=== PATIENT | female | born 1975 | race Caucasian/White ===

== ENCOUNTER → 2019-02-15 | Outpatient (CLI) | payer OTHER ==
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
== END | disposition home or self-care (01) ==
LOC: RADXRMAIN 12:12
PROVIDERS: ATTEND Family Medicine
DX: S62.396A Other fracture of fifth metacarpal bone, right hand, initial encounter for closed fracture (principal); S52.611K Displaced fracture of right ulna styloid process, subsequent encounter for closed fracture with nonunion

== ENCOUNTER 2020-07-14 20:30 | Observation (INO) | payer OTHER ==
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
[2020-07-14] MEDS ORDERED: LORazepam 2 MG/ML INJ IV PRN (21:37)
[2020-07-14] MEDS ORDERED: NALOXONE 0.4 MG/ML 1 ML VIAL IV PRN (21:37)
[2020-07-14 21:50] LABS: Basophils # (A) 0.1 k/uL (0-0.2); Basophils % (A) 1 %; Eosinophils # (A) 0.1 k/uL (0-0.7); Eosinophils % (A) 2 %; HCT 40.7 % (34.0-46.0); HGB 13.5 gm/dL (11.4-16.0); Lymphocytes # (A) 1.7 k/uL (1.0-4.8); Lymphocytes % (A) 26 %; MCH 32.8 pg (25.0-35.0); MCHC 33.2 g/dL (31.0-37.0); MCV 98.8 fL (80.0-100.0); Mean Platelet Volume 6.7; Monocytes # (A) 0.3 k/uL (0-1.0); Monocytes % (A) 5 %; Neutrophils # (A) 4.2 k/uL (1.3-7.7); Neutrophils % (A) 64 %; Platelet Count 295 k/uL (150-450); RBC 4.12 m/uL (3.80-5.40); RDW 13.5 % (11.5-15.5); WBC 6.6 k/uL (3.8-10.6)
[2020-07-14 22:01] LABS: African American GFR (CKD) >90 (>60 ml/min/1.73 sqM); Anion Gap 7 mmol/L; Blood Urea Nitrogen 11 mg/dL (7-17); Calcium 8.4 mg/dL (8.4-10.2); Carbon Dioxide 24 mmol/L (22-30); Chloride 111 mmol/L (98-107); Glucose 116 mg/dL (74-99); Non-African American GFR(CKD) >90 (>60 ml/min/1.73 sqM); Sodium 142 mmol/L (137-145)
[2020-07-14] MEDS: SODIUM CHLORIDE 0.9% 1,000 ML IV SCH (22:04)
[2020-07-14 22:18] LABS: Alcohol 384 mg/dL
[2020-07-14] MEDS: LORazepam 2 MG/ML INJ IV PRN ×2 (22:41→23:10)
[2020-07-14] MEDS ORDERED: DILTIAZEM 5 MG/ML 10 ML VIAL IVP STA (23:06)
[2020-07-14] MEDS ORDERED: DILTIAZEM 125 MG in SODIUM CHLORIDE 0.9% 100 ML IV SCH (23:30)
[2020-07-15] MEDS: traMADol 50 MG TAB PO PRN ×3 (03:49→22:54)
[2020-07-15] MEDS: IBUPROFEN 800 MG TAB PO PRN (06:06)
[2020-07-15] MEDS: THIAMINE 100 MG TAB PO SCH ×2 (06:07→18:28)
[2020-07-15] MEDS ORDERED: ONDANSETRON 4 MG/2 ML VIAL IVP PRN (06:34)
[2020-07-15] MEDS: LORazepam 2 MG/ML INJ IV PRN ×4 (08:07→21:46)
[2020-07-15 09:50] LABS: Basophils # (A) 0.1 k/uL (0-0.2); Basophils % (A) 1 %; Eosinophils # (A) 0.1 k/uL (0-0.7); Eosinophils % (A) 1 %; HCT 38.9 % (34.0-46.0); HGB 13.1 gm/dL (11.4-16.0); Lymphocytes % (A) 12 %; MCH 33.8 pg (25.0-35.0); MCHC 33.7 g/dL (31.0-37.0); MCV 100.1 fL (80.0-100.0); Mean Platelet Volume 6.6; Monocytes # (A) 0.3 k/uL (0-1.0); Monocytes % (A) 4 %; Neutrophils # (A) 6.6 k/uL (1.3-7.7); Neutrophils % (A) 81 %; Platelet Count 235 k/uL (150-450); RBC 3.89 m/uL (3.80-5.40); RDW 13.4 % (11.5-15.5); WBC 8.2 k/uL (3.8-10.6)
[2020-07-15 10:04] LABS: ALT 19 U/L (4-34); AST 29 U/L (14-36); African American GFR (CKD) >90 (>60 ml/min/1.73 sqM); Albumin 3.4 g/dL (3.5-5.0); Alkaline Phosphatase 80 U/L (38-126); Anion Gap 4 mmol/L; Blood Urea Nitrogen 8 mg/dL (7-17); Calcium 7.6 mg/dL (8.4-10.2); Carbon Dioxide 26 mmol/L (22-30); Chloride 106 mmol/L (98-107); Glucose 103 mg/dL (74-99); Non-African American GFR(CKD) >90 (>60 ml/min/1.73 sqM); Sodium 136 mmol/L (137-145); Total Bilirubin 0.4 mg/dL (0.2-1.3); Total Protein 5.6 g/dL (6.3-8.2)
[2020-07-15] MEDS: METOPROLOL TARTRATE 50 MG TAB PO SCH ×3 (11:02→21:45)
[2020-07-15] MEDS: SODIUM CHLORIDE 0.9% 1,000 ML IV SCH ×2 (11:03→22:55)
--- NOTE | 2020-07-15 11:08 | P.CRDCN ---
History of Present Illness Consult date: 07/15/20 History of present illness: CHIEF COMPLAINT: SVT HISTORY OF PRESENT ILLNESS: 44-year-old female with a history of alcohol abuse and hypertension who presented to the emergency room secondary to acute alcohol intoxication. Patient was admitted to the hospital for further evaluation. Patient's alcohol level was 384 upon admission and she reports drinking at least a pint per day. Patient went into SVT overnight and cardiology was consulted for further evaluation. Patient was started on a Cardizem drip. Her heart rate has improved and is in the low 100s. She denies chest pain. Denies shortness of breath. DIAGNOSTICS: EKG reveals SVT. Heart rate 180s Laboratory data: WBC 8.2. Hemoglobin 13.1. Platelet count 235. Sodium 136. Potassium 4.0. BUN 8. Creatinine 0.60. Magnesium 1.9. Current home cardiac medications include hydrochlorothiazide 12.5 mg daily REVIEW OF SYSTEMS: CONSTITUTIONAL: Denies fever or chills. HEENT: Denies blurred vision, vision changes, or eye pain. Denies hemoptysis CARDIOVASCULAR: Denies chest pain, orthopnea, PND or palpitations RESPIRATORY: No shortness of breath. GASTROINTESTINAL: Denies abdominal pain. Denies nausea or vomiting. HEMATOLOGIC: Denies bleeding disorders. GENITOURINARY: Denies any blood in urine. SKIN: Denies pruitis. Denies rash. PHYSICAL EXAM: VITAL SIGNS: Reviewed. GENERAL: Well-developed in no acute distress. HEENT: Head is normocephalic. Pupils are equal, round. Sclerae anicteric. Mucous membranes of the mouth are moist. Neck supple. No JVD or thyromegaly LUNGS: Respirations even and unlabored. Lungs essentially clear to auscultation bilaterally. HEART: Regular rate and rhythm. S1 and S2 heard. ABDOMEN: Soft. Nontender. EXTREMITIES: Normal range of motion. No clubbing or cyanosis. Peripheral pulses intact. No lower extremity edema NEUROLOGIC: Awake and alert. Oriented x 3. ASSESSMENT: Paroxysmal supraventricular tachycardia Acute alcohol intoxication History of hypertension Alcohol abuse PLAN: Begin metoprolol 50 mg 3 times a day Discontinue HCTZ Discontinue Cardizem drip Obtain 2-D echo to assess cardiac structure and function Abstinence from alcohol encouraged Nurse practitioner note has been reviewed by physician. Signing provider agrees with the documented findings, assessment, and plan of care. Past Medical History Past Medical History: Hypertension Additional Past Medical History / Comment(s): Herniated Disk History of Any Multi-Drug Resistant Organisms: None Reported Past Surgical History: Orthopedic Surgery Additional Past Surgical History / Comment(s): Exploratory surgery Past Anesthesia/Blood Transfusion Reactions: No Reported Reaction Smoking Status: Current every day smoker Past Alcohol Use History: Abuse, Heavy Additional Past Alcohol Use History / Comment(s): just started smoking a pack a day. pt states she also just used marijuana Past Drug Use History: Marijuana - Past Family History Father Family Medical History: Osteoarthritis (OA) Medications and Allergies Home Medications Medication Instructions Recorded Confirmed Type Hydrochlorothiazide 12.5 mg PO DAILY 07/14/20 07/14/20 History [hydroCHLOROthiazide] Ibuprofen [Motrin] 800 mg PO BID 07/14/20 07/14/20 History traMADol HCl [Ultram] 50 mg PO Q8H PRN 07/14/20 07/14/20 History Allergies Allergy/AdvReac Type Severity Reaction Status Date / Time milk Allergy Unknown Verified 07/14/20 20:39 Penicillins Allergy Unknown Verified 07/14/20 20:39 Childhood Physical Exam Vitals: Vital Signs Temp Pulse Pulse Resp BP BP Pulse Ox 07/15/20 08:00 98.4 F 103 H 18 153/90 97 07/15/20 03:44 106 H 18 07/15/20 03:39 97.9 F 106 H 18 123/80 98 07/15/20 00:00 181 H 18 07/14/20 23:50 98.0 F 106 H 18 123/80 98 07/14/20 23:30 167 H 18 125/80 98 07/14/20 23:00 180 H 135/88 99 07/14/20 22:48 177 H 141/92 07/14/20 22:44 180 H 20 141/100 99 07/14/20 22:30 179 H 18 162/100 99 07/14/20 21:55 71 18 110/65 98 07/14/20 20:36 98.6 F 127 H 20 162/109 98 Intake and Output 07/14/20 07/15/20 07/15/20 22:59 06:59 14:59 Intake Total 600 Balance 600 Intake: Intake, IV Titration 600 Amount Sodium Chloride 0.9% 1, 600 000 ml @ 75 mls/hr IV . [id number] [facility] Rx#:[id number] Other: Voiding Method Toilet Toilet # Voids 2 1 Weight 77.111 kg 88 kg Results 07/15/20 09:23 07/15/20 09:23 Cardiac Enzymes 07/15/20 Range/Units 09:23 AST 29 (14-36) U/L CBC 07/14/20 07/15/20 Range/Units 21:38 09:23 WBC 6.6 8.2 (3.8-10.6) k/uL RBC 4.12 3.89 (3.80-5.40) m/uL Hgb 13.5 13.1 (11.4-16.0) gm/dL Hct 40.7 38.9 (34.0-46.0) % Plt Count 295 235 (150-450) k/uL Comprehensive Metabolic Panel 07/14/20 07/15/20 Range/Units 21:38 09:23 Sodium 142 136 L (137-145) mmol/L Potassium 4.0 4.0 (3.5-5.1) mmol/L Chloride 111 H 106 (98-107) mmol/L Carbon Dioxide 24 26 (22-30) mmol/L BUN 11 8 (7-17) mg/dL Creatinine 0.76 0.60 (0.52-1.04) mg/dL Glucose 116 H 103 H (74-99) mg/dL Calcium 8.4 7.6 L (8.4-10.2) mg/dL AST 29 (14-36) U/L ALT 19 (4-34) U/L Alkaline Phosphatase 80 (38-126) U/L Total Protein 5.6 L (6.3-8.2) g/dL Albumin 3.4 L (3.5-5.0) g/dL Current Medications Generic Name Dose Route Start Last Admin Trade Name Freq PRN Reason Stop Dose Admin Sodium Chloride 1,000 mls @ 75 mls/hr 07/14/20 21:45 07/14/20 22:04 Saline 0.9% IV 75 mls/hr .[id number] [facility]ISAEL Administration Ibuprofen 800 mg 07/15/20 03:43 07/15/20 06:06 Motrin PO 800 mg BID PRN Administration Mild to Moderate Pain Lorazepam 1 mg 07/14/20 21:37 07/15/20 08:07 Ativan IV 1 mg Q2HR PRN Administration CIWA 8 or 9 Lorazepam 1 mg 07/14/20 21:37 07/14/20 23:10 Ativan IV 1 mg Q1HR PRN Administration CIWA 10 to 15 Lorazepam 2 mg 07/14/20 21:37 Ativan IV 07/16/20 21:37 Q10M PRN CIWA 16 or higher Metoprolol Tartrate 50 mg 07/15/20 09:30 Lopressor PO TID [facility] Naloxone HCl 0.2 mg 07/14/20 21:37 Narcan IV Q2M PRN Opioid Reversal Ondansetron HCl 4 mg 07/15/20 06:34 07/15/20 06:38 Zofran IVP 4 mg Q8HR PRN Administration Nausea And Vomiting Thiamine HCl 100 mg 07/15/20 07:30 07/15/20 06:07 Vitamin B-1 PO 100 mg BID-W/MEALS MISAEL Administration Tramadol HCl 50 mg 07/15/20 03:43 07/15/20 03:49 Ultram PO 50 mg Q8H PRN Administration Moderate to Severe Pain Intake and Output 07/14/20 07/15/20 07/15/20 22:59 06:59 14:59 Intake Total 600 Balance 600 Intake: Intake, IV Titration 600 Amount Sodium Chloride 0.9% 1, 600 000 ml @ 75 mls/hr IV . [id number] [facility] Rx#:[id number] Other: Voiding Method Toilet Toilet # Voids 2 1 Weight 77.111 kg 88 kg 07/15/20 09:23 07/15/20 09:23
[2020-07-15 11:11] LABS: T4, Free (Free Thyroxine) 0.96 ng/dL (0.78-2.19)
--- NOTE | 2020-07-15 12:00 | ECHOF ---
Referral Reason:chest pain/tachycardia MEASUREMENTS -------- HEIGHT: 167.6 cm WEIGHT: 88.0 kg BP: 153/90 RVIDd: 2.8 cm (< 3.3) IVSd: 1.0 cm (0.6 - 1.1) LVIDd: 4.7 cm (3.9 - 5.3) LVPWd: 1.0 cm (0.6 - 1.1) IVSs: 2.0 cm LVIDs: 1.8 cm LVPWs: 1.9 cm LAESV Index (A-L): 18.24 ml/m Ao Diam: 3.5 cm (2.0 - 3.7) AV Cusp: 2.3 cm (1.5 - 2.6) LA Diam: 3.5 cm (2.7 - 3.8) MV EXCURSION: 18.395 mm (> 18.000) MV EF SLOPE: 143 mm/s (70 - 150) EPSS: 0.3 cm MV E Smooth: 0.98 m/s MV DecT: 247 ms MV A Smooth: 0.65 m/s MV E/A Ratio: 1.51 RAP: 5.00 mmHg RVSP: 14.48 mmHg FINDINGS -------- This was a technically good study. The left ventricular size is normal. Left ventricular wall thickness is normal. Overall left vent ricular systolic function is normal with, an EF between 55 - 60 %. The diastolic filling pattern is normal for the age of the patient 12.30. The right ventricle is normal in size. The left atrial size is normal. Normal LA size by volume 22+/-6 ml/m2. The right atrial size is normal. Interatrial and interventricular septum intact. The aortic valve is trileaflet and appears structurally normal. The mitral valve is normal. Mild mitral regurgitation is present. The tricuspid valve appears structurally normal. Trace tricuspid regurgitation present. Right parveen tricular systolic pressure is normal at < 35 mmHg. There is no pulmonic regurgitation present. The aortic root size is normal. Normal inferior vena cava with normal inspiratory collapse consistent with estimated right atrial pre ssure of 5 mmHg. There is no pericardial effusion. CONCLUSIONS -------- 1. The left ventricular size is normal. 2. Left ventricular wall thickness is normal. 3. Overall left ventricular systolic function is normal with, an EF between 55 - 60 %. 4. The diastolic filling pattern is normal for the age of the patient 12.30 5. Mild mitral regurgitation is present. 6. Trace tricuspid regurgitation present. PRINCIPAL SYSTEMS ENGINEER: Mandy Gallardo RDCS
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
[2020-07-16] MEDS: IBUPROFEN 800 MG TAB PO PRN (02:19)
[2020-07-16] MEDS: LORazepam 2 MG/ML INJ IV PRN ×4 (02:19→20:05)
[2020-07-16] MEDS: THIAMINE 100 MG TAB PO SCH ×2 (06:14→16:27)
[2020-07-16 06:53] LABS: Basophils % (A) 0 %; Eosinophils # (A) 0.3 k/uL (0-0.7); Eosinophils % (A) 5 %; HCT 37.6 % (34.0-46.0); HGB 12.5 gm/dL (11.4-16.0); Lymphocytes # (A) 1.1 k/uL (1.0-4.8); Lymphocytes % (A) 22 %; MCH 33.6 pg (25.0-35.0); MCHC 33.2 g/dL (31.0-37.0); MCV 101.4 fL (80.0-100.0); Macrocytosis Slight; Mean Platelet Volume 6.9; Monocytes # (A) 0.2 k/uL (0-1.0); Monocytes % (A) 5 %; Neutrophils # (A) 3.2 k/uL (1.3-7.7); Neutrophils % (A) 66 %; Platelet Count 193 k/uL (150-450); RBC 3.71 m/uL (3.80-5.40); RDW 13.3 % (11.5-15.5); WBC 4.8 k/uL (3.8-10.6)
[2020-07-16 07:14] LABS: ALT 18 U/L (4-34); AST 28 U/L (14-36); African American GFR (CKD) >90 (>60 ml/min/1.73 sqM); Alkaline Phosphatase 79 U/L (38-126); Anion Gap 4 mmol/L; Blood Urea Nitrogen 10 mg/dL (7-17); Calcium 7.6 mg/dL (8.4-10.2); Carbon Dioxide 24 mmol/L (22-30); Chloride 108 mmol/L (98-107); Glucose 103 mg/dL (74-99); Non-African American GFR(CKD) >90 (>60 ml/min/1.73 sqM); Potassium 3.4 mmol/L (3.5-5.1); Sodium 136 mmol/L (137-145); Total Bilirubin 0.6 mg/dL (0.2-1.3); Total Protein 5.2 g/dL (6.3-8.2)
[2020-07-16] MEDS ORDERED: Potassium Replacement Protocol 1 EACH MISC MISCELLANE PRN (07:25)
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
[2020-07-16] MEDS: METOPROLOL TARTRATE 50 MG TAB PO SCH ×3 (09:13→20:05)
[2020-07-16] MEDS: POTASSIUM CHLORIDE ER 20 MEQ TAB.ER PO SCH ×2 (09:13→11:09)
[2020-07-16] MEDS: traMADol 50 MG TAB PO PRN ×2 (09:14→20:04)
[2020-07-16] MEDS: amLODIPine 5 MG TAB PO SCH (11:09)
--- NOTE | 2020-07-16 12:42 | P.PN ---
Subjective Progress Note Date: 07/16/20 CHIEF COMPLAINT: SVT HISTORY OF PRESENT ILLNESS: Patient examined at the bedside. She denies chest pain. Denies shortness of breath. No further SVT on telemetry. Blood pressure elevated this morning. PHYSICAL EXAM: VITAL SIGNS: Reviewed. GENERAL: Well-developed in no acute distress. HEENT: Head is normocephalic. Pupils are equal, round. Sclerae anicteric. Mucous membranes of the mouth are moist. Neck supple. No JVD or thyromegaly LUNGS: Respirations even and unlabored. Lungs essentially clear to auscultation bilaterally. HEART: Regular rate and rhythm. S1 and S2 heard. EXTREMITIES: Normal range of motion. No clubbing or cyanosis. Peripheral pulses intact. No lower extremity edema NEUROLOGIC: Awake and alert. Oriented x 3. ASSESSMENT: Paroxysmal supraventricular tachycardia Acute alcohol intoxication History of hypertension Alcohol abuse PLAN: Abstinence from alcohol encouraged Continue current cardiac medications Begin Norvasc 5mg daily Monitor blood pressure Nurse practitioner note has been reviewed by physician. Signing provider agrees with the documented findings, assessment, and plan of care. Objective - Vital Signs Vital signs: Vital Signs Temp 98.8 F 07/16/20 12:00 Pulse 65 07/16/20 12:00 Resp 17 07/16/20 12:00 BP 171/96 07/16/20 12:00 Pulse Ox 100 07/16/20 12:00 Intake & Output 07/15/20 07/16/20 07/16/20 18:59 06:59 18:59 Intake Total 462 1200 0 Balance 462 1200 0 Weight 90 kg Intake: Intake, IV Titration 1200 Amount Sodium Chloride 0.9% 1, 1200 000 ml @ 75 mls/hr IV . [id number] [facility] Rx#:[id number] Oral 462 0 Other: Voiding Method Toilet Toilet Toilet # Voids 4 2 2 - Labs CBC & Chem 7: 07/16/20 06:11 07/16/20 06:11 Labs: Abnormal Lab Results - Last 24 Hours (Table) 07/16/20 07/16/20 Range/Units 06:11 06:11 RBC 3.71 L (3.80-5.40) m/uL MCV 101.4 H (80.0-100.0) fL Sodium 136 L (137-145) mmol/L Potassium 3.4 L (3.5-5.1) mmol/L Chloride 108 H (98-107) mmol/L Glucose 103 H (74-99) mg/dL Calcium 7.6 L (8.4-10.2) mg/dL Total Protein 5.2 L (6.3-8.2) g/dL Albumin 3.0 L (3.5-5.0) g/dL
[2020-07-16] MEDS: SODIUM CHLORIDE 0.9% 1,000 ML IV SCH (16:27)
[2020-07-17] MEDS: IBUPROFEN 800 MG TAB PO PRN (01:34)
[2020-07-17] MEDS: LORazepam 2 MG/ML INJ IV PRN ×4 (01:35→18:13)
[2020-07-17] MEDS: SODIUM CHLORIDE 0.9% 1,000 ML IV SCH ×2 (03:00→15:16)
[2020-07-17] MEDS: THIAMINE 100 MG TAB PO SCH ×2 (06:54→15:34)
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
[2020-07-17 07:35] LABS: African American GFR (CKD) >90 (>60 ml/min/1.73 sqM); Anion Gap 4 mmol/L; Blood Urea Nitrogen 11 mg/dL (7-17); Calcium 8.8 mg/dL (8.4-10.2); Carbon Dioxide 25 mmol/L (22-30); Chloride 107 mmol/L (98-107); Glucose 106 mg/dL (74-99); Non-African American GFR(CKD) >90 (>60 ml/min/1.73 sqM); Potassium 4.5 mmol/L (3.5-5.1); Sodium 136 mmol/L (137-145)
[2020-07-17] MEDS: METOPROLOL TARTRATE 50 MG TAB PO SCH ×3 (08:06→20:04)
[2020-07-17] MEDS: amLODIPine 5 MG TAB PO SCH ×3 (08:06→20:04)
[2020-07-17] MEDS: LOSARTAN 50 MG TAB PO SCH (09:06)
[2020-07-17] MEDS: traMADol 50 MG TAB PO PRN ×2 (09:06→18:12)
--- NOTE | 2020-07-17 11:14 | P.PN ---
Subjective Progress Note Date: 07/17/20 CHIEF COMPLAINT: SVT HISTORY OF PRESENT ILLNESS: Patient examined at the bedside. She denies chest pain. Denies shortness of breath. No further SVT on telemetry. Blood pressure remains elevated this morning at 176/110. PHYSICAL EXAM: VITAL SIGNS: Reviewed. GENERAL: Well-developed in no acute distress. HEENT: Head is normocephalic. Pupils are equal, round. Sclerae anicteric. Mucous membranes of the mouth are moist. Neck supple. No JVD or thyromegaly LUNGS: Respirations even and unlabored. Lungs essentially clear to auscultation bilaterally. HEART: Regular rate and rhythm. S1 and S2 heard. EXTREMITIES: Normal range of motion. No clubbing or cyanosis. Peripheral pulses intact. No lower extremity edema NEUROLOGIC: Awake and alert. Oriented x 3. ASSESSMENT: Paroxysmal supraventricular tachycardia Acute alcohol intoxication History of hypertension Alcohol abuse PLAN: Abstinence from alcohol encouraged Monitor blood pressure Increase Norvasc to 5 mg twice a day Begin losartan 50mg daily Nurse practitioner note has been reviewed by physician. Signing provider agrees with the documented findings, assessment, and plan of care. Objective - Vital Signs Vital signs: Vital Signs Temp 97.9 F 07/17/20 08:10 Pulse 85 07/17/20 08:10 Resp 16 07/17/20 08:10 BP 135/87 07/17/20 09:00 Pulse Ox 97 07/17/20 08:10 Intake & Output 07/16/20 07/17/20 07/17/20 18:59 06:59 18:59 Intake Total 0 236 Balance 0 236 Weight 88.4 kg Intake: Oral 0 236 Other: Voiding Method Toilet Toilet # Voids 4 1 2 - Labs CBC & Chem 7: 07/16/20 06:11 07/17/20 05:44 Labs: Abnormal Lab Results - Last 24 Hours (Table) 07/17/20 Range/Units 05:44 Sodium 136 L (137-145) mmol/L Glucose 106 H (74-99) mg/dL
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
[2020-07-18] MEDS: LORazepam 2 MG/ML INJ IV PRN ×7 (00:27→23:04)
[2020-07-18] MEDS: traMADol 50 MG TAB PO PRN ×2 (03:50→16:17)
[2020-07-18] MEDS: SODIUM CHLORIDE 0.9% 1,000 ML IV SCH ×2 (05:38→16:03)
[2020-07-18] MEDS: THIAMINE 100 MG TAB PO SCH ×2 (06:29→16:17)
[2020-07-18] MEDS: IBUPROFEN 800 MG TAB PO PRN (08:52)
[2020-07-18] MEDS: METOPROLOL TARTRATE 50 MG TAB PO SCH ×2 (08:52→20:00)
[2020-07-18] MEDS: amLODIPine 5 MG TAB PO SCH ×2 (08:52→20:00)
[2020-07-18] MEDS: LOSARTAN 50 MG TAB PO SCH (08:52)
[2020-07-19] MEDS: traMADol 50 MG TAB PO PRN ×2 (00:12→08:40)
[2020-07-19] MEDS: LORazepam 2 MG/ML INJ IV PRN ×2 (02:07→08:35)
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
[2020-07-19] MEDS: THIAMINE 100 MG TAB PO SCH (06:47)
[2020-07-19 08:32] VITALS: BP 160/87; PULSE 82; RESP 26; TEMP 97.8
[2020-07-19] MEDS: SODIUM CHLORIDE 0.9% 1,000 ML IV SCH (08:35)
[2020-07-19] MEDS: amLODIPine 5 MG TAB PO SCH (08:35)
[2020-07-19] MEDS: METOPROLOL TARTRATE 50 MG TAB PO SCH (08:35)
[2020-07-19] MEDS: LOSARTAN 50 MG TAB PO SCH (08:35)
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
== END 2020-07-19 12:19 | disposition home or self-care (01) ==
LOC: EC 20:30 → 1SOBS 21:37 → 3SCARD 23:27 → OBSVTOIN 07-15 12:33 → INTOOBSV 07-15 12:33 → UNDODISIN 07-19 12:19
PROVIDERS: ADMIT Family Medicine; ATTEND Family Medicine
DX: I47.1 Supraventricular tachycardia (principal); F10.239 Alcohol dependence with withdrawal, unspecified; F10.229 Alcohol dependence with intoxication, unspecified; Y90.8 Blood alcohol level of 240 mg/100 ml or more; I10 Essential (primary) hypertension; S05.10XA Contusion of eyeball and orbital tissues, unspecified eye, initial encounter; G89.29 Other chronic pain; Y09 Assault by unspecified means; M19.90 Unspecified osteoarthritis, unspecified site; F17.200 Nicotine dependence, unspecified, uncomplicated; Z98.890 Other specified postprocedural states; Z82.61 Family history of arthritis; Z79.1 Long term (current) use of non-steroidal anti-inflammatories (NSAID); Z79.891 Long term (current) use of opiate analgesic; Z79.899 Other long term (current) drug therapy; Z59.0 Homelessness; Z88.0 Allergy status to penicillin; Z91.011 Allergy to milk products
CPT/HCPCS: 96376 ×6; 96361 ×2; 96365; 96366; 96375 ×2; 93005; 82075; 99284; 36415; 94760; 93306; 84439; 80053 ×2; 80048 ×2; 84443; 83735 ×2; 85025 ×3; 84480; 70200; 70450; G0378 ×7; G0480; J2060 ×6; J2405; 80320

== ENCOUNTER 2021-02-20 21:11 | Inpatient (IN) | payer OTHER ==
--- NOTE | 2021-02-20 21:46 | ED ---
General Adult HPI - General Chief complaint: Anxiety Stated complaint: AL Time Seen by Provider: 02/20/21 21:23 Source: patient, EMS Mode of arrival: EMS Limitations: altered mental status (Appears intoxicated) - History of Present Illness Initial comments: Patient is 45-year-old woman with multiple complaints, the main one appearing to be that she is feeling anxious, short of breath and a little shaky. History limited as patient appears moderately intoxicated -: unknown Location: left, lower extremity Improves with: none Worsens with: none Associated Symptoms: shortness of breath - Related Data Home Medications Medication Instructions Recorded Confirmed Ibuprofen [Motrin] 800 mg PO BID 07/14/20 02/20/21 traMADol HCl [Ultram] 50 mg PO TID PRN 07/14/20 02/20/21 Multivitamins, Thera [Multivitamin 1 tab PO DAILY 02/20/21 02/20/21 (formulary)] Vitamin B-12(Unknown) 1 tab PO DAILY 02/20/21 02/20/21 hydroCHLOROthiazide [Hydrodiuril] 12.5 mg PO DAILY 02/20/21 02/20/21 Allergies Allergy/AdvReac Type Severity Reaction Status Date / Time Penicillins Allergy Unknown Verified 02/20/21 21:58 Childhood milk AdvReac Nausea & Verified 02/20/21 21:58 Vomiting & Diarrhea Review of Systems ROS Statement: Those systems with pertinent positive or pertinent negative responses have been documented in the HPI. ROS Other: All systems not noted in ROS Statement are negative. Respiratory: Reports: dyspnea Cardiovascular: Denies: chest pain, palpitations Gastrointestinal: Reports: nausea. Denies: abdominal pain Genitourinary: Denies: dysuria, hematuria Musculoskeletal: Reports: back pain (Chronic) Skin: Reports: lesions (Left foot) Neurological: Reports: weakness Psychiatric: Reports: anxiety Past Medical History Past Medical History: Hypertension Additional Past Medical History / Comment(s): Herniated Disk History of Any Multi-Drug Resistant Organisms: None Reported Past Surgical History: Orthopedic Surgery Additional Past Surgical History / Comment(s): Exploratory surgery Past Anesthesia/Blood Transfusion Reactions: No Reported Reaction Past Psychological History: No Psychological Hx Reported Smoking Status: Current every day smoker Past Alcohol Use History: Abuse, Heavy Past Drug Use History: Marijuana - Past Family History Father Family Medical History: Osteoarthritis (OA) General Exam Limitations: no limitations General appearance: alert, in no apparent distress, appears intoxicated Head exam: Present: atraumatic, normocephalic Eye exam: Present: normal appearance, PERRL, EOMI, nystagmus. Absent: scleral icterus, conjunctival injection ENT exam: Present: mucous membranes dry Neck exam: Present: normal inspection, full ROM. Absent: tenderness Respiratory exam: Present: normal lung sounds bilaterally. Absent: respiratory distress, wheezes, rales, rhonchi, stridor Cardiovascular Exam: Present: normal rhythm, tachycardia, normal heart sounds. Absent: systolic murmur, diastolic murmur, rubs, gallop GI/Abdominal exam: Present: soft. Absent: distended, tenderness, guarding, rebound, rigid, mass Extremities exam: Present: normal inspection, normal capillary refill. Absent: pedal edema, calf tenderness Back exam: Present: normal inspection. Absent: CVA tenderness (R), CVA tenderness (L), vertebral tenderness Neurological exam: Present: alert Skin exam: Present: warm, dry, intact, normal color. Absent: rash Course Vital Signs 02/20/21 02/20/21 02/21/21 21:14 21:37 00:00 Temperature 98.8 F Pulse Rate 110 H 98 Pulse Rate [ Pulse Oximetery ] Respiratory 18 28 H 18 Rate Blood Pressure 150/104 144/87 Blood Pressure [Left Arm] O2 Sat by Pulse 98 98 Oximetry 02/21/21 03:22 Temperature 98.0 F Pulse Rate Pulse Rate [ 67 Pulse Oximetery ] Respiratory 16 Rate Blood Pressure Blood Pressure 133/77 [Left Arm] O2 Sat by Pulse 97 Oximetry EKG Findings - EKG Results: EKG: interpreted by ERMD, sinus rhythm, normal axis, normal QRS, normal ST/T EKG shows: tachycardia (Rate is 108 bpm) Medical Decision Making - Medical Decision Making Patient is 45-year-old woman who is starting to manifest alcohol withdrawal syndrome. Patient be admitted and is covered with [facility] protocol - Lab Data Result diagrams: 02/22/21 06:25 02/22/21 06:25 Lab Results 02/20/21 02/20/21 02/20/21 Range/Units 21:46 21:46 21:46 WBC 5.0 (3.8-10.6) k/uL RBC 3.78 L (3.80-5.40) m/uL Hgb 12.2 (11.4-16.0) gm/dL Hct 35.1 (34.0-46.0) % MCV 93.1 (80.0-100.0) fL MCH 32.2 (25.0-35.0) pg MCHC 34.6 (31.0-37.0) g/dL RDW 16.7 H (11.5-15.5) % Plt Count 241 (150-450) k/uL MPV 7.0 Neutrophils % 44 % Lymphocytes % 45 % Monocytes % 6 % Eosinophils % 3 % Basophils % 1 % Neutrophils # 2.2 (1.3-7.7) k/uL Lymphocytes # 2.3 (1.0-4.8) k/uL Monocytes # 0.3 (0-1.0) k/uL Eosinophils # 0.1 (0-0.7) k/uL Basophils # 0.0 (0-0.2) k/uL Anisocytosis Slight PT 9.8 (9.0-12.0) sec INR 0.9 (<1.2) APTT 21.6 L (22.0-30.0) sec D-Dimer 0.94 H (<0.60) mg/L FEU Sodium 146 H (137-145) mmol/L Potassium 4.0 (3.5-5.1) mmol/L Chloride 112 H (98-107) mmol/L Carbon Dioxide 24 (22-30) mmol/L Anion Gap 10 mmol/L BUN 13 (7-17) mg/dL Creatinine 0.70 (0.52-1.04) mg/dL Est GFR (CKD-EPI)AfAm >90 (>60 ml/min/1.73 sqM) Est GFR (CKD-EPI)NonAf >90 (>60 ml/min/1.73 sqM) Glucose 101 H (74-99) mg/dL Calcium 8.2 L (8.4-10.2) mg/dL Magnesium 1.9 (1.6-2.3) mg/dL Total Bilirubin 0.2 (0.2-1.3) mg/dL AST 35 (14-36) U/L ALT 31 (4-34) U/L Alkaline Phosphatase 74 (38-126) U/L Troponin I (0.000-0.034) ng/mL NT-Pro-B Natriuret Pep pg/mL Total Protein 6.2 L (6.3-8.2) g/dL Albumin 3.7 (3.5-5.0) g/dL Urine HCG, Qual (Not Detectd) Serum Alcohol 293 H* mg/dL Coronavirus (PCR) (Not Detectd) 02/20/21 02/20/21 02/20/21 Range/Units 21:46 21:46 23:36 WBC (3.8-10.6) k/uL RBC (3.80-5.40) m/uL Hgb (11.4-16.0) gm/dL Hct (34.0-46.0) % MCV (80.0-100.0) fL MCH (25.0-35.0) pg MCHC (31.0-37.0) g/dL RDW (11.5-15.5) % Plt Count (150-450) k/uL MPV Neutrophils % % Lymphocytes % % Monocytes % % Eosinophils % % Basophils % % Neutrophils # (1.3-7.7) k/uL Lymphocytes # (1.0-4.8) k/uL Monocytes # (0-1.0) k/uL Eosinophils # (0-0.7) k/uL Basophils # (0-0.2) k/uL Anisocytosis PT (9.0-12.0) sec INR (<1.2) APTT (22.0-30.0) sec D-Dimer (<0.60) mg/L FEU Sodium (137-145) mmol/L Potassium (3.5-5.1) mmol/L Chloride (98-107) mmol/L Carbon Dioxide (22-30) mmol/L Anion Gap mmol/L BUN (7-17) mg/dL Creatinine (0.52-1.04) mg/dL Est GFR (CKD-EPI)AfAm (>60 ml/min/1.73 sqM) Est GFR (CKD-EPI)NonAf (>60 ml/min/1.73 sqM) Glucose (74-99) mg/dL Calcium (8.4-10.2) mg/dL Magnesium (1.6-2.3) mg/dL Total Bilirubin (0.2-1.3) mg/dL AST (14-36) U/L ALT (4-34) U/L Alkaline Phosphatase (38-126) U/L Troponin I <0.012 (0.000-0.034) ng/mL NT-Pro-B Natriuret Pep 106 pg/mL Total Protein (6.3-8.2) g/dL Albumin (3.5-5.0) g/dL Urine HCG, Qual Not Detected (Not Detectd) Serum Alcohol mg/dL Coronavirus (PCR) (Not Detectd) 02/20/21 Range/Units 23:36 WBC (3.8-10.6) k/uL RBC (3.80-5.40) m/uL Hgb (11.4-16.0) gm/dL Hct (34.0-46.0) % MCV (80.0-100.0) fL MCH (25.0-35.0) pg MCHC (31.0-37.0) g/dL RDW (11.5-15.5) % Plt Count (150-450) k/uL MPV Neutrophils % % Lymphocytes % % Monocytes % % Eosinophils % % Basophils % % Neutrophils # (1.3-7.7) k/uL Lymphocytes # (1.0-4.8) k/uL Monocytes # (0-1.0) k/uL Eosinophils # (0-0.7) k/uL Basophils # (0-0.2) k/uL Anisocytosis PT (9.0-12.0) sec INR (<1.2) APTT (22.0-30.0) sec D-Dimer (<0.60) mg/L FEU Sodium (137-145) mmol/L Potassium (3.5-5.1) mmol/L Chloride (98-107) mmol/L Carbon Dioxide (22-30) mmol/L Anion Gap mmol/L BUN (7-17) mg/dL Creatinine (0.52-1.04) mg/dL Est GFR (CKD-EPI)AfAm (>60 ml/min/1.73 sqM) Est GFR (CKD-EPI)NonAf (>60 ml/min/1.73 sqM) Glucose (74-99) mg/dL Calcium (8.4-10.2) mg/dL Magnesium (1.6-2.3) mg/dL Total Bilirubin (0.2-1.3) mg/dL AST (14-36) U/L ALT (4-34) U/L Alkaline Phosphatase (38-126) U/L Troponin I (0.000-0.034) ng/mL NT-Pro-B Natriuret Pep pg/mL Total Protein (6.3-8.2) g/dL Albumin (3.5-5.0) g/dL Urine HCG, Qual (Not Detectd) Serum Alcohol mg/dL Coronavirus (PCR) Not Detected (Not Detectd) Disposition Clinical Impression: Alcohol withdrawal delirium Disposition: ADMITTED IP TO THIS HOSP Condition: Serious Is patient prescribed a controlled substance at d/c from ED?: No
[2021-02-20] MEDS: SODIUM CHLORIDE 0.9% 1,000 ML IV STA ×2 (21:55→22:45)
[2021-02-20 22:02] LABS: Anisocytosis Slight; Basophils % (A) 1 %; Eosinophils # (A) 0.1 k/uL (0-0.7); Eosinophils % (A) 3 %; HCT 35.1 % (34.0-46.0); HGB 12.2 gm/dL (11.4-16.0); Lymphocytes # (A) 2.3 k/uL (1.0-4.8); Lymphocytes % (A) 45 %; MCH 32.2 pg (25.0-35.0); MCHC 34.6 g/dL (31.0-37.0); MCV 93.1 fL (80.0-100.0); Monocytes # (A) 0.3 k/uL (0-1.0); Monocytes % (A) 6 %; Neutrophils # (A) 2.2 k/uL (1.3-7.7); Neutrophils % (A) 44 %; Platelet Count 241 k/uL (150-450); RBC 3.78 m/uL (3.80-5.40); RDW 16.7 % (11.5-15.5)
[2021-02-20 22:17] LABS: ALT 31 U/L (4-34); AST 35 U/L (14-36); African American GFR (CKD) >90 (>60 ml/min/1.73 sqM); Albumin 3.7 g/dL (3.5-5.0); Alkaline Phosphatase 74 U/L (38-126); Anion Gap 10 mmol/L; Blood Urea Nitrogen 13 mg/dL (7-17); Calcium 8.2 mg/dL (8.4-10.2); Carbon Dioxide 24 mmol/L (22-30); Chloride 112 mmol/L (98-107); Glucose 101 mg/dL (74-99); Magnesium 1.9 mg/dL (1.6-2.3); Non-African American GFR(CKD) >90 (>60 ml/min/1.73 sqM); Sodium 146 mmol/L (137-145); Total Bilirubin 0.2 mg/dL (0.2-1.3); Total Protein 6.2 g/dL (6.3-8.2)
[2021-02-20 22:22] LABS: Alcohol 293 mg/dL
[2021-02-20 22:25] LABS: INR 0.9 (<1.2); Partial Thromboplastin Time 21.6 sec (22.0-30.0); Prothrombin Time 9.8 sec (9.0-12.0)
[2021-02-20 22:30] LABS: D-Dimer 0.94 mg/L FEU (<0.60)
--- NOTE | 2021-02-20 22:32 | XR ---
EXAMINATION TYPE: XR chest 2V DATE OF EXAM: 02/20/2021 COMPARISON: NONE HISTORY: Chest pain TECHNIQUE: 2 views FINDINGS: Heart and mediastinum are normal. Lungs are clear. Diaphragm is normal. Bony thorax appears normal. IMPRESSION: Normal chest..
--- NOTE | 2021-02-20 23:38 | CT ---
EXAMINATION TYPE: CT chest angio for PE DATE OF EXAM: 02/20/2021 COMPARISON: None HISTORY: PE CT DLP: 410.3 mGycm Automated exposure control for dose reduction was used. CONTRAST: Performed with IV Contrast, patient injected with 60 mL of Isovue 370. There are 3-D post processed images. The lungs are clear of infiltrate. There is no pleural effusion. There is no pericardial effusion. He art size is normal. There is no mediastinal adenopathy. There are no hilar masses. Thoracic aorta is intact. There is no aneurysm or dissection. Ascending aorta measures 3.4 cm. There is normal contrast opacification of the pulmonary arteries. There are no filling defects. The b [place] thorax is intact. There is minor spurring in the thoracic spine. Sternum is intact. There is no c ompression fracture. IMPRESSION: Normal exam. No evidence of pulmonary embolism.
[2021-02-21] MEDS ORDERED: LORazepam 2 MG/ML INJ IV STA (00:05)
[2021-02-21] MEDS ORDERED: MAG HYDROX/AL HYDROX/SIMETH 30 ML CUP PO PRN (00:08)
[2021-02-21] MEDS ORDERED: NALOXONE 0.4 MG/ML 1 ML VIAL IV PRN (00:08)
[2021-02-21] MEDS ORDERED: LORazepam 2 MG/ML INJ IV PRN (00:10)
[2021-02-21] MEDS: LORazepam 2 MG/ML INJ IV PRN ×6 (02:57→22:00)
[2021-02-21] MEDS: SODIUM CHLORIDE 0.9% 1,000 ML IV SCH ×3 (05:38→16:34)
[2021-02-21] MEDS: FAMOTIDINE 20 MG TAB PO SCH ×2 (10:10→21:59)
[2021-02-21] MEDS: traMADol 50 MG TAB PO PRN ×2 (10:10→19:13)
[2021-02-21] MEDS: CYANOCOBALAMIN 500 MCG TAB PO SCH (10:10)
[2021-02-21] MEDS: IBUPROFEN 800 MG TAB PO SCH ×2 (10:11→21:59)
[2021-02-21] MEDS: hydroCHLOROthiazide 12.5 MG CAP PO SCH (10:31)
--- NOTE | 2021-02-21 10:45 | HP ---
HISTORY AND PHYSICAL A 45-year-old white female who came in with alcohol withdrawal, alcohol intoxication, alcohol neuropathy, atypical chest pain. CT of the chest was done in the emergency room, which apparently came back okay. HOME MEDICATIONS: Multivitamin, HydroDIURIL, Tramadol, Motrin. REVIEW OF SYSTEMS: Fourteen-point review of systems is positive for tremors, weakness, nausea, hypertension. PAST MEDICAL HISTORY: Hypertension, prior alcohol intoxication admission, prior wrist surgery, herniated disc. SOCIAL HISTORY: Heavy alcohol abuse, marijuana. Current everyday smoker. PHYSICAL EXAMINATION: Temperature 98.8, pulse 110, respiratory 18-28, blood pressure is 150/104, O2 is 98. Cardiovascular S1, S2. Lungs clear. GI soft. Hematology negative Homans. Psych fair mood and affect. Neurologic alert orient x3. Ophthalmologic pupils equal, round, reactive. EKG shows some sinus tachycardia. White count 5.0, hemoglobin 12.2, platelets 241. ASSESSMENT: Alcohol intoxication, alcohol withdrawal. Alcohol level near 300, pending delirium tremens. Started on CIWA protocol, anxiety medicines, home pain medicines. for reasons for alcohol withdrawal including depression as well as discussed rehab, etc. MMODL / IJN: [id number] /
[2021-02-21] MEDS: AZITHROMYCIN 500 MG in SODIUM CHLORIDE 0.9% 250 ML IVPB SCH (11:40)
[2021-02-21] MEDS: methylPREDNISolone SOD SUCCI 40 MG/ML 1 ML VIAL IV SCH ×3 (11:40→22:49)
[2021-02-21] MEDS: THIAMINE 100 MG TAB PO SCH (16:29)
[2021-02-21] MEDS: ONDANSETRON 4 MG/2 ML VIAL IVP PRN (19:11)
[2021-02-21] MEDS: SYMBICORT 160-4.5 MCG INHALER INHALATION SCH (20:24)
[2021-02-22] MEDS: LORazepam 2 MG/ML INJ IV PRN ×3 (03:40→14:01)
[2021-02-22] MEDS: traMADol 50 MG TAB PO PRN ×2 (03:40→10:00)
[2021-02-22] MEDS: SODIUM CHLORIDE 0.9% 1,000 ML IV SCH ×3 (03:58→17:07)
[2021-02-22 07:27] LABS: Basophils % (A) 0 %; Eosinophils # (A) 0.1 k/uL (0-0.7); Eosinophils % (A) 1 %; HCT 37.7 % (34.0-46.0); HGB 13.2 gm/dL (11.4-16.0); Lymphocytes # (A) 0.4 k/uL (1.0-4.8); Lymphocytes % (A) 4 %; MCH 32.7 pg (25.0-35.0); MCV 93.5 fL (80.0-100.0); Mean Platelet Volume 8.4; Monocytes # (A) 0.3 k/uL (0-1.0); Monocytes % (A) 3 %; Neutrophils # (A) 10.3 k/uL (1.3-7.7); Neutrophils % (A) 93 %; Platelet Count 246 k/uL (150-450); RBC 4.03 m/uL (3.80-5.40); WBC 11.1 k/uL (3.8-10.6)
[2021-02-22 08:02] LABS: ALT 24 U/L (4-34); AST 25 U/L (14-36); African American GFR (CKD) >90 (>60 ml/min/1.73 sqM); Alkaline Phosphatase 86 U/L (38-126); Anion Gap 6 mmol/L; Blood Urea Nitrogen 12 mg/dL (7-17); Calcium 9.5 mg/dL (8.4-10.2); Carbon Dioxide 23 mmol/L (22-30); Chloride 106 mmol/L (98-107); Glucose 156 mg/dL (74-99); Non-African American GFR(CKD) >90 (>60 ml/min/1.73 sqM); Potassium 4.3 mmol/L (3.5-5.1); Sodium 135 mmol/L (137-145); Total Bilirubin 0.4 mg/dL (0.2-1.3); Total Protein 6.8 g/dL (6.3-8.2)
[2021-02-22] MEDS: hydroCHLOROthiazide 12.5 MG CAP PO SCH (09:31)
[2021-02-22] MEDS: IBUPROFEN 800 MG TAB PO SCH ×2 (09:31→09:52)
[2021-02-22] MEDS: FAMOTIDINE 20 MG TAB PO SCH (09:32)
[2021-02-22] MEDS: THIAMINE 100 MG TAB PO SCH ×2 (09:32→17:07)
[2021-02-22] MEDS: methylPREDNISolone SOD SUCCI 40 MG/ML 1 ML VIAL IV SCH ×2 (09:32→17:07)
[2021-02-22] MEDS: CYANOCOBALAMIN 500 MCG TAB PO SCH (09:32)
[2021-02-22] MEDS: SYMBICORT 160-4.5 MCG INHALER INHALATION SCH (09:46)
[2021-02-22] MEDS: AZITHROMYCIN 500 MG in SODIUM CHLORIDE 0.9% 250 ML IVPB SCH (10:01)
[2021-02-22] MEDS: ONDANSETRON 4 MG/2 ML VIAL IVP PRN (13:17)
[2021-02-22 14:35] VITALS: BP 151/93; PULSE 83; RESP 16; TEMP 98.1
== END 2021-02-22 17:50 | disposition home or self-care (01) | DRG 897 ==
LOC: EC 21:11 → 6NMEDSUR 02-21 00:09 → 1SOBS 02-21 03:30 → OBSVTOIN 02-22 12:34
PROVIDERS: ADMIT Family Medicine; ATTEND Family Medicine
DX: F10.231 Alcohol dependence with withdrawal delirium (principal); F17.200 Nicotine dependence, unspecified, uncomplicated; F32.9 Major depressive disorder, single episode, unspecified; F41.9 Anxiety disorder, unspecified; G62.1 Alcoholic polyneuropathy; I10 Essential (primary) hypertension; Y90.8 Blood alcohol level of 240 mg/100 ml or more; Z20.822 Contact with and (suspected) exposure to COVID-19
CPT/HCPCS: 36415; 71046; 71275; 80053; 80320; 81025; 83735; 83880; 84484; 85025; 85379; 85610; 85730; 87635; 93005; 94640; 99285

== ENCOUNTER 2021-03-26 00:27 | Inpatient (IN) | payer OTHER ==
[2021-03-26] MEDS ORDERED: LORazepam 2 MG/ML INJ IV STA (01:15)
[2021-03-26] MEDS ORDERED: SODIUM CHLORIDE 0.9% 500 ML 500 ML IV STA (01:15)
[2021-03-26] MEDS ORDERED: ADENOSINE 3 MG/ML 2 ML VIAL IVP STA (01:39)
[2021-03-26 01:48] LABS: Anisocytosis Slight; Basophils % (A) 1 %; Eosinophils # (A) 0.1 k/uL (0-0.7); Eosinophils % (A) 1 %; HCT 31.9 % (34.0-46.0); Lymphocytes # (A) 2.2 k/uL (1.0-4.8); Lymphocytes % (A) 38 %; MCH 31.7 pg (25.0-35.0); MCHC 34.5 g/dL (31.0-37.0); Mean Platelet Volume 6.8; Monocytes # (A) 0.2 k/uL (0-1.0); Monocytes % (A) 4 %; Neutrophils # (A) 3.2 k/uL (1.3-7.7); Neutrophils % (A) 55 %; Platelet Count 242 k/uL (150-450); RBC 3.47 m/uL (3.80-5.40); RDW 16.2 % (11.5-15.5); WBC 5.8 k/uL (3.8-10.6)
[2021-03-26 01:58] LABS: ALT 20 U/L (4-34); AST 35 U/L (14-36); African American GFR (CKD) >90 (>60 ml/min/1.73 sqM); Albumin 3.9 g/dL (3.5-5.0); Alkaline Phosphatase 91 U/L (38-126); Anion Gap 10 mmol/L; Blood Urea Nitrogen 6 mg/dL (7-17); Calcium 8.4 mg/dL (8.4-10.2); Carbon Dioxide 24 mmol/L (22-30); Chloride 107 mmol/L (98-107); Glucose 97 mg/dL (74-99); Magnesium 1.9 mg/dL (1.6-2.3); Non-African American GFR(CKD) >90 (>60 ml/min/1.73 sqM); Potassium 3.8 mmol/L (3.5-5.1); Sodium 141 mmol/L (137-145); Total Bilirubin 0.3 mg/dL (0.2-1.3); Total Protein 6.3 g/dL (6.3-8.2)
[2021-03-26] MEDS ORDERED: NITROGLYCERIN SL TABS 0.4 MG TAB SUBLINGUAL PRN (04:19)
[2021-03-26] MEDS ORDERED: LORazepam 2 MG/ML INJ IV PRN ×2 (04:22)
[2021-03-26] MEDS: LORazepam 2 MG/ML INJ IV PRN ×6 (06:03→19:52)
[2021-03-26] MEDS ORDERED: ONDANSETRON 4 MG/2 ML VIAL IVP PRN (12:44)
[2021-03-26] MEDS ORDERED: amLODIPine 5 MG TAB PO SCH (13:00)
[2021-03-26] MEDS ORDERED: cloNIDine HCL 0.1 MG TAB PO SCH (13:00)
[2021-03-26] MEDS: PANTOPRAZOLE 40 MG/10 ML VIAL IVP SCH (13:07)
[2021-03-26] MEDS: NICOTINE 21MG/24HR PATCH TRANSDERM SCH (13:08)
[2021-03-26] MEDS: METOPROLOL TARTRATE 25 MG TAB PO SCH ×2 (13:08→21:23)
[2021-03-26] MEDS: THIAMINE 100 MG TAB PO SCH (17:45)
[2021-03-26] MEDS: IPRATROPIUM-ALBUTEROL 3 ML NEB INHALATION PRN (19:58)
[2021-03-26] MEDS: SYMBICORT 160-4.5 MCG INHALER INHALATION SCH (19:58)
[2021-03-26] MEDS: IBUPROFEN 800 MG TAB PO SCH (20:47)
[2021-03-26] MEDS: traMADol 50 MG TAB PO PRN (23:30)
[2021-03-27] MEDS: LORazepam 2 MG/ML INJ IV PRN ×6 (01:50→23:19)
[2021-03-27] MEDS: THIAMINE 100 MG TAB PO SCH ×2 (07:04→17:41)
[2021-03-27] MEDS: traMADol 50 MG TAB PO PRN ×3 (07:06→22:14)
[2021-03-27] MEDS: SYMBICORT 160-4.5 MCG INHALER INHALATION SCH ×2 (07:56→19:50)
[2021-03-27 08:51] LABS: Anisocytosis Slight; Basophils % (A) 0 %; Eosinophils # (A) 0.1 k/uL (0-0.7); Eosinophils % (A) 3 %; HCT 36.1 % (34.0-46.0); HGB 11.4 gm/dL (11.4-16.0); Hypochromasia Slight; Lymphocytes % (A) 24 %; MCH 30.3 pg (25.0-35.0); MCHC 31.5 g/dL (31.0-37.0); MCV 96.3 fL (80.0-100.0); Macrocytosis Slight; Mean Platelet Volume 7.5; Monocytes # (A) 0.2 k/uL (0-1.0); Monocytes % (A) 5 %; Neutrophils # (A) 2.9 k/uL (1.3-7.7); Neutrophils % (A) 67 %; Platelet Count 216 k/uL (150-450); RBC 3.75 m/uL (3.80-5.40); RDW 16.8 % (11.5-15.5); WBC 4.3 k/uL (3.8-10.6)
[2021-03-27] MEDS ORDERED: MULTIVITAMINS, THERA 1 EACH TAB PO SCH (09:00)
[2021-03-27] MEDS ORDERED: VITAMIN B12 PO SCH (09:00)
[2021-03-27 09:10] LABS: African American GFR (CKD) >90 (>60 ml/min/1.73 sqM); Anion Gap 6 mmol/L; Blood Urea Nitrogen 10 mg/dL (7-17); Calcium 8.7 mg/dL (8.4-10.2); Carbon Dioxide 21 mmol/L (22-30); Chloride 108 mmol/L (98-107); Glucose 118 mg/dL (74-99); Non-African American GFR(CKD) >90 (>60 ml/min/1.73 sqM); Potassium 3.9 mmol/L (3.5-5.1); Sodium 135 mmol/L (137-145)
[2021-03-27] MEDS: NICOTINE 21MG/24HR PATCH TRANSDERM SCH (10:23)
[2021-03-27] MEDS: ASPIRIN 325 MG TAB PO SCH (10:24)
[2021-03-27] MEDS: METOPROLOL TARTRATE 25 MG TAB PO SCH (10:24)
[2021-03-27] MEDS: PANTOPRAZOLE 40 MG/10 ML VIAL IVP SCH (10:24)
[2021-03-27] MEDS: IBUPROFEN 800 MG TAB PO SCH ×2 (10:24→20:24)
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
--- NOTE | 2021-03-27 13:56 | XR ---
EXAMINATION TYPE: XR chest 2V DATE OF EXAM: 03/27/2021 COMPARISON: 02/20/2021 TECHNIQUE: PA and lateral views submitted. HISTORY: Dysrhythmia FINDINGS: The lungs are clear and there is no pneumothorax, pleural effusion, or focal pneumonia. Hypertrophic and degenerative change of the spine. IMPRESSION: 1. No acute process.
--- NOTE | 2021-03-27 14:01 | PN ---
PROGRESS NOTE 45 -year-old white female came in with alcohol intoxication due to severe family and social issues. She is homeless. She is depressed. Awaiting for psychiatry to see her. Wait for Cardiology to see for SVT and alcohol. She came in and received adenosine in the ER for long-term management and workup of this. Cardiovascular S1, S2. Lungs clear. GI soft. Extremities show mild tremor. ASSESSMENT: 1. Supraventricular tachycardia alcohol withdrawal. 2. Depression. 3. Chronic arthritis in the wrist. 4. Cervical disc disease. 5. Prognosis guarded. Await for a psych consult for depression medicine and social services specialist for placement. MMODL / IJN: [id number] /
[2021-03-27] MEDS: AZITHROMYCIN 500 MG in SODIUM CHLORIDE 0.9% 250 ML IVPB SCH (14:32)
--- NOTE | 2021-03-27 15:49 | P.CRDCN ---
History of Present Illness History of present illness: HISTORY OF PRESENTING ILLNESS This is a 45-year-old female with a history of alcohol abuse, tobacco abuse, palpitations, SVT, hypertension, anxiety who presents secondary to chest pain and palpitations for the last 3 months. Patient states she has been having fairly constant palpitations which feels like every fourth to fifth beat she will have a extra gripping sensation. This has been fairly constant. It has occurred throughout her hospitalization with telemetry showing normal sinus rhythm, no PVCs, no ectopy. Patient also feels fairly constant chest pressure sensation which is worse with anxiety and improved with anxiolytics. She drinks approximate 6 White Claws per day. She admits that undergoing withdrawals if she does not. She admits this has been going on for a few months however mainly presented secondary to "having a nervous breakdown". She states she is now wit hout a home and has had multiple social issues at home. She was seen back in July and placed on beta lise as well as which she believes was amlodipine and hydrochlorothiazide however states this was too much and gave her issues. She was then placed only on hydrochlorothiazide. Patient apparently received 12 mg of adenosine and emergency department however no emergency department note to describe any results of this intervention. Since been admitted to telemetry no arrhythmias noted. Apparently per EMS note patient initially was complaining that she is a drunk needs to be admitted and then was complaining of feeling short of breath and having a panic attack. Unclear if she cannot tell the difference between a panic attack and her SVT. DIAGNOSTICS Initial EKG shows what appears to be short RP tachycardia, SVT at a rate of 160. Repeat EKG shows normal sinus rhythm. REVIEW OF SYSTEMS At the time of my exam: CONSTITUTIONAL: Denies fever or chills. CARDIOVASCULAR: Denies chest pain, shortness of breath, orthopnea, PND or palpitations. RESPIRATORY: Denies cough. GASTROINTESTINAL: Denies abdominal pain, diarrhea, constipation, nausea or vomiting. MUSCULOSKELETAL: Denies myalgias. NEUROLOGIC: Denies numbness, tingling or weakness. ENDOCRINE: Denies fatigue, weight change, polydipsia or polyurina. GENITOURINARY: Denies burning, hematuria or urgency with micturation. HEMATOLOGIC: Denies history of anemia or bleeding. PHYSICAL EXAMINATION Vital signs reviewed. CONSTITUTIONAL: No apparent distress. HEENT: Head is normocephalic. Pupils are equal, round. Sclerae anicteric. Mucous membranes of the mouth are moist. No JVD. No carotid bruit. CHEST EXAMINATION: Lungs are clear to auscultation. No chest wall tenderness is noted on palpation or with deep breathing. HEART EXAMINATION: Regular rate and rhythm. S1, S2 heard. No murmurs, gallops or rub. ABDOMEN: Soft, nontender. Positive bowel sounds. EXTREMITIES: 2+ peripheral pulses, no lower extremity edema and no calf tenderness. NEUROLOGIC EXAMINATION: Patient is awake, alert and oriented x3. ASSESSMENT 1. Atypical chest pain likely related to anxiety 2. SVT status post adenosine 12 mg, no documentation from ER as to results of administration 3. Anxiety 4. Alcohol abuse 5. Tobacco abuse 6. Palpitations occurring on a minute by minute basis with telemetry in the hospital showing normal sinus rhythm 7. Hypertension PLAN Patient with symptoms of anxiety, apparent panic attack. Per EMS note patient was feeling like she needed to be admitted to the hospital for her alcohol abuse however also later she was complaining of feeling short of breath. EKG shows what appears to be a SVT and she received adenosine apparently which broke it however no ER documentation. Previous admission in July normal echocardiogram at that time. Do not suspect chest pain is cardiac in nature as she is continuing to have it constantly and appears likely related to anxiety, improved with anxiolytics. Patient was previously on metoprolol and taken off of this because she did not tolerate it. Do not feel she would be able to take metoprolol 3 times a day. We will change to Cardizem long-acting. Check repeat echo. Check TSH. Past Medical History Past Medical History: Hypertension Additional Past Medical History / Comment(s): Herniated Disk History of Any Multi-Drug Resistant Organisms: None Reported Past Surgical History: Orthopedic Surgery Additional Past Surgical History / Comment(s): Exploratory surgery Past Anesthesia/Blood Transfusion Reactions: No Reported Reaction Past Psychological History: No Psychological Hx Reported Smoking Status: Current every day smoker Past Alcohol Use History: Abuse, Heavy Additional Past Alcohol Use History / Comment(s): just started smoking a pack a day. pt states she also just used marijuana. Pt drinks 12 white claw a day. Pt has been drinking everyday since she was 18 yrs old. Past Drug Use History: Marijuana - Past Family History Father Family Medical History: Osteoarthritis (OA) Medications and Allergies Home Medications Medication Instructions Recorded Confirmed Type Ibuprofen [Motrin] 800 mg PO BID 07/14/20 03/26/21 History traMADol HCl [Ultram] 50 mg PO TID PRN 07/14/20 03/26/21 History Multivitamins, Thera [Multivitamin 1 tab PO DAILY 02/20/21 03/26/21 History (formulary)] Vitamin B-12(Unknown) 1 tab PO DAILY 02/20/21 03/26/21 History Budesonide-Formot 160-4.5 Mcg 2 puff INHALATION RT-BID 30 Days 02/22/21 03/26/21 Rx [Symbicort 160-4.5 Mcg Inhaler] #1 puff Hydrochlorothiazide 12.5 mg PO DAILY 03/26/21 03/26/21 History [hydroCHLOROthiazide] Allergies Allergy/AdvReac Type Severity Reaction Status Date / Time Penicillins Allergy Unknown Verified 02/20/21 21:58 Childhood milk AdvReac Nausea & Verified 02/20/21 21:58 Vomiting & Diarrhea Physical Exam Vitals: Vital Signs Temp Pulse Pulse Resp BP Pulse Ox 03/27/21 12:00 85 18 163/102 100 03/27/21 08:00 98.0 F 93 18 148/96 100 03/27/21 04:35 98.3 F 81 18 148/94 100 03/26/21 23:25 98.8 F 76 17 148/96 99 03/26/21 20:16 100 03/26/21 20:03 96 03/26/21 19:35 98.7 F 84 18 164/102 99 03/26/21 16:00 85 18 172/98 99 Intake and Output 03/27/21 03/27/21 03/27/21 06:59 14:59 22:59 Intake Total 120 Balance 120 Intake: Oral 120 Other: Voiding Method Toilet # Voids 1 0 Results 03/27/21 08:33 03/27/21 08:33 Cardiac Enzymes 03/26/21 Range/Units 14:56 Troponin I <0.012 (0.000-0.034) ng/mL CBC 03/27/21 Range/Units 08:33 WBC 4.3 (3.8-10.6) k/uL RBC 3.75 L (3.80-5.40) m/uL Hgb 11.4 (11.4-16.0) gm/dL Hct 36.1 (34.0-46.0) % Plt Count 216 (150-450) k/uL Comprehensive Metabolic Panel 03/27/21 Range/Units 08:33 Sodium 135 L (137-145) mmol/L Potassium 3.9 (3.5-5.1) mmol/L Chloride 108 H (98-107) mmol/L Carbon Dioxide 21 L (22-30) mmol/L BUN 10 (7-17) mg/dL Creatinine 0.56 (0.52-1.04) mg/dL Glucose 118 H (74-99) mg/dL Calcium 8.7 (8.4-10.2) mg/dL Current Medications Generic Name Dose Route Start Last Admin Trade Name Freq PRN Reason Stop Dose Admin Albuterol/Ipratropium 3 ml 03/26/21 12:42 03/26/21 19:58 Ipratropium-Albuterol 3 Ml Neb INHALATION 3 ml RT-QID PRN Administration Shortness Of Breath Or Wheezing Aspirin 325 mg 03/27/21 09:00 03/27/21 10:24 Aspirin 325 Mg Tab PO 325 mg DAILY MISAEL Administration Budesonide/Formoterol Fumarate 2 puff 03/26/21 20:00 03/27/21 07:56 Symbicort 160-4.5 Mcg Inhaler INHALATION 2 puff RT-BID MISAEL Administration Parenteral Vitamin Supplement 1,011.2 mls @ 100 mls/hr 03/26/21 13:30 03/26/21 17:46 10 ml/ Thiamine HCl 100 mg/ IV 100 mls/hr Folic Acid 1 mg/ Potassium .BY DURATION MISAEL Administration Chloride/Sodium Chloride Potassium Chloride/Sodium Chloride 1,000 mls @ 100 mls/hr 03/26/21 13:30 03/27/21 04:47 Ns-Kcl 20 Meq/L Iv Solution IV 100 mls/hr .BY DURATION MISAEL Administration Azithromycin 500 mg/ Sodium 250 mls @ 250 mls/hr 03/27/21 12:15 03/27/21 14:32 Chloride IVPB 250 mls/hr DAILY MISAEL Administration Ibuprofen 800 mg 03/26/21 21:00 03/27/21 10:24 Ibuprofen 800 Mg Tab PO 800 mg BID MISAEL Administration Lorazepam 1 mg 03/26/21 04:22 03/27/21 11:30 Lorazepam 2 Mg/Ml Inj IV 1 mg Q2HR PRN Administration CIWA 8 or 9 Lorazepam 1 mg 03/26/21 04:22 Lorazepam 2 Mg/Ml Inj IV Q1HR PRN CIWA 10 to 15 Lorazepam 2 mg 03/26/21 04:22 Lorazepam 2 Mg/Ml Inj IV 03/28/21 04:22 Q10M PRN CIWA 16 or higher Methylprednisolone Sodium Succinate 40 mg 03/27/21 16:00 Methylprednisolone Sod Succi 40 Mg/Ml 1 Ml Vial IV Q8HR [facility] Metoprolol Tartrate 25 mg 03/26/21 14:00 03/27/21 10:24 Metoprolol Tartrate 25 Mg Tab PO 25 mg TID [facility] Administration Nicotine 1 patch 03/26/21 13:00 03/27/21 10:23 Nicotine 21mg/24hr Patch TRANSDERM 1 patch DAILY [facility] Administration Nitroglycerin 0.4 mg 03/26/21 04:19 Nitroglycerin Sl Tabs 0.4 Mg Tab SUBLINGUAL Q5M PRN Chest Pain Ondansetron HCl 4 mg 03/26/21 12:44 03/26/21 13:08 Ondansetron 4 Mg/2 Ml Vial IVP 4 mg Q6HR PRN Administration Nausea And Vomiting Pantoprazole Sodium 40 mg 03/26/21 12:45 03/27/21 10:24 Pantoprazole 40 Mg/10 Ml Vial IVP 40 mg DAILY [facility] Administration Thiamine HCl 100 mg 03/26/21 17:30 03/27/21 07:04 Thiamine 100 Mg Tab PO 100 mg BID-W/MEALS [facility] Administration Tramadol HCl 50 mg 03/26/21 20:43 03/27/21 14:46 Tramadol 50 Mg Tab PO 50 mg TID PRN Administration Pain Intake and Output 03/27/21 03/27/21 03/27/21 06:59 14:59 22:59 Intake Total 120 Balance 120 Intake: Oral 120 Other: Voiding Method Toilet # Voids 1 0 03/27/21 08:33 03/27/21 08:33
[2021-03-27 17:27] LABS: T4, Free (Free Thyroxine) 0.92 ng/dL (0.78-2.19)
[2021-03-27] MEDS: methylPREDNISolone SOD SUCCI 40 MG/ML 1 ML VIAL IV SCH ×2 (17:41→23:19)
[2021-03-27] MEDS: DILTIAZEM CD 180 MG CAP.ER.24H PO SCH (17:41)
--- NOTE | 2021-03-27 22:54 | P.CNPUL ---
History of Present Illness Consult date: 03/27/21 Reason for consult: dyspnea Chief complaint: Patient has been hospitalized for intermittent palpitation, along with shor History of present illness: This is a 45-year-old female with long-standing history of smoking and nicotine use also has a history of on-call consumption patient came into the hospital with ongoing chest pain and shortness of breath seen and primary care office advised to be admitted into the hospital, review of data revealed that patient has a chronic long-standing history of alcohol as well as hypertension hypertensive cardiovascular disease, she stopped smoking just before hospitalization, with palpitation she is has been feeling short of breath as well, her admitting EKG significant for narrow complex tachycardia with a heart rate of 160, chest x-ray is unremarkable, patient has ongoing snoring with poor quality of sleep has not been formally evaluated for sleep disorder breathing and sleep apnea Review of Systems All systems: negative Past Medical History Past Medical History: Hypertension Additional Past Medical History / Comment(s): Herniated Disk History of Any Multi-Drug Resistant Organisms: None Reported Past Surgical History: Orthopedic Surgery Additional Past Surgical History / Comment(s): Exploratory surgery Past Anesthesia/Blood Transfusion Reactions: No Reported Reaction Past Psychological History: No Psychological Hx Reported Smoking Status: Current every day smoker Past Alcohol Use History: Abuse, Heavy Additional Past Alcohol Use History / Comment(s): just started smoking a pack a day. pt states she also just used marijuana. Pt drinks 12 white claw a day. Pt has been drinking everyday since she was 18 yrs old. Past Drug Use History: Marijuana - Past Family History Father Family Medical History: Osteoarthritis (OA) Medications and Allergies Home Medications Medication Instructions Recorded Confirmed Type Ibuprofen [Motrin] 800 mg PO BID 07/14/20 03/26/21 History traMADol HCl [Ultram] 50 mg PO TID PRN 07/14/20 03/26/21 History Multivitamins, Thera [Multivitamin 1 tab PO DAILY 02/20/21 03/26/21 History (formulary)] Vitamin B-12(Unknown) 1 tab PO DAILY 02/20/21 03/26/21 History Budesonide-Formot 160-4.5 Mcg 2 puff INHALATION RT-BID 30 Days 02/22/21 03/26/21 Rx [Symbicort 160-4.5 Mcg Inhaler] #1 puff Hydrochlorothiazide 12.5 mg PO DAILY 03/26/21 03/26/21 History [hydroCHLOROthiazide] Allergies Allergy/AdvReac Type Severity Reaction Status Date / Time Penicillins Allergy Unknown Verified 02/20/21 21:58 Childhood milk AdvReac Nausea & Verified 02/20/21 21:58 Vomiting & Diarrhea Physical Exam Vitals: Vital Signs Temp Pulse Resp BP Pulse Ox 03/27/21 19:50 98.6 F 89 18 152/97 99 03/27/21 16:00 85 18 163/113 98 03/27/21 12:00 85 18 163/102 100 03/27/21 08:00 98.0 F 93 18 148/96 100 03/27/21 04:35 98.3 F 81 18 148/94 100 03/26/21 23:25 98.8 F 76 17 148/96 99 Intake and Output 03/27/21 03/27/21 03/27/21 06:59 14:59 22:59 Intake Total 200 280 Balance 200 280 Intake: Oral 200 280 Other: Voiding Method Toilet # Voids 1 0 3 - Constitutional General appearance: average body habitus, cooperative, disheveled, morbidly obese - EENT Eyes: PERRLA ENT: hard of hearing Ears: bilateral: normal - Neck Neck: normal ROM Carotids: bilateral: upstroke normal Thyroid: bilateral: normal size - Respiratory Respiratory: bilateral: CTA - Cardiovascular Rhythm: regular Heart sounds: normal: S1, S2 - Gastrointestinal General gastrointestinal: soft - Neurologic Neurologic: CNII-XII intact - Musculoskeletal Musculoskeletal: gait normal, generalized weakness, strength equal bilaterally - Psychiatric Psychiatric: A&O x's 3, appropriate affect, intact judgment & insight Results - Laboratory Findings CBC and BMP: 03/27/21 08:33 03/27/21 08:33 Abnormal lab findings: Abnormal Labs 03/26/21 03/26/21 03/27/21 01:24 01:24 08:33 RBC 3.47 L 3.75 L Hgb 11.0 L Hct 31.9 L RDW 16.2 H 16.8 H Sodium Chloride Carbon Dioxide BUN 6 L Glucose TSH 03/27/21 03/27/21 08:33 15:28 RBC Hgb Hct RDW Sodium 135 L Chloride 108 H Carbon Dioxide 21 L BUN Glucose 118 H TSH 5.120 H - Diagnostic Findings Chest x-ray: report reviewed, image reviewed (Finding as noted above) Assessment and Plan Assessment: Narrow complex tachycardia Intermittent palpitation Likely COPD not in exacerbation Baseline obesity with component of sleep disorder breathing and sleep apnea Nicotine and alcohol abuse Hypertension hypertensive cardiovascular disease Plan: Continue to observe closely further workup and evaluation as per cardiovascular services Patient to be evaluated further outpatient setting with a pulmonary function testing as well as sleep study to evaluate for COPD and sleep disorder breathing Patient has been consult about smoking cessation Time with Patient: Greater than 30
[2021-03-28] MEDS: LORazepam 2 MG/ML INJ IV PRN ×2 (03:54→08:53)
[2021-03-28] MEDS: THIAMINE 100 MG TAB PO SCH ×2 (06:51→16:37)
[2021-03-28] MEDS: traMADol 50 MG TAB PO PRN ×3 (06:56→22:36)
[2021-03-28] MEDS: SYMBICORT 160-4.5 MCG INHALER INHALATION SCH ×2 (07:30→21:40)
[2021-03-28 08:04] LABS: Basophils % (A) 0 %; Eosinophils % (A) 0 %; HGB 12.5 gm/dL (11.4-16.0); Lymphocytes # (A) 0.5 k/uL (1.0-4.8); Lymphocytes % (A) 4 %; MCHC 33.9 g/dL (31.0-37.0); MCV 94.5 fL (80.0-100.0); Mean Platelet Volume 7.8; Monocytes # (A) 0.1 k/uL (0-1.0); Monocytes % (A) 1 %; Neutrophils # (A) 11.4 k/uL (1.3-7.7); Neutrophils % (A) 94 %; Platelet Count 246 k/uL (150-450); RBC 3.92 m/uL (3.80-5.40)
[2021-03-28 08:18] LABS: ALT 19 U/L (4-34); AST 28 U/L (14-36); African American GFR (CKD) >90 (>60 ml/min/1.73 sqM); Albumin 4.2 g/dL (3.5-5.0); Alkaline Phosphatase 91 U/L (38-126); Anion Gap 8 mmol/L; Blood Urea Nitrogen 13 mg/dL (7-17); Calcium 9.6 mg/dL (8.4-10.2); Carbon Dioxide 19 mmol/L (22-30); Chloride 108 mmol/L (98-107); Glucose 151 mg/dL (74-99); Non-African American GFR(CKD) >90 (>60 ml/min/1.73 sqM); Sodium 135 mmol/L (137-145); Total Bilirubin 0.5 mg/dL (0.2-1.3); Total Protein 7.1 g/dL (6.3-8.2)
[2021-03-28 08:25] LABS: Potassium 4.7 mmol/L (3.5-5.1)
[2021-03-28] MEDS: NICOTINE 21MG/24HR PATCH TRANSDERM SCH (08:53)
[2021-03-28] MEDS: IBUPROFEN 800 MG TAB PO SCH ×2 (08:53→21:40)
[2021-03-28] MEDS: PANTOPRAZOLE 40 MG/10 ML VIAL IVP SCH (08:54)
[2021-03-28] MEDS: methylPREDNISolone SOD SUCCI 40 MG/ML 1 ML VIAL IV SCH ×2 (08:54→16:37)
[2021-03-28] MEDS: AZITHROMYCIN 500 MG in SODIUM CHLORIDE 0.9% 250 ML IVPB SCH (08:54)
[2021-03-28] MEDS: DILTIAZEM CD 180 MG CAP.ER.24H PO SCH (08:54)
[2021-03-28] MEDS: ASPIRIN 325 MG TAB PO SCH (08:54)
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
[2021-03-28] MEDS: IPRATROPIUM-ALBUTEROL 3 ML NEB INHALATION PRN (12:42)
[2021-03-28] MEDS: diazePAM 2 MG TAB PO SCH ×3 (12:48→21:39)
[2021-03-28] MEDS: guaiFENesin 600 MG TABLET.ER PO SCH ×4 (12:49→21:40)
[2021-03-28] MEDS: ENOXAPARIN 40 MG/0.4 ML SYRINGE SQ SCH (12:49)
--- NOTE | 2021-03-28 14:47 | P.PN ---
Subjective Progress Note Date: 03/28/21 Principal diagnosis: Narrow complex tachycardia Intermittent palpitation Likely COPD not in exacerbation Baseline obesity with component of sleep disorder breathing and sleep apnea Nicotine and alcohol abuse Hypertension hypertensive cardiovascular disease 03/28/2021, patient seen eval reexamined during the rounds respiratory status remains stable, patient however has been getting bronchodilators, intermittent palpitation is present, patient has been eval or by psychiatric, denies any cough fever chest pain, This is a 45-year-old female with long-standing history of smoking and nicotine use also has a history of on-call consumption patient came into the hospital wi th ongoing chest pain and shortness of breath seen and primary care office advised to be admitted into the hospital, review of data revealed that patient has a chronic long-standing history of alcohol as well as hypertension hypertensive cardiovascular disease, she stopped smoking just before hospit alization, with palpitation she is has been feeling short of breath as well, her admitting EKG significant for narrow complex tachycardia with a heart rate of 160, chest x-ray is unremarkable, patient has ongoing snoring with poor quality of sleep has not been formally evaluated for sleep disorder breathing and sleep apnea Objective - Vital Signs Vital signs: Vital Signs Temp 98.3 F 03/28/21 08:00 Pulse 82 03/28/21 12:52 Resp 18 03/28/21 12:00 BP 125/88 03/28/21 12:00 Pulse Ox 99 03/28/21 12:00 Intake & Output 03/27/21 03/28/21 03/28/21 18:59 06:59 18:59 Intake Total 480 240 Balance 480 240 Weight 91.4 kg Intake: Oral 480 240 Other: Voiding Method Toilet # Voids 3 2 3 - Exam - Constitutional General appearance: average body habitus, cooperative, disheveled, morbidly obese - EENT Eyes: PERRLA ENT: hard of hearing Ears: bilateral: normal - Neck Neck: normal ROM Carotids: bilateral: upstroke normal Thyroid: bilateral: normal size - Respiratory Respiratory: bilateral: CTA - Cardiovascular Rhythm: regular Heart sounds: normal: S1, S2 - Gastrointestinal General gastrointestinal: soft - Neurologic Neurologic: CNII-XII intact - Musculoskeletal Musculoskeletal: gait normal, generalized weakness, strength equal bilaterally - Psychiatric Psychiatric: A&O x's 3, appropriate affect, intact judgment & insight - Labs CBC & Chem 7: 03/28/21 06:49 03/28/21 06:49 Labs: Abnormal Lab Results - Last 24 Hours (Table) 03/27/21 03/28/21 03/28/21 Range/Units 15:28 06:49 06:49 WBC 12.0 H (3.8-10.6) k/uL RDW 16.0 H (11.5-15.5) % Neutrophils # 11.4 H (1.3-7.7) k/uL Lymphocytes # 0.5 L (1.0-4.8) k/uL Sodium 135 L (137-145) mmol/L Chloride 108 H (98-107) mmol/L Carbon Dioxide 19 L (22-30) mmol/L Glucose 151 H (74-99) mg/dL TSH 5.120 H (0.465-4.680) mIU/L Assessment and Plan Assessment: Narrow complex tachycardia Intermittent palpitation Likely COPD not in exacerbation Baseline obesity with component of sleep disorder breathing and sleep apnea Nicotine and alcohol abuse Hypertension hypertensive cardiovascular disease Plan: Continue to observe closely further workup and evaluation as per cardiovascular services Psychological evaluation in progress Patient to be evaluated further outpatient setting with a pulmonary function testing as well as sleep study to evaluate for COPD and sleep disorder breathing Patient has been consult about smoking cessation Time with Patient: Greater than 30
--- NOTE | 2021-03-28 16:06 | P.PN ---
Subjective HISTORY OF PRESENTING ILLNESS This is a 45-year-old female with a history of alcohol abuse, tobacco abuse, palpitations, SVT, hypertension, anxiety who presents secondary to chest pain and palpitations for the last 3 months. Patient states she has been having fairly constant palpitations which feels like every fourth to fifth beat she will have a extra gripping sensation. This has been fairly constant. It has occurred throughout her hospitalization with telemetry showing normal sinus rhythm, no PVCs, no ectopy. Patient also feels fairly constant chest pressure sensation which is worse with anxiety and improved with anxiolytics. She drinks approximate 6 White Claws per day. She admits that undergoing withdrawals if she does not. She admits this has been going on for a few months however mainly presented secondary to "having a nervous breakdown". She states she is now without a home and has had multiple social issues at home. She was seen back in July and placed on beta lise as well as which she believes was amlodipin e and hydrochlorothiazide however states this was too much and gave her issues. She was then placed only on hydrochlorothiazide. Patient apparently received 12 mg of adenosine and emergency department however no emergency department note to describe any results of this intervention. Since been admitted to telemetry no arrhythmias noted. Apparently per EMS note patient initially was complaining that she is a drunk needs to be admitted and then was complaining of feeling short of breath and having a panic attack. Unclear if she cannot tell the difference between a panic attack and her SVT. DIAGNOSTICS Initial EKG shows what appears to be short RP tachycardia, SVT at a rate of 160. Repeat EKG shows normal sinus rhythm. 03/28 Patient seen and examined. Patient missed the continued feelings of heart beating hard however no further episodes of SVT, anxiety that brought her in. She denies any chest pain or pressure. No significant withdrawal symptoms at this time. REVIEW OF SYSTEMS At the time of my exam: CONSTITUTIONAL: Denies fever or chills. CARDIOVASCULAR: Denies chest pain, shortness of breath, orthopnea, PND or palpitations. RESPIRATORY: Denies cough. GASTROINTESTINAL: Denies abdominal pain, diarrhea, constipation, nausea or vomiting. MUSCULOSKELETAL: Denies myalgias. NEUROLOGIC: Denies numbness, tingling or weakness. ENDOCRINE: Denies fatigue, weight change, polydipsia or polyurina. GENITOURINARY: Denies burning, hematuria or urgency with micturation. HEMATOLOGIC: Denies history of anemia or bleeding. PHYSICAL EXAMINATION Vital signs reviewed. CONSTITUTIONAL: No apparent distress. HEENT: Head is normocephalic. Pupils are equal, round. Sclerae anicteric. Mucous membranes of the mouth are moist. No JVD. No carotid bruit. CHEST EXAMINATION: Lungs are clear to auscultation. No chest wall tenderness is noted on palpation or with deep breathing. HEART EXAMINATION: Regular rate and rhythm. S1, S2 heard. No murmurs, gallops or rub. ABDOMEN: Soft, nontender. Positive bowel sounds. EXTREMITIES: 2+ peripheral pulses, no lower extremity edema and no calf te nderness. NEUROLOGIC EXAMINATION: Patient is awake, alert and oriented x3. ASSESSMENT 1. Atypical chest pain likely related to anxiety 2. SVT status post adenosine 12 mg, no documentation from ER as to results of administration. Unclear if most of her anxiety attacks are linked to SVT episodes 3. Anxiety 4. Alcohol abuse 5. Tobacco abuse 6. Palpitations occurring on a minute by minute basis with telemetry in the hospital showing normal sinus rhythm 7. Hypertension PLAN Check 2-D echo tomorrow If unrevealing, would recommend continued medical therapy with diltiazem with outpatient follow-up with electrophysiology for possible SVT ablation. Unclear if patient's anxiety attacks come about because of SVT episodes although she clearly has underlying anxiety as well. Discussed tobacco and alcohol cessation. Objective - Vital Signs Vital signs: Vital Signs Temp 98.3 F 03/28/21 08:00 Pulse 82 03/28/21 12:52 Resp 18 03/28/21 12:00 BP 125/88 03/28/21 12:00 Pulse Ox 99 03/28/21 12:00 Intake & Output 03/27/21 03/28/21 03/28/21 18:59 06:59 18:59 Intake Total 480 240 Balance 480 240 Weight 91.4 kg Intake: Oral 480 240 Other: Voiding Method Toilet # Voids 3 2 3 - Labs CBC & Chem 7: 03/28/21 06:49 03/28/21 06:49 Labs: Abnormal Lab Results - Last 24 Hours (Table) 03/27/21 03/28/21 03/28/21 Range/Units 15:28 06:49 06:49 WBC 12.0 H (3.8-10.6) k/uL RDW 16.0 H (11.5-15.5) % Neutrophils # 11.4 H (1.3-7.7) k/uL Lymphocytes # 0.5 L (1.0-4.8) k/uL Sodium 135 L (137-145) mmol/L Chloride 108 H (98-107) mmol/L Carbon Dioxide 19 L (22-30) mmol/L Glucose 151 H (74-99) mg/dL TSH 5.120 H (0.465-4.680) mIU/L
--- NOTE | 2021-03-28 19:53 | P.PN ---
Progress Note - Text Progress Note Date: 03/28/21 Presenting complaint: Alcohol withdrawal Hospital course: This patient long-standing alcohol drinker presented with alcohol withdrawal after having a major mental breakdown with the family. She was asked to leave the house. She is put on the CIWA scale. Today: Had some breakfast. Anxious. Has some tremors. No hallucinations. Review of systems: Was done for constitutional, cardiovascular, GI, pulmonary. relevant finding as above Active Medications Albuterol/Ipratropium (Ipratropium-Albuterol 3 Ml Neb) 3 ml INHALATION RT-QID PRN PRN Reason: Shortness Of Breath Or Wheezing Last Admin: 03/28/21 12:42 Dose: 3 ml Documented by: Budesonide/Formoterol Fumarate (Symbicort 160-4.5 Mcg Inhaler) 2 puff INHALATION RT-BID [facility] Last Admin: 03/28/21 07:30 Dose: Not Given Documented by: Diazepam (Diazepam 2 Mg Tab) 2 mg PO TID [facility] Last Admin: 03/28/21 16:37 Dose: 2 mg Documented by: Diltiazem HCl (Diltiazem Cd 180 Mg Cap.Er.24h) 180 mg PO DAILY [facility] Last Admin: 03/28/21 08:54 Dose: 180 mg Documented by: Enoxaparin Sodium (Enoxaparin 40 Mg/0.4 Ml Syringe) 40 mg SQ DAILY [facility] Last Admin: 03/28/21 12:49 Dose: 40 mg Documented by: Famotidine (Famotidine 20 Mg Tab) 20 mg PO BID [facility] Guaifenesin (Guaifenesin 600 Mg Tablet.Er) 600 mg PO QID [facility] Last Admin: 03/28/21 16:37 Dose: 600 mg Documented by: Azithromycin 500 mg/ Sodium (Chloride) 250 mls @ 250 mls/hr IVPB DAILY [facility] Last Admin: 03/28/21 08:54 Dose: 250 mls/hr Documented by: Ibuprofen (Ibuprofen 800 Mg Tab) 800 mg PO BID [facility] Last Admin: 03/28/21 08:53 Dose: 800 mg Documented by: Lorazepam (Lorazepam 2 Mg/Ml Inj) 1 mg IV Q2HR PRN PRN Reason: CIWA 8 or 9 Last Admin: 03/28/21 08:53 Dose: 1 mg Documented by: Lorazepam (Lorazepam 2 Mg/Ml Inj) 1 mg IV Q1HR PRN PRN Reason: CIWA 10 to 15 Methylprednisolone Sodium Succinate (Methylprednisolone Sod Succi 40 Mg/Ml 1 Ml Vial) 40 mg IV Q8HR [facility] Last Admin: 03/28/21 16:37 Dose: 40 mg Documented by: Nicotine (Nicotine 21mg/24hr Patch) 1 patch TRANSDERM DAILY [facility] Last Admin: 03/28/21 08:53 Dose: 1 patch Documented by: Nitroglycerin (Nitroglycerin Sl Tabs 0.4 Mg Tab) 0.4 mg SUBLINGUAL Q5M PRN PRN Reason: Chest Pain Ondansetron HCl (Ondansetron 4 Mg/2 Ml Vial) 4 mg IVP Q6HR PRN PRN Reason: Nausea And Vomiting Last Admin: 03/26/21 13:08 Dose: 4 mg Documented by: Sertraline HCl (Sertraline 100 Mg Tab) 100 mg PO DAILY [facility] Thiamine HCl (Thiamine 100 Mg Tab) 100 mg PO BID-W/MEALS [facility] Last Admin: 03/28/21 16:37 Dose: 100 mg Documented by: Tramadol HCl (Tramadol 50 Mg Tab) 50 mg PO TID PRN PRN Reason: Pain Last Admin: 03/28/21 16:38 Dose: 50 mg Documented by: Trazodone HCl (Trazodone Hcl 50 Mg Tab) 50 mg PO HS [facility] INVESTIGATIONS, reviewed in the clinical context: WBC 12 hemoglobin 12.5 platelets 246 potassium 4.7 creatinine 0.5 for Assessment and plan: -Acute alcohol withdrawal syndrome Patient on CIWA scale. Add Valium 2 mg 3 times a day scheduled. This can be slowly tapered down. -Chronic alcohol dependence Thiamine added. -Chronic nicotine dependence Nicotine patch -COPD in a current smoker DC Solu-Medrol. Change to by mouth prednisone. On DuoNeb and Symbicort. -Obesity BMI 32.5 Weight loss measures. And follow with PCP -Essential hypertension Cardizem CD -SVT now back in sinus rhythm Status post adenosine. -Panic disorder, major depressive disorder, PTSD Started on Zoloft and trazodone by psychiatry. Care was discussed with the patient. Started on Valium. This can be cut back tomorrow. DC IV Solu-Medrol. Change oral prednisone. Encourage activity.
[2021-03-28] MEDS: predniSONE 20 MG TAB PO SCH (21:39)
[2021-03-28] MEDS: FAMOTIDINE 20 MG TAB PO SCH (21:40)
[2021-03-28] MEDS: traZODone HCL 50 MG TAB PO SCH (21:40)
[2021-03-29] MEDS: THIAMINE 100 MG TAB PO SCH ×2 (06:47→17:12)
[2021-03-29] MEDS: IBUPROFEN 800 MG TAB PO SCH ×2 (08:11→20:00)
[2021-03-29] MEDS: guaiFENesin 600 MG TABLET.ER PO SCH ×4 (08:11→21:24)
[2021-03-29] MEDS: SERTRALINE 100 MG TAB PO SCH (08:11)
[2021-03-29] MEDS: diazePAM 2 MG TAB PO SCH ×3 (08:11→20:00)
[2021-03-29] MEDS: DILTIAZEM CD 180 MG CAP.ER.24H PO SCH (08:11)
[2021-03-29] MEDS: AZITHROMYCIN 500 MG in SODIUM CHLORIDE 0.9% 250 ML IVPB SCH (08:12)
[2021-03-29] MEDS: ENOXAPARIN 40 MG/0.4 ML SYRINGE SQ SCH (08:12)
[2021-03-29] MEDS: predniSONE 20 MG TAB PO SCH (08:12)
[2021-03-29] MEDS: FAMOTIDINE 20 MG TAB PO SCH ×2 (08:12→20:00)
[2021-03-29] MEDS: NICOTINE 21MG/24HR PATCH TRANSDERM SCH (08:14)
[2021-03-29] MEDS: traMADol 50 MG TAB PO PRN ×3 (08:18→21:23)
[2021-03-29] MEDS: SYMBICORT 160-4.5 MCG INHALER INHALATION SCH ×2 (08:53→21:13)
--- NOTE | 2021-03-29 11:28 | P.PN ---
Subjective Progress Note Date: 03/29/21 Principal diagnosis: Narrow complex tachycardia Intermittent palpitation Likely COPD not in exacerbation Baseline obesity with component of sleep disorder breathing and sleep apnea Nicotine and alcohol abuse Hypertension hypertensive cardiovascular disease 03/29/2021, patient seen eval examined during the rounds labs reviewed medications reviewed care plan discussed, respiratory status remains stable, denies any chest pain, intermittent shortness of breath and palpitation are present, patient IV steroids have been switched to oral, remains on bronchodilator cardiovascular services also following agree with discharge planning and follow-up in outpatient basis, we'll recommend quickly taper and DC prednisone in 5 days 03/28/2021, patient seen eval reexamined during the rounds respiratory status remains stable, patient however has been getting bronchodilators, intermittent palpitation is present, patient has been eval or by psychiatric, denies any cough fever chest pain, This is a 45-year-old female with long-standing history of smoking and nicotine use also has a history of on-call consumption patient came into the hospital with ongoing chest pain and shortness of breath seen and primary care office advised to be admitted into the hospital, review of data revealed that patient has a chronic long-standing history of alcohol as well as hypertension hypert ensive cardiovascular disease, she stopped smoking just before hospitalization, with palpitation she is has been feeling short of breath as well, her admitting EKG significant for narrow complex tachycardia with a heart rate of 160, chest x-ray is unremarkable, patient has ongoing snoring with poor quality of sleep has not been formally evaluated for sleep disorder breathing and sleep apnea Objective - Vital Signs Vital signs: Vital Signs Temp 98.2 F 03/29/21 08:00 Pulse 89 03/29/21 08:00 Resp 18 03/29/21 08:00 BP 146/83 03/29/21 08:00 Pulse Ox 99 03/29/21 08:00 Intake & Output 03/28/21 03/29/21 03/29/21 18:59 06:59 18:59 Intake Total 360 Balance 360 Weight 92.3 kg Intake: Oral 360 Other: Voiding Method Toilet # Voids 3 1 - Exam - Constitutional General appearance: average body habitus, cooperative, disheveled, morbidly obese - EENT Eyes: PERRLA ENT: hard of hearing Ears: bilateral: normal - Neck Neck: normal ROM Carotids: bilateral: upstroke normal Thyroid: bilateral: normal size - Respiratory Respiratory: bilateral: CTA - Cardiovascular Rhythm: regular Heart sounds: normal: S1, S2 - Gastrointestinal General gastrointestinal: soft - Neurologic Neurologic: CNII-XII intact - Musculoskeletal Musculoskeletal: gait normal, generalized weakness, strength equal bilaterally - Psychiatric Psychiatric: A&O x's 3, appropriate affect, intact judgment & insight - Labs CBC & Chem 7: 03/28/21 06:49 03/28/21 06:49 Assessment and Plan Assessment: Narrow complex tachycardia Intermittent palpitation Likely COPD with acute exacerbation Baseline obesity with component of sleep disorder breathing and sleep apnea Nicotine and alcohol abuse Hypertension hypertensive cardiovascular disease Plan: Continue to observe closely further workup and evaluation as per cardiovascular services Psychological evaluation in progress Patient to be evaluated further outpatient setting with a pulmonary function testing as well as sleep study to evaluate for COPD and sleep disorder breathing Patient has been consult about smoking cessation Taper and DC prednisone Time with Patient: Greater than 30
--- NOTE | 2021-03-29 12:36 | ECHOF ---
Referral Reason:re: SVT MEASUREMENTS -------- HEIGHT: 167.6 cm WEIGHT: 92.1 kg BP: 164/75 IVSd: 1.4 cm (0.6 - 1.1) LVIDd: 5.1 cm (3.9 - 5.3) LVPWd: 1.2 cm (0.6 - 1.1) IVSs: 1.8 cm LVIDs: 3.2 cm LVPWs: 1.6 cm LAESV Index (A-L): 28.73 ml/m Ao Diam: 3.6 cm (2.0 - 3.7) AV Cusp: 1.4 cm (1.5 - 2.6) LA Diam: 3.6 cm (2.7 - 3.8) MV EXCURSION: 21.171 mm (> 18.000) MV EF SLOPE: 96 mm/s (70 - 150) EPSS: 0.3 cm MV E Smooth: 0.73 m/s MV DecT: 238 ms MV A Smooth: 0.90 m/s MV E/A Ratio: 0.81 AR PHT: 1154 ms RAP: 5.00 mmHg RVSP: 11.68 mmHg FINDINGS -------- This was a technically good study. The left ventricular size is normal. There is mild concentric left ventricular hypertrophy. Overa ll left ventricular systolic function is normal with, an EF between 55 - 60 %. The diastolic fillin g pattern is normal for the age of the patient 9.52. The right ventricle is normal in size. The left atrial size is normal. Normal LA size by volume 22+/-6 ml/m2. The right atrial size is normal. Aortic valve is trileaflet and is mildly thickened. Trace amount of aortic regurgitation. The mitral valve is normal. The mitral valve leaflets are mildly thickened. Mild mitral regurgita tion is present. Cannot rule out vegetation. The tricuspid valve appears structurally normal. Mild tricuspid regurgitation present. Right vent ricular systolic pressure is normal at < 35 mmHg. There is no pulmonic regurgitation present. The aortic root size is normal. Normal inferior vena cava with normal inspiratory collapse consistent with estimated right atrial pre ssure of 5 mmHg. There is no pericardial effusion. CONCLUSIONS -------- 1. The left ventricular size is normal. 2. There is mild concentric left ventricular hypertrophy. 3. Overall left ventricular systolic function is normal with, an EF between 55 - 60 %. 4. The diastolic filling pattern is normal for the age of the patient 9.52 5. Aortic valve is trileaflet and is mildly thickened. 6. Trace amount of aortic regurgitation. 7. The mitral valve leaflets are mildly thickened. 8. Mild mitral regurgitation is present. 9. Cannot rule out vegetation. 10. Mild tricuspid regurgitation present. 11. There is no pericardial effusion. MEDICAL PATHOLOGY TEACHER: Mandy Gallardo RDCS
--- NOTE | 2021-03-29 12:48 | P.PN ---
Subjective This is a 45-year-old female with a history of alcohol abuse, tobacco abuse, palpitations, SVT, hypertension, anxiety who presents secondary to chest pain and palpitations for the last 3 months. Patient states she has been having fairly constant palpitations which feels like every fourth to fifth beat she will have a extra gripping sensation. This has been fairly constant. It has occurred throughout her hospitalization with telemetry showing normal sinus rhythm, no PVCs, no ectopy. Patient also feels fairly constant chest pressure sensation which is worse with anxiety and improved with anxiolytics. She drinks approximate 6 [place] Claws per day. She admits that undergoing withdrawals if she does not. She admits this has been going on for a few months however mainly presented secondary to "having a nervous breakdown". She states she is now without a home and has had multiple social issues at home. She was seen back in July and placed on beta lise as well as which she believes was amlodipine and hydrochlorothiazide however states this was too much and gave her issues. She was then placed only on hydrochlorothiazide. Patient apparently received 12 mg of adenosine and emergency department however no emergency depart ment note to describe any results of this intervention. Since been admitted to telemetry no arrhythmias noted. Apparently per EMS note patient initially was complaining that she is a drunk needs to be admitted and then was complaining of feeling short of breath and having a panic attack. Unclear if she cannot tell the difference between a panic attack and her SVT. 03/29/2021 Pt seen and examined resting comfortably laying flat in bed in no acute distress. She denies chest pain, shortness of breath, dizziness or palpitations. She appears shaky. Blood pressure 164/88 heart rate 80 afebrile and maintaining oxygen saturation on room air. Currently maintained on diltiazem 180 mg daily. Echocardiogram obtained reveals preserved LV systolic function with ejection fraction 55-60%, normal diastolic filling pattern, mild mitral regurgitation with possible vegetation on the mitral valve. GENERAL: Well-appearing, well-nourished and in no acute distress. NECK: Supple without JVD or thyromegaly. LUNGS: Breath sounds clear to auscultation bilaterally. Respiration equal and unlabored. No wheezes, rales or rhonchi. HEART: Regular rate and rhythm without murmurs, rubs or gallops. S1 and S2 h eard. EXTREMITIES: Normal range of motion, no edema. No clubbing or cyanosis. Peripheral pulses intact. ASSESSMENT SVT Chest pain, atypical. An acute coronary event has been ruled out. Alcohol abuse Alcohol withdrawal Leukocytosis Hypertension Chronic nicotine dependence Obesity, BMI 32 PLAN Check blood cultures and urine drug screen. Continue cardizem for rate control and resume hydrochlorothiazide for optimal blood pressure control. Further recommendations to follow based on clinical course. Nurse Practitioner note has been reviewed, I agree with a documented findings and plan of care. Patient was seen and examined. Objective - Vital Signs Vital signs: Vital Signs Temp 98.2 F 03/29/21 08:00 Pulse 80 03/29/21 12:00 Resp 16 03/29/21 12:00 BP 164/88 03/29/21 12:00 Pulse Ox 99 03/29/21 12:00 Intake & Output 03/28/21 03/29/21 03/29/21 18:59 06:59 18:59 Intake Total 360 300 Balance 360 300 Weight 92.3 kg Intake: Oral 360 300 Other: Voiding Method Toilet # Voids 3 1 - Labs CBC & Chem 7: 03/28/21 06:49 03/28/21 06:49
[2021-03-29] MEDS: hydroCHLOROthiazide 25 MG TAB PO SCH (13:08)
--- NOTE | 2021-03-29 13:59 | P.PN ---
Progress Note - Text Progress Note Date: 03/29/21 INTERVAL HISTORY: Patient was seen at bedside. Patient reports that she continues to feel emot ional but is not presenting with any suicidal or homicidal ideation, intention, and/or plan. She states that upon discharge, she plans to the unemployment office, check out a new apartment, and look into community resources for outpatient rehabilitation for her alcohol use. The patient is also considering going to an inpatient rehab facility when she ties up all the loose ends that she has currently in the community. The patient reports that she was able to sleep well last night and is tolerating her medications well. The patient is open to trying a trial of acamprosate to address her alcohol use disorder. We discussed other options including naltrexone due to the patient receiving tramadol in the outpatient setting, the patient is not a good candidate at this time. The patient does report marijuana use but denies any illicit drug use. She vehemently denies any IV drug use. MENTAL STATUS EXAM: General Appearance: Patient appears to be stated age is alert, pleasant, and cooperative. Patient appears to have fair hygiene and grooming wearing hospital gown with fair eye contact. Behavior: Patient is calmly lying in bed without any agitated behavior. Normal psychomotor activity. Eye contact is appropriate. Patient is appropriately tearful. Speech: Patient's speech is fluent and nonpressured. Spontaneous, with normal rate, tone, and volume. Mood/Affect: Patient reports their mood is " a little overwhelmed," affect is congruent, but appropriately tearful. Suicidality/Homicidality: Patient denies having any suicidal or homicidal ideation intent or plan. Perceptions: Patient endorses auditory hallucinations but no visual hallucinations. Though content/process: There is no evidence of any delusional thought content and thought process is linear and goal-directed. Memory and concentration: AOX3, grossly intact for the purposes of this session. Can spell "WORLD" backwards Judgment and insight: Fair Vital Signs Temp 98.2 F 03/29/21 08:00 Pulse 80 03/29/21 12:00 Resp 16 03/29/21 12:00 BP 164/88 03/29/21 12:00 Pulse Ox 99 03/29/21 12:00 Intake & Output 03/28/21 03/29/21 03/29/21 18:59 06:59 18:59 Intake Total 360 300 Balance 360 300 Weight 92.3 kg Intake: Oral 360 300 Other: Voiding Method Toilet # Voids 3 1 ASSESSMENT: Panic disorder Major depressive disorder Posttraumatic stress disorder Alcohol dependence Currently, the patient is presenting as appropriately tearful and future oriented. She is currently not presenting with any imminent risk of harm to self or others. The patient appears to be motivated to quit alcohol at this time. She has multiple psychosocial stresses that are exacerbating her psychiatric symptoms. PLAN: -At this time patient DOES NOT meet criteria for inpatient psychiatric admission. -Continue Zoloft 100 mg by mouth daily for depression/anxiety/PTSD. -Continue trazodone 50 mg by mouth at bedtime for insomnia -Start acamprosate 333 mg by mouth 3 times a day for alcohol cessation -Recommend outpatient psychiatric follow-up. The patient should also receive a referral for substance abuse counseling services. -Psychiatry will sign off at this time. Please contact us if there are any questions.
[2021-03-29] MEDS: ACAMPROSATE CALCIUM 333 MG TABLET.DR PO SCH ×2 (17:12→21:24)
[2021-03-29] MEDS: traZODone HCL 50 MG TAB PO SCH (20:00)
--- NOTE | 2021-03-29 23:49 | PN ---
PROGRESS NOTE 45-year-old white female on Azithromycin, , nicotine patch. Came in with alcohol withdrawal. Psychiatry put on some antidepressants. Cardiology is evaluating with some blood cultures for possible endocarditis. She had a CT in the ER. Cardiology saw the patient. The patient continued on diltiazem 180 daily. Echo showed ejection fraction 55-60 percent. Possible vegetation on the mitral valve, so blood cultures will be done. If negative, patient could possibly be discharged home. Will see what Dr. Tuttle says on recommendations. Psychiatry. Continue current treatment. Home monitoring for placement per social organization professor. Cardiovascular S1-S2. Lungs clear. GI soft. Extremities: No edema. ASSESSMENT AND PLAN: 1. Supraventricular tachycardia. 2. Alcohol dependence. 3. Alcohol withdrawal. 4. Depression. 5. Possible mitral valve vegetation. 6. Prognosis guarded. 7. Do blood cultures. 8. Follow up with Dr. Tuttle with consultation. MMODL / IJN: [id number] /
[2021-03-30 00:52] LABS: Urine Alcohol Negative (Negative); Urine Barbiturate Negative (Negative); Urine Cocaine Negative (Negative); Urine Methadone Negative (Negative); Urine Opiates Negative (Negative); Urine Phencyclidine Negative (Negative)
[2021-03-30] MEDS: traMADol 50 MG TAB PO PRN ×3 (06:42→20:28)
[2021-03-30] MEDS: THIAMINE 100 MG TAB PO SCH ×2 (06:42→17:23)
[2021-03-30] MEDS: SYMBICORT 160-4.5 MCG INHALER INHALATION SCH ×2 (08:01→20:36)
[2021-03-30] MEDS: NICOTINE 21MG/24HR PATCH TRANSDERM SCH (08:10)
[2021-03-30] MEDS: diazePAM 2 MG TAB PO SCH ×3 (08:11→20:27)
[2021-03-30] MEDS: AZITHROMYCIN 500 MG TAB PO SCH (08:11)
[2021-03-30] MEDS: DILTIAZEM CD 180 MG CAP.ER.24H PO SCH (08:11)
[2021-03-30] MEDS: predniSONE 20 MG TAB PO SCH (08:11)
[2021-03-30] MEDS: ACAMPROSATE CALCIUM 333 MG TABLET.DR PO SCH ×3 (08:11→20:26)
[2021-03-30] MEDS: SERTRALINE 100 MG TAB PO SCH (08:11)
[2021-03-30] MEDS: guaiFENesin 600 MG TABLET.ER PO SCH ×4 (08:11→20:26)
[2021-03-30] MEDS: IBUPROFEN 800 MG TAB PO SCH ×2 (08:12→20:27)
[2021-03-30] MEDS: FAMOTIDINE 20 MG TAB PO SCH ×2 (08:12→20:26)
[2021-03-30] MEDS: hydroCHLOROthiazide 25 MG TAB PO SCH (08:12)
[2021-03-30] MEDS: ENOXAPARIN 40 MG/0.4 ML SYRINGE SQ SCH (08:13)
--- NOTE | 2021-03-30 11:19 | P.PN ---
Subjective This is a 45-year-old female with a history of alcohol abuse, tobacco abuse, palpitations, SVT, hypertension, anxiety who presents secondary to chest pain and palpitations for the last 3 months. Patient states she has been having fairly constant palpitations which feels like every fourth to fifth beat she will have a extra gripping sensation. This has been fairly constant. It has occurred throughout her hospitalization with telemetry showing normal sinus rhythm, no PVCs, no ectopy. Patient also feels fairly constant chest pressure sensation which is worse with anxiety and improved with anxiolytics. She drinks approximate 6 White Claws per day. She admits that undergoing withdrawals if she does not. She admits this has been going on for a few months however mainly presented secondary to "having a nervous breakdown". She states she is now without a home and has had multiple social issues at home. She was seen back in July and placed on beta lise as well as which she believes was amlodipine and hydrochlorothiazide however states this was too much and gave her issues. She was then placed only on hydrochlorothiazide. Patient apparently received 12 mg of adenosine and emergency department however no emergency depart ment note to describe any results of this intervention. Since been admitted to telemetry no arrhythmias noted. Apparently per EMS note patient initially was complaining that she is a drunk needs to be admitted and then was complaining of feeling short of breath and having a panic attack. Unclear if she cannot tell the difference between a panic attack and her SVT. 03/30/2021 Pt seen and examined resting comfortably laying flat in bed in no acute distress. She denies chest pain, shortness of breath or dizziness. She continues to feel her heart "skipping". Telemetry tracings reviewed extensively. She has maintained sinus rhythm with no PVC's, PAC's or tachycardia. Blood pressure 131/81 heart rate 82 afebrile maintaining oxygen saturation on room air. Blood cultures have been obtained, results pending. Urine drug screen is positive for cannabinoids and benzodiazepines. Denies history of IV drug use. GENERAL: Well-appearing, well-nourished and in no acute distress. NECK: Supple without JVD or thyromegaly. LUNGS: Breath sounds clear to auscultation bilaterally. Respiration equal and unlabored. No wheezes, rales or rhonchi. HEART: Regular rate and rhythm without murmurs, rubs or gallops. S1 and S2 heard. EXTREMITIES: Normal range of motion, no edema. No clubbing or cyanosis. Peripheral pulses intact. ASSESSMENT SVT Chest pain, atypical. An acute coronary event has been ruled out. Alcohol abuse Alcohol withdrawal Leukocytosis Hypertension Chronic nicotine dependence Obesity, BMI 32 PLAN Blood cultures pending. Further recommendations to follow based on blood culture results. Dr. Connors will review echocardiographic images. Nurse Practitioner note has been reviewed, I agree with a documented findings and plan of care. Patient was seen and examined. Objective - Vital Signs Vital signs: Vital Signs Temp 98.4 F 03/30/21 08:00 Pulse 82 03/30/21 08:00 Resp 18 03/30/21 08:00 BP 131/81 03/30/21 08:00 Pulse Ox 98 03/30/21 08:00 Intake & Output 03/29/21 03/30/21 03/30/21 18:59 06:59 18:59 Intake Total 1270 200 836 Output Total 300 Balance 970 200 836 Weight 92.5 kg Intake: Oral 1270 200 836 Output: Urine 300 Other: Voiding Method Toilet Toilet # Voids 1 2 1 - Labs CBC & Chem 7: 03/28/21 06:49 03/28/21 06:49 Labs: Abnormal Lab Results - Last 24 Hours (Table) 03/29/21 Range/Units Unknown U Benzodiazepines Scrn Positive A (Negative) ng/mL U Cannabinoids Screen Positive A (Negative) ng/mL
--- NOTE | 2021-03-30 11:20 | P.PN ---
Subjective Progress Note Date: 03/30/21 Principal diagnosis: Narrow complex tachycardia Intermittent palpitation Likely COPD not in exacerbation Baseline obesity with component of sleep disorder breathing and sleep apnea Nicotine and alcohol abuse Hypertension hypertensive cardiovascular disease 03/30/2021, patient seen eval examined during the rounds labs reviewed medications reviewed, intermittent cough and shortness of breath are present but severity has improved, the sputum is white frothy, patient remains on bronchodilator and oral prednisone tolerating well, patient will require definitive evaluation outpatient basis 03/29/2021, patient seen eval examined during the rounds labs reviewed medications reviewed care plan discussed, respiratory status remains stable, denies any chest pain, intermittent shortness of breath and palpitation are present, patient IV steroids have been switched to oral, remains on bronchodilator cardiovascular services also following agree with discharge planning and follow-up in outpatient basis, we'll recommend quickly taper and DC prednisone in 5 days 03/28/2021, patient seen eval reexamined during the rounds respiratory status remains stable, patient however has been getting bronchodilators, intermittent palpitation is present, patient has been eval or by psychiatric, denies any cough fever chest pain, This is a 45-year-old female with long-standing history of smoking and nicotine use also has a history of on-call consumption patient came into the hospital with ongoing chest pain and shortness of breath seen and primary care office advised to be admitted into the hospital, review of data revealed that patient has a chronic long-standing history of alcohol as well as hypertension hypertensive cardiovascular disease, she stopped smoking just before ho spitalization, with palpitation she is has been feeling short of breath as well, her admitting EKG significant for narrow complex tachycardia with a heart rate of 160, chest x-ray is unremarkable, patient has ongoing snoring with poor quality of sleep has not been formally evaluated for sleep disorder breathing and sleep apnea Objective - Vital Signs Vital signs: Vital Signs Temp 98.4 F 03/30/21 08:00 Pulse 82 03/30/21 08:00 Resp 18 03/30/21 08:00 BP 131/81 03/30/21 08:00 Pulse Ox 98 03/30/21 08:00 Intake & Output 03/29/21 03/30/21 03/30/21 18:59 06:59 18:59 Intake Total 1270 200 836 Output Total 300 Balance 970 200 836 Weight 92.5 kg Intake: Oral 1270 200 836 Output: Urine 300 Other: Voiding Method Toilet Toilet # Voids 1 2 1 - Exam - Constitutional General appearance: average body habitus, cooperative, disheveled, morbidly obese - EENT Eyes: PERRLA ENT: hard of hearing Ears: bilateral: normal - Neck Neck: normal ROM Carotids: bilateral: upstroke normal Thyroid: bilateral: normal size - Respiratory Respiratory: bilateral: CTA - Cardiovascular Rhythm: regular Heart sounds: normal: S1, S2 - Gastrointestinal General gastrointestinal: soft - Neurologic Neurologic: CNII-XII intact - Musculoskeletal Musculoskeletal: gait normal, generalized weakness, strength equal bilaterally - Psychiatric Psychiatric: A&O x's 3, appropriate affect, intact judgment & insight - Labs CBC & Chem 7: 03/28/21 06:49 03/28/21 06:49 Labs: Abnormal Lab Results - Last 24 Hours (Table) 03/29/21 Range/Units Unknown U Benzodiazepines Scrn Positive A (Negative) ng/mL U Cannabinoids Screen Positive A (Negative) ng/mL Assessment and Plan Assessment: Narrow complex tachycardia Intermittent palpitation Likely COPD with acute exacerbation Baseline obesity with component of sleep disorder breathing and sleep apnea Nicotine and alcohol abuse Hypertension hypertensive cardiovascular disease Plan: Continue to observe closely further workup and evaluation as per cardiovascular services Psychological evaluation in progress Patient to be evaluated further outpatient setting with a pulmonary function testing as well as sleep study to evaluate for COPD and sleep disorder breathing Patient has been consult about smoking cessation Taper and DC prednisone
[2021-03-30] MEDS: traZODone HCL 50 MG TAB PO SCH (20:26)
[2021-03-30] MEDS: IPRATROPIUM-ALBUTEROL 3 ML NEB INHALATION PRN (20:36)
--- NOTE | 2021-03-30 22:07 | CONS ---
CONSULTATION DATE OF SERVICE: 03/30/2021 REASON FOR CONSULTATION: Abnormal echo and a question of endocarditis. HISTORY OF PRESENT ILLNESS: The patient is a 45-year-old female with a past medical history significant for alcohol and tobacco abuse, history of anxiety and hypertension who presented to the ER at [facility] 4 days ago for evaluation of palpitations. The patient apparently has been complaining of chest pain with palpitations that has been going off and on for the last 3 ; however, on the day she presented to hospital she did have worsening of her symptoms. The patient denies any fever or any chills. Denies having any URI symptoms. She is still complaining of some chest discomfort, more of a dull aching pain. No sharp pain. With associated palpitations and some shortness of breath. No significant cough or sputum production. No nausea, no vomiting, no abdominal pain or any diarrhea. With these symptoms the patient was evaluated on presentation to the hospital. The patient has been afebrile and no fever has been recorded in the last 4 days. The patient has saturating 96% to 97% on room air. The patient did have a normal white count on presentation to the hospital with no left shift. Creatinine was normal. The patient did have a urine drug screen done yesterday positive for cocaine and benzos. The patient did have an echocardiogram completed with evidence of thickened mitral valve; cannot rule out vegetation. Blood cultures were obtained. Infectious Disease was consulted for further management. REVIEW OF SYSTEMS: Positive points have been mentioned in the HPI. Rest of the systems are negative. PAST MEDICAL HISTORY: Hypertension, anxiety, chronic back pain herniated disc. PAST SURGICAL HISTORY: Orthopedic surgery. SOCIAL HISTORY: Current everyday smoker. Heavy alcohol abuse and marijuana. FAMILY HISTORY: No pertinent findings noticed. ALLERGIES: PENICILLIN. MEDICATIONS: The patient is currently on DuoNeb, Zithromax, Symbicort, Valium, Cardizem, Lovenox, Pepcid, Mucinex, hydrochlorothiazide, Motrin, Ativan, nicotine patch, Nitrostat, Zofran, prednisone, Zoloft, vitamin B1, Ultram and trazodone. PHYSICAL EXAMINATION: Blood pressure is 131/78 with a pulse of 105, temperature 98.7. She is 96% on room air. General description is a middle-aged female lying in bed in no distress. No tachypnea or accessory muscle of respiration use. HEENT: Examination shows no pallor or scleral icterus. Oral mucous membrane is dry. NECK: Trachea is central. No thyromegaly. LUNGS: Unlabored breathing. Clear to auscultation anteriorly. No wheeze or crackle. HEART: S1, S2. Regular rate and rhythm. ABDOMEN: Soft. No tenderness. No guarding or rigidity. EXTREMITIES: No edema of the feet. SKIN EXAMINATION: No rash or mass palpable. Neurologically the patient is awake, alert, oriented x3. Mood and affect normal. LABS: Hemoglobin is 12.4, white count 4.3, BUN of 13, creatinine 0.54. Electrolytes have been normal. Liver enzymes are normal. Urine drug screen positive. DIAGNOSTIC IMPRESSION AND PLAN: Patient admitted to hospital with palpitations in this patient who did have echocardiogram with evidence of mitral valve thickened leaflet and concern for possible endocarditis. Clinically the patient is not behaving as endocarditis in this patient with no fever or elevated white count or any risk factor. Patient does have history of heavy smoking and drinking along with marijuana use. However, the patient categorically denies any IV drug use. PLAN: 1. Blood cultures will be repeated. 2. Will obtain a CRP, Prograf and a sed rate. 3. Patient will benefit from a REEMA for better definition of the mitral wall abnormality seen on the . 4. Will follow clinical condition and investigations to further her adjust medication if needed. Thank you for this consultation. Will follow this patient along with you. MMODL / IJN: [id number] /
--- NOTE | 2021-03-31 02:56 | PN ---
PROGRESS NOTE 45-year-old white female came with SVT, started on Cardizem. She takes that orally. Alcohol withdrawals much better. No nausea, vomiting. She had echo possible mitral valve lesion. They are contemplating a REEMA depending on blood culture results which have been done 2-3 times so far no growth. Cardiovascular S1, S2. Lungs clear. GI soft. Extremities: No tremor. ASSESSMENT AND PLAN: 1. Alcohol dependence. 2. Depression. 3. Supraventricular tachycardia. 4. Alcohol withdrawal. 5. Possible mitral valve stenosis versus lesion. 6. Endocarditis is being ruled out. 7. She will be discharged home if cleared. MMODL / IJN: [id number] /
[2021-03-31] MEDS: traMADol 50 MG TAB PO PRN ×3 (05:27→15:23)
[2021-03-31] MEDS: THIAMINE 100 MG TAB PO SCH ×2 (06:36→15:22)
[2021-03-31 08:51] VITALS: TEMP 98.2
[2021-03-31] MEDS: predniSONE 20 MG TAB PO SCH (08:52)
[2021-03-31] MEDS: diazePAM 2 MG TAB PO SCH ×2 (08:52→15:22)
[2021-03-31] MEDS: guaiFENesin 600 MG TABLET.ER PO SCH ×3 (08:52→17:04)
[2021-03-31] MEDS: SERTRALINE 100 MG TAB PO SCH (08:52)
[2021-03-31] MEDS: IBUPROFEN 800 MG TAB PO SCH (08:52)
[2021-03-31] MEDS: AZITHROMYCIN 500 MG TAB PO SCH (08:52)
[2021-03-31] MEDS: FAMOTIDINE 20 MG TAB PO SCH (08:52)
[2021-03-31] MEDS: hydroCHLOROthiazide 25 MG TAB PO SCH (08:52)
[2021-03-31] MEDS: ACAMPROSATE CALCIUM 333 MG TABLET.DR PO SCH ×2 (08:52→15:22)
[2021-03-31] MEDS: NICOTINE 21MG/24HR PATCH TRANSDERM SCH (08:53)
[2021-03-31] MEDS: ENOXAPARIN 40 MG/0.4 ML SYRINGE SQ SCH (08:53)
[2021-03-31] MEDS: DILTIAZEM CD 180 MG CAP.ER.24H PO SCH (08:53)
--- NOTE | 2021-03-31 10:54 | P.PN ---
Subjective Progress Note Date: 03/31/21 Principal diagnosis: Narrow complex tachycardia Intermittent palpitation Likely COPD not in exacerbation Baseline obesity with component of sleep disorder breathing and sleep apnea Nicotine and alcohol abuse Hypertension hypertensive cardiovascular disease 03/31/2021, patient seen eval examined during the rounds labs reviewed medications reviewed care plan discussed, respiratory status continued to improve less wheezing or shortness of breath present cuff is improved also, patient remains on oral prednisone and antibiotics and breathing treatments, agree with discharge planning however patient will need evaluation outpatient setting for PFT, patient has been updated about her sleep disorder breathing and sleep apnea and emphasize importance of getting the sleep study, patient slept 4-5 hours each night which is very interrupted sleep and usually has a lot of daytime sleepiness 03/30/2021, patient seen eval examined during the rounds labs reviewed medications reviewed, intermittent cough and shortness of breath are present but severity has improved, the sputum is white frothy, patient remains on bronchodilator and oral prednisone tolerating well, patient will require definitive evaluation outpatient basis 03/29/2021, patient seen eval examined during the rounds labs reviewed medications reviewed care plan discussed, respiratory status remains stable, d enies any chest pain, intermittent shortness of breath and palpitation are present, patient IV steroids have been switched to oral, remains on bronchodilator cardiovascular services also following agree with discharge planning and follow-up in outpatient basis, we'll recommend quickly taper and DC prednisone in 5 days 03/28/2021, patient seen eval reexamined during the rounds respiratory status r emains stable, patient however has been getting bronchodilators, intermittent palpitation is present, patient has been eval or by psychiatric, denies any cough fever chest pain, This is a 45-year-old female with long-standing history of smoking and nicotine use also has a history of on-call consumption patient came into the hospital with ongoing chest pain and shortness of breath seen and primary care office advised to be admitted into the hospital, review of data revealed that patient has a chronic long-standing history of alcohol as well as hypertension hypertensive cardiovascular disease, she stopped smoking just before hospitalization, with palpitation she is has been feeling short of breath as well, her admitting EKG significant for narrow complex tachycardia with a heart rate of 160, chest x-ray is unremarkable, patient has ongoing snoring with poor quality of sleep has not been formally evaluated for sleep disorder breathing and sleep apnea Objective - Vital Signs Vital signs: Vital Signs Temp 98.2 F 03/31/21 08:00 Pulse 98 03/31/21 08:00 Resp 18 03/31/21 08:00 BP 132/78 03/31/21 08:00 Pulse Ox 100 03/31/21 08:00 Intake & Output 03/30/21 03/31/21 03/31/21 18:59 06:59 18:59 Intake Total 1076 422 Balance 1076 422 Weight 91.8 kg Intake: Oral 1076 422 Other: Voiding Method Toilet Toilet # Voids 1 3 # Bowel Movements 0 - Exam - Constitutional General appearance: average body habitus, cooperative, disheveled, morbidly obese - EENT Eyes: PERRLA ENT: hard of hearing Ears: bilateral: normal - Neck Neck: normal ROM Carotids: bilateral: upstroke normal Thyroid: bilateral: normal size - Respiratory Respiratory: bilateral: CTA - Cardiovascular Rhythm: regular Heart sounds: normal: S1, S2 - Gastrointestinal General gastrointestinal: soft - Neurologic Neurologic: CNII-XII intact - Musculoskeletal Musculoskeletal: gait normal, generalized weakness, strength equal bilaterally - Psychiatric Psychiatric: A&O x's 3, appropriate affect, intact judgment & insight - Labs CBC & Chem 7: 03/28/21 06:49 03/28/21 06:49 Labs: Microbiology - Last 24 Hours (Table) 03/30/21 07:39 Blood Culture - Preliminary Blood No Growth after 24 hours 03/29/21 12:53 Blood Culture - Preliminary Blood No Growth after 24 hours Assessment and Plan Assessment: Narrow complex tachycardia Intermittent palpitation Likely COPD with acute exacerbation Baseline obesity with component of sleep disorder breathing and sleep apnea Nicotine and alcohol abuse Hypertension hypertensive cardiovascular disease Plan: Continue to observe closely further workup and evaluation as per cardiovascular services Psychological evaluation in progress Patient to be evaluated further outpatient setting with a pulmonary function te sting as well as sleep study to evaluate for COPD and sleep disorder breathing Patient has been counseled about smoking cessation Taper and DC prednisone, and continue MDIs Time with Patient: Greater than 30
[2021-03-31 11:13] VITALS: RESP 16
--- NOTE | 2021-03-31 11:16 | P.PN ---
Subjective This is a 45-year-old female with a history of alcohol abuse, tobacco abuse, palpitations, SVT, hypertension, anxiety who presents secondary to chest pain and palpitations for the last 3 months. Patient states she has been having fairly constant palpitations which feels like every fourth to fifth beat she will have a extra gripping sensation. This has been fairly constant. It has occurred throughout her hospitalization with telemetry showing normal sinus rhythm, no PVCs, no ectopy. Patient also feels fairly constant chest pressure sensation which is worse with anxiety and improved with anxiolytics. She drinks approximate 6 White Claws per day. She admits that undergoing withdrawals if she does not. She admits this has been going on for a few months however mainly presented secondary to "having a nervous breakdown". She states she is now without a home and has had multiple social issues at home. She was seen back in July and placed on beta lise as well as which she believes was amlodipine and hydrochlorothiazide however states this was too much and gave her issues. She was then placed only on hydrochlorothiazide. Patient apparently received 12 mg of adenosine and emergency department however no emergency depart ment note to describe any results of this intervention. Since been admitted to telemetry no arrhythmias noted. Apparently per EMS note patient initially was complaining that she is a drunk needs to be admitted and then was complaining of feeling short of breath and having a panic attack. Unclear if she cannot tell the difference between a panic attack and her SVT. 03/30/2021 Pt seen and examined resting comfortably laying flat in bed in no acute distress. Blood cultures negative for growth at 24 hours. She has no chest pain or shortness of breath. Telemetry tracings reveal ongoing SR, no arrhythmia noted. Blood pressure 132/78 heart rate 98 afebrile maintaining oxygen saturation on room air. Laboratory data reviewed, ESR 14 and CRP 0.5. GENERAL: Well-appearing, well-nourished and in no acute distress. NECK: Supple without JVD or thyromegaly. LUNGS: Breath sounds clear to auscultation bilaterally. Respiration equal and unlabored. No wheezes, rales or rhonchi. HEART: Regular rate and rhythm without murmurs, rubs or gallops. S1 and S2 heard. EXTREMITIES: Normal range of motion, no edema. No clubbing or cyanosis. Peripheral pulses intact. ASSESSMENT SVT Chest pain, atypical. An acute coronary event has been ruled out. Alcohol abuse Alcohol withdrawal Leukocytosis Hypertension Chronic nicotine dependence Obesity, BMI 32 PLAN Clinically she has no symptoms or evidence to suggest endocarditis. With negative blood cultures and no fevers there are no indications for REEMA at this time. Stable for discharge, follow up with Dr. Atkins upon discharge. Nurse Practitioner note has been reviewed, I agree with a documented findings and plan of care. Patient was seen and examined. Objective - Vital Signs Vital signs: Vital Signs Temp 98.2 F 03/31/21 08:00 Pulse 98 03/31/21 08:00 Resp 18 03/31/21 08:00 BP 132/78 03/31/21 08:00 Pulse Ox 100 03/31/21 08:00 Intake & Output 03/30/21 03/31/21 03/31/21 18:59 06:59 18:59 Intake Total 1076 422 Balance 1076 422 Weight 91.8 kg Intake: Oral 1076 422 Other: Voiding Method Toilet Toilet # Voids 1 3 # Bowel Movements 0 - Labs CBC & Chem 7: 03/28/21 06:49 03/28/21 06:49 Labs: Microbiology - Last 24 Hours (Table) 03/30/21 07:39 Blood Culture - Preliminary Blood No Growth after 24 hours 03/29/21 12:53 Blood Culture - Preliminary Blood No Growth after 24 hours
[2021-03-31] MEDS: SYMBICORT 160-4.5 MCG INHALER INHALATION SCH (11:51)
--- NOTE | 2021-03-31 14:06 | PN ---
PROGRESS NOTE DATE OF SERVICE: 03/31/2021 REASON FOR FOLLOWUP: Abnormal echo and a question of endocarditis. INTERVAL HISTORY: The patient is currently afebrile. Patient is feeling much better. She is up in the room walking around on room air. The patient denies having any chest pain, shortness of breath or cough. No nausea, no vomiting. No abdominal pain or diarrhea. PHYSICAL EXAMINATION: Blood pressure 134/84, pulse of 78, temperature 98.2. She is 98% on room air. General description is middle-aged female up in the room in no distress. RESPIRATORY SYSTEM: Unlabored breathing, clear to auscultation anteriorly. HEART: S1, S2. Regular rate and rhythm. ABDOMEN: Soft, no tenderness. LABS: Blood culture has been negative so far. Sed rate of 14. CRP 0.5. Procalcitonin 0.04. DIAGNOSTIC IMPRESSION AND PLAN: Patient with abnormal echo with thickened mitral valve with question of possible endocarditis. Patient is clinically not behaving as endocarditis with no fever, no elevated white count. The patient did have a normal sedimentation rate, CRP, procalcitonin with blood culture negative. Recommend no antibiotic at this point. May benefit from a REEMA to better define abnormality seen on the valve. Continue with supportive care. MMODL / IJN: [id number] /
[2021-03-31 15:21] VITALS: BP 141/94; PULSE 100
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
== END 2021-03-31 18:12 | disposition home or self-care (01) | DRG 309 ==
LOC: EC 00:27 → 3SCARD 04:19
PROVIDERS: ADMIT Family Medicine; ATTEND Family Medicine
PROC: B246ZZ4 Ultrasonography of Right and Left Heart, Transesophageal (ICD-10-PCS; principal; 2021-03-29)
DX: I47.1 Supraventricular tachycardia (principal); F10.239 Alcohol dependence with withdrawal, unspecified; E66.2 Morbid (severe) obesity with alveolar hypoventilation; J45.901 Unspecified asthma with (acute) exacerbation; J44.1 Chronic obstructive pulmonary disease with (acute) exacerbation; F10.229 Alcohol dependence with intoxication, unspecified; Z68.32 Body mass index [BMI] 32.0-32.9, adult; D72.829 Elevated white blood cell count, unspecified; F12.10 Cannabis abuse, uncomplicated; F17.210 Nicotine dependence, cigarettes, uncomplicated; F32.9 Major depressive disorder, single episode, unspecified; F41.0 Panic disorder [episodic paroxysmal anxiety]; F43.10 Post-traumatic stress disorder, unspecified; G89.4 Chronic pain syndrome; I11.9 Hypertensive heart disease without heart failure; M19.039 Primary osteoarthritis, unspecified wrist; K21.9 Gastro-esophageal reflux disease without esophagitis; M50.90 Cervical disc disorder, unspecified, unspecified cervical region; Z59.0 Homelessness; Z79.51 Long term (current) use of inhaled steroids; Z79.899 Other long term (current) drug therapy; Z91.410 Personal history of adult physical and sexual abuse; Z20.822 Contact with and (suspected) exposure to COVID-19; Z81.8 Family history of other mental and behavioral disorders; Z81.1 Family history of alcohol abuse and dependence
CPT/HCPCS: 36415; 71046; 80048; 80053; 80306; 81025; 82075; 83735; 84145; 84439; 84443; 84484; 85025; 85652; 86140; 87040; 87635; 93005; 93306; 94640; 96374; 96375; 99285

== ENCOUNTER 2021-06-04 11:31 | Inpatient (IN) | payer OTHER ==
[2021-06-04] MEDS ORDERED: SODIUM CHLORIDE 0.9% 1,000 ML IV STA (12:04)
[2021-06-04 12:28] LABS: ALT 36 U/L (4-34); AST 84 U/L (14-36); African American GFR (CKD) >90 (>60 ml/min/1.73 sqM); Albumin 4.4 g/dL (3.5-5.0); Alkaline Phosphatase 107 U/L (38-126); Anion Gap 12 mmol/L; Anisocytosis Slight; Basophils % (A) 1 %; Blood Urea Nitrogen 10 mg/dL (7-17); Calcium 8.3 mg/dL (8.4-10.2); Carbon Dioxide 31 mmol/L (22-30); Chloride 96 mmol/L (98-107); Eosinophils % (A) 1 %; Glucose 151 mg/dL (74-99); HCT 34.6 % (34.0-46.0); HGB 11.7 gm/dL (11.4-16.0); Lipase 1082 U/L (23-300); Lymphocytes # (A) 0.7 k/uL (1.0-4.8); Lymphocytes % (A) 11 %; MCH 30.4 pg (25.0-35.0); MCHC 33.9 g/dL (31.0-37.0); MCV 89.5 fL (80.0-100.0); Magnesium 1.8 mg/dL (1.6-2.3); Mean Platelet Volume 7.3; Monocytes # (A) 0.4 k/uL (0-1.0); Monocytes % (A) 6 %; Neutrophils # (A) 4.7 k/uL (1.3-7.7); Neutrophils % (A) 80 %; Non-African American GFR(CKD) >90 (>60 ml/min/1.73 sqM); Platelet Count 110 k/uL (150-450); RBC 3.86 m/uL (3.80-5.40); RDW 17.2 % (11.5-15.5); Sodium 139 mmol/L (137-145); Total Bilirubin 0.3 mg/dL (0.2-1.3); Total Protein 6.7 g/dL (6.3-8.2); WBC 5.9 k/uL (3.8-10.6)
--- NOTE | 2021-06-04 12:40 | ED ---
Alcohol HPI - General Chief Complaint: Alcohol Stated Complaint: ETOH Time Seen by Provider: 06/04/21 11:44 Source: patient, EMS, RN notes reviewed Mode of arrival: EMS Limitations: altered mental status - History of Present Illness Initial Comments: This a 45-year-old female presents emergency Department via EMS with chief complaint of alcohol intoxication. Patient is daily intact gait states that she drinks daily. She has had recent hospitalizations for similar complaints. She states she is homeless has no vertigo is no family. Patient denies any suicidal or homicidal. Patient cannot give any specific complaint other than she states that she is drunk. - Related Data Home Medications Medication Instructions Recorded Confirmed Ibuprofen [Motrin] 800 mg PO BID 07/14/20 03/26/21 traMADol HCl [Ultram] 50 mg PO TID PRN 07/14/20 03/26/21 Multivitamins, Thera [Multivitamin 1 tab PO DAILY 02/20/21 03/26/21 (formulary)] Previous Rx's Medication Instructions Recorded Budesonide-Formot 160-4.5 Mcg 2 puff INHALATION RT-BID 30 Days 02/22/21 [Symbicort 160-4.5 Mcg Inhaler] #1 puff Acamprosate Calcium [Campral] 333 mg PO TID 10 Days #30 tablet.dr 03/31/21 Azithromycin [Zithromax] 500 mg PO DAILY 3 Days #3 tab 03/31/21 Diltiazem Cd [Cardizem CD] 180 mg PO DAILY 30 Days #30 03/31/21 cap.er.24h Nicotine 21Mg/24Hr Patch [Habitrol] 1 patch TRANSDERM DAILY 30 Days 03/31/21 #30 patch Sertraline [Zoloft] 100 mg PO DAILY 30 Days #30 tab 03/31/21 Thiamine [Vitamin B-1] 100 mg PO BID-W/MEALS 10 Days #20 03/31/21 tab hydroCHLOROthiazide [Hydrodiuril] 25 mg PO DAILY 30 Days #30 tab 03/31/21 predniSONE [Deltasone] 20 mg PO DAILY 5 Days #5 tab 03/31/21 traZODone HCL [Desyrel] 50 mg PO HS 30 Days #30 tab 03/31/21 Allergies Allergy/AdvReac Type Severity Reaction Status Date / Time Penicillins Allergy Unknown Verified 06/04/21 11:40 Childhood Review of Systems ROS Statement: Those systems with pertinent positive or pertinent negative responses have been documented in the HPI. ROS Other: All systems not noted in ROS Statement are negative. Past Medical History Past Medical History: Hypertension Additional Past Medical History / Comment(s): Herniated Disk History of Any Multi-Drug Resistant Organisms: None Reported Past Surgical History: Orthopedic Surgery Additional Past Surgical History / Comment(s): Exploratory surgery Past Anesthesia/Blood Transfusion Reactions: No Reported Reaction Past Psychological History: No Psychological Hx Reported Smoking Status: Current every day smoker Past Alcohol Use History: Abuse, Daily, Heavy Past Drug Use History: Marijuana - Past Family History Father Family Medical History: Osteoarthritis (OA) General Exam Limitations: altered mental status General appearance: alert, in no apparent distress Head exam: Present: atraumatic, normocephalic, normal inspection ENT exam: Present: normal exam, normal oropharynx, mucous membranes moist, TM's normal bilaterally Neck exam: Present: normal inspection, full ROM. Absent: tenderness, meningismus, lymphadenopathy Respiratory exam: Present: normal lung sounds bilaterally. Absent: respiratory distress, wheezes, rales, rhonchi, stridor Cardiovascular Exam: Present: regular rate, normal rhythm, normal heart sounds. Absent: systolic murmur, diastolic murmur, rubs, gallop, clicks GI/Abdominal exam: Present: soft, normal bowel sounds. Absent: distended, tenderness, guarding, rebound, rigid Neurological exam: Present: alert Skin exam: Present: warm, dry, intact, normal color. Absent: rash Course Vital Signs 06/04/21 06/04/21 11:37 13:00 Temperature 98.0 F Pulse Rate 99 103 H Respiratory 20 22 Rate Blood Pressure 128/78 132/65 O2 Sat by Pulse 98 99 Oximetry Medical Decision Making - Medical Decision Making 45-year-old presented for alcohol intoxication. Patient has a clot 507) is 1082 with mild hypokalemia. This was replaced patient started on fluid hydration, Ativan protocol. Patient PCP was updated recommended GI consult. - Lab Data Result diagrams: 06/04/21 12:09 06/04/21 12:09 Lab Results 06/04/21 06/04/21 Range/Units 12:09 12:09 WBC 5.9 (3.8-10.6) k/uL RBC 3.86 (3.80-5.40) m/uL Hgb 11.7 (11.4-16.0) gm/dL Hct 34.6 (34.0-46.0) % MCV 89.5 (80.0-100.0) fL MCH 30.4 (25.0-35.0) pg MCHC 33.9 (31.0-37.0) g/dL RDW 17.2 H (11.5-15.5) % Plt Count 110 L (150-450) k/uL MPV 7.3 Neutrophils % 80 % Lymphocytes % 11 % Monocytes % 6 % Eosinophils % 1 % Basophils % 1 % Neutrophils # 4.7 (1.3-7.7) k/uL Lymphocytes # 0.7 L (1.0-4.8) k/uL Monocytes # 0.4 (0-1.0) k/uL Eosinophils # 0.0 (0-0.7) k/uL Basophils # 0.0 (0-0.2) k/uL Anisocytosis Slight Sodium 139 (137-145) mmol/L Potassium 3.0 L (3.5-5.1) mmol/L Chloride 96 L (98-107) mmol/L Carbon Dioxide 31 H (22-30) mmol/L Anion Gap 12 mmol/L BUN 10 (7-17) mg/dL Creatinine 0.66 (0.52-1.04) mg/dL Est GFR (CKD-EPI)AfAm >90 (>60 ml/min/1.73 sqM) Est GFR (CKD-EPI)NonAf >90 (>60 ml/min/1.73 sqM) Glucose 151 H (74-99) mg/dL Calcium 8.3 L (8.4-10.2) mg/dL Magnesium 1.8 (1.6-2.3) mg/dL Total Bilirubin 0.3 (0.2-1.3) mg/dL AST 84 H (14-36) U/L ALT 36 H (4-34) U/L Alkaline Phosphatase 107 (38-126) U/L Total Protein 6.7 (6.3-8.2) g/dL Albumin 4.4 (3.5-5.0) g/dL Lipase 1082 H (23-300) U/L Serum Alcohol 507 H* mg/dL Disposition Clinical Impression: Alcoholic intoxication, Hypokalemia, Acute pancreatitis Disposition: ADMITTED IP TO THIS HOSP Condition: Fair Referrals: Josef Carlson MD [Primary Care Provider] - 1-2 days
[2021-06-04 12:47] LABS: Alcohol 507 mg/dL
[2021-06-04] MEDS ORDERED: POTASSIUM BICARBONATE/CIT AC 20 MEQ TABLET.EFF PO ONE (12:50)
[2021-06-04] MEDS ORDERED: NALOXONE 0.4 MG/ML 1 ML VIAL IV PRN (13:22)
[2021-06-04] MEDS ORDERED: LORazepam 2 MG/ML INJ IV PRN ×2 (13:24)
[2021-06-04] MEDS: SODIUM CHLORIDE 0.9% 1,000 ML IV SCH (13:27)
[2021-06-04] MEDS: LORazepam 2 MG/ML INJ IV PRN ×4 (14:54→23:44)
[2021-06-04] MEDS: ONDANSETRON 4 MG/2 ML VIAL IVP PRN ×2 (14:54→22:55)
[2021-06-04] MEDS: ACAMPROSATE CALCIUM 333 MG TABLET.DR PO SCH ×2 (15:18→21:01)
[2021-06-04] MEDS: THIAMINE 100 MG TAB PO SCH (15:18)
[2021-06-04] MEDS: NICOTINE 14MG/24HR PATCH TRANSDERM SCH (15:18)
[2021-06-04] MEDS: KETOROLAC 15 MG/ML 1 ML VIAL IVP PRN ×2 (16:49→22:55)
--- NOTE | 2021-06-04 19:49 | CONS ---
CONSULTATION DATE OF SERVICE: 06/04/2021 REQUESTING PHYSICIAN: Dr. Josef Carlson. REASON FOR CONSULTATION: Acute pancreatitis and history of alcohol abuse. HISTORY OF PRESENT ILLNESS: The patient is a 45-year-old pleasant white female with history of heavy alcohol abuse, currently intoxicated. She came into the emergency room apparently complaining of some abdominal pain and nausea and vomiting. She is not a poor historian. In the ER, she did have labs done that showed an elevated lipase at 1082. Serum alcohol level was 507. AST and ALT were slightly elevated at 84 and 36, and hence we are consulted in regards to this issue. On further questioning, the patient states that she has been drinking heavily for the last 20-25 years duration with multiple hospitalizations for the same in the past her. PAST MEDICAL HISTORY: Significant for alcohol abuse, posttraumatic stress disorder, anxiety, depression. MEDICATIONS: Medications at home include trazodone, Ultram, hydrochlorothiazide, Zoloft, Ativan, Motrin, Cardizem and Campral. ALLERGIES: PENICILLIN. SOCIAL HISTORY: Heavy smoking and heavy alcohol abuse for the last 25 years duration. PAST SURGICAL HISTORY: Exploratory laparotomy and some kind of an orthopedic surgery. REVIEW OF SYSTEMS: CARDIOPULMONARY: She denies any chest pain or shortness of breath. GENITOURINARY: No dysuria or hematuria. MUSCULOSKELETAL: She reports no symptoms. NEUROLOGY: Slightly confused. ENT/VISION: Unremarkable. CONSTITUTIONAL: No recent weight loss. No fever, chills, night sweats. HEMATOLOGY: Severe anemia. ENDOCRINE: Unremarkable. PAST FAMILY HISTORY: Father had osteoarthritis. PHYSICAL EXAMINATION: She appears comfortable. VITAL SIGNS: Stable. Blood pressure is 145/65, pulse rate 107, temperature 98. HEENT examination unremarkable. Conjunctivae pink. Sclerae anicteric. Oral cavity, no lesions. NECK: No JVD or lymph node enlargement. CHEST: Clear to auscultation. HEART: Regular rate and rhythm. ABDOMEN: Soft. It was soft, nondistended. Bowel sounds are positive. No organomegaly. EXTREMITIES: No pedal edema. NEUROLOGIC: She is oriented to name and place but not to time. No focal deficits. LABS: From today WBC for 5.9, hemoglobin 11.7, platelets 110. Basic metabolic panel is within normal limits. AST is 84, ALT is 36, lipase 1082. Alcohol level is 507. IMPRESSION: 1. Abdominal pain associated with nausea, vomiting and elevated lipase consistent with acute pancreatitis related to alcohol abuse. 2. Acute alcoholic intoxication. 3. Mild elevation of serum transaminases most likely related to underlying chronic liver disease from alcohol use. 4. History of anxiety and depression. 5. History of heavy alcohol abuse. RECOMMENDATIONS: 1. Continue with symptomatic and supportive care. 2. Monitor for DTs/acute alcohol withdrawal. 3. Continue with Protonix 40 mg daily. 4. Antiemetics as needed. 5. Start on clear liquid diet and advance as tolerated. 6. We will follow with you closely. STUARTL / IJN: [id number] /
[2021-06-05] MEDS: LORazepam 2 MG/ML INJ IV PRN ×7 (01:41→22:26)
[2021-06-05] MEDS: ONDANSETRON 4 MG/2 ML VIAL IVP PRN (04:01)
[2021-06-05 04:28] LABS: Anisocytosis Slight; Basophils % (A) 0 %; Eosinophils % (A) 0 %; HCT 30.6 % (34.0-46.0); HGB 10.2 gm/dL (11.4-16.0); Lymphocytes # (A) 0.5 k/uL (1.0-4.8); Lymphocytes % (A) 10 %; MCH 30.5 pg (25.0-35.0); MCHC 33.5 g/dL (31.0-37.0); MCV 91.1 fL (80.0-100.0); Mean Platelet Volume 7.7; Monocytes # (A) 0.2 k/uL (0-1.0); Monocytes % (A) 3 %; Neutrophils # (A) 4.4 k/uL (1.3-7.7); Neutrophils % (A) 85 %; RBC 3.35 m/uL (3.80-5.40); RDW 18.3 % (11.5-15.5); WBC 5.1 k/uL (3.8-10.6)
[2021-06-05 05:35] LABS: Platelet Count 94 k/uL (150-450)
[2021-06-05] MEDS: PANTOPRAZOLE 40 MG/10 ML VIAL IVP SCH (08:03)
[2021-06-05] MEDS: KETOROLAC 15 MG/ML 1 ML VIAL IVP PRN ×2 (08:03→17:06)
[2021-06-05] MEDS: ACAMPROSATE CALCIUM 333 MG TABLET.DR PO SCH ×3 (08:04→22:26)
[2021-06-05] MEDS: SERTRALINE 100 MG TAB PO SCH (08:04)
[2021-06-05] MEDS: THIAMINE 100 MG TAB PO SCH ×2 (08:04→17:07)
[2021-06-05] MEDS: DILTIAZEM CD 180 MG CAP.ER.24H PO SCH (08:04)
[2021-06-05] MEDS: NICOTINE 14MG/24HR PATCH TRANSDERM SCH (08:04)
[2021-06-05] MEDS: SODIUM CHLORIDE 0.9% 1,000 ML IV SCH ×2 (08:12→17:04)
[2021-06-05 09:27] LABS: African American GFR (CKD) 129.4 (60.0-200.0); Anion Gap 12.5 mmol/L (4.00-12.00); Calcium 8.5 mg/dL (8.7-10.3); Carbon Dioxide 29.5 mmol/L (21.6-31.8); Non-African American GFR(CKD) 111.6 (60.0-200.0); Total Bilirubin 0.7 mg/dL (0.3-1.2)
[2021-06-06] MEDS: LORazepam 2 MG/ML INJ IV PRN ×2 (01:55→08:14)
[2021-06-06] MEDS: SODIUM CHLORIDE 0.9% 1,000 ML IV SCH (01:57)
[2021-06-06] MEDS: PANTOPRAZOLE 40 MG/10 ML VIAL IVP SCH (08:13)
--- NOTE | 2021-06-06 08:13 | PN ---
PROGRESS NOTE A 45-year-old with alcohol intoxication with large tremors. IV q.2 hours p.r.n. Cardiovascular S1, S2. Lungs clear. Extremities with tremors. Prognosis is guarded. Continue for the next 24 to 48 hours for possible discharge pending alcohol withdrawal treatment. Possibly starting on Naltrexone for alcohol addiction medicine. MMODL / IJN: [id number] /
[2021-06-06] MEDS: SERTRALINE 100 MG TAB PO SCH (08:14)
[2021-06-06] MEDS: KETOROLAC 15 MG/ML 1 ML VIAL IVP PRN ×3 (08:14→23:34)
[2021-06-06] MEDS: ACAMPROSATE CALCIUM 333 MG TABLET.DR PO SCH ×3 (08:15→21:01)
[2021-06-06] MEDS: DILTIAZEM CD 180 MG CAP.ER.24H PO SCH (08:15)
[2021-06-06] MEDS: NICOTINE 14MG/24HR PATCH TRANSDERM SCH (08:15)
[2021-06-06] MEDS: THIAMINE 100 MG TAB PO SCH ×2 (08:15→15:26)
--- NOTE | 2021-06-06 09:29 | PN ---
PROGRESS NOTE DATE OF SERVICE: 06/06/2021 INTERVAL HISTORY: Patient is a 45-year-old white female admitted to the hospital with acute alcoholic intoxication and presently going through alcohol withdrawal. She also had mild acute pancreatitis related to alcohol use and lipase is gradually improving. Today she denies any abdominal pain. No nausea, no vomiting. Overall feeling good. Remains on a clear liquid diet, tolerating well. PHYSICAL EXAMINATION: GENERAL: Appears more comfortable. VITAL SIGNS: Stable. Blood pressure 168/113, pulse rate 81, temperature 99.1. HEENT: Examination unremarkable. Conjunctivae are pink. Sclerae anicteric. Oral cavity no lesions. NECK: No JVD or lymph node enlargement. CHEST: Clear to auscultation. HEART: Regular rate and rhythm. ABDOMEN: Soft with very minimal tenderness in the epigastric area. The rest of the abdomen was benign. EXTREMITIES: No pedal edema noted. SKIN: No rashes. NEURO: She is alert and oriented x3. No focal deficits. LABS: WBC 5.1, hemoglobin 10.2, platelets 94,000. AST 69, ALT 41, T bilirubin 0.7, alkaline phosphatase 107, lipase is 95. IMPRESSION: 1. Acute pancreatitis related to alcohol use. Lipase has significantly improved to 95. Clinically, patient's symptoms are resolving on a clear liquid diet, tolerating well. 2. History of heavy alcohol abuse. 3. Acute alcohol withdrawal, being monitored closely. 4. Mild elevation of serum transaminases secondary to alcoholic liver disease. RECOMMENDATIONS: 1. Advance to low-fat diet. 2. Treat alcohol withdrawal per protocol. 3. Monitor labs closely. 4. Abstinence from alcohol. 5. We will follow with you. Thank you for this consultation. MMODL / IJN: [id number] /
[2021-06-06] MEDS: METOPROLOL TARTRATE 12.5 MG TAB PO SCH ×2 (15:26→21:01)
[2021-06-06] MEDS: diazePAM 2 MG TAB PO SCH ×2 (15:26→21:01)
[2021-06-06] MEDS ORDERED: POTASSIUM CHLORIDE ER 20 MEQ TAB.ER PO STA (15:37)
[2021-06-06] MEDS: IPRATROPIUM-ALBUTEROL 3 ML NEB INHALATION SCH ×2 (15:39→19:47)
--- NOTE | 2021-06-06 15:40 | P.PN ---
Progress Note - Text Progress Note Date: 06/06/21 Presenting complaint: Alcohol intoxication Interval history: This is a long-standing alcoholic who presented with alcohol intoxication. June 06: Patient on the CIWA scale. Requiring Ativan. Did eat some lunch. Feels weak. Slight tremors. Anxious. Patient also wheezing. Long-standing smoker up to 10 days ago Review of systems: Was done for constitutional, cardiovascular, GI, pulmonary. relevant finding as above Active Medications Acamprosate (Acamprosate Calcium 333 Mg Tablet.) 333 mg PO TID [facility] Last Admin: 06/06/21 15:26 Dose: 333 mg Documented by: Albuterol/Ipratropium (Ipratropium-Albuterol 3 Ml Neb) 3 ml INHALATION RT-QID [facility] Budesonide (Budesonide 1 Mg/2 Ml Nebu) 1 mg INHALATION RT-BID [facility] Diazepam (Diazepam 2 Mg Tab) 2 mg PO TID [facility] Last Admin: 06/06/21 15:26 Dose: 2 mg Documented by: Diltiazem HCl (Diltiazem Cd 180 Mg Cap.Er.24h) 180 mg PO DAILY [facility] Last Admin: 06/06/21 08:15 Dose: 180 mg Documented by: Ketorolac Tromethamine (Ketorolac 15 Mg/Ml 1 Ml Vial) 15 mg IVP Q6HR PRN PRN Reason: Moderate Pain Stop: 06/07/21 13:24 Last Admin: 06/06/21 08:14 Dose: 15 mg Documented by: Lorazepam (Lorazepam 2 Mg/Ml Inj) 1 mg IV Q2HR PRN PRN Reason: CIWA 8 or 9 Last Admin: 06/06/21 08:14 Dose: 1 mg Documented by: Lorazepam (Lorazepam 2 Mg/Ml Inj) 1 mg IV Q1HR PRN PRN Reason: CIWA 10 to 15 Metoprolol Tartrate (Metoprolol Tartrate 12.5 Mg Tab) 12.5 mg PO TID [facility] Last Admin: 06/06/21 15:26 Dose: 12.5 mg Documented by: Naloxone HCl (Naloxone 0.4 Mg/Ml 1 Ml Vial) 0.2 mg IV Q2M PRN PRN Reason: Opioid Reversal Nicotine (Nicotine 14mg/24hr Patch) 1 patch TRANSDERM DAILY [facility] Last Admin: 06/06/21 08:15 Dose: 1 patch Documented by: Ondansetron HCl (Ondansetron 4 Mg/2 Ml Vial) 4 mg IVP Q6HR PRN PRN Reason: Nausea And Vomiting Last Admin: 06/05/21 04:01 Dose: 4 mg Documented by: Pantoprazole Sodium (Pantoprazole 40 Mg Tablet) 40 mg PO AC-BRKFST [facility] Sertraline HCl (Sertraline 100 Mg Tab) 100 mg PO DAILY [facility] Last Admin: 06/06/21 08:14 Dose: 100 mg Documented by: Thiamine HCl (Thiamine 100 Mg Tab) 100 mg PO BID-W/MEALS [facility] Last Admin: 06/06/21 15:26 Dose: 100 mg Documented by: On examination: VITAL SIGNS: [99.1, 81, 16, 160 /113, 98%] GENERAL APPEARANCE: BMI 34.7, sitting on bed, anxious. HEENT: Normal external appearance of nose and ear. Oral cavity normal EYES: Pupils equal. Conjunctiva normal. NECK: JVD not raised. Mass not palpable. RESPIRATORY: Respiratory effort increased, decreased breath sounds on expiration and wheezing. CARDIOVASCULAR: First and second sounds normal. No edema. ABDOMEN: Soft. Liver and spleen not palpable. No tenderness. No mass palpable. PSYCHIATRY: Alert and oriented x3. Mood and affect anxious Neurological: Slight tremors INVESTIGATIONS, reviewed in the clinical context: White count 5.1 hemoglobin 10.2 platelets 94 potassium 3 BUN 12 creatinine 0.6 AST 69 ALT 41 lipase 95 Serum alcohol 507 Assessment and plan: -Acute alcohol withdrawal syndrome Continue CIWA scale. Add Valium 2 mg 3 times a day. Lopressor 12.5 mg by mouth 3 times a day -Acute COPD exacerbation in a current smoker: New diagnosis DuoNeb -Chronic nicotine dependence, cigarette smoker Nicotine patch -Thrombocytopenia secondary to alcoholism -Hypokalemia. 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 Add Lopressor 12.5 mg by mouth 3 times a day. DuoNeb
[2021-06-06] MEDS: BUDESONIDE 1 MG/2 ML NEBU INHALATION SCH ×2 (15:45→19:47)
[2021-06-06] MEDS: MAGNESIUM OXIDE 400 MG TAB PO SCH (21:01)
[2021-06-07] MEDS: ONDANSETRON 4 MG/2 ML VIAL IVP PRN ×2 (02:09→07:58)
[2021-06-07 06:18] LABS: African American GFR (CKD) >90 (>60 ml/min/1.73 sqM); Anion Gap 9 mmol/L; Blood Urea Nitrogen 26 mg/dL (7-17); Carbon Dioxide 24 mmol/L (22-30); Chloride 106 mmol/L (98-107); Glucose 114 mg/dL (74-99); Magnesium 1.9 mg/dL (1.6-2.3); Non-African American GFR(CKD) >90 (>60 ml/min/1.73 sqM); Potassium 3.5 mmol/L (3.5-5.1); Sodium 139 mmol/L (137-145)
[2021-06-07] MEDS: IPRATROPIUM-ALBUTEROL 3 ML NEB INHALATION SCH ×4 (07:19→18:42)
[2021-06-07] MEDS: BUDESONIDE 1 MG/2 ML NEBU INHALATION SCH ×2 (07:19→18:42)
[2021-06-07] MEDS: diazePAM 2 MG TAB PO SCH ×3 (07:54→20:51)
[2021-06-07] MEDS: PANTOPRAZOLE 40 MG TABLET PO SCH (07:54)
[2021-06-07] MEDS: METOPROLOL TARTRATE 12.5 MG TAB PO SCH ×3 (07:54→20:51)
[2021-06-07] MEDS: DILTIAZEM CD 180 MG CAP.ER.24H PO SCH (07:55)
[2021-06-07] MEDS: SERTRALINE 100 MG TAB PO SCH (07:55)
[2021-06-07] MEDS: MAGNESIUM OXIDE 400 MG TAB PO SCH ×2 (07:55→20:51)
[2021-06-07] MEDS: THIAMINE 100 MG TAB PO SCH ×2 (07:55→17:34)
[2021-06-07] MEDS: NICOTINE 14MG/24HR PATCH TRANSDERM SCH (07:55)
[2021-06-07] MEDS: ACAMPROSATE CALCIUM 333 MG TABLET.DR PO SCH ×3 (07:55→20:51)
[2021-06-07] MEDS: KETOROLAC 15 MG/ML 1 ML VIAL IVP PRN (07:58)
[2021-06-07] MEDS ORDERED: PROCHLORPERAZINE 10 MG TAB PO PRN (11:18)
[2021-06-07] MEDS: traMADol 50 MG TAB PO PRN ×2 (11:57→19:33)
--- NOTE | 2021-06-07 15:15 | P.CN ---
Psychiatric Consult - . Consult date: 06/07/21 Consult:: 06/07/21 15:14 IDENTIFYING DATA: This patient is a single, unemployed, 45-year-old female admitted for alcohol intoxication HISTORY OF PRESENT ILLNESS: The patient presented to the hospital on 06/01/21, brought in by EMS with a chief complaint of alcohol intoxication. She has presented to this hospital with similar complaints before. She is currently homeless. Psychiatry has been consulted for evaluation and management of depression. The patient is currently homeless and does not have any significant supportive family. She does report a significant history of anxiety and depression and has reported panic attacks in the past. She has been experiencing these symptoms since the age of 17 or 18. In regards to depressive symptoms, the patient does endorse low mood, difficulty sleeping, and low motivation. She vehemently denies any suicidal or homicidal ideation, intention, and/or plan. She reports no prior attempts at suicide. The patient does appear to be future oriented stating that she would like to go to inpatient verbalization for her alcohol use disorder. The patient is open to having her acamprosate increased to address her alcohol cravings. During her last admission, the patient was started on Zoloft and trazodone. She would like to restart trazodone to aid with her insomnia. PAST PSYCHIATRIC HISTORY: Patient has reported history of anxiety and depression. During her last presentation to this hospital, the patient was started on acamprosate, Zoloft, and trazodone. She denies any prior psychiatric inpatient admissions. She reports no outpatient psychiatric treatment. She reports no prior attempts at suicide. PAST MEDICAL HISTORY: Past Medical History: Hypertension Additional Past Medical History / Comment(s): Herniated Disk History of Any Multi-Drug Resistant Organisms: None Reported Past Surgical History: Orthopedic Surgery Additional Past Surgical History / Comment(s): Exploratory surgery Past Anesthesia/Blood Transfusion Reactions: No Reported Reaction Past Psychological History: No Psychological Hx Reported Smoking Status: Current every day smoker Past Alcohol Use History: Abuse, Daily, Heavy Past Drug Use History: Marijuana ALLERGIES: Penicillins CHEMICAL DEPENDENCY HISTORY: The patient reports daily and heavy alcohol use. She reports drinking up to a pint of liquor per day. She also reports marijuana use. She takes tramadol for pain as well. FAMILY PSYCHIATRIC/SUBSTANCE USE HISTORY: She reports that her brother has a significant history of anxiety and panic attacks. She reports multiple family members also have a history of alcohol use disorder. She reports no family history of suicide. SOCIAL HISTORY: Patient is currently single, never , has no children, and is currently unemployed. She reportedly moved out of the house when she was 19. She finished high school and attended 2 years of college. 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 MENTAL STATUS EXAM: General Appearance: Patient appears to be stated age is alert, pleasant, and cooperative. Patient appears to have fair hygiene and grooming wearing hospital gown with poor eye contact. Behavior: Patient is calmly lying in bed without any agitated behavior. Speech: Patient's speech is fluent and nonpressured. Mood/Affect: Patient reports their mood is "I feel sick", affect is congruent and malaised Suicidality/Homicidality: Patient denies having any suicidal or homicidal ideation intent or plan. Perceptions: Patient denies any visual hallucinations and denies any auditory hallucinations Though content/process: There is no evidence of any delusional thought content and thought process is linear and goal-directed. Memory and concentration: AOX3, grossly intact for the purposes of this session. Can spell "WORLD" backwards Judgment and insight: Fair Vital Signs Temp 98.8 F 06/07/21 11:53 Pulse 77 06/07/21 11:53 Resp 16 06/07/21 11:53 BP 147/97 06/07/21 11:53 Pulse Ox 99 06/07/21 11:53 Intake & Output 06/06/21 06/07/21 06/07/21 18:59 06:59 18:59 Intake Total 400 1000 Balance 400 1000 Intake: Oral 400 1000 Other: Voiding Method Toilet Toilet Toilet # Voids 3 Laboratory Results WBC 5.1 k/uL (3.8-10.6) 06/05/21 03:39 RBC 3.35 m/uL (3.80-5.40) L 06/05/21 03:39 Hgb 10.2 gm/dL (11.4-16.0) L 06/05/21 03:39 Hct 30.6 % (34.0-46.0) L 06/05/21 03:39 MCV 91.1 fL (80.0-100.0) 06/05/21 03:39 MCH 30.5 pg (25.0-35.0) 06/05/21 03:39 MCHC 33.5 g/dL (31.0-37.0) 06/05/21 03:39 RDW 18.3 % (11.5-15.5) H 06/05/21 03:39 Plt Count 94 k/uL (150-450) L 06/05/21 03:39 MPV 7.7 06/05/21 03:39 Neutrophils % 85 % 06/05/21 03:39 Lymphocytes % 10 % 06/05/21 03:39 Monocytes % 3 % 06/05/21 03:39 Eosinophils % 0 % 06/05/21 03:39 Basophils % 0 % 06/05/21 03:39 Neutrophils # 4.4 k/uL (1.3-7.7) 06/05/21 03:39 Lymphocytes # 0.5 k/uL (1.0-4.8) L 06/05/21 03:39 Monocytes # 0.2 k/uL (0-1.0) 06/05/21 03:39 Eosinophils # 0.0 k/uL (0-0.7) 06/05/21 03:39 Basophils # 0.0 k/uL (0-0.2) 06/05/21 03:39 Manual Slide Review Performed 06/05/21 03:39 Anisocytosis Slight 06/05/21 03:39 Sodium 139 mmol/L (137-145) 06/07/21 04:54 Potassium 3.5 mmol/L (3.5-5.1) 06/07/21 04:54 Chloride 106 mmol/L (98-107) 06/07/21 04:54 Carbon Dioxide 24 mmol/L (22-30) 06/07/21 04:54 Anion Gap 9 mmol/L 06/07/21 04:54 BUN 26 mg/dL (7-17) H 06/07/21 04:54 Creatinine 0.71 mg/dL (0.52-1.04) 06/07/21 04:54 Est GFR (CKD-EPI)AfAm >90 (>60 ml/min/1.73 sqM) 06/07/21 04:54 Est GFR (CKD-EPI)NonAf >90 (>60 ml/min/1.73 sqM) 06/07/21 04:54 BUN/Creatinine Ratio 20.00 Ratio (12.00-20.00) 06/05/21 03:39 Glucose 114 mg/dL (74-99) H 06/07/21 04:54 Calcium 9.0 mg/dL (8.4-10.2) 06/07/21 04:54 Magnesium 1.9 mg/dL (1.6-2.3) 06/07/21 04:54 Total Bilirubin 0.7 mg/dL (0.3-1.2) 06/05/21 03:39 AST 69 U/L (13-35) H 06/05/21 03:39 ALT 41 U/L (8-44) 06/05/21 03:39 Alkaline Phosphatase 107 U/L (41-126) 06/05/21 03:39 Total Protein 6.0 g/dL (6.2-8.2) L 06/05/21 03:39 Albumin 4.00 g/dL (3.80-4.90) 06/05/21 03:39 Globulin 2.0 g/dL (1.6-3.3) 06/05/21 03:39 Albumin/Globulin Ratio 2.00 g/dL (1.60-3.17) 06/05/21 03:39 Lipase 95 U/L (14-63) H 06/05/21 03:39 Serum Alcohol 507 mg/dL H* 06/04/21 12:09 IMPRESSIONS: Panic disorder Depressive disorder, likely secondary to alcohol use Alcohol use disorder Posttraumatic stress disorder PLAN: -At this time patient DOES NOT meet criteria for inpatient psychiatric admission. The patient's primary issue is her heavy alcohol use. Although she relapsed, she maintains that she is future oriented and wishes to quit alcohol use and plans to go to inpatient rehabilitation. She is currently not reporting any suicidal ideation, intention, and/or plan and has not had any prior attempts at suicide. -Would recommend the following medication changes/additions: Continue Zoloft 100 mg by mouth daily for depression/anxiety/PTSD Start trazodone 100 mg by mouth at bedtime for insomnia Increase acamprosate to 666 mg by mouth 3 times a day for alcohol cessation -Continue [facility] protocol - benzodiazepines for withdrawal. -Recommend referral for inpatient rehabilitation for alcohol use disorder. -Psychiatry will sign off at this point, please contact with any questions.
--- NOTE | 2021-06-07 17:06 | P.PN ---
Subjective Progress Note Date: 06/07/21 Principal diagnosis: Alcohol intoxication, acute pancreatitis This is a 45-year-old white female who was admitted to the hospital with acute alcoholic intoxication who was actively going through alcohol withdrawal. She had mild acute pancreatitis related to alcohol use and lipase is gradually improving. Today she denies any abdominal pain, however states she has had some nausea and vomiting this morning. She's been advanced to a low fat diet. Objective - Vital Signs Vital signs: Vital Signs Temp 98.9 F 06/07/21 05:00 Pulse 71 06/07/21 05:00 Resp 18 06/07/21 05:00 BP 146/92 06/07/21 05:00 Pulse Ox 98 06/07/21 05:00 Intake & Output 06/06/21 06/07/21 06/07/21 18:59 06:59 18:59 Intake Total 400 1000 Balance 400 1000 Intake: Oral 400 1000 Other: Voiding Method Toilet Toilet Toilet # Voids 3 - Exam General appearance: The patient is alert, oriented, appears in no acute distress. HET: Head is normocephalic and atraumatic. Conjunctiva pink. Sclera anicteric. Neck: Supple without lymphadenopathy. Abdomen: Soft, nontender, nondistended with bowel sounds. No guarding or rigidity. Extremities: Normal skin color and turgor. No pedal edema Skin: No rashes, no jaundice Neurological: No focal deficits. Alert and oriented 3. - Labs CBC & Chem 7: 06/05/21 03:39 06/07/21 04:54 Labs: Abnormal Lab Results - Last 24 Hours (Table) 06/07/21 Range/Units 04:54 BUN 26 H (7-17) mg/dL Glucose 114 H (74-99) mg/dL Assessment and Plan (1) Acute pancreatitis Narrative/Plan: 45-year-old who presented to the hospital with alcohol intoxication and was found to have acute pancreatitis related to alcohol use. Lipase has significantly improved. Clinically patient's symptoms are resolving. Current Visit: Yes Status: Acute Code(s): K85.90 - ACUTE PANCREATITIS WITHOUT NECROSIS OR INFECTION, UNSP SNOMED Code(s): 725098343 (2) Alcohol withdrawal Current Visit: Yes Status: Acute Code(s): F10.239 - ALCOHOL DEPENDENCE WITH WITHDRAWAL, UNSPECIFIED SNOMED Code(s): 593272169 (3) Alcoholic intoxication Current Visit: Yes Status: Acute Code(s): F10.929 - ALCOHOL USE, UNSPECIFIED WITH INTOXICATION, UNSPECIFIED SNOMED Code(s): 03924200 (4) Elevated LFTs Narrative/Plan: mild elevation of serum transaminases secondary to alcoholic liver disease Current Visit: Yes Status: Acute Code(s): R79.89 - OTHER SPECIFIED ABNORMAL FINDINGS OF BLOOD CHEMISTRY SNOMED Code(s): 826821907 Plan: 1. Continue low-fat diet 2. Continue to treat alcohol withdrawal per protocol 3. Abstinence from alcohol 4. Continue antiemetics as needed 5. Thank you for this consultation, we will continue to follow Dr. Lisset Connors I agree with the dictator's note, documented as a scribe by Cami Arvizu.
[2021-06-07] MEDS: traZODone HCL 100 MG TAB PO SCH (20:51)
--- NOTE | 2021-06-08 06:21 | PN ---
PROGRESS NOTE A 45-year-old female admitted with alcohol withdrawal. Patient is depressed, states she is super depressed. She is doing to go to [place]. She wants to see a psychiatrist, which has been ordered. She remains on her Zoloft and her home medications including trazodone at night. Her pancreatitis is improving with decreased abdominal pain. She is on regular food. Cardiovascular S1-S2. Lungs clear. GI soft. Hemoglobin is 10.2, sodium 139, potassium 3.5. Magnesium normal. Bilirubin is normal. The lipase went from 1082 down to 95. ASSESSMENT: 1. Alcohol withdrawal. 2. Depression. Wait for clearance by Psychiatry probably before going to [place]. Continue with [facility] protocol. MMODL / IJN: [id number] /
[2021-06-08 06:49] LABS: Anisocytosis Slight; Basophils % (A) 1 %; Eosinophils # (A) 0.2 k/uL (0-0.7); Eosinophils % (A) 4 %; HCT 34.1 % (34.0-46.0); HGB 10.9 gm/dL (11.4-16.0); Lymphocytes # (A) 1.2 k/uL (1.0-4.8); Lymphocytes % (A) 30 %; MCH 30.3 pg (25.0-35.0); MCHC 32.1 g/dL (31.0-37.0); MCV 94.5 fL (80.0-100.0); Macrocytosis Slight; Mean Platelet Volume 7.7; Monocytes # (A) 0.2 k/uL (0-1.0); Monocytes % (A) 5 %; Neutrophils # (A) 2.3 k/uL (1.3-7.7); Neutrophils % (A) 58 %; RBC 3.61 m/uL (3.80-5.40); RDW 18.2 % (11.5-15.5)
[2021-06-08 06:57] LABS: Platelet Count 155 k/uL (150-450)
[2021-06-08] MEDS: BUDESONIDE 1 MG/2 ML NEBU INHALATION SCH ×2 (07:18→19:20)
[2021-06-08] MEDS: IPRATROPIUM-ALBUTEROL 3 ML NEB INHALATION SCH ×4 (07:18→19:20)
[2021-06-08] MEDS: METOPROLOL TARTRATE 12.5 MG TAB PO SCH ×3 (08:50→20:14)
[2021-06-08] MEDS: traMADol 50 MG TAB PO PRN ×2 (08:51→17:12)
[2021-06-08] MEDS: THIAMINE 100 MG TAB PO SCH ×2 (08:51→17:12)
[2021-06-08] MEDS: diazePAM 2 MG TAB PO SCH ×3 (08:51→20:15)
[2021-06-08] MEDS: PANTOPRAZOLE 40 MG TABLET PO SCH ×2 (08:51→17:12)
[2021-06-08] MEDS: NICOTINE 14MG/24HR PATCH TRANSDERM SCH (08:51)
[2021-06-08] MEDS: DILTIAZEM CD 180 MG CAP.ER.24H PO SCH (08:51)
[2021-06-08] MEDS: MAGNESIUM OXIDE 400 MG TAB PO SCH ×2 (08:51→20:15)
[2021-06-08] MEDS: SERTRALINE 100 MG TAB PO SCH (08:51)
[2021-06-08] MEDS: ACAMPROSATE CALCIUM 333 MG TABLET.DR PO SCH ×3 (08:52→20:14)
[2021-06-08 11:51] LABS: Albumin/Globulin Ratio 1.9 (1.60-3.17); Anion Gap 8.7 mmol/L (4.00-12.00); BUN/Creat Ratio 28.57 Ratio (12.00-20.00); Carbon Dioxide 23.3 mmol/L (21.6-31.8); Globulin 2.1 g/dL (1.6-3.3); Non-African American GFR(CKD) 106.1 (60.0-200.0); Potassium 3.5 mmol/L (3.5-5.5); Total Bilirubin 0.4 mg/dL (0.2-1.2); Total Protein 6.1 g/dL (6.2-8.2)
[2021-06-08] MEDS: ONDANSETRON 4 MG/2 ML VIAL IVP PRN (15:25)
--- NOTE | 2021-06-08 16:13 | P.PN ---
Subjective Progress Note Date: 06/08/21 Principal diagnosis: Alcohol intoxication, acute pancreatitis This is a 45-year-old white female who was admitted to the hospital with acute alcoholic intoxication who was actively going through alcohol withdrawal. She had mild acute pancreatitis related to alcohol use and lipase is gradually improving. Patient states she is still having diarrhea after eating, states blood in stool and also had just BRB per rectum. States having "burning" in stomach. Feeling weak and dizzy. States having nausea and vomiting. Objective - Vital Signs Vital signs: Vital Signs Temp 98.0 F 06/08/21 05:20 Pulse 89 06/08/21 05:20 Resp 18 06/08/21 05:20 BP 145/92 06/08/21 05:20 Pulse Ox 99 06/08/21 05:20 Intake & Output 06/07/21 06/08/21 06/08/21 18:59 06:59 18:59 Other: Voiding Method Toilet Toilet # Voids 2 2 - Exam General appearance: The patient is alert, oriented, appears in no acute distress. HET: Head is normocephalic and atraumatic. Conjunctiva pink. Sclera anicteric. Neck: Supple without lymphadenopathy. Abdomen: Soft, nontender, nondistended with bowel sounds. No guarding or rigidity. Extremities: Normal skin color and turgor. No pedal edema Skin: No rashes, no jaundice Neurological: No focal deficits. Alert and oriented 3. - Labs CBC & Chem 7: 06/08/21 05:41 06/08/21 05:41 Labs: Abnormal Lab Results - Last 24 Hours (Table) 06/08/21 Range/Units 05:41 RBC 3.61 L (3.80-5.40) m/uL Hgb 10.9 L (11.4-16.0) gm/dL RDW 18.2 H (11.5-15.5) % Assessment and Plan (1) Acute pancreatitis Narrative/Plan: 45-year-old who presented to the hospital with alcohol intoxication and was found to have acute pancreatitis related to alcohol use. Lipase has significantly improved. Clinically patient's symptoms are resolving. Current Visit: Yes Status: Acute Code(s): K85.90 - ACUTE PANCREATITIS WITHOUT NECROSIS OR INFECTION, UNSP SNOMED Code(s): 881310088 (2) Alcohol withdrawal Current Visit: Yes Status: Acute Code(s): F10.239 - ALCOHOL DEPENDENCE WITH WITHDRAWAL, UNSPECIFIED SNOMED Code(s): 210078838 (3) Alcoholic intoxication Current Visit: Yes Status: Acute Code(s): F10.929 - ALCOHOL USE, UNSPECIFIED WITH INTOXICATION, UNSPECIFIED SNOMED Code(s): 80838354 (4) Elevated LFTs Narrative/Plan: mild elevation of serum transaminases secondary to alcoholic liver disease Current Visit: Yes Status: Acute Code(s): R79.89 - OTHER SPECIFIED ABNORMAL FINDINGS OF BLOOD CHEMISTRY SNOMED Code(s): 692283950 Plan: 1. Continue low-fat diet 2. Continue to treat alcohol withdrawal per protocol 3. Abstinence from alcohol 4. Continue antiemetics as needed 5. Stool studies ordered 6. Thank you for this consultation, we will continue to follow Dr. Lisset Connors I agree with the dictator's note, documented as a scribe by Cami Arvizu.
[2021-06-08] MEDS: traZODone HCL 100 MG TAB PO SCH (20:15)
[2021-06-09] MEDS ORDERED: traMADol 50 MG TAB ONE (01:00)
--- NOTE | 2021-06-09 05:05 | PN ---
PROGRESS NOTE 45-year-old white female with alcohol intoxication, been seen by Psychiatry. Psychiatry medications been increased for alcohol withdrawal. Possibly some depression medicine. Awaiting [facility] transfer or to go to a homeless custodial. Cardiovascular S1, S2. Lungs clear. GI: She has had a lot of bleeding from the rectum today. Bright red blood. GI has been consult. Await further recommendations from GI doctor. Continue with CIWA protocol for alcohol withdrawal. Depression medicines will be continued. Please see further orders. MMODL / IJN: [id number] /
[2021-06-09] MEDS: BUDESONIDE 1 MG/2 ML NEBU INHALATION SCH ×2 (07:27→20:09)
[2021-06-09] MEDS: IPRATROPIUM-ALBUTEROL 3 ML NEB INHALATION SCH ×4 (07:27→20:09)
[2021-06-09] MEDS: THIAMINE 100 MG TAB PO SCH ×2 (08:18→16:58)
[2021-06-09] MEDS: METOPROLOL TARTRATE 12.5 MG TAB PO SCH ×3 (08:18→20:30)
[2021-06-09] MEDS: NICOTINE 14MG/24HR PATCH TRANSDERM SCH (08:18)
[2021-06-09] MEDS: PANTOPRAZOLE 40 MG TABLET PO SCH ×2 (08:19→16:58)
[2021-06-09] MEDS: ACAMPROSATE CALCIUM 333 MG TABLET.DR PO SCH ×3 (08:19→20:29)
[2021-06-09] MEDS: SERTRALINE 100 MG TAB PO SCH (08:19)
[2021-06-09] MEDS: diazePAM 2 MG TAB PO SCH ×3 (08:19→20:29)
[2021-06-09] MEDS: MAGNESIUM OXIDE 400 MG TAB PO SCH ×2 (08:19→20:29)
[2021-06-09] MEDS: DILTIAZEM CD 180 MG CAP.ER.24H PO SCH (08:19)
[2021-06-09] MEDS: traMADol 50 MG TAB PO PRN ×2 (10:01→18:02)
--- NOTE | 2021-06-09 10:04 | P.PN ---
Subjective Progress Note Date: 06/09/21 Principal diagnosis: Alcohol intoxication, acute pancreatitis This is a 45-year-old white female who was admitted to the hospital with acute alcoholic intoxication who was actively going through alcohol withdrawal. She had mild acute pancreatitis related to alcohol use and lipase is gradually improving. Patient states diarrhea improved, soft and somewhat formed. No bleeding. Denies any nausea or vomiting. Still has some abdominal discomfort but improved. Is tolerating a regular diet. Objective - Vital Signs Vital signs: Vital Signs Temp 98.3 F 06/09/21 04:35 Pulse 65 06/09/21 04:35 Resp 18 06/09/21 04:35 BP 127/82 06/09/21 04:35 Pulse Ox 98 06/09/21 04:35 Intake & Output 06/08/21 06/09/21 06/09/21 18:59 06:59 18:59 Intake Total 480 Balance 480 Intake: Oral 480 Other: # Voids 2 2 - Exam General appearance: The patient is alert, oriented, appears in no acute distress. HET: Head is normocephalic and atraumatic. Conjunctiva pink. Sclera anicteric. Neck: Supple without lymphadenopathy. Abdomen: Soft, nontender, nondistended with bowel sounds. No guarding or rigidity. Extremities: Normal skin color and turgor. No pedal edema Skin: No rashes, no jaundice Neurological: No focal deficits. Alert and oriented 3. - Labs CBC & Chem 7: 06/08/21 05:41 06/08/21 05:41 Labs: Abnormal Lab Results - Last 24 Hours (Table) 06/08/21 Range/Units 05:41 Chloride 110 H (96-109) mmol/L BUN/Creatinine Ratio 28.57 H (12.00-20.00) Ratio AST 40 H (13-35) U/L Total Protein 6.1 L (6.2-8.2) g/dL Lipase 75 H (14-63) U/L Assessment and Plan (1) Acute pancreatitis Narrative/Plan: 45-year-old who presented to the hospital with alcohol intoxication and was found to have acute pancreatitis related to alcohol use. Lipase has significantly improved. Clinically patient's symptoms are resolving. Current Visit: Yes Status: Acute Code(s): K85.90 - ACUTE PANCREATITIS WITHOUT NECROSIS OR INFECTION, UNSP SNOMED Code(s): 567847893 (2) Alcohol withdrawal Current Visit: Yes Status: Acute Code(s): F10.239 - ALCOHOL DEPENDENCE WITH WITHDRAWAL, UNSPECIFIED SNOMED Code(s): 001087169 (3) Alcoholic intoxication Current Visit: Yes Status: Acute Code(s): F10.929 - ALCOHOL USE, UNSPECIFIED WITH INTOXICATION, UNSPECIFIED SNOMED Code(s): 73843319 (4) Elevated LFTs Narrative/Plan: mild elevation of serum transaminases secondary to alcoholic liver disease Current Visit: Yes Status: Acute Code(s): R79.89 - OTHER SPECIFIED ABNORMAL FINDINGS OF BLOOD CHEMISTRY SNOMED Code(s): 827958506 Plan: 1. Continue low-fat diet 2. Continue to treat alcohol withdrawal per protocol 3. Abstinence from alcohol 4. Continue antiemetics as needed 5. Stool culture pending 6. Gallbladder US ordered 7. Thank you for this consultation, we we will continue to follow. Dr. Lisset Connors I agree with the dictator's note, documented as a scribe by Cami Arvizu.
[2021-06-09] MEDS: traZODone HCL 100 MG TAB PO SCH (20:30)
[2021-06-10] MEDS: traMADol 50 MG TAB PO PRN ×2 (01:06→09:03)
[2021-06-10] MEDS: ONDANSETRON 4 MG/2 ML VIAL IVP PRN (01:06)
[2021-06-10] MEDS: BUDESONIDE 1 MG/2 ML NEBU INHALATION SCH (07:34)
[2021-06-10] MEDS: IPRATROPIUM-ALBUTEROL 3 ML NEB INHALATION SCH ×3 (07:34→15:21)
--- NOTE | 2021-06-10 07:56 | US ---
EXAMINATION TYPE: US gallbladder DATE OF EXAM: 06/10/2021 COMPARISON: NONE CLINICAL HISTORY: 45-year-old female abdominal pain. RUQ pain after meals, diarrhea TECHNIQUE: Multiple sonographic images of the right upper quadrant are obtained. FINDINGS: EXAM MEASUREMENTS: Liver Length: 15.1 cm Gallbladder Wall: 0.47 cm CBD: 0.40 cm Right Kidney: 10.6 x 5.0 x 4.6 cm Pancreas: Obscured by bowel gas Liver: Echogenic and attenuating. No focal lesion identified. Gallbladder: contracted gallbladder despite being NPO. No shadowing calculi or surrounding fluid see n. Evidence for sonographic Demarco's sign: Yes CBD: wnl Right Kidney: No hydronephrosis or masses seen IMPRESSION: 1. At least moderate hepatic steatosis. Correlate with LFTs, lipid profile, and patient risk factors. 2. The gallbladder is contracted arguing against acute cholecystitis. However, sonographic Demarco sig n is reported positive. If concern for biliary dyskinesia or gallbladder hyperkinesis, consider HIDA scan. 3. No biliary ductal dilatation.
[2021-06-10] MEDS: METOPROLOL TARTRATE 12.5 MG TAB PO SCH ×2 (08:30→17:40)
[2021-06-10] MEDS: SERTRALINE 100 MG TAB PO SCH (08:30)
[2021-06-10] MEDS: MAGNESIUM OXIDE 400 MG TAB PO SCH (08:30)
[2021-06-10] MEDS: ACAMPROSATE CALCIUM 333 MG TABLET.DR PO SCH ×2 (08:30→17:40)
[2021-06-10] MEDS: PANTOPRAZOLE 40 MG TABLET PO SCH ×2 (08:30→17:40)
[2021-06-10] MEDS: diazePAM 2 MG TAB PO SCH ×2 (08:30→17:40)
[2021-06-10] MEDS: NICOTINE 14MG/24HR PATCH TRANSDERM SCH (08:30)
[2021-06-10] MEDS: DILTIAZEM CD 180 MG CAP.ER.24H PO SCH (08:30)
[2021-06-10] MEDS: THIAMINE 100 MG TAB PO SCH ×2 (09:03→17:40)
--- NOTE | 2021-06-10 11:59 | P.PN ---
Subjective Progress Note Date: 06/10/21 Principal diagnosis: Alcohol intoxication, acute pancreatitis This is a 45-year-old white female who was admitted to the hospital with acute alcoholic intoxication who was actively going through alcohol withdrawal. She had mild acute pancreatitis related to alcohol use and lipase is gradually improving. Patient states diarrhea improved, soft and somewhat formed. Had one bm BM through the night. No bleeding. Denies any nausea or vomiting. Still has some abdominal discomfort but improved. Is tolerating a regular diet. Gallbladder ultrasound was unremarkable. Objective - Vital Signs Vital signs: Vital Signs Temp 98.6 F 06/10/21 04:30 Pulse 68 06/10/21 04:30 Resp 20 06/10/21 04:30 BP 143/83 06/10/21 04:30 Pulse Ox 96 06/10/21 04:30 Intake & Output 06/09/21 06/10/21 06/10/21 18:59 06:59 18:59 Intake Total 0 Balance 0 Intake: Oral 0 Other: # Voids 2 2 # Bowel Movements 1 - Exam General appearance: The patient is alert, oriented, appears in no acute distress. HET: Head is normocephalic and atraumatic. Conjunctiva pink. Sclera anicteric. Neck: Supple without lymphadenopathy. Abdomen: Soft, nontender, nondistended with bowel sounds. No guarding or rigidity. Extremities: Normal skin color and turgor. No pedal edema Skin: No rashes, no jaundice Neurological: No focal deficits. Alert and oriented 3. - Labs CBC & Chem 7: 06/08/21 05:41 06/08/21 05:41 Labs: Microbiology - Last 24 Hours (Table) 06/09/21 08:46 Stool Culture - Preliminary Stool Assessment and Plan (1) Acute pancreatitis Narrative/Plan: 45-year-old who presented to the hospital with alcohol intoxication and was found to have acute pancreatitis related to alcohol use. Lipase has significantly improved. Clinically patient's symptoms are resolving. Current Visit: Yes Status: Acute Code(s): K85.90 - ACUTE PANCREATITIS WITHOUT NECROSIS OR INFECTION, UNSP SNOMED Code(s): 866699650 (2) Alcohol withdrawal Current Visit: Yes Status: Acute Code(s): F10.239 - ALCOHOL DEPENDENCE WITH WITHDRAWAL, UNSPECIFIED SNOMED Code(s): 394088598 (3) Alcoholic intoxication Current Visit: Yes Status: Acute Code(s): F10.929 - ALCOHOL USE, UNSPECIFIED WITH INTOXICATION, UNSPECIFIED SNOMED Code(s): 74856148 (4) Elevated LFTs Narrative/Plan: mild elevation of serum transaminases secondary to alcoholic liver disease Current Visit: Yes Status: Acute Code(s): R79.89 - OTHER SPECIFIED ABNORMAL FINDINGS OF BLOOD CHEMISTRY SNOMED Code(s): 496948679 Plan: 1. Continue low-fat diet 2. Continue to treat alcohol withdrawal per protocol 3. Abstinence from alcohol 4. Continue antiemetics as needed 5. Stool culture pending 6. Gallbladder US ordered and reviewed 7. Thank you for this consultation, cleared for discharge from gastroente rology. Dr. Lisset Connors I agree with the dictator's note, documented as a scribe by Cami Arvizu.
[2021-06-10 12:31] VITALS: BP 139/90; PULSE 70; RESP 19; TEMP 98.1
[2021-06-10 13:34] VITALS: BMI 34.7
--- NOTE | 2021-09-02 22:49 | HP ---
HISTORY AND PHYSICAL This 45-year-old white female came in with alcohol intoxication to the hospital with alcohol withdrawal and altered mental status. She denies any suicidal or homicidal ideations. She came in with withdrawal and tremor, near DTs. Home medicines are Motrin, tramadol, multivitamins. Social history: She has difficulties with her family living situation on and off with her mom and severe work and home difficulties making her drink. Home medicines include Symbicort 160/4.5 two puffs b.i.d., Campral 333 t.i.d. for alcohol suppression. She has been on azithromycin for a sinus infection, Cardizem CD 180 mg daily, nicotine patch 21 mg daily, Zoloft mg daily, HydroDIURIL 25 mg daily, 20 mg daily, Desyrel 50 mg at night. ALLERGIES: PENICILLIN. Fourteen-point review of systems otherwise negative except for weakness, lethargy. FAMILY HISTORY: Father with osteoarthritis. PHYSICAL EXAMINATION: Altered mental status. She is alert. No acute distress. Normocephalic, atraumatic. Pupils equal, round, reactive. NECK: Supple. LUNGS: Mild rhonchi, wheeze. CARDIOVASCULAR: S1, S2. GI: Distended. Obesity. NEUROLOGIC: Alert and oriented x3. Mild tremor. VITAL SIGNS: Temperature 98, pulse 99 to 103, respiratory rate 20 to 22, blood pressure 128 to 132 over 65 to 78, O2 98 to 99. LABS: Sodium 139, potassium 3.0. White count 5.9, hemoglobin 11.7. ASSESSMENT: 1. Alcoholic intoxication. 2. Hypokalemia. 3. Acute on chronic pancreatitis with a lipase of 1082, a serum alcohol level of 507 with acute alcohol intoxication with alcohol dependence. 4. Elevated liver enzymes secondary to alcoholism. 5. Hyperglycemia secondary to possible diabetes. 6. Depression. 7. Anxiety. 8. Alcohol dependence. [facility] protocol. Psych consult. Replace electrolytes. N.p.o. due to acute pancreatitis. Follow closely. Do a HIDA scan to rule out gallbladder dysfunction. Surgical consult. Prognosis guarded. MMODL / IJN: [id number] /
--- NOTE | 2021-09-02 23:40 | DS ---
DISCHARGE SUMMARY This 45-year-old white female was admitted with alcohol intoxication, hypokalemia, acute on chronic pancreatitis, alcohol dependence, depression, anxiety. Seen by GI doctor. [facility] protocol was given. Pancreatitis calmed down with clear liquid diets and fluids for the next couple days. [facility] protocol was followed. DATE OF ADMISSION: 06/04/2021 DATE OF DISCHARGE: 06/10/2021 DISCHARGE MEDICATIONS: 1. Zoloft 100 mg once a day for depression. 2. Desyrel 50 at bedtime for depression. 3. Ibuprofen 800 b.i.d. 4. Tramadol 50 t.i.d. 5. Campral 333 t.i.d. 6. Diltiazem CD 180 mg daily. 7. HydroDIURIL 25 mg daily. 8. Ativan 0.5 mg daily. 9. Trazodone 100 mg at night. 10.Nicotine patch 14 mg daily. 11.Thiamin 100 mg daily. 12.Mag oxide 400 mg b.i.d. 13.Protonix 40 mg b.i.d. CONDITION: Stable. PROGNOSIS: Guarded. Follow up with [facility] for alcohol withdrawal, alcohol withdrawal counseling and treatment in their overnight program. MMODL / IJN: [id number] /
== END 2021-06-10 18:31 | disposition home or self-care (01) | DRG 439 ==
LOC: EC 11:31 → 5NMEDONC 12:49
PROVIDERS: ADMIT Family Medicine; ATTEND Family Medicine
DX: K85.20 Alcohol induced acute pancreatitis without necrosis or infection (principal); J44.1 Chronic obstructive pulmonary disease with (acute) exacerbation; F10.239 Alcohol dependence with withdrawal, unspecified; F10.229 Alcohol dependence with intoxication, unspecified; Y90.8 Blood alcohol level of 240 mg/100 ml or more; E87.6 Hypokalemia; F41.9 Anxiety disorder, unspecified; F32.9 Major depressive disorder, single episode, unspecified; K70.9 Alcoholic liver disease, unspecified; F41.0 Panic disorder [episodic paroxysmal anxiety]; D69.59 Other secondary thrombocytopenia; F43.10 Post-traumatic stress disorder, unspecified; I10 Essential (primary) hypertension; F17.210 Nicotine dependence, cigarettes, uncomplicated; G47.00 Insomnia, unspecified; Z59.0 Homelessness; Z79.51 Long term (current) use of inhaled steroids; Z79.899 Other long term (current) drug therapy; Z81.1 Family history of alcohol abuse and dependence; Z81.8 Family history of other mental and behavioral disorders
CPT/HCPCS: 36415; 76705; 80048; 80053; 80320; 83690; 83735; 85025; 87045; 87046; 94640; 96360; 99285

== ENCOUNTER 2021-07-15 22:33 | Inpatient (IN) | payer OTHER ==
--- NOTE | 2021-07-15 23:04 | ED ---
Alcohol HPI - General Chief Complaint: Alcohol Stated Complaint: ETOH Time Seen by Provider: 07/15/21 22:56 Source: patient, RN notes reviewed, old records reviewed Mode of arrival: EMS Limitations: altered mental status, physical limitation - History of Present Illness Initial Comments: This is a 45-year-old female to the ER today. Patient severely intoxicated and unable to provide history per history patient was apparently severely intoxicated publicly, did admit to being homeless and was brought to the ER for evaluation and management, patient initially Crista significant complaints or any drug abuse aside from alcohol. Patient has multiple ER visits for same MD Complaint: alcohol intoxication, alcohol dependence Last Drink: unknown -: minute(s) Previous Visits for Alcohol Intoxication?: Yes Recent Trauma: No Associated Symptoms: denies other symptoms Treatments Prior to Arrival: none Chronic Alcohol Use: Yes - Related Data Home Medications Medication Instructions Recorded Confirmed Ibuprofen [Motrin] 800 mg PO BID 07/14/20 06/04/21 traMADol HCl [Ultram] 50 mg PO TID PRN 07/14/20 06/04/21 LORazepam [Ativan] 0.5 mg PO DAILY PRN 06/04/21 06/04/21 Previous Rx's Medication Instructions Recorded Diltiazem Cd [Cardizem CD] 180 mg PO DAILY 30 Days #30 03/31/21 cap.er.24h Sertraline [Zoloft] 100 mg PO DAILY 30 Days #30 tab 03/31/21 Acamprosate Calcium [Campral] 666 mg PO TID 30 Days #90 tablet. 06/09/21 Magnesium Oxide [Mag-Ox] 400 mg PO BID 30 Days #60 tab 06/09/21 Metoprolol Tartrate [Lopressor] 12.5 mg PO TID 90 Days #180 tab 06/09/21 Nicotine 14Mg/24Hr Patch [Habitrol] 1 patch TRANSDERM DAILY 30 Days 06/09/21 #30 patch Pantoprazole [Protonix] 40 mg PO AC-BID 30 Days #60 06/09/21 tablet. Thiamine [Vitamin B-1] 100 mg PO BID-W/MEALS 30 Days #30 06/09/21 tab traZODone HCL [Desyrel] 100 mg PO HS 30 Days #30 tab 06/09/21 Allergies Allergy/AdvReac Type Severity Reaction Status Date / Time Penicillins Allergy Unknown Verified 07/15/21 22:51 Childhood Review of Systems ROS Statement: Those systems with pertinent positive or pertinent negative responses have been documented in the HPI. ROS Other: All systems not noted in ROS Statement are negative. Past Medical History Past Medical History: Hypertension Additional Past Medical History / Comment(s): Herniated Disk. History of Any Multi-Drug Resistant Organisms: None Reported Past Surgical History: Appendectomy, Orthopedic Surgery Additional Past Surgical History / Comment(s): titanium, Exploratory surgery. Past Anesthesia/Blood Transfusion Reactions: No Reported Reaction Past Psychological History: No Psychological Hx Reported Smoking Status: Current every day smoker Past Alcohol Use History: Abuse, Daily, Heavy Past Drug Use History: None Reported - Past Family History Father Family Medical History: Osteoarthritis (OA) General Exam Limitations: altered mental status General appearance: appears intoxicated, lethargic Head exam: Present: atraumatic, normocephalic, normal inspection Eye exam: Present: normal appearance, PERRL, EOMI. Absent: scleral icterus, conjunctival injection, periorbital swelling ENT exam: Present: normal exam, mucous membranes moist Neck exam: Present: normal inspection. Absent: tenderness, meningismus, lymphadenopathy Respiratory exam: Present: normal lung sounds bilaterally. Absent: respiratory distress, wheezes, rales, rhonchi, stridor Cardiovascular Exam: Present: regular rate, normal rhythm, normal heart sounds. Absent: systolic murmur, diastolic murmur, rubs, gallop, clicks GI/Abdominal exam: Present: soft, normal bowel sounds. Absent: distended, tenderness, guarding, rebound, rigid Extremities exam: Present: normal inspection, full ROM, normal capillary refill. Absent: tenderness, pedal edema, joint swelling, calf tenderness Back exam: Present: normal inspection Neurological exam: Present: alert, oriented X3, CN II-XII intact Psychiatric exam: Present: normal affect, normal mood Skin exam: Present: warm, dry, intact, normal color. Absent: rash Course Vital Signs 07/15/21 22:48 Temperature 99 F Pulse Rate 110 H Respiratory 18 Rate Blood Pressure 126/82 O2 Sat by Pulse 97 Oximetry - Reevaluation(s) Reevaluation #1: 07/16/21 00:58 Medical record is reviewed Reevaluation #2: 07/16/21 00:58 Patient currently unresponsive to questioning has remained awake and alert we will need to be admitted for monitoring Medical Decision Making - Medical Decision Making 45 female with history of severe alcohol abuse coming in for severe alcoholism, unresponsiveness, impending DTs. Disposition Clinical Impression: Alcohol withdrawal, Alcoholic intoxication, Alcohol withdrawal delirium, Alcohol abuse with withdrawal Disposition: ADMITTED IP TO THIS HOSP Condition: Fair Is patient prescribed a controlled substance at d/c from ED?: No
[2021-07-15] MEDS ORDERED: LORazepam 2 MG/ML INJ IV PRN (23:51)
[2021-07-15] MEDS ORDERED: SODIUM CHLORIDE 0.9% 500 ML 500 ML IV STA (23:51)
[2021-07-15] MEDS ORDERED: THIAMINE 100 MG/ML 2 ML VIAL IM STA (23:51)
[2021-07-15] MEDS ORDERED: SODIUM CHLORIDE 0.9% 1,000 ML IV STA (23:51)
[2021-07-15] MEDS ORDERED: NALOXONE 0.4 MG/ML 1 ML VIAL IV PRN (23:54)
[2021-07-16] MEDS: DEXTROSE 5%-0.45% NACL 1,000 ML IV SCH ×3 (00:52→17:54)
[2021-07-16] MEDS: LORazepam 2 MG/ML INJ IV PRN ×8 (00:53→22:56)
[2021-07-16 01:29] LABS: Anisocytosis Moderate; Basophils % (A) 0 %; Eosinophils % (A) 0 %; HCT 26.1 % (34.0-46.0); Lymphocytes # (A) 0.3 k/uL (1.0-4.8); Lymphocytes % (A) 8 %; MCH 32.8 pg (25.0-35.0); MCHC 34.1 g/dL (31.0-37.0); Macrocytosis Slight; Mean Platelet Volume 7.3; Monocytes # (A) 0.2 k/uL (0-1.0); Monocytes % (A) 5 %; Neutrophils # (A) 3.2 k/uL (1.3-7.7); Neutrophils % (A) 82 %; RBC 2.72 m/uL (3.80-5.40); RDW 20.6 % (11.5-15.5); WBC 3.9 k/uL (3.8-10.6)
[2021-07-16 01:47] LABS: HGB 8.9 gm/dL (11.4-16.0)
[2021-07-16 01:48] LABS: ALT 53 U/L (4-34); AST 94 U/L (14-36); African American GFR (CKD) >90 (>60 ml/min/1.73 sqM); Alkaline Phosphatase 119 U/L (38-126); Anion Gap 9 mmol/L; Blood Urea Nitrogen 13 mg/dL (7-17); Calcium 7.4 mg/dL (8.4-10.2); Carbon Dioxide 25 mmol/L (22-30); Chloride 106 mmol/L (98-107); Glucose 111 mg/dL (74-99); Lipase 808 U/L (23-300); Non-African American GFR(CKD) >90 (>60 ml/min/1.73 sqM); Phosphorus 3.7 mg/dL (2.5-4.5); Sodium 140 mmol/L (137-145); Total Bilirubin <0.1 mg/dL (0.2-1.3); Total Protein 5.5 g/dL (6.3-8.2)
[2021-07-16 02:10] LABS: Potassium 2.7 mmol/L (3.5-5.1)
[2021-07-16 02:11] LABS: Alcohol 375 mg/dL
[2021-07-16 02:33] LABS: Polychromasia Present
[2021-07-16 02:34] LABS: Platelet Count 76 k/uL (150-450)
[2021-07-16] MEDS: POTASSIUM CHLORIDE 10 MEQ in WATER FOR INJECTION 1 100ML.BAG IVPB SCH ×6 (03:57→10:16)
[2021-07-16 05:55] LABS: Anisocytosis Moderate; Basophils % (A) 0 %; Eosinophils % (A) 1 %; HGB 8.5 gm/dL (11.4-16.0); Hypochromasia Slight; Lymphocytes # (A) 0.3 k/uL (1.0-4.8); Lymphocytes % (A) 11 %; MCH 33.1 pg (25.0-35.0); MCHC 33.8 g/dL (31.0-37.0); Macrocytosis Moderate; Mean Platelet Volume 8.7; Monocytes # (A) 0.2 k/uL (0-1.0); Monocytes % (A) 5 %; Neutrophils # (A) 2.5 k/uL (1.3-7.7); Neutrophils % (A) 80 %; Poikilocytosis Slight; RBC 2.55 m/uL (3.80-5.40); RDW 21.2 % (11.5-15.5); WBC 3.1 k/uL (3.8-10.6)
[2021-07-16 05:58] LABS: Platelet Count 60 k/uL (150-450)
[2021-07-16 06:10] LABS: ALT 47 U/L (4-34); AST 84 U/L (14-36); African American GFR (CKD) >90 (>60 ml/min/1.73 sqM); Albumin 2.8 g/dL (3.5-5.0); Alkaline Phosphatase 105 U/L (38-126); Anion Gap 5 mmol/L; Blood Urea Nitrogen 11 mg/dL (7-17); Calcium 7.2 mg/dL (8.4-10.2); Carbon Dioxide 25 mmol/L (22-30); Chloride 106 mmol/L (98-107); Glucose 129 mg/dL (74-99); Lipase 709 U/L (23-300); Magnesium 1.7 mg/dL (1.6-2.3); Non-African American GFR(CKD) >90 (>60 ml/min/1.73 sqM); Phosphorus 2.7 mg/dL (2.5-4.5); Potassium 2.9 mmol/L (3.5-5.1); Sodium 136 mmol/L (137-145); Total Bilirubin <0.1 mg/dL (0.2-1.3); Total Protein 5.1 g/dL (6.3-8.2)
[2021-07-16] MEDS ORDERED: ACETAMINOPHEN TAB 500 MG TAB PO STA (07:48)
[2021-07-16] MEDS: ONDANSETRON 4 MG/2 ML VIAL IVP PRN ×2 (08:02→17:53)
--- NOTE | 2021-07-16 08:09 | XR ---
EXAMINATION TYPE: XR chest 2V DATE OF EXAM: 07/16/2021 COMPARISON: 03/27/2021 HISTORY: Difficulty breathing TECHNIQUE: Frontal and lateral views of the chest are obtained. FINDINGS: There is no focal air space opacity. No evidence for pneumothorax. No pleural effusion. There is cardiomegaly with mild pulmonary venous prominence. No evidence for overt congestive failure . The osseous structures are grossly intact. IMPRESSION: 1. There is cardiomegaly with mild pulmonary venous prominence. No evidence for overt congestive steve lure.
[2021-07-16] MEDS: THIAMINE 100 MG TAB PO SCH ×2 (08:43→17:53)
[2021-07-16] MEDS: PANTOPRAZOLE 40 MG/10 ML VIAL IV SCH (10:16)
[2021-07-16 10:31] LABS: Appearance,Urine Cloudy (Clear); Bacteria,Urine Occasional /hpf; Bilirubin,Urine Negative (Negative); Blood,Urine Trace (Negative); Color,Urine Yellow; Glucose,Urine (UA) Negative (Negative); Hyaline Casts,Urine 5 /lpf (0-2); Ketones,Urine Negative (Negative); Leukocyte Esterase,Urine Large (Negative); Mucus,Urine Rare /hpf; Nitrite,Urine Positive (Negative); Protein,Urine 1+ (Negative); RBC,Urine 5 /hpf (0-5); Specific Gravity,Urine 1.015 (1.001-1.035); Squamous Epithelial Cell,Urine 3 /hpf (0-4); Urobilinogen,Urine <2.0 mg/dL (<2.0); WBC,Urine 70 /hpf (0-5)
[2021-07-16] MEDS: traMADol 50 MG TAB PO PRN ×2 (11:27→19:13)
--- NOTE | 2021-07-16 11:43 | HP ---
HISTORY AND PHYSICAL HISTORY OF PRESENT ILLNESS: 45-year-old female came to emergency room severely intoxicated unable to give history. Alcohol level was 300. She was placed on CIWA protocol. Get psych consult. She is going to go through CIWA protocol and alcohol withdrawal. MEDICATIONS: Home medicines she takes tramadol 50 t.i.d. for wrist osteoarthritis, Cardizem CD 120 mg daily, Zoloft 100 mg daily, Campral 666 t.i.d. Mag oxide 400 b.i.d., Lopressor 12.5 b.i.d., nicotine patch, Protonix, thiamine, Desyrel 100 q.h.s. ALLERGIES: PENICILLIN. REVIEW OF SYMPTOMS: 14-point review of systems otherwise negative. PAST MEDICAL HISTORY: Hypertension, herniated disc. PAST SURGICAL HISTORY: Appendectomy, orthopedic surgery. FAMILY HISTORY: Father osteoarthritis. PHYSICAL EXAMINATION: Blood pulse is 110, respiratory 16 to 18, blood pressure is 120s over 80s, O2 97. CARDIOVASCULAR S1, S2. NEUROLOGIC: She has moderate tremor. Cranial nerves are intact. PSYCH: Fair mood and affect. SKIN warm, dry, intact. LUNGS clear. ASSESSMENT: 1. Alcohol withdrawal. 2. Alcohol intoxication. 3. Alcohol withdrawal delirium. 4. Alcohol abuse, withdrawal. 5. Hypertension. 6. Depression. 7. Wrist osteoarthritis. 8. Degenerative disc disease. CIWA protocol. Admit the patient. Neurology and psych consult. MMODL / RITAN: [id number] /
[2021-07-16] MEDS ORDERED: IOPAMIDOL CONTRAST (ORAL USE) VIAL PO PRN (12:14)
--- NOTE | 2021-07-16 14:14 | P.GSCN ---
History of Present Illness Consult date: 07/16/21 History of present illness: CHIEF COMPLAINT: Alcohol intoxication HISTORY OF PRESENT ILLNESS: This is a 45-year-old female with known history of alcohol abuse and pancreatitis. She came into the ER severely intoxicated. She is homeless and also has a history of drug abuse. She has a prior surgical history of appendectomy and exploratory laparotomy. Surgical service was consulted for patient's abdominal pain. Patient complains of left-sided pain. Patient reports her last alcoholic beverage was yesterday. She is having nausea and vomiting. She has elevated serum alcohol level of 375. Lipase is mildly elevated. She does have evidence of UTI. Patient is on antibiotics. Patient seen and examined with Dr. kelsey PAST MEDICAL HISTORY: See list. PAST SURGICAL HISTORY: See list. MEDICATIONS: See list. ALLERGIES: See list. SOCIAL HISTORY: No illicit drug use. REVIEW OF SYSTEMS: CONSTITUTIONAL: Denies fever or chills. HEENT: Denies blurred vision, vision changes, or eye pain. Denies hemoptysis CARDIOVASCULAR: Denies chest pain or pressure. RESPIRATORY: No shortness of breath. GASTROINTESTINAL: See HPI for pertinent findings HEMATOLOGIC: Denies bleeding disorders. GENITOURINARY: Denies any blood in urine or increased urinary frequency. SKIN: Denies pruitis. Denies rash. PHYSICAL EXAM: VITAL SIGNS: Reviewed GENERAL: Well-developed in no acute distress. HEENT: No sclera icterus. Extraocular movements grossly intact. Moist buccal mucosa. Head is atraumatic, normocephalic. No nasal drainage. ABDOMEN: Soft. Obese. Nondistended. Left-sided abdominal tenderness and epigastric tenderness with palpation NEUROLOGIC: Alert and oriented. Cranial nerves II through XII grossly intact. LABORATORY DATA: WBC is 3.1 hemoglobin is 8.5 platelets 60 sodium 136 potassium 2.9 creatinine 0.61 Glucose 129 magnesium 1.7 AST 84 ALT 47 total bilirubin less than 0.1 lipase 808 down to 709 IMAGING: Abdominal ultrasound from 06/10/2021 moderate hepatic steatosis. Gallbladder is contracted arguing against acute cholecystitis however Demarco sign is reported positive. Concern for biliary dyskinesia or gallbladder hypokinesia consider HIDA scan. No biliary ductal dilation. ASSESSMENT: 1. Alcohol intoxication 2. Left-sided abdominal pain 3. Acute pancreatitis likely alcohol induced 4. UTI 5. Hypokalemia PLAN: -Computed tomography scan of the abdomen and pelvis ordered for further evaluation of left-sided abdominal pain and to rule out possible colitis -Keep patient nothing by mouth -Continue IV fluids -Continue to correct low potassium -Follow up on labs in a.m. -Continue antibiotics -Continue alcohol withdrawal protocol Thank you for this consultation Physician Fish Receiver note has been reviewed by physician. Signing provider agrees with the documented findings, assessment, and plan of care. Past Medical History Past Medical History: Hypertension Additional Past Medical History / Comment(s): Herniated Disk. History of Any Multi-Drug Resistant Organisms: None Reported Past Surgical History: Appendectomy, Orthopedic Surgery Additional Past Surgical History / Comment(s): titanium, Exploratory surgery. Past Anesthesia/Blood Transfusion Reactions: No Reported Reaction Past Psychological History: No Psychological Hx Reported Smoking Status: Current every day smoker Past Alcohol Use History: Abuse, Daily, Heavy Past Drug Use History: None Reported - Past Family History Father Family Medical History: Osteoarthritis (OA) Medications and Allergies Home Medications Medication Instructions Recorded Confirmed Type Ibuprofen [Motrin] 800 mg PO BID 07/14/20 07/16/21 History traMADol HCl [Ultram] 50 mg PO TID PRN 07/14/20 07/16/21 History Diltiazem Cd [Cardizem CD] 180 mg PO DAILY 30 Days #30 03/31/21 07/16/21 Rx cap.er.24h Sertraline [Zoloft] 100 mg PO DAILY 30 Days #30 tab 03/31/21 07/16/21 Rx Magnesium Oxide [Mag-Ox] 400 mg PO BID 30 Days #60 tab 06/09/21 07/16/21 Rx Metoprolol Tartrate [Lopressor] 12.5 mg PO TID 90 Days #180 tab 06/09/21 07/16/21 Rx Nicotine 14Mg/24Hr Patch [Habitrol] 1 patch TRANSDERM DAILY 30 Days 06/09/21 07/16/21 Rx #30 patch Pantoprazole [Protonix] 40 mg PO AC-BID 30 Days #60 06/09/21 07/16/21 Rx tablet. traZODone HCL [Desyrel] 100 mg PO HS 30 Days #30 tab 06/09/21 07/16/21 Rx Allergies Allergy/AdvReac Type Severity Reaction Status Date / Time Penicillins Allergy Unknown Verified 07/16/21 07:12 Childhood Surgical - Exam Vital Signs Temp Pulse Resp BP Pulse Ox 99 F 110 H 18 126/82 97 07/15/21 22:48 07/15/21 22:48 07/15/21 22:48 07/15/21 22:48 07/15/21 22:48 Results - Labs 07/16/21 05:37 07/16/21 05:37 Abnormal Lab Results - Last 24 Hours (Table) 07/16/21 07/16/21 07/16/21 Range/Units 00:38 00:38 05:37 WBC 3.1 L (3.8-10.6) k/uL RBC 2.72 L 2.55 L (3.80-5.40) m/uL Hgb 8.9 L D 8.5 L (11.4-16.0) gm/dL Hct 26.1 L 25.0 L (34.0-46.0) % RDW 20.6 H 21.2 H (11.5-15.5) % Plt Count 76 L D 60 L (150-450) k/uL Lymphocytes # 0.3 L 0.3 L (1.0-4.8) k/uL Sodium (137-145) mmol/L Potassium 2.7 L* (3.5-5.1) mmol/L Glucose 111 H (74-99) mg/dL Calcium 7.4 L (8.4-10.2) mg/dL Total Bilirubin <0.1 L (0.2-1.3) mg/dL AST 94 H (14-36) U/L ALT 53 H (4-34) U/L Total Protein 5.5 L (6.3-8.2) g/dL Albumin 3.0 L (3.5-5.0) g/dL Lipase 808 H (23-300) U/L Urine Appearance (Clear) Urine Protein (Negative) Urine Blood (Negative) Urine Nitrite (Negative) Ur Leukocyte Esterase (Negative) Urine WBC (0-5) /hpf Urine Bacteria (None) /hpf Hyaline Casts (0-2) /lpf Urine Mucus (None) /hpf Serum Alcohol 375 H* mg/dL 07/16/21 07/16/21 Range/Units 05:37 10:09 WBC (3.8-10.6) k/uL RBC (3.80-5.40) m/uL Hgb (11.4-16.0) gm/dL Hct (34.0-46.0) % RDW (11.5-15.5) % Plt Count (150-450) k/uL Lymphocytes # (1.0-4.8) k/uL Sodium 136 L (137-145) mmol/L Potassium 2.9 L (3.5-5.1) mmol/L Glucose 129 H (74-99) mg/dL Calcium 7.2 L (8.4-10.2) mg/dL Total Bilirubin <0.1 L (0.2-1.3) mg/dL AST 84 H (14-36) U/L ALT 47 H (4-34) U/L Total Protein 5.1 L (6.3-8.2) g/dL Albumin 2.8 L (3.5-5.0) g/dL Lipase 709 H (23-300) U/L Urine Appearance Cloudy H (Clear) Urine Protein 1+ H (Negative) Urine Blood Trace H (Negative) Urine Nitrite Positive H (Negative) Ur Leukocyte Esterase Large H (Negative) Urine WBC 70 H (0-5) /hpf Urine Bacteria Occasional H (None) /hpf Hyaline Casts 5 H (0-2) /lpf Urine Mucus Rare H (None) /hpf Serum Alcohol mg/dL Diabetes panel 07/16/21 07/16/21 Range/Units 00:38 05:37 Sodium 140 136 L (137-145) mmol/L Potassium 2.7 L* 2.9 L (3.5-5.1) mmol/L Chloride 106 106 (98-107) mmol/L Carbon Dioxide 25 25 (22-30) mmol/L BUN 13 11 (7-17) mg/dL Creatinine 0.60 0.61 (0.52-1.04) mg/dL Glucose 111 H 129 H (74-99) mg/dL Calcium 7.4 L 7.2 L (8.4-10.2) mg/dL AST 94 H 84 H (14-36) U/L ALT 53 H 47 H (4-34) U/L Alkaline Phosphatase 119 105 (38-126) U/L Total Protein 5.5 L 5.1 L (6.3-8.2) g/dL Albumin 3.0 L 2.8 L (3.5-5.0) g/dL Calcium panel 07/16/21 07/16/21 Range/Units 00:38 05:37 Calcium 7.4 L 7.2 L (8.4-10.2) mg/dL Phosphorus 3.7 2.7 (2.5-4.5) mg/dL Albumin 3.0 L 2.8 L (3.5-5.0) g/dL Pituitary panel 07/16/21 07/16/21 Range/Units 00:38 05:37 Sodium 140 136 L (137-145) mmol/L Potassium 2.7 L* 2.9 L (3.5-5.1) mmol/L Chloride 106 106 (98-107) mmol/L Carbon Dioxide 25 25 (22-30) mmol/L BUN 13 11 (7-17) mg/dL Creatinine 0.60 0.61 (0.52-1.04) mg/dL Glucose 111 H 129 H (74-99) mg/dL Calcium 7.4 L 7.2 L (8.4-10.2) mg/dL Adrenal panel 07/16/21 07/16/21 Range/Units 00:38 05:37 Sodium 140 136 L (137-145) mmol/L Potassium 2.7 L* 2.9 L (3.5-5.1) mmol/L Chloride 106 106 (98-107) mmol/L Carbon Dioxide 25 25 (22-30) mmol/L BUN 13 11 (7-17) mg/dL Creatinine 0.60 0.61 (0.52-1.04) mg/dL Glucose 111 H 129 H (74-99) mg/dL Calcium 7.4 L 7.2 L (8.4-10.2) mg/dL Total Bilirubin <0.1 L <0.1 L (0.2-1.3) mg/dL AST 94 H 84 H (14-36) U/L ALT 53 H 47 H (4-34) U/L Alkaline Phosphatase 119 105 (38-126) U/L Total Protein 5.5 L 5.1 L (6.3-8.2) g/dL Albumin 3.0 L 2.8 L (3.5-5.0) g/dL
--- NOTE | 2021-07-16 14:33 | CT ---
EXAMINATION TYPE: CT abdomen pelvis wo con DATE OF EXAM: 07/16/2021 COMPARISON: None HISTORY: left sided abdominal pain, colitis CT DLP: 1136.8 mGycm Examination of the solid and hollow viscera is limited given the lack of contrast. FINDINGS: LUNG BASES: No evidence for nodule. No evidence for infiltrate. Small pleural effusions are noted. LIVER/GB: The gallbladder is unremarkable. Hepatic steatosis with hepatomegaly noted. No space-occupy ing hepatic lesion. PANCREAS: No pancreatic mass identified. No inflammatory process seen. SPLEEN: No evidence for splenomegaly. No intrasplenic lesions seen. ADRENALS: No adrenal nodules identified. No evidence for thickening. KIDNEYS: No evidence for renal mass. No nephrolithiasis. No hydronephrosis. BOWEL: Appendix has a normal appearance. Mild wall thickening of the right hemicolon may reflect a no nspecific colitis. Lymph nodes: No evidence for adenopathy greater than 1 cm. Abdominal aorta: Atheromatous changes seen. No evidence for aneurysm. Genital organs: No significant abnormality. Other: No significant abnormality. IMPRESSION: 1. No wall thickening right hemicolon may reflect nonspecific colitis. 2. Hepatomegaly with underlying hepatic steatosis.
[2021-07-16] MEDS ORDERED: ACETAMINOPHEN TAB 325 MG TAB PO PRN (17:46)
[2021-07-16] MEDS: METOPROLOL TARTRATE 12.5 MG TAB PO SCH ×2 (17:53→21:02)
[2021-07-16] MEDS ORDERED: FUROSEMIDE 10 MG/ML 2 ML VIAL IV ONE (18:13)
[2021-07-16] MEDS: guaiFENesin-DM 100-10MG/5ML 10 ML CUP PO PRN (19:08)
[2021-07-16] MEDS: ACETAMINOPHEN TAB 500 MG TAB PO PRN (19:08)
[2021-07-16] MEDS: IPRATROPIUM-ALBUTEROL 3 ML NEB INHALATION SCH (19:36)
[2021-07-16] MEDS: AZITHROMYCIN 500 MG in SODIUM CHLORIDE 0.9% 250 ML IVPB SCH (19:39)
[2021-07-16] MEDS: MAGNESIUM OXIDE 400 MG TAB PO SCH (21:02)
[2021-07-17] MEDS: LORazepam 2 MG/ML INJ IV PRN ×4 (01:40→17:13)
[2021-07-17] MEDS: traMADol 50 MG TAB PO PRN ×2 (04:44→15:44)
[2021-07-17] MEDS: guaiFENesin-DM 100-10MG/5ML 10 ML CUP PO PRN (04:44)
--- NOTE | 2021-07-17 07:29 | XR ---
EXAMINATION TYPE: XR chest 2V DATE OF EXAM: 07/17/2021 COMPARISON: 07/16/2021 HISTORY: 45 years Female. STUDY INDICATION GIVEN: Difficulty Breathing . TECHNIQUE: Frontal and lateral chest radiographs FINDINGS AND IMPRESSION: A patchy opacity is more apparent on this study in the left lower lobe basilar segments better seen o n the lateral radiograph concerning for pneumonia and/or subsegmental atelectasis. No pneumothorax or pleural effusion. Normal cardiomediastinal silhouette. No acute osseous abnormality.
[2021-07-17 07:46] LABS: Anisocytosis Moderate; Basophils % (A) 0 %; Eosinophils % (A) 1 %; HCT 26.1 % (34.0-46.0); HGB 8.8 gm/dL (11.4-16.0); Lymphocytes # (A) 0.7 k/uL (1.0-4.8); Lymphocytes % (A) 21 %; MCHC 33.8 g/dL (31.0-37.0); MCV 97.4 fL (80.0-100.0); Macrocytosis Moderate; Mean Platelet Volume 7.8; Monocytes # (A) 0.1 k/uL (0-1.0); Monocytes % (A) 4 %; Neutrophils # (A) 2.1 k/uL (1.3-7.7); Neutrophils % (A) 70 %; RBC 2.67 m/uL (3.80-5.40); RDW 20.8 % (11.5-15.5)
[2021-07-17] MEDS: IPRATROPIUM-ALBUTEROL 3 ML NEB INHALATION SCH ×4 (07:50→20:33)
[2021-07-17 07:59] LABS: Platelet Count 83 k/uL (150-450)
[2021-07-17] MEDS: DEXTROSE 5%-0.45% NACL 1,000 ML IV SCH ×2 (08:23→15:39)
[2021-07-17] MEDS: THIAMINE 100 MG TAB PO SCH ×2 (08:23→15:36)
[2021-07-17] MEDS: SERTRALINE 100 MG TAB PO SCH (08:28)
[2021-07-17] MEDS: MAGNESIUM OXIDE 400 MG TAB PO SCH ×2 (08:28→20:44)
[2021-07-17] MEDS: DILTIAZEM CD 180 MG CAP.ER.24H PO SCH (08:28)
[2021-07-17] MEDS: NICOTINE 14MG/24HR PATCH TRANSDERM SCH (08:28)
[2021-07-17] MEDS: METOPROLOL TARTRATE 12.5 MG TAB PO SCH ×3 (08:28→20:43)
[2021-07-17] MEDS: PANTOPRAZOLE 40 MG/10 ML VIAL IV SCH (08:29)
[2021-07-17 12:11] LABS: African American GFR (CKD) 137.4 (60.0-200.0); Albumin 3.4 g/dL (3.80-4.90); Albumin/Globulin Ratio 1.79 (1.60-3.17); Anion Gap 8.1 mmol/L (4.00-12.00); Calcium 8.1 mg/dL (8.7-10.3); Carbon Dioxide 27.9 mmol/L (21.6-31.8); Globulin 1.9 g/dL (1.6-3.3); Non-African American GFR(CKD) 118.5 (60.0-200.0); Potassium 2.8 mmol/L (3.5-5.5); Total Bilirubin 0.4 mg/dL (0.3-1.2); Total Protein 5.3 g/dL (6.2-8.2)
[2021-07-17 13:43] LABS: Anisocytosis Moderate; Basophils % (A) 1 %; Eosinophils % (A) 1 %; HGB 9.3 gm/dL (11.4-16.0); Lymphocytes # (A) 0.7 k/uL (1.0-4.8); Lymphocytes % (A) 21 %; MCHC 33.3 g/dL (31.0-37.0); Macrocytosis Moderate; Mean Platelet Volume 7.9; Monocytes # (A) 0.1 k/uL (0-1.0); Monocytes % (A) 4 %; Neutrophils # (A) 2.2 k/uL (1.3-7.7); Neutrophils % (A) 70 %; RBC 2.83 m/uL (3.80-5.40); RDW 20.7 % (11.5-15.5); WBC 3.2 k/uL (3.8-10.6)
[2021-07-17 13:44] LABS: Platelet Count 90 k/uL (150-450)
[2021-07-17 13:57] LABS: ALT 48 U/L (4-34); AST 96 U/L (14-36); African American GFR (CKD) >90 (>60 ml/min/1.73 sqM); Albumin 2.8 g/dL (3.5-5.0); Alkaline Phosphatase 119 U/L (38-126); Anion Gap 3 mmol/L; Blood Urea Nitrogen 6 mg/dL (7-17); Calcium 8.2 mg/dL (8.4-10.2); Carbon Dioxide 28 mmol/L (22-30); Chloride 103 mmol/L (98-107); Globulin 2.7 g/dL; Glucose 115 mg/dL (74-99); Non-African American GFR(CKD) >90 (>60 ml/min/1.73 sqM); Potassium 2.8 mmol/L (3.5-5.1); Sodium 134 mmol/L (137-145); Total Bilirubin 0.3 mg/dL (0.2-1.3); Total Protein 5.5 g/dL (6.3-8.2)
--- NOTE | 2021-07-17 15:30 | P.PN ---
Subjective Progress Note Date: 07/17/21 CHIEF COMPLAINT: Abdominal pain HISTORY OF PRESENT ILLNESS: The patient is a 45-year-old female with alcohol abuse admitted with abdominal pain. She presented with alcohol intoxication. She reports soreness along the left upper abdomen. She cannot recollect any trauma to the abdomen. ROS: No fevers or chills. No new chest pain. No productive sputum PHYSICAL EXAM: VITAL SIGNS: Reviewed CONSTITUTIONAL: Well developed and in no acute distress. EYES: Conjuctivae without sclera icterus. Extraocular movements grossly intact. HEAD, EARS, NOSE, THROAT: Moist buccal mucosa. Head is atraumatic, normocephalic. Hears conversational speech. No nasal drainage. NECK: No gross thyroidomegaly. No jugular venous distention. RESPIRATORY: Non-labored respirations and equal bilateral excursions. CARDIOVASCULAR: Regular rate and rhythm. ABDOMEN: Soft. No peritonitis. MUSCULOSKELETAL: No gross deformity of the lower extremities noted. No clubbing. No cyanosis. SKIN: Good skin turgor. Well perfused. NEUROLOGIC: Cranial nerves II through XII grossly intact. No focal or lateralizing signs. PSYCH: Appropriate affect. Alert and oriented to person, place and time. CLINICAL LABS: White blood cell count low at 3.1. Potassium low at 2.9. LFTs elevated STUDIES: CT of the abdomen and pelvis independently reviewed without features of bowel obstruction or perforation. Moderate hepatomegaly identified which with gallbladder present. This is my independent interpretation. ASSESSMENT: 1. Abdominal pain 2. Leukopenia 3. Hypokalemia 4. Alcohol abuse disorder with alcohol intoxication 5. Hepatomegaly PLAN: 1. Alcohol withdrawal protocol 2. Alcohol withdrawal education 3. Conservative management 4. Potassium replacement protocol 5. May have ice chips and popsicles Objective - Vital Signs Vital signs: Vital Signs Temp 99.3 F 07/17/21 05:00 Pulse 82 07/17/21 08:00 Resp 16 07/17/21 08:00 BP 171/86 07/17/21 05:00 Pulse Ox 96 07/17/21 05:00 Intake & Output 07/16/21 07/17/21 07/17/21 18:59 06:59 18:59 Intake Total 0 Balance 0 Weight 101 kg Intake: Oral 0 Other: # Voids 1 # Bowel Movements 1 - Labs CBC & Chem 7: 07/17/21 13:03 07/17/21 13:03 Labs: Abnormal Lab Results - Last 24 Hours (Table) 07/17/21 Range/Units 07:07 WBC 3.0 L (3.8-10.6) k/uL RBC 2.67 L (3.80-5.40) m/uL Hgb 8.8 L (11.4-16.0) gm/dL Hct 26.1 L (34.0-46.0) % RDW 20.8 H (11.5-15.5) % Plt Count 83 L (150-450) k/uL Lymphocytes # 0.7 L (1.0-4.8) k/uL Microbiology - Last 24 Hours (Table) 07/16/21 10:09 Urine Culture - Preliminary Urine,Voided Assessment and Plan (1) Hepatomegaly Current Visit: Yes Status: Acute Code(s): R16.0 - HEPATOMEGALY, NOT ELSEWHERE CLASSIFIED SNOMED Code(s): 12670534 (2) Alcoholic intoxication Current Visit: Yes Status: Acute Code(s): F10.929 - ALCOHOL USE, UNSPECIFIED WITH INTOXICATION, UNSPECIFIED SNOMED Code(s): 87316576 (3) Acute pancreatitis Current Visit: No Status: Acute Code(s): K85.90 - ACUTE PANCREATITIS WITHOUT NECROSIS OR INFECTION, UNSP SNOMED Code(s): 760914774 (4) Hypokalemia Current Visit: No Status: Acute Code(s): E87.6 - HYPOKALEMIA SNOMED Code(s): 72692775
[2021-07-17] MEDS: AZITHROMYCIN 500 MG in SODIUM CHLORIDE 0.9% 250 ML IVPB SCH (15:36)
[2021-07-17] MEDS ORDERED: Magnesium Replacement Protocol 1 EACH MISC MISCELLANE PRN (16:18)
[2021-07-17] MEDS ORDERED: Potassium Replacement Protocol 1 EACH MISC MISCELLANE PRN (16:18)
--- NOTE | 2021-07-17 18:19 | PN ---
PROGRESS NOTE DATE OF SERVICE: 07/17/2021 I am covering for Dr. Carlson. This 45-year-old woman who was admitted with ETOH intoxication and withdrawal is having active DTs. The patient had surgical consultation and abdomen and pelvis CAT scan also. The CT scan shows some nonspecific colitis and hepatomegaly also. The white count is 3.2, hemoglobin 9.3 sodium 130, potassium 2.8. UA shows possibly UTI. PAST MEDICAL HISTORY: Reviewed. REVIEW OF SYSTEMS: CARDIOVASCULAR No angina or palpitations. RESPIRATORY No cough, no hemoptysis. GI As mentioned earlier. No dysuria or hematuria. NERVOUS No numbness or weakness. CURRENT MEDICATIONS: Reviewed include Tylenol, DuoNeb, Zithromax, Rocephin, Cardizem, Ativan, Narcan. Doses reviewed. PHYSICAL EXAMINATION: Patient is alert and oriented x2. Pulse 76, blood pressure 145/90, respiration 20, temperature 99.1, pulse ox 94% on room air HEENT: Conjunctivae normal. Oral mucosa moist. NECK: No jugular venous distention. No lymph node enlargement. CARDIOVASCULAR: S1, S2, muffled. No S3, no S4, RESPIRATORY: Diminished breath sounds at the bases. A few scattered rhonchi. ABDOMEN: Soft, obese. LEGS: No edema, no swelling. NERVOUS SYSTEM: Higher functions as mentioned. Move all four limbs. Diffusely weak and tremors. LABS: WBC 3.2, hemoglobin 9.2, sodium 134, potassium 2.8. Other labs are noted. ASSESSMENT: 1. Acute alcohol withdrawal syndrome and acute delirium tremens. 2. Acute urinary tract infection, present on admission. 3. Change in mental status, acute metabolic encephalopathy. 4. Possible nonspecific colitis. 5. Hyponatremia. 6. Severe hypokalemia. 7. Elevated AST ALT, possibly alcoholic hepatitis. 8. Elevated lipase, possibly mild acute pancreatitis related to alcohol. 9. Mild pancytopenia secondary to alcohol. 10.Hypertension. 11.History of herniated disk and degenerative joint disease. 12.History of nicotine dependence. 13.Obesity with body mass of 34. 14.FULL CODE. RECOMMENDATIONS: In this 45-year-old woman who presented with multiple medical issues, we will monitor the patient closely. Continue current management and symptomatic treatment. Otherwise, CIWA protocol. I would also recommend supplemental vitamins, antibiotics, clonidine, DVT prophylaxis. Guarded prognosis because of multiple complex medical issues. Further recommendations to follow. MMODL / IJN: [id number] /
[2021-07-17 18:29] LABS: ALT 46 U/L (4-34); AST 92 U/L (14-36); African American GFR (CKD) >90 (>60 ml/min/1.73 sqM); Albumin 2.8 g/dL (3.5-5.0); Albumin/Globulin Ratio 1.1; Anion Gap 5 mmol/L; Blood Urea Nitrogen 5 mg/dL (7-17); Carbon Dioxide 25 mmol/L (22-30); Chloride 103 mmol/L (98-107); Globulin 2.5 g/dL; Glucose 147 mg/dL (74-99); Non-African American GFR(CKD) >90 (>60 ml/min/1.73 sqM); Potassium 2.9 mmol/L (3.5-5.1); Sodium 133 mmol/L (137-145); Total Bilirubin 0.3 mg/dL (0.2-1.3); Total Protein 5.3 g/dL (6.3-8.2)
[2021-07-17] MEDS: 0.9% NACL WITH KCL 40 MEQ/L 1,000 ML IV SCH (18:29)
[2021-07-17 18:30] LABS: Alkaline Phosphatase 119 U/L (38-126)
[2021-07-17] MEDS: HEPARIN SODIUM,PORCINE/PF 5,000 UNIT/0.5 ML SYRINGE SQ SCH (20:43)
[2021-07-17] MEDS: traZODone HCL 100 MG TAB PO SCH (20:43)
[2021-07-17] MEDS: LORazepam 1 MG TAB PO PRN (20:43)
[2021-07-17] MEDS: ACETAMINOPHEN TAB 500 MG TAB PO PRN (20:43)
[2021-07-18] MEDS: 0.9% NACL WITH KCL 40 MEQ/L 1,000 ML IV SCH ×2 (04:19→21:17)
[2021-07-18] MEDS: traMADol 50 MG TAB PO PRN ×3 (05:28→21:19)
[2021-07-18 06:27] LABS: Anisocytosis Moderate; Basophils % (A) 0 %; Eosinophils % (A) 1 %; HCT 26.1 % (34.0-46.0); HGB 9.2 gm/dL (11.4-16.0); Lymphocytes # (A) 0.7 k/uL (1.0-4.8); Lymphocytes % (A) 17 %; MCH 34.3 pg (25.0-35.0); MCHC 35.3 g/dL (31.0-37.0); MCV 97.2 fL (80.0-100.0); Macrocytosis Slight; Mean Platelet Volume 7.9; Monocytes # (A) 0.1 k/uL (0-1.0); Monocytes % (A) 3 %; Neutrophils # (A) 3.1 k/uL (1.3-7.7); Neutrophils % (A) 77 %; Platelet Count 102 k/uL (150-450); RBC 2.68 m/uL (3.80-5.40); RDW 20.1 % (11.5-15.5)
[2021-07-18] MEDS: IPRATROPIUM-ALBUTEROL 3 ML NEB INHALATION SCH ×4 (07:13→19:01)
[2021-07-18] MEDS: SERTRALINE 100 MG TAB PO SCH (08:29)
[2021-07-18] MEDS: THIAMINE 100 MG TAB PO SCH ×2 (08:29→16:18)
[2021-07-18] MEDS: PANTOPRAZOLE 40 MG/10 ML VIAL IV SCH (08:29)
[2021-07-18] MEDS: LORazepam 1 MG TAB PO PRN ×3 (08:29→21:20)
[2021-07-18] MEDS: METOPROLOL TARTRATE 12.5 MG TAB PO SCH ×3 (08:29→21:20)
[2021-07-18] MEDS: MAGNESIUM OXIDE 400 MG TAB PO SCH ×2 (08:29→21:19)
[2021-07-18] MEDS: DILTIAZEM CD 180 MG CAP.ER.24H PO SCH (08:29)
[2021-07-18] MEDS: HEPARIN SODIUM,PORCINE/PF 5,000 UNIT/0.5 ML SYRINGE SQ SCH ×2 (08:30→21:18)
[2021-07-18] MEDS: NICOTINE 14MG/24HR PATCH TRANSDERM SCH (08:30)
--- NOTE | 2021-07-18 12:29 | P.PN ---
Subjective Progress Note Date: 07/18/21 CHIEF COMPLAINT: Abdominal pain HISTORY OF PRESENT ILLNESS: The patient is a 45-year-old female with alcohol abuse admitted with abdominal pain. She presented with alcohol intoxication. She reports soreness along the left upper abdomen has now resolved. "I am hungry and want to try to eat." ROS: No fevers or chills. No new chest pain. No productive sputum PHYSICAL EXAM: VITAL SIGNS: Reviewed CONSTITUTIONAL: Well developed and in no acute distress. EYES: Conjuctivae without sclera icterus. Extraocular movements grossly intact. HEAD, EARS, NOSE, THROAT: Moist buccal mucosa. Head is atraumatic, normocephalic. Hears conversational speech. No nasal drainage. RESPIRATORY: Non-labored respirations and equal bilateral excursions. CARDIOVASCULAR: Regular rate and rhythm. ABDOMEN: Soft. No peritonitis. MUSCULOSKELETAL: No gross deformity of the lower extremities noted. SKIN: Good skin turgor. Well perfused. NEUROLOGIC: Cranial nerves II through XII grossly intact. No focal or lateralizing signs. PSYCH: Appropriate affect. Alert and oriented to person, place and time. CLINICAL LABS: Reviewed. White blood cell count normal. ASSESSMENT: 1. Abdominal pain 2. Leukopenia, resolved 3. Hypokalemia 4. Alcohol abuse disorder with alcohol intoxication 5. Hepatomegaly PLAN: 1. Will start regular diet. 2. Alcohol withdrawal protocol advised. Objective - Vital Signs Vital signs: Vital Signs Temp 99.3 F 07/18/21 05:00 Pulse 78 07/18/21 08:00 Resp 16 07/18/21 08:00 BP 157/98 07/18/21 05:00 Pulse Ox 91 L 07/18/21 05:00 Intake & Output 07/17/21 07/18/21 07/18/21 18:59 06:59 18:59 Intake Total 600 1535 Balance 600 1535 Intake: Intake, IV Titration 600 900 Amount 0.9% NaCl with KCl 40 Meq 600 900 /l 1,000 ml @ 75 mls/hr IV .[id number] MISAEL Rx#: [id number] Oral 635 Other: # Voids 1 - Labs CBC & Chem 7: 07/18/21 05:55 07/17/21 17:55 Labs: Abnormal Lab Results - Last 24 Hours (Table) 07/17/21 07/17/21 07/17/21 Range/Units 13:03 13:03 17:55 WBC 3.2 L (3.8-10.6) k/uL RBC 2.83 L (3.80-5.40) m/uL Hgb 9.3 L (11.4-16.0) gm/dL Hct 28.0 L (34.0-46.0) % RDW 20.7 H (11.5-15.5) % Plt Count 90 L (150-450) k/uL Lymphocytes # 0.7 L (1.0-4.8) k/uL Sodium 134 L 133 L (137-145) mmol/L Potassium 2.8 L 2.9 L (3.5-5.1) mmol/L BUN 6 L 5 L (7-17) mg/dL Creatinine 0.43 L 0.43 L (0.52-1.04) mg/dL Glucose 115 H 147 H (74-99) mg/dL Calcium 8.2 L 8.0 L (8.4-10.2) mg/dL AST 96 H 92 H (14-36) U/L ALT 48 H 46 H (4-34) U/L Total Protein 5.5 L 5.3 L (6.3-8.2) g/dL Albumin 2.8 L 2.8 L (3.5-5.0) g/dL 07/18/21 Range/Units 05:55 WBC (3.8-10.6) k/uL RBC 2.68 L (3.80-5.40) m/uL Hgb 9.2 L (11.4-16.0) gm/dL Hct 26.1 L (34.0-46.0) % RDW 20.1 H (11.5-15.5) % Plt Count 102 L (150-450) k/uL Lymphocytes # 0.7 L (1.0-4.8) k/uL Sodium (137-145) mmol/L Potassium (3.5-5.1) mmol/L BUN (7-17) mg/dL Creatinine (0.52-1.04) mg/dL Glucose (74-99) mg/dL Calcium (8.4-10.2) mg/dL AST (14-36) U/L ALT (4-34) U/L Total Protein (6.3-8.2) g/dL Albumin (3.5-5.0) g/dL Microbiology - Last 24 Hours (Table) 07/16/21 10:09 Urine Culture - Preliminary Urine,Voided Gram Neg Bacilli Assessment and Plan (1) Hepatomegaly Current Visit: Yes Status: Acute Code(s): R16.0 - HEPATOMEGALY, NOT ELSEWHERE CLASSIFIED SNOMED Code(s): 09113709 (2) Alcoholic intoxication Current Visit: Yes Status: Acute Code(s): F10.929 - ALCOHOL USE, UNSPECIFIED WITH INTOXICATION, UNSPECIFIED SNOMED Code(s): 54900478 (3) Acute pancreatitis Current Visit: No Status: Acute Code(s): K85.90 - ACUTE PANCREATITIS WITHOUT NECROSIS OR INFECTION, UNSP SNOMED Code(s): 965536993 (4) Hypokalemia Current Visit: No Status: Acute Code(s): E87.6 - HYPOKALEMIA SNOMED Code(s): 89182166
[2021-07-18] MEDS: MULTIVITAMINS, THERA 1 EACH TAB PO SCH (12:43)
[2021-07-18] MEDS: FOLIC ACID 1 MG TAB PO SCH (12:43)
[2021-07-18] MEDS: MAGNESIUM SULFATE-D5W PMX 1 GM in DEXTROSE/WATER 1 100ML.BAG IVPB SCH ×2 (12:44→14:15)
[2021-07-18] MEDS: traZODone HCL 100 MG TAB PO SCH (21:20)
--- NOTE | 2021-07-19 00:30 | P.PN ---
Subjective Progress Note Date: 07/18/21 07/18/2021 Patient is a 45-year-old female with known history of alcohol abuse admitted to hospital with alcohol intoxication and also complaining of abdominal pain. Currently abdominal pain is resolved now. Patient is able to tolerate oral diet for the first time today. Urine culture showed E. coli and Morganella both are sensitive to ceftriaxone. Patient has been afebrile. Laboratory showed WBC 4.0 hemoglobin 9.2 and platelets 102 Potassium was low yesterday 2.9 which is being replaced.Patient is being monitored for alcohol withdrawal symptoms. Active Medications Generic Name Dose Route Start Last Admin Trade Name Freq PRN Reason Stop Dose Admin Acetaminophen 500 mg 07/16/21 18:07 07/17/21 20:43 Acetaminophen Tab 500 Mg Tab PO 500 mg Q6HR PRN Administration Fever and/ or Pain Albuterol/Ipratropium 3 ml 07/16/21 20:00 07/18/21 19:01 Ipratropium-Albuterol 3 Ml Neb INHALATION 3 ml RT-QID MISAEL Administration Diltiazem HCl 180 mg 07/17/21 09:00 07/18/21 08:29 Diltiazem Cd 180 Mg Cap.Er.24h PO 180 mg DAILY MISAEL Administration Folic Acid 1 mg 07/18/21 12:00 07/18/21 12:43 Folic Acid 1 Mg Tab PO 1 mg DAILY@1200 MISAEL Administration Guaifenesin/Dextromethorphan 10 ml 07/16/21 18:14 07/17/21 04:44 Guaifenesin-Dm 100-10mg/5ml 10 Ml Cup PO 10 ml Q4HR PRN Administration Cough Heparin Sodium (Porcine) 5,000 unit 07/17/21 21:00 07/18/21 21:18 Heparin Sodium,Porcine/Pf 5,000 Unit/0.5 Ml Syringe SQ 5,000 unit Q12HR MISAEL Administration Ceftriaxone Sodium 1 gm/ 50 mls @ 100 mls/hr 07/16/21 11:15 07/18/21 08:30 Sodium Chloride IVPB 100 mls/hr Q24HR MISAEL Administration Potassium Chloride/Sodium Chloride 1,000 mls @ 75 mls/hr 07/17/21 17:00 21:17 Ns-Kcl 40 Meq/L Iv Solution IV Not Given .[id number] MISAEL Lorazepam 1 mg 07/15/21 23:51 07/17/21 17:13 Lorazepam 2 Mg/Ml Inj IV 1 mg Q2HR PRN Administration CIWA 8 or 9 Lorazepam 1 mg 07/15/21 23:51 07/16/21 04:59 Lorazepam 2 Mg/Ml Inj IV 1 mg Q1HR PRN Administration CIWA 10 to 15 Lorazepam 1 mg 07/17/21 16:37 07/18/21 21:20 Lorazepam 1 Mg Tab PO 1 mg Q4H PRN Administration Anxiety Magnesium Oxide 400 mg 07/16/21 21:00 07/18/21 21:19 Magnesium Oxide 400 Mg Tab PO 400 mg BID MISAEL Administration Metoprolol Tartrate 12.5 mg 07/16/21 16:00 07/18/21 21:20 Metoprolol Tartrate 12.5 Mg Tab PO 12.5 mg TID MISAEL Administration Miscellaneous Information 1 each 07/17/21 16:18 Magnesium Replacement Protocol 1 Each Misc MISCELLANE DAILY PRN Per Protocol Protocol Miscellaneous Information 1 each 07/17/21 16:18 Potassium Replacement Protocol 1 Each Misc MISCELLANE DAILY PRN Per Protocol Protocol Multivitamins 1 each 07/18/21 12:00 07/18/21 12:43 Multivitamins, Thera 1 Each Tab PO 1 each DAILY@1200 MISAEL Administration Naloxone HCl 0.2 mg 07/15/21 23:54 Naloxone 0.4 Mg/Ml 1 Ml Vial IV Q2M PRN Opioid Reversal Nicotine 1 patch 07/17/21 09:00 07/18/21 08:30 Nicotine 14mg/24hr Patch TRANSDERM 1 patch DAILY MISAEL Administration Ondansetron HCl 4 mg 07/15/21 23:54 07/16/21 17:53 Ondansetron 4 Mg/2 Ml Vial IVP 4 mg Q8HR PRN Administration Nausea And Vomiting Pantoprazole Sodium 40 mg 07/16/21 09:00 07/18/21 08:29 Pantoprazole 40 Mg/10 Ml Vial IV 40 mg DAILY MISAEL Administration Sertraline HCl 100 mg 07/17/21 09:00 07/18/21 08:29 Sertraline 100 Mg Tab PO 100 mg DAILY MISAEL Administration Thiamine HCl 100 mg 07/16/21 07:30 07/18/21 16:18 Thiamine 100 Mg Tab PO 100 mg BID-W/MEALS MISAEL Administration Tramadol HCl 50 mg 07/16/21 11:09 07/18/21 21:19 Tramadol 50 Mg Tab PO 50 mg TID PRN Administration Pain Trazodone HCl 100 mg 07/17/21 21:00 07/18/21 21:20 Trazodone Hcl 100 Mg Tab PO 100 mg HS MISAEL Administration Objective - Vital Signs Vital signs: Vital Signs Temp 98.6 F 07/18/21 12:13 Pulse 83 07/18/21 12:13 Resp 18 07/18/21 12:13 BP 164/104 07/18/21 12:13 Pulse Ox 93 L 07/18/21 12:13 Intake & Output 07/17/21 07/18/21 07/18/21 18:59 06:59 18:59 Intake Total 600 1535 100 Balance 600 1535 100 Intake: Intake, IV Titration 600 900 100 Amount 0.9% NaCl with KCl 40 Meq 600 900 /l 1,000 ml @ 75 mls/hr IV .[id number] MISAEL Rx#: [id number] Magnesium Sulfate-D5w Pmx 100 1 gm In Dextrose/Water 1 100ml.bag @ 100 mls/hr IVPB Q1H MISAEL Rx#: [id number] Oral 635 Other: # Voids 1 - Exam PHYSICAL EXAMINATION: Patient is lying in the bed comfortably, no acute distress, awake alert and oriented. anxious. HEENT: Normocephalic. Neck is supple. Pupils reactive. Nostrils clear. Oral cavity is moist. Neck reveals no JVD, carotid bruits, or thyromegaly. CHEST EXAMINATION: Trachea is central. Symmetrical expansion. Lung addison clear to auscultation and percussion. CARDIAC: Normal S1, S2 with no gallops. No murmurs ABDOMEN: Soft. Bowel sounds normal. No organomegaly. No abdominal bruits. Extremities: reveal no edema. No clubbing or cyanosis Neurologically awake, alert, oriented x3 with well-coordinated movements. No focal deficits noted Skin: No rash or skin lesions. Psychiatric: Coperative. Nonsuicidal Musculoskeletal: No joint swelling or deformity. Normal range of motion. - Labs CBC & Chem 7: 07/18/21 05:55 07/17/21 17:55 Labs: Abnormal Lab Results - Last 24 Hours (Table) 07/17/21 07/18/21 Range/Units 17:55 05:55 RBC 2.68 L (3.80-5.40) m/uL Hgb 9.2 L (11.4-16.0) gm/dL Hct 26.1 L (34.0-46.0) % RDW 20.1 H (11.5-15.5) % Plt Count 102 L (150-450) k/uL Lymphocytes # 0.7 L (1.0-4.8) k/uL Sodium 133 L (137-145) mmol/L Potassium 2.9 L (3.5-5.1) mmol/L BUN 5 L (7-17) mg/dL Creatinine 0.43 L (0.52-1.04) mg/dL Glucose 147 H (74-99) mg/dL Calcium 8.0 L (8.4-10.2) mg/dL AST 92 H (14-36) U/L ALT 46 H (4-34) U/L Total Protein 5.3 L (6.3-8.2) g/dL Albumin 2.8 L (3.5-5.0) g/dL Microbiology - Last 24 Hours (Table) 07/16/21 10:09 Urine Culture - Final Urine,Voided Escherichia coli Morganella morganii Assessment and Plan Assessment: Acute alcohol withdrawal symptoms and possible DTs. Acute urinary tract infection Altered mental status secondary to acute metabolic encephalopathy improved now Possible nonspecific colitis Hyponatremia Hypokalemia Elevated AST ALT and total alcoholic hepatitis Mild acute pancreatitis likely related to alcohol 9 pancytopenia secondary alcohol use Hypertension History of herniated disc and degenerative disc disease History of smoking Obesity with BMI 34 Plan: Patient will be current on IV hydration encourage oral intake. Continue with P [facility] endocrine with blood pressure medications. Continue DVT and GI prophylaxis. Continue to monitor for alcohol withdrawal symptoms and withdrawal protocol. Replace potassium and repeat CBC and BMP tomorrow. Time with Patient: Greater than 30
[2021-07-19] MEDS: LORazepam 1 MG TAB PO PRN ×5 (02:27→22:19)
[2021-07-19] MEDS: 0.9% NACL WITH KCL 40 MEQ/L 1,000 ML IV SCH ×2 (02:27→15:18)
[2021-07-19 06:25] LABS: Anisocytosis Moderate; Basophils % (A) 1 %; Eosinophils # (A) 0.1 k/uL (0-0.7); Eosinophils % (A) 2 %; HCT 26.4 % (34.0-46.0); HGB 8.9 gm/dL (11.4-16.0); Lymphocytes # (A) 0.7 k/uL (1.0-4.8); Lymphocytes % (A) 24 %; MCH 33.8 pg (25.0-35.0); MCHC 33.9 g/dL (31.0-37.0); MCV 99.5 fL (80.0-100.0); Macrocytosis Moderate; Mean Platelet Volume 8.1; Monocytes # (A) 0.1 k/uL (0-1.0); Monocytes % (A) 4 %; Neutrophils % (A) 66 %; Platelet Count 123 k/uL (150-450); RBC 2.65 m/uL (3.80-5.40); RDW 20.4 % (11.5-15.5)
[2021-07-19] MEDS: IPRATROPIUM-ALBUTEROL 3 ML NEB INHALATION SCH ×4 (07:16→20:01)
[2021-07-19] MEDS: NICOTINE 14MG/24HR PATCH TRANSDERM SCH (08:02)
[2021-07-19] MEDS: THIAMINE 100 MG TAB PO SCH ×2 (08:02→17:01)
[2021-07-19] MEDS: SERTRALINE 100 MG TAB PO SCH (08:02)
[2021-07-19] MEDS: PANTOPRAZOLE 40 MG/10 ML VIAL IV SCH (08:03)
[2021-07-19] MEDS: MAGNESIUM OXIDE 400 MG TAB PO SCH ×2 (08:03→22:18)
[2021-07-19] MEDS: METOPROLOL TARTRATE 12.5 MG TAB PO SCH ×3 (08:03→22:19)
[2021-07-19] MEDS: traMADol 50 MG TAB PO PRN ×2 (08:03→19:09)
[2021-07-19] MEDS: HEPARIN SODIUM,PORCINE/PF 5,000 UNIT/0.5 ML SYRINGE SQ SCH ×2 (08:04→22:18)
[2021-07-19] MEDS: DILTIAZEM CD 180 MG CAP.ER.24H PO SCH (08:06)
[2021-07-19 09:35] LABS: African American GFR (CKD) 137.4 (60.0-200.0); Anion Gap 9.5 mmol/L (4.00-12.00); Calcium 7.6 mg/dL (8.7-10.3); Carbon Dioxide 23.5 mmol/L (21.6-31.8); Non-African American GFR(CKD) 118.5 (60.0-200.0); Potassium 3.9 mmol/L (3.5-5.5)
[2021-07-19] MEDS: FOLIC ACID 1 MG TAB PO SCH (13:02)
[2021-07-19] MEDS: MULTIVITAMINS, THERA 1 EACH TAB PO SCH (13:02)
--- NOTE | 2021-07-19 13:07 | PN ---
PROGRESS NOTE This patient is in for alcohol withdrawal, severe hypokalemia, hyponatremia secondary to dehydration. She is going through a large amount of withdrawal with a large amount shaking of the extremities. She says she has had 4 large bloody bowel movements in a row which is really scaring her. Hemoglobin is down from yesterday at 9.2 to 8.9. We will check this again in the morning, get a surgical consult for possibly EGD and colonoscopy. CARDIOVASCULAR: S1, S2. Lungs clear. GI: She appears to be anxious, nervous, and a large amount of tremor. ASSESSMENT: Gastrointestinal bleeding; unclear etiology. She has esophageal varices. It looks like it is bright red blood, so it might be a lower GI bleed with a colonoscopy being needed and a surgical consult. Continue on CIWA protocol, electrolyte replacement. Monitor hemoglobin. MMODL / IJN: [id number] /
--- NOTE | 2021-07-19 20:18 | P.PN ---
Subjective Progress Note Date: 07/19/21 CHIEF COMPLAINT: Abdominal pain HISTORY OF PRESENT ILLNESS: The patient is a 45-year-old female with alcohol abuse admitted with abdominal pain. She presented with alcohol intoxication. She is tolerating regular diet. She had several bloody bowel movements last night. She reports epigastric pain. ROS: No fevers or chills. No new chest pain. No productive sputum PHYSICAL EXAM: VITAL SIGNS: Reviewed CONSTITUTIONAL: Well developed and in no acute distress. EYES: Conjuctivae without sclera icterus. Extraocular movements grossly intact. HEAD, EARS, NOSE, THROAT: Moist buccal mucosa. Head is atraumatic, normocephalic. Hears conversational speech. No nasal drainage. RESPIRATORY: Non-labored respirations and equal bilateral excursions. CARDIOVASCULAR: Regular rate and rhythm. ABDOMEN: Soft. No peritonitis. Mild tenderness along the epigastrium MUSCULOSKELETAL: No gross deformity of the lower extremities noted. SKIN: Good skin turgor. Well perfused. NEUROLOGIC: Cranial nerves II through XII grossly intact. No focal or lateralizing signs. PSYCH: Appropriate affect. Alert and oriented to person, place and time. CLINICAL LABS: Reviewed. White blood cell count normal. Hgb 8.9 to 9.3 ASSESSMENT: 1. Abdominal pain 2. Leukopenia, resolved 3. Hypokalemia 4. Alcohol abuse disorder with alcohol intoxication 5. Hepatomegaly 6. Anemia. PLAN: 1. She has new anemia with blood bowel movements. 2. Recommend upper and lower endoscopy for anemia. Objective - Vital Signs Vital signs: Vital Signs Temp 98.2 F 07/19/21 12:42 Pulse 72 07/19/21 16:03 Resp 19 07/19/21 12:42 BP 141/96 07/19/21 12:42 Pulse Ox 96 07/19/21 12:42 Intake & Output 07/19/21 07/19/21 07/20/21 06:59 18:59 06:59 Intake Total 1000 Balance 1000 Intake: Intake, IV Titration 1000 Amount 0.9% NaCl with KCl 40 Meq 900 /l 1,000 ml @ 75 mls/hr IV .[id number] MISAEL Rx#: [id number] Magnesium Sulfate-D5w Pmx 100 1 gm In Dextrose/Water 1 100ml.bag @ 100 mls/hr IVPB Q1H MISAEL Rx#: [id number] Other: Voiding Method Toilet Toilet # Voids 1 - Labs CBC & Chem 7: 07/19/21 05:16 07/19/21 05:16 Labs: Abnormal Lab Results - Last 24 Hours (Table) 07/19/21 07/19/21 Range/Units 05:16 05:16 WBC 3.0 L (3.8-10.6) k/uL RBC 2.65 L (3.80-5.40) m/uL Hgb 8.9 L (11.4-16.0) gm/dL Hct 26.4 L (34.0-46.0) % RDW 20.4 H (11.5-15.5) % Plt Count 123 L (150-450) k/uL Lymphocytes # 0.7 L (1.0-4.8) k/uL Chloride 110 H (96-109) mmol/L Creatinine 0.5 L (0.6-1.5) mg/dL Calcium 7.6 L (8.7-10.3) mg/dL Assessment and Plan (1) Hepatomegaly Current Visit: Yes Status: Acute Code(s): R16.0 - HEPATOMEGALY, NOT ELSEWHERE CLASSIFIED SNOMED Code(s): 06741742 (2) Alcoholic intoxication Current Visit: Yes Status: Acute Code(s): F10.929 - ALCOHOL USE, UNSPECIFIED WITH INTOXICATION, UNSPECIFIED SNOMED Code(s): 67955668 (3) Acute pancreatitis Current Visit: No Status: Acute Code(s): K85.90 - ACUTE PANCREATITIS WITHOUT NECROSIS OR INFECTION, UNSP SNOMED Code(s): 387498820 (4) Hypokalemia Current Visit: No Status: Acute Code(s): E87.6 - HYPOKALEMIA SNOMED Code(s): 94664158 (5) Anemia Current Visit: Yes Status: Acute Code(s): D64.9 - ANEMIA, UNSPECIFIED SNOMED Code(s): 148123742
[2021-07-19] MEDS: traZODone HCL 100 MG TAB PO SCH (22:19)
[2021-07-20] MEDS: 0.9% NACL WITH KCL 40 MEQ/L 1,000 ML IV SCH ×3 (01:23→20:00)
[2021-07-20] MEDS: LORazepam 1 MG TAB PO PRN ×5 (04:34→21:38)
[2021-07-20] MEDS: traMADol 50 MG TAB PO PRN ×3 (06:12→21:38)
[2021-07-20 07:00] LABS: Anisocytosis Moderate; Basophils % (A) 0 %; Eosinophils # (A) 0.1 k/uL (0-0.7); Eosinophils % (A) 2 %; HCT 28.1 % (34.0-46.0); HGB 9.2 gm/dL (11.4-16.0); Lymphocytes # (A) 0.8 k/uL (1.0-4.8); Lymphocytes % (A) 19 %; MCH 32.9 pg (25.0-35.0); MCHC 32.8 g/dL (31.0-37.0); MCV 100.2 fL (80.0-100.0); Macrocytosis Moderate; Mean Platelet Volume 7.4; Monocytes # (A) 0.2 k/uL (0-1.0); Monocytes % (A) 4 %; Neutrophils % (A) 72 %; Platelet Count 166 k/uL (150-450); RBC 2.81 m/uL (3.80-5.40); RDW 20.3 % (11.5-15.5); WBC 4.2 k/uL (3.8-10.6)
[2021-07-20] MEDS: IPRATROPIUM-ALBUTEROL 3 ML NEB INHALATION SCH ×4 (07:17→18:41)
[2021-07-20] MEDS: THIAMINE 100 MG TAB PO SCH ×2 (08:57→16:19)
[2021-07-20] MEDS: METOPROLOL TARTRATE 12.5 MG TAB PO SCH ×3 (08:57→21:38)
[2021-07-20] MEDS: DILTIAZEM CD 180 MG CAP.ER.24H PO SCH (08:57)
[2021-07-20] MEDS: NICOTINE 14MG/24HR PATCH TRANSDERM SCH (08:57)
[2021-07-20] MEDS: HEPARIN SODIUM,PORCINE/PF 5,000 UNIT/0.5 ML SYRINGE SQ SCH ×3 (08:57→21:37)
[2021-07-20] MEDS: MAGNESIUM OXIDE 400 MG TAB PO SCH ×2 (08:57→21:38)
[2021-07-20] MEDS: PANTOPRAZOLE 40 MG/10 ML VIAL IV SCH (08:58)
[2021-07-20] MEDS: SERTRALINE 100 MG TAB PO SCH (08:58)
[2021-07-20] MEDS: SODIUM FERRIC GLUCONAT-SUCROSE 125 MG in SODIUM CHLORIDE 0.9% 100 ML IVPB SCH (09:51)
[2021-07-20 11:50] LABS: African American GFR (CKD) 137.4 (60.0-200.0); Albumin 3.3 g/dL (3.80-4.90); Albumin/Globulin Ratio 1.5 (1.60-3.17); Anion Gap 7.1 mmol/L (4.00-12.00); Calcium 8.2 mg/dL (8.7-10.3); Carbon Dioxide 22.9 mmol/L (21.6-31.8); Globulin 2.2 g/dL (1.6-3.3); Non-African American GFR(CKD) 118.5 (60.0-200.0); Potassium 4.3 mmol/L (3.5-5.5); Total Bilirubin 0.3 mg/dL (0.2-1.2); Total Protein 5.5 g/dL (6.2-8.2)
[2021-07-20] MEDS: FOLIC ACID 1 MG TAB PO SCH (13:19)
[2021-07-20] MEDS: MULTIVITAMINS, THERA 1 EACH TAB PO SCH (13:19)
[2021-07-20 14:10] LABS: % Iron Saturation 14.03 (12.00-45.00)
[2021-07-20 14:18] LABS: Ferritin 129.6 ng/mL (10.0-291.0)
--- NOTE | 2021-07-20 14:50 | P.PN ---
Subjective Progress Note Date: 07/20/21 CHIEF COMPLAINT: Abdominal pain HISTORY OF PRESENT ILLNESS: Patient is in the hospital with abdominal pain and alcohol intoxication. Patient is having bloody bowel movements. She had a computed tomography scan of the abdomen and pelvis showing mild wall thickening of the right colon reflective nonspecific colitis. She reports a slight decrease in her epigastric pain. She denies any nausea or vomiting. Afebrile. WBC 4.2 hemoglobin up from 8.9-9.2 and is currently in a full liquid diet. Patient is receiving IV iron. PHYSICAL EXAM: VITAL SIGNS: Reviewed. GENERAL: Well-developed in no acute distress. HEENT: No sclera icterus. Extraocular movements grossly intact. Moist buccal mucosa. Head is atraumatic, normocephalic. ABDOMEN: Soft. Nondistended. Epigastric tenderness NEUROLOGIC: Alert and oriented. Cranial nerves II through XII grossly intact. ASSESSMENT: 1. Abdominal pain 2. Leukopenia, resolved 3. Hypokalemia 4. Alcohol abuse disorder with alcohol intoxication 5. Hepatomegaly 6. Anemia 7. Computed tomography scan with mild wall thickening of the right colon PLAN: -Patient seen by GI service they are planning for colonoscopy tomorrow -Continue supportive care -Continue monitoring hemoglobin Physician Nicker note has been reviewed by physician. Signing provider agrees with the documented findings, assessment, and plan of care. Objective - Vital Signs Vital signs: Vital Signs Temp 98.1 F 07/20/21 11:15 Pulse 75 07/20/21 11:15 Resp 20 07/20/21 11:15 BP 161/100 07/20/21 11:15 Pulse Ox 91 L 07/20/21 11:15 Intake & Output 07/19/21 07/20/21 07/20/21 18:59 06:59 18:59 Intake Total 1200 Balance 1200 Intake: Intake, IV Titration 900 Amount 0.9% NaCl with KCl 40 Meq 900 /l 1,000 ml @ 75 mls/hr IV .[id number] MISAEL Rx#: [id number] Oral 300 Other: Voiding Method Toilet Toilet Toilet # Voids 1 1 - Labs CBC & Chem 7: 07/20/21 06:19 07/20/21 06:19 Labs: Abnormal Lab Results - Last 24 Hours (Table) 07/20/21 07/20/21 07/20/21 Range/Units 06:19 06:19 06:19 RBC 2.81 L (3.80-5.40) m/uL Hgb 9.2 L (11.4-16.0) gm/dL Hct 28.1 L (34.0-46.0) % MCV 100.2 H (80.0-100.0) fL RDW 20.3 H (11.5-15.5) % Lymphocytes # 0.8 L (1.0-4.8) k/uL Chloride 111 H (96-109) mmol/L Creatinine 0.5 L (0.6-1.5) mg/dL Calcium 8.2 L (8.7-10.3) mg/dL Iron 39 L (50-170) ug/dL AST 46 H (13-35) U/L Alkaline Phosphatase 142 H (41-126) U/L Total Protein 5.5 L (6.2-8.2) g/dL Albumin 3.30 L (3.80-4.90) g/dL Albumin/Globulin Ratio 1.50 L (1.60-3.17) g/dL
[2021-07-20 15:18] LABS: Folate, Serum 12.7 ng/mL
--- NOTE | 2021-07-20 15:19 | P.CONS ---
History of Present Illness - Reason for Consult Consult date: 07/20/21 GI bleed Requesting physician: Josef Carlson - Chief Complaint ETOH intoxication - History of Present Illness This is 45-year-old female with a significant history of alcohol abuse and intoxication. She presented to the emergency department 5 days ago with alcohol intoxication. Patient apparently was reporting some abdominal pain, she underwent a CT of the abdomen that showed mild wall thickening of the right hemicolon which may reflect a nonspecific colitis, hepatomegaly with underlying hepatic steatosis. Patient reports having multiple episodes of bright red blood in her stool. She denies any nausea or vomiting. She has not had a previous EGD or colonoscopy in the past. She is currently on Rocephin. On admission hemoglobin was 8.9, today repeat hemoglobin was 9.2, hematocrit 28, platelet count 166,000, total bilirubin 0.3, AST 46, ALT 44, platelet phosphatase 142. Review of Systems REVIEW OF SYSTEMS: CARDIOPULMONARY: No chest pain or shortness of breath. Gastrointestinal: Diffuse abdominal pain.. No nausea or vomiting. No hematemesis, coffee-ground emesis. Bright red blood per rectum. GENITOURINARY: No dysuria or hematuria. MUSCULOSKELETAL: Reports normal range of motion., Joint pain. SKIN: No rashes. No jaundice. ENDOCRINE: No chills, fevers. No excessive weight gain or loss. No polydipsia or polyuria. PSYCHIATRIC: Unremarkable. NEUROLOGY: No change in mental status. Denies dizziness, headache. History of alcohol abuse ENT: Vision unremarkable. CONSTITUTIONAL: No recent weight loss. No fever, chills, night sweats. Past Medical History Past Medical History: Hypertension Additional Past Medical History / Comment(s): Herniated Disk. History of Any Multi-Drug Resistant Organisms: None Reported Past Surgical History: Appendectomy, Orthopedic Surgery Additional Past Surgical History / Comment(s): titanium wrist, Exploratory surgery. Past Anesthesia/Blood Transfusion Reactions: No Reported Reaction Past Psychological History: No Psychological Hx Reported Smoking Status: Former smoker Past Alcohol Use History: Abuse, Daily, Heavy Additional Past Alcohol Use History / Comment(s): Pt states she quit smoking almost 1 year ago. Patient states she drinks 1/5 per day. Patient is currently homeless Past Drug Use History: None Reported - Past Family History Father Family Medical History: Osteoarthritis (OA) Medications and Allergies Home Medications Medication Instructions Recorded Confirmed Type Ibuprofen [Motrin] 800 mg PO BID 07/14/20 07/16/21 History traMADol HCl [Ultram] 50 mg PO TID PRN 07/14/20 07/16/21 History Diltiazem Cd [Cardizem CD] 180 mg PO DAILY 30 Days #30 03/31/21 07/16/21 Rx cap.er.24h Sertraline [Zoloft] 100 mg PO DAILY 30 Days #30 tab 03/31/21 07/16/21 Rx Magnesium Oxide [Mag-Ox] 400 mg PO BID 30 Days #60 tab 06/09/21 07/16/21 Rx Metoprolol Tartrate [Lopressor] 12.5 mg PO TID 90 Days #180 tab 06/09/21 07/16/21 Rx Nicotine 14Mg/24Hr Patch [Habitrol] 1 patch TRANSDERM DAILY 30 Days 06/09/21 07/16/21 Rx #30 patch Pantoprazole [Protonix] 40 mg PO AC-BID 30 Days #60 06/09/21 07/16/21 Rx tablet. traZODone HCL [Desyrel] 100 mg PO HS 30 Days #30 tab 06/09/21 07/16/21 Rx Allergies Allergy/AdvReac Type Severity Reaction Status Date / Time Penicillins Allergy Unknown Verified 07/16/21 07:12 Childhood Physical Exam Vitals: Vital Signs Temp Pulse Pulse Pulse Pulse Resp BP 07/20/21 08:09 98.6 F 74 17 182/108 07/20/21 08:00 98.6 F 74 17 182/108 07/20/21 04:45 98 F 65 20 07/19/21 19:45 98.5 F 79 20 156/96 07/19/21 19:09 20 07/19/21 16:03 72 07/19/21 15:53 72 07/19/21 12:42 98.2 F 80 19 141/96 BP Pulse Ox 07/20/21 08:09 07/20/21 08:00 97 07/20/21 04:45 167/97 95 07/19/21 19:45 98 07/19/21 19:09 07/19/21 16:03 07/19/21 15:53 07/19/21 12:42 96 Intake and Output 07/19/21 07/20/21 07/20/21 22:59 06:59 14:59 Intake Total 200 1000 Balance 200 1000 Intake: Intake, IV Titration 900 Amount 0.9% NaCl with KCl 40 Meq 900 /l 1,000 ml @ 75 mls/hr IV .[id number] MISAEL Rx#: [id number] Oral 200 100 Other: Voiding Method Toilet # Voids 1 1 General appearance: The patient is alert, oriented, appears in no acute distress. HET: Head is normocephalic and atraumatic. Conjunctiva pink. Sclera anicteric. Neck: Supple without lymphadenopathy. Trachea midline. Heart: S1 S2. Regular rate and rhythm. Lungs: Clear to auscultation. Abdomen: Soft, diffuse tenderness, nondistended with bowel sounds. No guarding or rigidity. Skin: No rashes. No jaundice. Extremities: Normal skin color and turgor. No pedal edema. Neurological: No focal deficits. Alert and oriented 3.. Results CBC & Chem 7: 07/20/21 06:19 07/20/21 06:19 Labs: Abnormal Lab Results - Last 24 Hours (Table) 07/20/21 Range/Units 06:19 RBC 2.81 L (3.80-5.40) m/uL Hgb 9.2 L (11.4-16.0) gm/dL Hct 28.1 L (34.0-46.0) % MCV 100.2 H (80.0-100.0) fL RDW 20.3 H (11.5-15.5) % Lymphocytes # 0.8 L (1.0-4.8) k/uL CT scan - pelvis: report reviewed (See HPI for details) Assessment and Plan (1) GI bleed Narrative/Plan: 45-year-old female who presented to the emergency department 5 days ago with alcohol intoxication. Patient has significant history of alcohol abuse and intoxication. She is admitting to drinking a pint a day. She has been drinking for several years. She had abdominal pain and underwent a CT of the abdomen that showed possible nonspecific colitis. Patient is complaining of lower abdo neville pain and some diffuse epigastric pain. She has been having multiple episodes of bright red blood per rectum. She denies any previous history of EGD or colonoscopy. Denies any previous history of GI bleed. Iron studies ordered, patient has mild iron deficiency anemia. Possible etiologies include infectious, inflammatory, or ischemic colitis. Other etiologies include AVM, diverticular bleed, or other possible etiology. Will proceed with colonoscopy tomorrow. Current Visit: Yes Status: Acute Code(s): K92.2 - GASTROINTESTINAL HEMORRHAGE, UNSPECIFIED SNOMED Code(s): 62837246 (2) Alcohol abuse Current Visit: Yes Status: Acute Code(s): F10.10 - ALCOHOL ABUSE, UNCOMPLICATED SNOMED Code(s): 20577169 (3) Alcoholic intoxication Current Visit: Yes Status: Acute Code(s): F10.929 - ALCOHOL USE, UNSPECIFIED WITH INTOXICATION, UNSPECIFIED SNOMED Code(s): 82232463 Plan: 1. Continue symptomatic and supportive care 2. Clear liquid diet, nothing by mouth after midnight 3. Bowel prep this afternoon 4. Proceed with colonoscopy tomorrow, procedure discussed with patient in detail including risks and benefits. Patient is willing to proceed. 5. Daily CBC, transfuse for hemoglobin less than 7 Thank you for this consultation, we'll continue to follow. Dr. Lisset Connors I agree with the dictator's note, documented as a scribe by Cami Arvizu.
[2021-07-20] MEDS ORDERED: PEG 3350-NA SULF,BICARB,CL/KCL 4,000 ML BOTTLE PO ONE (16:00)
[2021-07-20] MEDS: traZODone HCL 100 MG TAB PO SCH (21:38)
[2021-07-21] MEDS: LORazepam 1 MG TAB PO PRN ×5 (01:05→21:46)
[2021-07-21] MEDS: traMADol 50 MG TAB PO PRN ×3 (05:17→20:50)
--- NOTE | 2021-07-21 05:46 | PN ---
PROGRESS NOTE 45-year-old white female, alcohol abuse, altered mental status. She is sitting up in bed, taking her prep for the colonoscopy. She is going to get tomorrow for GI bleeding. Cardiovascular: S1, S2. Lungs clear. GI soft. Hematology negative Homans. ASSESSMENT: 1. Alcohol withdrawal. 2. Altered mental status. 3. GI bleed. 4. Alcoholism. 5. Depression. 6. Osteoarthritis wrist. PROGNOSIS: Guarded. Follow up after colonoscopy tomorrow for possible discharge or go to the rehab center. MMODL / IJN: [id number] /
[2021-07-21] MEDS: IPRATROPIUM-ALBUTEROL 3 ML NEB INHALATION SCH ×4 (08:24→20:28)
[2021-07-21] MEDS: DILTIAZEM CD 180 MG CAP.ER.24H PO SCH (09:43)
[2021-07-21] MEDS: THIAMINE 100 MG TAB PO SCH ×2 (09:43→17:22)
[2021-07-21] MEDS: MULTIVITAMINS, THERA 1 EACH TAB PO SCH (09:43)
[2021-07-21] MEDS: SERTRALINE 100 MG TAB PO SCH (09:43)
[2021-07-21] MEDS: 0.9% NACL WITH KCL 40 MEQ/L 1,000 ML IV SCH (09:43)
[2021-07-21] MEDS: FOLIC ACID 1 MG TAB PO SCH (09:44)
[2021-07-21] MEDS: MAGNESIUM OXIDE 400 MG TAB PO SCH ×2 (09:44→20:43)
[2021-07-21] MEDS: METOPROLOL TARTRATE 12.5 MG TAB PO SCH ×3 (09:44→20:44)
[2021-07-21] MEDS: NICOTINE 14MG/24HR PATCH TRANSDERM SCH (09:44)
[2021-07-21] MEDS: PANTOPRAZOLE 40 MG/10 ML VIAL IV SCH (09:44)
[2021-07-21] MEDS: HEPARIN SODIUM,PORCINE/PF 5,000 UNIT/0.5 ML SYRINGE SQ SCH ×2 (09:44→20:43)
[2021-07-21] MEDS: SODIUM FERRIC GLUCONAT-SUCROSE 125 MG in SODIUM CHLORIDE 0.9% 100 ML IVPB SCH (10:33)
[2021-07-21] MEDS ORDERED: PROPOFOL 10 MG/ML 20 ML VIAL IV ONE (11:39)
[2021-07-21] MEDS ORDERED: LACTATED RINGERS 1,000 ML IV ONE (11:40)
[2021-07-21] MEDS ORDERED: IV FLUID CONTINUATION 1,000 ML IV ONE (11:40)
--- NOTE | 2021-07-21 11:58 | P.PCN ---
Date of Procedure: 07/21/21 Procedure(s) Performed: BRIEF HISTORY: Patient is a 45-year-old pleasant white female admitted hospital with acute alcohol intoxication and has been having rectal bleeding for the last 3 days. She is scheduled for colonoscopy to evaluate further. PROCEDURE PERFORMED: Colonoscopy with cold biopsy PREOPERATIVE DIAGNOSIS: rectal bleeding for 3 days' duration. IV sedation per Anesthesia. PROCEDURE: After informed consent was obtained, the patient, was brought into the endoscopy unit. IV sedation was administered by Anesthesia under continuous monitoring. Digital rectal examination was normal. Initially the Olympus CF-160 flexible video colonoscope was then inserted in the rectum, gradually advanced into the cecum without any difficulty. Careful examination was performed as the scope was gradually being withdrawn. Ileocecal valve and the appendiceal orifice were visualized and appeared normal. Prep was excellent. Mucosa of the cecum, ascending colon, transverse colonappeared normal. The descending colon there was a 3 mm polyp that was removed by cold biopsy. , descending colon, sigmoid colon, and rectum appeared normal. Retroflexion was performed in the rectum and grade 2 internal hemorrhoidse seen. The patient tolerated the procedure well. IMPRESSION: 3 mm descending colon polyp status post removal by cold biopsy Grade 2 internal hemorrhoids. RECOMMENDATIONS: Findings of this examination were discussed with the patient. She was advised to be a high-fiber diet and take fiber supplements a regular basis..The biopsy reveals adenoma she can have a repeat colonoscopy in 5 years.
[2021-07-21 12:03] VITALS: BMI 35.9
--- NOTE | 2021-07-21 14:37 | P.PN ---
Subjective Progress Note Date: 07/21/21 CHIEF COMPLAINT: Abdominal pain HISTORY OF PRESENT ILLNESS: Patient is in the hospital with abdominal pain and alcohol intoxication. Per nursing staff patient no longer having bloody bowel movements. Abdominal pain is better. She underwent colonoscopy today with Dr. León. Results showed a 3 mm descending colon polyp status post removal by cold biopsy and grade 2 internal hemorrhoids. Afebrile no new labs PHYSICAL EXAM: VITAL SIGNS: Reviewed. GENERAL: Well-developed in no acute distress. HEENT: No sclera icterus. Extraocular movements grossly intact. Moist buccal mucosa. Head is atraumatic, normocephalic. ABDOMEN: Soft. Nondistended. Epigastric tenderness NEUROLOGIC: Alert and oriented. Cranial nerves II through XII grossly intact. ASSESSMENT: 1. Abdominal pain improving 2. Leukopenia, resolved 3. Hypokalemia resolved 4. Alcohol abuse disorder with alcohol intoxication 5. Hepatomegaly 6. Anemia 7. Computed tomography scan with mild wall thickening of the right colon status post colonoscopy with results showing a 3 mm descending colon polyp and grade 2 internal hemorrhoids PLAN: -No surgical intervention planned -Continue supportive care Physician Sorter Packer note has been reviewed by physician. Signing provider agrees with the documented findings, assessment, and plan of care. Objective - Vital Signs Vital signs: Vital Signs Temp 97.7 F 07/21/21 12:19 Pulse 84 07/21/21 12:19 Resp 16 07/21/21 12:19 BP 137/92 07/21/21 12:19 Pulse Ox 94 L 07/21/21 12:19 Intake & Output 07/20/21 07/21/21 07/21/21 18:59 06:59 18:59 Intake Total 1720 1260 100 Output Total 0 Balance 1720 1260 100 Weight 101 kg Intake: IV 100 Intake, IV Titration 1000 900 Amount 0.9% NaCl with KCl 40 Meq 900 900 /l 1,000 ml @ 75 mls/hr IV .[id number] [facility] Rx#: [id number] Sodium Ferric Gluconat- 100 Sucrose 125 mg In Sodium Chloride 0.9% 100 ml @ 100 mls/hr IVPB DAILY [facility] Rx#:[id number] Oral 720 360 Output: Urine 0 Other: Voiding Method Toilet Toilet Toilet # Voids 6 2 # Bowel Movements 2 - Labs CBC & Chem 7: 07/20/21 06:19 07/20/21 06:19 Labs: Abnormal Lab Results - Last 24 Hours (Table) 07/20/21 Range/Units 06:19 Vitamin B12 1398.0 H (200.0-944.0) pg/mL
[2021-07-21] MEDS: traZODone HCL 100 MG TAB PO SCH (20:44)
[2021-07-22] MEDS: 0.9% NACL WITH KCL 40 MEQ/L 1,000 ML IV SCH ×2 (01:35→15:35)
[2021-07-22] MEDS: LORazepam 1 MG TAB PO PRN ×5 (01:43→19:52)
--- NOTE | 2021-07-22 05:09 | PN ---
PROGRESS NOTE 45-year-old white female, no chest pain shortness of breath. No lightheadedness, dizziness, syncope. She is sitting up in bed. Cardiovascular: S1, S2. Lungs clear. GI soft. Hematology negative Homans. ASSESSMENT: 1. Alcohol withdrawal. 2. Depression. 3. Status post colonoscopy with colon biopsy. 4. Prognosis guarded. Follow up in next 24 to 48 hours for possible discharge to rehab center. MMODL / IJN: [id number] /
[2021-07-22 06:01] LABS: Anisocytosis Slight; Basophils % (A) 1 %; Eosinophils # (A) 0.1 k/uL (0-0.7); Eosinophils % (A) 1 %; HCT 29.6 % (34.0-46.0); HGB 9.9 gm/dL (11.4-16.0); Lymphocytes % (A) 27 %; MCH 33.5 pg (25.0-35.0); MCHC 33.4 g/dL (31.0-37.0); MCV 100.4 fL (80.0-100.0); Macrocytosis Moderate; Monocytes # (A) 0.3 k/uL (0-1.0); Monocytes % (A) 9 %; Neutrophils # (A) 2.1 k/uL (1.3-7.7); Neutrophils % (A) 59 %; Platelet Count 265 k/uL (150-450); RBC 2.95 m/uL (3.80-5.40); RDW 19.1 % (11.5-15.5); WBC 3.6 k/uL (3.8-10.6)
[2021-07-22] MEDS: NICOTINE 14MG/24HR PATCH TRANSDERM SCH (07:38)
[2021-07-22] MEDS: SERTRALINE 100 MG TAB PO SCH (07:38)
[2021-07-22] MEDS: THIAMINE 100 MG TAB PO SCH ×2 (07:38→18:02)
[2021-07-22] MEDS: DILTIAZEM CD 180 MG CAP.ER.24H PO SCH (07:38)
[2021-07-22] MEDS: MAGNESIUM OXIDE 400 MG TAB PO SCH ×2 (07:38→21:55)
[2021-07-22] MEDS: METOPROLOL TARTRATE 12.5 MG TAB PO SCH ×3 (07:38→21:54)
[2021-07-22] MEDS: PANTOPRAZOLE 40 MG/10 ML VIAL IV SCH (07:38)
[2021-07-22] MEDS: HEPARIN SODIUM,PORCINE/PF 5,000 UNIT/0.5 ML SYRINGE SQ SCH ×3 (07:38→23:35)
[2021-07-22] MEDS: traMADol 50 MG TAB PO PRN ×3 (07:46→21:56)
[2021-07-22] MEDS: SODIUM FERRIC GLUCONAT-SUCROSE 125 MG in SODIUM CHLORIDE 0.9% 100 ML IVPB SCH (09:01)
[2021-07-22] MEDS: IPRATROPIUM-ALBUTEROL 3 ML NEB INHALATION SCH ×4 (09:14→19:25)
[2021-07-22 09:44] LABS: Albumin 3.5 g/dL (3.80-4.90); Albumin/Globulin Ratio 1.59 (1.60-3.17); Anion Gap 8.5 mmol/L (4.00-12.00); BUN/Creat Ratio 15.71 Ratio (12.00-20.00); Calcium 8.4 mg/dL (8.7-10.3); Carbon Dioxide 22.5 mmol/L (21.6-31.8); Globulin 2.2 g/dL (1.6-3.3); Non-African American GFR(CKD) 106.1 (60.0-200.0); Potassium 4.7 mmol/L (3.5-5.5); Total Bilirubin 0.3 mg/dL (0.3-1.2); Total Protein 5.7 g/dL (6.2-8.2)
--- NOTE | 2021-07-22 12:45 | P.PN ---
Subjective Progress Note Date: 07/22/21 Principal diagnosis: GI bleed 45-year-old patient who came in with alcohol intoxication with known history of alcohol abuse. Patient then was reporting bright red blood in her stool. Yesterday she underwent a colonoscopy with findings of descending colon polyp status post removal with cold biopsy, grade 2 internal hemorrhoids. The patient is seen and examined today, she states she is feeling better. She denies having any bowel movements today denies any rectal bleeding. She has no abdominal pain, nausea, or vomiting. Hemoglobin is stable at 9.9 Objective - Vital Signs Vital signs: Vital Signs Temp 98.5 F 07/22/21 04:24 Pulse 73 07/22/21 04:24 Resp 16 07/22/21 04:24 BP 145/88 07/22/21 04:24 Pulse Ox 94 L 07/22/21 04:24 Intake & Output 07/21/21 07/22/21 07/22/21 18:59 06:59 18:59 Intake Total 1650 590 Output Total 0 Balance 1650 590 Weight 101 kg Intake: IV 100 Intake, IV Titration 750 Amount 0.9% NaCl with KCl 40 Meq 600 /l 1,000 ml @ 75 mls/hr IV .[id number] [facility] Rx#: [id number] Sodium Ferric Gluconat- 100 Sucrose 125 mg In Sodium Chloride 0.9% 100 ml @ 100 mls/hr IVPB DAILY [facility] Rx#:[id number] cefTRIAXone 1 gm In 50 Sodium Chloride 0.9% 50 ml @ 100 mls/hr IVPB Q24HR [facility] Rx#:[id number] Oral 800 590 Output: Urine 0 Other: Voiding Method Toilet Toilet # Voids 3 - Exam General appearance: The patient is alert, oriented, appears in no acute distress. HET: Head is normocephalic and atraumatic. Conjunctiva pink. Sclera anicteric. Neck: Supple without lymphadenopathy. Abdomen: Soft, nontender, nondistended with bowel sounds. No guarding or rigidity. Extremities: Normal skin color and turgor. No pedal edema Skin: No rashes, no jaundice Neurological: No focal deficits. Alert and oriented 3. - Labs CBC & Chem 7: 07/22/21 05:14 07/22/21 05:14 Labs: Abnormal Lab Results - Last 24 Hours (Table) 07/22/21 Range/Units 05:14 WBC 3.6 L (3.8-10.6) k/uL RBC 2.95 L (3.80-5.40) m/uL Hgb 9.9 L (11.4-16.0) gm/dL Hct 29.6 L (34.0-46.0) % MCV 100.4 H (80.0-100.0) fL RDW 19.1 H (11.5-15.5) % Assessment and Plan (1) GI bleed Narrative/Plan: 45-year-old female who presented to the emergency department 5 days ago with alcohol intoxication. Patient has significant history of alcohol abuse and intoxication. She is admitting to drinking a pint a day. She has been drinking for several years. She had abdominal pain and underwent a CT of the abdomen that showed possible nonspecific colitis. Patient is complaining of lower abdominal pain and some diffuse epigastric pain. She has been having multiple episodes of bright red blood per rectum. She denies any previous history of EGD or colonoscopy. Denies any previous history of GI bleed. Iron studies ordered, patient has mild iron deficiency anemia. Possible etiologies include infectious, inflammatory, or ischemic colitis. Other etiologies include AVM, diverticular bleed, or other possible etiology. Will proceed with colonoscopy tomorrow. She is status post colonoscopy with findings of the descending colon polyp status post removal and biopsy, grade 2 internal hemorrhoids Current Visit: Yes Status: Acute Code(s): K92.2 - GASTROINTESTINAL HEMORRHAGE, UNSPECIFIED SNOMED Code(s): 08471324 (2) Alcohol abuse Current Visit: Yes Status: Acute Code(s): F10.10 - ALCOHOL ABUSE, UNCOMPLICATED SNOMED Code(s): 62782784 (3) Alcoholic intoxication Current Visit: Yes Status: Acute Code(s): F10.929 - ALCOHOL USE, UNSPECIFIED WITH INTOXICATION, UNSPECIFIED SNOMED Code(s): 61335977 Plan: 1. Continue symptomatic and supportive care 2. High fiber diet 3. Patient is status post colonoscopy, findings of colon polyp and grade 2 internal hemorrhoids. Likely bleeding related to hemorrhoids. 4. Recommend high-fiber diet and fiber supplements, repeat colonoscopy in 5 years 5. Strongly encourage alcohol abstinence Thank you for this consultation, we will sign off at this time Dr. Lisset Connors I agree with the dictator's note, documented as a scribe by Cami Arvizu.
[2021-07-22] MEDS: FOLIC ACID 1 MG TAB PO SCH (13:25)
[2021-07-22] MEDS: MULTIVITAMINS, THERA 1 EACH TAB PO SCH (13:25)
--- NOTE | 2021-07-22 14:45 | P.PN ---
Subjective Progress Note Date: 07/22/21 CHIEF COMPLAINT: Abdominal pain HISTORY OF PRESENT ILLNESS: Patient is in the hospital with abdominal pain and alcohol intoxication. Patient reports feeling better today. He states that her abdominal pain is feeling better. She has mild tenderness in the epigastric area. She's had no further bloody bowel movements. Denies any nausea or vomiting. She underwent colonoscopy with Dr. Connors. Results showed a 3 mm descending colon polyp status post removal by cold biopsy and grade 2 internal hemorrhoids. Afebrile WBC 3.16 will 9.9 PHYSICAL EXAM: VITAL SIGNS: Reviewed. GENERAL: Well-developed in no acute distress. HEENT: No sclera icterus. Extraocular movements grossly intact. Moist buccal mucosa. Head is atraumatic, normocephalic. ABDOMEN: Soft. Nondistended. Epigastric tenderness NEUROLOGIC: Alert and oriented. Cranial nerves II through XII grossly intact. ASSESSMENT: 1. Abdominal pain improving 2. Leukopenia, resolved 3. Hypokalemia resolved 4. Alcohol abuse disorder with alcohol intoxication 5. Hepatomegaly 6. Anemia 7. Computed tomography scan with mild wall thickening of the right colon status post colonoscopy with results showing a 3 mm descending colon polyp and grade 2 internal hemorrhoids PLAN: -No surgical intervention planned -Continue supportive care -Patient can be discharged from surgical standpoint when cleared medically Physician Disability Insurance Claim Examiner note has been reviewed by physician. Signing provider agrees with the documented findings, assessment, and plan of care. Objective - Vital Signs Vital signs: Vital Signs Temp 98.5 F 07/22/21 14:00 Pulse 97 07/22/21 14:00 Resp 16 07/22/21 14:00 BP 130/85 07/22/21 14:00 Pulse Ox 95 07/22/21 14:00 Intake & Output 07/21/21 07/22/21 07/22/21 18:59 06:59 18:59 Intake Total 1650 590 Output Total 0 Balance 1650 590 Weight 101 kg Intake: IV 100 Intake, IV Titration 750 Amount 0.9% NaCl with KCl 40 Meq 600 /l 1,000 ml @ 75 mls/hr IV .[id number] [facility] Rx#: [id number] Sodium Ferric Gluconat- 100 Sucrose 125 mg In Sodium Chloride 0.9% 100 ml @ 100 mls/hr IVPB DAILY [facility] Rx#:[id number] cefTRIAXone 1 gm In 50 Sodium Chloride 0.9% 50 ml @ 100 mls/hr IVPB Q24HR [facility] Rx#:[id number] Oral 800 590 Output: Urine 0 Other: Voiding Method Toilet Toilet # Voids 3 2 - Labs CBC & Chem 7: 07/22/21 05:14 07/22/21 05:14 Labs: Abnormal Lab Results - Last 24 Hours (Table) 07/22/21 07/22/21 Range/Units 05:14 05:14 WBC 3.6 L (3.8-10.6) k/uL RBC 2.95 L (3.80-5.40) m/uL Hgb 9.9 L (11.4-16.0) gm/dL Hct 29.6 L (34.0-46.0) % MCV 100.4 H (80.0-100.0) fL RDW 19.1 H (11.5-15.5) % Chloride 110 H (96-109) mmol/L Calcium 8.4 L (8.7-10.3) mg/dL AST 37 H (13-35) U/L Total Protein 5.7 L (6.2-8.2) g/dL Albumin 3.50 L (3.80-4.90) g/dL Albumin/Globulin Ratio 1.59 L (1.60-3.17) g/dL
[2021-07-22] MEDS: traZODone HCL 100 MG TAB PO SCH (21:55)
[2021-07-23] MEDS: LORazepam 1 MG TAB PO PRN ×5 (04:07→21:57)
[2021-07-23] MEDS: 0.9% NACL WITH KCL 40 MEQ/L 1,000 ML IV SCH ×2 (04:41→19:44)
[2021-07-23] MEDS: traMADol 50 MG TAB PO PRN ×3 (06:09→21:55)
[2021-07-23 06:39] LABS: Anisocytosis Slight; Basophils % (A) 1 %; Eosinophils # (A) 0.1 k/uL (0-0.7); Eosinophils % (A) 2 %; HCT 32.8 % (34.0-46.0); HGB 10.8 gm/dL (11.4-16.0); Lymphocytes # (A) 1.3 k/uL (1.0-4.8); Lymphocytes % (A) 28 %; MCH 32.8 pg (25.0-35.0); MCHC 32.8 g/dL (31.0-37.0); MCV 99.9 fL (80.0-100.0); Macrocytosis Moderate; Mean Platelet Volume 7.6; Monocytes # (A) 0.3 k/uL (0-1.0); Monocytes % (A) 7 %; Neutrophils # (A) 2.8 k/uL (1.3-7.7); Neutrophils % (A) 60 %; Platelet Count 366 k/uL (150-450); RBC 3.28 m/uL (3.80-5.40); RDW 19.2 % (11.5-15.5); WBC 4.6 k/uL (3.8-10.6)
[2021-07-23] MEDS: IPRATROPIUM-ALBUTEROL 3 ML NEB INHALATION SCH ×4 (07:24→20:28)
--- NOTE | 2021-07-23 09:29 | PN ---
PROGRESS NOTE She complains some nausea and vomiting as well as dizziness, although earlier today she said her abdominal pain was better. Denied any further bloody bowel movements. She had a colonoscopy which showed a 3 mm descending colon polyp, grade 2 internal hemorrhoids. She is afebrile. Vital signs stable. Sitting up in a chair. Cardiovascular: S1, S2. Lungs clear. GI soft. Hematology: Negative Homans. ASSESSMENT: 1. Abdominal pain, improving. 2. Leukopenia. 3. Hypokalemia. 4. Alcohol abuse. 5. Alcohol intoxication. 6. Hepatomegaly. 7. Anemia. 8. Thickening of the right colon, status post colonoscopy. PLAN: Try to get her into [facility] and get her ready for discharge home. MMODL / IJN: [id number] /
[2021-07-23] MEDS: MULTIVITAMINS, THERA 1 EACH TAB PO SCH (09:47)
[2021-07-23] MEDS: SERTRALINE 100 MG TAB PO SCH (09:47)
[2021-07-23] MEDS: FOLIC ACID 1 MG TAB PO SCH (09:48)
[2021-07-23] MEDS: THIAMINE 100 MG TAB PO SCH ×2 (09:48→16:52)
[2021-07-23] MEDS: MAGNESIUM OXIDE 400 MG TAB PO SCH ×2 (09:48→21:55)
[2021-07-23] MEDS: METOPROLOL TARTRATE 12.5 MG TAB PO SCH ×3 (09:48→21:55)
[2021-07-23] MEDS: NICOTINE 14MG/24HR PATCH TRANSDERM SCH (09:49)
[2021-07-23] MEDS: HEPARIN SODIUM,PORCINE/PF 5,000 UNIT/0.5 ML SYRINGE SQ SCH ×2 (09:49→21:51)
[2021-07-23] MEDS: PANTOPRAZOLE 40 MG/10 ML VIAL IV SCH (09:50)
[2021-07-23] MEDS: DILTIAZEM CD 180 MG CAP.ER.24H PO SCH (09:50)
[2021-07-23] MEDS: SODIUM FERRIC GLUCONAT-SUCROSE 125 MG in SODIUM CHLORIDE 0.9% 100 ML IVPB SCH (10:34)
--- NOTE | 2021-07-23 13:17 | P.PN ---
Subjective Progress Note Date: 07/23/21 CHIEF COMPLAINT: Abdominal pain HISTORY OF PRESENT ILLNESS: Patient is in the hospital with abdominal pain and alcohol intoxication. Patient complaining of upper abdominal pain. She vomited this morning. She denies having any bowel movements since colonoscopy. She underwent colonoscopy with Dr. Connors. Results showed a 3 mm descending colon polyp status post removal by cold biopsy and grade 2 internal hemorrhoids. Afebrile WBC 4.6 Hgb 10.8 PHYSICAL EXAM: VITAL SIGNS: Reviewed. GENERAL: Well-developed in no acute distress. HEENT: No sclera icterus. Extraocular movements grossly intact. Moist buccal mucosa. Head is atraumatic, normocephalic. ABDOMEN: Soft. Nondistended. Epigastric tenderness NEUROLOGIC: Alert and oriented. Cranial nerves II through XII grossly intact. ASSESSMENT: 1. Epigastric abdominal pain with nausea and vomiting 2. Alcohol abuse disorder with alcohol intoxication 3. Hepatomegaly 4. Anemia 5. Computed tomography scan with mild wall thickening of the right colon status post colonoscopy with results showing a 3 mm descending colon polyp and grade 2 internal hemorrhoids PLAN: -HIDA scan ordered for further evaluation of patient's abdominal pain with continuous nausea and vomiting -Further recommendations forthcoming per HIDA scan results Physician Bag Loader Machine Operator note has been reviewed by physician. Signing provider agrees with the documented findings, assessment, and plan of care. Objective - Vital Signs Vital signs: Vital Signs Temp 98.4 F 07/23/21 04:41 Pulse 71 07/23/21 04:41 Resp 16 07/23/21 04:41 BP 131/80 07/23/21 04:41 Pulse Ox 96 07/23/21 04:41 Intake & Output 07/22/21 07/23/21 07/23/21 18:59 06:59 18:59 Intake Total 1400 Output Total 0 Balance 1400 0 Intake: Oral 1400 Output: Urine 0 Other: Voiding Method Toilet Toilet # Voids 3 3 - Labs CBC & Chem 7: 07/23/21 06:19 07/22/21 05:14 Labs: Abnormal Lab Results - Last 24 Hours (Table) 07/23/21 Range/Units 06:19 RBC 3.28 L (3.80-5.40) m/uL Hgb 10.8 L (11.4-16.0) gm/dL Hct 32.8 L (34.0-46.0) % RDW 19.2 H (11.5-15.5) %
--- NOTE | 2021-07-23 13:36 | NM ---
Nuclear medicine hepatobiliary scan. HISTORY: Pain. DOSAGE: The patient received 1.65 micrograms of CCK and 4.9 mCi of Technetium 99m Choletec. FINDINGS: There is normal hepatic extraction. The gallbladder is seen by 30 minutes. There is bilia ry to bowel clearance by 30 minutes. Ejection fraction is 75%. IMPRESSION: 1. Normal hepatobiliary exam
[2021-07-23 18:06] LABS: African American GFR (CKD) 104.7 (60.0-200.0); Albumin 3.9 g/dL (3.80-4.90); Albumin/Globulin Ratio 1.63 (1.60-3.17); Anion Gap 11.2 mmol/L (4.00-12.00); BUN/Creat Ratio 17.5 Ratio (12.00-20.00); Calcium 8.8 mg/dL (8.7-10.3); Carbon Dioxide 18.8 mmol/L (21.6-31.8); Globulin 2.4 g/dL (1.6-3.3); Non-African American GFR(CKD) 90.3 (60.0-200.0); Potassium 5.1 mmol/L (3.5-5.5); Total Bilirubin 0.3 mg/dL (0.3-1.2); Total Protein 6.3 g/dL (6.2-8.2)
[2021-07-23] MEDS: traZODone HCL 100 MG TAB PO SCH (21:55)
--- NOTE | 2021-07-23 23:43 | PN ---
PROGRESS NOTE This is a 45-year-old white female who came to the hospital with abdominal pain, alcohol intoxication. She had a HIDA scan today which showed a normal HIDA scan. Colonoscopy shows a 3 mm descending colon polyp, for which a cold biopsy and grade 2 internal hemorrhoids were found. White count 4.6, hemoglobin is 10.8. Cardiovascular: S1, S2. Lungs clear. GI soft. Hematology: Negative Homans. Psych: Fair mood and affect. ASSESSMENT: 1. Epigastric abdominal pain, nausea, vomiting. 2. Alcohol abuse disorder. 3. Alcohol intoxication. 4. Hepatomegaly. 5. Anemia. 6. Status post internal hemorrhoids. 7. Status post descending colon polyp removal. HIDA scan was ordered for further evaluation. The patient has abdominal pain and continued nausea and vomiting. Possible discharge home tomorrow, as patient has a normal HIDA scan and her hemoglobin is stable and she is not going through too much withdrawal anymore. She needs to go to [place]. MMODL / IJN: [id number] /
[2021-07-24] MEDS: IPRATROPIUM-ALBUTEROL 3 ML NEB INHALATION SCH ×4 (07:13→18:34)
[2021-07-24] MEDS: 0.9% NACL WITH KCL 40 MEQ/L 1,000 ML IV SCH (08:06)
[2021-07-24] MEDS: SERTRALINE 100 MG TAB PO SCH (08:06)
[2021-07-24] MEDS: THIAMINE 100 MG TAB PO SCH ×2 (08:06→17:41)
[2021-07-24] MEDS: METOPROLOL TARTRATE 12.5 MG TAB PO SCH ×3 (08:06→19:56)
[2021-07-24] MEDS: traMADol 50 MG TAB PO PRN ×2 (08:07→15:57)
[2021-07-24] MEDS: NICOTINE 14MG/24HR PATCH TRANSDERM SCH (08:07)
[2021-07-24] MEDS: MAGNESIUM OXIDE 400 MG TAB PO SCH ×2 (08:07→19:56)
[2021-07-24] MEDS: LORazepam 1 MG TAB PO PRN ×4 (08:07→19:56)
[2021-07-24] MEDS: DILTIAZEM CD 180 MG CAP.ER.24H PO SCH (08:07)
[2021-07-24] MEDS: MULTIVITAMINS, THERA 1 EACH TAB PO SCH (08:07)
[2021-07-24] MEDS: FOLIC ACID 1 MG TAB PO SCH (08:07)
[2021-07-24] MEDS: PANTOPRAZOLE 40 MG/10 ML VIAL IV SCH (08:08)
[2021-07-24] MEDS: HEPARIN SODIUM,PORCINE/PF 5,000 UNIT/0.5 ML SYRINGE SQ SCH ×2 (08:58→19:31)
--- NOTE | 2021-07-24 10:02 | P.PN ---
Subjective Progress Note Date: 07/24/21 Principal diagnosis: Abdominal pain Patient still having nausea and vomiting. Epigastric pain is improved. HIDA scan was normal. Objective - Vital Signs Vital signs: Vital Signs Temp 98.2 F 07/24/21 05:00 Pulse 70 07/24/21 05:00 Resp 18 07/24/21 05:00 BP 122/75 07/24/21 05:00 Pulse Ox 95 07/24/21 05:00 Intake & Output 07/23/21 07/24/21 07/24/21 18:59 06:59 18:59 Intake Total 900 475 Balance 900 475 Intake: Intake, IV Titration 900 Amount 0.9% NaCl with KCl 40 Meq 900 /l 1,000 ml @ 75 mls/hr IV .[id number] [facility] Rx#: [id number] Oral 475 Other: Voiding Method Toilet Toilet Toilet # Voids 2 - Exam Abdomen: Soft, mild epigastric tenderness, no rebound or guarding - Labs CBC & Chem 7: 07/23/21 06:19 07/23/21 06:19 Labs: Abnormal Lab Results - Last 24 Hours (Table) 07/23/21 Range/Units 06:19 Carbon Dioxide 18.8 L (21.6-31.8) mmol/L Assessment and Plan (1) Abdominal pain Narrative/Plan: Patient's pain likely on the basis of resolving pancreatitis. Still having nausea and vomiting however. Continue monitoring those symptoms. If they persist possible EGD. Current Visit: Yes Status: Acute Code(s): R10.9 - UNSPECIFIED ABDOMINAL PAIN SNOMED Code(s): 75792405
[2021-07-24] MEDS: SODIUM FERRIC GLUCONAT-SUCROSE 125 MG in SODIUM CHLORIDE 0.9% 100 ML IVPB SCH (10:31)
[2021-07-24] MEDS: guaiFENesin-DM 100-10MG/5ML 10 ML CUP PO PRN (10:32)
[2021-07-24] MEDS: traZODone HCL 100 MG TAB PO SCH (19:56)
[2021-07-25] MEDS: traMADol 50 MG TAB PO PRN ×4 (00:08→22:07)
[2021-07-25] MEDS: LORazepam 1 MG TAB PO PRN ×5 (00:08→22:07)
[2021-07-25 06:35] LABS: Anisocytosis Slight; Basophils % (A) 1 %; Eosinophils # (A) 0.1 k/uL (0-0.7); Eosinophils % (A) 1 %; HCT 33.2 % (34.0-46.0); Lymphocytes # (A) 1.5 k/uL (1.0-4.8); Lymphocytes % (A) 32 %; MCH 33.6 pg (25.0-35.0); MCHC 33.1 g/dL (31.0-37.0); MCV 101.7 fL (80.0-100.0); Macrocytosis Moderate; Mean Platelet Volume 7.6; Monocytes # (A) 0.4 k/uL (0-1.0); Monocytes % (A) 9 %; Neutrophils # (A) 2.4 k/uL (1.3-7.7); Neutrophils % (A) 54 %; Platelet Count 384 k/uL (150-450); RBC 3.27 m/uL (3.80-5.40); RDW 19.2 % (11.5-15.5); WBC 4.5 k/uL (3.8-10.6)
[2021-07-25] MEDS: HEPARIN SODIUM,PORCINE/PF 5,000 UNIT/0.5 ML SYRINGE SQ SCH ×2 (07:17→21:57)
--- NOTE | 2021-07-25 07:31 | PN ---
PROGRESS NOTE 45-year-old white female continues to have nausea, vomiting, emesis. Had negative HIDA scan, possibly an EGD will have to be done on Monday. Continues to have epigastric pain. Cardiovascular S1-S2. Lungs clear. GI soft. Hematology negative Homans. Psych: Fair mood and affect. ASSESSMENT: Epigastric pain, nausea, vomiting, possible peptic ulcer disease. HIDA scan is negative. PROGNOSIS: Guarded. Follow up next 24 to 48 hours. MMODL / IJN: [id number] /
[2021-07-25] MEDS: IPRATROPIUM-ALBUTEROL 3 ML NEB INHALATION SCH ×4 (07:52→19:57)
[2021-07-25] MEDS: METOPROLOL TARTRATE 12.5 MG TAB PO SCH ×3 (08:49→20:23)
[2021-07-25] MEDS: MAGNESIUM OXIDE 400 MG TAB PO SCH ×2 (08:49→20:23)
[2021-07-25] MEDS: SERTRALINE 100 MG TAB PO SCH (08:49)
[2021-07-25] MEDS: NICOTINE 14MG/24HR PATCH TRANSDERM SCH (08:49)
[2021-07-25] MEDS: MULTIVITAMINS, THERA 1 EACH TAB PO SCH (08:49)
[2021-07-25] MEDS: THIAMINE 100 MG TAB PO SCH ×2 (08:49→17:29)
[2021-07-25] MEDS: FOLIC ACID 1 MG TAB PO SCH (08:49)
[2021-07-25] MEDS: DILTIAZEM CD 180 MG CAP.ER.24H PO SCH (08:50)
[2021-07-25] MEDS: PANTOPRAZOLE 40 MG/10 ML VIAL IV SCH (08:50)
--- NOTE | 2021-07-25 09:42 | P.PN ---
Subjective Progress Note Date: 07/25/21 Principal diagnosis: Abdominal pain patient feels better today. No nausea or vomiting currently. Since her pain is improved. White blood cell count 4.5. Objective - Vital Signs Vital signs: Vital Signs Temp 98.6 F 07/25/21 04:42 Pulse 80 07/25/21 08:00 Resp 18 07/25/21 04:42 BP 157/92 07/25/21 04:42 Pulse Ox 96 07/25/21 04:42 Intake & Output 07/24/21 07/25/21 07/25/21 18:59 06:59 18:59 Intake Total 900 500 Balance 900 500 Intake: Intake, IV Titration 900 Amount 0.9% NaCl with KCl 40 Meq 900 /l 1,000 ml @ 75 mls/hr IV .[id number] [facility] Rx#: [id number] Oral 500 Other: Voiding Method Toilet Toilet Toilet # Voids 1 2 - Exam Abdomen: Soft, nondistended, mild epigastric tenderness - Labs CBC & Chem 7: 07/25/21 06:04 07/23/21 06:19 Labs: Abnormal Lab Results - Last 24 Hours (Table) 07/25/21 Range/Units 06:04 RBC 3.27 L (3.80-5.40) m/uL Hgb 11.0 L (11.4-16.0) gm/dL Hct 33.2 L (34.0-46.0) % MCV 101.7 H (80.0-100.0) fL RDW 19.2 H (11.5-15.5) % Assessment and Plan (1) Abdominal pain Narrative/Plan: Patient seems to be doing better. Continue diet as tolerated. Possible discharge per primary service. Current Visit: Yes Status: Acute Code(s): R10.9 - UNSPECIFIED ABDOMINAL PAIN SNOMED Code(s): 76156670
[2021-07-25 09:51] LABS: African American GFR (CKD) 104.7 (60.0-200.0); Albumin 3.5 g/dL (3.80-4.90); Albumin/Globulin Ratio 1.52 (1.60-3.17); Anion Gap 7.1 mmol/L (4.00-12.00); BUN/Creat Ratio 21.25 Ratio (12.00-20.00); Carbon Dioxide 23.9 mmol/L (21.6-31.8); Globulin 2.3 g/dL (1.6-3.3); Non-African American GFR(CKD) 90.3 (60.0-200.0); Potassium 4.5 mmol/L (3.5-5.5); Total Bilirubin 0.2 mg/dL (0.2-1.2); Total Protein 5.8 g/dL (6.2-8.2)
[2021-07-25] MEDS: 0.9% NACL WITH KCL 40 MEQ/L 1,000 ML IV SCH ×2 (10:51→10:52)
--- NOTE | 2021-07-25 19:29 | PN ---
PROGRESS NOTE This is a 45-year-old white female. Hemoglobin is 11, white count 4.5. She says she is nauseated. She might need EGD tomorrow if she is unable to keep any liquids and solids down. CARDIOVASCULAR: S1, S2. Lungs clear. She says she was wheezing this morning and she needed a breathing treatment. Surgery saw her. Continue diet and discharge, as they are not planning to do EGD if she is tolerating food okay. So will possibly discharge her home in the morning. MMODL / IJN: [id number] /
[2021-07-25] MEDS: traZODone HCL 100 MG TAB PO SCH (20:23)
[2021-07-26] MEDS: 0.9% NACL WITH KCL 40 MEQ/L 1,000 ML IV SCH (01:20)
[2021-07-26 05:17] VITALS: PULSE 65
[2021-07-26] MEDS: HEPARIN SODIUM,PORCINE/PF 5,000 UNIT/0.5 ML SYRINGE SQ SCH (07:05)
[2021-07-26] MEDS: METOPROLOL TARTRATE 12.5 MG TAB PO SCH ×2 (07:28→16:13)
[2021-07-26] MEDS: DILTIAZEM CD 180 MG CAP.ER.24H PO SCH (07:28)
[2021-07-26] MEDS: SERTRALINE 100 MG TAB PO SCH (07:28)
[2021-07-26] MEDS: MAGNESIUM OXIDE 400 MG TAB PO SCH (07:28)
[2021-07-26] MEDS: FOLIC ACID 1 MG TAB PO SCH (07:28)
[2021-07-26] MEDS: MULTIVITAMINS, THERA 1 EACH TAB PO SCH (07:28)
[2021-07-26] MEDS: THIAMINE 100 MG TAB PO SCH (07:28)
[2021-07-26] MEDS: LORazepam 1 MG TAB PO PRN ×2 (07:28→12:46)
[2021-07-26] MEDS: PANTOPRAZOLE 40 MG/10 ML VIAL IV SCH (07:29)
[2021-07-26] MEDS: traMADol 50 MG TAB PO PRN ×2 (08:13→16:13)
[2021-07-26] MEDS: IPRATROPIUM-ALBUTEROL 3 ML NEB INHALATION SCH ×3 (08:17→15:24)
[2021-07-26] MEDS: NICOTINE 14MG/24HR PATCH TRANSDERM SCH (10:24)
[2021-07-26 12:12] VITALS: BP 112/74; RESP 20; TEMP 98.3
--- NOTE | 2021-07-26 13:29 | P.PN ---
Subjective Progress Note Date: 07/26/21 CHIEF COMPLAINT: Abdominal pain HISTORY OF PRESENT ILLNESS: Patient seen and examined. She states she is feeling better today. She still has some nausea but no vomiting. Abdominal p ain improved. Shes been afebrile. No further signs of bleeding. She's had normal bowel movement. No repeat labs today. Yesterday's WBC was 4.5, hemoglobin 11.0 PHYSICAL EXAM: VITAL SIGNS: Reviewed. GENERAL: Well-developed in no acute distress. HEENT: No sclera icterus. Extraocular movements grossly intact. Moist buccal mucosa. Head is atraumatic, normocephalic. ABDOMEN: Soft. Nondistended. Nontender. NEUROLOGIC: Alert and oriented. Cranial nerves II through XII grossly intact. ASSESSMENT: 1. Abdominal pain 2. Alcohol abuse disorder with alcohol intoxication 3. Anemia 4. Computed tomography scan with mild wall thickening of the right colon status post colonoscopy with results showing a 3 mm descending colon polyp and grade 2 internal hemorrhoids PLAN: -Continue diet as tolerated -HIDA scan normal. No plans on any surgical intervention -Patient is cleared by surgical services for discharge -Thank you for this consultation we will sign off at this time The impression and plan of care has been dictated as directed. I performed a history and examination of this patient, discussed the same with the dictator. I agree with the dictator's note ,documented as a scribe. Any additional findings or plans will be noted. Objective - Vital Signs Vital signs: Vital Signs Temp 98.4 F 07/26/21 05:00 Pulse 65 07/26/21 05:00 Resp 16 07/26/21 05:00 BP 127/70 07/26/21 05:00 Pulse Ox 97 07/26/21 05:00 Intake & Output 07/25/21 07/26/21 07/26/21 18:59 06:59 18:59 Intake Total 900 1390 Balance 900 1390 Intake: Intake, IV Titration 900 Amount 0.9% NaCl with KCl 40 Meq 900 /l 1,000 ml @ 75 mls/hr IV .[id number] [facility] Rx#: [id number] Oral 1390 Other: Voiding Method Toilet Toilet # Voids 1 3 - Labs CBC & Chem 7: 07/25/21 06:04 07/25/21 06:04 Labs: Abnormal Lab Results - Last 24 Hours (Table) 07/25/21 Range/Units 06:04 BUN/Creatinine Ratio 21.25 H (12.00-20.00) Ratio Total Protein 5.8 L (6.2-8.2) g/dL Albumin 3.50 L (3.80-4.90) g/dL Albumin/Globulin Ratio 1.52 L (1.60-3.17) g/dL Assessment and Plan (1) GI bleed Current Visit: Yes Status: Acute Code(s): K92.2 - GASTROINTESTINAL HEMORRHAGE, UNSPECIFIED SNOMED Code(s): 38535102 (2) Alcohol abuse Current Visit: Yes Status: Acute Code(s): F10.10 - ALCOHOL ABUSE, UNCOMPLICATED SNOMED Code(s): 77415753 (3) Alcoholic intoxication Current Visit: Yes Status: Acute Code(s): F10.929 - ALCOHOL USE, UNSPECIFIED WITH INTOXICATION, UNSPECIFIED SNOMED Code(s): 87650789
== END 2021-07-26 17:20 | disposition home or self-care (01) | DRG 896 ==
LOC: EC 22:33 → 5NMEDONC 23:54 → OBSVTOIN 23:54 → 5NMEDONC 07-16 00:30
PROVIDERS: ADMIT Family Medicine; ATTEND Family Medicine
PROC: 0DBM8ZX Excision of Descending Colon, Via Natural or Artificial Opening Endoscopic, Diagnostic (ICD-10-PCS; principal; 2021-07-21 10:50)
DX: F10.231 Alcohol dependence with withdrawal delirium (principal); G93.41 Metabolic encephalopathy; K85.20 Alcohol induced acute pancreatitis without necrosis or infection; E87.1 Hypo-osmolality and hyponatremia; I85.10 Secondary esophageal varices without bleeding; N39.0 Urinary tract infection, site not specified; D61.818 Other pancytopenia; E86.0 Dehydration; E87.6 Hypokalemia; F10.229 Alcohol dependence with intoxication, unspecified; F17.200 Nicotine dependence, unspecified, uncomplicated; F32.9 Major depressive disorder, single episode, unspecified; F41.9 Anxiety disorder, unspecified; I10 Essential (primary) hypertension; K52.9 Noninfective gastroenteritis and colitis, unspecified; K64.1 Second degree hemorrhoids; K70.10 Alcoholic hepatitis without ascites; M19.039 Primary osteoarthritis, unspecified wrist; Y90.8 Blood alcohol level of 240 mg/100 ml or more; Z59.0 Homelessness; Z68.34 Body mass index [BMI] 34.0-34.9, adult; K63.5 Polyp of colon; Z90.49 Acquired absence of other specified parts of digestive tract; Z87.19 Personal history of other diseases of the digestive system; Z79.899 Other long term (current) drug therapy; E66.9 Obesity, unspecified; K64.8 Other hemorrhoids; B96.20 Unspecified Escherichia coli [E. coli] as the cause of diseases classified elsewhere; D50.9 Iron deficiency anemia, unspecified
CPT/HCPCS: 45380; 71046; 74176; 78227; 80048; 80053; 80320; 81001; 82607; 82728; 82746; 83540; 83550; 83690; 83735; 84100; 84703; 85025; 87077; 87086; 87186; 87635; 88305; 93005; 94640; 99285

== ENCOUNTER 2021-08-19 00:23 | Emergency (ER) | payer OTHER ==
--- NOTE | 2021-08-19 00:43 | ED ---
Psych HPI - General Stated Complaint: ETOH Time Seen by Provider: 08/19/21 00:25 Source: RN notes reviewed, old records reviewed Mode of arrival: EMS Limitations: altered mental status - History of Present Illness Initial Comments: This is a 45-year-old female DF for evaluation psychiatric illness. Brought in by EMS and PD for psychiatric illness and alcohol intoxication. Patient is a poor historian but aggressive and combative, argumentative and not providing history taking MD Complaint: feels depressed, other (Alcohol intoxication) -: unknown Associated Psychiatric Symptoms: depression History of same: Yes Quality: constant, intermittent Improves With: none Worsens With: none Context: recent alcohol abuse Associated Symptoms: denies other symptoms Treatments Prior to Arrival: placed on mental health hold - Related Data Home Medications Medication Instructions Recorded Confirmed traMADol HCl [Ultram] 50 mg PO TID PRN 07/14/20 07/16/21 Previous Rx's Medication Instructions Recorded Diltiazem Cd [Cardizem CD] 180 mg PO DAILY 30 Days #30 03/31/21 cap.er.24h Sertraline [Zoloft] 100 mg PO DAILY 30 Days #30 tab 03/31/21 Magnesium Oxide [Mag-Ox] 400 mg PO BID 30 Days #60 tab 06/09/21 Metoprolol Tartrate [Lopressor] 12.5 mg PO TID 90 Days #180 tab 06/09/21 Nicotine 14Mg/24Hr Patch [Habitrol] 1 patch TRANSDERM DAILY 30 Days 06/09/21 #30 patch Pantoprazole [Protonix] 40 mg PO AC-BID 30 Days #60 06/09/21 tablet. traZODone HCL [Desyrel] 100 mg PO HS 30 Days #30 tab 06/09/21 Folic Acid 1 mg PO DAILY@1200 tab 07/26/21 Multivitamins, Thera [Multivitamin 1 each PO DAILY@1200 tab 07/26/21 (formulary)] Thiamine [Vitamin B-1] 100 mg PO BID-W/MEALS tab 07/26/21 Allergies Allergy/AdvReac Type Severity Reaction Status Date / Time Penicillins Allergy Unknown Verified 08/19/21 00:50 Childhood Review of Systems ROS Statement: Those systems with pertinent positive or pertinent negative responses have been documented in the HPI. ROS Other: All systems not noted in ROS Statement are negative. Past Medical History Past Medical History: Hypertension Additional Past Medical History / Comment(s): Herniated Disk. History of Any Multi-Drug Resistant Organisms: CRE, Other MDRO Date of last positivie culture/infection: 07/16/21 MDRO Source:: URINE Past Surgical History: Appendectomy, Orthopedic Surgery Additional Past Surgical History / Comment(s): titanium wrist, Exploratory surgery. Past Anesthesia/Blood Transfusion Reactions: No Reported Reaction Past Psychological History: No Psychological Hx Reported Smoking Status: Former smoker Past Alcohol Use History: Abuse, Daily, Heavy Additional Past Alcohol Use History / Comment(s): Pt states she quit smoking almost 1 year ago. Patient states she drinks 1/5 per day. Patient is currently homeless Past Drug Use History: None Reported - Past Family History Father Family Medical History: Osteoarthritis (OA) General Exam General appearance: alert, in no apparent distress Head exam: Present: atraumatic, normocephalic, normal inspection Eye exam: Present: normal appearance, PERRL, EOMI. Absent: scleral icterus, conjunctival injection, periorbital swelling ENT exam: Present: normal exam, mucous membranes moist Neck exam: Present: normal inspection. Absent: tenderness, meningismus, lymphadenopathy Respiratory exam: Present: normal lung sounds bilaterally. Absent: respiratory distress, wheezes, rales, rhonchi, stridor Cardiovascular Exam: Present: regular rate, normal rhythm, normal heart sounds. Absent: systolic murmur, diastolic murmur, rubs, gallop, clicks GI/Abdominal exam: Present: soft, normal bowel sounds. Absent: distended, tenderness, guarding, rebound, rigid Extremities exam: Present: normal inspection, full ROM, normal capillary refill. Absent: tenderness, pedal edema, joint swelling, calf tenderness Back exam: Present: normal inspection Neurological exam: Present: alert, oriented X3, CN II-XII intact Psychiatric exam: Present: normal affect, normal mood Skin exam: Present: warm, dry, intact, normal color. Absent: rash Course Vital Signs 08/19/21 08/19/21 00:46 00:47 Temperature 98.2 F 97.3 F L Pulse Rate 89 75 Respiratory 18 17 Rate Blood Pressure 164/112 172/103 O2 Sat by Pulse 94 L 97 Oximetry - Reevaluation(s) Reevaluation #1: 08/19/21 01:34 Medical record is reviewed Reevaluation #2: 08/19/21 05:57 Medical clear for psychiatric evaluation Procedures - Restraint - Face to Face Restraint Occurrence 1 Patient's Immediate Situation: Endangers self safety, Endangers others' safety, Endangers staff safety, Violent behavior Patient's Reaction to the Intervention: Uncooperative, Angry, Belligerent, Anxious Patient's Medical & Behavioral Condition: Awake Need to Continue or Terminate Restraint or Seclusion: Continue Face to Face Eval of Restraint Date: 08/19/21 Face to Face Eval of Restraint Time: 01:30 Medical Decision Making - Medical Decision Making 45 female to the ER for evaluation patient presents and is evaluated by psychiatry today for evaluation regards to psychiatric illness but really alcohol intoxication Outside or suicidal and can be discharged home Disposition Clinical Impression: Alcohol withdrawal, Alcoholic intoxication Disposition: HOME SELF-CARE Condition: Good Instructions (If sedation given, give patient instructions): Alcohol Intoxication (ED) Is patient prescribed a controlled substance at d/c from ED?: No Referrals: Josef Carlson MD [Primary Care Provider] - 1-2 days
[2021-08-19 00:59] VITALS: TEMP 97.3
[2021-08-19] MEDS ORDERED: LORazepam 2 MG/ML INJ IM STA (01:34)
[2021-08-19] MEDS ORDERED: HALOPERIDOL LACTATE 5 MG/ML 1 ML VIAL IM STA (02:07)
[2021-08-19 06:31] VITALS: BP 142/87; PULSE 94; RESP 16
== END 2021-08-19 06:30 | disposition home or self-care (01) ==
LOC: EC 00:23
DX: F10.229 Alcohol dependence with intoxication, unspecified (principal); Z88.0 Allergy status to penicillin; Y90.9 Presence of alcohol in blood, level not specified; I10 Essential (primary) hypertension; Z90.49 Acquired absence of other specified parts of digestive tract; Z87.891 Personal history of nicotine dependence; Z65.3 Problems related to other legal circumstances
CPT/HCPCS: 99285; 96372 ×2; 82075; J2060; J1630

== ENCOUNTER 2021-08-30 20:40 | Inpatient (IN) | payer MEDICAID, OTHER ==
--- NOTE | 2021-08-30 21:47 | ED ---
Psych HPI - General Source: patient, EMS, RN notes reviewed, old records reviewed Mode of arrival: EMS Limitations: no limitations - History of Present Illness MD Complaint: suicidal ideation, feels depressed -: unknown Associated Psychiatric Symptoms: depression, suicidal ideation, racing thoughts History of same: Yes Quality: constant, getting worse Improves With: none Worsens With: alcohol Context: recent alcohol abuse, recent drug abuse, significant life stressor Treatments Prior to Arrival: placed on mental health hold If Self Harm: admits thoughts of self harm <Sadi Huang - Last Filed: 08/30/21 23:20> <Star Whyte - Last Filed: 08/31/21 13:08> - General Chief Complaint: Psychiatric Symptoms Stated Complaint: Mental health/ETOH Time Seen by Provider: 08/30/21 21:43 - History of Present Illness Initial Comments: This is a 45-year-old female for psychiatric evaluation she does have issues of psychiatric illness and coming acutely intoxicated stating that she doesn't complain of . Otherwise no new inciting events. Patient does have chronic history of depression (Sadi Huang) - Related Data Home Medications Medication Instructions Recorded Confirmed traMADol HCl [Ultram] 50 mg PO TID PRN 07/14/20 08/31/21 hydroCHLOROthiazide 25 mg PO DAILY 08/31/21 08/31/21 Previous Rx's Medication Instructions Recorded Diltiazem Cd [Cardizem CD] 180 mg PO DAILY 30 Days #30 03/31/21 cap.er.24h Sertraline [Zoloft] 100 mg PO DAILY 30 Days #30 tab 03/31/21 Magnesium Oxide [Mag-Ox] 400 mg PO BID 30 Days #60 tab 06/09/21 Metoprolol Tartrate [Lopressor] 12.5 mg PO TID 90 Days #180 tab 06/09/21 Nicotine 14Mg/24Hr Patch [Habitrol] 1 patch TRANSDERM DAILY 30 Days 06/09/21 #30 patch Pantoprazole [Protonix] 40 mg PO AC-BID 30 Days #60 06/09/21 tablet. traZODone HCL [Desyrel] 100 mg PO HS 30 Days #30 tab 06/09/21 Allergies Allergy/AdvReac Type Severity Reaction Status Date / Time Penicillins Allergy Unknown Verified 08/31/21 07:47 Childhood Review of Systems ROS Other: All systems not noted in ROS Statement are negative. <Sadi Huang - Last Filed: 08/30/21 23:20> ROS Other: All systems not noted in ROS Statement are negative. <Star Whyte Lashon - Last Filed: 08/31/21 13:08> ROS Statement: Those systems with pertinent positive or pertinent negative responses have been documented in the HPI. Past Medical History Past Medical History: Hypertension Additional Past Medical History / Comment(s): Herniated Disk. History of Any Multi-Drug Resistant Organisms: CRE, Other MDRO Date of last positivie culture/infection: 07/16/21 MDRO Source:: URINE Past Surgical History: Appendectomy, Orthopedic Surgery Additional Past Surgical History / Comment(s): titanium wrist, Exploratory surgery. Past Anesthesia/Blood Transfusion Reactions: No Reported Reaction Past Psychological History: No Psychological Hx Reported Smoking Status: Current every day smoker Past Alcohol Use History: Abuse, Daily, Heavy Past Drug Use History: None Reported - Past Family History Father Family Medical History: Osteoarthritis (OA) <Sadi Huang - Last Filed: 08/30/21 23:20> General Exam General appearance: alert, in no apparent distress, appears intoxicated Head exam: Present: atraumatic, normocephalic, normal inspection Eye exam: Present: normal appearance, PERRL, EOMI. Absent: scleral icterus, conjunctival injection, periorbital swelling ENT exam: Present: normal exam, mucous membranes moist Neck exam: Present: normal inspection. Absent: tenderness, meningismus, lymphadenopathy Respiratory exam: Present: normal lung sounds bilaterally. Absent: respiratory distress, wheezes, rales, rhonchi, stridor Cardiovascular Exam: Present: regular rate, normal rhythm, normal heart sounds. Absent: systolic murmur, diastolic murmur, rubs, gallop, clicks GI/Abdominal exam: Present: soft, normal bowel sounds. Absent: distended, tenderness, guarding, rebound, rigid Extremities exam: Present: normal inspection, full ROM, normal capillary refill. Absent: tenderness, pedal edema, joint swelling, calf tenderness Back exam: Present: normal inspection Neurological exam: Present: alert, oriented X3, CN II-XII intact Psychiatric exam: Present: normal affect, normal mood Skin exam: Present: warm, dry, intact, normal color. Absent: rash <Sadi Huang - Last Filed: 08/30/21 23:20> Course <Sadi Huang - Last Filed: 08/30/21 23:20> Vital Signs 08/30/21 08/31/21 20:44 00:20 Pulse Rate 96 95 Respiratory 20 22 Rate Blood Pressure 123/80 119/78 O2 Sat by Pulse 95 98 Oximetry - Reevaluation(s) Reevaluation #1: 08/30/21 23:27 Medical records reviewed (Sadi Huang) Medical Decision Making <Star Whyte - Last Filed: 08/31/21 13:08> - Medical Decision Making psych evaluation pending sobriety. Patient evaluated by psych. Recommended discharge. (Star Whyte) Disposition <Sadi Huang - Last Filed: 08/30/21 23:20> Is patient prescribed a controlled substance at d/c from ED?: No <Star Whyte - Last Filed: 08/31/21 13:08> Clinical Impression: Alcohol intoxication, Suicidal ideation Disposition: HOME SELF-CARE Condition: Good Instructions (If sedation given, give patient instructions): Help Prevent Phillips icide (ED) Referrals: Joesf Carlson MD [Primary Care Provider] - 1-2 days
[2021-08-30] MEDS ORDERED: LORazepam 2 MG/ML INJ IM STA (22:55)
[2021-08-31] MEDS ORDERED: LORazepam 2 MG/ML INJ IM STA (07:39)
[2021-08-31] MEDS ORDERED: MAGNESIUM HYDROXIDE 2,400 MG/10 ML CUP PO PRN (16:17)
[2021-08-31] MEDS ORDERED: LORazepam 1 MG TAB PO PRN (17:04)
[2021-08-31] MEDS: ACETAMINOPHEN TAB 325 MG TAB PO PRN (17:16)
[2021-08-31] MEDS: diazePAM 5 MG TAB PO SCH ×2 (17:18→21:04)
[2021-08-31] MEDS: METOPROLOL TARTRATE 12.5 MG TAB PO SCH ×2 (17:26→21:05)
[2021-08-31] MEDS: NICOTINE 14MG/24HR PATCH TRANSDERM SCH (18:49)
[2021-08-31] MEDS: PANTOPRAZOLE 40 MG TABLET PO SCH (20:21)
[2021-08-31 20:36] LABS: Appearance,Urine Cloudy (Clear); Bacteria,Urine Rare /hpf; Bilirubin,Urine Negative (Negative); Blood,Urine Negative (Negative); Color,Urine Yellow; Glucose,Urine (UA) Negative (Negative); Ketones,Urine Negative (Negative); Leukocyte Esterase,Urine Negative (Negative); Mucus,Urine Few /hpf; Nitrite,Urine Negative (Negative); Protein,Urine 1+ (Negative); RBC,Urine 2 /hpf (0-5); Specific Gravity,Urine 1.031 (1.001-1.035); Squamous Epithelial Cell,Urine 13 /hpf (0-4); WBC,Urine 1 /hpf (0-5)
[2021-08-31 20:50] LABS: Amphetamine Screen,Urine Not Detected (NotDetected); Barbiturate Screen,Urine Not Detected (NotDetected); Benzodiazepines Screen,Urine Detected (NotDetected); Cocaine Screen,Urine Not Detected (NotDetected); Methadone Screen, Urine Not Detected (NotDetected); Opiate Screen,Urine Not Detected (NotDetected); Oxycodone Screen, Urine Not Detected (NotDetected); Phencyclidine Screen,Urine Not Detected (NotDetected); Tricyclic Antidepressant,Urine Not Detected (NotDetected); Urn Cannabinoid Scrn Detected (NotDetected)
[2021-08-31] MEDS: MAGNESIUM OXIDE 400 MG TAB PO SCH (21:05)
[2021-08-31] MEDS: traZODone HCL 100 MG TAB PO SCH (21:05)
[2021-08-31] MEDS: MAG HYDROX/AL HYDROX/SIMETH 30 ML CUP PO PRN (21:07)
[2021-08-31] MEDS ORDERED: diazePAM 5 MG TAB PO SCH (22:00)
[2021-08-31] MEDS ORDERED: METOPROLOL TARTRATE 12.5 MG TAB PO SCH (22:00)
[2021-09-01 07:36] LABS: Basophils % (A) 1 %; Eosinophils # (A) 0.2 k/uL (0-0.7); Eosinophils % (A) 3 %; HCT 41.5 % (34.0-46.0); HGB 13.6 gm/dL (11.4-16.0); Lymphocytes # (A) 1.3 k/uL (1.0-4.8); Lymphocytes % (A) 29 %; MCHC 32.9 g/dL (31.0-37.0); MCV 103.3 fL (80.0-100.0); Macrocytosis Slight; Mean Platelet Volume 7.2; Monocytes # (A) 0.2 k/uL (0-1.0); Monocytes % (A) 5 %; Neutrophils # (A) 2.8 k/uL (1.3-7.7); Neutrophils % (A) 60 %; Platelet Count 218 k/uL (150-450); RBC 4.01 m/uL (3.80-5.40); RDW 15.6 % (11.5-15.5); WBC 4.6 k/uL (3.8-10.6)
[2021-09-01 07:51] LABS: ALT 22 U/L (4-34); AST 32 U/L (14-36); African American GFR (CKD) >90 (>60 ml/min/1.73 sqM); Albumin 3.9 g/dL (3.5-5.0); Alkaline Phosphatase 84 U/L (38-126); Anion Gap 7 mmol/L; Blood Urea Nitrogen 13 mg/dL (7-17); Calcium 9.3 mg/dL (8.4-10.2); Carbon Dioxide 25 mmol/L (22-30); Chloride 105 mmol/L (98-107); Glucose 103 mg/dL (74-99); Non-African American GFR(CKD) >90 (>60 ml/min/1.73 sqM); Potassium 4.2 mmol/L (3.5-5.1); Sodium 137 mmol/L (137-145); Total Bilirubin 0.6 mg/dL (0.2-1.3); Total Protein 6.8 g/dL (6.3-8.2)
[2021-09-01] MEDS: NICOTINE 14MG/24HR PATCH TRANSDERM SCH (08:50)
[2021-09-01] MEDS: hydroCHLOROthiazide 25 MG TAB PO SCH (08:51)
[2021-09-01] MEDS: DILTIAZEM CD 180 MG CAP.ER.24H PO SCH (08:51)
[2021-09-01] MEDS: METOPROLOL TARTRATE 12.5 MG TAB PO SCH ×3 (08:51→20:47)
[2021-09-01] MEDS: MAGNESIUM OXIDE 400 MG TAB PO SCH ×2 (08:51→20:47)
[2021-09-01] MEDS: PANTOPRAZOLE 40 MG TABLET PO SCH ×2 (08:51→16:35)
[2021-09-01] MEDS: diazePAM 5 MG TAB PO SCH ×3 (08:52→20:47)
[2021-09-01] MEDS ORDERED: SERTRALINE 100 MG TAB PO SCH (09:00)
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
[2021-09-01 12:07] LABS: Chol/HDL Ratio 3.86 Ratio; LDL Cholesterol,Calculated 144.2 mg/dL (0.0-131.0)
[2021-09-01] MEDS: ACETAMINOPHEN TAB 325 MG TAB PO PRN (16:34)
[2021-09-01] MEDS: MAG HYDROX/AL HYDROX/SIMETH 30 ML CUP PO PRN (16:34)
[2021-09-01] MEDS: traZODone HCL 100 MG TAB PO SCH (20:47)
[2021-09-01] MEDS ORDERED: PRAZOSIN 1 MG CAP PO SCH (21:00)
[2021-09-01] MEDS: LORazepam 1 MG TAB PO PRN (23:18)
[2021-09-02] MEDS: METOPROLOL TARTRATE 12.5 MG TAB PO SCH ×3 (08:40→20:47)
[2021-09-02] MEDS: DILTIAZEM CD 180 MG CAP.ER.24H PO SCH (08:40)
[2021-09-02] MEDS: PANTOPRAZOLE 40 MG TABLET PO SCH ×2 (08:40→16:31)
[2021-09-02] MEDS: NICOTINE 14MG/24HR PATCH TRANSDERM SCH (08:40)
[2021-09-02] MEDS: hydroCHLOROthiazide 25 MG TAB PO SCH (08:41)
[2021-09-02] MEDS: MAGNESIUM OXIDE 400 MG TAB PO SCH ×2 (08:41→20:47)
[2021-09-02] MEDS: diazePAM 5 MG TAB PO SCH ×3 (08:42→20:48)
[2021-09-02] MEDS: MAG HYDROX/AL HYDROX/SIMETH 30 ML CUP PO PRN ×2 (08:46→22:37)
[2021-09-02] MEDS ORDERED: SERTRALINE 100 MG TAB PO SCH (09:00)
[2021-09-02] MEDS ORDERED: SERTRALINE 25 MG TAB PO SCH (09:00)
--- NOTE | 2021-09-02 09:00 | CONS ---
CONSULTATION This is a 45-year-old white female whom I have known a long time with recent admissions for chronic alcoholism. Apparently she came in because she had no place to live and had some suicidal ideations and severe anxiety and night terrors, etc. She says she is stable at this time. She is waiting for placement on September 05 to go for alcohol rehab at [facility]. No chest pain or shortness of breath. No lightheadedness, dizziness, syncope. Active medicines are Maalox, Tylenol p.r.n., Valium 10 t.i.d., Cardizem CD 180 daily, HydroDIURIL 25 daily, Ativan p.o. every 4 hours p.r.n., mag oxide 400 b.i.d., Lopressor 12.5 b.i.d., nicotine patch 14 mg daily, Protonix 40 mg b.i.d., Minipress 1 mg at bedtime, Zoloft 125 mg daily, Desyrel 100 at night. Fourteen-point review of systems otherwise negative. Vital signs stable. Afebrile. CARDIOVASCULAR: S1, S2. LUNGS: Clear. GI: Soft. ENDOCRINE: BMI is over . ASSESSMENT: 1. Hypercholesterolemia. 2. Hypothyroidism. 3. Alcoholism. 4. Depression. 5. Anxiety. PLAN: Patient is probably stable until she gets to the rehab center. She says Valium is really helping her tonight. Condition stable. MMODL / IJN: [id number] /
--- NOTE | 2021-09-02 10:16 | P.PN ---
Progress Note - Text Progress Note Date: 09/02/21 Interval History: Patient was seen resting in bed. The patient reports she is feeling a little better today. She is currently not reporting any suicidal or homicidal ideation, intention, and/or plan at this time. She states she was experiencing nausea and vomiting yesterday but reports this appears to be improving. She reports no auditory or visual hallucinations. She denies any paranoia or other delusions. She has been adherent with her medications and is not endorsing any side effects at this time. The patient reports her sleep continues to be poor. She states she tosses and turns all night. She reports appetite is better today. The patient is still wishing to go to rehabilitation for Colace disorder but is uncertain about obtaining a ride to the facility this Monday. Mental Status Exam: General Appearance: Patient appears to be stated age is alert, directable, and cooperative. Behavior: Patient is calmly seated without any agitated behavior. Psychomotor activity is normal. Speech: Patient's speech is fluent and nonpressured. Spontaneous. Mood/Affect: Mood is improving mildly, affect is congruent and constricted. Suicidality/Homicidality: Patient denies having any suicidal or homicidal ideation, intention, and/or plan. Perceptions: Patient denies any visual hallucinations and denies any auditory hallucinations Though content/process: There is no evidence of any delusional thought content and thought process is linear and goal-directed. Memory and concentration: AOX3, grossly intact for the purposes of this session Judgment and insight: Improving mildly Vital Signs Temp 96.9 F L 09/02/21 06:00 Pulse 112 H 09/02/21 08:41 Resp 17 09/02/21 06:00 BP 126/73 09/02/21 08:41 Pulse Ox 98 08/31/21 21:00 Laboratory Results - Last 24 Hours 09/01/21 09/01/21 07:08 07:[address] Glu mg/dL 97 Hemoglobin A1c 5.0 Triglycerides 342.00 H Cholesterol 287.00 H LDL Cholesterol, Calc 144.2 H VLDL Cholesterol, Calc 68.40 H HDL Cholesterol 74.40 H Cholesterol/HDL Ratio 3.86 Assessment Major depressive disorder, recurrent, severe PTSD Alcohol use disorder; acute alcohol withdrawal Cannabis use Plan: -Patient continues to meet criteria for inpatient psychiatric admission for symptom stabilization and safety. Patient has signed adult voluntary form and medication consent and was placed in patient's chart. -Patient is admitted under voluntary status to [facility] for stabilization of psychiatric symptoms and safety. Patient signed adult voluntary form and medication consent and is placed in patient's chart. -Medications : Increase Zoloft 150 mg by mouth daily for depression/anxiety/PTSD Increase prazosin to 2 mg by mouth at bedtime for PTSD related nightmares Increase Trazodone to 150 mg at bedtime as needed for insomnia. -Ativan and Haldol PRN for agitation/aggression -CIWA protocol with Ativan PRN for ETOH withdrawal ; Valium 10 mg by mouth 3 times a day for alcohol withdrawal -NRT - nicotine patch -SW on board for discharge planning. Encouraged the patient to participate in milieu.
[2021-09-02] MEDS ORDERED: DIPHENOX-ATROP 2.5-0.025 MG 1 EACH TAB PO PRN (11:02)
[2021-09-02] MEDS: ACETAMINOPHEN TAB 325 MG TAB PO PRN (20:46)
[2021-09-02] MEDS: PRAZOSIN 1 MG CAP PO SCH (20:47)
[2021-09-02] MEDS: traZODone HCL 50 MG TAB PO SCH (20:47)
[2021-09-02] MEDS: LORazepam 1 MG TAB PO PRN (22:37)
[2021-09-03] MEDS: NICOTINE 14MG/24HR PATCH TRANSDERM SCH (09:06)
[2021-09-03] MEDS: PANTOPRAZOLE 40 MG TABLET PO SCH ×2 (09:07→16:58)
[2021-09-03] MEDS: hydroCHLOROthiazide 25 MG TAB PO SCH (09:07)
[2021-09-03] MEDS: DILTIAZEM CD 180 MG CAP.ER.24H PO SCH (09:07)
[2021-09-03] MEDS: METOPROLOL TARTRATE 12.5 MG TAB PO SCH ×3 (09:07→21:23)
[2021-09-03] MEDS: MAGNESIUM OXIDE 400 MG TAB PO SCH ×2 (09:07→21:22)
[2021-09-03] MEDS: SERTRALINE 50 MG TAB PO SCH (09:07)
[2021-09-03] MEDS: diazePAM 5 MG TAB PO SCH ×2 (09:08→21:21)
--- NOTE | 2021-09-03 11:24 | P.PN ---
Progress Note - Text Progress Note Date: 09/03/21 Interval History: Patient was seen resting in bed. Patient reports that she is not feeling good today. The patient continues to endorse elevated anxiety as well as concern about being tapered off her Valium, despite that patient has had 0 on her CIWA score this morning. She is currently not reporting any suicidal or homicidal ideation, intention, and/or plan. She is not reporting auditory or visual hallucinations. The patient is endorsing numerous somatic complaints today. She endorses nausea, headache, vomiting, and generalized pain. She does express that she is unhappy with her physical symptoms but complains of elevated anxiety is her primary concern. The patient tells this provider that she has been expressing panic attacks who presents she was 17 years old. She does appear to be fixated on receiving controlled substances such as benzodiazepines and expresses some concern about not receiving tramadol on the unit despite it being a medication she has been on for years. This provider tried discussing with the patient controlled substances present a danger with how they are practiced and used, especially given her history of alcohol use disorder, however the patient abruptly ended the interview stating that she had a headache. She is scheduled for rehabilitation intake on Monday. Mental Status Exam: General Appearance: Patient appears to be stated age is alert, directable, and cooperative. Behavior: Patient is calmly seated without any agitated behavior. Psychomotor activity is normal. Speech: Patient's speech is fluent and nonpressured. Spontaneous. Mood/Affect: Mood is "not doing good," affect is congruent and irritable. Suicidality/Homicidality: Patient denies having any suicidal or homicidal ideation, intention, and/or plan. Perceptions: Patient denies any visual hallucinations and denies any auditory hallucinations Though content/process: There is no evidence of any delusional thought content and thought process is linear and goal-directed. Some fixation on controlled medications such as benzodiazepines and pain medications. Memory and concentration: AOX3, grossly intact for the purposes of this session Judgment and insight: Improving mildly Vital Signs Temp 96.9 F L 09/02/21 06:00 Pulse 95 09/02/21 16:32 Resp 17 09/02/21 06:00 BP 136/79 09/02/21 16:32 Pulse Ox 98 08/31/21 21:00 Assessment Major depressive disorder, recurrent, severe PTSD Alcohol use disorder Cannabis use Plan: -Patient continues to meet criteria for inpatient psychiatric admission for symptom stabilization and safety. Patient has signed adult voluntary form and medication consent and was placed in patient's chart. -Patient is admitted under voluntary status to [facility] for stabilization of psychiatric symptoms and safety. Patient signed adult voluntary form and medication consent and is placed in patient's chart. -Patient is scheduled for intake at rehab on Monday. In preparation for her intake, we will order PCR test for Covid prepare her prescriptions. -Medications : Continue Zoloft 150 mg by mouth daily for depression/anxiety/PTSD Continue prazosin 2 mg by mouth at bedtime for PTSD related nightmares Continue Trazodone 150 mg at bedtime as needed for insomnia. -Ativan and Haldol PRN for agitation/aggression -Check CIWA every shift. Begin taper of Valium to 10 mg twice daily with the last dose to be given on monday prior to her intake for rehabilitation. -NRT - nicotine patch -SW on board for discharge planning. Encouraged the patient to participate in milieu.
[2021-09-03] MEDS: IBUPROFEN 600 MG TAB PO PRN ×2 (14:02→21:23)
[2021-09-03] MEDS: hydrOXYzine pamoate 25 MG CAP PO PRN (14:03)
[2021-09-03] MEDS: PRAZOSIN 1 MG CAP PO SCH (21:23)
[2021-09-03] MEDS: traZODone HCL 50 MG TAB PO SCH (21:23)
[2021-09-04] MEDS: hydroCHLOROthiazide 25 MG TAB PO SCH (08:13)
[2021-09-04] MEDS: SERTRALINE 50 MG TAB PO SCH (08:13)
[2021-09-04] MEDS: NICOTINE 14MG/24HR PATCH TRANSDERM SCH (08:13)
[2021-09-04] MEDS: DILTIAZEM CD 180 MG CAP.ER.24H PO SCH (08:13)
[2021-09-04] MEDS: MAGNESIUM OXIDE 400 MG TAB PO SCH ×2 (08:13→20:46)
[2021-09-04] MEDS: PANTOPRAZOLE 40 MG TABLET PO SCH ×2 (08:13→18:00)
[2021-09-04] MEDS: METOPROLOL TARTRATE 12.5 MG TAB PO SCH ×3 (08:14→20:46)
[2021-09-04] MEDS: diazePAM 5 MG TAB PO SCH ×2 (08:15→20:45)
[2021-09-04 12:49] VITALS: RESP 16
[2021-09-04] MEDS: IBUPROFEN 600 MG TAB PO PRN (15:06)
[2021-09-04] MEDS: hydrOXYzine pamoate 25 MG CAP PO PRN ×2 (15:07→20:49)
--- NOTE | 2021-09-04 19:34 | PN ---
PROGRESS NOTE DATE OF SERVICE: 09/04/2021. CHIEF COMPLAINT: The patient was admitted for suicidal thinking in the face of heavy alcohol use. She has a long history of alcohol use and significant anxiety. INTERVAL HISTORY: Patient has been doing fairly well overall. She had a quiet day yesterday. She has been attending groups and seems to engage reasonably well in the groups. Her CIWA scores have been zero. She slept fairly well last night. Today she has been up. She comes out on the unit. She interacts with others. It is noteworthy that she continues on Valium 10 mg twice a day. She says she needs the Valium for anxiety. She is scheduled to go into [facility] tomorrow. She seems fairly motivated to address her alcohol issues. She tolerates her psychotropic medications. MENTAL STATUS EXAM: Patient sat without restlessness. Eye contact was fair. Psychomotor activity was somewhat slowed. She answered questions with brief responses. Her thoughts were clear. Her affect was blunted, her mood reserved. She did not appear to be significantly distressed or depressed. There was no indication of thought disorder. She denied thoughts of harm. Cognition was clear. ASSESSMENT: I will continue the current diagnosis and treatment plan. We will continue to make efforts to engage the patient in individual and group therapeutic activities. I will continue psychotropic medications the same, including Zoloft 150 mg a day, trazodone 150 mg a day and Valium 10 mg twice a day. I had an extensive discussion with the patient regarding alcohol withdrawal issues. The patient was quite adamant on the idea that she needed to continue on Valium. She has very little understanding about the issues of withdrawal and the fact that since she is beyond the detox period and risk for DTs and/or seizures, that Valium is not an indication in her treatment. She did say that she would discuss this further with doctors at [facility]. We discussed that she is not truly in withdrawal until Valium is out of the picture altogether. We discussed the time course and nature of withdrawal. I discussed the treatment issues relating to antidepressants and their limited benefits in the first 6 or 8 weeks of withdrawal. We discussed that she will need to work on withdrawal issues once she is off Valium completely. I encouraged her to get off of Valium as soon as possible as part of her treatment process. We will focus on stabilization and discharge planning with anticipated discharge tomorrow to [facility]. MMODL / IJN: [id number] /
[2021-09-04] MEDS: PRAZOSIN 1 MG CAP PO SCH (20:45)
[2021-09-04] MEDS: traZODone HCL 50 MG TAB PO SCH (20:45)
[2021-09-04] MEDS: ACETAMINOPHEN TAB 325 MG TAB PO PRN (20:49)
[2021-09-05 07:22] VITALS: BP 115/61; PULSE 72; TEMP 97.1
[2021-09-05] MEDS: SERTRALINE 50 MG TAB PO SCH (07:36)
[2021-09-05] MEDS: diazePAM 5 MG TAB PO SCH (07:36)
[2021-09-05] MEDS: hydroCHLOROthiazide 25 MG TAB PO SCH (07:37)
[2021-09-05] MEDS: PANTOPRAZOLE 40 MG TABLET PO SCH (07:37)
[2021-09-05] MEDS: NICOTINE 14MG/24HR PATCH TRANSDERM SCH (07:37)
[2021-09-05] MEDS: METOPROLOL TARTRATE 12.5 MG TAB PO SCH (07:37)
[2021-09-05] MEDS: MAGNESIUM OXIDE 400 MG TAB PO SCH (07:38)
[2021-09-05] MEDS: DILTIAZEM CD 180 MG CAP.ER.24H PO SCH (07:38)
--- NOTE | 2021-09-05 19:17 | DS ---
DISCHARGE SUMMARY DATE OF ADMISSION: 08/31/2021 DATE OF DISCHARGE: 09/05/2021 ADMISSION AND DISCHARGE DIAGNOSES: 1. Major depressive disorder, recurrent, severe. 2. Alcohol use disorder, alcohol acute alcohol withdrawal. 3. Post-traumatic stress disorder. 4. Cannabis use. HISTORY OF PRESENTING ILLNESS: The patient is a 45-year-old female. She presented with depression with suicidal thinking in the face of significant alcohol use. She has been having increasing problems with depression, especially over the last two years, in part dealing with some stress issues in her life. There were very complicated family issues. She had a conflict with a housemate whom she discovered to be a pedophile. She ended up leaving the apartment. She began drinking heavily and had been hospitalized six times over the last year for alcohol intoxication. She has had continued struggles over the last six months with drinking. She has continued to drink heavily leading up to this hospitalization. She had a full range of depression symptoms. She described anxiety and panic issues. She does report a significant history of trauma. There had not been any indications of thought disorder. She had been on Zoloft in the past, with minimal benefits, though she acknowledged she was drinking at the same time she was using the antidepressant. She was admitted for further evaluation. MENTAL STATUS EXAM: The patient had poor hygiene and grooming. Psychomotor behavior was unremarkable. Her speech was fluent and non-pressured. Her mood was depressed, affect malaise. She was denying thoughts of harm to self or others. There was no indication of thought disorder. She was oriented and alert. PHYSICAL EXAM: Noncontributory. Please see admission note for details. COURSE OF HOSPITALIZATION: The patient was admitted for comprehensive medical, psychiatric and psychosocial evaluation. She was engaged in individual and group therapeutic activities. On admission she was followed on a withdrawal protocol. She was started on Zoloft. The dose was titrated up to 150 mg a day. She was started on prazosin with an increase in dose to 2 mg a day for PTSD-related nightmares. She was also started on trazodone titrated to 150 mg a day. Early on the patient showed anxiety and depression. She was cooperative with care. She was sleeping poorly early on. She said she would toss and turn all night. She did note some improvement in her mood and outlook. She had made contact for intake for a rehabilitation facility. She was started on Valium with a plan to discontinue Valium on the day of discharge. As her hospitalization progressed, the patient did fairly well. She did attend groups and seemed to engage appropriately. CIWA scores dropped to zero. Sleep improved. She was set up for followup at [facility] with an interview today. She was able to engage appropriately in discharge planning. CONDITION AT DISCHARGE: Patient was stable. Her mood was improved. She denied thoughts of harm. She continued to show signs of early alcohol withdrawal without significant detox issues. RECOMMENDATIONS AND FOLLOWUP: Patient is discharged for an intake interview with [facility]. Discharge psychotropic medications include trazodone 150 mg at bedtime. She had been on Valium 10 mg twice a day with the plan to discontinue Valium at the time of discharge. She will be transported to [facility] for her intake evaluation. TERESA / LILY: [id number] /
== END 2021-09-05 08:28 | disposition other institution (70) | DRG 885 ==
LOC: EC 20:40 → 3MHU 08-31 16:16
PROVIDERS: ADMIT Psychiatry & Neurology Psychiatry; ATTEND Psychiatry & Neurology Psychiatry
DX: F33.2 Major depressive disorder, recurrent severe without psychotic features (principal); F10.239 Alcohol dependence with withdrawal, unspecified; R45.851 Suicidal ideations; Z16.24 Resistance to multiple antibiotics; F12.90 Cannabis use, unspecified, uncomplicated; F17.200 Nicotine dependence, unspecified, uncomplicated; F10.229 Alcohol dependence with intoxication, unspecified; E78.00 Pure hypercholesterolemia, unspecified; E03.9 Hypothyroidism, unspecified; F41.0 Panic disorder [episodic paroxysmal anxiety]; F43.10 Post-traumatic stress disorder, unspecified; I10 Essential (primary) hypertension; Z79.899 Other long term (current) drug therapy; Z59.0 Homelessness; Z20.822 Contact with and (suspected) exposure to COVID-19
CPT/HCPCS: 80053; 80061; 80306; 81001; 81025; 82075; 83036; 84443; 85025; 87635; 93005

== ENCOUNTER 2022-03-14 15:18 | Inpatient (IN) | payer OTHER ==
[2022-03-14] MEDS ORDERED: ONDANSETRON 4 MG/2 ML VIAL IVP STA (15:38)
[2022-03-14] MEDS ORDERED: KETOROLAC 15 MG/ML 1 ML VIAL IVP STA (15:38)
[2022-03-14] MEDS ORDERED: SODIUM CHLORIDE 0.9% 1,000 ML IV STA (15:38)
[2022-03-14] MEDS ORDERED: FAMOTIDINE 20 MG/2 ML VIAL IV STA (15:39)
--- NOTE | 2022-03-14 16:24 | ED ---
General Adult HPI - General Chief complaint: Upper Respiratory Infection Stated complaint: Chest Pain, GI issues Time Seen by Provider: 03/14/22 15:25 Source: patient, RN notes reviewed Mode of arrival: ambulatory Limitations: no limitations - History of Present Illness Initial comments: This is a 46-year-old female who presents to the emergency department for multiple issues. States that for the last week, she has had chest pain and some shortness of breath. She has had full cardiac workups in the past, and has only been diagnosed with tachycardia. Additionally, she has been having right upper quadrant pain wrapping around into the back, abdominal cramping, nausea, and diarrhea. She has had a few episodes of emesis. She also states that her legs have been numb on the lateral aspects bilaterally. The numbness terminates above the knees. She was admitted from 02/16 through 02/24 regarding the bilateral leg numbness, she had an extensive workup including a spinal tap and an MRI of the cervical, thoracic, and lumbar spine. The workup did not provide a definitive cause of her symptoms. MRI of the cervical spine revealed disc herniation and the thoracic and lumbar spine revealed degenerative changes. It was advised she undergo an EMG on an outpatient basis for evaluation of a polyneuropathy in her legs. Today she states that the legs are still numb, which has been present for about a month at this point. She has not yet had the EMG. Also feels like she is getting weak and having difficulty walking associated with the numbness. She also notes dizziness, hedaches, and congestion that have been present for the last few days. - Related Data Home Medications Medication Instructions Recorded Confirmed Furosemide [Lasix] 20 mg PO DAILY 02/16/22 03/14/22 Metoprolol Tartrate [Lopressor] 12.5 mg PO TID 02/16/22 03/14/22 Pantoprazole [Protonix] 40 mg PO BID PRN 02/16/22 03/14/22 Prazosin HCl 2 mg PO HS 02/16/22 03/14/22 Gabapentin [Neurontin] 300 mg PO TID 03/14/22 03/14/22 traMADol HCL 50 mg PO TID PRN 03/14/22 03/14/22 Previous Rx's Medication Instructions Recorded Diltiazem Cd [Cardizem CD] 180 mg PO DAILY 30 Days 09/03/21 Sertraline [Zoloft] 150 mg PO DAILY 30 Days tab 09/03/21 traZODone HCL [Desyrel] 150 mg PO HS 30 Days tab 09/03/21 Allergies Allergy/AdvReac Type Severity Reaction Status Date / Time Penicillins Allergy Unknown Verified 03/14/22 17:00 Childhood Review of Systems ROS Statement: Those systems with pertinent positive or pertinent negative responses have been documented in the HPI. ROS Other: All systems not noted in ROS Statement are negative. Constitutional: Denies: fever, chills ENT: Reports: congestion. Denies: ear pain, throat pain Respiratory: Reports: cough, dyspnea Cardiovascular: Reports: chest pain. Denies: palpitations Gastrointestinal: Reports: abdominal pain, nausea, vomiting. Denies: diarrhea Genitourinary: Denies: urgency, dysuria Musculoskeletal: Denies: back pain Skin: Denies: rash Neurological: Denies: headache Past Medical History Past Medical History: Hypertension Additional Past Medical History / Comment(s): Pt states she has an arrythmia, pancreatitis and chronic back pain. Herniated Disk. History of Any Multi-Drug Resistant Organisms: CRE, Other MDRO Date of last positivie culture/infection: 07/16/21 MDRO Source:: URINE Past Surgical History: Appendectomy, Orthopedic Surgery Additional Past Surgical History / Comment(s): titanium wrist, Exploratory surgery. Past Anesthesia/Blood Transfusion Reactions: No Reported Reaction Past Psychological History: Anxiety, Depression Smoking Status: Former smoker Past Alcohol Use History: None Reported Past Drug Use History: None Reported - Past Family History Father History Unknown: Yes Family Medical History: Osteoarthritis (OA) General Exam Limitations: no limitations General appearance: alert, in no apparent distress Head exam: Present: atraumatic, normocephalic, normal inspection Respiratory exam: Present: normal lung sounds bilaterally. Absent: respiratory distress, wheezes, rales, rhonchi, stridor Cardiovascular Exam: Present: regular rate, normal rhythm, normal heart sounds. Absent: systolic murmur, diastolic murmur, rubs, gallop, clicks GI/Abdominal exam: Present: soft, tenderness (RUQ), normal bowel sounds. A bsent: distended, guarding, rebound, rigid Expanded GI/Abdominal exam: Absent: Demarco's sign Neurological exam: Present: alert, oriented X3, CN II-XII intact Psychiatric exam: Present: normal affect, normal mood Skin exam: Present: warm, dry, intact, normal color. Absent: rash Course Vital Signs 03/14/22 03/14/22 03/14/22 15:21 21:26 21:40 Temperature 98.1 F 98 F Pulse Rate 83 64 Pulse Rate [ 72 Pulse Oximetery ] Respiratory 18 20 18 Rate Blood Pressure 141/87 153/94 Blood Pressure 118/65 [Right Arm] O2 Sat by Pulse 98 96 97 Oximetry 03/14/22 22:23 Temperature Pulse Rate Pulse Rate [ Pulse Oximetery ] Respiratory 18 Rate Blood Pressure Blood Pressure [Right Arm] O2 Sat by Pulse Oximetry Medical Decision Making - Medical Decision Making This is a 46-year-old female who presents to the emergency department for right upper quadrant pain, chest pain, shortness of breath, and sinus pain for the last week. Ultrasound of the gallbladder was obtained, this did not reveal any acute processes. Lab work revealed an elevated d-dimer, CTA was performed, which revealed bilateral lower lobe pulmonary emboli of the subsegmental branches. No right heart strain was noted. Patient admitted and started on high intensity heparin protocol. This case was discussed in detail with the attending ED physician. Presentation, findings, and treatment plan discussed in detail as well. - Lab Data Result diagrams: 03/14/22 15:53 03/14/22 17:03 Lab Results 03/14/22 03/14/22 03/14/22 Range/Units 15:53 15:53 15:53 WBC 5.6 (3.8-10.6) k/uL RBC 3.95 (3.80-5.40) m/uL Hgb 12.2 (11.4-16.0) gm/dL Hct 36.7 (34.0-46.0) % MCV 93.0 (80.0-100.0) fL MCH 30.8 (25.0-35.0) pg MCHC 33.1 (31.0-37.0) g/dL RDW 13.0 (11.5-15.5) % Plt Count 197 (150-450) k/uL MPV 7.4 Neutrophils % 71 % Lymphocytes % 21 % Monocytes % 4 % Eosinophils % 2 % Basophils % 1 % Neutrophils # 4.0 (1.3-7.7) k/uL Lymphocytes # 1.2 (1.0-4.8) k/uL Monocytes # 0.2 (0-1.0) k/uL Eosinophils # 0.1 (0-0.7) k/uL Basophils # 0.0 (0-0.2) k/uL APTT (22.0-30.0) sec D-Dimer 0.80 H (<0.60) mg/L FEU Sodium (137-145) mmol/L Potassium (3.5-5.1) mmol/L Chloride (98-107) mmol/L Carbon Dioxide (22-30) mmol/L Anion Gap mmol/L BUN (7-17) mg/dL Creatinine (0.52-1.04) mg/dL Est GFR (CKD-EPI)AfAm (>60 ml/min/1.73 sqM) Est GFR (CKD-EPI)NonAf (>60 ml/min/1.73 sqM) Glucose (74-99) mg/dL Calcium (8.4-10.2) mg/dL Total Bilirubin (0.2-1.3) mg/dL AST (14-36) U/L ALT (4-34) U/L Alkaline Phosphatase (38-126) U/L Troponin I (0.000-0.034) ng/mL Total Protein (6.3-8.2) g/dL Albumin (3.5-5.0) g/dL Amylase (30-110) U/L Lipase (23-300) U/L Urine Color Yellow Urine Appearance Clear (Clear) Urine pH 5.5 (5.0-8.0) Ur Specific [place] 1.018 (1.001-1.035) Urine Protein Trace H (Negative) Urine Glucose (UA) Negative (Negative) Urine Ketones Negative (Negative) Urine Blood Large H (Negative) Urine Nitrite Negative (Negative) Urine Bilirubin Negative (Negative) Urine Urobilinogen <2.0 (<2.0) mg/dL Ur Leukocyte Esterase Large H (Negative) Urine RBC 3 (0-5) /hpf Urine WBC 3 (0-5) /hpf Ur Squamous Epith Cells 2 (0-4) /hpf Urine Bacteria Rare H (None) /hpf Urine Mucus Occasional H (None) /hpf Urine HCG, Qual (Not Detectd) Coronavirus (PCR) (Not Detectd) Influenza Type A RNA (Not Detectd) Influenza Type B (PCR) (Not Detectd) 03/14/22 03/14/22 03/14/22 Range/Units 15:53 15:53 15:53 WBC (3.8-10.6) k/uL RBC (3.80-5.40) m/uL Hgb (11.4-16.0) gm/dL Hct (34.0-46.0) % MCV (80.0-100.0) fL MCH (25.0-35.0) pg MCHC (31.0-37.0) g/dL RDW (11.5-15.5) % Plt Count (150-450) k/uL MPV Neutrophils % % Lymphocytes % % Monocytes % % Eosinophils % % Basophils % % Neutrophils # (1.3-7.7) k/uL Lymphocytes # (1.0-4.8) k/uL Monocytes # (0-1.0) k/uL Eosinophils # (0-0.7) k/uL Basophils # (0-0.2) k/uL APTT (22.0-30.0) sec D-Dimer (<0.60) mg/L FEU Sodium (137-145) mmol/L Potassium (3.5-5.1) mmol/L Chloride (98-107) mmol/L Carbon Dioxide (22-30) mmol/L Anion Gap mmol/L BUN (7-17) mg/dL Creatinine (0.52-1.04) mg/dL Est GFR (CKD-EPI)AfAm (>60 ml/min/1.73 sqM) Est GFR (CKD-EPI)NonAf (>60 ml/min/1.73 sqM) Glucose (74-99) mg/dL Calcium (8.4-10.2) mg/dL Total Bilirubin (0.2-1.3) mg/dL AST (14-36) U/L ALT (4-34) U/L Alkaline Phosphatase (38-126) U/L Troponin I <0.012 (0.000-0.034) ng/mL Total Protein (6.3-8.2) g/dL Albumin (3.5-5.0) g/dL Amylase (30-110) U/L Lipase (23-300) U/L Urine Color Urine Appearance (Clear) Urine pH (5.0-8.0) Ur Specific [place] (1.001-1.035) Urine Protein (Negative) Urine Glucose (UA) (Negative) Urine Ketones (Negative) Urine Blood (Negative) Urine Nitrite (Negative) Urine Bilirubin (Negative) Urine Urobilinogen (<2.0) mg/dL Ur Leukocyte Esterase (Negative) Urine RBC (0-5) /hpf Urine WBC (0-5) /hpf Ur Squamous Epith Cells (0-4) /hpf Urine Bacteria (None) /hpf Urine Mucus (None) /hpf Urine HCG, Qual (Not Detectd) Coronavirus (PCR) Not Detected (Not Detectd) Influenza Type A RNA Not Detected (Not Detectd) Influenza Type B (PCR) Not Detected (Not Detectd) 03/14/22 03/14/22 03/14/22 Range/Units 15:53 15:53 17:03 WBC (3.8-10.6) k/uL RBC (3.80-5.40) m/uL Hgb (11.4-16.0) gm/dL Hct (34.0-46.0) % MCV (80.0-100.0) fL MCH (25.0-35.0) pg MCHC (31.0-37.0) g/dL RDW (11.5-15.5) % Plt Count (150-450) k/uL MPV Neutrophils % % Lymphocytes % % Monocytes % % Eosinophils % % Basophils % % Neutrophils # (1.3-7.7) k/uL Lymphocytes # (1.0-4.8) k/uL Monocytes # (0-1.0) k/uL Eosinophils # (0-0.7) k/uL Basophils # (0-0.2) k/uL APTT 22.7 (22.0-30.0) sec D-Dimer (<0.60) mg/L FEU Sodium 137 (137-145) mmol/L Potassium 4.1 (3.5-5.1) mmol/L Chloride 111 H (98-107) mmol/L Carbon Dioxide 19 L (22-30) mmol/L Anion Gap 7 mmol/L BUN 12 (7-17) mg/dL Creatinine 0.69 (0.52-1.04) mg/dL Est GFR (CKD-EPI)AfAm >90 (>60 ml/min/1.73 sqM) Est GFR (CKD-EPI)NonAf >90 (>60 ml/min/1.73 sqM) Glucose 72 L (74-99) mg/dL Calcium 7.9 L (8.4-10.2) mg/dL Total Bilirubin 0.6 (0.2-1.3) mg/dL AST 26 (14-36) U/L ALT 16 (4-34) U/L Alkaline Phosphatase 56 (38-126) U/L Troponin I (0.000-0.034) ng/mL Total Protein 6.1 L (6.3-8.2) g/dL Albumin 3.4 L (3.5-5.0) g/dL Amylase 45 (30-110) U/L Lipase 39 (23-300) U/L Urine Color Urine Appearance (Clear) Urine pH (5.0-8.0) Ur Specific [place] (1.001-1.035) Urine Protein (Negative) Urine Glucose (UA) (Negative) Urine Ketones (Negative) Urine Blood (Negative) Urine Nitrite (Negative) Urine Bilirubin (Negative) Urine Urobilinogen (<2.0) mg/dL Ur Leukocyte Esterase (Negative) Urine RBC (0-5) /hpf Urine WBC (0-5) /hpf Ur Squamous Epith Cells (0-4) /hpf Urine Bacteria (None) /hpf Urine Mucus (None) /hpf Urine HCG, Qual Not Detected (Not Detectd) Coronavirus (PCR) (Not Detectd) Influenza Type A RNA (Not Detectd) Influenza Type B (PCR) (Not Detectd) - Radiology Data Radiology results: report reviewed, image reviewed Disposition Clinical Impression: Bilateral pulmonary embolism Disposition: ADMITTED IP TO THIS HOSP
[2022-03-14 16:49] LABS: Basophils % (A) 1 %; Eosinophils # (A) 0.1 k/uL (0-0.7); Eosinophils % (A) 2 %; HCT 36.7 % (34.0-46.0); HGB 12.2 gm/dL (11.4-16.0); Lymphocytes # (A) 1.2 k/uL (1.0-4.8); Lymphocytes % (A) 21 %; MCH 30.8 pg (25.0-35.0); MCHC 33.1 g/dL (31.0-37.0); Mean Platelet Volume 7.4; Monocytes # (A) 0.2 k/uL (0-1.0); Monocytes % (A) 4 %; Neutrophils % (A) 71 %; Platelet Count 197 k/uL (150-450); RBC 3.95 m/uL (3.80-5.40); WBC 5.6 k/uL (3.8-10.6)
--- NOTE | 2022-03-14 17:25 | US ---
EXAMINATION TYPE: US gallbladder DATE OF EXAM: 03/14/2022 COMPARISON: CT abdomen pelvis 02/16/2022 CLINICAL HISTORY: RUQ pain, nausea/vomiting. EXAM MEASUREMENTS: Liver Length: 16.0 cm Gallbladder Wall: 0.2 cm CBD: 0.3 cm Right Kidney: 10.0 x 5.2 x 4.5 cm Patient of very large body habitus with severe overlying bowel gas. Technically difficult, limited st udy. Pancreas: Obscured by bowel gas Liver: Within normal limits. Gallbladder: wnl Evidence for sonographic Demarco's sign: no CBD: very limited visualization Right Kidney: wnl IMPRESSION: Limited exam without evidence for acute process. The gallbladder is within normal limits.
[2022-03-14 17:39] LABS: ALT 16 U/L (4-34); African American GFR (CKD) >90 (>60 ml/min/1.73 sqM); Amylase 45 U/L (30-110); Anion Gap 7 mmol/L; Blood Urea Nitrogen 12 mg/dL (7-17); Calcium 7.9 mg/dL (8.4-10.2); Carbon Dioxide 19 mmol/L (22-30); Chloride 111 mmol/L (98-107); Glucose 72 mg/dL (74-99); Lipase 39 U/L (23-300); Non-African American GFR(CKD) >90 (>60 ml/min/1.73 sqM); Sodium 137 mmol/L (137-145); Total Bilirubin 0.6 mg/dL (0.2-1.3)
[2022-03-14 17:43] LABS: AST 26 U/L (14-36); Albumin 3.4 g/dL (3.5-5.0); Potassium 4.1 mmol/L (3.5-5.1); Total Protein 6.1 g/dL (6.3-8.2)
[2022-03-14 17:44] LABS: Alkaline Phosphatase 56 U/L (38-126)
[2022-03-14] MEDS ORDERED: DEXAMETHASONE SOD PHOSPHATE 10 MG/ML 1 ML VIAL IVP ONE (17:46)
[2022-03-14] MEDS ORDERED: diphenhydrAMINE 50 MG/ML 1 ML VIAL IVP STA (17:46)
[2022-03-14 17:50] LABS: Appearance,Urine Clear (Clear); Bacteria,Urine Rare /hpf; Bilirubin,Urine Negative (Negative); Blood,Urine Large (Negative); Color,Urine Yellow; Glucose,Urine (UA) Negative (Negative); Ketones,Urine Negative (Negative); Leukocyte Esterase,Urine Large (Negative); Mucus,Urine Occasional /hpf; Nitrite,Urine Negative (Negative); PH, Urine 5.5 (5.0-8.0); Protein,Urine Trace (Negative); RBC,Urine 3 /hpf (0-5); Specific Gravity,Urine 1.018 (1.001-1.035); Squamous Epithelial Cell,Urine 2 /hpf (0-4); Urobilinogen,Urine <2.0 mg/dL (<2.0); WBC,Urine 3 /hpf (0-5)
--- NOTE | 2022-03-14 19:06 | CT ---
EXAMINATION TYPE: CT chest angio for PE CT DLP: 729.8 mGycm, Automated exposure control for dose reduction was used. DATE OF EXAM: 03/14/2022 6:43 PM COMPARISON: Chest radiograph from 07/17/2021. Multiple CTs of the chest with most recent on 02/20/2021. CLINICAL INDICATION:Female, 46 years old with history of shortness of breath, chest pain, elevated d- dimer; chest pain, elevated d-dimer, SOB TECHNIQUE/CONTRAST: CTA scan of the thorax is performed with IV Contrast, patient injected with 74cc mL of Isovue 370, pu lmonary embolism protocol. MIP images are created and reviewed. FINDINGS: Pulmonary Artery: Bilateral pulmonary emboli involving the lower lobes. No evidence of right heart st rain. The pulmonary artery is of normal size. Lungs/Pleura: No evidence of focal consolidation, pleural effusion or pneumothorax. Airway: Large airways are patent. Heart: Within normal limits for size.. Vasculature: No evidence of aortic aneurysm. Mediastinum: No gross evidence of adenopathy. Musculoskeletal: No acute osseous abnormalities. Multilevel disc degeneration changes and facet arthr opathy are present. Soft Tissues: Unremarkable. Lower neck: No significant findings. Upper Abdomen: No significant findings. IMPRESSION: Bilateral lower lobe pulmonary emboli of the subsegmental branches. No evidence of right heart strain .
[2022-03-14] MEDS ORDERED: HEPARIN SODIUM 1,000 UN/ML (10ML VL) IV ONE (20:12)
[2022-03-14] MEDS ORDERED: HEPARIN SODIUM 1,000 UN/ML (10ML VL) IV PRN (20:12)
[2022-03-14] MEDS ORDERED: NALOXONE 0.4 MG/ML 1 ML VIAL IV PRN (20:45)
[2022-03-14] MEDS ORDERED: LORazepam 0.5 MG TAB PO PRN (20:45)
[2022-03-14] MEDS ORDERED: ONDANSETRON 4 MG/2 ML VIAL IVP PRN (20:45)
[2022-03-14] MEDS ORDERED: ACETAMINOPHEN TAB 325 MG TAB PO PRN (20:45)
[2022-03-14] MEDS ORDERED: oxyCODONE-APAP 5-325MG 1 EACH TAB PO PRN (20:45)
[2022-03-14] MEDS: HEPARIN SOD,PORK IN 0.45% NACL 25,000 UNIT in 0.45% NACL 1 250ML.BAG IV SCH (21:22)
[2022-03-14] MEDS: HYDROcodone/APAP 5-325MG 1 EACH TAB PO PRN (22:01)
[2022-03-14] MEDS ORDERED: traMADol 50 MG TAB PO PRN (22:07)
[2022-03-14] MEDS: METOPROLOL TARTRATE 12.5 MG TAB PO SCH (23:19)
[2022-03-14] MEDS: traZODone HCL 50 MG TAB PO SCH (23:19)
[2022-03-14] MEDS: GABAPENTIN 300 MG CAP PO SCH (23:19)
[2022-03-14] MEDS: PRAZOSIN 1 MG CAP PO SCH (23:19)
[2022-03-15] MEDS: METOPROLOL TARTRATE 12.5 MG TAB PO SCH ×3 (09:09→21:01)
[2022-03-15] MEDS: GABAPENTIN 300 MG CAP PO SCH ×3 (09:09→21:03)
[2022-03-15] MEDS: PANTOPRAZOLE 40 MG TABLET PO PRN ×2 (09:09→16:27)
[2022-03-15] MEDS: DILTIAZEM CD 180 MG CAP.ER.24H PO SCH (09:09)
[2022-03-15] MEDS: FUROSEMIDE 20 MG TAB PO SCH (09:09)
[2022-03-15] MEDS: SERTRALINE 50 MG TAB PO SCH (09:09)
[2022-03-15] MEDS: HYDROcodone/APAP 5-325MG 1 EACH TAB PO PRN ×3 (09:14→21:02)
[2022-03-15] MEDS: HEPARIN SOD,PORK IN 0.45% NACL 25,000 UNIT in 0.45% NACL 1 250ML.BAG IV SCH (11:37)
--- NOTE | 2022-03-15 14:34 | HP ---
HISTORY AND PHYSICAL This is a 46-year-old white female with a past medical history of alcoholism a few weeks ago. She came back to the hospital today for chest pain and shortness of breath. She has had full cardiac workups in the past. She has been having tachycardia. CTA shows pulmonary embolism, unclear etiology. She has been having leg numbness in the past also. MRI of the cervical spine revealed cervical disc herniation and degenerative disc disease, for which she was supposed to get an EMG as an outpatient. She is still numb. She did not get her EMGs done. She came in with shortness of breath and congestion and tachycardia. HOME MEDICINES: Lasix 20 daily, Lopressor 12.5 t.i.d., Protonix 40 mg b.i.d., 2 mg at night, Neurontin 300 t.i.d., tramadol 50 t.i.d. ALLERGIES: PENICILLIN. REVIEW OF SYSTEMS: Fourteen-point review of systems otherwise negative. PAST MEDICAL HISTORY: Hypertension, disease, arthritis of the wrist, alcoholism depression, herniated disc. SURGERIES: Appendectomy and orthopedic surgeries. PHYSICAL EXAMINATION: Vital signs reviewed. She is alert and oriented. No acute distress. Head normocephalic, atraumatic. Lungs showed no rales, rhonchi or wheeze. Cardiovascular S1, S2. Abdomen soft, nontender mass. Hematologic negative Homans. Psych fair mood and affect. Integument with no rash or excoriations . Pulse is 60s to 80s, respiratory rate 18 to 20, blood pressure is 140s to 150s over 87 to 94, O2 97 to 98. She had right upper quadrant , chest pain, shortness of breath, sinus pain for about a week. Ultrasound of gallbladder in the ER was negative. Elevated D-dimer. CTA was performed. Bilateral lower lobe emboli plus branches. No heart strain. She was placed on heparin protocol. Wait for Pulmonary. She has large leukocyte esterase; will rule out bacterial infection. Continue with heparin drip until we find out about pulmonary embolism. Please see further orders. Pulmonary consult. MMODL / IJN: [id number] /
--- NOTE | 2022-03-15 18:34 | P.CNPUL ---
History of Present Illness Consult date: 03/15/22 Reason for consult: dyspnea, chest pain, hypoxemia Chief complaint: Shortness of breath and atypical chest pain History of present illness: Patient is a pleasant 46-year-old female with remote history of smoking and nicotine use with history of cold with infection in October 2021 patient was not hospitalized but has severe symptoms requiring antibiotics with Z-Roger as well as steroids 2 times, patient recovered from colon infection was vaccinated with the last shot in January so far she had 2 shots of cold with, patient starting having multiple nonspecific symptoms including swelling on the lower extremity paresthesia and numbness in the toes as well as the leg increasing shortness of breath chest tightness and pain, patient had an extensive workup including cardiology workup and was admitted into the hospital from February 16 to February 24 which includes spinal tap as well as MRI of the thoracic cervical and lumbar conclusive diagnosis was made and eventually was discharged now she started having some shortness of breath for last several days as well as pleuritic chest pain decided to come into the hospital for further evaluation also feeling congested with headache and dizziness. On arrival she was afebrile with normal heart rate and respiratory rate, blood pressure was mildly elevated oxygen saturation was mid to high 90s, labs were significant for normal CBC, BUN/creatinine normal platelet counts were normal, d-dimer was elevated 0.8 with a baseline of 0.6. The leukocyte esterase was positive in the urine, troponin was normal, overweight 19 as well as influenza A and B were negative, she underwent computed tomography scan of the chest came back positive for pulmonary embolism, bilateral in the lower lobes, patient started on heparin drip. Currently patient is on home medications including pain medicine and heparin drip as per protocol Review of Systems All systems: negative Past Medical History Past Medical History: Hypertension Additional Past Medical History / Comment(s): Pt states she has an arrythmia, pancreatitis and chronic back pain. Herniated Disk. History of Any Multi-Drug Resistant Organisms: CRE, Other MDRO Date of last positivie culture/infection: 07/16/21 MDRO Source:: URINE Past Surgical History: Appendectomy, Orthopedic Surgery Additional Past Surgical History / Comment(s): titanium wrist, Exploratory surgery. Past Anesthesia/Blood Transfusion Reactions: No Reported Reaction Past Psychological History: Anxiety, Depression Smoking Status: Former smoker Past Alcohol Use History: None Reported Past Drug Use History: None Reported - Past Family History Father History Unknown: Yes Family Medical History: Osteoarthritis (OA) Medications and Allergies Home Medications Medication Instructions Recorded Confirmed Type Diltiazem Cd [Cardizem CD] 180 mg PO DAILY 30 Days 09/03/21 03/14/22 Rx Sertraline [Zoloft] 150 mg PO DAILY 30 Days tab 09/03/21 03/14/22 Rx traZODone HCL [Desyrel] 150 mg PO HS 30 Days tab 09/03/21 03/14/22 Rx Furosemide [Lasix] 20 mg PO DAILY 02/16/22 03/14/22 History Metoprolol Tartrate [Lopressor] 12.5 mg PO TID 02/16/22 03/14/22 History Pantoprazole [Protonix] 40 mg PO BID PRN 02/16/22 03/14/22 History Prazosin HCl 2 mg PO HS 02/16/22 03/14/22 History Gabapentin [Neurontin] 300 mg PO TID 03/14/22 03/14/22 History traMADol HCL 50 mg PO TID PRN 03/14/22 03/14/22 History Allergies Allergy/AdvReac Type Severity Reaction Status Date / Time Penicillins Allergy Unknown Verified 03/14/22 17:00 Childhood Physical Exam Vitals: Vital Signs Temp Pulse Pulse Resp BP BP Pulse Ox 03/15/22 16:00 98.0 F 66 16 121/60 97 03/15/22 14:00 62 18 03/15/22 12:00 98.1 F 62 18 166/81 97 03/15/22 08:00 98.1 F 64 18 152/72 97 03/15/22 03:06 80 18 114/78 96 03/15/22 01:26 18 03/14/22 23:17 98.2 F 68 18 120/84 96 03/14/22 22:23 18 03/14/22 21:40 98 F 72 18 118/65 97 03/14/22 21:26 64 20 153/94 96 Intake and Output 03/15/22 03/15/22 03/15/22 06:59 14:59 22:59 Intake Total 232.688 Balance 232.688 Intake: Intake, IV Titration 232.688 Amount Heparin Sod,Pork in 0.45% 232.688 NaCl 25,000 unit In 0.45 % NaCl 1 250ml.bag @ 18 UNITS/KG/HR 16.329 mls/hr IV .[id number] [facility] Rx#: [id number] Other: # Voids 1 5 - Constitutional General appearance: average body habitus, cooperative, disheveled - EENT Eyes: EOMI, PERRLA ENT: normal oropharynx Ears: bilateral: normal - Neck Neck: normal ROM Carotids: bilateral: upstroke normal Thyroid: negative: normal size - Respiratory Respiratory: bilateral: CTA - Cardiovascular Rhythm: regular Heart sounds: normal: S1, S2 - Integumentary Integumentary: normal turgor - Neurologic Neurologic: CNII-XII intact - Musculoskeletal Musculoskeletal: gait normal, generalized weakness, strength equal bilaterally - Psychiatric Psychiatric: A&O x's 3, appropriate affect, intact judgment & insight Results - Laboratory Findings CBC and BMP: 03/14/22 15:53 03/14/22 17:03 PT/INR, D-dimer D-Dimer 0.80 mg/L FEU (<0.60) H 03/14/22 15:53 Abnormal lab findings: Abnormal Labs 03/14/22 03/14/22 03/14/22 15:53 15:53 17:03 APTT D-Dimer 0.80 H Chloride 111 H Carbon Dioxide 19 L Glucose 72 L Calcium 7.9 L Total Protein 6.1 L Albumin 3.4 L Urine Protein Trace H Urine Blood Large H Ur Leukocyte Esterase Large H Urine Bacteria Rare H Urine Mucus Occasional H 03/15/22 04:00 APTT 61.0 H D-Dimer Chloride Carbon Dioxide Glucose Calcium Total Protein Albumin Urine Protein Urine Blood Ur Leukocyte Esterase Urine Bacteria Urine Mucus - Diagnostic Findings CT scan - chest: report reviewed, image reviewed (Finding as noted above) Assessment and Plan Assessment: Acute pulmonary embolism History of overweight 3 months ago Hypertension hypertensive cardiovascular disease History of diastolic heart failure History of neuropathy Plan: Continue IV heparin switched to direct oral anticoagulant tomorrow start with EIQUIS 10 mg 2 times a day for 7 days then 5 mg 2 times a day for a period of at least a year Duplex ultrasound of the lower extremity can be performed if not done Time with Patient: Greater than 30
[2022-03-15] MEDS: traZODone HCL 50 MG TAB PO SCH (21:01)
[2022-03-15] MEDS: PRAZOSIN 1 MG CAP PO SCH (23:29)
[2022-03-16 01:34] LABS: DNA Double-Stranded NEGATIVE (NEGATIVE)
[2022-03-16] MEDS: HEPARIN SOD,PORK IN 0.45% NACL 25,000 UNIT in 0.45% NACL 1 250ML.BAG IV SCH ×2 (06:47→23:21)
[2022-03-16 08:58] LABS: Basophils % (A) 1 %; Eosinophils # (A) 0.2 k/uL (0-0.7); Eosinophils % (A) 3 %; HCT 36.3 % (34.0-46.0); Lymphocytes # (A) 1.8 k/uL (1.0-4.8); Lymphocytes % (A) 37 %; MCH 31.3 pg (25.0-35.0); MCHC 32.9 g/dL (31.0-37.0); MCV 95.1 fL (80.0-100.0); Mean Platelet Volume 7.6; Monocytes # (A) 0.3 k/uL (0-1.0); Monocytes % (A) 5 %; Neutrophils # (A) 2.5 k/uL (1.3-7.7); Neutrophils % (A) 51 %; Platelet Count 217 k/uL (150-450); RBC 3.82 m/uL (3.80-5.40); RDW 13.8 % (11.5-15.5); WBC 4.9 k/uL (3.8-10.6)
[2022-03-16] MEDS: SERTRALINE 50 MG TAB PO SCH (09:02)
[2022-03-16] MEDS: DILTIAZEM CD 180 MG CAP.ER.24H PO SCH (09:02)
[2022-03-16] MEDS: FUROSEMIDE 20 MG TAB PO SCH (09:02)
[2022-03-16] MEDS: HYDROcodone/APAP 5-325MG 1 EACH TAB PO PRN ×3 (09:02→21:11)
[2022-03-16] MEDS: METOPROLOL TARTRATE 12.5 MG TAB PO SCH ×3 (09:02→21:12)
[2022-03-16] MEDS: GABAPENTIN 300 MG CAP PO SCH ×3 (09:02→21:12)
[2022-03-16 09:37] LABS: ALT 15 U/L (4-34); AST 21 U/L (14-36); African American GFR (CKD) >90 (>60 ml/min/1.73 sqM); Albumin 3.2 g/dL (3.5-5.0); Alkaline Phosphatase 54 U/L (38-126); Anion Gap 5 mmol/L; Blood Urea Nitrogen 16 mg/dL (7-17); Calcium 8.3 mg/dL (8.4-10.2); Carbon Dioxide 23 mmol/L (22-30); Chloride 111 mmol/L (98-107); Glucose 90 mg/dL (74-99); Non-African American GFR(CKD) >90 (>60 ml/min/1.73 sqM); Potassium 4.3 mmol/L (3.5-5.1); Sodium 139 mmol/L (137-145); Total Bilirubin 0.4 mg/dL (0.2-1.3); Total Protein 5.8 g/dL (6.3-8.2)
[2022-03-16 10:30] LABS: Protein C (Activity) 78 % (71-138)
--- NOTE | 2022-03-16 14:34 | P.PN ---
Subjective Progress Note Date: 03/16/22 Principal diagnosis: Acute pulmonary embolism History of overweight 3 months ago Hypertension hypertensive cardiovascular disease History of diastolic heart failure History of neuropathy 03/16/2022, patient seen and evaluated examined during the rounds labs reviewed medications reviewed care plan discussed, respiratory status slightly better breathing comfortably denies any chest pain some time have episodes of heavy breathing, otherwise doing well, patient remains on IV heparin tolerating very well Patient is a pleasant 46-year-old female with remote history of smoking and nicotine use with history of cold with infection in October 2021 patient was not hospitalized but has severe symptoms requiring antibiotics with Z-Roger as well as steroids 2 times, patient recovered from colon infection was vaccinated with the last shot in January so far she had 2 shots of cold with, patient starting having multiple nonspecific symptoms including swelling on the lower extremity paresthesia and numbness in the toes as well as the leg increasing shortness of breath chest tightness and pain, patient had an extensive workup including cardiology workup and was admitted into the hospital from February 16 to February 24 which includes spinal tap as well as MRI of the thoracic cervical and lumbar conclusive diagnosis was made and eventually was discharged now she started having some shortness of breath for last several days as well as pleuritic chest pain decided to come into the hospital for further evaluation also feeling congested with headache and dizziness. On arrival she was afebrile with normal heart rate and respiratory rate, blood pressure was mildly elevated oxygen saturation was mid to high 90s, labs were significant for normal CBC, BUN/creatinine normal platelet counts were normal, d-dimer was elevated 0.8 with a baseline of 0.6. The leukocyte esterase was positive in the urine, troponin was normal, overweight 19 as well as influenza A and B were negative, she underwent computed tomography scan of the chest came back positive for pulmonary embolism, bilateral in the lower lobes, patient started on heparin drip. Currently patient is on home medications including pain medicine and heparin drip as per protocol Objective - Vital Signs Vital signs: Vital Signs Temp 97.3 F L 03/16/22 08:00 Pulse 67 03/16/22 12:00 Resp 16 03/16/22 12:00 BP 118/64 03/16/22 12:00 Pulse Ox 98 03/16/22 12:00 Intake & Output 03/15/22 03/16/22 03/16/22 18:59 06:59 18:59 Intake Total 232.688 250 416.879 Balance 232.688 250 416.879 Intake: Intake, IV Titration 232.688 250 56.879 Amount Heparin Sod,Pork in 0.45% 232.688 250 56.879 NaCl 25,000 unit In 0.45 % NaCl 1 250ml.bag @ 18 UNITS/KG/HR 16.329 mls/hr IV .[id number] MISAEL Rx#: [id number] Oral 360 Other: # Voids 5 1 - Exam - Constitutional General appearance: average body habitus, cooperative, disheveled - EENT Eyes: EOMI, PERRLA ENT: normal oropharynx Ears: bilateral: normal - Neck Neck: normal ROM Carotids: bilateral: upstroke normal Thyroid: negative: normal size - Respiratory Respiratory: bilateral: CTA - Cardiovascular Rhythm: regular Heart sounds: normal: S1, S2 - Integumentary Integumentary: normal turgor - Neurologic Neurologic: CNII-XII intact - Musculoskeletal Musculoskeletal: gait normal, generalized weakness, strength equal bilaterally - Psychiatric Psychiatric: A&O x's 3, appropriate affect, intact judgment & insight - Labs CBC & Chem 7: 03/16/22 08:17 03/16/22 08:17 Labs: Abnormal Lab Results - Last 24 Hours (Table) 03/15/22 03/16/22 03/16/22 Range/Units 16:18 08:17 08:17 APTT 108.0 H* (22.0-30.0) sec Antithrombin III Activ 70 L (79-109) % Chloride 111 H (98-107) mmol/L Calcium 8.3 L (8.4-10.2) mg/dL Total Protein 5.8 L (6.3-8.2) g/dL Albumin 3.2 L (3.5-5.0) g/dL Assessment and Plan Assessment: Acute pulmonary embolism History of overweight 3 months ago Hypertension hypertensive cardiovascular disease History of diastolic heart failure History of neuropathy Plan: Continue IV heparin switched to direct oral anticoagulant tomorrow start with EIQUIS 10 mg 2 times a day for 7 days then 5 mg 2 times a day for a period of at least a year Duplex ultrasound of the lower extremity can be performed if not done Time with Patient: Greater than 30
--- NOTE | 2022-03-16 16:50 | US ---
EXAMINATION TYPE: US venous doppler duplex LE BI DATE OF EXAM: 03/16/2022 4:09 PM COMPARISON: NONE CLINICAL HISTORY: PE. PE's , no h/o dvt, no leg symptoms SIDE PERFORMED: Bilateral TECHNIQUE: The lower extremity deep venous system is examined utilizing real time linear array sonog felicia with graded compression, doppler sonography and color-flow sonography. VESSELS IMAGED: Common Femoral Vein Deep Femoral Vein Greater Saphenous Vein * Femoral Vein Popliteal Vein Small Saphenous Vein * Proximal Calf Veins (* superficial vessels) Right Leg: Negative for DVT Left Leg: Negative for DVT IMPRESSION: No evidence of DVT at this time.
--- NOTE | 2022-03-16 17:44 | PN ---
PROGRESS NOTE This 46-year-old white female was admitted with subsegmental PEs bilaterally. Protein workup and protein deficiency workup is in place. Ultrasound of legs has been ordered. Her right-sided hip pain is slightly better. Temperature 97.3, pulse 67, respiratory rate 16 to 18, blood pressure 118/64. Cardiovascular S1, S2. Lungs clear. GI soft. Musculoskeletal: Mild tenderness to palpation, right lateral ribs. Labs were reviewed. ASSESSMENT: 1. Acute pulmonary embolism. 2. Obesity. 3. Hypertensive cardiovascular disease. 4. History of diastolic heart failure. 5. Neuropathy. 6. Alcoholism. We are going to start oral anticoagulant Eliquis 10 mg b.i.d. tomorrow for 7 days, then go to 5 mg b.i.d. for at least a year. Ultrasound of the legs and workup are proceeding to see why she got the blood clot. MMODL / RITAN: [id number] /
[2022-03-16] MEDS: PRAZOSIN 1 MG CAP PO SCH (21:11)
[2022-03-16] MEDS: traZODone HCL 50 MG TAB PO SCH (21:12)
[2022-03-17] MEDS: METOPROLOL TARTRATE 12.5 MG TAB PO SCH ×3 (08:12→20:24)
[2022-03-17] MEDS: GABAPENTIN 300 MG CAP PO SCH ×3 (08:12→20:24)
[2022-03-17] MEDS: SERTRALINE 50 MG TAB PO SCH (08:12)
[2022-03-17] MEDS: DILTIAZEM CD 180 MG CAP.ER.24H PO SCH (08:12)
[2022-03-17] MEDS: FUROSEMIDE 20 MG TAB PO SCH (08:12)
[2022-03-17] MEDS: HYDROcodone/APAP 5-325MG 1 EACH TAB PO PRN ×3 (08:15→20:23)
[2022-03-17] MEDS: HEPARIN SOD,PORK IN 0.45% NACL 25,000 UNIT in 0.45% NACL 1 250ML.BAG IV SCH (11:59)
[2022-03-17] MEDS: APIXABAN 5 MG TAB PO SCH ×2 (12:16→20:24)
--- NOTE | 2022-03-17 14:08 | P.PN ---
Subjective Progress Note Date: 03/17/22 Principal diagnosis: Acute pulmonary embolism History of overweight 3 months ago Hypertension hypertensive cardiovascular disease History of diastolic heart failure History of neuropathy 03/17/2022, patient seen eval examined during the rounds labs reviewed medications reviewed care plan discussed, patient has been started on the oral direct anticoagulant loading dose off of IV heparin now tolerating very well denies any chest pain is still intermittent and shortness breath and some heaviness present not present all the time hemodynamically she is stable, duplex ultrasound the lower extremity negative for DVT 03/16/2022, patient seen and evaluated examined during the rounds labs reviewed medications reviewed care plan discussed, respiratory status slightly better b reathing comfortably denies any chest pain some time have episodes of heavy breathing, otherwise doing well, patient remains on IV heparin tolerating very well Patient is a pleasant 46-year-old female with remote history of smoking and nicotine use with history of cold with infection in October 2021 patient was not hospitalized but has severe symptoms requiring antibiotics with Z-Roger as well as steroids 2 times, patient recovered from colon infection was vaccinated with the last shot in January so far she had 2 shots of cold with, patient starting having multiple nonspecific symptoms including swelling on the lower extremity paresthesia and numbness in the toes as well as the leg increasing shortness of breath chest tightness and pain, patient had an extensive workup including cardiology workup and was admitted into the hospital from February 16 to February 24 which includes spinal tap as well as MRI of the thoracic cervical and lumbar conclusive diagnosis was made and eventually was discharged now she started having some shortness of breath for last several days as well as pleuritic chest pain decided to come into the hospital for further evaluation also feeling congested with headache and dizziness. On arrival she was afebrile with normal heart rate and respiratory rate, blood pressure was mildly elevated oxygen saturation was mid to high 90s, labs were significant for normal CBC, BUN/creatinine normal platelet counts were normal, d-dimer was elevated 0.8 with a baseline of 0.6. The leukocyte esterase was positive in the urine, troponin was normal, overweight 19 as well as influenza A and B were negative, she underwent computed tomography scan of the chest came back positive for pulmonary embolism, bilateral in the lower lobes, patient started on heparin drip. Currently patient is on home medications including pain medicine and heparin drip as per protocol Objective - Vital Signs Vital signs: Vital Signs Temp 97.8 F 05/05/22 08:05 Pulse 62 03/17/22 11:27 Resp 18 03/17/22 11:27 BP 125/94 03/17/22 11:27 Pulse Ox 97 03/17/22 11:27 Intake & Output 03/16/22 03/17/22 03/17/22 18:59 06:59 18:59 Intake Total 1136.879 156.719 Balance 1136.879 156.719 Intake: Intake, IV Titration 56.879 156.719 Amount Heparin Sod,Pork in 0.45% 56.879 156.719 NaCl 25,000 unit In 0.45 % NaCl 1 250ml.bag @ 18 UNITS/KG/HR 16.329 mls/hr IV .[id number] MISAEL Rx#: [id number] Oral 1080 Other: # Voids 3 2 - Exam - Constitutional General appearance: average body habitus, cooperative, disheveled - EENT Eyes: EOMI, PERRLA ENT: normal oropharynx Ears: bilateral: normal - Neck Neck: normal ROM Carotids: bilateral: upstroke normal Thyroid: negative: normal size - Respiratory Respiratory: bilateral: CTA - Cardiovascular Rhythm: regular Heart sounds: normal: S1, S2 - Integumentary Integumentary: normal turgor - Neurologic Neurologic: CNII-XII intact - Musculoskeletal Musculoskeletal: gait normal, generalized weakness, strength equal bilaterally - Psychiatric Psychiatric: A&O x's 3, appropriate affect, intact judgment & insight - Labs CBC & Chem 7: 03/16/22 08:17 03/16/22 08:17 Labs: Abnormal Lab Results - Last 24 Hours (Table) 03/16/22 03/17/22 Range/Units 18:17 11:12 APTT 44.9 H 45.2 H (22.0-30.0) sec Assessment and Plan Assessment: Acute pulmonary embolism History of overweight 3 months ago Hypertension hypertensive cardiovascular disease History of diastolic heart failure History of neuropathy Plan: Continue EIQUIS 10 mg 2 times a day for 7 days then 5 mg 2 times a day for a period of at least a year Duplex ultrasound of the lower extremity results reviewed Follow-up as outpatient Time with Patient: Greater than 30
--- NOTE | 2022-03-17 15:26 | PN ---
PROGRESS NOTE This white female came in with bilateral pulmonary embolism. She was started on, I think Eliquis today to prevent further DVT. She has antithrombin 3 deficiency. I discussed with her that she will probably have to stay on blood thinners forever. Dopplers of her legs are negative. Cardiovascular S1-S2. Lungs are mostly clear. GI soft. Hematology negative Homans. Psych fair mood affect. Temperature 97.8, pulse 62, respiratory rate 16 to 18, blood pressure 125/94, O2 97. She will be on Eliquis 10 mg b.i.d. for 7 days and 5 mg b.i.d. for a least a year, probably forever, due to antithrombin 3 deficiency and acute pulmonary embolism, overweight, hypertensive cardiovascular disease, diastolic heart failure, neuropathy. Possibly discharge home soon. MMODL / IJN: [id number] /
[2022-03-17] MEDS: PRAZOSIN 1 MG CAP PO SCH (20:25)
[2022-03-17] MEDS: traZODone HCL 50 MG TAB PO SCH (20:25)
[2022-03-18 04:31] VITALS: RESP 16
[2022-03-18 08:07] LABS: Basophils % (A) 0 %; Eosinophils # (A) 0.2 k/uL (0-0.7); Eosinophils % (A) 3 %; HCT 38.4 % (34.0-46.0); HGB 12.7 gm/dL (11.4-16.0); Lymphocytes # (A) 1.2 k/uL (1.0-4.8); Lymphocytes % (A) 23 %; MCH 31.5 pg (25.0-35.0); MCHC 33.2 g/dL (31.0-37.0); MCV 94.9 fL (80.0-100.0); Mean Platelet Volume 7.2; Monocytes # (A) 0.3 k/uL (0-1.0); Monocytes % (A) 5 %; Neutrophils # (A) 3.4 k/uL (1.3-7.7); Neutrophils % (A) 66 %; Platelet Count 236 k/uL (150-450); RBC 4.04 m/uL (3.80-5.40); RDW 13.7 % (11.5-15.5); WBC 5.2 k/uL (3.8-10.6)
[2022-03-18] MEDS: FUROSEMIDE 20 MG TAB PO SCH (08:27)
[2022-03-18] MEDS: METOPROLOL TARTRATE 12.5 MG TAB PO SCH (08:27)
[2022-03-18] MEDS: SERTRALINE 50 MG TAB PO SCH (08:27)
[2022-03-18] MEDS: HYDROcodone/APAP 5-325MG 1 EACH TAB PO PRN (08:27)
[2022-03-18] MEDS: APIXABAN 5 MG TAB PO SCH (08:27)
[2022-03-18] MEDS: GABAPENTIN 300 MG CAP PO SCH (08:27)
[2022-03-18] MEDS: DILTIAZEM CD 180 MG CAP.ER.24H PO SCH (08:27)
[2022-03-18 09:43] VITALS: BP 104/67; PULSE 78; TEMP 98
[2022-03-24] MEDS ORDERED: APIXABAN 5 MG TAB PO SCH (09:00)
== END 2022-03-18 13:33 | disposition home or self-care (01) | DRG 176 ==
LOC: EC 15:18 → 3SCARD 19:44
PROVIDERS: ADMIT Family Medicine; ATTEND Family Medicine
DX: I26.99 Other pulmonary embolism without acute cor pulmonale (principal); I50.32 Chronic diastolic (congestive) heart failure; D68.59 Other primary thrombophilia; J06.9 Acute upper respiratory infection, unspecified; F10.20 Alcohol dependence, uncomplicated; E66.9 Obesity, unspecified; Z68.31 Body mass index [BMI] 31.0-31.9, adult; G62.9 Polyneuropathy, unspecified; I11.0 Hypertensive heart disease with heart failure; M19.039 Primary osteoarthritis, unspecified wrist; M50.20 Other cervical disc displacement, unspecified cervical region; M50.30 Other cervical disc degeneration, unspecified cervical region; M51.26 Other intervertebral disc displacement, lumbar region; M51.34 Other intervertebral disc degeneration, thoracic region; R09.02 Hypoxemia; Z79.01 Long term (current) use of anticoagulants; Z79.899 Other long term (current) drug therapy; Z87.891 Personal history of nicotine dependence; G89.29 Other chronic pain; Z86.16 Personal history of COVID-19; Z98.890 Other specified postprocedural states; Z88.0 Allergy status to penicillin
CPT/HCPCS: 36415; 71275; 76705; 80053; 81001; 81025; 82150; 83690; 84484; 85025; 85300; 85303; 85306; 85379; 85730; 86038; 86225; 87502; 87635; 93970; 96361; 96374; 96375; 99285

== ENCOUNTER 2022-04-04 11:03 | Observation (INO) | payer OTHER ==
[2022-04-04] MEDS ORDERED: PANTOPRAZOLE 40 MG/10 ML VIAL IVP STA (11:38)
--- NOTE | 2022-04-04 12:00 | ED ---
General Adult HPI - General Chief complaint: GI Bleed Stated complaint: blood clot on face/sob/blood in stool Time Seen by Provider: 04/04/22 11:38 Source: patient, RN notes reviewed Mode of arrival: wheelchair Limitations: no limitations - History of Present Illness Initial comments: Patient is a pleasant 46-year-old female presenting to the emergency department with concerns of black stools. Patient has been started on eliquis under 2 weeks ago. Patient has been having black stools for the past 5 or more days. Patient has mild abdominal discomfort. Patient does have history of alcohol use, quit 7 months ago. No vomiting. Patient has noticed a little area of bruising on her left eye. Patient has been a little bit fatigued and short of breath. - Related Data Home Medications Medication Instructions Recorded Confirmed Furosemide [Lasix] 20 mg PO DAILY 02/16/22 03/14/22 Metoprolol Tartrate [Lopressor] 12.5 mg PO TID 02/16/22 03/14/22 Pantoprazole [Protonix] 40 mg PO BID PRN 02/16/22 03/14/22 Prazosin HCl 2 mg PO HS 02/16/22 03/14/22 Gabapentin [Neurontin] 300 mg PO TID 03/14/22 03/14/22 traMADol HCL 50 mg PO TID PRN 03/14/22 03/14/22 Previous Rx's Medication Instructions Recorded Diltiazem Cd [Cardizem CD] 180 mg PO DAILY 30 Days 09/03/21 Sertraline [Zoloft] 150 mg PO DAILY 30 Days tab 09/03/21 traZODone HCL [Desyrel] 150 mg PO HS 30 Days tab 09/03/21 Apixaban [Eliquis Starter Pack 5 - 10 mg PO DIRECTED 30 Days 03/18/22 (for VTE)] #1 each Allergies Allergy/AdvReac Type Severity Reaction Status Date / Time Penicillins Allergy Unknown Verified 04/04/22 11:17 Childhood Review of Systems ROS Statement: Those systems with pertinent positive or pertinent negative responses have been documented in the HPI. ROS Other: All systems not noted in ROS Statement are negative. Constitutional: Denies: fever Eyes: Denies: eye pain ENT: Denies: ear pain Respiratory: Denies: cough Cardiovascular: Reports: as per HPI. Denies: chest pain Endocrine: Reports: fatigue Gastrointestinal: Reports: as per HPI, melena Genitourinary: Denies: dysuria Musculoskeletal: Denies: back pain Skin: Reports: as per HPI Past Medical History Past Medical History: Hypertension, Pulmonary Embolus (PE) Additional Past Medical History / Comment(s): Pt states she has an arrythmia, pancreatitis and chronic back pain. Herniated Disk. History of Any Multi-Drug Resistant Organisms: CRE, Other MDRO Date of last positivie culture/infection: 07/16/21 MDRO Source:: URINE Past Surgical History: Appendectomy, Orthopedic Surgery Additional Past Surgical History / Comment(s): titanium wrist, Exploratory surgery. Past Anesthesia/Blood Transfusion Reactions: No Reported Reaction Past Psychological History: Anxiety, Depression Smoking Status: Former smoker Past Alcohol Use History: None Reported Past Drug Use History: None Reported - Past Family History Father History Unknown: Yes Family Medical History: Osteoarthritis (OA) General Exam Limitations: no limitations General appearance: alert, in no apparent distress Head exam: Present: atraumatic Eye exam: Present: normal appearance, PERRL Neck exam: Present: normal inspection Respiratory exam: Present: normal lung sounds bilaterally Cardiovascular Exam: Present: regular rate, normal rhythm GI/Abdominal exam: Present: soft. Absent: distended, tenderness, guarding, rebound, rigid Rectal exam: Present: normal inspection (RN Arely is present) Extremities exam: Present: normal inspection. Absent: pedal edema, calf tenderness Neurological exam: Present: alert Psychiatric exam: Present: normal affect, normal mood Skin exam: Present: other (Minimal area of ecchymosis approximately 4 x 8 mm underneath left eye.) Course Vital Signs 04/04/22 04/04/22 11:13 12:19 Temperature 98.2 F Pulse Rate 60 Respiratory 18 20 Rate Blood Pressure 139/80 O2 Sat by Pulse 98 Oximetry Medical Decision Making - Medical Decision Making Patient reevaluated and updated. Case discussed with Dr. Carlson, who will admit his patient. Consult will be placed with GI and pulmonary - Lab Data Result diagrams: 04/04/22 11:56 04/04/22 11:56 Lab Results 04/04/22 04/04/22 04/04/22 Range/Units 11:56 11:56 11:56 WBC 7.1 (3.8-10.6) k/uL RBC 4.41 (3.80-5.40) m/uL Hgb 13.8 (11.4-16.0) gm/dL Hct 41.1 (34.0-46.0) % MCV 93.2 (80.0-100.0) fL MCH 31.3 (25.0-35.0) pg MCHC 33.6 (31.0-37.0) g/dL RDW 13.6 (11.5-15.5) % Plt Count 274 (150-450) k/uL MPV 7.0 Neutrophils % 71 % Lymphocytes % 22 % Monocytes % 3 % Eosinophils % 2 % Basophils % 1 % Neutrophils # 5.0 (1.3-7.7) k/uL Lymphocytes # 1.5 (1.0-4.8) k/uL Monocytes # 0.2 (0-1.0) k/uL Eosinophils # 0.1 (0-0.7) k/uL Basophils # 0.1 (0-0.2) k/uL PT 10.7 (9.0-12.0) sec INR 1.0 (<1.2) APTT 27.3 (22.0-30.0) sec Sodium 139 (137-145) mmol/L Potassium 4.1 (3.5-5.1) mmol/L Chloride 107 (98-107) mmol/L Carbon Dioxide 20 L (22-30) mmol/L Anion Gap 12 mmol/L BUN 11 (7-17) mg/dL Creatinine 0.71 (0.52-1.04) mg/dL Est GFR (CKD-EPI)AfAm >90 (>60 ml/min/1.73 sqM) Est GFR (CKD-EPI)NonAf >90 (>60 ml/min/1.73 sqM) Glucose 98 (74-99) mg/dL Calcium 9.6 (8.4-10.2) mg/dL Magnesium 1.9 (1.6-2.3) mg/dL Total Bilirubin 0.5 (0.2-1.3) mg/dL AST 24 (14-36) U/L ALT 24 (4-34) U/L Alkaline Phosphatase 72 (38-126) U/L Troponin I (0.000-0.034) ng/mL Total Protein 7.6 (6.3-8.2) g/dL Albumin 4.7 (3.5-5.0) g/dL Stool Occult Blood (Negative) 04/04/22 04/04/22 Range/Units 11:56 13:06 WBC (3.8-10.6) k/uL RBC (3.80-5.40) m/uL Hgb (11.4-16.0) gm/dL Hct (34.0-46.0) % MCV (80.0-100.0) fL MCH (25.0-35.0) pg MCHC (31.0-37.0) g/dL RDW (11.5-15.5) % Plt Count (150-450) k/uL MPV Neutrophils % % Lymphocytes % % Monocytes % % Eosinophils % % Basophils % % Neutrophils # (1.3-7.7) k/uL Lymphocytes # (1.0-4.8) k/uL Monocytes # (0-1.0) k/uL Eosinophils # (0-0.7) k/uL Basophils # (0-0.2) k/uL PT (9.0-12.0) sec INR (<1.2) APTT (22.0-30.0) sec Sodium (137-145) mmol/L Potassium (3.5-5.1) mmol/L Chloride (98-107) mmol/L Carbon Dioxide (22-30) mmol/L Anion Gap mmol/L BUN (7-17) mg/dL Creatinine (0.52-1.04) mg/dL Est GFR (CKD-EPI)AfAm (>60 ml/min/1.73 sqM) Est GFR (CKD-EPI)NonAf (>60 ml/min/1.73 sqM) Glucose (74-99) mg/dL Calcium (8.4-10.2) mg/dL Magnesium (1.6-2.3) mg/dL Total Bilirubin (0.2-1.3) mg/dL AST (14-36) U/L ALT (4-34) U/L Alkaline Phosphatase (38-126) U/L Troponin I <0.012 (0.000-0.034) ng/mL Total Protein (6.3-8.2) g/dL Albumin (3.5-5.0) g/dL Stool Occult Blood Negative (Negative) - Radiology Data Radiology results: image reviewed (Chest x-ray shows no acute process) Disposition Clinical Impression: Melena, Dyspnea Disposition: ADMITTED IP TO THIS HOSP Is patient prescribed a controlled substance at d/c from ED?: No Referrals: Josef Carlson MD [Primary Care Provider] - 1-2 days Time of Disposition: 13:31
[2022-04-04 12:06] LABS: Basophils # (A) 0.1 k/uL (0-0.2); Basophils % (A) 1 %; Eosinophils # (A) 0.1 k/uL (0-0.7); Eosinophils % (A) 2 %; HCT 41.1 % (34.0-46.0); HGB 13.8 gm/dL (11.4-16.0); Lymphocytes # (A) 1.5 k/uL (1.0-4.8); Lymphocytes % (A) 22 %; MCH 31.3 pg (25.0-35.0); MCHC 33.6 g/dL (31.0-37.0); MCV 93.2 fL (80.0-100.0); Monocytes # (A) 0.2 k/uL (0-1.0); Monocytes % (A) 3 %; Neutrophils % (A) 71 %; Platelet Count 274 k/uL (150-450); RBC 4.41 m/uL (3.80-5.40); RDW 13.6 % (11.5-15.5); WBC 7.1 k/uL (3.8-10.6)
[2022-04-04 12:22] LABS: ALT 24 U/L (4-34); AST 24 U/L (14-36); African American GFR (CKD) >90 (>60 ml/min/1.73 sqM); Albumin 4.7 g/dL (3.5-5.0); Alkaline Phosphatase 72 U/L (38-126); Anion Gap 12 mmol/L; Blood Urea Nitrogen 11 mg/dL (7-17); Calcium 9.6 mg/dL (8.4-10.2); Carbon Dioxide 20 mmol/L (22-30); Chloride 107 mmol/L (98-107); Glucose 98 mg/dL (74-99); Magnesium 1.9 mg/dL (1.6-2.3); Non-African American GFR(CKD) >90 (>60 ml/min/1.73 sqM); Potassium 4.1 mmol/L (3.5-5.1); Sodium 139 mmol/L (137-145); Total Bilirubin 0.5 mg/dL (0.2-1.3); Total Protein 7.6 g/dL (6.3-8.2)
[2022-04-04 12:26] LABS: Partial Thromboplastin Time 27.3 sec (22.0-30.0); Prothrombin Time 10.7 sec (9.0-12.0)
--- NOTE | 2022-04-04 12:53 | XR ---
EXAMINATION TYPE: XR chest 2V DATE OF EXAM: 04/04/2022 COMPARISON: X-ray dated 07/17/2021 HISTORY: Pain TECHNIQUE: Frontal and lateral views of the chest are obtained. FINDINGS: Grossly unremarkable lungs. No pleural effusion or pneumothorax. No gross cardiomegaly. Degenerative changes of the mid to lower thoracic spine. IMPRESSION: No definite acute pulmonary abnormality identified.
[2022-04-04] MEDS ORDERED: NALOXONE 0.4 MG/ML 1 ML VIAL IV PRN (13:31)
[2022-04-04] MEDS: SODIUM CHLORIDE 0.9% 1,000 ML IV SCH (14:00)
[2022-04-04 14:25] LABS: Appearance,Urine Clear (Clear); Bilirubin,Urine Negative (Negative); Blood,Urine Negative (Negative); Color,Urine Colorless; Glucose,Urine (UA) Negative (Negative); Ketones,Urine Negative (Negative); Leukocyte Esterase,Urine Negative (Negative); Nitrite,Urine Negative (Negative); PH, Urine 5.5 (5.0-8.0); Protein,Urine Negative (Negative); Specific Gravity,Urine 1.003 (1.001-1.035); Urobilinogen,Urine <2.0 mg/dL (<2.0)
[2022-04-04] MEDS ORDERED: PANTOPRAZOLE 40 MG TABLET PO PRN (16:50)
[2022-04-04] MEDS ORDERED: DILTIAZEM CD 180 MG CAP.ER.24H PO STA (18:20)
[2022-04-04] MEDS ORDERED: FERROUS SULFATE 325 MG TAB PO STA (18:20)
[2022-04-04] MEDS ORDERED: SERTRALINE 50 MG TAB PO STA (18:24)
[2022-04-04] MEDS ORDERED: FUROSEMIDE 20 MG TAB PO STA (18:24)
[2022-04-04] MEDS: HYDROcodone/APAP 7.5-325MG 1 EACH TAB PO PRN (18:40)
[2022-04-04] MEDS: GABAPENTIN 300 MG CAP PO SCH (20:05)
[2022-04-04] MEDS: METOPROLOL TARTRATE 12.5 MG TAB PO SCH (20:05)
[2022-04-04] MEDS ORDERED: traZODone HCL 50 MG TAB PO SCH (21:00)
[2022-04-05] MEDS: SODIUM CHLORIDE 0.9% 1,000 ML IV SCH ×2 (02:54→16:12)
[2022-04-05] MEDS: HYDROcodone/APAP 7.5-325MG 1 EACH TAB PO PRN ×2 (05:49→13:26)
[2022-04-05] MEDS ORDERED: LEVOTHYROXINE 75 MCG TAB PO SCH (06:30)
[2022-04-05] MEDS: METOPROLOL TARTRATE 12.5 MG TAB PO SCH ×2 (08:38→16:11)
[2022-04-05] MEDS: GABAPENTIN 300 MG CAP PO SCH ×2 (08:38→16:11)
[2022-04-05] MEDS ORDERED: FUROSEMIDE 20 MG TAB PO SCH (09:00)
[2022-04-05] MEDS ORDERED: SERTRALINE 50 MG TAB PO SCH (09:00)
[2022-04-05] MEDS ORDERED: PANTOPRAZOLE 40 MG/10 ML VIAL IV SCH (09:00)
[2022-04-05] MEDS ORDERED: DILTIAZEM CD 180 MG CAP.ER.24H PO SCH (09:00)
[2022-04-05] MEDS ORDERED: FERROUS SULFATE 325 MG TAB PO SCH (09:00)
[2022-04-05 09:18] LABS: Basophils # (A) 0.03 X 10*3/uL (0.00-0.10); Basophils % (A) 0.5 %; Eosinophils % (A) 1.7 %; HCT 36.5 % (37.2-46.3); HGB 12.3 g/dL (12.0-15.0); Immature Grans, Automated 0.2 %; Lymphocytes % (A) 25.6 %; MCH 31.4 pg (27.0-32.0); MCHC 33.7 g/dL (32.0-37.0); MCV 93.1 fL (80.0-97.0); Mean Platelet Volume 9.8 fL (9.5-12.2); Monocytes # (A) 0.43 X 10*3/uL (0.20-1.00); Monocytes % (A) 7.4 %; NRBC Per 100 WBC 0 /100 WBCS (0.0-0.0); Neutrophils # (A) 3.78 X 10*3/uL (1.80-7.70); Neutrophils % (A) 64.6 %; Platelet Count 233 X 10*3/uL (140-440); RBC 3.92 X 10*6/uL (4.10-5.20); RDW 13.7 % (11.5-14.5); WBC 5.85 X 10*3/uL (4.50-10.00)
[2022-04-05 09:40] LABS: African American GFR (CKD) 113.6 (60.0-200.0); Albumin 3.9 g/dL (3.8-4.9); Albumin/Globulin Ratio 2.01 (1.60-3.17); BUN/Creat Ratio 15.34 Ratio (12.00-20.00); Blood Urea Nitrogen 11.4 mg/dL (9.0-27.0); Calcium 8.8 mg/dL (8.7-10.3); Carbon Dioxide 20.7 mmol/L (20.0-27.5); Non-African American GFR(CKD) 98.1 (60.0-200.0); Potassium 4.1 mmol/L (3.5-5.5); Total Bilirubin 0.3 mg/dL (0.30-1.20); Total Protein 5.9 g/dL (6.2-8.2)
--- NOTE | 2022-04-05 12:23 | P.CONS ---
History of Present Illness - Reason for Consult Consult date: 04/05/22 Melena Requesting physician: Josef Carlson - Chief Complaint Shortness of breath - History of Present Illness This a 46-year-old female with a past medical history of alcohol abuse and intoxication and recent pulmonary embolism who presented to the emergency department with complaints of shortness of breath and dyspnea on exertion. She is currently on Eliquis, last dose 04/03/2022. She also have his stated that she felt that she had dark stools and was concerned since she was recently started on anticoagulation. However patient states she also remembers that she was started on oral iron and believes the dark stools are from the iron. She denies any abdominal pain, nausea, or vomiting. Patient had colonoscopy [id number] Connors for anemia status post polypectomy. Hemoglobin stable on admission at 13.8. Labs: WBC 7.1 hemoglobin 13.8 hematocrit 41 platelet count 274,000 INR 1.0 Sodium 139 potassium 4.1 BUN 11 creatinine 0.71 glucose 98 bilirubin 0.5 AST 24 ALT 24 alkaline phosphatase takes 72 Stool occult blood negative Review of Systems REVIEW OF SYSTEMS: CARDIOPULMONARY: No chest pain. Shortness of breath at rest and with exertion. Gastrointestinal: No abdominal pain. No nausea or vomiting. No hematemesis, coffee-ground emesis. Reported black stool, but remembers that she was just recently started on oral iron GENITOURINARY: No dysuria or hematuria. MUSCULOSKELETAL: Reports normal range of motion. SKIN: No rashes. No jaundice. ENDOCRINE: No chills, fevers. No excessive weight gain or loss. No polydipsia or polyuria. PSYCHIATRIC: Unremarkable. NEUROLOGY: No change in mental status. Denies dizziness, headache. ENT: Vision unremarkable. CONSTITUTIONAL: No recent weight loss. No fever, chills, night sweats. Past Medical History Past Medical History: Hypertension, Pulmonary Embolus (PE) Additional Past Medical History / Comment(s): Pt states she has an arrythmia, pancreatitis and chronic back pain. Herniated Disk. History of Any Multi-Drug Resistant Organisms: CRE, Other MDRO Year Discovered:: 07/16/21 MDRO Source:: URINE Past Surgical History: Appendectomy, Orthopedic Surgery Additional Past Surgical History / Comment(s): titanium wrist, Exploratory surgery. Past Anesthesia/Blood Transfusion Reactions: No Reported Reaction Past Psychological History: Anxiety, Depression Smoking Status: Former smoker Past Alcohol Use History: None Reported Additional Past Alcohol Use History / Comment(s): Pt states she quit smoking almost 6 months ago Past Drug Use History: None Reported Additional Drug Use History / Comment(s): Pt states she has quit drinking for 6 months now - Past Family History Father History Unknown: Yes Family Medical History: Osteoarthritis (OA) Medications and Allergies Home Medications Medication Instructions Recorded Confirmed Type Diltiazem Cd [Cardizem CD] 180 mg PO DAILY 30 Days 09/03/21 04/04/22 Rx Sertraline [Zoloft] 150 mg PO DAILY 30 Days tab 09/03/21 04/04/22 Rx traZODone HCL [Desyrel] 150 mg PO HS 30 Days tab 09/03/21 04/04/22 Rx Furosemide [Lasix] 20 mg PO DAILY 02/16/22 04/04/22 History Metoprolol Tartrate [Lopressor] 12.5 mg PO TID 02/16/22 04/04/22 History Pantoprazole [Protonix] 40 mg PO BID PRN 02/16/22 04/04/22 History Prazosin HCl 2 mg PO HS 02/16/22 04/04/22 History Gabapentin [Neurontin] 300 mg PO TID 03/14/22 04/04/22 History Apixaban [Eliquis Starter Pack See Taper PO DIRECTED 04/04/22 04/04/22 History (for VTE)] Ferrous Sulfate [Feosol] 325 mg PO DAILY 04/04/22 04/04/22 History HYDROcodone/APAP 7.5-325MG [[place] 1 tab PO Q8H PRN 04/04/22 04/04/22 History 7.5-325] Levothyroxine Sodium [Synthroid] 75 mcg PO DAILY 04/04/22 04/04/22 History Allergies Allergy/AdvReac Type Severity Reaction Status Date / Time Penicillins Allergy Unknown Verified 04/04/22 14:50 Childhood Physical Exam Vitals: Vital Signs Temp Pulse Pulse Pulse Resp BP BP 04/05/22 06:45 98.4 F 54 L 13 123/72 04/05/22 01:48 98.5 F 59 L 16 96/64 04/04/22 19:36 99.1 F 57 L 20 122/79 04/04/22 15:32 98.3 F 64 20 129/78 04/04/22 15:00 98.6 F 63 18 144/93 04/04/22 13:30 68 20 136/77 04/04/22 12:19 20 04/04/22 11:13 98.2 F 60 18 139/80 Pulse Ox 04/05/22 06:45 96 04/05/22 01:48 98 04/04/22 19:36 99 04/04/22 15:32 99 04/04/22 15:00 99 04/04/22 13:30 97 04/04/22 12:19 04/04/22 11:13 98 Intake and Output 04/04/22 04/05/22 04/05/22 22:59 06:59 14:59 Other: # Voids 1 1 Weight 95.254 kg General appearance: The patient is alert, oriented, appears in no acute distress. HET: Head is normocephalic and atraumatic. Conjunctiva pink. Sclera anicteric. Neck: Supple without lymphadenopathy. Trachea midline. Heart: S1 S2. Regular rate and rhythm. Lungs: Clear to auscultation. Abdomen: Soft, nontender, nondistended with bowel sounds. No guarding or rigidity. Skin: No rashes. No jaundice. Extremities: Normal skin color and turgor. No pedal edema. Neurological: No focal deficits. Alert and oriented x3. Results CBC & Chem 7: 04/05/22 06:30 04/05/22 06:30 Labs: Abnormal Lab Results - Last 24 Hours (Table) 04/04/22 Range/Units 11:56 Carbon Dioxide 20 L (22-30) mmol/L Chest x-ray: report reviewed (No definite acute pulmonary abnormality identified.) Assessment and Plan (1) Melena Narrative/Plan: 36-year-old female who presented to the emergency department with complaints of shortness of breath dyspnea on exertion who was recently diagnosed with bilateral pulmonary emboli on 03/15/2022 and was started on Eliquis reporting possible melena. She does have a history of alcohol abuse and alcohol into xication. Underwent colonoscopy in July 2021 significant for colon polyp status post polypectomy. Hemoglobin stable at 13.9, stool for occult blood negative. No plans at this time for endoscopic evaluation, Was likely related to oral iron. May resume Eliquis. Current Visit: Yes Status: Acute Code(s): K92.1 - MELENA SNOMED Code(s): 0200712 (2) Dyspnea Current Visit: Yes Status: Acute Code(s): R06.00 - DYSPNEA, UNSPECIFIED SNOMED Code(s): 793821349 (3) Alcohol abuse Current Visit: No Status: Acute Code(s): F10.10 - ALCOHOL ABUSE, UNCOMPLICATED SNOMED Code(s): 33935477 (4) Bilateral pulmonary embolism Current Visit: No Status: Acute Code(s): I26.99 - OTHER PULMONARY EMBOLISM WITHOUT ACUTE COR PULMONALE SNOMED Code(s): 96043712 Plan: 1. Continue symptomatic and supportive care 2. Repeat CBC this morning 3. Patient may have regular diet 4. May resume Eliquis 5. No plans on endoscopic evaluation Thank you for this consultation, the patient is cleared by gastroenterology for discharge once otherwise medically stable. Thank you for allowing us to participate in the care of the patient, the GI service will sign off, gastroenterology will not be available at the hospital this weekend and through next week. If further evaluation by gastroenterology is required the patient will need transfer as per the primary team's discretion. Dr. Lisset Connors I agree with the dictator's note, documented as a scribe by Cami Arvizu.
[2022-04-05 15:05] VITALS: BP 130/86; PULSE 60; RESP 17; TEMP 98.6
--- NOTE | 2022-04-05 18:02 | P.CNPUL ---
History of Present Illness Consult date: 04/05/22 Reason for consult: dyspnea, chest pain Chief complaint: Shortness of breath and dark stool History of present illness: Patient is a well-known 46-year-old morbidly obese female who came into the hospital with dark stool has been on the direct oral anticoagulant started about 2 weeks ago due to acute pulmonary embolism patient has some exertional dyspnea and shortness of breath however felt that shortness of breath was not getting worse she has some aches and pain throughout the body and numbness in the extremities which is been attributed to herniated disc, she denies any pleuritic chest pain denies any worsening or shortness of breath than baseline due to presence of dark stool she thought that she may be bleeding came into the hospital for further evaluation. Her chest x-ray unremarkable she has been comp liant about her oral anticoagulant. Hemoglobin stable white cell count is 7100, hemoglobin and hematocrit is 13/41, chemistry normal stool for occult blood negative. Patient has been evaluated by GI the recommend continue observation not endoscopy as hemoglobin has been negative occult blood has been negative, from respiratory standpoint patient has been tolerating direct oral anticoagulant fairly well recommended to continue 5 mg twice a day and follow-up in the office patient has been consult about smoking cessation Review of Systems All systems: negative Past Medical History Past Medical History: Hypertension, Pulmonary Embolus (PE) Additional Past Medical History / Comment(s): Pt states she has an arrythmia, pancreatitis and chronic back pain. Herniated Disk. History of Any Multi-Drug Resistant Organisms: CRE, Other MDRO Date of last positivie culture/infection: 07/16/21 MDRO Source:: URINE Past Surgical History: Appendectomy, Orthopedic Surgery Additional Past Surgical History / Comment(s): titanium wrist, Exploratory surgery. Past Anesthesia/Blood Transfusion Reactions: No Reported Reaction Past Psychological History: Anxiety, Depression Smoking Status: Former smoker Past Alcohol Use History: None Reported Additional Past Alcohol Use History / Comment(s): Pt states she quit smoking almost 6 months ago Past Drug Use History: None Reported Additional Drug Use History / Comment(s): Pt states she has quit drinking for 6 months now - Past Family History Father History Unknown: Yes Family Medical History: Osteoarthritis (OA) Medications and Allergies Home Medications Medication Instructions Recorded Confirmed Type Diltiazem Cd [Cardizem CD] 180 mg PO DAILY 30 Days 09/03/21 04/04/22 Rx Sertraline [Zoloft] 150 mg PO DAILY 30 Days tab 09/03/21 04/04/22 Rx traZODone HCL [Desyrel] 150 mg PO HS 30 Days tab 09/03/21 04/04/22 Rx Furosemide [Lasix] 20 mg PO DAILY 02/16/22 04/04/22 History Metoprolol Tartrate [Lopressor] 12.5 mg PO TID 02/16/22 04/04/22 History Pantoprazole [Protonix] 40 mg PO BID PRN 02/16/22 04/04/22 History Prazosin HCl 2 mg PO HS 02/16/22 04/04/22 History Gabapentin [Neurontin] 300 mg PO TID 03/14/22 04/04/22 History Apixaban [Eliquis Starter Pack See Taper PO DIRECTED 04/04/22 04/04/22 Hist ory (for VTE)] Ferrous Sulfate [Iron (65 MG 325 mg PO DAILY 04/04/22 04/04/22 History Elemental)] HYDROcodone/APAP 7.5-325MG [[place] 1 tab PO Q8H PRN 04/04/22 04/04/22 History 7.5-325] Levothyroxine Sodium [Synthroid] 75 mcg PO DAILY 04/04/22 04/04/22 History Allergies Allergy/AdvReac Type Severity Reaction Status Date / Time Penicillins Allergy Unknown Verified 04/04/22 14:50 Childhood Physical Exam Vitals: Vital Signs Temp Pulse Pulse Resp BP Pulse Ox 04/05/22 14:40 98.6 F 60 17 130/86 100 04/05/22 06:45 98.4 F 54 L 13 123/72 96 04/05/22 01:48 98.5 F 59 L 16 96/64 98 04/04/22 19:36 99.1 F 57 L 20 122/79 99 Intake and Output 04/05/22 04/05/22 04/05/22 06:59 14:59 22:59 Intake Total 681 Balance 681 Intake: Oral 681 Other: # Voids 1 1 - Constitutional General appearance: disheveled, morbidly obese - EENT Eyes: EOMI, PERRLA ENT: normal oropharynx Ears: bilateral: normal - Neck Carotids: bilateral: upstroke normal Thyroid: bilateral: normal size - Respiratory Respiratory: bilateral: CTA - Cardiovascular Rhythm: regular Heart sounds: normal: S1, S2 - Gastrointestinal General gastrointestinal: normal bowel sounds, soft - Integumentary Integumentary: normal turgor - Neurologic Neurologic: CNII-XII intact - Musculoskeletal Musculoskeletal: gait normal, generalized weakness, strength equal bilaterally - Psychiatric Psychiatric: A&O x's 3, appropriate affect, intact judgment & insight Results - Laboratory Findings CBC and BMP: 04/05/22 06:30 04/05/22 06:30 PT/INR, D-dimer PT 10.7 sec (9.0-12.0) 04/04/22 11:56 INR 1.0 (<1.2) 04/04/22 11:56 Abnormal lab findings: Abnormal Labs 04/04/22 04/05/22 04/05/22 11:56 06:30 06:30 RBC 3.92 L Hct 36.5 L Carbon Dioxide 20 L Total Protein 5.9 L - Diagnostic Findings Chest x-ray: report reviewed, image reviewed Assessment and Plan Assessment: Pulmonary embolism COPD not exacerbation Hypertension hypertensive cardiovascular disease Mood disorder depression Generalized anxiety disorder Plan: Continue direct oral anticoagulant Smoking cessation counseling advised Further workup and evaluation outpatient basis Patient can be discharged from pulmonary standpoint follow-up as outpatient
--- NOTE | 2022-04-05 18:06 | HP ---
HISTORY AND PHYSICAL This 46-year-old white female came into the hospital with shortness of breath and chest pain. She has a history of pulmonary embolism like a week or two ago. She has come in with increasing shortness of breath and abdominal pain with diarrhea over the last 4 days. She is currently on Eliquis. She is on IV iron. She has had dark stools. She possibly had a GI bleed. She was admitted. Hemoglobin was stable at 13.8 on admission. She was admitted to rule out any GI bleeding. GI saw her as well as Hematology. Fourteen-point review of systems otherwise negative. Past medical history: Pulmonary embolism, hypertension, degenerative disc disease, ex- alcoholic. No smoke. No alcohol. Medications: See list. She has a history of hypertension, hypothyroidism, neuropathy. PHYSICAL EXAMINATION: Temperature 98, respiratory rate 18-20, pulse 50s to 60s, blood pressure 120s to 130s over 70s to 80s. CARDIOVASCULAR: S1, S2. LUNGS: Clear. GI soft. Hematology negative Homans. Endocrine: BMI is over 40. Psych fair mood and affect. Neurologic: Cranial nerves intact. Hemoglobin is 12.3, white count 5.85. BUN is 11.4, creatinine 0.7, CO2 is 20. ASSESSMENT: 1. Melena. 2. Shortness of breath. 3. History of pulmonary embolism. She is on Eliquis. Possible melena. 4. No alcohol as of 6 months ago. Hemoglobin is stable at 13 9. Will rule out GI bleed. Get GI and Hematology to see her before going home. MMODL / IJN: [id number] /
== END 2022-04-05 19:00 | disposition home or self-care (01) ==
LOC: EC 11:03 → 6NMEDSUR 13:35
PROVIDERS: ADMIT Family Medicine; ATTEND Family Medicine
DX: I26.99 Other pulmonary embolism without acute cor pulmonale (principal); I11.9 Hypertensive heart disease without heart failure; R19.7 Diarrhea, unspecified; K92.1 Melena; E03.9 Hypothyroidism, unspecified; G62.9 Polyneuropathy, unspecified; F41.1 Generalized anxiety disorder; J44.9 Chronic obstructive pulmonary disease, unspecified; F10.10 Alcohol abuse, uncomplicated; E66.01 Morbid (severe) obesity due to excess calories; Z68.32 Body mass index [BMI] 32.0-32.9, adult; G89.29 Other chronic pain; M54.9 Dorsalgia, unspecified; I49.9 Cardiac arrhythmia, unspecified; F32.A Depression, unspecified; Z86.010 Personal history of colon polyps; Z87.891 Personal history of nicotine dependence; Z79.01 Long term (current) use of anticoagulants; Z79.890 Hormone replacement therapy; Z79.899 Other long term (current) drug therapy; Z71.9 Counseling, unspecified; Z71.6 Tobacco abuse counseling; Z90.49 Acquired absence of other specified parts of digestive tract; Z88.0 Allergy status to penicillin; Z82.61 Family history of arthritis
CPT/HCPCS: 96376; 96361 ×2; 96374; 99285; 36415; 80053 ×2; 83735; 84484; 85025 ×2; 85610; 85730; 82272; 81003; 87045; 87046; 71046; G0378 ×2; C9113 ×2

== ENCOUNTER 2022-07-16 22:16 | Emergency (ER) | payer OTHER ==
[2022-07-16 22:35] VITALS: TEMP 98.4
[2022-07-16] MEDS ORDERED: ASPIRIN 81 MG PO STA (22:50)
[2022-07-16] MEDS ORDERED: IPRATROPIUM-ALBUTEROL 3 ML NEB INHALATION STA (22:52)
[2022-07-16] MEDS ORDERED: methylPREDNISolone SOD SUCCI 125 MG/2 ML VIAL IV STA (22:52)
[2022-07-16] MEDS ORDERED: METOPROLOL TARTRATE 25 MG TAB PO STA (22:59)
--- NOTE | 2022-07-16 23:03 | ED ---
General Adult HPI - General Chief complaint: Arrhythmia/Palpitations Stated complaint: Chest pain,Sore throat Time Seen by Provider: 07/16/22 22:37 Source: patient, RN notes reviewed, old records reviewed Mode of arrival: ambulatory - History of Present Illness Initial comments: Patient is a 46-year-old female with past medical history remarkable for PE noncompliant with Eliquis for the last few months, chronic tachycardia, hypertension, pancreatitis, chronic back pain with a herniated disc who presents to the emergency department with multiple complaints. Primary complaint is upper respiratory symptoms including a productive cough of whitish mucus for the last 1-2 days. She states this is gone worse and has been having acute on chronic left upper chest pain. She states she has this on a daily basis for years, however seems to be worse with the cough. Also endorses mild shortness of breath due to the cough. Denies nausea, vomiting, abdominal pain, diarrhea. Denies any headache. Endorses intermittent shooting pain down both legs which have a history of likely secondary to her herniated disc. Denies any difficulty with urinating. Has no other acute complaint at this time. Was vaccinated for COVID-19. Could've been exposed to Covid. Patient does smoke. No history of COPD. Did not take evening dose of metoprolol. - Related Data Home Medications Medication Instructions Recorded Confirmed Furosemide [Lasix] 20 mg PO DAILY 02/16/22 04/04/22 Metoprolol Tartrate [Lopressor] 12.5 mg PO TID 02/16/22 04/04/22 Pantoprazole [Protonix] 40 mg PO BID PRN 02/16/22 04/04/22 Prazosin HCl 2 mg PO HS 02/16/22 04/04/22 Gabapentin [Neurontin] 300 mg PO TID 03/14/22 04/04/22 Apixaban [Eliquis Starter Pack See Taper PO DIRECTED 04/04/22 04/04/22 (for VTE)] Ferrous Sulfate [Iron (65 MG 325 mg PO DAILY 04/04/22 04/04/22 Elemental)] HYDROcodone/APAP 7.5-325MG [[place] 1 tab PO Q8H PRN 04/04/22 04/04/22 7.5-325] Levothyroxine Sodium [Synthroid] 75 mcg PO DAILY 04/04/22 04/04/22 Previous Rx's Medication Instructions Recorded Diltiazem Cd [Cardizem CD] 180 mg PO DAILY 30 Days 09/03/21 Sertraline [Zoloft] 150 mg PO DAILY 30 Days tab 09/03/21 traZODone HCL [Desyrel] 150 mg PO HS 30 Days tab 09/03/21 Albuterol Inhaler [Ventolin Hfa 1 puff INHALATION RT-TID #8 gm 07/17/22 Inhaler] Apixaban [Eliquis Starter Pack 5 - 10 mg PO DIRECTED 30 Days 07/17/22 (for VTE)] #1 each Doxycycline [Vibramycin] 100 mg PO BID 7 Days #14 capsule 07/17/22 predniSONE [Deltasone] 40 mg PO DAILY 5 Days #10 tab 07/17/22 Allergies Allergy/AdvReac Type Severity Reaction Status Date / Time Penicillins Allergy Unknown Verified 07/16/22 22:35 Childhood Review of Systems ROS Statement: Those systems with pertinent positive or pertinent negative responses have been documented in the HPI. Review of Systems: CONST: Denies fever EYES: Denies blurry vision ENT: Endorses nasal congestion C/V: Endorses chronic chest pain RESP: Endorses mild shortness of breath, primarily cough. GI: Denies abdominal pain : Denies dysuria SKIN: Denies rash. MSK: Denies joint pain. NEURO: Denies headache ROS Other: All systems not noted in ROS Statement are negative. Past Medical History Past Medical History: Hypertension, Pulmonary Embolus (PE) Additional Past Medical History / Comment(s): Pt states she has an arrythmia, pancreatitis and chronic back pain. Herniated Disk. History of Any Multi-Drug Resistant Organisms: CRE, Other MDRO Date of last positivie culture/infection: 07/16/21 MDRO Source:: URINE Past Surgical History: Appendectomy, Orthopedic Surgery Additional Past Surgical History / Comment(s): titanium wrist, Exploratory surgery. Past Anesthesia/Blood Transfusion Reactions: No Reported Reaction Past Psychological History: Anxiety, Depression Smoking Status: Former smoker Past Alcohol Use History: None Reported Past Drug Use History: None Reported - Past Family History Father History Unknown: Yes Family Medical History: Osteoarthritis (OA) General Exam - General Exam Comments Initial Comments: General: Appears in no acute distress. HEAD: Normal with no signs of head trauma. EYES: PERRLA, EOMI, conjunctiva normal, no discharge. ENT: Hearing grossly intact, normal oropharynx. RESPIRATORY: Bilateral end expiratory wheezing. No increased work of breathing. No hypoxia. C/V: Tachycardic with regular rhythm. S1 and S2 auscultated. No peripheral edema. No leg swelling. Peripheral pulses 2+ and intact throughout. ABD: Abd is soft, nontender, nondistended EXT: Normal range of motion, no obvious deformity SKIN: No rashes or lesions observed on exposed skin. NEURO: Alert and oriented 4. No focal deficits. Course Vital Signs 07/16/22 07/16/22 07/16/22 22:31 23:31 23:53 Temperature 98.4 F Pulse Rate 130 H 128 H 116 H Respiratory 18 17 Rate Blood Pressure 156/78 133/74 O2 Sat by Pulse 98 100 Oximetry 07/17/22 00:08 Temperature Pulse Rate 120 H Respiratory Rate Blood Pressure O2 Sat by Pulse Oximetry Medical Decision Making - Medical Decision Making Based on the patient's presentation and physical exam, she presents tachycardic with mild shortness of breath, chronic chest pain that she has on a daily basis, with a history of pulmonary embolism noncompliant with blood thinning medication. Also did not take her evening dose of metoprolol for her chronic sinus tachycardia. Is a smoker and appears to have wheezing bilaterally. She is having upper respiratory infectious symptoms. We will obtain cardiopulmonary laboratory studies, CT angiogram for PE with her history, tachycardia, subjective mild dyspnea. We will treat her for COPD at this time and give her a dose of her home metoprolol. She will receive an aspirin. She was in agreement this plan.: Supple be obtained. She'll be connected to continuous cardiac monitoring with continuous pulse oximetry. She was in agreement this plan. EKG shows sinus tachycardia. No acute ischemic changes.Patient's laboratory studies are remarkable for an undetectable troponin. BNP is within normal limits. Covid is negative. Remainder the labs are unremarkable. CT PE was negative for acute process. No pulmonary embolism. On reevaluation, patient's tachycardia has resolved. Her wheezing is improved as well. I discussed with her the results of her workup. I do believe it is safer to be discharged home. We discussed at length that she should be on Eliquis for recent history of PE. She was in agreement and requested a new prescription. I will give her a dose here as well as a prescription. She'll also be treated for bronchitis and acute COPD exacerbation. Vital signs remained within normal limits. I believe it is safer to be discharged home at this time. Heart score is low at 1-2. I will provide the patient with a prescription for doxycycline, prednisone, a lbuterol inhaler, Eliquis. I instructed the patient to follow up with their PCP in the next 1-3 days. I explained that the patient should return to the emergency department if they experience any worsening symptoms. Strict return precautions were discussed with the patient. The patient expressed understanding of these instructions. I answered all questions that the patient had. The patient was discharged home in good condition with their prescriptions and follow up information. - Lab Data Result diagrams: 07/16/22 23:30 07/16/22 23:30 Lab Results 07/16/22 07/16/22 07/16/22 Range/Units 23:00 23:30 23:30 WBC 8.4 (3.8-10.6) k/uL RBC 3.93 (3.80-5.40) m/uL Hgb 12.7 (11.4-16.0) gm/dL Hct 38.9 (34.0-46.0) % MCV 98.8 (80.0-100.0) fL MCH 32.3 (25.0-35.0) pg MCHC 32.7 (31.0-37.0) g/dL RDW 14.6 (11.5-15.5) % Plt Count 273 (150-450) k/uL MPV 7.2 Neutrophils % 68 % Lymphocytes % 25 % Monocytes % 5 % Eosinophils % 1 % Basophils % 1 % Neutrophils # 5.6 (1.3-7.7) k/uL Lymphocytes # 2.1 (1.0-4.8) k/uL Monocytes # 0.4 (0-1.0) k/uL Eosinophils # 0.0 (0-0.7) k/uL Basophils # 0.1 (0-0.2) k/uL PT 10.0 (9.0-12.0) sec INR 0.9 (<1.2) APTT 22.7 (22.0-30.0) sec Sodium (137-145) mmol/L Potassium (3.5-5.1) mmol/L Chloride (98-107) mmol/L Carbon Dioxide (22-30) mmol/L Anion Gap mmol/L BUN (7-17) mg/dL Creatinine (0.52-1.04) mg/dL Est GFR (CKD-EPI)AfAm (>60 ml/min/1.73 sqM) Est GFR (CKD-EPI)NonAf (>60 ml/min/1.73 sqM) Glucose (74-99) mg/dL Calcium (8.4-10.2) mg/dL Magnesium (1.6-2.3) mg/dL Total Bilirubin (0.2-1.3) mg/dL AST (14-36) U/L ALT (4-34) U/L Alkaline Phosphatase (38-126) U/L Troponin I (0.000-0.034) ng/mL NT-Pro-B Natriuret Pep pg/mL Total Protein (6.3-8.2) g/dL Albumin (3.5-5.0) g/dL Coronavirus (PCR) Not Detected (Not Detectd) 07/16/22 07/16/22 07/16/22 Range/Units 23:30 23:30 23:30 WBC (3.8-10.6) k/uL RBC (3.80-5.40) m/uL Hgb (11.4-16.0) gm/dL Hct (34.0-46.0) % MCV (80.0-100.0) fL MCH (25.0-35.0) pg MCHC (31.0-37.0) g/dL RDW (11.5-15.5) % Plt Count (150-450) k/uL MPV Neutrophils % % Lymphocytes % % Monocytes % % Eosinophils % % Basophils % % Neutrophils # (1.3-7.7) k/uL Lymphocytes # (1.0-4.8) k/uL Monocytes # (0-1.0) k/uL Eosinophils # (0-0.7) k/uL Basophils # (0-0.2) k/uL PT (9.0-12.0) sec INR (<1.2) APTT (22.0-30.0) sec Sodium 143 (137-145) mmol/L Potassium 4.1 (3.5-5.1) mmol/L Chloride 108 H (98-107) mmol/L Carbon Dioxide 19 L (22-30) mmol/L Anion Gap 16 mmol/L BUN 9 (7-17) mg/dL Creatinine 0.99 (0.52-1.04) mg/dL Est GFR (CKD-EPI)AfAm 80 (>60 ml/min/1.73 sqM) Est GFR (CKD-EPI)NonAf 70 (>60 ml/min/1.73 sqM) Glucose 133 H (74-99) mg/dL Calcium 8.5 (8.4-10.2) mg/dL Magnesium 2.1 (1.6-2.3) mg/dL Total Bilirubin 0.3 (0.2-1.3) mg/dL AST 76 H (14-36) U/L ALT 37 H (4-34) U/L Alkaline Phosphatase 91 (38-126) U/L Troponin I <0.012 (0.000-0.034) ng/mL NT-Pro-B Natriuret Pep 76 pg/mL Total Protein 6.6 (6.3-8.2) g/dL Albumin 4.2 (3.5-5.0) g/dL Coronavirus (PCR) (Not Detectd) - EKG Data -: EKG Interpreted by Me EKG Comments: 12-lead Electrocardiogram Interpretation Note EKG was reviewed and interpreted by myself. 12-lead ECG performed at 2246 is interpreted by me as revealing sinus tachycardia at a rate of 131 beats per minute. [place] is normal. RI interval is 143 ms, QRS duration is 92 ms, QTc is 377 ms.. There were no acute ST or T wave abnormalities to suggest myocardial ischemia or injury. Chronic T-wave inversion in lead III. R wave progression across the precordium was satisfactory. By my interpretation this EKG is non- diagnostic for acute ischemia. No change when compared to prior EKG from March 2022. Only changes tachycardia. Disposition Clinical Impression: COPD (chronic obstructive pulmonary disease), Chronic chest pain, History of pulmonary embolism, Noncompliance with medication regimen, Acute bronchitis Disposition: HOME SELF-CARE Condition: Good Instructions (If sedation given, give patient instructions): COPD (Chronic Obstructive Pulmonary Disease) (ED), Acute Bronchitis (ED) Prescriptions: predniSONE [Deltasone] 40 mg PO DAILY 5 Days #10 tab Apixaban [Eliquis Starter Pack (for VTE)] 5 - 10 mg PO DIRECTED 30 Days #1 each Albuterol Inhaler [Ventolin Hfa Inhaler] 1 puff INHALATION RT-TID #8 gm Doxycycline [Vibramycin] 100 mg PO BID 7 Days #14 capsule Is patient prescribed a controlled substance at d/c from ED?: No Referrals: Josef Carlson MD [Primary Care Provider] - 1-2 days Time of Disposition: 00:50
[2022-07-16 23:47] LABS: Basophils # (A) 0.1 k/uL (0-0.2); Basophils % (A) 1 %; Eosinophils % (A) 1 %; HCT 38.9 % (34.0-46.0); HGB 12.7 gm/dL (11.4-16.0); Lymphocytes # (A) 2.1 k/uL (1.0-4.8); Lymphocytes % (A) 25 %; MCH 32.3 pg (25.0-35.0); MCHC 32.7 g/dL (31.0-37.0); MCV 98.8 fL (80.0-100.0); Mean Platelet Volume 7.2; Monocytes # (A) 0.4 k/uL (0-1.0); Monocytes % (A) 5 %; Neutrophils # (A) 5.6 k/uL (1.3-7.7); Neutrophils % (A) 68 %; Platelet Count 273 k/uL (150-450); RBC 3.93 m/uL (3.80-5.40); RDW 14.6 % (11.5-15.5); WBC 8.4 k/uL (3.8-10.6)
--- NOTE | 2022-07-17 00:05 | CT ---
EXAMINATION TYPE: CT chest angio for PE DATE OF EXAM: 07/16/2022 COMPARISON: 03/14/2022 HISTORY: pe CT DLP: 497.2 mGycm Automated exposure control for dose reduction was used. CONTRAST: Performed with IV Contrast, patient injected with 75 mL of Isovue 370. There are 3-D post processed images. The lungs are clear of infiltrate. No pleural effusion. There are no hilar masses. No mediastinal rashid nopathy. Heart size is normal. No pericardial effusion. Upper abdominal soft tissues are intact. Liver appears large. There is no evidence of filling defect in the pulmonary arteries. Thoracic aorta measures up to 3.3 cm. No aneurysm or dissection. The thoracic spine is intact. Sternu m is intact. No compression fracture. IMPRESSION: No evidence of pulmonary embolism. No suspicious pulmonary mass. Fatty infiltration of the liver. No evidence of emboli in the subsegmental lower lobe pulmonary artery branches that is suggested by prev ious report.
[2022-07-17 00:07] LABS: INR 0.9 (<1.2); Partial Thromboplastin Time 22.7 sec (22.0-30.0)
[2022-07-17 00:19] LABS: Albumin 4.2 g/dL (3.5-5.0); Calcium 8.5 mg/dL (8.4-10.2); Magnesium 2.1 mg/dL (1.6-2.3); Potassium 4.1 mmol/L (3.5-5.1); Total Bilirubin 0.3 mg/dL (0.2-1.3); Total Protein 6.6 g/dL (6.3-8.2)
[2022-07-17] MEDS ORDERED: DOXYCYCLINE 100 MG CAP PO STA (00:53)
[2022-07-17] MEDS ORDERED: APIXABAN 5 MG TAB PO STA (00:54)
[2022-07-17] MEDS ORDERED: ONDANSETRON 4 MG/2 ML VIAL IVP STA (01:17)
[2022-07-17 01:25] VITALS: BP 133/65; PULSE 104; RESP 15
== END 2022-07-17 01:25 | disposition home or self-care (01) ==
LOC: EC 22:16
DX: R07.9 Chest pain, unspecified (principal); J44.0 Chronic obstructive pulmonary disease with (acute) lower respiratory infection; I26.99 Other pulmonary embolism without acute cor pulmonale; J40 Bronchitis, not specified as acute or chronic; I10 Essential (primary) hypertension; F41.9 Anxiety disorder, unspecified; F32.A Depression, unspecified; Z91.14 Patient's other noncompliance with medication regimen; Z88.0 Allergy status to penicillin; Z20.822 Contact with and (suspected) exposure to COVID-19; Z79.01 Long term (current) use of anticoagulants
CPT/HCPCS: 99284 ×2; 96374 ×2; 96375 ×2; 36415; 94640; 93005; 83880; 80053; 83735; 84484; 85025; 85610; 85730; 87635; 71275; 99285; J2930; J2405; Q9967

== ENCOUNTER 2022-10-11 22:58 | Inpatient (IN) | payer OTHER ==
[2022-10-11] MEDS ORDERED: MORPHINE SULFATE 4 MG/ML SYRINGE IV STA (23:13)
[2022-10-11] MEDS ORDERED: ONDANSETRON ODT 8 MG TAB.RAPDIS PO STA (23:13)
[2022-10-11] MEDS ORDERED: SODIUM CHLORIDE 0.9% 1,000 ML with THIAMINE 100 MG, FOLIC ACID 1 MG IV ONE ×3 (23:15)
[2022-10-11] MEDS ORDERED: METOPROLOL TARTRATE 25 MG TAB PO STA (23:16)
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
[2022-10-12 00:35] LABS: Appearance,Urine Cloudy (Clear); Bacteria,Urine Occasional /hpf; Bilirubin,Urine Negative (Negative); Blood,Urine Moderate (Negative); Color,Urine Yellow; Glucose,Urine (UA) Negative (Negative); Hyaline Casts,Urine 1 /lpf (0-2); Ketones,Urine Negative (Negative); Leukocyte Esterase,Urine Negative (Negative); Mucus,Urine Few /hpf; Nitrite,Urine Negative (Negative); PH, Urine 5.5 (5.0-8.0); Protein,Urine Trace (Negative); RBC,Urine 1 /hpf (0-5); Specific Gravity,Urine 1.013 (1.001-1.035); Squamous Epithelial Cell,Urine 5 /hpf (0-4); Urobilinogen,Urine <2.0 mg/dL (<2.0); WBC,Urine 2 /hpf (0-5)
[2022-10-12 00:35] LABS: Anisocytosis Slight; Basophils # (A) 0.1 k/uL (0-0.2); Basophils % (A) 1 %; Eosinophils # (A) 0.1 k/uL (0-0.7); Eosinophils % (A) 1 %; HCT 27.7 % (34.0-46.0); HGB 8.7 gm/dL (11.4-16.0); Hypochromasia Marked; Lymphocytes # (A) 1.3 k/uL (1.0-4.8); Lymphocytes % (A) 20 %; MCHC 31.3 g/dL (31.0-37.0); MCV 92.7 fL (80.0-100.0); Mean Platelet Volume 7.8; Monocytes # (A) 0.4 k/uL (0-1.0); Monocytes % (A) 6 %; Neutrophils # (A) 4.6 k/uL (1.3-7.7); Neutrophils % (A) 70 %; Platelet Count 268 k/uL (150-450); Poikilocytosis Slight; RBC 2.98 m/uL (3.80-5.40); RDW 17.6 % (11.5-15.5); WBC 6.6 k/uL (3.8-10.6)
[2022-10-12 00:41] LABS: ALT 32 U/L (4-34); AST 59 U/L (14-36); African American GFR (CKD) >90 (>60 ml/min/1.73 sqM); Albumin 4.5 g/dL (3.5-5.0); Alkaline Phosphatase 80 U/L (38-126); Anion Gap 10 mmol/L; Blood Urea Nitrogen 16 mg/dL (7-17); Calcium 8.3 mg/dL (8.4-10.2); Carbon Dioxide 23 mmol/L (22-30); Chloride 112 mmol/L (98-107); Glucose 154 mg/dL (74-99); Lipase 616 U/L (23-300); Magnesium 1.9 mg/dL (1.6-2.3); Non-African American GFR(CKD) >90 (>60 ml/min/1.73 sqM); Phosphorus 3.2 mg/dL (2.5-4.5); Potassium 3.9 mmol/L (3.5-5.1); Sodium 145 mmol/L (137-145); Total Bilirubin 0.2 mg/dL (0.2-1.3); Total Protein 7.1 g/dL (6.3-8.2)
[2022-10-12 00:41] LABS: Amphetamine Screen,Urine Not Detected (NotDetected); Barbiturate Screen,Urine Not Detected (NotDetected); Benzodiazepines Screen,Urine Not Detected (NotDetected); Cocaine Screen,Urine Not Detected (NotDetected); Methadone Screen, Urine Not Detected (NotDetected); Opiate Screen,Urine Not Detected (NotDetected); Oxycodone Screen, Urine Not Detected (NotDetected); Phencyclidine Screen,Urine Not Detected (NotDetected); Tricyclic Antidepressant,Urine Not Detected (NotDetected); Urn Cannabinoid Scrn Detected (NotDetected)
[2022-10-12 00:45] LABS: INR 0.9 (<1.2); Partial Thromboplastin Time 21.7 sec (22.0-30.0); Prothrombin Time 10.1 sec (9.0-12.0)
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
--- NOTE | 2022-10-12 00:50 | XR ---
EXAMINATION TYPE: XR chest 1V portable DATE OF EXAM: 10/12/2022 COMPARISON: 04/04/2022 HISTORY: Chest pain TECHNIQUE: FINDINGS: There is no heart failure nor confluent pneumonic infiltrate. Costophrenic angles are clear . There are no hilar masses. The bony thorax is intact. IMPRESSION: No active cardiopulmonary disease. No change.
[2022-10-12 00:51] LABS: Alcohol 315 mg/dL
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
[2022-10-12] MEDS ORDERED: PANTOPRAZOLE 40 MG/10 ML VIAL IVP STA (01:21)
[2022-10-12] MEDS ORDERED: NALOXONE 0.4 MG/ML 1 ML VIAL IV PRN (01:44)
[2022-10-12] MEDS ORDERED: LORazepam 2 MG/ML INJ IV PRN (03:56)
[2022-10-12] MEDS: MORPHINE SULFATE 4 MG/ML SYRINGE IV PRN ×5 (04:16→22:17)
[2022-10-12] MEDS: ALBUTEROL NEBULIZED 2.5 MG/3 ML INHALATION SCH ×3 (07:27→20:12)
[2022-10-12] MEDS: LORazepam 2 MG/ML INJ IV PRN ×2 (08:40→22:16)
[2022-10-12] MEDS: ONDANSETRON 4 MG/2 ML VIAL IVP PRN ×2 (08:41→13:10)
[2022-10-12] MEDS ORDERED: PANTOPRAZOLE 40 MG/10 ML VIAL IV SCH (09:00)
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
[2022-10-12 16:30] LABS: % Iron Saturation 2.13 (12.00-45.00); Ferritin 17.3 ng/mL (10.0-291.0)
--- NOTE | 2022-10-12 16:56 | US ---
EXAMINATION TYPE: US abdomen complete DATE OF EXAM: 10/12/2022 COMPARISON: Ultrasound gallbladder 03/14/2022 CT abdomen pelvis 02/16/2022 CLINICAL HISTORY: pancreatitis. Nausea and vomiting x 2 weeks. Exam limited due to body habitus. TECHNIQUE: Multiple sonographic images of the abdomen are obtained. FINDINGS: EXAM MEASUREMENTS: Liver Length: 16.9 cm Gallbladder Wall: .3 cm CBD: 0.4 cm Spleen: 10.9 cm Right Kidney: 9.8 x 4.7 x 4.1 cm Left Kidney: 10.1 x 5.9 x 4.9 cm Pancreas: Obscured by bowel gas Liver: Increased attenuation Gallbladder: No stones seen Evidence for sonographic Demarco's sign: No CBD: wnl Spleen: wnl Right Kidney: No hydronephrosis or masses seen Left Kidney: No hydronephrosis or masses seen Upper IVC: wnl Abd Aorta: wnl The liver is homogenous. The intrahepatic portion of the IVC and proximal abdominal aorta are within normal limits. There is no evidence of cholelithiasis. Common bile duct is unremarkable. The visu alized portions of the pancreas are homogenous. The spleen is unremarkable. Kidneys are symmetric a nd free of hydronephrosis. No renal lesions are seen. IMPRESSION: 1. Poor visualization of pancreas due to bowel gas. 2. Hepatocellular disease commonly relating to hepatic steatosis.
[2022-10-12] MEDS: hydroCHLOROthiazide 25 MG TAB PO SCH (16:57)
[2022-10-12] MEDS: DILTIAZEM CD 180 MG CAP.ER.24H PO SCH (16:57)
[2022-10-12] MEDS: PRAZOSIN 1 MG CAP PO SCH (20:33)
[2022-10-12] MEDS: METOPROLOL TARTRATE 25 MG TAB PO SCH (20:33)
[2022-10-12] MEDS: APIXABAN 5 MG TAB PO SCH (20:33)
[2022-10-12] MEDS: PANTOPRAZOLE 40 MG TABLET PO SCH (20:33)
[2022-10-12] MEDS: traZODone HCL 50 MG TAB PO SCH (20:34)
[2022-10-13] MEDS: MORPHINE SULFATE 4 MG/ML SYRINGE IV PRN ×5 (02:06→20:23)
[2022-10-13] MEDS: LEVOTHYROXINE 75 MCG TAB PO SCH (05:31)
[2022-10-13] MEDS: ALBUTEROL NEBULIZED 2.5 MG/3 ML INHALATION SCH ×3 (07:20→19:34)
[2022-10-13] MEDS: LORazepam 2 MG/ML INJ IV PRN ×4 (07:55→20:36)
[2022-10-13] MEDS ORDERED: FERROUS SULFATE 325 MG TAB PO SCH (09:00)
[2022-10-13 10:35] LABS: Basophils # (A) 0.02 X 10*3/uL (0.00-0.10); Basophils % (A) 0.6 %; Eosinophils # (A) 0.07 X 10*3/uL (0.04-0.35); Eosinophils % (A) 2.1 %; HCT 26.7 % (37.2-46.3); HGB 7.8 g/dL (12.0-15.0); Immature Grans, Automated 0.3 %; Lymphocytes % (A) 27.6 %; MCH 28.2 pg (27.0-32.0); MCHC 29.2 g/dL (32.0-37.0); MCV 96.4 fL (80.0-97.0); Mean Platelet Volume 10.1 fL (9.5-12.2); Monocytes # (A) 0.43 X 10*3/uL (0.20-1.00); Monocytes % (A) 13.2 %; NRBC Per 100 WBC 0 /100 WBCS (0.0-0.0); Neutrophils # (A) 1.83 X 10*3/uL (1.80-7.70); Neutrophils % (A) 56.2 %; Platelet Count 192 X 10*3/uL (140-440); RBC 2.77 X 10*6/uL (4.10-5.20); RDW 18.2 % (11.5-14.5); WBC 3.26 X 10*3/uL (4.50-10.00)
[2022-10-13 11:01] LABS: African American GFR (CKD) 123.8 (60.0-200.0); BUN/Creat Ratio 13.47 Ratio (12.00-20.00); Blood Urea Nitrogen 8.9 mg/dL (9.0-27.0); Carbon Dioxide 24.6 mmol/L (20.0-27.5); Non-African American GFR(CKD) 106.8 (60.0-200.0); Potassium 3.9 mmol/L (3.5-5.5)
[2022-10-13] MEDS: SODIUM FERRIC GLUCONAT-SUCROSE 125 MG in SODIUM CHLORIDE 0.9% 100 ML IVPB SCH (11:10)
[2022-10-13] MEDS: hydroCHLOROthiazide 25 MG TAB PO SCH (11:11)
[2022-10-13] MEDS: METOPROLOL TARTRATE 25 MG TAB PO SCH ×2 (11:11→20:23)
[2022-10-13] MEDS: SERTRALINE 50 MG TAB PO SCH (11:11)
[2022-10-13] MEDS: PANTOPRAZOLE 40 MG TABLET PO SCH ×2 (11:11→20:23)
[2022-10-13] MEDS: DILTIAZEM CD 180 MG CAP.ER.24H PO SCH (11:11)
[2022-10-13] MEDS: THIAMINE 100 MG TAB PO SCH (11:11)
[2022-10-13 11:44] LABS: INR 0.94 (0.90-1.11); Prothrombin Time 10.6 sec (9.9-11.9)
[2022-10-13] MEDS: APIXABAN 5 MG TAB PO SCH (11:55)
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
--- NOTE | 2022-10-13 20:04 | XR ---
EXAMINATION TYPE: XR chest 2V DATE OF EXAM: 10/13/2022 COMPARISON: 10/12/2022 HISTORY: Cough TECHNIQUE: 2 views FINDINGS: Heart is normal. Lungs are clear. Diaphragm is normal. Bony thorax is intact. IMPRESSION: Normal chest. No change.
[2022-10-13] MEDS: traZODone HCL 50 MG TAB PO SCH (20:23)
[2022-10-13] MEDS: PRAZOSIN 1 MG CAP PO SCH (20:23)
[2022-10-13] MEDS: IPRATROPIUM-ALBUTEROL 3 ML NEB INHALATION SCH (21:25)
[2022-10-14] MEDS: MORPHINE SULFATE 4 MG/ML SYRINGE IV PRN ×5 (00:12→19:57)
[2022-10-14] MEDS: methylPREDNISolone SOD SUCCI 40 MG/ML 1 ML VIAL IV SCH ×3 (00:13→17:20)
[2022-10-14] MEDS: GABAPENTIN 300 MG CAP PO PRN (04:11)
[2022-10-14] MEDS: LEVOTHYROXINE 75 MCG TAB PO SCH (06:01)
[2022-10-14] MEDS: LORazepam 2 MG/ML INJ IV PRN ×11 (07:45→22:02)
[2022-10-14] MEDS: THIAMINE 100 MG TAB PO SCH (07:46)
[2022-10-14] MEDS: METOPROLOL TARTRATE 25 MG TAB PO SCH ×2 (07:46→17:08)
[2022-10-14] MEDS: PANTOPRAZOLE 40 MG TABLET PO SCH ×2 (07:46→19:56)
[2022-10-14] MEDS: hydroCHLOROthiazide 25 MG TAB PO SCH (07:46)
[2022-10-14] MEDS: SERTRALINE 50 MG TAB PO SCH (07:46)
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
[2022-10-14] MEDS: DILTIAZEM CD 180 MG CAP.ER.24H PO SCH (07:56)
[2022-10-14 09:25] LABS: Basophils # (A) 0.01 X 10*3/uL (0.00-0.10); Basophils % (A) 0.3 %; Eosinophils # (A) 0.01 X 10*3/uL (0.04-0.35); Eosinophils % (A) 0.3 %; HCT 28.4 % (37.2-46.3); HGB 8.6 g/dL (12.0-15.0); Immature Grans, Automated 0.5 %; Lymphocytes # (A) 0.32 X 10*3/uL (0.90-5.00); Lymphocytes % (A) 8.7 %; MCH 28.8 pg (27.0-32.0); MCHC 30.3 g/dL (32.0-37.0); Mean Platelet Volume 10.3 fL (9.5-12.2); Monocytes # (A) 0.07 X 10*3/uL (0.20-1.00); Monocytes % (A) 1.9 %; NRBC Per 100 WBC 0 /100 WBCS (0.0-0.0); Neutrophils # (A) 3.23 X 10*3/uL (1.80-7.70); Neutrophils % (A) 88.3 %; Platelet Count 225 X 10*3/uL (140-440); RBC 2.99 X 10*6/uL (4.10-5.20); RDW 18.1 % (11.5-14.5); WBC 3.66 X 10*3/uL (4.50-10.00)
[2022-10-14] MEDS: ALBUTEROL NEBULIZED 2.5 MG/3 ML INHALATION SCH (09:35)
[2022-10-14] MEDS: IPRATROPIUM-ALBUTEROL 3 ML NEB INHALATION SCH ×4 (09:35→20:59)
[2022-10-14 09:54] LABS: African American GFR (CKD) 121.3 (60.0-200.0); Albumin 4.6 g/dL (3.8-4.9); Albumin/Globulin Ratio 1.84 (1.60-3.17); Anion Gap 12.8 mmol/L (10.00-18.00); BUN/Creat Ratio 21.57 Ratio (12.00-20.00); Blood Urea Nitrogen 15.1 mg/dL (9.0-27.0); Calcium 9.7 mg/dL (8.7-10.3); Carbon Dioxide 22.2 mmol/L (20.0-27.5); Globulin 2.5 g/dL (1.6-3.3); Non-African American GFR(CKD) 104.6 (60.0-200.0); Potassium 4.6 mmol/L (3.5-5.5); Total Bilirubin 0.4 mg/dL (0.30-1.20); Total Protein 7.1 g/dL (6.2-8.2)
[2022-10-14] MEDS: SODIUM FERRIC GLUCONAT-SUCROSE 125 MG in SODIUM CHLORIDE 0.9% 100 ML IVPB SCH (10:16)
[2022-10-14] MEDS: ONDANSETRON 4 MG/2 ML VIAL IVP PRN (10:16)
[2022-10-14] MEDS ORDERED: MIDAZOLAM 2 MG/2 ML VIAL ONE (14:18)
[2022-10-14] MEDS ORDERED: PROPOFOL 10 MG/ML 20 ML VIAL IV ONE (14:18)
[2022-10-14] MEDS ORDERED: LIDOCAINE 2% INJ 20 MG/ML (2 ML VIAL) ONE (14:18)
[2022-10-14] MEDS ORDERED: SODIUM CHLORIDE 0.9% 500 ML 500 ML IV ONE (14:23)
--- NOTE | 2022-10-14 14:28 | P.PCN ---
Date of Procedure: 10/14/22 Procedure(s) Performed: BRIEF HISTORY: Patient is a 47-year-old, pleasant, white female admitted hospital with acute alcoholic intoxication. She is been having intermittent nausea vomiting since admission to hospital. Esophagus: Hemoglobin from 8.5-7.3 g/dL. Schedule for an upper endoscopy to evaluate for any upper GI pathology. PROCEDURE PERFORMED: Esophagogastroduodenoscopy with biopsy. PREOPERATIVE DIAGNOSIS: Anemia/nausea vomiting IV sedation per anesthesia. PROCEDURE: After informed consent was obtained, the patient was brought into the endoscopy unit. IV sedation was administered by Anesthesia under continuous monitoring. Initially the Olympus GIF-140 video endoscope was inserted into the mouth. Esophagus intubated without any difficulty. It was gradually advanced into the stomach and duodenum and carefully examined. The bulb had mild duodenitis and the second part of the duodenum appeared normal. The scope at this time was withdrawn to the stomach, adequately insufflated with air, and upon careful examination, mucosa of the antrum, had mild diffuse gastritis and biopsies were done from this area. No ulcerations noted. Mucosa of the body, cardia and the fundus appeared normal. The scope was then withdrawn into the esophagus. The GE junction was located at 39 cm from the incisors. The esophagus appeared normal. There were no erosions or ulcerations seen and the patient tolerated the procedure well. IMPRESSION: 1. Mild antral gastritis and duodenitis. 2. No evidence of peptic ulcer disease. RECOMMENDATIONS: The findings of this examination were discussed with the patient she was advised to follow with the biopsy results. Continue with Protonix 40 mg daily and antiemetics. Advance diet as tolerated.
[2022-10-14] MEDS: NICOTINE 21MG/24HR PATCH TRANSDERM SCH (17:08)
[2022-10-14] MEDS: ENOXAPARIN 40 MG/0.4 ML SYRINGE SQ SCH (17:09)
--- NOTE | 2022-10-14 17:59 | CT ---
EXAMINATION TYPE: CT angio chest DATE OF EXAM: 10/14/2022 COMPARISON: 07/16/2022 HISTORY: poss pe CT DLP: 626.3 mGycm Automated exposure control for dose reduction was used. CONTRAST: Performed with IV Contrast, patient injected with 67ml mL of Isovue 370. Images obtained from the thoracic inlet to the diaphragm with the IV contrast. There are Three-D post processed images. There is some mild interstitial infiltrate in the lower lung addison. Heart size is top normal. No per icardial effusion. There are no hilar masses. There is no mediastinal adenopathy. Thoracic aorta is i ntact. No aneurysm or dissection. There is normal contrast opacification of the pulmonary arteries. No filling defect. Bony thorax is i ntact. No compression fracture. IMPRESSION: No evidence of pulmonary embolism. Mild groundglass pulmonary interstitial density in the mid and low er lung addison. Mild cardiomegaly. Pulmonary edema appears new compared to old exam. Cardiomegaly is new compared to old exam. This could be mild acute heart failure.
[2022-10-14] MEDS: PRAZOSIN 1 MG CAP PO SCH (19:56)
[2022-10-14] MEDS: traZODone HCL 50 MG TAB PO SCH (19:56)
[2022-10-15] MEDS: methylPREDNISolone SOD SUCCI 40 MG/ML 1 ML VIAL IV SCH ×4 (00:19→23:44)
[2022-10-15] MEDS: LORazepam 2 MG/ML INJ IV PRN ×6 (00:21→21:59)
--- NOTE | 2022-10-15 05:54 | PN ---
PROGRESS NOTE SUBJECTIVE: She is admitted for alcohol intoxication, alcohol withdrawal, cough, congestion, shortness of breath, asthma, and COPD exacerbation. Started her on steroids yesterday for high amounts of wheezing and phlegm. She has positive D-dimer. CT of the chest was ordered. She remains on CIWA protocol. OBJECTIVE: VITAL SIGNS: She is saturating 90 to 94 on room air, temp 98.6, blood pressure 140s over 80s, pulse 79, and respiratory rate 17-20. CARDIOVASCULAR: S1, S2. LUNGS: Wheezes, rales, and rhonchi. ABDOMEN: Distended. GI ordered ultrasound. Waiting for EGD would be performed today for severe anemia. The patient started on IV Venofer for iron deficiency anemia. Ultrasound of the abdomen showed hepatocellular disease, hepatic steatosis. Wait for GI recommendations. Continue with steroids. Hemoglobin is increased from 70 to 86 today. Elevated D-dimer as mentioned. CT of the chest has been ordered. Prognosis guarded. She is negative for , negative for stool occult blood. Wait for GI recommendations. Treat with steroids and updrafts. Procalcitonin is negative. MMODL / IJN: [id number] /
[2022-10-15] MEDS: IPRATROPIUM-ALBUTEROL 3 ML NEB INHALATION SCH ×4 (07:57→21:40)
[2022-10-15] MEDS: METOPROLOL TARTRATE 25 MG TAB PO SCH ×2 (09:43→21:52)
[2022-10-15] MEDS: ENOXAPARIN 40 MG/0.4 ML SYRINGE SQ SCH (09:43)
[2022-10-15] MEDS: NICOTINE 21MG/24HR PATCH TRANSDERM SCH ×2 (09:43→21:51)
[2022-10-15] MEDS: DILTIAZEM CD 180 MG CAP.ER.24H PO SCH (09:43)
[2022-10-15] MEDS: LEVOTHYROXINE 75 MCG TAB PO SCH (09:43)
[2022-10-15] MEDS: hydroCHLOROthiazide 25 MG TAB PO SCH (09:43)
[2022-10-15] MEDS: PANTOPRAZOLE 40 MG TABLET PO SCH ×2 (09:43→21:52)
[2022-10-15] MEDS: THIAMINE 100 MG TAB PO SCH (09:43)
[2022-10-15] MEDS: SERTRALINE 50 MG TAB PO SCH (09:43)
[2022-10-15] MEDS: SODIUM FERRIC GLUCONAT-SUCROSE 125 MG in SODIUM CHLORIDE 0.9% 100 ML IVPB SCH (09:44)
[2022-10-15] MEDS: MORPHINE SULFATE 4 MG/ML SYRINGE IV PRN ×4 (10:08→21:59)
[2022-10-15] MEDS: ONDANSETRON 4 MG/2 ML VIAL IVP PRN (13:32)
[2022-10-15] MEDS: traZODone HCL 50 MG TAB PO SCH (21:52)
[2022-10-15] MEDS: PRAZOSIN 1 MG CAP PO SCH (22:41)
[2022-10-15] MEDS: FUROSEMIDE 10 MG/ML 2 ML VIAL IV SCH (22:44)
[2022-10-16] MEDS: MORPHINE SULFATE 4 MG/ML SYRINGE IV PRN ×5 (01:39→21:08)
[2022-10-16] MEDS: LORazepam 2 MG/ML INJ IV PRN ×5 (03:20→21:09)
--- NOTE | 2022-10-16 04:53 | PN ---
PROGRESS NOTE SUBJECTIVE: White female. She is behaving more today. Her behavior is much better. She is going through withdrawal, CIWA protocol, nicotine patch, Ativan p.r.n. OBJECTIVE: VITAL SIGNS: Temp 98.7, pulse 60s to 70s, respiratory rate 16-18, blood pressure 116/72, O2 sat 94 on room air. CARDIOVASCULAR: S1, S2. LUNGS: Clear. GI: Soft. PSYCHIATRIC: She is sleepy, lethargic. No signs of withdrawal. She is saturating good on room air. She had a chest CTA and EGD. EGD showed esophagitis and duodenitis. Chest CTA shows no PE, ground-glass interstitial density, mid to lower lung addison. Pulmonary edema appears new compared to old exam. Cardiomegaly. Mild acute heart failure. We will have to order an echo and see how that is. Check a BNP. Prognosis guarded. MMODL / IJN: [id number] /
[2022-10-16] MEDS: LEVOTHYROXINE 75 MCG TAB PO SCH (05:45)
[2022-10-16] MEDS: IPRATROPIUM-ALBUTEROL 3 ML NEB INHALATION SCH ×4 (07:44→20:56)
[2022-10-16] MEDS: SERTRALINE 50 MG TAB PO SCH (10:47)
[2022-10-16] MEDS: THIAMINE 100 MG TAB PO SCH (10:47)
[2022-10-16] MEDS: PANTOPRAZOLE 40 MG TABLET PO SCH ×2 (10:47→21:15)
[2022-10-16] MEDS: METOPROLOL TARTRATE 25 MG TAB PO SCH ×2 (10:47→21:15)
[2022-10-16] MEDS: ENOXAPARIN 40 MG/0.4 ML SYRINGE SQ SCH (10:47)
[2022-10-16] MEDS: FUROSEMIDE 10 MG/ML 2 ML VIAL IV SCH ×2 (10:48→21:14)
[2022-10-16] MEDS: NICOTINE 21MG/24HR PATCH TRANSDERM SCH (10:48)
[2022-10-16] MEDS: methylPREDNISolone SOD SUCCI 40 MG/ML 1 ML VIAL IV SCH ×2 (10:48→16:34)
[2022-10-16] MEDS: DILTIAZEM CD 180 MG CAP.ER.24H PO SCH (11:58)
[2022-10-16 13:40] LABS: Anisocytosis Slight; Basophils % (A) 0 %; Eosinophils % (A) 0 %; HCT 32.7 % (34.0-46.0); HGB 9.9 gm/dL (11.4-16.0); Hypochromasia Marked; Lymphocytes # (A) 0.9 k/uL (1.0-4.8); Lymphocytes % (A) 8 %; MCH 28.9 pg (25.0-35.0); MCHC 30.2 g/dL (31.0-37.0); MCV 95.5 fL (80.0-100.0); Macrocytosis Slight; Mean Platelet Volume 8.8; Monocytes # (A) 0.5 k/uL (0-1.0); Monocytes % (A) 4 %; Neutrophils # (A) 10.1 k/uL (1.3-7.7); Neutrophils % (A) 86 %; Platelet Count 302 k/uL (150-450); Poikilocytosis Slight; RBC 3.43 m/uL (3.80-5.40); RDW 18.3 % (11.5-15.5); WBC 11.8 k/uL (3.8-10.6)
[2022-10-16 13:55] LABS: ALT 28 U/L (4-34); AST 24 U/L (14-36); African American GFR (CKD) >90 (>60 ml/min/1.73 sqM); Albumin 4.9 g/dL (3.5-5.0); Albumin/Globulin Ratio 1.7; Alkaline Phosphatase 85 U/L (38-126); Anion Gap 10 mmol/L; Blood Urea Nitrogen 27 mg/dL (7-17); Calcium 9.2 mg/dL (8.4-10.2); Carbon Dioxide 23 mmol/L (22-30); Chloride 105 mmol/L (98-107); Globulin 2.9 g/dL; Glucose 152 mg/dL (74-99); Non-African American GFR(CKD) 89 (>60 ml/min/1.73 sqM); Potassium 4.1 mmol/L (3.5-5.1); Sodium 138 mmol/L (137-145); Total Bilirubin 0.4 mg/dL (0.2-1.3); Total Protein 7.8 g/dL (6.3-8.2)
[2022-10-16] MEDS: BENZONATATE 100 MG CAP PO SCH ×2 (16:34→21:14)
[2022-10-16] MEDS: traZODone HCL 50 MG TAB PO SCH (21:14)
[2022-10-16] MEDS: PRAZOSIN 1 MG CAP PO SCH (21:15)
[2022-10-17] MEDS: methylPREDNISolone SOD SUCCI 40 MG/ML 1 ML VIAL IV SCH ×4 (00:15→23:37)
--- NOTE | 2022-10-17 00:44 | PN ---
PROGRESS NOTE SUBJECTIVE: She is admitted for alcohol withdrawal, metabolic encephalopathy, delirium tremens. Remains on CIWA protocol. She still has [id number] amount of tremors. Blood pressure has been controlled with medications. OBJECTIVE: VITAL SIGNS: Currently 130s to 109 over 70s, O2 95 to 97 on room air, temperature 98 and 97, pulse 70, respiratory rate 18. GENERAL: She has a congested cough. LUNGS: Clear. Chest CTA was done due to persistent cough and congestion, show mild cardiomegaly, pulmonary edema, possible CHF. PLAN: I am going to order an echo, put her on IV , oral Lasix, take her off hydrochlorothiazide, GERD treatment. Wait for GI recommendations as she underwent EGD, it showed esophagitis. Prognosis is guarded. Follow up in next 24 to 48 hours. TERESA / LILY: [id number] /
[2022-10-17] MEDS: MORPHINE SULFATE 4 MG/ML SYRINGE IV PRN ×6 (02:15→23:37)
[2022-10-17] MEDS: LORazepam 2 MG/ML INJ IV PRN ×5 (02:16→18:29)
[2022-10-17] MEDS: LEVOTHYROXINE 75 MCG TAB PO SCH (05:40)
[2022-10-17] MEDS: IPRATROPIUM-ALBUTEROL 3 ML NEB INHALATION SCH ×4 (08:47→21:11)
[2022-10-17] MEDS: THIAMINE 100 MG TAB PO SCH (09:57)
[2022-10-17] MEDS: FUROSEMIDE 10 MG/ML 2 ML VIAL IV SCH ×2 (09:57→20:24)
[2022-10-17] MEDS: NICOTINE 21MG/24HR PATCH TRANSDERM SCH (09:57)
[2022-10-17] MEDS: DILTIAZEM CD 180 MG CAP.ER.24H PO SCH (09:57)
[2022-10-17] MEDS: BENZONATATE 100 MG CAP PO SCH ×3 (09:57→20:24)
[2022-10-17] MEDS: SERTRALINE 50 MG TAB PO SCH (09:57)
[2022-10-17] MEDS: PANTOPRAZOLE 40 MG TABLET PO SCH ×2 (09:57→20:24)
[2022-10-17] MEDS: METOPROLOL TARTRATE 25 MG TAB PO SCH ×2 (09:57→20:24)
[2022-10-17] MEDS: ENOXAPARIN 40 MG/0.4 ML SYRINGE SQ SCH (09:57)
[2022-10-17 10:09] LABS: Anisocytosis Slight; Basophils % (A) 0 %; Eosinophils % (A) 0 %; HGB 10.4 gm/dL (11.4-16.0); Hypochromasia Marked; Lymphocytes # (A) 1.5 k/uL (1.0-4.8); Lymphocytes % (A) 14 %; MCH 29.2 pg (25.0-35.0); MCHC 30.7 g/dL (31.0-37.0); Macrocytosis Slight; Monocytes # (A) 0.7 k/uL (0-1.0); Monocytes % (A) 6 %; Neutrophils # (A) 8.4 k/uL (1.3-7.7); Neutrophils % (A) 78 %; Platelet Count 308 k/uL (150-450); Poikilocytosis Slight; RBC 3.58 m/uL (3.80-5.40); RDW 18.1 % (11.5-15.5); WBC 10.8 k/uL (3.8-10.6)
[2022-10-17 10:10] LABS: ALT 27 U/L (4-34); AST 20 U/L (14-36); African American GFR (CKD) 83 (>60 ml/min/1.73 sqM); Albumin 4.7 g/dL (3.5-5.0); Albumin/Globulin Ratio 1.5; Alkaline Phosphatase 76 U/L (38-126); Anion Gap 10 mmol/L; Blood Urea Nitrogen 34 mg/dL (7-17); Calcium 9.3 mg/dL (8.4-10.2); Carbon Dioxide 26 mmol/L (22-30); Chloride 105 mmol/L (98-107); Globulin 3.1 g/dL; Glucose 167 mg/dL (74-99); Non-African American GFR(CKD) 72 (>60 ml/min/1.73 sqM); Sodium 141 mmol/L (137-145); Total Bilirubin 0.4 mg/dL (0.2-1.3); Total Protein 7.8 g/dL (6.3-8.2)
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
[2022-10-17] MEDS: traZODone HCL 50 MG TAB PO SCH (20:24)
[2022-10-17] MEDS: PRAZOSIN 1 MG CAP PO SCH (20:24)
[2022-10-18] MEDS: LORazepam 2 MG/ML INJ IV PRN ×2 (00:25→07:52)
[2022-10-18] MEDS: LEVOTHYROXINE 75 MCG TAB PO SCH (06:14)
[2022-10-18] MEDS: MORPHINE SULFATE 4 MG/ML SYRINGE IV PRN ×2 (06:15→11:21)
[2022-10-18] MEDS: ENOXAPARIN 40 MG/0.4 ML SYRINGE SQ SCH (07:52)
[2022-10-18] MEDS: PANTOPRAZOLE 40 MG TABLET PO SCH ×2 (07:52→22:00)
[2022-10-18] MEDS: NICOTINE 21MG/24HR PATCH TRANSDERM SCH (07:52)
[2022-10-18] MEDS: BENZONATATE 100 MG CAP PO SCH ×3 (07:52→22:00)
[2022-10-18] MEDS: SERTRALINE 50 MG TAB PO SCH (07:52)
[2022-10-18] MEDS: METOPROLOL TARTRATE 25 MG TAB PO SCH ×2 (07:52→22:00)
[2022-10-18] MEDS: THIAMINE 100 MG TAB PO SCH (07:52)
[2022-10-18] MEDS: FUROSEMIDE 10 MG/ML 2 ML VIAL IV SCH ×2 (07:53→22:00)
[2022-10-18] MEDS: methylPREDNISolone SOD SUCCI 40 MG/ML 1 ML VIAL IV SCH ×2 (07:53→16:55)
[2022-10-18] MEDS: DILTIAZEM CD 180 MG CAP.ER.24H PO SCH (07:53)
[2022-10-18] MEDS: IPRATROPIUM-ALBUTEROL 3 ML NEB INHALATION SCH ×4 (08:41→21:17)
[2022-10-18 09:55] VITALS: BMI 34.4
[2022-10-18] MEDS: LORazepam 0.5 MG TAB PO PRN ×2 (12:40→18:28)
[2022-10-18] MEDS: traMADol 50 MG TAB PO PRN ×2 (12:40→18:28)
[2022-10-18] MEDS: GABAPENTIN 300 MG CAP PO PRN (16:55)
[2022-10-18] MEDS: traZODone HCL 50 MG TAB PO SCH (21:59)
--- NOTE | 2022-10-18 22:26 | PN ---
PROGRESS NOTE Hopefully, we will find her a place, so she can go home soon. OBJECTIVE: CARDIOVASCULAR: S1, S2. LUNGS: Clear. GI: Soft. NEUROLOGIC: Mild tremor. PSYCH: Fair mood and affect. ASSESSMENT: Continue her current treatments. Follow up as an outpatient. Hopefully, she can be discharged home soon. She is much better. TERESA / LILY: [id number] /
[2022-10-18] MEDS: PRAZOSIN 1 MG CAP PO SCH (22:38)
[2022-10-19] MEDS: methylPREDNISolone SOD SUCCI 40 MG/ML 1 ML VIAL IV SCH ×2 (00:30→08:41)
[2022-10-19] MEDS: traMADol 50 MG TAB PO PRN ×5 (00:33→23:33)
[2022-10-19] MEDS: LORazepam 0.5 MG TAB PO PRN ×4 (00:33→17:27)
[2022-10-19] MEDS: LEVOTHYROXINE 75 MCG TAB PO SCH (05:51)
[2022-10-19] MEDS: SERTRALINE 50 MG TAB PO SCH (08:40)
[2022-10-19] MEDS: BENZONATATE 100 MG CAP PO SCH ×3 (08:41→21:06)
[2022-10-19] MEDS: THIAMINE 100 MG TAB PO SCH (08:41)
[2022-10-19] MEDS: NICOTINE 21MG/24HR PATCH TRANSDERM SCH (08:41)
[2022-10-19] MEDS: ENOXAPARIN 40 MG/0.4 ML SYRINGE SQ SCH (08:41)
[2022-10-19] MEDS: DILTIAZEM CD 180 MG CAP.ER.24H PO SCH (08:41)
[2022-10-19] MEDS: FUROSEMIDE 10 MG/ML 2 ML VIAL IV SCH (08:41)
[2022-10-19] MEDS: METOPROLOL TARTRATE 25 MG TAB PO SCH ×2 (08:41→21:06)
[2022-10-19] MEDS: PANTOPRAZOLE 40 MG TABLET PO SCH ×2 (08:41→21:06)
[2022-10-19] MEDS: GABAPENTIN 300 MG CAP PO PRN ×2 (09:33→17:27)
[2022-10-19] MEDS: IPRATROPIUM-ALBUTEROL 3 ML NEB INHALATION SCH ×4 (09:47→20:03)
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
[2022-10-19 10:21] LABS: Basophils # (A) 0.01 X 10*3/uL (0.00-0.10); Basophils % (A) 0.1 %; Eosinophils # (A) 0 X 10*3/uL (0.04-0.35); Eosinophils % (A) 0 %; HCT 34.8 % (37.2-46.3); HGB 10.3 g/dL (12.0-15.0); Immature Grans, Automated 0.4 %; Lymphocytes # (A) 0.78 X 10*3/uL (0.90-5.00); Lymphocytes % (A) 7.5 %; MCH 28.9 pg (27.0-32.0); MCHC 29.6 g/dL (32.0-37.0); MCV 97.8 fL (80.0-97.0); Mean Platelet Volume 10.4 fL (9.5-12.2); Monocytes # (A) 0.42 X 10*3/uL (0.20-1.00); NRBC Per 100 WBC 0 /100 WBCS (0.0-0.0); Neutrophils # (A) 9.16 X 10*3/uL (1.80-7.70); Platelet Count 316 X 10*3/uL (140-440); RBC 3.56 X 10*6/uL (4.10-5.20); RDW 19.6 % (11.5-14.5); WBC 10.41 X 10*3/uL (4.50-10.00)
[2022-10-19 10:35] LABS: African American GFR (CKD) 86.6 (60.0-200.0); Albumin 4.6 g/dL (3.8-4.9); Anion Gap 14.6 mmol/L (10.00-18.00); BUN/Creat Ratio 35.35 Ratio (12.00-20.00); Blood Urea Nitrogen 32.7 mg/dL (9.0-27.0); Calcium 9.5 mg/dL (8.7-10.3); Carbon Dioxide 22.7 mmol/L (20.0-27.5); Globulin 2.3 g/dL (1.6-3.3); Non-African American GFR(CKD) 74.7 (60.0-200.0); Potassium 4.3 mmol/L (3.5-5.5); Total Bilirubin 0.3 mg/dL (0.30-1.20); Total Protein 6.8 g/dL (6.2-8.2)
--- NOTE | 2022-10-19 12:53 | CA ---
Transthoracic Echo Report Name: Mechelle Bang Age: 47 Gender: F : 1975 Exam Date: 10/19/2022 08:20 Exam Location: [place] [facility] Ht (in): 67 Wt (lb): 220 Ordering Physician: Josef Carlson MD Attending/Referring Phys: Design Engineer [employer] Lima Perez RDCS Procedure CPT: Indications: Alcohol intoxication Cardiac Hx: Technical Quality: Contrast 1: Total Dose (mL): Contrast 2: Total Dose (mL): MEASUREMENTS (Male / Female) Normal Values 2D ECHO LV Diastolic Diameter PLAX 4.8 cm 4.2 - 5.9 / 3.9 - 5.3 cm LV Systolic Diameter PLAX 3.2 cm IVS Diastolic Thickness 1.2 cm 0.6 - 1.0 / 0.6 - 0.9 cm LVPW Diastolic Thickness 1.4 cm 0.6 - 1.0 / 0.6 - 0.9 cm LV Relative Wall Thickness 0.5 RV Internal Dim ED PLAX 2.7 cm LA Systolic Diameter LX 3.5 cm 3.0 - 4.0 / 2.7 - 3.8 cm M-MODE Aortic Root Diameter MM 2.9 cm LA Systolic Diameter MM 3.9 cm LA Ao Ratio MM 1.3 MV E Point Septal Separation 0.1 cm AV Cusp Separation MM 1.7 cm DOPPLER MV Area PHT 2.6 cm??? Mitral E Point Velocity 39.3 cm/s Mitral A Point Velocity 39.7 cm/s Mitral E to A Ratio 1.0 MV Deceleration Time 288.0 ms MV E' Velocity 5.4 cm/s Mitral E to MV E' Ratio 7.2 FINDINGS Left Ventricle Mildly increased septal wall thickness. Left ventricular ejection fraction is estimated a55 %. Right Ventricle Normal right ventricular size and function. Right ventricular systolic pressure within normal limits. Right Atrium Normal right atrial size. Left Atrium Normal left atrial size. Mitral Valve Structurally normal mitral valve. Mild mitral regurgitation. Aortic Valve Trileaflet aortic valve. Tricuspid Valve Structurally normal tricuspid valve. Trace to mild tricuspid regurgitation. Pulmonic Valve Structurally normal pulmonic valve. Pericardium Normal pericardium. Aorta Normal size aortic root and proximal ascending aorta. CONCLUSIONS Normal LV size and systolic function Previewed by: Dr. Manuel Atkins MD (Electronically Signed) Final Date: 19 October 2022 12:52
[2022-10-19] MEDS: PRAZOSIN 1 MG CAP PO SCH (21:06)
[2022-10-19] MEDS: traZODone HCL 50 MG TAB PO SCH (21:06)
--- NOTE | 2022-10-20 02:25 | PN ---
PROGRESS NOTE SUBJECTIVE: A 47-year-old white female, came in for asthma and COPD exacerbation, possible tracheobronchitis and alcohol withdrawal. She is waiting for rehab placement. We stopped her Solu-Medrol IV given to her orally. Continue medications as given above, mild Lasix. She had an echo. Echo was read as ejection fraction 55%. Normal size and systolic function. The patient stabilized with diuretic, hypertension medications, tracheobronchitis med. She will go home to rehab center once social work gets a place to go. MMODL / IJN: [id number] /
[2022-10-20] MEDS: LEVOTHYROXINE 75 MCG TAB PO SCH (05:25)
[2022-10-20] MEDS: traMADol 50 MG TAB PO PRN ×3 (05:28→17:34)
[2022-10-20] MEDS: LORazepam 0.5 MG TAB PO PRN ×3 (05:28→17:34)
[2022-10-20] MEDS: GABAPENTIN 300 MG CAP PO PRN ×3 (05:28→17:34)
[2022-10-20] MEDS ORDERED: FUROSEMIDE 20 MG TAB PO SCH (09:00)
[2022-10-20] MEDS: IPRATROPIUM-ALBUTEROL 3 ML NEB INHALATION SCH ×3 (09:06→16:21)
[2022-10-20] MEDS: NICOTINE 21MG/24HR PATCH TRANSDERM SCH (10:46)
[2022-10-20] MEDS: BENZONATATE 100 MG CAP PO SCH ×2 (10:47→16:31)
[2022-10-20] MEDS: PANTOPRAZOLE 40 MG TABLET PO SCH (10:48)
[2022-10-20] MEDS: THIAMINE 100 MG TAB PO SCH (10:48)
[2022-10-20] MEDS: SERTRALINE 50 MG TAB PO SCH (10:48)
[2022-10-20] MEDS: DILTIAZEM CD 180 MG CAP.ER.24H PO SCH (10:48)
[2022-10-20] MEDS: METOPROLOL TARTRATE 25 MG TAB PO SCH (10:48)
[2022-10-20] MEDS ORDERED: lamoTRIgine 100 MG TAB PO SCH (13:15)
[2022-10-20 15:29] VITALS: BP 125/82; PULSE 72; RESP 16; TEMP 98
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
--- NOTE | 2022-10-22 22:46 | PN ---
PROGRESS NOTE ADDENDUM: Esophagitis and duodenitis. MMODL / IJN: [id number] /
== END 2022-10-20 17:47 | disposition home or self-care (01) | DRG 391 ==
LOC: EC 22:58 → 6NMEDSUR 10-12 01:48 → OBSVTOIN 10-12 10:16 → 4SSUR 10-12 10:23
PROVIDERS: ADMIT Family Medicine; ATTEND Family Medicine
PROC: 0DB78ZX Excision of Stomach, Pylorus, Via Natural or Artificial Opening Endoscopic, Diagnostic (ICD-10-PCS; principal; 2022-10-14 13:10)
DX: K29.80 Duodenitis without bleeding (principal); G93.41 Metabolic encephalopathy; J44.1 Chronic obstructive pulmonary disease with (acute) exacerbation; J45.901 Unspecified asthma with (acute) exacerbation; F10.231 Alcohol dependence with withdrawal delirium; F10.229 Alcohol dependence with intoxication, unspecified; K70.30 Alcoholic cirrhosis of liver without ascites; D50.9 Iron deficiency anemia, unspecified; E66.9 Obesity, unspecified; K76.0 Fatty (change of) liver, not elsewhere classified; K70.9 Alcoholic liver disease, unspecified; K20.90 Esophagitis, unspecified without bleeding; K64.8 Other hemorrhoids; I10 Essential (primary) hypertension; G89.29 Other chronic pain; M54.9 Dorsalgia, unspecified; Y90.8 Blood alcohol level of 240 mg/100 ml or more; S63.601A Unspecified sprain of right thumb, initial encounter; F32.A Depression, unspecified; F41.9 Anxiety disorder, unspecified; G47.30 Sleep apnea, unspecified; M19.90 Unspecified osteoarthritis, unspecified site; Z68.34 Body mass index [BMI] 34.0-34.9, adult; Z86.711 Personal history of pulmonary embolism; Z79.01 Long term (current) use of anticoagulants; Z79.890 Hormone replacement therapy; Z79.899 Other long term (current) drug therapy; Z87.891 Personal history of nicotine dependence; Z86.19 Personal history of other infectious and parasitic diseases; Z71.3 Dietary counseling and surveillance; Z88.0 Allergy status to penicillin; W51.XXXA Accidental striking against or bumped into by another person, initial encounter; Y92.009 Unspecified place in unspecified non-institutional (private) residence as the place of occurrence of the external cause
CPT/HCPCS: 36415; 43239; 70450; 71045; 71046; 71275; 76700; 80048; 80053; 80306; 80320; 81001; 81025; 82272; 82728; 83540; 83550; 83690; 83735; 83880; 84100; 84145; 84484; 85025; 85379; 85610; 85730; 88305; 93005; 93306; 94640; 96361; 96374; 96375; 96376; 99285

== ENCOUNTER 2023-01-25 05:50 | Emergency (ER) | payer OTHER ==
[2023-01-25 06:04] VITALS: TEMP 98.4
[2023-01-25] MEDS ORDERED: SODIUM CHLORIDE 0.9% 1,000 ML IV STA (06:29)
--- NOTE | 2023-01-25 06:34 | ED ---
GI Bleed HPI - General Chief complaint: GI Bleed Stated complaint: GI Bleed Time Seen by Provider: 01/25/23 06:12 Source: patient, EMS, RN notes reviewed Mode of arrival: EMS Limitations: no limitations - History of Present Illness Initial comments: 47-year-old female presents emergency Department chief complaint rectal bleeding, generalized not feeling well. She states she's been sick last couple weeks with cold like symptoms she states she is productive cough, sore throat reported fever. Patient states this morning she "bowel movement which she was straining no some bright red blood. Patient is closed. Patient has not taken her blood pressure medication this morning his blood pressure is elevated. She denies any nausea vomiting. Patient states she had a colonoscopy 2 years ago. - Related Data Home Medications Medication Instructions Recorded Confirmed Metoprolol Tartrate [Lopressor] 25 mg PO BID 02/16/22 01/25/23 Ferrous Sulfate [Iron (65 MG 325 mg PO DAILY 04/04/22 01/25/23 Elemental)] Sertraline [Zoloft] 50 mg PO DAILY 01/25/23 01/25/23 Sertraline [Zoloft] 100 mg PO DAILY 01/25/23 01/25/23 traMADol HCL 50 mg PO TID 01/25/23 01/25/23 traZODone HCL 150 mg PO HS 01/25/23 01/25/23 Previous Rx's Medication Instructions Recorded Diltiazem Cd [Cardizem CD] 180 mg PO DAILY 30 Days 09/03/21 Furosemide [Lasix] 20 mg PO DAILY 30 Days #30 tab 10/20/22 Azithromycin [Zithromax Z Pack] 0 tab PO DIRECTED #6 tab 01/25/23 Hydrocortisone/Pramoxine 1 applic RECTAL BID #10 gm 01/25/23 [Proctofoam-Hc 1%-1% Foam] Allergies Allergy/AdvReac Type Severity Reaction Status Date / Time Penicillins Allergy Unknown Verified 01/25/23 07:28 Childhood Review of Systems ROS Statement: Those systems with pertinent positive or pertinent negative responses have been documented in the HPI. ROS Other: All systems not noted in ROS Statement are negative. Past Medical History Past Medical History: Hypertension, Pulmonary Embolus (PE), Thyroid Disorder Additional Past Medical History / Comment(s): Pt states she has an arrythmia, pancreatitis and chronic back pain. Herniated Disk. pancreatitis History of Any Multi-Drug Resistant Organisms: CRE, Other MDRO Date of last positivie culture/infection: 07/16/21 MDRO Source:: URINE Past Surgical History: Appendectomy, Orthopedic Surgery Additional Past Surgical History / Comment(s): titanium wrist right, abdominal exploratory open appy, left elbow pin from falling out of tree Past Anesthesia/Blood Transfusion Reactions: No Reported Reaction Past Psychological History: Anxiety, Depression, PTSD Smoking Status: Former smoker Past Alcohol Use History: Heavy - Past Family History Father History Unknown: Yes Family Medical History: Osteoarthritis (OA) General Exam Limitations: no limitations General appearance: alert, in no apparent distress Head exam: Present: atraumatic, normocephalic, normal inspection Eye exam: Present: normal appearance, PERRL, EOMI. Absent: scleral icterus, conjunctival injection, periorbital swelling ENT exam: Present: normal exam, normal oropharynx, mucous membranes moist Neck exam: Present: normal inspection, full ROM. Absent: tenderness, meningismus, lymphadenopathy Respiratory exam: Present: normal lung sounds bilaterally. Absent: respiratory distress, wheezes, rales, rhonchi, stridor Cardiovascular Exam: Present: regular rate, normal rhythm, normal heart sounds. Absent: systolic murmur, diastolic murmur, rubs, gallop, clicks GI/Abdominal exam: Present: soft, normal bowel sounds. Absent: distended, tenderness, guarding, rebound, rigid Neurological exam: Present: alert Skin exam: Present: warm, dry, intact, normal color. Absent: rash Course Vital Signs 01/25/23 01/25/23 05:57 08:51 Temperature 98.4 F Pulse Rate 100 87 Respiratory 16 17 Rate Blood Pressure 152/114 143/98 O2 Sat by Pulse 98 96 Oximetry Medical Decision Making - Medical Decision Making Was pt. sent in by a medical professional or institution (, PA, FACILITIES SPECIALIST, urgent care, hospital, or [facility]...) When possible be specific @ -No Did you speak to anyone other than the patient for history (EMS, parent, family, police, friend...)? What history was obtained from this source @ -No Did you review nursing and triage notes (agree or disagree)? Why? @ -I reviewed and agree with nursing and triage notes Were old charts reviewed (outside hosp., previous admission, EMS record, old EKG, old radiological studies, urgent care reports/EKG's, [facility] records)? Report findings @ -No old charts were reviewed Differential Diagnosis (chest pain, altered mental status, abdominal pain women, abdominal pain men, vaginal bleeding, weakness, fever, dyspnea, syncope, headache, dizziness, GI bleed, back pain, seizure, CVA, palpatations, mental health, musculoskeletal)? @ -nDifferential GI Bleed: Esophageal varices, aortoenteric fistula, Opal-Prince, gastritis, peptic ulcer disease, diverticulosis, inflammatory bowel disease, hemorrhoids, fissure, colitis, malignancy, Meckels diverticulum, this is not meant to be an all- inclusive list.ble EKG interpreted by me (3pts min.). @ -[None X-rays interpreted by me (1pt min.). @ -Chest x-ray shows no acute process CT interpreted by me (1pt min.). @ -None done U/S interpreted by me (1pt. min.). @ -None done What testing was considered but not performed or refused? (CT, X-rays, U/S, labs)? Why? @ -None What meds were considered but not given or refused? Why? @ -None Did you discuss the management of the patient with other professionals (professionals i.e. , PA, FACILITIES SPECIALIST, lab, RT, psych nurse, social work supervisor, collective bargaining specialist, teacher, philanthropy officer, special education case manager)? Give summary @ -No Was smoking cessation discussed for >3mins.? @ -No Was critical care preformed (if so, how long)? @ -No Were there social determinants of health that impacted care today? How? (Homelessness, low income, unemployed, alcoholism, drug addiction, transportation, low edu. Level, literacy, decrease access to med. care, [facility], rehab)? @ -No Was there de-escalation of care discussed even if they declined (Discuss DNR or withdrawal of care, Hospice)? DNR status @ -No What co-morbidities impacted this encounter? (DM, HTN, Smoking, COPD, CAD, Cancer, CVA, ARF, Chemo, Hep., AIDS, mental health diagnosis, sleep apnea, morbid obesity)? @ -None Was patient admitted / discharged? Hospital course, mention meds given and r oute, prescriptions, significant lab abnormalities, going to OR and other pertinent info. @ -[Discharge patient's laboratory studies are unremarkable hemoglobin is stable, improved from prior patient has no active bleeding now. Patient symptoms may related to hemorrhoid issues straining. Patient does have URI has been persistent for 2 weeks was given antibiotics. Patient did have mild alcohol intoxication though for her baseline she is clinically sober she is walking talking awake and alert Undiagnosed new problem with uncertain prognosis? @ -No Drug Therapy requiring intensive monitoring for toxicity (Heparin, Nitro, Insulin, Cardizem)? @ -No Were any procedures done? @ -No Diagnosis/symptom? @ -Hemorrhoids Acute, or Chronic, or Acute on Chronic? @ -Acute Uncomplicated (without systemic symptoms) or Complicated (systemic symptoms)? @ -Uncomplicated Side effects of treatment? @ -No Exacerbation, Progression, or Severe Exacerbation? @ -No Poses a threat to life or bodily function? How? (Chest pain, [place], [place], pneumonia, PE, COPD, DKA, ARF, appy, cholecystitis, CVA, Diverticulitis, Homicidal, Suicidal, threat to staff... and all critical care pts) @ -No - Lab Data Result diagrams: 01/25/23 06:49 01/25/23 06:49 Lab Results 01/25/23 01/25/23 01/25/23 Range/Units 06:49 06:49 06:49 WBC 4.1 (3.8-10.6) k/uL RBC 3.55 L (3.80-5.40) m/uL Hgb 11.0 L (11.4-16.0) gm/dL Hct 33.0 L (34.0-46.0) % MCV 92.9 (80.0-100.0) fL MCH 31.0 (25.0-35.0) pg MCHC 33.4 (31.0-37.0) g/dL RDW 16.8 H (11.5-15.5) % Plt Count 127 L (150-450) k/uL MPV 7.7 Neutrophils % 75 % Lymphocytes % 17 % Monocytes % 4 % Eosinophils % 1 % Basophils % 1 % Neutrophils # 3.1 (1.3-7.7) k/uL Lymphocytes # 0.7 L (1.0-4.8) k/uL Monocytes # 0.2 (0-1.0) k/uL Eosinophils # 0.1 (0-0.7) k/uL Basophils # 0.0 (0-0.2) k/uL Anisocytosis Slight PT 9.7 (9.0-12.0) sec INR 0.9 (<1.2) APTT 22.4 (22.0-30.0) sec Sodium 141 (137-145) mmol/L Potassium 4.1 (3.5-5.1) mmol/L Chloride 105 (98-107) mmol/L Carbon Dioxide 27 (22-30) mmol/L Anion Gap 9 mmol/L BUN 10 (7-17) mg/dL Creatinine 0.82 (0.52-1.04) mg/dL Est GFR (CKD-EPI)AfAm >90 (>60 ml/min/1.73 sqM) Est GFR (CKD-EPI)NonAf 87 (>60 ml/min/1.73 sqM) Glucose 104 H (74-99) mg/dL Plasma Lactic Acid [place] (0.7-2.0) mmol/L Calcium 8.3 L (8.4-10.2) mg/dL Magnesium 2.1 (1.6-2.3) mg/dL Total Bilirubin 0.5 (0.2-1.3) mg/dL AST 114 H (14-36) U/L ALT 52 H (4-34) U/L Alkaline Phosphatase 126 (38-126) U/L Total Protein 7.2 (6.3-8.2) g/dL Albumin 4.3 (3.5-5.0) g/dL Serum Alcohol 268 H* mg/dL Influenza Type A (PCR) (Not Detectd) Influenza Type B (PCR) (Not Detectd) RSV (PCR) (Not Detectd) SARS-CoV-2 (PCR) (Not Detectd) 01/25/23 01/25/23 Range/Units 06:49 06:49 WBC (3.8-10.6) k/uL RBC (3.80-5.40) m/uL Hgb (11.4-16.0) gm/dL Hct (34.0-46.0) % MCV (80.0-100.0) fL MCH (25.0-35.0) pg MCHC (31.0-37.0) g/dL RDW (11.5-15.5) % Plt Count (150-450) k/uL MPV Neutrophils % % Lymphocytes % % Monocytes % % Eosinophils % % Basophils % % Neutrophils # (1.3-7.7) k/uL Lymphocytes # (1.0-4.8) k/uL Monocytes # (0-1.0) k/uL Eosinophils # (0-0.7) k/uL Basophils # (0-0.2) k/uL Anisocytosis PT (9.0-12.0) sec INR (<1.2) APTT (22.0-30.0) sec Sodium (137-145) mmol/L Potassium (3.5-5.1) mmol/L Chloride (98-107) mmol/L Carbon Dioxide (22-30) mmol/L Anion Gap mmol/L BUN (7-17) mg/dL Creatinine (0.52-1.04) mg/dL Est GFR (CKD-EPI)AfAm (>60 ml/min/1.73 sqM) Est GFR (CKD-EPI)NonAf (>60 ml/min/1.73 sqM) Glucose (74-99) mg/dL Plasma Lactic Acid [place] 1.0 (0.7-2.0) mmol/L Calcium (8.4-10.2) mg/dL Magnesium (1.6-2.3) mg/dL Total Bilirubin (0.2-1.3) mg/dL AST (14-36) U/L ALT (4-34) U/L Alkaline Phosphatase (38-126) U/L Total Protein (6.3-8.2) g/dL Albumin (3.5-5.0) g/dL Serum Alcohol mg/dL Influenza Type A (PCR) Not Detected (Not Detectd) Influenza Type B (PCR) Not Detected (Not Detectd) RSV (PCR) Not Detected (Not Detectd) SARS-CoV-2 (PCR) Not Detected (Not Detectd) Disposition Clinical Impression: Hemorrhoids, URI (upper respiratory infection) Disposition: HOME SELF-CARE Condition: Stable Instructions (If sedation given, give patient instructions): Gastrointestinal Bleeding (ED) Additional Instructions: Please return to the Emergency Department if symptoms worsen or any other concerns. Prescriptions: Hydrocortisone/Pramoxine [Proctofoam-Hc 1%-1% Foam] 1 applic RECTAL BID #10 gm Azithromycin [Zithromax Z Pack] 0 tab PO DIRECTED #6 tab Is patient prescribed a controlled substance at d/c from ED?: No Referrals: Josef Carlson MD [Primary Care Provider] - 1-2 days Time of Disposition: 08:44
[2023-01-25] MEDS ORDERED: METOPROLOL TARTRATE 25 MG TAB PO STA (06:35)
[2023-01-25] MEDS ORDERED: DILTIAZEM CD 180 MG CAP.ER.24H PO STA (06:35)
[2023-01-25 07:10] LABS: Anisocytosis Slight; Basophils % (A) 1 %; Eosinophils # (A) 0.1 k/uL (0-0.7); Eosinophils % (A) 1 %; Lymphocytes # (A) 0.7 k/uL (1.0-4.8); Lymphocytes % (A) 17 %; MCHC 33.4 g/dL (31.0-37.0); MCV 92.9 fL (80.0-100.0); Mean Platelet Volume 7.7; Monocytes # (A) 0.2 k/uL (0-1.0); Monocytes % (A) 4 %; Neutrophils # (A) 3.1 k/uL (1.3-7.7); Neutrophils % (A) 75 %; Platelet Count 127 k/uL (150-450); RBC 3.55 m/uL (3.80-5.40); RDW 16.8 % (11.5-15.5); WBC 4.1 k/uL (3.8-10.6)
[2023-01-25 07:14] LABS: INR 0.9 (<1.2); Partial Thromboplastin Time 22.4 sec (22.0-30.0); Prothrombin Time 9.7 sec (9.0-12.0)
[2023-01-25 07:19] LABS: ALT 52 U/L (4-34); AST 114 U/L (14-36); African American GFR (CKD) >90 (>60 ml/min/1.73 sqM); Albumin 4.3 g/dL (3.5-5.0); Alkaline Phosphatase 126 U/L (38-126); Anion Gap 9 mmol/L; Blood Urea Nitrogen 10 mg/dL (7-17); Calcium 8.3 mg/dL (8.4-10.2); Carbon Dioxide 27 mmol/L (22-30); Chloride 105 mmol/L (98-107); Glucose 104 mg/dL (74-99); Magnesium 2.1 mg/dL (1.6-2.3); Non-African American GFR(CKD) 87 (>60 ml/min/1.73 sqM); Potassium 4.1 mmol/L (3.5-5.1); Sodium 141 mmol/L (137-145); Total Bilirubin 0.5 mg/dL (0.2-1.3); Total Protein 7.2 g/dL (6.3-8.2)
--- NOTE | 2023-01-25 07:24 | XR ---
EXAMINATION TYPE: XR chest 2V DATE OF EXAM: 01/25/2023 COMPARISON: CTA chest October 14, 2022 HISTORY: Left sided chest pain and persistent cough. TECHNIQUE: Frontal and lateral views of the chest are obtained. FINDINGS: There is no focal air space opacity, pleural effusion, or pneumothorax seen. The cardiac silhouette size is stable and within normal limits. The osseous structures are intact. IMPRESSION: No acute process. No significant change from recent CT.
--- NOTE | 2023-01-25 07:25 | XR ---
EXAMINATION TYPE: XR KUB DATE OF EXAM: 01/25/2023 7:19 AM CLINICAL HISTORY: Pain with nausea and vomiting and bloody stool. TECHNIQUE: Two Upright KUB images of the abdomen are obtained. COMPARISON: CT abdomen and pelvis February 16, 2022. FINDINGS: Gas is seen in nondistended stomach. Scattered gas is seen in non-distended small bowel loo ps. Gas and fecal material is seen in non-distended colon. There is no visceromegaly, pneumoperitoneu m, or abnormal calcification appreciated. The lung bases are clear and the osseous structures are int act. IMPRESSION: Overall nonobstructive bowel gas pattern is redemonstrated.
[2023-01-25 07:30] LABS: Alcohol 268 mg/dL
[2023-01-25] MEDS ORDERED: MORPHINE SULFATE 2 MG/ML SYRINGE IVP ONE (07:45)
[2023-01-25 08:54] VITALS: BP 143/98; PULSE 87; RESP 17
== END 2023-01-25 09:04 | disposition home or self-care (01) ==
LOC: EC 05:50
DX: K64.9 Unspecified hemorrhoids (principal); J06.9 Acute upper respiratory infection, unspecified; I10 Essential (primary) hypertension; Z86.711 Personal history of pulmonary embolism; F41.9 Anxiety disorder, unspecified; F32.A Depression, unspecified; Z87.891 Personal history of nicotine dependence; Z79.899 Other long term (current) drug therapy; Z88.0 Allergy status to penicillin; Z20.822 Contact with and (suspected) exposure to COVID-19
CPT/HCPCS: 36415; 80053; 83605; 83735; 85025; 85610; 85730; 80320; 87636; 71046; 74018; 99285; 96374; 96361 ×2; J2270

== ENCOUNTER 2024-01-13 11:46 | Inpatient (IN) | payer OTHER ==
--- NOTE | 2024-01-13 12:15 | ED ---
SOB HPI - General Chief Complaint: Shortness of Breath Stated Complaint: Chest pain, SOB, cough Time Seen by Provider: 01/13/24 12:14 Source: patient, RN notes reviewed Mode of arrival: ambulatory Limitations: no limitations - History of Present Illness Initial Comments: Patient is a 48-year-old female presented to ER with a chief complaint of shortness of breath. Patient has a past medical history significant of protein S deficiency. She also reports she has a history of atrial fibrillation. She is not currently taking a diuretic or blood thinner as she has not followed up with PCP since her dad in March 2023. She states for the past 2 weeks she has been having abdominal pain and swelling in bilateral extremities. She also was endorsing chills, shortness of breath, chest pain, decreased appetite, cough, congestion. She states she has not been able to urinate and her abdomen appears more distended than normal. She does report that she had a emergency appendectomy years ago. She states she also been having a decreased appetite and abnormal bowel movements. - Related Data Home Medications Medication Instructions Recorded Confirmed Metoprolol Tartrate [Lopressor] 25 mg PO BID 02/16/22 01/25/23 Ferrous Sulfate [Iron (65 MG 325 mg PO DAILY 04/04/22 01/25/23 Elemental)] Sertraline [Zoloft] 50 mg PO DAILY 01/25/23 01/25/23 Sertraline [Zoloft] 100 mg PO DAILY 01/25/23 01/25/23 traMADol HCL 50 mg PO TID 01/25/23 01/25/23 traZODone HCL 150 mg PO HS 01/25/23 01/25/23 Previous Rx's Medication Instructions Recorded Diltiazem Cd [Cardizem CD] 180 mg PO DAILY 30 Days 09/03/21 Furosemide [Lasix] 20 mg PO DAILY 30 Days #30 tab 10/20/22 Azithromycin [Zithromax Z Pack] 0 tab PO DIRECTED #6 tab 01/25/23 Hydrocortisone/Pramoxine 1 applic RECTAL BID #10 gm 01/25/23 [Proctofoam-Hc 1%-1% Foam] Allergies Allergy/AdvReac Type Severity Reaction Status Date / Time Penicillins Allergy Unknown Verified 01/25/23 07:28 Childhood Review of Systems ROS Statement: Those systems with pertinent positive or pertinent negative responses have been documented in the HPI. ROS Other: All systems not noted in ROS Statement are negative. Past Medical History Past Medical History: Hypertension, Pulmonary Embolus (PE), Thyroid Disorder Additional Past Medical History / Comment(s): Pt states she has an arrythmia, pancreatitis and chronic back pain. Herniated Disk. pancreatitis History of Any Multi-Drug Resistant Organisms: CRE, Other MDRO Date of last positivie culture/infection: 07/16/21 MDRO Source:: URINE Past Surgical History: Appendectomy, Orthopedic Surgery Additional Past Surgical History / Comment(s): titanium wrist right, abdominal exploratory open appy, left elbow pin from falling out of tree Past Anesthesia/Blood Transfusion Reactions: No Reported Reaction Past Psychological History: Anxiety, Depression, PTSD Smoking Status: Former smoker Past Alcohol Use History: Heavy - Past Family History Father History Unknown: Yes Family Medical History: Osteoarthritis (OA) General Exam Limitations: no limitations Course Vital Signs 01/13/24 01/13/24 11:50 12:55 Temperature 98.5 F Pulse Rate 110 H Respiratory 26 H 18 Rate Blood Pressure 173/92 O2 Sat by Pulse 95 Oximetry - Reevaluation(s) Reevaluation #1: 01/13/24 14:[address] Carlson who accepts [facility] admission. Medical Decision Making - Medical Decision Making Was pt. sent in by a medical professional or institution (, PA, INSOLE TACKER, urgent care, hospital, or longterm...) When possible be specific @ -No Did you speak to anyone other than the patient for history (EMS, parent, family, police, friend...)? What history was obtained from this source @ -No Did you review nursing and triage notes (agree or disagree)? Why? @ -I reviewed and agree with nursing and triage notes Were old charts reviewed (outside hosp., previous admission, EMS record, old EKG, old radiological studies, urgent care reports/EKG's, longterm records)? Report findings @ -No old charts were reviewed Differential Diagnosis (chest pain, altered mental status, abdominal pain women, abdominal pain men, vaginal bleeding, weakness, fever, dyspnea, syncope, headache, dizziness, GI bleed, back pain, seizure, CVA, palpatations, mental health, musculoskeletal)? @ -Differential Dyspnea: Coronary syndrome, arrhythmia, tamponade, asthma, COPD, pulmonary embolism, pneumonia, pneumothorax, pulmonary effusion, anaphylaxis, diabetic ketoacidosis, flailed chest, pulmonary contusion, di aphragmatic rupture, anemia, neuromuscular, this is not meant to be an all- inclusive list. EKG interpreted by me (3pts min.). @ -As above X-rays interpreted by me (1pt min.). @ -Chest x-ray significant for central vascular congestion and tiny small bilateral pleural effusions. Findings consistent with CHF. CT interpreted by me (1pt min.). @ -CT abdomen pelvis significant for mild to moderate diffuse subcutaneous edema over the abdomen and pelvis. There is also a new right paracentral and p eriumbilical hernia containing fat and small portion of transverse colon. CTA negative fro acute PE. Study found to be suboptimal. U/S interpreted by me (1pt. min.). @ -None done What testing was considered but not performed or refused? (CT, X-rays, U/S, labs)? Why? @ -None What meds were considered but not given or refused? Why? @ -None Did you discuss the management of the patient with other professionals (professionals i.e. , PA, INSOLE TACKER, lab, RT, psych nurse, oncology social worker, environmental services worker, teacher, geological technical officer, mattress spring encaser)? Give summary @ -Yes, case discussed with Dr. Carlson who accepted medical admission. Was smoking cessation discussed for >3mins.? @ -No Was critical care preformed (if so, how long)? @ -No Were there social determinants of health that impacted care today? How? (H omelessness, low income, unemployed, alcoholism, drug addiction, transportation, low edu. Level, literacy, decrease access to med. care, nursing home, rehab)? @ -[Patient has not seen primary care physician in over 6 months Was there de-escalation of care discussed even if they declined (Discuss DNR or withdrawal of care, Hospice)? DNR status @ -No What co-morbidities impacted this encounter? (DM, HTN, Smoking, COPD, CAD, Cancer, CVA, ARF, Chemo, Hep., AIDS, mental health diagnosis, sleep apnea, morbi d obesity)? @ -Hypertension, history of pulmonary embolism, thyroid disorder, protein S deficiency, obesity Was patient admitted / discharged? Hospital course, mention meds given and route, prescriptions, significant lab abnormalities, going to OR and other pertinent info. @ -Admitted. Patient is a 48-year-old female presenting to the ER with a chief complaint of shortness of breath. History and physical exam completed vital stable. Patient's oxygen saturation 95% on room air. Patient also was tachycardic at 110. Exam significant for bilateral 2+ pretibial pitting edema. Lung sounds clear to auscultation bilaterally. Patient in no signs of acute distress and nontoxic-appearing. Labs obtained significant for hemoglobin of 10.5, D-dimer 1.45, troponin 0.0 through 8, BNP 1350, AST 129, ALT 64, alk phos 244, potassium 2.9. COVID, influenza, RSV negative. CTA performed due to elev ated D-dimer which was negative for acute pulmonary embolism. Study was also found to be suboptimal. EKG showed normal sinus rhythm with inversion of T waves in the anterior leads. No acute evidence of infarct or ischemia. Chest x-ray significant for central vascular congestion and tiny small bilateral pleural effusions. Findings consistent with CHF. CT abdomen pelvis performed due to abdominal distention and concern for intra-abdominal process. CT abdomen pelvis significant for mild to moderate diffuse subcutaneous edema over the abdomen and pelvis. There is also a new right paracentral and periumbilical hernia containing fat and small portion of transverse colon. Admission conside red due to CHF exacerbation. Case discussed with Dr. Carlson who accepted medical admission. Cardiology on consult. Patient received IV 20 mg Lasix and potassium replacement in the ER. Patient will be admitted for further treatment. Patient in agreement with plan. Undiagnosed new problem with uncertain prognosis? @ -No Drug Therapy requiring intensive monitoring for toxicity (Heparin, Nitro, Insulin, Cardizem)? @ -No Were any procedures done? @ -No Diagnosis/symptom? @ -Congestive heart failure/hypokalemia/elevated troponin/transaminitis Acute, or Chronic, or Acute on Chronic? @ -Acute Uncomplicated (without systemic symptoms) or Complicated (systemic symptoms)? @ -Complicated Side effects of treatment? @ -No Exacerbation, Progression, or Severe Exacerbation? @ -Exacerbation Poses a threat to life or bodily function? How? (Chest pain, [place], [place], pneumonia, PE, COPD, DKA, ARF, appy, cholecystitis, CVA, Diverticulitis, Homicidal, Suicidal, threat to staff... and all critical care pts) @ -Yes, congestive heart failure can lead to fluid overload which can be life-threatening. - Lab Data Result diagrams: 01/13/24 12:19 01/13/24 12:19 Lab Results 01/13/24 01/13/24 01/13/24 Range/Units 12:19 12:19 12:19 WBC 8.7 (3.8-10.6) k/uL RBC 3.11 L (3.80-5.40) m/uL Hgb 10.5 L (11.4-16.0) gm/dL Hct 33.1 L (34.0-46.0) % MCV 106.6 H (80.0-100.0) fL MCH 33.8 (25.0-35.0) pg MCHC 31.7 (31.0-37.0) g/dL RDW 19.0 H (11.5-15.5) % Plt Count 238 (150-450) k/uL MPV 8.5 Hypochromasia Marked Anisocytosis Slight Macrocytosis Marked A PT 10.2 (10.0-12.5) sec INR 0.9 (<1.2) APTT 21.2 L (22.0-30.0) sec D-Dimer 1.45 H (<0.60) mg/L FEU Sodium 137 (137-145) mmol/L Potassium 2.9 L (3.5-5.1) mmol/L Chloride 97 L (98-107) mmol/L Carbon Dioxide 35 H (22-30) mmol/L Anion Gap 5 mmol/L BUN 5 L (7-17) mg/dL Creatinine 0.52 (0.52-1.04) mg/dL Est GFR (CKD-EPI)AfAm >90 (>60 ml/min/1.73 sqM) Est GFR (CKD-EPI)NonAf >90 (>60 ml/min/1.73 sqM) Glucose 108 H (74-99) mg/dL Calcium 8.4 (8.4-10.2) mg/dL Total Bilirubin 1.1 (0.2-1.3) mg/dL AST 129 H (14-36) U/L ALT 64 H (4-34) U/L Alkaline Phosphatase 244 H (38-126) U/L Troponin I (0.000-0.034) ng/mL NT-Pro-B Natriuret Pep 1350 pg/mL Total Protein 6.4 (6.3-8.2) g/dL Albumin 3.5 (3.5-5.0) g/dL Influenza Type A (PCR) (Not Detectd) Influenza Type B (PCR) (Not Detectd) RSV (PCR) (Not Detectd) SARS-CoV-2 (PCR) (Not Detectd) 01/13/24 01/13/24 Range/Units 12:19 12:21 WBC (3.8-10.6) k/uL RBC (3.80-5.40) m/uL Hgb (11.4-16.0) gm/dL Hct (34.0-46.0) % MCV (80.0-100.0) fL MCH (25.0-35.0) pg MCHC (31.0-37.0) g/dL RDW (11.5-15.5) % Plt Count (150-450) k/uL MPV Hypochromasia Anisocytosis Macrocytosis PT (10.0-12.5) sec INR (<1.2) APTT (22.0-30.0) sec D-Dimer (<0.60) mg/L FEU Sodium (137-145) mmol/L Potassium (3.5-5.1) mmol/L Chloride (98-107) mmol/L Carbon Dioxide (22-30) mmol/L Anion Gap mmol/L BUN (7-17) mg/dL Creatinine (0.52-1.04) mg/dL Est GFR (CKD-EPI)AfAm (>60 ml/min/1.73 sqM) Est GFR (CKD-EPI)NonAf (>60 ml/min/1.73 sqM) Glucose (74-99) mg/dL Calcium (8.4-10.2) mg/dL Total Bilirubin (0.2-1.3) mg/dL AST (14-36) U/L ALT (4-34) U/L Alkaline Phosphatase (38-126) U/L Troponin I 0.038 H* (0.000-0.034) ng/mL NT-Pro-B Natriuret Pep pg/mL Total Protein (6.3-8.2) g/dL Albumin (3.5-5.0) g/dL Influenza Type A (PCR) Not Detected (Not Detectd) Influenza Type B (PCR) Not Detected (Not Detectd) RSV (PCR) Not Detected (Not Detectd) SARS-CoV-2 (PCR) Not Detected (Not Detectd) - EKG Data -: EKG Interpreted by Ma EKG Comments: EKG taken at 12: 34 shows a sinus rhythm with inverted T waves in anterior leads. Ventricular rate 95, UT interval 145, QRS duration 94, QT/QTc 389/442. - Radiology Data Radiology results: report reviewed, image reviewed Disposition Clinical Impression: Congestive heart failure, Hypokalemia, Elevated LFTs, Elevated troponin, Obesity (BMI 30-39.9) Disposition: ADMITTED IP TO THIS HOSP Condition: Fair Referrals: Josef Carlson MD [Primary Care Provider] - 1-2 days Time of Disposition: 14:28
[2024-01-13 12:29] LABS: Anisocytosis Slight; HCT 33.1 % (34.0-46.0); HGB 10.5 gm/dL (11.4-16.0); Hypochromasia Marked; MCH 33.8 pg (25.0-35.0); MCHC 31.7 g/dL (31.0-37.0); MCV 106.6 fL (80.0-100.0); Macrocytosis Marked; Mean Platelet Volume 8.5; Platelet Count 238 k/uL (150-450); RBC 3.11 m/uL (3.80-5.40); WBC 8.7 k/uL (3.8-10.6)
[2024-01-13 12:43] LABS: ALT 64 U/L (4-34); AST 129 U/L (14-36); African American GFR (CKD) >90 (>60 ml/min/1.73 sqM); Albumin 3.5 g/dL (3.5-5.0); Alkaline Phosphatase 244 U/L (38-126); Anion Gap 5 mmol/L; Blood Urea Nitrogen 5 mg/dL (7-17); Calcium 8.4 mg/dL (8.4-10.2); Carbon Dioxide 35 mmol/L (22-30); Chloride 97 mmol/L (98-107); Glucose 108 mg/dL (74-99); Non-African American GFR(CKD) >90 (>60 ml/min/1.73 sqM); Potassium 2.9 mmol/L (3.5-5.1); Sodium 137 mmol/L (137-145); Total Bilirubin 1.1 mg/dL (0.2-1.3); Total Protein 6.4 g/dL (6.3-8.2)
[2024-01-13 12:51] LABS: NT-Pro-B-Type Natriuretic Pept 1350 pg/mL
[2024-01-13 12:58] LABS: INR 0.9 (<1.2); Partial Thromboplastin Time 21.2 sec (22.0-30.0); Prothrombin Time 10.2 sec (10.0-12.5)
--- NOTE | 2024-01-13 13:53 | XR ---
EXAMINATION TYPE: XR chest 2V DATE OF EXAM: 01/13/2024 COMPARISON: Chest x-ray January 25, 2023 HISTORY: Dyspnea TECHNIQUE: Frontal and lateral views of the chest are obtained. FINDINGS: There is mild cardiomegaly of mild central vascular congestion on current study. Small to tiny bilateral pleural effusions are seen on lateral view. The osseous structures are intact. IMPRESSION: Findings consistent with CHF exacerbation/fluid overload state are present as detailed a kim and new from most recent prior study.
--- NOTE | 2024-01-13 13:58 | CT ---
EXAMINATION TYPE: CT chest angio for PE DATE OF EXAM: 01/13/2024 COMPARISON: Prior CT chest July 16, 2022 HISTORY: elevated d-dimer, chest pain CT DLP: 4110.7 mGycm. Automated Exposure Control for Dose Reduction was Utilized. CONTRAST: CTA scan of the thorax is performed with IV Contrast, patient injected with 100 mL of Isovue 300, pul monary embolism protocol. MIP Images are created on CT scanner and reviewed. FINDINGS: LUNGS: Mild linear scarring or atelectasis anterior left upper lobe image 32 is now seen. Dependent c onsolidation and/or atelectasis in both lung bases left greater than right is now present. Trace left basilar pleural effusion. No pneumothorax seen bilaterally. MEDIASTINUM: Suboptimal study with most dense contrast in the SVC but no convincing CT evidence for a cute pulmonary embolism. Enlarged main pulmonary artery of 3.5 cm image 56 suggestive of underlying p ulmonary artery hypertension. Prominent but subcentimeter right hilar lymph nodes. No cardiomegaly or pericardial effusion. Some enhancement of the aorta without aneurysm or dissection. OTHER: Multilevel spurring in the thoracic spine is seen. Please refer to same day CT abdomen and pel vis report for complete details on the upper abdomen. IMPRESSION: 1. Suboptimal study without acute pulmonary embolism. 2. Tiny left pleural effusion. Dependent consolidation/atelectasis in both bases, left greater than r ight.
--- NOTE | 2024-01-13 14:03 | CT ---
EXAMINATION TYPE: CT abdomen pelvis w con DATE OF EXAM: 01/13/2024 HISTORY: lower abdominal pain and lower leg swelling x2 months CT DLP: 4110.7mGycm Automated Exposure Control for Dose Reduction was Utilized. CONTRAST: CT scan of the abdomen and pelvis is performed with IV Contrast, patient injected with 100 mL of Isov ue 300. COMPARISON: Prior CT February 16, 2022 FINDINGS: LUNG BASES: Please refer to same day CTA chest report for complete details on the lung bases. LIVER/GB: Liver is diffusely low dense consistent with fatty infiltrative hepatocellular disease. PANCREAS: No significant abnormality is seen. SPLEEN: No significant abnormality is seen. ADRENALS: No significant abnormality is seen. KIDNEYS: Symmetric cortical medullary uptake and excretion without hydronephrosis seen bilaterally. BOWEL: No abnormal small or large bowel dilatation. There is right paracentral hernia containing mes enteric fat along with some free fluid and small portion of transverse colon on axial image 43 with 3 .1 cm neck. UTERUS/ADNEXA: Anteverted uterus. Ovaries are symmetric and within normal limits in size. LYMPH NODES: No greater than 1cm abdominal or pelvic lymph nodes are appreciated. OSSEOUS STRUCTURES: Multilevel Facet arthropathy in the lower lumbar spine is redemonstrated. OTHER: Mild to moderate diffuse subcutaneous edema particularly anteriorly in the abdomen and pelvis is seen. Small size fat containing umbilical hernia sagittal image 96 redemonstrated. IMPRESSION: 1. Mild to moderate diffuse subcutaneous edema over the abdomen and pelvis greatest anteriorly. 2. There is new right paracentral or periumbilical hernia containing fat and small portion of transve rse colon along with some focal free fluid. No bowel obstruction.
[2024-01-13] MEDS: ONDANSETRON ODT 4 MG TAB PO STA (14:19)
[2024-01-13] MEDS: ACETAMINOPHEN TAB 500 MG TAB PO STA (14:20)
[2024-01-13] MEDS ORDERED: NALOXONE 0.4 MG/ML 1 ML VIAL IV PRN (14:25)
[2024-01-13] MEDS: METOCLOPRAMIDE 5 MG/ML 2 ML VIAL IVP STA (14:37)
[2024-01-13] MEDS: POTASSIUM CHLORIDE ER 20 MEQ TAB.ER PO STA (14:38)
[2024-01-13] MEDS: FUROSEMIDE 10 MG/ML 4 ML VIAL IV STA (14:40)
[2024-01-13] MEDS: FUROSEMIDE 10 MG/ML 2 ML VIAL IV STA (14:41)
[2024-01-13] MEDS: traMADol 50 MG TAB PO PRN (14:45)
[2024-01-13] MEDS: POTASSIUM CHLORIDE 10 MEQ in WATER FOR INJECTION 1 100ML.BAG IVPB STA (14:50)
[2024-01-13 15:31] LABS: Appearance,Urine Clear (Clear); Bilirubin,Urine Negative (Negative); Blood,Urine Negative (Negative); Color,Urine Light Yellow; Glucose,Urine (UA) Negative (Negative); Ketones,Urine Negative (Negative); Leukocyte Esterase,Urine Negative (Negative); Nitrite,Urine Negative (Negative); Protein,Urine Negative (Negative); Specific Gravity,Urine 1.027 (1.001-1.035)
[2024-01-13] MEDS: IPRATROPIUM-ALBUTEROL 3 ML NEB INHALATION SCH (16:57)
[2024-01-13 17:02] LABS: NT-Pro-B-Type Natriuretic Pept 1630 pg/mL
[2024-01-13] MEDS: LOSARTAN 50 MG TAB PO STA (17:08)
[2024-01-13] MEDS: HEPARIN SODIUM,PORCINE 5,000 UNIT/ML 1 ML VIAL SQ SCH (17:08)
[2024-01-13 18:20] LABS: T4, Free (Free Thyroxine) 1.18 ng/dL (0.78-2.19)
[2024-01-13] MEDS: LORazepam 2 MG/ML INJ IV PRN (20:23)
[2024-01-13] MEDS: HYDROmorphone 0.5 MG/0.5 ML SYRINGE IM PRN (20:28)
[2024-01-13] MEDS: FUROSEMIDE 10 MG/ML 2 ML VIAL IV SCH (21:51)
[2024-01-13] MEDS: METOPROLOL TARTRATE 12.5 MG TAB PO SCH (22:23)
[2024-01-13] MEDS: PRAZOSIN 1 MG CAP PO SCH (23:30)
[2024-01-13] MEDS: traZODone HCL 50 MG TAB PO SCH (23:30)
[2024-01-13] MEDS: NICOTINE 21MG/24HR PATCH TRANSDERM SCH (23:31)
[2024-01-14] MEDS: LORazepam 2 MG/ML INJ IV PRN (08:22)
--- NOTE | 2024-01-14 10:59 | P.CRDCN ---
History of Present Illness Consult date: 01/14/24 Chief complaint: Chest pain and shortness of breath History of present illness: The patient is a pleasant 48-year-old female patient with a past medical history significant for obesity and hypertension and dyslipidemia and sleep apnea and also paroxysmal atrial fibrillation by history presented to the hospital complaining of chest discomfort and shortness of breath. The patient stated that for the last week and a half she has been experiencing progressive exertional dyspnea associated with bilateral lower extremities edema. Beside that she has been experiencing intermittent episodes of chest discomfort. She described her discomfort as a pressure in the middle of the chest with no radiation to the arms or neck or shoulders or back and no associated symptoms of any presyncope or syncope or sweating or dizziness or lightheadedness. She has been feeling tired and fatigued and has no energy. Beside that she gained about 30 pounds within a week and a half. No history of heart failure or coronary artery disease and she stated that she does not follow-up with any principal statistical programmer on regular basis. In the hospital she underwent further workup including D- dimer came in to be abnormal but subsequently CTA of the chest showed no acute abnormalities and also she underwent a chest x-ray showed finding consistent with heart failure. Troponin came in to be abnormal. Beside that she underwent an EKG which showed sinus mechanism with T wave inversion anteriorly definitely new compared to previous EKGs before. The patient had an echo was performed in 2021 and that revealed normal LV systolic function with no significant valvular abnormalities. Her NT proBNP came in to be elevated. When the patient was seen and evaluated this morning she is definitely in overt heart failure and she is sitting at 45 angle and definitely she is more short of breath laying flat in bed. Currently she is on Lasix IV. The examination is remarkable for severe bilateral lower extremities edema and diminished breathing sounds bilaterally and regular rate and rhythm. Assessment Acute non-ST elevation myocardial infarction Heart failure of unknown etiology with evidence of right and left failure Multiple comorbid conditions including hypertension and dyslipidemia and overweight History of atrial fibrillation according to the patient. The patient is not on any oral anticoagulation Possibly sleep apnea Plan Increase the dose of Lasix to 40 mg IV twice daily Monitor the kidney function and electrolytes Start the patient on heparin IV Start the patient on aspirin Continue beta-lise and losartan Follow-up on the echocardiogram The patient need to undergo coronary angiogram once she is doing better from the heart failure standpoint of view and a earlier if she develop any chest pain or chest discomfort Past Medical History Past Medical History: Atrial Fibrillation, Hypertension, Pulmonary Embolus (PE), Thyroid Disorder Additional Past Medical History / Comment(s): Pt states she has an arrythmia (afib), pancreatitis and chronic back and neck pain. Herniated Disk History of Any Multi-Drug Resistant Organisms: CRE, Other MDRO Date of last positivie culture/infection: 07/16/21 MDRO Source:: URINE Past Surgical History: Appendectomy, Orthopedic Surgery Additional Past Surgical History / Comment(s): titanium wrist right, abdominal exploratory open appy, left elbow pin from falling out of tree Past Anesthesia/Blood Transfusion Reactions: No Reported Reaction Past Psychological History: Anxiety, Depression, PTSD Smoking Status: Current every day smoker Past Alcohol Use History: Heavy Additional Past Alcohol Use History / Comment(s): Pt states she quit smoking 2019 and restarted this year after losing her parents Past Drug Use History: None Reported Additional Drug Use History / Comment(s): started drinking 1993 quit 09/23/21, relapsed 11/2021 after mom . states she has quit drinking for about 3 years - Past Family History Father History Unknown: Yes Family Medical History: Osteoarthritis (OA) Medications and Allergies Home Medications Medication Instructions Recorded Confirmed Type Metoprolol Tartrate [Lopressor] 25 mg PO TID 02/16/22 01/13/24 History Furosemide [Lasix] 20 mg PO DAILY 30 Days #30 tab 10/20/22 01/13/24 Rx traMADol HCL 50 mg PO BID PRN 01/25/23 01/13/24 History traZODone HCL 150 mg PO HS 01/25/23 01/13/24 History Prazosin HCl 2 mg PO HS 01/13/24 01/13/24 History Unknown Thyroid Medication 1 dose PO DIRECTED 01/13/24 01/13/24 History (Unknown Strength) Allergies Allergy/AdvReac Type Severity Reaction Status Date / Time Penicillins Allergy Unknown Verified 01/13/24 15:58 Childhood Physical Exam Vitals: Vital Signs Temp Pulse Pulse Resp BP BP BP 01/14/24 09:22 76 01/14/24 09:13 72 01/14/24 08:12 104 H 22 98/64 01/14/24 06:36 84/48 01/14/24 04:44 101 H 20 89/57 01/14/24 02:45 116/77 01/14/24 02:31 111/71 01/14/24 02:16 99/65 01/14/24 02:03 88/46 01/14/24 02:01 83/48 01/14/24 02:00 97 01/14/24 01:43 101/59 01/14/24 01:28 84/52 01/14/24 01:23 76/46 01/14/24 01:08 84/46 88/52 01/14/24 01:02 70/44 01/14/24 00:52 87/51 01/13/24 23:47 104 H 01/13/24 22:02 98.2 F 104 H 20 98/61 01/13/24 20:12 99 01/13/24 20:02 95 01/13/24 18:51 01/13/24 18:45 101 H 16 96/59 01/13/24 18:22 68 01/13/24 17:08 112 H 01/13/24 17:00 68 18 107/59 01/13/24 16:59 110 H 01/13/24 12:55 18 01/13/24 11:50 98.5 F 110 H 26 H 173/92 Pulse Ox 01/14/24 09:22 01/14/24 09:13 01/14/24 08:12 91 L 01/14/24 06:36 01/14/24 04:44 94 L 01/14/24 02:45 01/14/24 02:31 01/14/24 02:16 01/14/24 02:03 01/14/24 02:01 01/14/24 02:00 01/14/24 01:43 01/14/24 01:28 01/14/24 01:23 01/14/24 01:08 01/14/24 01:02 01/14/24 00:52 01/13/24 23:47 01/13/24 22:02 93 L 01/13/24 20:12 01/13/24 20:02 01/13/24 18:51 94 L 01/13/24 18:45 81 L 01/13/24 18:22 01/13/24 17:08 01/13/24 17:00 94 L 01/13/24 16:59 01/13/24 12:55 01/13/24 11:50 95 Intake and Output 01/13/24 01/14/24 01/14/24 22:59 06:59 14:59 Other: Voiding Method Toilet Toilet Weight 129.274 kg 131.8 kg Results 01/13/24 12:19 01/13/24 12:19 Cardiac Enzymes 01/13/24 01/13/24 01/13/24 Range/Units 12:19 12:19 15:44 AST 129 H (14-36) U/L Troponin I 0.038 H* 0.070 H* (0.000-0.034) ng/mL Coagulation 01/13/24 Range/Units 12:19 PT 10.2 (10.0-12.5) sec APTT 21.2 L (22.0-30.0) sec CBC 01/13/24 Range/Units 12:19 WBC 8.7 (3.8-10.6) k/uL RBC 3.11 L (3.80-5.40) m/uL Hgb 10.5 L (11.4-16.0) gm/dL Hct 33.1 L (34.0-46.0) % Plt Count 238 (150-450) k/uL Comprehensive Metabolic Panel 01/13/24 Range/Units 12:19 Sodium 137 (137-145) mmol/L Potassium 2.9 L (3.5-5.1) mmol/L Chloride 97 L (98-107) mmol/L Carbon Dioxide 35 H (22-30) mmol/L BUN 5 L (7-17) mg/dL Creatinine 0.52 (0.52-1.04) mg/dL Glucose 108 H (74-99) mg/dL Calcium 8.4 (8.4-10.2) mg/dL AST 129 H (14-36) U/L ALT 64 H (4-34) U/L Alkaline Phosphatase 244 H (38-126) U/L Total Protein 6.4 (6.3-8.2) g/dL Albumin 3.5 (3.5-5.0) g/dL Current Medications Generic Name Dose Route Start Last Admin Trade Name Freq PRN Reason Stop Dose Admin Albuterol/Ipratropium 3 ml 01/13/24 16:00 01/14/24 09:13 Ipratropium-Albuterol 3 Ml Neb INHALATION 3 ml RT-QID MISAEL Administration Furosemide 20 mg 01/13/24 23:00 01/14/24 08:21 Furosemide 10 Mg/Ml 2 Ml Vial IV 20 mg Q8H MISAEL Administration Furosemide 20 mg 01/14/24 10:53 Furosemide 10 Mg/Ml 2 Ml Vial IV 01/14/24 10:54 ONCE ONE Heparin Sodium (Porcine) 5,000 unit 01/13/24 16:00 01/14/24 08:22 Heparin Sodium,Porcine 5,000 Unit/Ml 1 Ml Vial SQ 5,000 unit Q8HR MISAEL Administration Hydromorphone HCl 0.5 mg 01/13/24 20:25 01/13/24 20:28 Hydromorphone 0.5 Mg/0.5 Ml Syringe IM 0.5 mg Q6HR PRN Administration Pain Hydromorphone HCl 0.5 mg 01/13/24 20:01 Hydromorphone 0.5 Mg/0.5 Ml Syringe IVP Q6HR PRN Pain Lorazepam 0.5 mg 01/13/24 20:05 01/14/24 08:22 Lorazepam 2 Mg/Ml Inj IV 0.5 mg Q6HR PRN Administration Anxiety Metoprolol Tartrate 12.5 mg 01/13/24 21:00 01/14/24 08:22 Metoprolol Tartrate 12.5 Mg Tab PO 12.5 mg BID MISAEL Administration Naloxone HCl 0.2 mg 01/13/24 14:25 Naloxone 0.4 Mg/Ml 1 Ml Vial IV Q2M PRN Opioid Reversal Nicotine 1 patch 01/13/24 22:30 01/14/24 08:22 Nicotine 21mg/24hr Patch TRANSDERM 1 patch DAILY MISAEL Administration Prazosin HCl 2 mg 01/13/24 22:30 01/13/24 23:30 Prazosin 1 Mg Cap PO 2 mg HS MISAEL Administration Tramadol HCl 50 mg 01/13/24 14:25 01/13/24 23:30 Tramadol 50 Mg Tab PO 50 mg Q6H PRN Administration Moderate Pain (Scale 4 to 6) Trazodone HCl 150 mg 01/13/24 22:30 01/13/24 23:30 Trazodone Hcl 50 Mg Tab PO 150 mg HS MISAEL Administration Intake and Output 01/13/24 01/14/24 01/14/24 22:59 06:59 14:59 Other: Voiding Method Toilet Toilet Weight 129.274 kg 131.8 kg 01/13/24 12:19 01/13/24 12:19
[2024-01-14] MEDS: HEPARIN SOD,PORK IN 0.45% NACL 25,000 UNIT in 0.45% NACL 1 250ML.BAG IV SCH (11:25)
[2024-01-14] MEDS: HEPARIN SODIUM 1,000 UN/ML (10ML VL) IV ONE (11:25)
[2024-01-14] MEDS: FUROSEMIDE 10 MG/ML 2 ML VIAL IV ONE (11:25)
[2024-01-14] MEDS: ASPIRIN 81 MG PO SCH (11:25)
[2024-01-14 12:40] LABS: ALT 57 U/L (4-34); AST 86 U/L (14-36); African American GFR (CKD) 70 (>60 ml/min/1.73 sqM); Albumin 3.3 g/dL (3.5-5.0); Alkaline Phosphatase 191 U/L (38-126); Anion Gap 8 mmol/L; Blood Urea Nitrogen 13 mg/dL (7-17); Calcium 8.2 mg/dL (8.4-10.2); Carbon Dioxide 32 mmol/L (22-30); Chloride 97 mmol/L (98-107); Glucose 94 mg/dL (74-99); INR 0.9 (<1.2); Non-African American GFR(CKD) 60 (>60 ml/min/1.73 sqM); Potassium 3.5 mmol/L (3.5-5.1); Prothrombin Time 10.1 sec (10.0-12.5); Sodium 137 mmol/L (137-145); Total Bilirubin 1.1 mg/dL (0.2-1.3); Total Protein 6.3 g/dL (6.3-8.2)
[2024-01-14 12:42] LABS: Anisocytosis Slight; Basophils # (A) 0.1 k/uL (0-0.2); Basophils % (A) 1 %; Eosinophils # (A) 0.2 k/uL (0-0.7); Eosinophils % (A) 3 %; HGB 9.4 gm/dL (11.4-16.0); Hypochromasia Marked; Lymphocytes # (A) 1.1 k/uL (1.0-4.8); Lymphocytes % (A) 15 %; MCH 33.9 pg (25.0-35.0); MCHC 30.4 g/dL (31.0-37.0); MCV 111.4 fL (80.0-100.0); Macrocytosis Marked; Mean Platelet Volume 9.8; Monocytes # (A) 0.4 k/uL (0-1.0); Monocytes % (A) 6 %; Neutrophils # (A) 5.4 k/uL (1.3-7.7); Neutrophils % (A) 74 %; Platelet Count 175 k/uL (150-450); RBC 2.78 m/uL (3.80-5.40); RDW 18.6 % (11.5-15.5); WBC 7.4 k/uL (3.8-10.6)
[2024-01-14 12:43] LABS: Partial Thromboplastin Time 18.9 sec (22.0-30.0)
[2024-01-14 13:16] LABS: Anisocytosis (M) Present; Hypochromasia (M) Present; Polychromasia Present
[2024-01-14] MEDS: DOXYCYCLINE 100 MG CAP PO SCH (15:14)
[2024-01-14] MEDS: HEPARIN SODIUM 1,000 UN/ML (10ML VL) IV PRN (17:31)
--- NOTE | 2024-01-14 19:30 | CA ---
Transthoracic Echo Report Name: Mechelle Bang Age: 48 Gender: F : 1975 Exam Date: 01/14/2024 14:21 Exam Location: [facility] Ht (in): 66 Wt (lb): 285 Ordering Physician: Josef Carlson MD Attending/Referring Phys: Cfa Imani Morrow RDCS Procedure CPT: Indications: chf Cardiac Hx: Technical Quality: Technically difficult study Contrast 1: Total Dose (mL): Contrast 2: Total Dose (mL): MEASUREMENTS (Male / Female) Normal Values 2D ECHO LV Diastolic Diameter PLAX 4.1 cm 4.2 - 5.9 / 3.9 - 5.3 cm LV Systolic Diameter PLAX 2.8 cm IVS Diastolic Thickness 1.7 cm 0.6 - 1.0 / 0.6 - 0.9 cm LVPW Diastolic Thickness 1.1 cm 0.6 - 1.0 / 0.6 - 0.9 cm LV Relative Wall Thickness 0.7 LVOT Diameter 2.0 cm Aortic Root Diameter 3.2 cm LA Systolic Diameter LX 4.0 cm 3.0 - 4.0 / 2.7 - 3.8 cm DOPPLER Mitral E Point Velocity 87.5 cm/s Mitral A Point Velocity 58.7 cm/s Mitral E to A Ratio 1.5 MV Deceleration Time 189.6 ms PV Peak Velocity 100.2 cm/s PV Peak Gradient 4.0 mmHg FINDINGS Left Ventricle Severely increased septal wall thickness. Mildly increased posterior wall thickness. Left ventricular ejection fraction is estimated at 55-60%. Right Ventricle Right ventricle not well visualized. Right Atrium Right atrium not well visualized. Left Atrium Mildly increased left atrial diameter. Mitral Valve Structurally normal mitral valve. Aortic Valve Trileaflet aortic valve. Tricuspid Valve Trace to mild tricuspid regurgitation. Pulmonic Valve Trace pulmonic regurgitation. Pericardium No pericardial effusion. Aorta Normal size aortic root. CONCLUSIONS Previous echo recorded on 10/19/2022. Technically difficult study Normal LV systolic function Previewed by: Dr. Edmund Irizarry MD (Electronically Signed) Final Date: 14 January 2024 19:29
[2024-01-14] MEDS: FUROSEMIDE 10 MG/ML 4 ML VIAL IV SCH (20:33)
--- NOTE | 2024-01-14 23:41 | HP ---
HISTORY AND PHYSICAL HISTORY OF PRESENT ILLNESS: She is a 48-year-old white female I have known for a long time, who went off all her medicines over the last 6 months. She has gained a lot of fluid weight gain. Ambulating for the last 2 weeks. Positive PND, orthopnea. She came to the hospital because of discomfort in the lower chest, worse when she is walking and breathing. She has gained 30 pounds in a week and a half. CTA shows findings consistent with possible heart failure on a chest x-ray, possible pulmonary hypertension. T-wave anteriorly abnormal. Echo is pending. BNP came back elevated. She had hypotension with her standard heart medicines started overnight that she normally takes. She is using CPAP machine to test as outpatient, severe bilateral lower extremities edema, diminished breath sounds. EKG was evaluated. Cardiology was consulted. She was started on heparin drip for possible TX with elevated troponins. She has right-sided heart failure, most likely, hypertension, dyslipidemia, overweight, history of atrial fibrillation possible, but she has also had sleep apnea and she has hypertension outpatient. PAST MEDICAL HISTORY: Atrial fibrillation, intermittent, possibly hypertension, history of PE, and hypothyroidism. She was started on IV Lasix in the ER and heparin, aspirin, beta lise, losartan. She had hypotension overnight. We will have to consider holding this if her blood pressure goes low. She is a long-time smoker . She has gained a lot of weight. She smokes every day. She has anxiety, depression, PTSD, possible bipolar 2. HOME MEDICINES: She is supposed to be on. 1. Lopressor 25 b.i.d. 2. Lasix 20 daily. 3. Tramadol for chronic wrist pain for wrist fracture she has had. 4. Prazosin for night terrors 2 mg at night. 5. Trazodone 150 at night for sleeping. ALLERGIES: Penicillin. PHYSICAL EXAMINATION: VITAL SIGNS: Temperature 98.2, pulse is 104 to 112, respiratory rate 18 to 20, blood pressures were high when she came in, blood pressure medications have been given. CHEST: She has decreased breath sounds x4. CARDIOVASCULAR: S1, S2. No significant murmurs. EXTREMITIES: She has anasarca type changes in her extremities. 2 to 3+ edema. ABDOMEN: Soft, distended. BMI is over 40. LABORATORY DATA: Oxygenated hemoglobin is 10.5, white count 8.7. Potassium is low 2.9, sodium 137, BUN is 5, creatinine is 0.52, carbon dioxide high at 36. Liver enzymes are high, alkaline phosphatase is 244, ALT 64, AST is 129. ASSESSMENT: Elevated troponin, possible TX, on heparin drip, treating for heart failure. CTA of the chest is reviewed. Treated with diuresis and blood pressure medications and heparin. Wait for cardiology recommendations. Await for echo. Prognosis guarded. MMODL / IJN: [id number] /
--- NOTE | 2024-01-15 02:20 | PN ---
PROGRESS NOTE SUBJECTIVE: A 48-year-old white female. She is 94 on 2 L air flow. Temperature is 98. Blood pressure is 82/55, pulse is 86 to 70s, respiratory rate 18-20. She is possibly having an anterior SC. She has had 2 elevated troponins non STEMI. Her fever of unknown etiology, right and left heart failure, hypertension, dyslipidemia, overweight, history of atrial fibrillation, possible sleep apnea. OBJECTIVE: VITAL SIGNS: Reviewed. CARDIOVASCULAR: S1, S2. HEMATOLOGY: Negative for Homans. PSYCH: Fair mood and affect. NEUROLOGIC: Alert and oriented x3. Hemoglobin is 10.5, white count is 2.9. PLAN: Continue with the heparin IV, aspirin, beta-lise, losartan, possible sleep apnea. Continue current treatment. Continue with steroids, IV heparin. Liver enzymes are improving. Possible cardiorenal syndrome. Elevated troponin secondary to anterior SC. Possible heart catheterization to be needed, D-dimer. CT of the chest negative for PE. Acute on chronic anemia. Hemoglobin is 9.4. MMODL / IJN: [id number] /
[2024-01-15 09:35] LABS: Anisocytosis Slight; Basophils # (A) 0.1 k/uL (0-0.2); Basophils % (A) 1 %; Eosinophils # (A) 0.2 k/uL (0-0.7); Eosinophils % (A) 2 %; HCT 30.3 % (34.0-46.0); HGB 9.2 gm/dL (11.4-16.0); Hypochromasia Marked; Lymphocytes % (A) 24 %; MCHC 30.4 g/dL (31.0-37.0); MCV 111.6 fL (80.0-100.0); Macrocytosis Marked; Monocytes # (A) 0.4 k/uL (0-1.0); Monocytes % (A) 5 %; Neutrophils # (A) 5.4 k/uL (1.3-7.7); Neutrophils % (A) 65 %; Platelet Count 209 k/uL (150-450); RBC 2.71 m/uL (3.80-5.40); RDW 18.1 % (11.5-15.5); WBC 8.3 k/uL (3.8-10.6)
[2024-01-15 09:45] LABS: INR 0.9 (<1.2); Partial Thromboplastin Time 35.1 sec (22.0-30.0); Prothrombin Time 10.5 sec (10.0-12.5)
[2024-01-15 11:47] LABS: ALT 50 U/L (4-34); AST 78 U/L (14-36); African American GFR (CKD) >90 (>60 ml/min/1.73 sqM); Albumin 3.6 g/dL (3.5-5.0); Alkaline Phosphatase 201 U/L (38-126); Anion Gap 2 mmol/L; Blood Urea Nitrogen 15 mg/dL (7-17); Calcium 8.4 mg/dL (8.4-10.2); Carbon Dioxide 39 mmol/L (22-30); Chloride 97 mmol/L (98-107); Glucose 95 mg/dL (74-99); Non-African American GFR(CKD) 86 (>60 ml/min/1.73 sqM); Sodium 138 mmol/L (137-145); Total Protein 6.6 g/dL (6.3-8.2)
[2024-01-15] MEDS: metOLazone 5 MG TAB PO ONE (12:54)
--- NOTE | 2024-01-15 14:48 | P.PN ---
Subjective HISTORY OF PRESENT ILLNESS: The patient is a pleasant 48-year-old female patient with a past medical history significant for obesity and hypertension and dyslipidemia and sleep apnea and also paroxysmal atrial fibrillation by history presented to the hospital complaining of chest discomfort and shortness of breath. The patient stated that for the last week and a half she has been experiencing progressive exertional dyspnea associated with bilateral lower extremities edema. Beside that she has been experiencing intermittent episodes of chest discomfort. She described her discomfort as a pressure in the middle of the chest with no radiat ion to the arms or neck or shoulders or back and no associated symptoms of any presyncope or syncope or sweating or dizziness or lightheadedness. She has been feeling tired and fatigued and has no energy. Beside that she gained about 30 pounds within a week and a half. No history of heart failure or coronary artery disease and she stated that she does not follow-up with any department head on regu lar basis. In the hospital she underwent further workup including D-dimer came in to be abnormal but subsequently CTA of the chest showed no acute abnormalities and also she underwent a chest x-ray showed finding consistent with heart failure. Troponin came in to be abnormal. Beside that she underwent an EKG which showed sinus mechanism with T wave inversion anteriorly definitely new compared to previous EKGs before. The patient had an echo was performed in 2021 and that revealed normal LV systolic function with no significant valvular abnormalities. Her NT proBNP came in to be elevated. When the patient was seen and evaluated this morning she is definitely in overt heart failure and she is sitting at 45 angle and definitely she is more short of breath laying flat in bed. Currently she is on Lasix IV. The examination is remarkable for severe bilateral lower extremities edema and diminished breathing sounds bilaterally and regular rate and rhythm. 01/15/2024 Patient examined this morning at the bedside. She reports mild shortness of breath. Patient denies chest pain or pressure. Patient remains on IV Lasix 40 mg every 12 hours. Patient states that she does not feel like she is urinating a lot. Urine output documented over the last 24 hours is 1.3 L. She continues to report lower extremity edema and abdominal swelling. Echocardiogram completed revealing ejection fraction 55 to 60%, trace to mild TR PHYSICAL EXAM: VITAL SIGNS: Reviewed. GENERAL: Well-developed in no acute distress. NECK: Supple. No JVD or thyromegaly LUNGS: Respirations even and unlabored. Lungs essentially clear to auscultation bilaterally. HEART: Regular rate and rhythm. S1 and S2 heard. EXTREMITIES: Normal range of motion. No clubbing or cyanosis. Peripheral pulses intact. No lower extremity edema ASSESSMENT: Shortness of breath Acute heart failure with preserved EF Mildly elevated troponins, may be secondary to above, possible non-STEMI History of atrial fibrillation per patient, not anticoagulated on an outpatient basis Hypertension Hyperlipidemia Morbid obesity Nicotine dependence PLAN: Continue current cardiac medications Discontinue IV heparin Continue IV Lasix 40 mg every 12 hours Daily weights, accurate intake and output, and monitoring of kidney function Add Zaroxolyn 5 mg daily Smoking cessation recommended No plans for cardiac catheterization at this time. Will plan for outpatient ischemic workup Further recommendations pending patient course Nurse practitioner note has been reviewed by physician. Signing provider agrees with the documented findings, assessment, and plan of care documented by LEAD QUALITY CONTROL TECHNICIAN as a scribe. Objective - Vital Signs Vital signs: Vital Signs Temp 99 F 01/15/24 12:40 Pulse 87 01/15/24 12:40 Resp 20 01/15/24 12:40 BP 103/59 01/15/24 12:40 Pulse Ox 95 01/15/24 12:40 FiO2 Intake & Output 01/14/24 01/15/24 01/15/24 18:59 06:59 18:59 Intake Total 60.5 332.551 336.949 Output Total 837 500 Balance -776.5 -167.449 336.949 Weight 133.2 kg Intake: Intake, IV Titration 60.5 92.551 96.949 Amount Heparin Sod,Pork in 0.45% 60.5 92.551 96.949 NaCl 25,000 unit In 0.45 % NaCl 1 250ml.bag @ 7. 587 UNITS/KG/HR 10 mls/hr IV .Q24H [facility] Rx#: [id number] Oral 240 240 Output: Urine 600 500 Post Void Residual 237 Other: Voiding Method Toilet Toilet Toilet - Labs CBC & Chem 7: 01/15/24 09:05 01/15/24 09:05 Labs: Abnormal Lab Results - Last 24 Hours (Table) 01/15/24 01/15/24 01/15/24 Range/Units 09:05 09:05 09:05 RBC 2.71 L (3.80-5.40) m/uL Hgb 9.2 L (11.4-16.0) gm/dL Hct 30.3 L (34.0-46.0) % MCV 111.6 H (80.0-100.0) fL MCHC 30.4 L (31.0-37.0) g/dL RDW 18.1 H (11.5-15.5) % Macrocytosis Marked A APTT 35.1 H (22.0-30.0) sec Chloride 97 L (98-107) mmol/L Carbon Dioxide 39 H (22-30) mmol/L AST 78 H (14-36) U/L ALT 50 H (4-34) U/L Alkaline Phosphatase 201 H (38-126) U/L
[2024-01-15] MEDS: HYDROmorphone 0.5 MG/0.5 ML SYRINGE IVP PRN (15:24)
[2024-01-15] MEDS: METOPROLOL TARTRATE 25 MG TAB PO SCH (21:22)
--- NOTE | 2024-01-16 05:53 | PN ---
PROGRESS NOTE SUBJECTIVE: This is a 48-year-old white female who came to the hospital with congestive heart failure. Her oxygen dropped down to 60 yesterday without oxygen on, pulse ox went up to 94 on 3 L. She is on IV Lasix every 12 hours. She is not urinating very much, urine output in last 24 hours 1.3 L. Extremity edema and abdominal swelling. Echocardiogram completed revealed ejection fraction . OBJECTIVE: VITAL SIGNS: Temperature 99, pulse 80 to 87, respiratory rate 16 to 20, blood pressure 103/59, and O2 95. HEENT: Normocephalic, atraumatic. LUNGS: Clear. HEART: S1, S2. EXTREMITIES: No cyanosis, clubbing, or edema. ASSESSMENT: Shortness of breath, acute heart failure, preserved EF, elevated troponins secondary to possible non-STEMI. History of atrial fibrillation, hypertension, dyslipidemia, morbid obesity, nicotine addiction. Continue on IV Lasix. Continue cardiac medications. Suboxone has been added for increased urine output. No cardiac catheterization will be done yet. Possible outpatient heart catheterization will be done. Continue on present treatments for COPD and has access pulmonary hypertension. Continue to monitor for signs of hypotension due to cardiac medicines. Currently, the blood pressure is 133/83, O2 97 on 4, temperature 99, pulse is 80s to 90s. PROGNOSIS: Extremely guarded. MMODL / IJN: [id number] /
[2024-01-16] MEDS: metOLazone 5 MG TAB PO SCH (08:40)
[2024-01-16 09:25] LABS: Anisocytosis Slight; Basophils % (A) 1 %; Eosinophils # (A) 0.2 k/uL (0-0.7); Eosinophils % (A) 3 %; HCT 31.8 % (34.0-46.0); HGB 9.6 gm/dL (11.4-16.0); Hypochromasia Marked; Lymphocytes # (A) 1.2 k/uL (1.0-4.8); Lymphocytes % (A) 18 %; MCH 32.4 pg (25.0-35.0); MCV 107.9 fL (80.0-100.0); Mean Platelet Volume 8.1; Monocytes # (A) 0.4 k/uL (0-1.0); Monocytes % (A) 6 %; Neutrophils # (A) 4.7 k/uL (1.3-7.7); Neutrophils % (A) 70 %; Platelet Count 267 k/uL (150-450); RBC 2.95 m/uL (3.80-5.40); RDW 17.9 % (11.5-15.5); WBC 6.7 k/uL (3.8-10.6)
[2024-01-16 09:51] LABS: ALT 48 U/L (4-34); AST 68 U/L (14-36); African American GFR (CKD) >90 (>60 ml/min/1.73 sqM); Albumin 3.7 g/dL (3.5-5.0); Alkaline Phosphatase 176 U/L (38-126); Blood Urea Nitrogen 13 mg/dL (7-17); Calcium 9.3 mg/dL (8.4-10.2); Chloride 91 mmol/L (98-107); Glucose 123 mg/dL (74-99); Non-African American GFR(CKD) >90 (>60 ml/min/1.73 sqM); Potassium 3.8 mmol/L (3.5-5.1); Sodium 138 mmol/L (137-145); Total Bilirubin 1.2 mg/dL (0.2-1.3); Total Protein 6.9 g/dL (6.3-8.2)
[2024-01-16 09:53] LABS: Macrocytosis Marked
[2024-01-16 09:58] LABS: Anion Gap 9 mmol/L
[2024-01-16 09:59] LABS: Carbon Dioxide 38 mmol/L (22-30)
--- NOTE | 2024-01-16 12:54 | P.PN ---
Subjective HISTORY OF PRESENT ILLNESS: The patient is a pleasant 48-year-old female patient with a past medical history significant for obesity and hypertension and dyslipidemia and sleep apnea and also paroxysmal atrial fibrillation by history presented to the hospital complaining of chest discomfort and shortness of breath. The patient stated that for the last week and a half she has been experiencing progressive exertional dyspnea associated with bilateral lower extremities edema. Beside that she has been experiencing intermittent episodes of chest discomfort. She described her discomfort as a pressure in the middle of the chest with no radiat ion to the arms or neck or shoulders or back and no associated symptoms of any presyncope or syncope or sweating or dizziness or lightheadedness. She has been feeling tired and fatigued and has no energy. Beside that she gained about 30 pounds within a week and a half. 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 In the hospital she underwent further workup including D-dimer came in to be abnormal but subsequently CTA of the chest showed no acute abnormalities and also she underwent a chest x-ray showed finding consistent with heart failure. Troponin came in to be abnormal. Beside that she underwent an EKG which showed sinus mechanism with T wave inversion anteriorly definitely new compared to previous EKGs before. The patient had an echo was performed in 2021 and that revealed normal LV systolic function with no significant valvular abnormalities. Her NT proBNP came in to be elevated. When the patient was seen and evaluated this morning she is definitely in overt heart failure and she is sitting at 45 angle and definitely she is more short of breath laying flat in bed. Currently she is on Lasix IV. The examination is remarkable for severe bilateral lower extremities edema and diminished breathing sounds bilaterally and regular rate and rhythm. 01/15/2024 Patient examined this morning at the bedside. She reports mild shortness of breath. Patient denies chest pain or pressure. Patient remains on IV Lasix 40 mg every 12 hours. Patient states that she does not feel like she is urinating a lot. Urine output documented over the last 24 hours is 1.3 L. She continues to report lower extremity edema and abdominal swelling. Echocardiogram completed revealing ejection fraction 55 to 60%, trace to mild TR 01/15/2024 Patient examined this morning at the bedside. Patient states that she feels that she is improving compared to yesterday. She reports improvement in her sh ortness of breath and lower extremity swelling. She now reports a productive cough. She does report that she has been urinating more with the addition of Zaroxolyn. Urine output for the last 24 hours is approximately 2 L. Vital signs are stable. Creatinine today 0.71. PHYSICAL EXAM: VITAL SIGNS: Reviewed. GENERAL: Well-developed in no acute distress. NECK: Supple. No JVD or thyromegaly LUNGS: Respirations even and unlabored. Lungs with mild wheezing noted HEART: Regular rate and rhythm. S1 and S2 heard. EXTREMITIES: Normal range of motion. No clubbing or cyanosis. Peripheral pulses intact. 1-2+ pitting lower extremity edema ASSESSMENT: Shortness of breath Acute heart failure with preserved EF Mildly elevated troponins, may be secondary to above, possible non-STEMI History of atrial fibrillation per patient, not anticoagulated on an outpatient basis Hypertension Hyperlipidemia Morbid obesity Nicotine dependence Mildly elevated liver enzymes PLAN: Continue current cardiac medications Continue IV Lasix 40 mg every 12 hours continue Zaroxolyn. Daily weights, accurate intake and output, and monitoring of kidney function Smoking cessation recommended No plans for cardiac catheterization at this time. Will plan for outpatient ischemic workup Further recommendations pending patient course Nurse practitioner note has been reviewed by physician. Signing provider agrees with the documented findings, assessment, and plan of care documented by CASINO ATTENDANT as a scribe. Objective - Vital Signs Vital signs: Vital Signs Temp 98.0 F 01/16/24 11:37 Pulse 92 01/16/24 11:38 Resp 18 01/16/24 11:37 BP 92/58 01/16/24 11:37 Pulse Ox 93 L 01/16/24 11:37 FiO2 Intake & Output 01/15/24 01/16/24 01/16/24 18:59 06:59 18:59 Intake Total 336.949 180 Output Total 2100 3200 Balance 336.949 -2100 -3020 Weight 127.3 kg Intake: Intake, IV Titration 96.949 Amount Heparin Sod,Pork in 0.45% 96.949 NaCl 25,000 unit In 0.45 % NaCl 1 250ml.bag @ 7. 587 UNITS/KG/HR 10 mls/hr IV .Q24H [facility] Rx#: [id number] Oral 240 180 Output: Urine 2100 3200 Other: Voiding Method Toilet Toilet Toilet - Labs CBC & Chem 7: 01/16/24 08:56 01/16/24 08:56 Labs: Abnormal Lab Results - Last 24 Hours (Table) 01/16/24 01/16/24 Range/Units 08:56 08:56 RBC 2.95 L (3.80-5.40) m/uL Hgb 9.6 L (11.4-16.0) gm/dL Hct 31.8 L (34.0-46.0) % MCV 107.9 H (80.0-100.0) fL MCHC 30.0 L (31.0-37.0) g/dL RDW 17.9 H (11.5-15.5) % Macrocytosis Marked A Chloride 91 L (98-107) mmol/L Carbon Dioxide 38 H (22-30) mmol/L Glucose 123 H (74-99) mg/dL AST 68 H (14-36) U/L ALT 48 H (4-34) U/L Alkaline Phosphatase 176 H (38-126) U/L
--- NOTE | 2024-01-16 14:03 | XR ---
EXAMINATION TYPE: XR chest 2V DATE OF EXAM: 01/16/2024 COMPARISON: 01/13/2024. HISTORY: Leg edema. TECHNIQUE: Frontal and lateral views of the chest are obtained. FINDINGS: The heart is moderately enlarged and there is some mild scattered interstitial changes and edema are similar to the previous examination. No focal consolidation. IMPRESSION: No significant change.
--- NOTE | 2024-01-16 16:43 | P.PN ---
Progress Note - Text Progress Note Date: 01/16/24 Hospital course: I am rounding for Dr. Josef Carlson January 16, 2024: Sitting at the edge of the bed. Eating lunch. Breathing is unchanged. Some shortness of breath. Decreased edema. On IV Lasix. Active Medications Albuterol/Ipratropium (Ipratropium-Albuterol 3 Ml Neb) 3 ml INHALATION RT-QID [facility] Last Admin: 01/16/24 15:42 Dose: Not Given Aspirin (Aspirin 81 Mg) 81 mg PO DAILY [facility] Last Admin: 01/16/24 08:41 Dose: 81 mg Doxycycline Monohydrate (Doxycycline 100 Mg Cap) 100 mg PO BID [facility]; Protocol Last Admin: 01/16/24 08:41 Dose: 100 mg Furosemide (Furosemide 10 Mg/Ml 4 Ml Vial) 40 mg IV Q12HR [facility] Last Admin: 01/16/24 08:40 Dose: 40 mg Heparin Sodium (Porcine) (Heparin Sodium 1,000 Un/Ml (10ml Vl)) 0 unit IV PER PROTOCOL PRN; Protocol PRN Reason: Low PTT Last Admin: 01/15/24 00:08 Dose: 6,550 unit Hydromorphone HCl (Hydromorphone 0.5 Mg/0.5 Ml Syringe) 0.5 mg IM Q6HR PRN PRN Reason: Pain Last Admin: 01/13/24 20:28 Dose: 0.5 mg Hydromorphone HCl (Hydromorphone 0.5 Mg/0.5 Ml Syringe) 0.5 mg IVP Q6HR PRN PRN Reason: Pain Last Admin: 01/16/24 08:41 Dose: 0.5 mg Lorazepam (Lorazepam 2 Mg/Ml Inj) 0.5 mg IV Q6HR PRN PRN Reason: Anxiety Last Admin: 01/16/24 13:46 Dose: 0.5 mg Metolazone (Metolazone 5 Mg Tab) 5 mg PO DAILY@0830 [facility] Last Admin: 01/16/24 08:40 Dose: 5 mg Metoprolol Tartrate (Metoprolol Tartrate 25 Mg Tab) 25 mg PO BID [facility] Last Admin: 01/16/24 08:41 Dose: 25 mg Naloxone HCl (Naloxone 0.4 Mg/Ml 1 Ml Vial) 0.2 mg IV Q2M PRN PRN Reason: Opioid Reversal Nicotine (Nicotine 21mg/24hr Patch) 1 patch TRANSDERM DAILY [facility] Last Admin: 01/16/24 08:41 Dose: 1 patch Tramadol HCl (Tramadol 50 Mg Tab) 50 mg PO Q6H PRN PRN Reason: Moderate Pain (Scale 4 to 6) Last Admin: 01/15/24 21:33 Dose: 50 mg Trazodone HCl (Trazodone Hcl 50 Mg Tab) 150 mg PO HS [facility] Last Admin: 01/15/24 21:22 Dose: 150 mg On examination: VITAL SIGNS: [98.4, 86, 18, 104/71, 98% on 4 L] GENERAL APPEARANCE: BMI 45.1, sitting edge of the bed, eating lunch HEENT: Normal external appearance of nose and ear. Oral cavity normal EYES: Pupils equal. Conjunctiva normal. NECK: JVD not raised. Mass not palpable. RESPIRATORY: Respiratory effort increased. Lungs fair air entry CARDIOVASCULAR: First and second sounds normal. No edema. ABDOMEN: Soft. Liver and spleen not palpable. No tenderness. No mass palpable. PSYCHIATRY: Alert and oriented x3. Mood and affect normal. INVESTIGATIONS, reviewed in the clinical context: January 15: White count 6.7 hemoglobin 9.6 platelets 267 potassium 3.8 BUN 13 creatinine 0.71 AST 68 ALT 48 Chest x-ray film personally reviewed by me-[January 15] cardiomegaly. Some venous prominence EKG tracing personally reviewed by me-sinus rhythm. Some T wave changes anterolateral leads. 2D echocardiogram: EF 55 to 60%. Assessment plan: -Acute congestive heart failure exacerbation from preserved LV function.: Slow to respond Increase IV Lasix 40 mg every 8.. Being followed by cardiology. Fluid restriction 1500 cc a day -Positive troponin from CHF. No acute coronary syndrome -Paroxysmal atrial fibrillation currently in sinus rhythm. No anticoagulation being followed by cardiology -Essential hypertension Lopressor 25 mg twice daily -Chronic nicotine dependence cigarette smoker Nicotine patch -Hyperlipidemia -Morbid obesity BMI 45.3 Weight loss measures -Mild hepatitis Check liver ultrasound Continue current medication treatment plan add fluid restriction. Increase IV Lasix to every 8. Other medication to continue.
[2024-01-16] MEDS: FUROSEMIDE 10 MG/ML 4 ML VIAL IV SCH (17:36)
[2024-01-17 09:16] LABS: ALT 39 U/L (4-34); AST 50 U/L (14-36); African American GFR (CKD) >90 (>60 ml/min/1.73 sqM); Albumin 3.7 g/dL (3.5-5.0); Alkaline Phosphatase 154 U/L (38-126); Blood Urea Nitrogen 16 mg/dL (7-17); Calcium 9.4 mg/dL (8.4-10.2); Chloride 80 mmol/L (98-107); Glucose 106 mg/dL (74-99); Non-African American GFR(CKD) >90 (>60 ml/min/1.73 sqM); Potassium 3.3 mmol/L (3.5-5.1); Sodium 134 mmol/L (137-145); Total Bilirubin 1.1 mg/dL (0.2-1.3); Total Protein 6.8 g/dL (6.3-8.2)
[2024-01-17 09:25] LABS: Anion Gap 8 mmol/L
[2024-01-17 09:35] LABS: Carbon Dioxide 46 mmol/L (22-30)
[2024-01-17 09:36] LABS: Anisocytosis Slight; Basophils # (A) 0.1 k/uL (0-0.2); Basophils % (A) 1 %; Eosinophils # (A) 0.2 k/uL (0-0.7); Eosinophils % (A) 3 %; HCT 32.6 % (34.0-46.0); HGB 10.3 gm/dL (11.4-16.0); Hypochromasia Marked; Lymphocytes # (A) 1.3 k/uL (1.0-4.8); Lymphocytes % (A) 19 %; MCH 33.2 pg (25.0-35.0); MCHC 31.7 g/dL (31.0-37.0); MCV 104.8 fL (80.0-100.0); Macrocytosis Marked; Mean Platelet Volume 9.2; Monocytes # (A) 0.5 k/uL (0-1.0); Monocytes % (A) 7 %; Neutrophils % (A) 69 %; Platelet Count 277 k/uL (150-450); RBC 3.11 m/uL (3.80-5.40); WBC 7.1 k/uL (3.8-10.6)
--- NOTE | 2024-01-17 11:31 | US ---
EXAMINATION TYPE: US abdomen limited DATE OF EXAM: 01/17/2024 COMPARISON: CT abdomen and pelvis on 01/13/2024. CLINICAL INDICATION: Female, 48 years old with history of Mild elevation of liver enzymes; Abnormal l abs TECHNIQUE: Multiple sonographic images of the right upper quadrant are obtained. FINDINGS: EXAM MEASUREMENTS: Liver Length: 19.0 cm Gallbladder Wall: 0.2 cm CBD: 0.4 cm Right Kidney: 10.7 x 4.4 x 5.0 cm Pancreas: Head and tail obscured by overlying bowel gas Liver: Increased attenuation, decreased visualization of vessels suggestive of fatty infiltrate. En larged in size. Heterogenous and coarse. Gallbladder: No stones or wall thickening. Evidence for sonographic Demarco's sign: neg CBD: wnl Right Kidney: Slight cortical thinning IMPRESSION: 1. Hepatomegaly with hepatic steatosis. 2. No evidence of cholelithiasis or cholecystitis. 3. No evidence of biliary ductal dilation. 4. No evidence of hydronephrosis.
[2024-01-17] MEDS: acetaZOLAMIDE 250 MG TAB PO SCH (12:24)
[2024-01-17] MEDS: SPIRONOLACTONE 25 MG TAB PO SCH (12:24)
--- NOTE | 2024-01-17 13:05 | P.PN ---
Subjective HISTORY OF PRESENT ILLNESS: The patient is a pleasant 48-year-old female patient with a past medical history significant for obesity and hypertension and dyslipidemia and sleep apnea and also paroxysmal atrial fibrillation by history presented to the hospital complaining of chest discomfort and shortness of breath. The patient stated that for the last week and a half she has been experiencing progressive exertional dyspnea associated with bilateral lower extremities edema. Beside that she has been experiencing intermittent episodes of chest discomfort. She described her discomfort as a pressure in the middle of the chest with no radiat ion to the arms or neck or shoulders or back and no associated symptoms of any presyncope or syncope or sweating or dizziness or lightheadedness. She has been feeling tired and fatigued and has no energy. Beside that she gained about 30 pounds within a week and a half. 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 In the hospital she underwent further workup including D-dimer came in to be abnormal but subsequently CTA of the chest showed no acute abnormalities and also she underwent a chest x-ray showed finding consistent with heart failure. Troponin came in to be abnormal. Beside that she underwent an EKG which showed sinus mechanism with T wave inversion anteriorly definitely new compared to previous EKGs before. The patient had an echo was performed in 2021 and that revealed normal LV systolic function with no significant valvular abnormalities. Her NT proBNP came in to be elevated. When the patient was seen and evaluated this morning she is definitely in overt heart failure and she is sitting at 45 angle and definitely she is more short of breath laying flat in bed. Currently she is on Lasix IV. The examination is remarkable for severe bilateral lower extremities edema and diminished breathing sounds bilaterally and regular rate and rhythm. 01/15/2024 Patient examined this morning at the bedside. She reports mild shortness of breath. Patient denies chest pain or pressure. Patient remains on IV Lasix 40 mg every 12 hours. Patient states that she does not feel like she is urinating a lot. Urine output documented over the last 24 hours is 1.3 L. She continues to report lower extremity edema and abdominal swelling. Echocardiogram completed revealing ejection fraction 55 to 60%, trace to mild TR 01/16/2024 Patient examined this morning at the bedside. Patient states that she feels that she is improving compared to yesterday. She reports improvement in her sh ortness of breath and lower extremity swelling. She now reports a productive cough. She does report that she has been urinating more with the addition of Zaroxolyn. Urine output for the last 24 hours is approximately 2 L. Vital signs are stable. Creatinine today 0.71. 01/17/2024 Patient examined this morning at the bedside. Patient's Lasix was increased to every 8 hours yesterday per primary medicine. Patient CO2 increased to 46 today. Her creatinine remained stable at 0.64. Patient did have over 7 L of urine output for the last 24 hours. PHYSICAL EXAM: VITAL SIGNS: Reviewed. GENERAL: Well-developed in no acute distress. NECK: Supple. No JVD or thyromegaly LUNGS: Respirations even and unlabored. Lungs with mild wheezing noted HEART: Regular rate and rhythm. S1 and S2 heard. EXTREMITIES: Normal range of motion. No clubbing or cyanosis. Peripheral pulses intact. 1-2+ pitting lower extremity edema ASSESSMENT: Shortness of breath Acute heart failure with preserved EF Mildly elevated troponins, may be secondary to above, possible non-STEMI History of atrial fibrillation per patient, not anticoagulated on an outpatient basis Hypertension Hyperlipidemia Morbid obesity Nicotine dependence Mildly elevated liver enzymes Hypokalemia Contraction alkalosis secondary to diuresis PLAN: Continue current cardiac medications Decrease Lasix to every 12 hours due to alkalosis Continue Zaroxolyn Add Aldactone 25 mg daily Daily weights, accurate intake and output, and monitoring of kidney function Smoking cessation recommended No plans for cardiac catheterization at this time. Will plan for outpatient ischemic workup Further recommendations pending patient course Nurse practitioner note has been reviewed by physician. Signing provider agrees with the documented findings, assessment, and plan of care documented by TRENCH PIPE LAYER as a scribe. Objective - Vital Signs Vital signs: Vital Signs Temp 98.3 F 01/17/24 12:20 Pulse 89 01/17/24 12:20 Resp 16 01/17/24 12:20 BP 109/80 01/17/24 12:20 Pulse Ox 93 L 01/17/24 12:20 FiO2 Intake & Output 01/16/24 01/17/24 01/17/24 18:59 06:59 18:59 Intake Total 718 118 Output Total 4025 3300 400 Balance -3307 -3300 -282 Weight 119.3 kg Intake: Oral 718 118 Output: Urine 4025 3300 400 Other: Voiding Method Toilet Toilet Toilet # Voids 1 - Labs CBC & Chem 7: 01/17/24 08:18 01/17/24 08:18 Labs: Abnormal Lab Results - Last 24 Hours (Table) 01/17/24 01/17/24 Range/Units 08:18 08:18 RBC 3.11 L (3.80-5.40) m/uL Hgb 10.3 L (11.4-16.0) gm/dL Hct 32.6 L (34.0-46.0) % MCV 104.8 H (80.0-100.0) fL RDW 18.0 H (11.5-15.5) % Macrocytosis Marked A Sodium 134 L (137-145) mmol/L Potassium 3.3 L (3.5-5.1) mmol/L Chloride 80 L (98-107) mmol/L Carbon Dioxide 46 H* (22-30) mmol/L Glucose 106 H (74-99) mg/dL AST 50 H (14-36) U/L ALT 39 H (4-34) U/L Alkaline Phosphatase 154 H (38-126) U/L
[2024-01-17] MEDS: POTASSIUM CHLORIDE ER 20 MEQ TAB.ER PO SCH (14:11)
[2024-01-17 15:39] VITALS: TEMP 98.4
--- NOTE | 2024-01-17 17:47 | P.PN ---
Progress Note - Text Progress Note Date: 01/17/24 Hospital course: I am rounding for Dr. Josef Carlson January 16, 2024: Sitting at the edge of the bed. Eating lunch. Breathing is unchanged. Some shortness of breath. Decreased edema. On IV Lasix. January 16: Patient remains on IV Lasix. Now on every 12. Significant urine output. For metabolic alkalosis Diamox added. Eating well. Active Medications Acetazolamide (Acetazolamide 250 Mg Tab) 250 mg PO BID [facility] Last Admin: 01/17/24 12:24 Dose: 250 mg Albuterol/Ipratropium (Ipratropium-Albuterol 3 Ml Neb) 3 ml INHALATION RT-QID [facility] Last Admin: 01/17/24 15:17 Dose: 3 ml Aspirin (Aspirin 81 Mg) 81 mg PO DAILY [facility] Last Admin: 01/17/24 08:56 Dose: 81 mg Doxycycline Monohydrate (Doxycycline 100 Mg Cap) 100 mg PO BID [facility]; Protocol Last Admin: 01/17/24 08:55 Dose: 100 mg Furosemide (Furosemide 10 Mg/Ml 4 Ml Vial) 40 mg IV Q12HR [facility] Hydromorphone HCl (Hydromorphone 0.5 Mg/0.5 Ml Syringe) 0.5 mg IM Q6HR PRN PRN Reason: Pain Last Admin: 01/13/24 20:28 Dose: 0.5 mg Hydromorphone HCl (Hydromorphone 0.5 Mg/0.5 Ml Syringe) 0.5 mg IVP Q6HR PRN PRN Reason: Pain Last Admin: 01/16/24 08:41 Dose: 0.5 mg Lorazepam (Lorazepam 2 Mg/Ml Inj) 0.5 mg IV Q6HR PRN PRN Reason: Anxiety Last Admin: 01/16/24 20:28 Dose: 0.5 mg Metolazone (Metolazone 5 Mg Tab) 5 mg PO DAILY@0830 [facility] Last Admin: 01/17/24 08:55 Dose: 5 mg Metoprolol Tartrate (Metoprolol Tartrate 25 Mg Tab) 25 mg PO BID [facility] Last Admin: 01/17/24 08:56 Dose: 25 mg Naloxone HCl (Naloxone 0.4 Mg/Ml 1 Ml Vial) 0.2 mg IV Q2M PRN PRN Reason: Opioid Reversal Nicotine (Nicotine 21mg/24hr Patch) 1 patch TRANSDERM DAILY [facility] Last Admin: 01/17/24 08:56 Dose: 1 patch Sertraline HCl (Sertraline 100 Mg Tab) 100 mg PO BID [facility] Spironolactone (Spironolactone 25 Mg Tab) 25 mg PO DAILY [facility] Last Admin: 01/17/24 12:24 Dose: 25 mg Tramadol HCl (Tramadol 50 Mg Tab) 50 mg PO Q6H PRN PRN Reason: Moderate Pain (Scale 4 to 6) Last Admin: 01/17/24 15:16 Dose: 50 mg Trazodone HCl (Trazodone Hcl 50 Mg Tab) 150 mg PO [facility] Last Admin: 01/16/24 20:28 Dose: 150 mg On examination: VITAL SIGNS: 98.4, 75, 16, 102 x 69, 96% on 2 L GENERAL APPEARANCE: Breathing better, laying in bed tired HEENT: Normal external appearance of nose and ear. Oral cavity normal EYES: Pupils equal. Conjunctiva normal. NECK: JVD not raised. Mass not palpable. RESPIRATORY: Respiratory effort increased. Lungs fair air entry CARDIOVASCULAR: First and second sounds normal. No edema. ABDOMEN: Soft. Liver and spleen not palpable. No tenderness. No mass palpable. PSYCHIATRY: Alert and oriented x3. Mood and affect normal. INVESTIGATIONS, reviewed in the clinical context: Liver ultrasound: Hepatomegaly. Fatty infiltration. January 16: White count 7.1 hemoglobin 10.3 platelets 277 potassium 3.3 bicarb 46 creatinine 0.64 January 15: White count 6.7 hemoglobin 9.6 platelets 267 potassium 3.8 BUN 13 creatinine 0.71 AST 68 ALT 48 Chest x-ray film personally reviewed by me-[January 15] cardiomegaly. Some venous prominence EKG tracing personally reviewed by me-sinus rhythm. Some T wave changes anterolateral leads. 2D echocardiogram: EF 55 to 60%. Assessment plan: -Acute congestive heart failure exacerbation from preserved LV function.: Improving IV Lasix changed to 40 mg every 12.. Being followed by cardiology. Good urine output. Fluid restriction 1500 cc a day -Positive troponin from CHF. No acute coronary syndrome -Paroxysmal atrial fibrillation currently in sinus rhythm. No anticoagulation being followed by cardiology -Essential hypertension Lopressor 25 mg twice daily -Chronic nicotine dependence cigarette smoker Nicotine patch -Hyperlipidemia -Morbid obesity BMI 45.3 Weight loss measures -Hepatic steatosis Follow-up with Dr. Lisset Connors/GI outpatient Continue IV Lasix. Other medications. Discussed with patient.
[2024-01-17] MEDS: SERTRALINE 100 MG TAB PO SCH (20:55)
[2024-01-17] MEDS: FUROSEMIDE 10 MG/ML 4 ML VIAL IV SCH (20:55)
[2024-01-18 09:32] LABS: African American GFR (CKD) 84 (>60 ml/min/1.73 sqM); Blood Urea Nitrogen 19 mg/dL (7-17); Calcium 9.6 mg/dL (8.4-10.2); Chloride 84 mmol/L (98-107); Glucose 115 mg/dL (74-99); Non-African American GFR(CKD) 73 (>60 ml/min/1.73 sqM); Potassium 3.5 mmol/L (3.5-5.1); Sodium 136 mmol/L (137-145)
[2024-01-18 09:39] LABS: Anion Gap 11 mmol/L
[2024-01-18 09:46] LABS: Carbon Dioxide 41 mmol/L (22-30)
[2024-01-18 12:06] VITALS: BP 116/71; PULSE 71; RESP 16
--- NOTE | 2024-01-18 12:36 | P.PN ---
Subjective HISTORY OF PRESENT ILLNESS: The patient is a pleasant 48-year-old female patient with a past medical history significant for obesity and hypertension and dyslipidemia and sleep apnea and also paroxysmal atrial fibrillation by history presented to the hospital complaining of chest discomfort and shortness of breath. The patient stated that for the last week and a half she has been experiencing progressive exertional dyspnea associated with bilateral lower extremities edema. Beside that she has been experiencing intermittent episodes of chest discomfort. She described her discomfort as a pressure in the middle of the chest with no radiat ion to the arms or neck or shoulders or back and no associated symptoms of any presyncope or syncope or sweating or dizziness or lightheadedness. She has been feeling tired and fatigued and has no energy. Beside that she gained about 30 pounds within a week and a half. No history of heart failure or coronary artery disease and she stated that she does not follow-up with any public relations professional on regu lar basis. In the hospital she underwent further workup including D-dimer came in to be abnormal but subsequently CTA of the chest showed no acute abnormalities and also she underwent a chest x-ray showed finding consistent with heart failure. Troponin came in to be abnormal. Beside that she underwent an EKG which showed sinus mechanism with T wave inversion anteriorly definitely new compared to previous EKGs before. The patient had an echo was performed in 2021 and that revealed normal LV systolic function with no significant valvular abnormalities. Her NT proBNP came in to be elevated. When the patient was seen and evaluated this morning she is definitely in overt heart failure and she is sitting at 45 angle and definitely she is more short of breath laying flat in bed. Currently she is on Lasix IV. The examination is remarkable for severe bilateral lower extremities edema and diminished breathing sounds bilaterally and regular rate and rhythm. 01/15/2024 Patient examined this morning at the bedside. She reports mild shortness of breath. Patient denies chest pain or pressure. Patient remains on IV Lasix 40 mg every 12 hours. Patient states that she does not feel like she is urinating a lot. Urine output documented over the last 24 hours is 1.3 L. She continues to report lower extremity edema and abdominal swelling. Echocardiogram completed revealing ejection fraction 55 to 60%, trace to mild TR 01/16/2024 Patient examined this morning at the bedside. Patient states that she feels that she is improving compared to yesterday. She reports improvement in her sh ortness of breath and lower extremity swelling. She now reports a productive cough. She does report that she has been urinating more with the addition of Zaroxolyn. Urine output for the last 24 hours is approximately 2 L. Vital signs are stable. Creatinine today 0.71. 01/17/2024 Patient examined this morning at the bedside. Patient's Lasix was increased to every 8 hours yesterday per primary medicine. Patient CO2 increased to 46 today. Her creatinine remained stable at 0.64. Patient did have over 7 L of urine output for the last 24 hours. 01/18/2024 Patient examined this morning at the bedside. Patient currently denies chest pain or pressure. She states her shortness of breath is significantly improved. Urine output over the last 24 hours is over 3 L. CO2 improved to 41 today. Kidney function remained stable. BUN 19. Creatinine 0.94. PHYSICAL EXAM: VITAL SIGNS: Reviewed. GENERAL: Well-developed in no acute distress. NECK: Supple. No JVD or thyromegaly LUNGS: Respirations even and unlabored. Lungs with mild wheezing noted HEART: Regular rate and rhythm. S1 and S2 heard. EXTREMITIES: Normal range of motion. No clubbing or cyanosis. Peripheral pulses intact. 1+ pitting lower extremity edema ASSESSMENT: Shortness of breath Acute heart failure with preserved EF Mildly elevated troponins, may be secondary to above, possible non-STEMI History of atrial fibrillation per patient, not anticoagulated on an outpatient basis Hypertension Hyperlipidemia Morbid obesity Nicotine dependence Mildly elevated liver enzymes Hypokalemia Contraction alkalosis secondary to diuresis PLAN: Discontinue Diamox Discontinue IV Lasix. Begin Bumex 1 mg twice a day Recommend outpatient sleep study Recommend outpatient surgical evaluation for abdominal hernia Smoking cessation recommended No plans for cardiac catheterization at this time. Will plan for outpatient ischemic workup Patient is stable for discharge home today from a cardiac standpoint She is to follow-up postdischarge with Dr. Irizarry Recommend outpatient BMP in 1 week Nurse practitioner note has been reviewed by physician. Signing provider agrees with the documented findings, assessment, and plan of care documented by [employer] ENGINEERING PROFESSOR as a scribe. Objective - Vital Signs Vital signs: Vital Signs Temp 98.4 F 01/17/24 15:15 Pulse 71 01/18/24 12:05 Resp 16 01/18/24 12:05 BP 116/71 01/18/24 12:05 Pulse Ox 93 L 01/18/24 12:05 FiO2 Intake & Output 01/17/24 01/18/24 01/18/24 18:59 06:59 18:59 Intake Total 1500 Output Total 1999 999 Balance -500 -1000 Weight 115.4 kg Intake: Oral 1500 Output: Urine 1999 999 Other: Voiding Method Toilet Toilet # Voids 1 0 # Bowel Movements 0 - Labs CBC & Chem 7: 01/17/24 08:18 01/18/24 08:36 Labs: Abnormal Lab Results - Last 24 Hours (Table) 01/18/24 Range/Units 08:36 Sodium 136 L (137-145) mmol/L Chloride 84 L (98-107) mmol/L Carbon Dioxide 41 H* (22-30) mmol/L BUN 19 H (7-17) mg/dL Glucose 115 H (74-99) mg/dL
[2024-01-18 14:00] VITALS: BMI 41.1
[2024-01-18] MEDS: BUMETANIDE 1 MG TAB PO SCH (16:01)
--- NOTE | 2024-01-18 19:19 | P.DS ---
Providers Date of admission: 01/13/24 14:20 Expected date of discharge: 01/18/24 Attending physician: Josef Carlson Consults: 01/13/24 14:25 Consult Physician Stat Consulting Provider: Elisa Kelley Consult Reason/Comments: CHF Do you want consulting provider notified?: Yes 01/13/24 17:00 Consult Physician Routine Consulting Provider: Edmund Irizarry Consult Reason/Comments: CHF Do you want consulting provider notified?: Yes [facility] Course: Hospital course: I am rounding for Dr. Josef Carlson January 16, 2024: Sitting at the edge of the bed. Eating lunch. Breathing is unchanged. Some shortness of breath. Decreased edema. On IV Lasix. January 16: Patient remains on IV Lasix. Now on every 12. Significant urine output. For metabolic alkalosis Diamox added. Eating well. January 17: Patient cleared by cardiology for discharge. Doing much better. rollway worker was involved spoke to Rossana. Will require home oxygen. She t ook care of discharge planning including disposition. Medications were reviewed On examination: VITAL SIGNS: Afebrile, 71, 16, 1 1 6% 1, 93% on 2 L GENERAL APPEARANCE: Breathing more comfortable HEENT: Normal external appearance of nose and ear. Oral cavity normal EYES: Pupils equal. Conjunctiva normal. NECK: JVD not raised. Mass not palpable. RESPIRATORY: Respiratory effort better. Lungs fair air entry CARDIOVASCULAR: First and second sounds normal. No edema. ABDOMEN: Soft. Liver and spleen not palpable. No tenderness. No mass palpable. PSYCHIATRY: Alert and oriented x3. Mood and affect normal. INVESTIGATIONS, reviewed in the clinical context: January 17: Potassium 3.5 bicarb 41 creatinine 0.94 Liver ultrasound: Hepatomegaly. Fatty infiltration. January 16: White count 7.1 hemoglobin 10.3 platelets 277 potassium 3.3 bicarb 46 creatinine 0.64 January 15: White count 6.7 hemoglobin 9.6 platelets 267 potassium 3.8 BUN 13 creatinine 0.71 AST 68 ALT 48 Chest x-ray film personally reviewed by me-[January 15] cardiomegaly. Some venous prominence EKG tracing personally reviewed by me-sinus rhythm. Some T wave changes anterolateral leads. 2D echocardiogram: EF 55 to 60%. Assessment plan: -Acute congestive heart failure exacerbation from preserved LV function.: Better IV Lasix changed over to Bumex 1 mg p.o. twice daily for discharge. Aldactone.. Follow-up with cardiology outpatient Fluid restriction 1500 cc a day -Acute on chronic hypoxic respiratory failure from CHF Being discharged on home oxygen 2 L -Positive troponin from CHF. No acute coronary syndrome -Paroxysmal atrial fibrillation currently in sinus rhythm. No anticoagulation being followed by cardiology -Essential hypertension Lopressor 25 mg twice daily -Chronic nicotine dependence cigarette smoker Nicotine patch -Hyperlipidemia -Morbid obesity BMI 45.3 Weight loss measures -Hepatic steatosis Follow-up with Dr. Lisset Connors/GI outpatient -Full code with instructions Disposition: Home Plan - Discharge Summary New Discharge Prescriptions: New Bumetanide [BUMEX] 1 mg PO BID@0900,1600 #60 tab Sertraline [Zoloft] 100 mg PO BID #0 tab Spironolactone [Aldactone] 25 mg PO DAILY #30 tab Aspirin 81 mg PO DAILY tab Nicotine 21Mg/24Hr Patch [Habitrol] 1 patch TRANSDERM DAILY #42 patch Doxycycline [Vibramycin] 100 mg PO BID #6 cap Albuterol Sulfate [Albuterol Sulfate Hfa] 1 puff PO Q4-6H #8.5 gm Budesonide/Formoterol Fumarate [Symbicort 80-4.5 Mcg Inhaler] 1 puff INHALATION BID #1 each Continue traMADol HCL 50 mg PO BID PRN PRN Reason: Pain traZODone HCL 150 mg PO HS Changed Metoprolol Tartrate [Lopressor] 25 mg PO BID #0 Discontinued Furosemide [Lasix] 20 mg PO DAILY 30 Days #30 tab Prazosin HCl 2 mg PO HS Discharge Medication List traMADol HCL 50 mg PO BID PRN 01/25/23 [History] traZODone HCL 150 mg PO HS 01/25/23 [History] Albuterol Sulfate [Albuterol Sulfate Hfa] 1 puff PO Q4-6H #8.5 gm 01/18/24 [Rx] Aspirin 81 mg PO DAILY tab 01/18/24 [Rx] Budesonide/Formoterol Fumarate [Symbicort 80-4.5 Mcg Inhaler] 1 puff INHALATION BID #1 each 01/18/24 [Rx] Bumetanide [BUMEX] 1 mg PO BID@0900,1600 #60 tab 01/18/24 [Rx] Doxycycline [Vibramycin] 100 mg PO BID #6 cap 01/18/24 [Rx] Metoprolol Tartrate [Lopressor] 25 mg PO BID #0 01/18/24 [Rx] Nicotine 21Mg/24Hr Patch [Habitrol] 1 patch TRANSDERM DAILY #42 patch 01/18/24 [Rx] Sertraline [Zoloft] 100 mg PO BID #0 tab 01/18/24 [Rx] Spironolactone [Aldactone] 25 mg PO DAILY #30 tab 01/18/24 [Rx] Follow up Appointment(s)/Referral(s): Aristides Cardona MD [Medical Doctor] - 1 Week (Please call to schedule follow up) Josef Carlson MD [Primary Care Provider] - 1-2 days (Please call to schedule follow up) Yolanda Connors MD [STAFF PHYSICIAN] - 1 Week (Please call to schedule follow up) Patient Instructions/Handouts: Heart Failure (IP) Discharge/Stand Alone Forms: Who Do I Call?, Community Resources, Personal Exercise Teacher Discharge Disposition: HOME SELF-CARE
== END 2024-01-18 17:45 | disposition home or self-care (01) | DRG 194 ==
LOC: EC 11:46 → 3SCARD 14:20
PROVIDERS: ADMIT Family Medicine; ATTEND Family Medicine
PROC: 05HF33Z Insertion of Infusion Device into Left Cephalic Vein, Percutaneous Approach (ICD-10-PCS; principal; 2024-01-17 11:35)
DX: I11.0 Hypertensive heart disease with heart failure (principal); I50.33 Acute on chronic diastolic (congestive) heart failure; I21.4 Non-ST elevation (NSTEMI) myocardial infarction; D68.59 Other primary thrombophilia; Z68.42 Body mass index [BMI] 45.0-49.9, adult; K76.0 Fatty (change of) liver, not elsewhere classified; I07.1 Rheumatic tricuspid insufficiency; I48.0 Paroxysmal atrial fibrillation; I27.29 Other secondary pulmonary hypertension; I25.10 Atherosclerotic heart disease of native coronary artery without angina pectoris; E87.3 Alkalosis; T50.2X5A Adverse effect of carbonic-anhydrase inhibitors, benzothiadiazides and other diuretics, initial encounter; F43.10 Post-traumatic stress disorder, unspecified; F17.210 Nicotine dependence, cigarettes, uncomplicated; E66.01 Morbid (severe) obesity due to excess calories; E87.6 Hypokalemia; E78.5 Hyperlipidemia, unspecified; Z86.711 Personal history of pulmonary embolism; X58.XXXA Exposure to other specified factors, initial encounter; Z71.6 Tobacco abuse counseling; I25.2 Old myocardial infarction; R74.01 Elevation of levels of liver transaminase levels; I50.82 Biventricular heart failure; J44.9 Chronic obstructive pulmonary disease, unspecified; K42.9 Umbilical hernia without obstruction or gangrene; Z79.82 Long term (current) use of aspirin; Z79.899 Other long term (current) drug therapy; Z88.0 Allergy status to penicillin
CPT/HCPCS: 36410; 36415; 71046; 71275; 74177; 76705; 76937; 80048; 80053; 81003; 82607; 82746; 83880; 84145; 84425; 84439; 84443; 84481; 84484; 85025; 85027; 85379; 85610; 85730; 87636; 93005; 93306; 94640; 96365; 96366; 96372; 96375; 99285

== ENCOUNTER 2024-12-30 15:00 | Emergency (ER) | payer OTHER ==
[2024-12-30 15:20] VITALS: RESP 18; TEMP 97.7
--- NOTE | 2024-12-30 15:31 | ED ---
Fall HPI - General Source: patient Mode of arrival: ambulatory Limitations: no limitations - History of Present Illness MD Complaint: fall <Suly Smith - Last Filed: 12/30/24 15:29> <Basilio Ross - Last Filed: 12/31/24 23:43> - General Chief Complaint: Fall Stated Complaint: fell-feet numb Time Seen by Provider: 12/30/24 15:20 - History of Present Illness Initial Comments: Quick Note: This is a 49-year-old female who presents to the emergency department for a fall. Patient states that when she woke up this morning both of her feet were numb, causing her to fall. Currently has pain to the left shoulder and chin. She did hit her head and she denies any loss of consciousness or blood thinner use. States that her feet have been numb before and she is unsure why. (Suly Smith) 49-year-old female presenting for evaluation after a fall. Patient reports that today she fell on some smelly steps. She fell onto her left shoulder and chin and is complaining of shoulder pain. She also reports that she had some numbness in her feet which she states has been an ongoing issue. This is equal bilaterally. No loss of consciousness or blood thinners. No chest pain or difficulty breathing. No abdominal pain. No other extremity injuries. No nausea, vomiting, dizziness, headache, neck pain. (Basilio Ross) - Related Data Home Medications Medication Instructions Recorded Confirmed Ferrous Sulfate [Iron (65 MG 325 mg PO DAILY 12/22/24 12/22/24 Elemental)] Previous Rx's Medication Instructions Recorded Nicotine 21Mg/24Hr Patch [Habitrol] 1 patch TRANSDERM DAILY #42 patch 01/18/24 Bumetanide [Bumex] 1 mg PO DAILY #30 tablet 12/29/24 Gabapentin [Neurontin] 300 mg PO TID 3 Days #90 cap 12/29/24 LORazepam [Ativan] 0.5 mg PO BID PRN #20 tab 12/29/24 Levothyroxine Sodium [Euthyrox] 75 mcg PO DAILY #30 tablet 12/29/24 Metoprolol Tartrate [Lopressor] 50 mg PO BID #60 tab 12/29/24 Pantoprazole [Protonix] 40 mg PO BID #60 tab 12/29/24 Potassium Chloride ER [K-Dur 10] 10 meq PO DAILY #30 tab 12/29/24 Prazosin HCl [Minipress] 2 mg PO HS #30 capsule 12/29/24 Sertraline [Zoloft] 100 mg PO BID #60 tab 12/29/24 predniSONE 0 mg PO DIRECTED #10 tab 12/29/24 traZODone HCL [Desyrel] 50 mg PO TID PRN #90 tab 12/29/24 Allergies Allergy/AdvReac Type Severity Reaction Status Date / Time Penicillins Allergy Unknown Unknown Verified 12/30/24 15:20 Childhood Review of Systems ROS Other: All systems not noted in ROS Statement are negative. <Suly Smith - Last Filed: 12/30/24 15:29> ROS Other: All systems not noted in ROS Statement are negative. <Basilio Ross - Last Filed: 12/31/24 23:43> ROS Statement: Those systems with pertinent positive or pertinent negative responses have been documented in the HPI. Past Medical History Past Medical History: Atrial Fibrillation, Hypertension, Pulmonary Embolus (PE), Thyroid Disorder Additional Past Medical History / Comment(s): Pt states she has an arrythmia (afib), pancreatitis and chronic back and neck pain. Herniated Disk History of Any Multi-Drug Resistant Organisms: CRE, Other MDRO Date of last positivie culture/infection: 07/16/21 MDRO Source:: URINE Past Surgical History: Appendectomy, Orthopedic Surgery Additional Past Surgical History / Comment(s): titanium wrist right, abdominal exploratory open appy, left elbow pin from falling out of tree Past Anesthesia/Blood Transfusion Reactions: No Reported Reaction Past Psychological History: Anxiety, Depression, PTSD Smoking Status: Current every day smoker Past Alcohol Use History: Heavy Past Drug Use History: None Reported - Past Family History Father History Unknown: Yes Family Medical History: Osteoarthritis (OA) <Suly Smith - Last Filed: 12/30/24 15:29> General Exam Limitations: no limitations <Suly Smith - Last Filed: 12/30/24 15:29> Limitations: no limitations General appearance: alert, in no apparent distress Head exam: Present: atraumatic, normocephalic, normal inspection Eye exam: Present: normal appearance, EOMI Neck exam: Present: normal inspection. Absent: tenderness, meningismus Respiratory exam: Present: normal lung sounds bilaterally. Absent: respiratory distress, wheezes, rales, rhonchi, stridor Cardiovascular Exam: Present: regular rate, normal rhythm, normal heart sounds. Absent: systolic murmur, diastolic murmur, rubs, gallop, clicks Left Shoulder Exam: Present: tenderness. Absent: normal inspection, full ROM Vascular: Absent: vascular compromise Neurological exam: Present: alert, oriented X3 Psychiatric exam: Present: normal affect, normal mood Skin exam: Present: warm, dry, normal color <Basilio Ross - Last Filed: 12/31/24 23:43> - General Exam Comments Initial Comments: Visual Physical Exam Vital signs reviewed General: Well-appearing, nontoxic, no acute distress. Head: Normocephalic, atraumatic Eyes: PERRLA, EOMI ENT: Airway patent Chest: Nonlabored breathing Skin: No visual rash, normal skin tone Neuro: Alert and oriented 3 Musculoskeletal: No gross abnormalities (Suly Smith) Course Vital Signs 12/30/24 12/30/24 15:14 19:23 Temperature 97.7 F Pulse Rate 99 103 H Respiratory 18 18 Rate Blood Pressure 133/87 130/89 O2 Sat by Pulse 94 L 97 Oximetry Medical Decision Making <Suly Smith - Last Filed: 12/30/24 15:29> - Lab Data Result diagrams: 12/30/24 16:03 12/30/24 16:03 <Basilio Ross - Last Filed: 12/31/24 23:43> - Medical Decision Making I performed the QuickNote portion of this chart. Signed Suly Smith PA-C. (Suly Smith) This is a previous patient of Dr. Chaves, she will follow-up with his office regarding her fracture Was pt. sent in by a medical professional or institution ([facility], [facility] [facility], urgent care, hospital, or [facility]...) When possible be specific @ -No Did you speak to anyone other than the patient for history (EMS, parent, family, police, friend...)? What history was obtained from this source @ -No Did you review nursing and triage notes (agree or disagree)? Why? @ -I reviewed and agree with nursing and triage notes Were old charts reviewed (outside hosp., previous admission, EMS record, old E KG, old radiological studies, urgent care reports/EKG's, [facility] records)? Report findings @ -No old charts were reviewed Differential Diagnosis (chest pain, altered mental status, abdominal pain women, abdominal pain men, vaginal bleeding, weakness, fever, dyspnea, syncope, headache, dizziness, GI bleed, back pain, seizure, CVA, palpatations, mental health, musculoskeletal)? @ -Differential Musculoskeletal Muscular strain, contusion, ligament sprain, fracture, arthritis, septic arthrit is, bursitis, cellulitis, muscle spasm, nerve compression, DVT, arterial occlusion, herpes zoster, electrolyte abnormality, tumor.... This is not meant to be in all inclusive list EKG interpreted by me (3pts min.). @ -As above X-rays interpreted by me (1pt min.). @ -Patient has not displaced fracture of the greater tuberosity of the left humerus CT interpreted by me (1pt min.). @ -CT shows no acute intracranial process. No acute osseous abnormality of the cervical spine. Mild degenerative disc changes in the mid cervical spine U/S interpreted by me (1pt. min.). @ -None done What testing was considered but not performed or refused? (CT, X-rays, U/S, labs)? Why? @ -None What meds were considered but not given or refused? Why? @ -None Did you discuss the management of the patient with other professionals (professionals i.e. , PA, [employer]ER, lab, RT, psych nurse, addiction social worker, air and water tester, t eacher, finance officer, medical case manager)? Give summary @ -No Was smoking cessation discussed for >3mins.? @ -No Was critical care preformed (if so, how long)? @ -No Were there social determinants of health that impacted care today? How? (Homelessness, low income, unemployed, alcoholism, drug addiction, transportation, low edu. Level, literacy, decrease access to med. care, retirement, rehab)? @ -No Was there de-escalation of care discussed even if they declined (Discuss DNR or withdrawal of care, Hospice)? DNR status @ -No What co-morbidities impacted this encounter? (DM, HTN, Smoking, COPD, CAD, Cancer, CVA, ARF, Chemo, Hep., AIDS, mental health diagnosis, sleep apnea, morbid obesity)? @ -None Was patient admitted / discharged? Hospital course, mention meds given and route, prescriptions, significant lab abnormalities, going to OR and other pertinent info. @ -49-year-old female presenting for evaluation fall. Patient fell on snowy steps today. She hurt her left shoulder. Workup is initiated by triage. X- rays positive for nondisplaced fracture of the greater tuberosity of the left humerus. CT negative for acute intracranial process or cervical spine fracture. White count 16, patient was discharged from the hospital yesterday while being treated for pneumonia. Transaminitis is noted on lab work. She reports bilateral numbness in her feet which has been an ongoing issue. She is educated on today's findings. Placed in a sling. Instructed to follow-up with orthopedics for her shoulder. Follow-up with PCP for her neuropathy. Follow-up with PCP. Report back to ER with any new or worsening symptoms. Discussed return parameters and answered all questions. Patient conveyed verbal understanding and agreed to the plan. I discussed this case in detail with my attending Dr. Whyte Undiagnosed new problem with uncertain prognosis? @ -No Drug Therapy requiring intensive monitoring for toxicity (Heparin, Nitro, Insulin, Cardizem)? @ -No Were any procedures done? @ -No Diagnosis/symptom? @ -Fracture of the greater tuberosity Acute, or Chronic, or Acute on Chronic? @ -Acute Uncomplicated (without systemic symptoms) or Complicated (systemic symptoms)? @ -Uncomplicated Side effects of treatment? @ -No Exacerbation, Progression, or Severe Exacerbation? @ -No Poses a threat to life or bodily function? How? (Chest pain, USA, MD, pneumonia, PE, COPD, DKA, ARF, appy, cholecystitis, CVA, Diverticulitis, Homicidal, Suicidal, threat to staff... and all critical care pts) @ -Potential if the patient does not follow-up with orthopedics (Basilio Ross) - Lab Data Lab Results 12/30/24 12/30/24 Range/Units 16:03 16:03 WBC 16.0 H (3.8-10.6) k/uL RBC 4.88 (3.80-5.40) m/uL Hgb 15.9 (11.4-16.0) gm/dL Hct 48.8 H (34.0-46.0) % MCV 99.9 (80.0-100.0) fL MCH 32.5 (25.0-35.0) pg MCHC 32.5 (31.0-37.0) g/dL RDW 16.8 H (11.5-15.5) % Plt Count 296 (150-450) k/uL MPV 7.9 Neutrophils % 92 % Lymphocytes % 4 % Monocytes % 4 % Eosinophils % 1 % Basophils % 0 % Neutrophils # 14.7 H (1.3-7.7) k/uL Lymphocytes # 0.6 L (1.0-4.8) k/uL Monocytes # 0.6 (0-1.0) k/uL Eosinophils # 0.1 (0-0.7) k/uL Basophils # 0.0 (0-0.2) k/uL Anisocytosis Slight Macrocytosis Slight Sodium 133 L (137-145) mmol/L Potassium 5.1 (3.5-5.1) mmol/L Chloride 96 L (98-107) mmol/L Carbon Dioxide 19 L (22-30) mmol/L Anion Gap 18 mmol/L BUN 40 H (7-17) mg/dL Creatinine 1.00 (0.52-1.04) mg/dL Est GFR (CKD-EPI)AfAm 78 (>60 ml/min/1.73 sqM) Est GFR (CKD-EPI)NonAf 68 (>60 ml/min/1.73 sqM) Glucose 247 H (74-99) mg/dL Calcium 9.2 (8.4-10.2) mg/dL Total Bilirubin 1.0 (0.2-1.3) mg/dL AST 131 H (14-36) U/L ALT 209 H (4-34) U/L Alkaline Phosphatase 90 (38-126) U/L Total Protein 7.9 (6.3-8.2) g/dL Albumin 4.7 (3.5-5.0) g/dL Disposition <Suly Smith - Last Filed: 12/30/24 15:29> Is patient prescribed a controlled substance at d/c from ED?: No Time of Disposition: 19:04 <Basilio Ross - Last Filed: 12/31/24 23:43> Clinical Impression: Greater tuberosity of humerus fracture Disposition: HOME SELF-CARE Condition: Good Instructions (If sedation given, give patient instructions): Arm Fracture in Adults (ED) Additional Instructions: Follow-up with PCP and orthopedics. Report back to ER with any new or worsening symptoms. Referrals: Josef Carlson MD [Primary Care Provider] - 1-2 days Oscar Chaves DO [Doctor of Osteopathic Medicine] - 1-2 days
[2024-12-30 16:24] LABS: Anisocytosis Slight; Basophils % (A) 0 %; Eosinophils # (A) 0.1 k/uL (0-0.7); Eosinophils % (A) 1 %; HCT 48.8 % (34.0-46.0); HGB 15.9 gm/dL (11.4-16.0); Lymphocytes # (A) 0.6 k/uL (1.0-4.8); Lymphocytes % (A) 4 %; MCH 32.5 pg (25.0-35.0); MCHC 32.5 g/dL (31.0-37.0); MCV 99.9 fL (80.0-100.0); Macrocytosis Slight; Mean Platelet Volume 7.9; Monocytes # (A) 0.6 k/uL (0-1.0); Monocytes % (A) 4 %; Neutrophils # (A) 14.7 k/uL (1.3-7.7); Neutrophils % (A) 92 %; Platelet Count 296 k/uL (150-450); RBC 4.88 m/uL (3.80-5.40); RDW 16.8 % (11.5-15.5)
[2024-12-30 16:36] LABS: ALT 209 U/L (4-34); African American GFR (CKD) 78 (>60 ml/min/1.73 sqM); Albumin 4.7 g/dL (3.5-5.0); Anion Gap 18 mmol/L; Blood Urea Nitrogen 40 mg/dL (7-17); Calcium 9.2 mg/dL (8.4-10.2); Carbon Dioxide 19 mmol/L (22-30); Chloride 96 mmol/L (98-107); Glucose 247 mg/dL (74-99); Non-African American GFR(CKD) 68 (>60 ml/min/1.73 sqM); Sodium 133 mmol/L (137-145); Total Protein 7.9 g/dL (6.3-8.2)
[2024-12-30 16:38] LABS: AST 131 U/L (14-36); Alkaline Phosphatase 90 U/L (38-126); Potassium 5.1 mmol/L (3.5-5.1)
--- NOTE | 2024-12-30 16:49 | XR ---
EXAMINATION TYPE: XR shoulder complete LT DATE OF EXAM: 12/30/2024 4:44 PM COMPARISON: None. CLINICAL INDICATION: Female, 49 years old with history of Fall, Pain TECHNIQUE: XR shoulder complete LT view(s) obtained. FINDINGS: The humeral head articulates with the glenoid. The acromio-clavicular junction is normal. There is a nondisplaced fracture of the greater tuberosity of the humerus. No additional fractures identified. A follow up study can be performed 7-10 days from acute trauma for continued pain. MRI can be perfor med if soft tissue evaluation would be of benefit. IMPRESSION: 1. Nondisplaced fracture of the greater tuberosity left humerus. [facility], , 12/30/2024 4:47 PM
--- NOTE | 2024-12-30 17:35 | CT ---
EXAMINATION TYPE: CT brain abrahamine wo con DATE OF EXAM: 12/30/2024 4:59 PM COMPARISON: None. CLINICAL INDICATION: Female, 49 years old with history of Fall, Fall, hit bottom of chin extending ne ck back, pain TECHNIQUE: CT of the brain is performed utilizing 3 mm thick sections through the posterior fossa and 3 mm thick sections through the remaining calvarium. Study is performed within 24 hours of arrival to the hospital. Contrast used: mL of , (none if empty) CT DLP: 1505.7 mGycm, Automated exposure control for dose reduction was used. FINDINGS: No abnormal hyperdensity is present to suggest an acute intracranial hemorrhage. No mass lesion is evident. No acute infarcts are evident. Ventricles and sulci are appropriate for the patient age. Paranasal sinuses and mastoid air cells within the [id number] are clear. Portion of the mandible within the [id number] appears intact. The injury site in the submental reg ion is out of the field of view. IMPRESSIONS: 1. No acute intracranial process. Follow-up MRI can be performed as clinically indicated. CT cervical spine. COMPARISON: None TECHNIQUE: CT of the cervical spine is performed in the axial plane at 2 mm thick sections. Reconstr ucted images in the coronal, and sagittal plane are reviewed on the computer. FINDINGS: No acute fractures are evident. Vertebral body alignment is normal. Degenerative disc changes present C4-5 C5-C6. Endplate spurring is present C5-6 C6-7. This is mild an terior thecal sac compression without AP spinal canal stenosis. Anterior vertebral body spurring is p resent C4-C7. Vertebral body heights are preserved. No spinal canal stenosis is evident. Some right foraminal stenosis from uncovertebral joint hypertrophy is present C2-3. Mild foraminal na rrowing is present C3-4. IMPRESSION: 1. No acute osseous abnormality cervical spine. 2. Mild degenerative disc changes in the mid cervical spine. [facility], , 12/30/2024 5:33 PM
[2024-12-30] MEDS: MORPHINE SULFATE 4 MG/ML SYRINGE IM STA (19:15)
[2024-12-30 19:24] VITALS: BP 130/89; PULSE 103
== END 2024-12-30 19:52 | disposition home or self-care (01) ==
LOC: EC 15:00
DX: S42.255A Nondisplaced fracture of greater tuberosity of left humerus, initial encounter for closed fracture (principal); F17.200 Nicotine dependence, unspecified, uncomplicated; Z88.0 Allergy status to penicillin; W19.XXXA Unspecified fall, initial encounter
CPT/HCPCS: 36415; 80053; 85025; 73030; 72125; 70450; 99284; 96372; J2270

== ENCOUNTER 2025-01-07 16:32 | Inpatient (IN) | payer OTHER ==
[2025-01-07] MEDS ORDERED: RX INFO: IV CONTRAST WAS GIVEN 1 EACH MISC MISCELLANE PRN (18:23)
--- NOTE | 2025-01-07 18:26 | ED ---
General Adult HPI - General Chief complaint: Recheck/Abnormal Lab/Rx Stated complaint: toe discoloration Time Seen by Provider: 01/07/25 17:55 Source: patient, RN notes reviewed Mode of arrival: ambulatory Limitations: no limitations - History of Present Illness Initial comments: Patient is a 49-year-old female presenting to the emergency department with concern for bilateral foot discoloration. Area involved is most of her toes. Patient states she has had mild tingling for 2 weeks. Patient states discomfort started 3 days ago. Patient states discoloration started yesterday. Patient saw her doctor today and was advised to come to the emergency department. Patient was in the hospital just over a week ago for pneumonia. - Related Data Home Medications Medication Instructions Recorded Confirmed Ferrous Sulfate [Iron (65 MG 325 mg PO DAILY 12/22/24 12/22/24 Elemental)] Previous Rx's Medication Instructions Recorded Nicotine 21Mg/24Hr Patch [Habitrol] 1 patch TRANSDERM DAILY #42 patch 01/18/24 Bumetanide [Bumex] 1 mg PO DAILY #30 tablet 12/29/24 Gabapentin [Neurontin] 300 mg PO TID 3 Days #90 cap 12/29/24 LORazepam [Ativan] 0.5 mg PO BID PRN #20 tab 12/29/24 Levothyroxine Sodium [Euthyrox] 75 mcg PO DAILY #30 tablet 12/29/24 Metoprolol Tartrate [Lopressor] 50 mg PO BID #60 tab 12/29/24 Pantoprazole [Protonix] 40 mg PO BID #60 tab 12/29/24 Potassium Chloride ER [K-Dur 10] 10 meq PO DAILY #30 tab 12/29/24 Prazosin HCl [Minipress] 2 mg PO HS #30 capsule 12/29/24 Sertraline [Zoloft] 100 mg PO BID #60 tab 12/29/24 predniSONE 0 mg PO DIRECTED #10 tab 12/29/24 traZODone HCL [Desyrel] 50 mg PO TID PRN #90 tab 12/29/24 Allergies Allergy/AdvReac Type Severity Reaction Status Date / Time Penicillins Allergy Unknown Unknown Verified 01/07/25 16:41 Childhood Review of Systems ROS Statement: Those systems with pertinent positive or pertinent negative responses have been documented in the HPI. ROS Other: All systems not noted in ROS Statement are negative. Constitutional: Denies: fever Eyes: Denies: eye pain ENT: Denies: ear pain Respiratory: Denies: cough Cardiovascular: Denies: chest pain Gastrointestinal: Denies: abdominal pain Musculoskeletal: Denies: back pain Skin: Reports: as per HPI Past Medical History Past Medical History: Atrial Fibrillation, Hypertension, Pulmonary Embolus (PE), Thyroid Disorder Additional Past Medical History / Comment(s): Pt states she has an arrythmia (afib), pancreatitis and chronic back and neck pain. Herniated Disk History of Any Multi-Drug Resistant Organisms: CRE, Other MDRO Date of last positivie culture/infection: 07/16/21 MDRO Source:: URINE Past Surgical History: Appendectomy, Orthopedic Surgery Additional Past Surgical History / Comment(s): titanium wrist right, abdominal exploratory open appy, left elbow pin from falling out of tree Past Anesthesia/Blood Transfusion Reactions: No Reported Reaction Past Psychological History: Anxiety, Depression, PTSD Smoking Status: Current every day smoker Past Alcohol Use History: Heavy Past Drug Use History: None Reported - Past Family History Father History Unknown: Yes Family Medical History: Osteoarthritis (OA) General Exam Limitations: no limitations General appearance: alert Head exam: Present: normocephalic Eye exam: Present: normal appearance ENT exam: Present: normal oropharynx Neck exam: Present: normal inspection Respiratory exam: Present: normal lung sounds bilaterally Cardiovascular Exam: Present: regular rate, normal rhythm, normal heart sounds Expanded Peripheral pulses: 1+: Femoral (R), Femoral (L), Dorsalis Pedis (R), Dorsalis Pedis (L), 2+: Posterior Tibialis (R), Posterior Tibialis (L) GI/Abdominal exam: Present: soft. Absent: tenderness, pulsatile mass Extremities exam: Absent: pedal edema, calf tenderness Neurological exam: Present: alert Psychiatric exam: Present: normal affect, normal mood Skin exam: Present: other (Patient has bluish/blackish discoloration of majority of her distal toes. ) Course Vital Signs 01/07/25 01/07/25 16:37 19:20 Temperature 98.5 F 98.4 F Pulse Rate 82 88 Respiratory 18 19 Rate Blood Pressure 145/93 132/82 O2 Sat by Pulse 96 97 Oximetry EKG Findings - EKG Results: EKG: interpreted by ERMD, sinus rhythm, normal axis, normal QRS, normal ST/T Medical Decision Making - Medical Decision Making Case discussed with Dr. Lynne who does request angiogram. She does not feel heparin is necessary unless there is gross abnormality on angiogram Was pt. sent in by a medical professional or institution (ZANE Prince, DAY HABILITATION SUPERVISOR, urgent care, hospital, or group home...) When possible be specific @ -Patient was sent in by Dr. Carlson office Did you speak to anyone other than the patient for history (EMS, parent, family, police, friend...)? What history was obtained from this source @ -No Did you review nursing and triage notes (agree or disagree)? Why? @ -I reviewed and agree with nursing and triage notes Were old charts reviewed (outside hosp., previous admission, EMS record, old EKG, old radiological studies, urgent care reports/EKG's, group home records)? Report findings @ -Previous admission reviewed Differential Diagnosis (chest pain, altered mental status, abdominal pain women, abdominal pain men, vaginal bleeding, weakness, fever, dyspnea, syncope, headache, dizziness, GI bleed, back pain, seizure, CVA, palpatations, mental health, musculoskeletal)? @ -Differential Weakness: Hypoglycemia, shock, sepsis, hyponatremia, anemia, infection, NC, ETOH, adverse medicine reaction, overdose, stroke, this is not meant to be an all-inclusive list. EKG interpreted by me (3pts min.). @ -As above X-rays interpreted by me (1pt min.). @ -Chest x-ray shows no acute process CT interpreted by me (1pt min.). @ -CT angio lower extremities does not reveal acute occlusion U/S interpreted by me (1pt. min.). @ -None done What testing was considered but not performed or refused? (CT, X-rays, U/S, l abs)? Why? @ -None What meds were considered but not given or refused? Why? @ -Considered heparin however Dr. Lynne does not feel is necessary at this time, see above Did you discuss the management of the patient with other professionals (professionals i.e. ZANE Prince, DAY HABILITATION SUPERVISOR, lab, RT, psych nurse, social media editor, physical education professor, teacher, legal compliance officer, case resource manager)? Give summary @ -Dr. Lynne, see above Case also discussed with Dr. Carlson who will admit his patient. Was smoking cessation discussed for >3mins.? @ -No Was critical care preformed (if so, how long)? @ -No Were there social determinants of health that impacted care today? How? (Homelessness, low income, unemployed, alcoholism, drug addiction, transportation, low edu. Level, literacy, decrease access to med. care, fci, rehab)? @ -No Was there de-escalation of care discussed even if they declined (Discuss DNR or withdrawal of care, Hospice)? DNR status @ -No What co-morbidities impacted this encounter? (DM, HTN, Smoking, COPD, CAD, Cancer, CVA, ARF, Chemo, Hep., AIDS, mental health diagnosis, sleep apnea, morbid obesity)? @ -None Was patient admitted / discharged? Hospital course, mention meds given and route, prescriptions, significant lab abnormalities, going to OR and other pertinent info. @ -Patient presents with painful discoloration of majority of her distal toes. Concern for arterial occlusion not found on CT scan. Patient will need further evaluation. Patient will be admitted with vascular consult. Admission orders written. Patient reevaluated and updated. Undiagnosed new problem with uncertain prognosis? @ -Blue toes with discomfort, etiology unclear and patient will need further evaluation Drug Therapy requiring intensive monitoring for toxicity (Heparin, Nitro, Insulin, Cardizem)? @ -No Were any procedures done? @ -No Diagnosis/symptom? @ -Vasculitis syndrome Acute, or Chronic, or Acute on Chronic? @ -Acute Uncomplicated (without systemic symptoms) or Complicated (systemic symptoms)? @ -Default Side effects of treatment? @ -No Exacerbation, Progression, or Severe Exacerbation? @ -No Poses a threat to life or bodily function? How? (Chest pain, USA, NC, pneumonia, PE, COPD, DKA, ARF, appy, cholecystitis, CVA, Diverticulitis, Homicidal, Suicidal, threat to staff... and all critical care pts) @ -Threat to functionality of toes - Lab Data Result diagrams: 01/07/25 18:36 01/07/25 18:36 Lab Results 01/07/25 01/07/25 01/07/25 Range/Units 18:36 18:36 18:36 WBC 14.0 H (3.8-10.6) k/uL RBC 3.81 (3.80-5.40) m/uL Hgb 12.3 D (11.4-16.0) gm/dL Hct 38.5 (34.0-46.0) % MCV 101.1 H (80.0-100.0) fL MCH 32.2 (25.0-35.0) pg MCHC 31.8 (31.0-37.0) g/dL RDW 16.5 H (11.5-15.5) % Plt Count 211 (150-450) k/uL MPV 7.6 Neutrophils % 92 % Lymphocytes % 4 % Monocytes % 2 % Eosinophils % 1 % Basophils % 0 % Neutrophils # 12.9 H (1.3-7.7) k/uL Lymphocytes # 0.6 L (1.0-4.8) k/uL Monocytes # 0.3 (0-1.0) k/uL Eosinophils # 0.2 (0-0.7) k/uL Basophils # 0.0 (0-0.2) k/uL Anisocytosis Slight Macrocytosis Slight PT 9.8 L (10.0-12.5) sec INR 0.9 (<1.2) APTT 22.1 (22.0-30.0) sec Sodium 137 (137-145) mmol/L Potassium 4.4 (3.5-5.1) mmol/L Chloride 99 (98-107) mmol/L Carbon Dioxide 29 (22-30) mmol/L Anion Gap 9 mmol/L BUN 18 H (7-17) mg/dL Creatinine 0.82 (0.52-1.04) mg/dL Est GFR (CKD-EPI)AfAm >90 (>60 ml/min/1.73 sqM) Est GFR (CKD-EPI)NonAf 86 (>60 ml/min/1.73 sqM) Glucose 150 H (74-99) mg/dL Lactic Ac Sepsis Rflx Plasma Lactic Acid [place] (0.7-2.0) mmol/L Calcium 9.4 (8.4-10.2) mg/dL Magnesium 1.5 L (1.6-2.3) mg/dL Total Bilirubin 0.3 (0.2-1.3) mg/dL AST 38 H (14-36) U/L ALT 67 H (4-34) U/L Alkaline Phosphatase 105 (38-126) U/L Troponin I (0.000-0.034) ng/mL Total Protein 6.3 (6.3-8.2) g/dL Albumin 3.7 (3.5-5.0) g/dL 01/07/25 01/07/25 01/07/25 Range/Units 18:36 18:36 19:19 WBC (3.8-10.6) k/uL RBC (3.80-5.40) m/uL Hgb (11.4-16.0) gm/dL Hct (34.0-46.0) % MCV (80.0-100.0) fL MCH (25.0-35.0) pg MCHC (31.0-37.0) g/dL RDW (11.5-15.5) % Plt Count (150-450) k/uL MPV Neutrophils % % Lymphocytes % % Monocytes % % Eosinophils % % Basophils % % Neutrophils # (1.3-7.7) k/uL Lymphocytes # (1.0-4.8) k/uL Monocytes # (0-1.0) k/uL Eosinophils # (0-0.7) k/uL Basophils # (0-0.2) k/uL Anisocytosis Macrocytosis PT (10.0-12.5) sec INR (<1.2) APTT (22.0-30.0) sec Sodium (137-145) mmol/L Potassium (3.5-5.1) mmol/L Chloride (98-107) mmol/L Carbon Dioxide (22-30) mmol/L Anion Gap mmol/L BUN (7-17) mg/dL Creatinine (0.52-1.04) mg/dL Est GFR (CKD-EPI)AfAm (>60 ml/min/1.73 sqM) Est GFR (CKD-EPI)NonAf (>60 ml/min/1.73 sqM) Glucose (74-99) mg/dL Lactic Ac Sepsis Rflx Y Plasma Lactic Acid [place] 2.5 H* (0.7-2.0) mmol/L Calcium (8.4-10.2) mg/dL Magnesium (1.6-2.3) mg/dL Total Bilirubin (0.2-1.3) mg/dL AST (14-36) U/L ALT (4-34) U/L Alkaline Phosphatase (38-126) U/L Troponin I <0.012 (0.000-0.034) ng/mL Total Protein (6.3-8.2) g/dL Albumin (3.5-5.0) g/dL 01/07/25 Range/Units 21:30 WBC (3.8-10.6) k/uL RBC (3.80-5.40) m/uL Hgb (11.4-16.0) gm/dL Hct (34.0-46.0) % MCV (80.0-100.0) fL MCH (25.0-35.0) pg MCHC (31.0-37.0) g/dL RDW (11.5-15.5) % Plt Count (150-450) k/uL MPV Neutrophils % % Lymphocytes % % Monocytes % % Eosinophils % % Basophils % % Neutrophils # (1.3-7.7) k/uL Lymphocytes # (1.0-4.8) k/uL Monocytes # (0-1.0) k/uL Eosinophils # (0-0.7) k/uL Basophils # (0-0.2) k/uL Anisocytosis Macrocytosis PT (10.0-12.5) sec INR (<1.2) APTT (22.0-30.0) sec Sodium (137-145) mmol/L Potassium (3.5-5.1) mmol/L Chloride (98-107) mmol/L Carbon Dioxide (22-30) mmol/L Anion Gap mmol/L BUN (7-17) mg/dL Creatinine (0.52-1.04) mg/dL Est GFR (CKD-EPI)AfAm (>60 ml/min/1.73 sqM) Est GFR (CKD-EPI)NonAf (>60 ml/min/1.73 sqM) Glucose (74-99) mg/dL Lactic Ac Sepsis Rflx Plasma Lactic Acid [place] 1.5 (0.7-2.0) mmol/L Calcium (8.4-10.2) mg/dL Magnesium (1.6-2.3) mg/dL Total Bilirubin (0.2-1.3) mg/dL AST (14-36) U/L ALT (4-34) U/L Alkaline Phosphatase (38-126) U/L Troponin I (0.000-0.034) ng/mL Total Protein (6.3-8.2) g/dL Albumin (3.5-5.0) g/dL Disposition Clinical Impression: Vasculitis Disposition: ADMITTED IP TO THIS HOSP Is patient prescribed a controlled substance at d/c from ED?: No Referrals: Josef Carlson MD [Primary Care Provider] - 1-2 days Time of Disposition: 22:18
[2025-01-07 18:49] LABS: Anisocytosis Slight; Basophils % (A) 0 %; Eosinophils # (A) 0.2 k/uL (0-0.7); Eosinophils % (A) 1 %; HCT 38.5 % (34.0-46.0); Lymphocytes # (A) 0.6 k/uL (1.0-4.8); Lymphocytes % (A) 4 %; MCH 32.2 pg (25.0-35.0); MCHC 31.8 g/dL (31.0-37.0); MCV 101.1 fL (80.0-100.0); Macrocytosis Slight; Mean Platelet Volume 7.6; Monocytes # (A) 0.3 k/uL (0-1.0); Monocytes % (A) 2 %; Neutrophils # (A) 12.9 k/uL (1.3-7.7); Neutrophils % (A) 92 %; Platelet Count 211 k/uL (150-450); RBC 3.81 m/uL (3.80-5.40); RDW 16.5 % (11.5-15.5)
[2025-01-07 19:00] LABS: ALT 67 U/L (4-34); AST 38 U/L (14-36); African American GFR (CKD) >90 (>60 ml/min/1.73 sqM); Albumin 3.7 g/dL (3.5-5.0); Alkaline Phosphatase 105 U/L (38-126); Anion Gap 9 mmol/L; Blood Urea Nitrogen 18 mg/dL (7-17); Calcium 9.4 mg/dL (8.4-10.2); Carbon Dioxide 29 mmol/L (22-30); Chloride 99 mmol/L (98-107); Glucose 150 mg/dL (74-99); Magnesium 1.5 mg/dL (1.6-2.3); Non-African American GFR(CKD) 86 (>60 ml/min/1.73 sqM); Potassium 4.4 mmol/L (3.5-5.1); Sodium 137 mmol/L (137-145); Total Bilirubin 0.3 mg/dL (0.2-1.3); Total Protein 6.3 g/dL (6.3-8.2)
[2025-01-07] MEDS: HYDROmorphone 1 MG/ML 1 ML SYRINGE IVP STA ×2 (19:09→23:14)
[2025-01-07 19:20] LABS: HGB 12.3 gm/dL (11.4-16.0)
[2025-01-07 19:24] LABS: INR 0.9 (<1.2); Partial Thromboplastin Time 22.1 sec (22.0-30.0); Prothrombin Time 9.8 sec (10.0-12.5)
--- NOTE | 2025-01-07 19:27 | XR ---
EXAMINATION TYPE: XR chest 2V DATE OF EXAM: 01/07/2025 7:21 PM COMPARISON: Chest radiographs from 12/21/2024, CTA chest 12/21/2024. TECHNIQUE: XR chest 2V Frontal and lateral views of the chest. CLINICAL INDICATION:Female, 49 years old with history of Weakness; FINDINGS: Lungs/Pleura: There is no evidence of pleural effusion, focal consolidation, or pneumothorax. Pulmonary vascularity: Unremarkable. Heart/mediastinum: Cardiomediastinal silhouette is enlarged and stable. Musculoskeletal: No acute osseous pathology. IMPRESSION: 1. No acute cardiopulmonary disease/process. 2. Cardiomegaly. [facility], , 01/07/2025 7:25 PM
--- NOTE | 2025-01-07 21:48 | CT ---
EXAMINATION TYPE: CT angio abd aorta w/Runoff CT DLP: 3007.4 mGycm, Automated exposure control for dose reduction was used. DATE OF EXAM: 01/07/2025 8:47 PM COMPARISON: CT abdomen and pelvis 01/13/2024 CLINICAL INDICATION:Female, 49 years old with history of ischemia; blue toes TECHNIQUE: Multiple thin slice sub-millimeter images were obtained through the abdomen, pelvis, and l ower extremities before and after administration of contrast. Patient was given Isovue 370, 100 cc i ntravenously. 3-D reconstructed images and maximum intensity projection images were obtained of the arterial vasculature. FINDINGS: CTA Abdomen and pelvis: The abdominal aorta does not demonstrate aneurysmal dilatation. Minimal athe rosclerotic plaquing is identified within the abdominal aorta. No evidence for intramural hematoma or dissection. The origins of the superior mesenteric artery, renal arteries, inferior mesenteric arter y, and celiac axis are patent. The iliac vessels are normal in morphology. CTA Lower extremities: Right: The common femoral and superficial femoral arteries are patent. The popliteal artery is patent . Anterior and posterior tibial arteries as well as the peroneal artery are patent. Anterior and post erior tibial arteries cross the ankle. Left: The common femoral and superficial femoral arteries are patent. The popliteal artery is patent. Anterior and posterior tibial arteries as well as the peroneal artery are patent. Anterior and poste rior tibial arteries cross the ankle. VISCERA: The liver, spleen, adrenal glands, kidneys, pancreas, and gallbladder are not optimally enha nced due the arterial phase utilized. LIVER: Unremarkable GALLBLADDER AND BILE DUCTS: Unremarkable. PANCREAS: Unremarkable. SPLEEN: Unremarkable. ADRENAL GLANDS: Unremarkable. KIDNEYS AND URETERS: No evidence of hydronephrosis or renal calculus. The kidneys enhance symmetrical ly. PELVIS BLADDER: Unremarkable REPRODUCTIVE: Unremarkable. ABDOMEN & PELVIS STOMACH AND BOWEL: Stomach and duodenum are unremarkable. Scattered sigmoid diverticulosis without ev idence for acute diverticulitis. No evidence of bowel obstruction. PERITONEUM: No evidence of pneumoperitoneum or free fluid. MUSCULOSKELETAL: No acute osseous abnormalities. Remote healed left posterior ninth and 10th rib frac tures. Superior endplate Schmorl's node involving the L2 vertebral body. Mild multilevel degenerative disc disease. Benign bone island within the left talus. LYMPH NODES: No evidence for lymphadenopathy. SOFT TISSUE/ABDOMINAL WALL: Small fat filled umbilical hernia. Ventral epigastric wall hernia contain ing nonobstructive transverse colon. Mild bilateral lower extremity subcutaneous edema. LOWER CHEST: Mild cardiomegaly. Visualized lung bases are clear. IMPRESSION 1. No evidence of vascular occlusion or significant atherosclerotic disease. 2. At least two vessels are seen crossing the ankle joint bilaterally. 3. Epigastric ventral hernia containing nonobstructed transverse colon. 4. Sigmoid diverticulosis without evidence for acute diverticulitis. [facility], , 01/07/2025 9:26 PM
[2025-01-07] MEDS ORDERED: ACETAMINOPHEN TAB 325 MG TAB PO PRN (22:18)
[2025-01-07] MEDS ORDERED: NALOXONE 0.4 MG/ML 1 ML VIAL IV PRN (22:18)
[2025-01-07] MEDS: SODIUM CHLORIDE 0.9% 1,000 ML IV SCH (23:13)
[2025-01-08 00:26] LABS: C Reactive Protein 5.1 mg/dL (<1.0); Creatine Kinase 142 U/L (30-135)
[2025-01-08] MEDS: MAGNESIUM OXIDE 400 MG TAB PO SCH (02:03)
[2025-01-08] MEDS: methylPREDNISolone SOD SUCCI 40 MG/ML 1 ML VIAL IV SCH (02:03)
--- NOTE | 2025-01-08 03:38 | HP ---
HISTORY AND PHYSICAL Mechelle Beti is a 49-year-old white female, who is here for bilateral foot discoloration for most of her toes, possible ischemic arterial obstruction versus early gangrene, who was admitted, recently treated for respiratory failure, pneumonia, COPD, asthma. She has a history of alcohol abuse, recent alcohol intoxication, bilateral pneumonia, COPD, asthma. ALLERGIES: Penicillin. REVIEW OF SYSTEMS: 14-point review of systems is otherwise negative. FAMILY HISTORY: Father with osteoarthritis. Mother, heart disease. PHYSICAL EXAMINATION: GI: Distended, obesity. CARDIOVASCULAR: S1, S2. LUNGS: Transmitted upper airway sounds. HEMATOLOGY: Negative Homans. PSYCH: Fair mood and affect. NEUROLOGIC: Alert and oriented x3. LABORATORY DATA: White count is 14, hemoglobin is 12.3 and magnesium level 1.5. ASSESSMENT: 1. Acute vasculitis versus gangrene. 2. Alcoholism. 3. Recent pneumonia. 4. Chronic obstructive pulmonary disease. 5. Asthma. 6. Hypoxemia. 7. Respiratory distress. Please see further orders. Treat her with oxygen and breathing treatments. Prognosis guarded. MMODL / IJN: [id number] /
[2025-01-08] MEDS: HYDROmorphone 1 MG/ML 1 ML SYRINGE IVP PRN (04:08)
[2025-01-08 04:28] LABS: Anisocytosis Slight; Basophils % (A) 0 %; Eosinophils # (A) 0.1 k/uL (0-0.7); Eosinophils % (A) 1 %; HCT 38.9 % (34.0-46.0); HGB 12.2 gm/dL (11.4-16.0); Hypochromasia Slight; Lymphocytes # (A) 0.9 k/uL (1.0-4.8); Lymphocytes % (A) 8 %; MCH 32.4 pg (25.0-35.0); MCHC 31.5 g/dL (31.0-37.0); Macrocytosis Moderate; Mean Platelet Volume 7.6; Monocytes # (A) 0.3 k/uL (0-1.0); Monocytes % (A) 3 %; Neutrophils # (A) 10.7 k/uL (1.3-7.7); Neutrophils % (A) 89 %; Platelet Count 191 k/uL (150-450); RBC 3.77 m/uL (3.80-5.40); RDW 16.7 % (11.5-15.5)
[2025-01-08 04:49] LABS: ALT 68 U/L (4-34); AST 34 U/L (14-36); African American GFR (CKD) >90 (>60 ml/min/1.73 sqM); Albumin 3.8 g/dL (3.5-5.0); Alkaline Phosphatase 116 U/L (38-126); Anion Gap 8 mmol/L; Blood Urea Nitrogen 20 mg/dL (7-17); Calcium 9.7 mg/dL (8.4-10.2); Carbon Dioxide 33 mmol/L (22-30); Chloride 96 mmol/L (98-107); Glucose 169 mg/dL (74-99); Non-African American GFR(CKD) >90 (>60 ml/min/1.73 sqM); Potassium 4.3 mmol/L (3.5-5.1); Sodium 137 mmol/L (137-145); Total Bilirubin 0.4 mg/dL (0.2-1.3); Total Protein 6.5 g/dL (6.3-8.2)
[2025-01-08] MEDS: LEVOTHYROXINE 75 MCG TAB PO SCH (05:34)
[2025-01-08] MEDS: IPRATROPIUM-ALBUTEROL 3 ML NEB INHALATION SCH (08:21)
[2025-01-08 08:39] LABS: Rheumatoid Factor, Qnt <15 IU/mL (0-15)
[2025-01-08] MEDS: POTASSIUM CHLORIDE ER 10 MEQ TAB.ER.PRT PO SCH (09:23)
[2025-01-08] MEDS: FERROUS SULFATE 325 MG TAB PO SCH (09:23)
[2025-01-08] MEDS: SERTRALINE 100 MG TAB PO SCH (09:23)
[2025-01-08] MEDS: BUMETANIDE 1 MG TAB PO SCH (09:24)
[2025-01-08] MEDS: GABAPENTIN 300 MG CAP PO SCH (09:24)
[2025-01-08] MEDS: PANTOPRAZOLE 40 MG TABLET PO SCH (09:24)
[2025-01-08] MEDS: METOPROLOL TARTRATE 50 MG TAB PO SCH (09:24)
[2025-01-08] MEDS: NICOTINE 21MG/24HR PATCH TRANSDERM SCH (09:25)
--- NOTE | 2025-01-08 11:03 | US ---
EXAMINATION TYPE: US arterial LE single level DATE OF EXAM: 01/08/2025 10:50 AM COMPARISONS: CLINICAL INDICATION: Female, 49 years old with history of Ischemic toes, ABIs with toe brachial indic es; Blue toes. Right big toe and left 2nd and 3rd big toe. TECHNIQUE: Systolic pressures were taken of the upper and lower extremity arteries with ankle-brachia l indices and toe brachial indices calculated bilaterally. History of: Smoker: Current Smoker Hypertension: Yes Diabetic: No Hyperlipidemia: No TIA/CVA: No Previous Vascular Surgery: No CAD: Yes [place]: Yes Vascular Ulcers: No Claudication: No Gangrene: blue toes FINDINGS: Doppler Waveforms: Right: Left: Brachial Artery systolic pressure: Right: Deferred Left: 113 Posterior Tibial artery systolic pressure: Right: 162 Left: 187 Dorsalis Pedis artery systolic pressure: Right: 185 Left: 176 Toe artery systolic pressure: Right: 0.0 Left: 81 Ankle-Brachial Indices: Right: 1.6 Left: 1.7 Toe Brachial Indices: Right: Unable to obtain. Left: 0.7 (Normal > 0.6; Mild 0.35 - 0.59, Moderate 0.12 - 0.34, Severe <0.12) IMPRESSION: No flow identified in the right digital artery. [facility], , 01/08/2025 11:00 AM
--- NOTE | 2025-01-08 12:15 | P.GSCN ---
History of Present Illness Consult date: 01/08/25 Reason for Consult: Vasculitis type syndrome Requesting physician: Sherman Barrientos History of present illness: This a pleasant 49-year-old female who presented to the emergency department directed by her PCP Dr. Josef Carlson for discoloration of her toes. Her past medical history includes recent diagnosis of pneumonia which she was hospitalized for, smoker, previous alcohol abuse, obesity, atrial fibrillation, hypertension, pulmonary embolism, thyroid disorder, previous pancreatitis and chronic back pain. Vascular surgery was consulted for vasculitis syndrome. Patient states she was recently hospitalized with pneumonia and during that hospitalization she started having numbness and tingling in her fingertips and in her feet and toes which she states started on December 30. Since her discharge she continued to have numbness and tingling. She had a follow-up with her primary care physician on Monday during which time she states she had not noticed any change in colors in her toes. Then Monday evening into Monday she had noticed that she had change in her color of her toes that they were turning purple and black. Her PCP directed her to come into the emergency department for further evaluation. Patient states thank you she recently quit smoking about 2 weeks ago when she was hospitalized for her pneumonia prior to that she was smoking about a half a pack per day. She had many years of heavy alcohol use which she was drinking daily but states that she has not had anything to drink in about a year. She is not on any anticoagulation. She denies any injuries to her feet no injuries to her upper extremities. She had a CT angiogram abdomen aorta with runoff as part of her workup with no evidence of vascular occlusion or significant arthrosclerotic disease. She states she is also having lower extremity swelling left greater than right. She does have discomfort in her toes as well as the numbness and tingling. Review of Systems A 14 point review systems was completed all pertinent positives and negatives as stated in the HPI. Past Medical History Past Medical History: Atrial Fibrillation, Hypertension, Pulmonary Embolus (PE), Thyroid Disorder Additional Past Medical History / Comment(s): Pt states she has an arrythmia (afib), pancreatitis and chronic back and neck pain. Herniated Disk History of Any Multi-Drug Resistant Organisms: CRE, Other MDRO Year Discovered:: 07/16/21 MDRO Source:: URINE Past Surgical History: Appendectomy, Orthopedic Surgery Additional Past Surgical History / Comment(s): titanium wrist right, abdominal exploratory open appy, left elbow pin from falling out of tree Past Anesthesia/Blood Transfusion Reactions: No Reported Reaction Past Psychological History: Anxiety, Depression, PTSD Smoking Status: Current every day smoker Past Alcohol Use History: Heavy Past Drug Use History: None Reported - Past Family History Father History Unknown: Yes Family Medical History: Osteoarthritis (OA) Medications and Allergies Home Medications Medication Instructions Recorded Confirmed Type Nicotine 21Mg/24Hr Patch [Habitrol] 1 patch TRANSDERM DAILY #42 patch 01/18/24 01/08/25 Rx Ferrous Sulfate [Iron (65 MG 325 mg PO DAILY 12/22/24 01/08/25 History Elemental)] Bumetanide [Bumex] 1 mg PO DAILY #30 tablet 12/29/24 01/08/25 Rx Gabapentin [Neurontin] 300 mg PO TID 3 Days #90 cap 12/29/24 01/08/25 Rx LORazepam [Ativan] 0.5 mg PO BID PRN #20 tab 12/29/24 01/08/25 Rx Levothyroxine Sodium [Euthyrox] 75 mcg PO DAILY #30 tablet 12/29/24 01/08/25 Rx Metoprolol Tartrate [Lopressor] 50 mg PO BID #60 tab 12/29/24 01/08/25 Rx Pantoprazole [Protonix] 40 mg PO BID #60 tab 12/29/24 01/08/25 Rx Prazosin HCl [Minipress] 2 mg PO HS #30 capsule 12/29/24 01/08/25 Rx Sertraline [Zoloft] 100 mg PO BID #60 tab 12/29/24 01/08/25 Rx traZODone HCL [Desyrel] 50 mg PO TID PRN #90 tab 12/29/24 01/08/25 Rx Budesonide/Formoterol Fumarate 2 puff INHALATION RT-BID 01/08/25 01/08/25 History [Symbicort 160-4.5 Mcg Inhaler] HYDROcodone/APAP 7.5-325MG [[place] 1 tab PO Q12H 01/08/25 01/08/25 History 7.5-325] Potassium Citrate [Urocit-K ER] 15 meq PO PC-BID 01/08/25 01/08/25 History Umeclidinium [place] [Incruse 1 puff INHALATION RT-DAILY 01/08/25 01/08/25 History Ellipta] Allergies Allergy/AdvReac Type Severity Reaction Status Date / Time Penicillins Allergy Unknown Unknown Verified 01/08/25 09:42 Childhood Surgical - Exam Vital Signs Temp Pulse Resp BP Pulse Ox 98.5 F 82 18 145/93 96 01/07/25 16:37 01/07/25 16:37 01/07/25 16:37 01/07/25 16:37 01/07/25 16:37 General appearance: The patient is alert, oriented, appears in no acute distress. Obese. HET: Head is normocephalic and atraumatic. Pupils are equal and reactive. Neck: Supple. Heart: Regular. Lungs: Equal expansion, normal respiratory effort. Abdomen: Soft, nontender, nondistended. Extremities: Palpable bilateral radial pulses. Bilateral hands and fingertips warm to the touch, no discoloration noted with good capillary refill. Bilateral lower extremities with swelling, left greater than right. Palpable PT pulses, palpable DP pulses however more faint likely secondary to swelling. Right foot distal tip of great toe with necrotic tissue, second and third toes purple and blanched, fifth toe with necrotic tissue as well as dark areas on plantar aspect of right foot. Left foot second and third toe with ischemic tissue and area of dark skin on the plantar aspect Neurological: No focal deficits. Alert and oriented. Results - Labs 01/08/25 03:49 01/08/25 03:49 Abnormal Lab Results - Last 24 Hours (Table) 01/07/25 01/07/25 01/07/25 Range/Units 18:36 18:36 18:36 WBC 14.0 H (3.8-10.6) k/uL RBC (3.80-5.40) m/uL MCV 101.1 H (80.0-100.0) fL RDW 16.5 H (11.5-15.5) % Neutrophils # 12.9 H (1.3-7.7) k/uL Lymphocytes # 0.6 L (1.0-4.8) k/uL PT 9.8 L (10.0-12.5) sec Chloride (98-107) mmol/L Carbon Dioxide (22-30) mmol/L BUN 18 H (7-17) mg/dL Glucose 150 H (74-99) mg/dL Plasma Lactic Acid [place] (0.7-2.0) mmol/L Magnesium 1.5 L (1.6-2.3) mg/dL AST 38 H (14-36) U/L ALT 67 H (4-34) U/L Creatine Kinase (30-135) U/L C-Reactive Protein (<1.0) mg/dL 01/07/25 01/07/25 01/08/25 Range/Units 18:36 23:38 03:49 WBC 12.0 H (3.8-10.6) k/uL RBC 3.77 L (3.80-5.40) m/uL MCV 103.0 H (80.0-100.0) fL RDW 16.7 H (11.5-15.5) % Neutrophils # 10.7 H (1.3-7.7) k/uL Lymphocytes # 0.9 L (1.0-4.8) k/uL PT (10.0-12.5) sec Chloride (98-107) mmol/L Carbon Dioxide (22-30) mmol/L BUN (7-17) mg/dL Glucose (74-99) mg/dL Plasma Lactic Acid [place] 2.5 H* (0.7-2.0) mmol/L Magnesium (1.6-2.3) mg/dL AST (14-36) U/L ALT (4-34) U/L Creatine Kinase 142 H (30-135) U/L C-Reactive Protein 5.1 H (<1.0) mg/dL 01/08/25 Range/Units 03:49 WBC (3.8-10.6) k/uL RBC (3.80-5.40) m/uL MCV (80.0-100.0) fL RDW (11.5-15.5) % Neutrophils # (1.3-7.7) k/uL Lymphocytes # (1.0-4.8) k/uL PT (10.0-12.5) sec Chloride 96 L (98-107) mmol/L Carbon Dioxide 33 H (22-30) mmol/L BUN 20 H (7-17) mg/dL Glucose 169 H (74-99) mg/dL Plasma Lactic Acid [place] (0.7-2.0) mmol/L Magnesium (1.6-2.3) mg/dL AST (14-36) U/L ALT 68 H (4-34) U/L Creatine Kinase (30-135) U/L C-Reactive Protein (<1.0) mg/dL Diabetes panel 01/07/25 01/08/25 Range/Units 18:36 03:49 Sodium 137 137 (137-145) mmol/L Potassium 4.4 4.3 (3.5-5.1) mmol/L Chloride 99 96 L (98-107) mmol/L Carbon Dioxide 29 33 H (22-30) mmol/L BUN 18 H 20 H (7-17) mg/dL Creatinine 0.82 0.73 (0.52-1.04) mg/dL Glucose 150 H 169 H (74-99) mg/dL Calcium 9.4 9.7 (8.4-10.2) mg/dL AST 38 H 34 (14-36) U/L ALT 67 H 68 H (4-34) U/L Alkaline Phosphatase 105 116 (38-126) U/L Total Protein 6.3 6.5 (6.3-8.2) g/dL Albumin 3.7 3.8 (3.5-5.0) g/dL Calcium panel 01/07/25 01/08/25 Range/Units 18:36 03:49 Calcium 9.4 9.7 (8.4-10.2) mg/dL Albumin 3.7 3.8 (3.5-5.0) g/dL Pituitary panel 01/07/25 01/08/25 Range/Units 18:36 03:49 Sodium 137 137 (137-145) mmol/L Potassium 4.4 4.3 (3.5-5.1) mmol/L Chloride 99 96 L (98-107) mmol/L Carbon Dioxide 29 33 H (22-30) mmol/L BUN 18 H 20 H (7-17) mg/dL Creatinine 0.82 0.73 (0.52-1.04) mg/dL Glucose 150 H 169 H (74-99) mg/dL Calcium 9.4 9.7 (8.4-10.2) mg/dL Adrenal panel 01/07/25 01/08/25 Range/Units 18:36 03:49 Sodium 137 137 (137-145) mmol/L Potassium 4.4 4.3 (3.5-5.1) mmol/L Chloride 99 96 L (98-107) mmol/L Carbon Dioxide 29 33 H (22-30) mmol/L BUN 18 H 20 H (7-17) mg/dL Creatinine 0.82 0.73 (0.52-1.04) mg/dL Glucose 150 H 169 H (74-99) mg/dL Calcium 9.4 9.7 (8.4-10.2) mg/dL Total Bilirubin 0.3 0.4 (0.2-1.3) mg/dL AST 38 H 34 (14-36) U/L ALT 67 H 68 H (4-34) U/L Alkaline Phosphatase 105 116 (38-126) U/L Total Protein 6.3 6.5 (6.3-8.2) g/dL Albumin 3.7 3.8 (3.5-5.0) g/dL - Imaging Comments: CT angio abdomen aorta with runoff reports no evidence of vascular occlusion or significant arthrosclerotic disease. At least 2 vessels are seen crossing the ankle joint bilaterally. Epigastric ventral hernia containing nonobstructed transverse colon. Sigmoid diverticulosis without evidence for acute div erticulitis. Assessment and Plan Assessment: 1. Ischemic changes to bilateral toes likely microvascular possible Buerger's disease secondary to smoking 2. Numbness and tingling to fingertips and feet 3. Nicotine dependence 4. Former alcohol abuse 5. Reported history of atrial fibrillation 6. History of pulmonary embolism Plan: 1. Will order ABIs with toe brachial indices 2. Recommend complete smoking cessation 3. Further recommendations forthcoming based on clinical course 4. Rest of medical management per primary medical team Thank you for this consultation, we will continue to follow. The impression and plan of care has been dictated as directed. Dr.Cuello Corey performed a history and examination of this patient, discussed the same with the dictator. I agree with the dictator's note ,documented as a scribe. Any additional findings or plans will be noted.
[2025-01-08] MEDS: LORazepam 0.5 MG TAB PO PRN (16:28)
[2025-01-08] MEDS: HYDROcodone/APAP 5-325MG 1 EACH TAB PO PRN (16:28)
--- NOTE | 2025-01-08 20:59 | PN ---
PROGRESS NOTE SUBJECTIVE: Mechelle Bang, came in with claudication versus gangrene of the toes. Ultrasound of the leg showed no digital pulse. Waiting for vascular recommendation and I treated her for some vasculitis. Appears to be less hot than yesterday and less redness than yesterday. Main diagnosis per prognosis is early gangrene, might be in the distal great toe on the right foot. She has darkened extremities in all the toes. Otherwise, continue on IV Solu-Medrol for possible vasculitis. Await for opinion by the vascular doctor. Prognosis is guarded. Echo is pending. MMODL / IJN: [id number] /
[2025-01-08] MEDS ORDERED: VANCOMYCIN IV PER PHARMACY 1 EACH MISC MISCELLANE PRN (21:15)
[2025-01-08] MEDS: VANCOMYCIN 1,500 MG in SODIUM CHLORIDE 0.9% 500 ML 500 ML IVPB ONE (21:50)
--- NOTE | 2025-01-08 21:54 | P.CONS ---
History of Present Illness - Reason for Consult Consult date: 01/08/25 Foot cellulitis Requesting physician: Alicia Gonzalez Chief Complaint Bilateral big toe discoloration and pain x days - History of Present Illness Patient is a 49-year-old female with a past medical history significant for atrial fibrillation hypertension PE hypothyroidism recent admission to the hospital treated for pneumonia now presenting to the hospital concerning of bilateral foot discoloration especially involving her big toes on both side patient mention has symptoms started 3 days ago and has progressed to get worse patient complaining of pain to the lower extremity to be throbbing moderate intense without radiation he did not have an open wound or any drainage patient noticed to having streaking redness on the right foot and more pain with concern for cellulitis that has prompted this consultation on presentation the hospital the patient was afebrile no fever have recorded subsequently patient was not tachycardic hypotensive or hypoxic she did have a white count of 14,000 which is down to 12,000 with a left shift creatinine 0.73 and lactic acid was 2.5 liver isms mildly elevated rheumatoid factor negative MAKENZIE screen was n egative patient did have chest x-ray no acute cardiopulmonary disease process CT angiogram no evidence for vascular occlusion or significant atherosclerotic disease Review of Systems Positive point and negatives has been mentioned in the HPI, complete review of systems was performed and all other systems are negative Past Medical History Past Medical History: Atrial Fibrillation, Hypertension, Pulmonary Embolus (PE), Thyroid Disorder Additional Past Medical History / Comment(s): Pt states she has an arrythmia (afib), pancreatitis and chronic back and neck pain. Herniated Disk History of Any Multi-Drug Resistant Organisms: CRE, Other MDRO Year Discovered:: 07/16/21 MDRO Source:: URINE Past Surgical History: Appendectomy, Orthopedic Surgery Additional Past Surgical History / Comment(s): titanium wrist right, abdominal exploratory open appy, left elbow pin from falling out of tree Past Anesthesia/Blood Transfusion Reactions: No Reported Reaction Past Psychological History: Anxiety, Depression, PTSD Smoking Status: Current every day smoker Past Alcohol Use History: Heavy Past Drug Use History: None Reported - Past Family History Father History Unknown: Yes Family Medical History: Osteoarthritis (OA) Medications and Allergies Home Medications Medication Instructions Recorded Confirmed Type Nicotine 21Mg/24Hr Patch [Habitrol] 1 patch TRANSDERM DAILY #42 patch 01/18/24 01/08/25 Rx Ferrous Sulfate [Iron (65 MG 325 mg PO DAILY 12/22/24 01/08/25 History Elemental)] Bumetanide [Bumex] 1 mg PO DAILY #30 tablet 12/29/24 01/08/25 Rx Gabapentin [Neurontin] 300 mg PO TID 3 Days #90 cap 12/29/24 01/08/25 Rx LORazepam [Ativan] 0.5 mg PO BID PRN #20 tab 12/29/24 01/08/25 Rx Levothyroxine Sodium [Euthyrox] 75 mcg PO DAILY #30 tablet 12/29/24 01/08/25 Rx Metoprolol Tartrate [Lopressor] 50 mg PO BID #60 tab 12/29/24 01/08/25 Rx Pantoprazole [Protonix] 40 mg PO BID #60 tab 12/29/24 01/08/25 Rx Prazosin HCl [Minipress] 2 mg PO HS #30 capsule 12/29/24 01/08/25 Rx Sertraline [Zoloft] 100 mg PO BID #60 tab 12/29/24 01/08/25 Rx traZODone HCL [Desyrel] 50 mg PO TID PRN #90 tab 12/29/24 01/08/25 Rx Budesonide/Formoterol Fumarate 2 puff INHALATION RT-BID 01/08/25 01/08/25 History [Symbicort 160-4.5 Mcg Inhaler] HYDROcodone/APAP 7.5-325MG [[place] 1 tab PO Q12H 01/08/25 01/08/25 History 7.5-325] Potassium Citrate [Urocit-K ER] 15 meq PO PC-BID 01/08/25 01/08/25 History Umeclidinium [place] [Incruse 1 puff INHALATION RT-DAILY 01/08/25 01/08/25 History Ellipta] Allergies Allergy/AdvReac Type Severity Reaction Status Date / Time Penicillins Allergy Unknown Unknown Verified 01/08/25 09:42 Childhood Physical Exam Vitals: Vital Signs Temp Pulse Pulse Resp BP BP Pulse Ox 01/08/25 20:10 90 01/08/25 19:58 87 01/08/25 19:55 97.8 F 74 16 175/103 96 01/08/25 15:43 85 01/08/25 15:34 83 01/08/25 14:00 71 18 130/71 97 01/08/25 08:59 98 18 113/82 94 L 01/08/25 08:37 86 01/08/25 08:26 82 01/08/25 08:00 68 01/08/25 05:35 82 18 156/92 96 01/08/25 04:00 77 18 151/91 97 01/08/25 00:45 80 20 117/80 97 01/08/25 00:12 72 20 125/76 93 L Intake and Output 01/08/25 01/08/25 01/08/25 06:59 14:59 22:59 Intake Total 240 400 Balance 240 400 Intake: Oral 240 400 Other: Voiding Method Toilet # Voids 2 2 # Bowel Movements 0 GENERAL DESCRIPTION: Middle-aged female lying in bed, no distress. No tachypnea or accessory muscle of respiration use. HEENT: Shows Pallor , no scleral icterus. Oral mucous membrane is dry. No pharyngeal erythema or thrush NECK: Trachea central, no thyromegaly. LUNGS: Unlabored breathing. Clear to auscultation anteriorly. No wheeze or crackle. HEART: S1, S2, regular rate and rhythm. No loud murmur ABDOMEN: Soft, no tenderness , guarding or rigidity, no organomegaly EXTREMITIES: Patient did have discoloration of bilateral big toe with some streaking erythema extending from the base of the right big toe towards the dorsum of the right foot SKIN: No rash, no masses palpable. NEUROLOGICAL: The patient is awake, alert, oriented x3, mood and affect normal. Results CBC & Chem 7: 01/08/25 03:49 01/08/25 03:49 Labs: Abnormal Lab Results - Last 24 Hours (Table) 01/07/25 01/08/25 01/08/25 Range/Units 23:38 03:49 03:49 WBC 12.0 H (3.8-10.6) k/uL RBC 3.77 L (3.80-5.40) m/uL MCV 103.0 H (80.0-100.0) fL RDW 16.7 H (11.5-15.5) % Neutrophils # 10.7 H (1.3-7.7) k/uL Lymphocytes # 0.9 L (1.0-4.8) k/uL Chloride 96 L (98-107) mmol/L Carbon Dioxide 33 H (22-30) mmol/L BUN 20 H (7-17) mg/dL Glucose 169 H (74-99) mg/dL ALT 68 H (4-34) U/L Creatine Kinase 142 H (30-135) U/L C-Reactive Protein 5.1 H (<1.0) mg/dL Assessment and Plan (1) Cellulitis of right foot Current Visit: Yes Status: Acute Code(s): L03.115 - CELLULITIS OF RIGHT LOWER LIMB SNOMED Code(s): 91271771807572958 Plan: 1patient presented to hospital with bilateral big toe discoloration and pain in this patient who did have CT did not show any peripheral arterial disease with a question of possibly macrovascular versus Burger disease and is being followed by vascular surgery and now with concern for possible developing lymphangitis/cellulitis especially to the right foot area likely from gram- positive skin rodolfo. 2patient with a penicillin allergy that will be the number of antibiotics safe to use. 3we will start the patient on vancomycin pharmacy to dose and monitoring the area of the redness closely. We will follow on clinical condition and cultures to further adjust medication if needed Thank you for this consultation we will follow the patient along with you Dictation was produced using [employer] dictation software. please excuse any grammatical, word or spelling errors. Time with Patient: Greater than 30
--- NOTE | 2025-01-09 10:24 | CA ---
Transthoracic Echo Report Name: Mechelle Bang Age: 49 Gender: F : 1975 Exam Date: 01/08/2025 07:38 Exam Location: [place] [facility] Ht (in): 67 Wt (lb): 200 Ordering Physician: Sherman Barrientos DO Attending/Referring Phys: Pin Worker Elena Negrete RDCS Procedure CPT: Indications: evaluate for vegetation Cardiac Hx: Technical Quality: Fair Contrast 1: Definity Total Dose (mL): 2 Contrast 2: Total Dose (mL): MEASUREMENTS (Male / Female) Normal Values 2D ECHO LV Diastolic Diameter PLAX 5.3 cm 4.2 - 5.9 / 3.9 - 5.3 cm LV Systolic Diameter PLAX 3.4 cm IVS Diastolic Thickness 1.1 cm 0.6 - 1.0 / 0.6 - 0.9 cm LVPW Diastolic Thickness 1.1 cm 0.6 - 1.0 / 0.6 - 0.9 cm LV Relative Wall Thickness 0.4 RV Internal Dim ED PLAX 3.8 cm LA Systolic Diameter LX 4.5 cm 3.0 - 4.0 / 2.7 - 3.8 cm LV Diastolic Volume MOD BP 101.3 cm??? 67 - 155 / 56 - 104 cm??? LV Systolic Volume MOD BP 37.1 cm??? 22 - 58 / 19 - 49 cm??? LV Ejection Fraction MOD BP 63.4 % >= 55 % LV Cardiac Index MOD BP 2292.0 cm???/min???m??? LV Diastolic Volume MOD 4C 118.6 cm??? LV Systolic Volume MOD 4C 46.7 cm??? LV Ejection Fraction MOD 4C 60.7 % LV Cardiac Index MOD 4C 2570.5 cm???/min???m??? LV Diastolic Length 4C 9.5 cm LV Systolic Length 4C 8.5 cm LV Diastolic Volume MOD 2C 79.3 cm??? LV Systolic Volume MOD 2C 27.7 cm??? LV Ejection Fraction MOD 2C 65.0 % LV Cardiac Index MOD 2C 1841.6 cm???/min???m??? LV Diastolic Length 2C 8.7 cm LV Systolic Length 2C 7.8 cm DOPPLER LVOT Peak Velocity 146.2 cm/s LVOT Peak Gradient 8.6 mmHg LVOT Velocity Time Integral 27.8 cm Mitral E Point Velocity 67.6 cm/s Mitral A Point Velocity 72.3 cm/s Mitral E to A Ratio 0.9 MV Deceleration Time 304.5 ms MV E' Velocity 6.1 cm/s Mitral E to MV E' Ratio 11.0 TR Peak Velocity 126.0 cm/s TR Peak Gradient 6.3 mmHg FINDINGS Left Ventricle Left ventricular ejection fraction is estimated at 55-60 %. Mildly increased septal wall thickness. Mildly increased posterior wall thickness. Right Ventricle Normal right ventricular size. Right ventricular systolic pressure within normal limits. Right Atrium Normal right atrial size. Left Atrium Mild increased left atrial diameter. Mitral Valve Mitral valve thickened. No mitral stenosis. Trace mitral regurgitation. Aortic Valve Trileaflet aortic valve. No aortic stenosis. Trace aortic regurgitation. Tricuspid Valve Structurally normal tricuspid valve. Trace tricuspid regurgitation. Pulmonic Valve Structurally normal pulmonic valve. No pulmonic stenosis. No pulmonic regurgitation. Pericardium No pericardial effusion. Aorta Normal size aortic root and proximal ascending aorta. CONCLUSIONS Left ventricular ejection fraction is estimated at 55-60 %. Mild concentric LVH Normal right ventricular size and function. Mild increased left atrial diameter. Previewed by: Dr Aristides Cardona (Electronically Signed) Final Date: 08 January 2025 10:49
[2025-01-09] MEDS: VANCOMYCIN 1,500 MG in SODIUM CHLORIDE 0.9% 500 ML 500 ML IVPB SCH (10:47)
--- NOTE | 2025-01-09 12:59 | P.PN ---
Subjective Progress Note Date: 01/09/25 Principal diagnosis: Microvascular disease Patient is seen and examined today as a follow-up. She remains in the ER waiting a bed. She states pain is improved and her toes still has some numbness and tingling in her fingers. She also states color seems to be improving in her toes as well. Patient had an echocardiogram with results currently pending. Infectious disease was consulted and patient has been started on IV antibiotics. She has been afebrile. Denies any fevers or chills, no shortness of breath or chest pain, no abdominal pain nausea or vomiting. Objective - Vital Signs Vital signs: Vital Signs Temp 97.8 F 01/09/25 01:03 Pulse 82 01/09/25 07:43 Resp 18 01/09/25 07:43 BP 138/84 01/09/25 07:43 Pulse Ox 94 L 01/09/25 07:43 FiO2 Intake & Output 01/08/25 01/09/25 01/09/25 18:59 06:59 18:59 Intake Total 400 Balance 400 Weight 90.718 kg Intake: Oral 400 Other: Voiding Method Toilet # Voids 2 4 # Bowel Movements 0 - Exam General appearance: The patient is alert, oriented, appears in no acute distress. Obese. HET: Head is normocephalic and atraumatic. Neck: Supple. Abdomen: Soft, nnondistended. Extremities: Palpable bilateral radial pulses. Bilateral hands and fingertips warm to the touch, no discoloration noted with good capillary refill. Bilateral lower extremities with swelling, left greater than right. Palpable PT pulses, palpable DP pulses however more faint likely secondary to swelling. Dorsal aspect of right foot with line of redness without any changes. Right foot distal tip of great toe with necrotic tissue, second and third toes mildly purple blanching improved, good capillary refill, fifth toe with with purple discoloration, dark areas on plantar aspect of right foot. Left foot second and third toe with improved coloration, purple and mottled with brisk capillary refill. Sensorimotor intact Neurological: No focal deficits. Alert and oriented. - Labs CBC & Chem 7: 01/08/25 03:49 01/08/25 03:49 Assessment and Plan Assessment: 1. Ischemic changes to bilateral toes likely microvascular possible Buerger's disease secondary to smoking 2. Numbness and tingling to fingertips and feet 3. Cellulitis of right foot 4. Nicotine dependence 5. Former alcohol abuse 6. Reported history of atrial fibrillation 7. History of pulmonary embolism Plan: 1. ABIs with toe brachial indices reviewed, consistent with microvascular disease likely Buerger's disease secondary to smoking 2. Recommend complete smoking cessation 3. Infectious disease consulted, appreciate their recommendations on antibiotics 4. There is no indication for any vascular surgical intervention at this time. Allow for demarcation. Patient to follow-up with vascular surgery. 5. Rest of medical management per primary medical team Thank you for this consultation. The impression and plan of care has been dictated as directed. Dr.Cuello Corey performed a history and examination of this patient, discussed the same with the dictator. I agree with the dictator's note ,documented as a scribe. Any additional findings or plans will be noted.
[2025-01-09] MEDS: traZODone HCL 50 MG TAB PO PRN (13:02)
--- NOTE | 2025-01-09 20:08 | PN ---
PROGRESS NOTE Temperature 98.8, blood pressure 130s to 140s over 92, O2 is 96% on room air, respiratory rate is 18. Her toes have increased redness on the anterior portion of the right foot with a streak going up to the ankle from the distal foot. She has some distal ulcers in the distal toes. Her great toe is black on the distal portion of the right foot. Other dark discoloration is slowly improving. White count is elevated at 12, down from 14. Dr. Tuttle ordered Vancomycin, ordered antibiotics to treat the infection in her toes, possibly order an MRI of the feet to look for osteomyelitis. Continue with antibiotics and vascular recommendations. The patient was told not to walk on her feet. She is walking to the shower at this time. Prognosis is guarded and ambulate as tolerated. Please see further orders. MMODL / IJN: [id number] /
[2025-01-10 06:14] LABS: African American GFR (CKD) >90 (>60 ml/min/1.73 sqM); Non-African American GFR(CKD) >90 (>60 ml/min/1.73 sqM)
--- NOTE | 2025-01-10 08:34 | P.PN ---
Subjective Progress Note Date: 01/10/25 Principal diagnosis: Microvascular disease Patient is seen and examined today as a follow-up. Patient is up and walking around. States that the pain in her feet have improved. She is able to walk easier. Still has numbness in her toes. No worsening in ischemia. Bilateral f eet with swelling, left greater than right. Redness to the dorsal aspect of right foot. She has been afebrile. She remains on IV antibiotics. Medicine ordered MRI of bilateral lower extremities. Objective - Vital Signs Vital signs: Vital Signs Temp 98.1 F 01/10/25 02:00 Pulse 67 01/10/25 02:00 Resp 15 01/10/25 02:00 BP 153/96 01/10/25 02:00 Pulse Ox 94 L 01/10/25 02:00 FiO2 Intake & Output 01/09/25 01/10/25 01/10/25 18:59 06:59 18:59 Intake Total 120 1317 Balance 120 1317 Intake: Oral 120 1317 Other: # Voids 2 4 - Exam General appearance: The patient is alert, oriented, appears in no acute distress. Obese. HET: Head is normocephalic and atraumatic. Neck: Supple. Abdomen: Soft, nnondistended. Extremities: Palpable bilateral radial pulses. Bilateral hands and fingertips warm to the touch, no discoloration noted with good capillary refill. Bilateral lower extremities with swelling, left greater than right. Palpable PT pulses, palpable DP pulses however more faint likely secondary to swelling. Dorsal aspect of right foot with line of redness without any changes. Right foot distal tip of great toe with necrotic tissue, second and third toes mildly purple blanching improved, good capillary refill, fifth toe with with purple discoloration, dark areas on plantar aspect of right foot. Left foot second and third toe with improved coloration, purple and mottled with brisk capillary refill. Sensorimotor intact Neurological: No focal deficits. Alert and oriented. - Labs CBC & Chem 7: 01/08/25 03:49 01/10/25 05:45 Assessment and Plan Assessment: 1. Ischemic changes to bilateral toes likely microvascular possible Buerger's disease secondary to smoking 2. Numbness and tingling to fingertips and feet 3. Cellulitis of right foot 4. Nicotine dependence 5. Former alcohol abuse 6. Reported history of atrial fibrillation 7. History of pulmonary embolism Plan: 1. ABIs with toe brachial indices reviewed, consistent with microvascular disease likely Buerger's disease secondary to smoking 2. Recommend complete smoking cessation 3. Infectious disease consulted, appreciate their recommendations on antibiotics 4. There is no indication for any vascular surgical intervention at this time. Allow for demarcation. Patient to follow-up with vascular surgery. 5. Rest of medical management per primary medical team Thank you for this consultation. We will sign off at this time. Outpatient follow-up within the next 1 to 2 weeks. The impression and plan of care has been dictated as directed. Dr. Ronan Corey performed a history and examination of this patient, discussed the same with the dictator. I agree with the dictator's note ,documented as a scribe. Any additional findings or plans will be noted.
[2025-01-10] MEDS: NYSTATIN 100,000 UNIT/ML SUSP 500,000 UNIT/5 ML CUP PO SCH (14:05)
--- NOTE | 2025-01-10 14:38 | P.PN ---
Subjective Progress Note Date: 01/09/25 Principal diagnosis: Reason for follow-up is right foot cellulitis Patient is a 49-year-old female with a past medical history significant for atrial fibrillation hypertension PE hypothyroidism recent admission to the hospital treated for pneumonia now presenting to the hospital concerning of bilateral big toe discoloration more on the right side with associated pain CT angiogram did not show any evidence of vascular occlusion vascular surgery is following the patient ID consulted because of ascending lymphangitis on the right side concerning for cellulitis. On today's evaluation that is 01/09/2025,the patient remains to be afebrile, patient is on room air not requiring supplemental oxygen and denies any shortness of breath no chest pain however has been complaining of cough h.Patient denies having any nausea or vomiting, no abdominal pain and no diarrhea still complaining of pain discomfort to bilateral feet area specially the right side but no worsening redness. Patient white count is down to 12,000 yesterday no CBC was done today Objective - Vital Signs Vital signs: Vital Signs Temp 97.8 F 01/09/25 01:03 Pulse 82 01/09/25 07:43 Resp 18 01/09/25 07:43 BP 138/84 01/09/25 07:43 Pulse Ox 94 L 01/09/25 07:43 FiO2 Intake & Output 01/08/25 01/09/25 01/09/25 18:59 06:59 18:59 Intake Total 400 Balance 400 Weight 90.718 kg Intake: Oral 400 Other: Voiding Method Toilet # Voids 2 4 # Bowel Movements 0 - Exam GENERAL DESCRIPTION: Middle-age female lying in bed in no distress RESPIRATORY SYSTEM: Unlabored breathing , decreased breath sounds at bases HEART: S1 S2 regular rate and rhythm , ABDOMEN: Soft , no tenderness EXTREMITIES: Bilateral big toe with discoloration especially the right side with some erythema on the dorsum aspect of the right foot but no worsening - Labs CBC & Chem 7: 01/08/25 03:49 01/10/25 05:45 Assessment and Plan (1) Cellulitis of right foot Current Visit: Yes Status: Acute Code(s): L03.115 - CELLULITIS OF RIGHT LOWER LIMB SNOMED Code(s): 30097420235057829 Plan: 1patient presented to hospital with bilateral big toe discoloration and pain in this patient who did have CT did not show any peripheral arterial disease with a question of possibly macrovascular versus Burger disease and is being followed by vascular surgery and now with concern for possible developing lymphangitis/cellulitis especially to the right foot area likely from gram- positive skin rodolfo. 2patient with a penicillin allergy that will be the number of antibiotics safe to use. 3patient is currently being treated with vancomycin pharmacy to dose and monitoring the area of the redness closely. Question concern answered Dictation was produced using [employer] dictation software. please excuse any grammatical, word or spelling errors. Time with Patient: Less than 30
--- NOTE | 2025-01-10 14:39 | P.PN ---
Subjective Progress Note Date: 01/10/25 Principal diagnosis: Reason for follow-up is right foot cellulitis Patient is a 49-year-old female with a past medical history significant for atrial fibrillation hypertension PE hypothyroidism recent admission to the hospital treated for pneumonia now presenting to the hospital concerning of bilateral big toe discoloration more on the right side with associated pain CT angiogram did not show any evidence of vascular occlusion vascular surgery is following the patient ID consulted because of ascending lymphangitis on the right side concerning for cellulitis. On today's evaluation that is 01/10/2025, the patient continues to be afebrile, the patient is on room air and breathing comfortably, the Pt denies having any chest pain however has been complaining of cough and bringing some greenish sputum no hemoptysis is complaining of pain to bilateral foot area however no worsening redness has been noticed. Patient did have a creatinine 0.66 Vanco trough is pending Objective - Vital Signs Vital signs: Vital Signs Temp 98.5 F 01/10/25 08:34 Pulse 80 01/10/25 13:24 Resp 16 01/10/25 08:34 BP 149/93 01/10/25 08:34 Pulse Ox 95 01/10/25 09:38 FiO2 Intake & Output 01/09/25 01/10/25 01/10/25 18:59 06:59 18:59 Intake Total 120 1317 Balance 120 1317 Intake: Oral 120 1317 Other: # Voids 2 4 - Exam GENERAL DESCRIPTION: Middle-age female lying in bed in no distress RESPIRATORY SYSTEM: Unlabored breathing , decreased breath sounds at bases HEART: S1 S2 regular rate and rhythm , ABDOMEN: Soft , no tenderness EXTREMITIES: Bilateral big toe with discoloration especially the right side with some erythema on the dorsum aspect of the right foot but no worsening - Labs CBC & Chem 7: 01/08/25 03:49 01/10/25 05:45 Assessment and Plan (1) Cellulitis of right foot Current Visit: Yes Status: Acute Code(s): L03.115 - CELLULITIS OF RIGHT LOWER LIMB SNOMED Code(s): 81328091998516538 (2) Thrush Current Visit: Yes Status: Acute Code(s): B37.0 - CANDIDAL STOMATITIS SNOMED Code(s): 72344023 (3) Tracheobronchitis Current Visit: No Status: Acute Code(s): J40 - BRONCHITIS, NOT SPECIFIED ACUTE OR CHRONIC SNOMED Code(s): 81419575 Plan: 1patient presented to hospital with bilateral big toe discoloration and pain in this patient who did have CT did not show any peripheral arterial disease with a question of possibly macrovascular versus Burger disease and is being followed by vascular surgery and now with concern for possible developing l ymphangitis/cellulitis especially to the right foot area likely from gram- positive skin rodolfo. 2patient with a penicillin allergy that will be the number of antibiotics safe to use. 3patient did have evidence of thrush. Nystatin swish and swallow 4patient is complaining of cough and greenish sputum production with get a sputum for culture still having pain to the right foot will add cefepime c ontinue with vancomycin Dictation was produced using [employer] dictation software. please excuse any gr ammatical, word or spelling errors. Time with Patient: Less than 30
[2025-01-10] MEDS: CEFEPIME 2 GM in SODIUM CHLORIDE 0.9% 100 ML IVPB SCH (18:30)
--- NOTE | 2025-01-11 03:14 | PN ---
PROGRESS NOTE SUBJECTIVE: A 49-year-old white female, right foot cellulitis, history of atrial fibrillation, hypertension, PE, hypothyroidism. We treated for pneumonia. Vascular Surgery saw her for possible early gangrene versus cellulitis of the feet. There is discoloration of the feet which is scaring her she wants something done. OBJECTIVE: VITAL SIGNS: Blood pressure 149/93, temp 98.5, pulse 80, O2 of 95%. GENERAL: She is obese. EXTREMITIES: Bilateral big toe with discoloration on the right side with some erythema in the dorsum aspect, but not worsening. CARDIOVASCULAR: S1, S2. ABDOMEN: Soft. LABORATORY DATA: Reviewed. Tracheobronchitis, recent pneumonia, disease, vascular surgeon, cellulitis. Nystatin swish and swallow for thrush, cefepime, vancomycin. Wait for Vascular to be cleared her for discharge, although the patient wants something done with her feet. Prognosis is guarded. MMODL / IJN: [id number] /
[2025-01-11] MEDS: LOSARTAN 25 MG TAB PO SCH (13:01)
[2025-01-11] MEDS: VANCOMYCIN TROUGH DUE 1 EACH MISC MISCELLANE ONE (13:02)
--- NOTE | 2025-01-11 16:33 | MR ---
EXAMINATION TYPE: MR foot LT wo con, MR foot RT wo con DATE OF EXAM: 01/11/2025 12:22 PM COMPARISON: . CLINICAL INDICATION: Female, 49 years old with history of osteomyelitis; PHH, Osteomyelitis, toes are black, feels like she is walking on rocks TECHNIQUE: Multiplanar, multisequence MR imaging of the forefoot was performed administration of IV gadolinium contrast. MR contrast: IV Contrast: mL ( none if empty) FINDINGS: LEFT: Bone marrow signal is maintained and T1-weighted imaging. Suspected bone island which is low T1 and l ow T2 signal in the talus. Moderate edema within the plantar musculature myofascial planes. Findings can be seen with diabetic neuropathy. There is no evidence of bone marrow edema or fracture. There is no periosteal reaction. Medial and lateral hallux sesamoids have a normal appearance. There is no ev idence of a plantar plate injury. Calcaneal plantar spurring is noted. Calcaneal Achilles enthesophyt e formation is also present. Musculature demonstrates age-appropriate signal and volume. There is evidence of soft tissue edema th roughout the plantar surface of 5 the dorsal aspect of the foot and the posterior aspect of the infer ior leg. There is no organized soft tissue fluid collection. There is no evidence of a joint effusion. There is no evidence of synovitis. There is no evidence of intermetatarsal bursitis. No Mortons neuroma is present. Flexor tendons are intact. Extensor tendons are intact. No evidence of tenosynovitis. Lisfranc ligament proper is intact. Capsular ligaments are intact. RIGHT: Calcaneal plantar spurring and Achilles enthesophyte formation. Moderate edema within the plantar mus culature myofascial planes. Findings can be seen with diabetic neuropathy. There is no evidence of rony ne marrow edema or fracture. There is no periosteal reaction. Medial and lateral hallux sesamoids hav e a normal appearance. There is no evidence of a plantar plate injury. Calcaneal plantar spurring is noted. Calcaneal Achilles enthesophyte formation is also present. There is no evidence of bone marrow edema or fracture. There is no periosteal reaction. Medial and la teral hallux sesamoids have a normal appearance. There is no evidence of a plantar plate injury. Musculature demonstrates age-appropriate signal and volume There is no organized soft tissue fluid co llection. There is no evidence of a joint effusion. There is no evidence of synovitis. There is no evidence of intermetatarsal bursitis. No Mortons neuroma is present. Flexor tendons are intact. Extensor tendons are intact. No evidence of tenosynovitis. Lisfranc ligament proper is intact. Capsular ligaments are intact. IMPRESSION: Left: * Diffuse soft tissue edema throughout the leg without evidence of osteomyelitis. * No organizing fluid collections. * Talus bone island. * Calcaneal plantar Achilles enthesophyte formation plantar spurring. Right: * Diffuse soft tissue edema throughout the leg without evidence of osteomyelitis. * No organizing fluid collections. * Calcaneal plantar Achilles enthesophyte formation plantar spurring. [facility], , 01/11/2025 4:30 PM
[2025-01-12 06:14] LABS: African American GFR (CKD) >90 (>60 ml/min/1.73 sqM); Non-African American GFR(CKD) >90 (>60 ml/min/1.73 sqM)
--- NOTE | 2025-01-12 15:08 | P.PN ---
Subjective Progress Note Date: 01/11/25 Principal diagnosis: Reason for follow-up is right foot cellulitis Patient is a 49-year-old female with a past medical history significant for atrial fibrillation hypertension PE hypothyroidism recent admission to the hospital treated for pneumonia now presenting to the hospital concerning of bilateral big toe discoloration more on the right side with associated pain CT angiogram did not show any evidence of vascular occlusion vascular surgery is following the patient ID consulted because of ascending lymphangitis on the right side concerning for cellulitis. On today's evaluation that is 01/11/2025, patient did not have any fever and denies any chills, patient is breathing comfortably on room air, patient with no chest pain still complaining of cough bring up some sputum patient did not have any abdominal pain nausea vomiting or any loose stools, pain to the right foot has slightly decreased in intensity. Patient did not have lab draw today except Vanco trough of 12.1 Objective - Vital Signs Vital signs: Vital Signs Temp 98.2 F 01/11/25 13:40 Pulse 68 01/11/25 13:40 Resp 18 01/11/25 13:40 BP 146/94 01/11/25 13:40 Pulse Ox 90 L 01/11/25 13:40 FiO2 Intake & Output 01/10/25 01/11/25 01/11/25 18:59 06:59 18:59 Other: Voiding Method Toilet # Voids 4 5 - Exam GENERAL DESCRIPTION: Middle-age female lying in bed in no distress RESPIRATORY SYSTEM: Unlabored breathing , decreased breath sounds at bases HEART: S1 S2 regular rate and rhythm , ABDOMEN: Soft , no tenderness EXTREMITIES: Bilateral big toe with discoloration especially the right side with some erythema on the dorsum aspect of the right foot but no worsening - Labs CBC & Chem 7: 01/08/25 03:49 01/12/25 05:29 Assessment and Plan (1) Cellulitis of right foot Current Visit: Yes Status: Acute Code(s): L03.115 - CELLULITIS OF RIGHT LOWER LIMB SNOMED Code(s): 75732397536483333 (2) Thrush Current Visit: Yes Status: Acute Code(s): B37.0 - CANDIDAL STOMATITIS SNOMED Code(s): 10432633 (3) Tracheobronchitis Current Visit: No Status: Acute Code(s): J40 - BRONCHITIS, NOT SPECIFIED ACUTE OR CHRONIC SNOMED Code(s): 99893635 Plan: 1patient presented to hospital with bilateral big toe discoloration and pain in this patient who did have CT did not show any peripheral arterial disease with a question of possibly macrovascular versus Burger disease and is being followed by vascular surgery and now with concern for possible developing lymphangitis/cellulitis especially to the right foot area likely from gram- positive skin rodolfo. 2patient with a penicillin allergy that will be the number of antibiotics safe to use. 3patient did have evidence of thrush. For the patient is being treated with nystatin swish and swallow 4patient is complaining of cough and greenish sputum production sputum cultures currently pending 5continue cefepime and vancomycin while waiting for the workup to be completed Dictation was produced using [employer] dictation software. please excuse any grammatical, word or spelling errors. Time with Patient: Less than 30
[2025-01-12] MEDS: DILTIAZEM ORAL 60 MG TAB PO SCH (16:56)
--- NOTE | 2025-01-12 22:10 | P.PN ---
Subjective Progress Note Date: 01/12/25 Principal diagnosis: Reason for follow-up is right foot cellulitis Patient is a 49-year-old female with a past medical history significant for atrial fibrillation hypertension PE hypothyroidism recent admission to the hospital treated for pneumonia now presenting to the hospital concerning of bilateral big toe discoloration more on the right side with associated pain CT angiogram did not show any evidence of vascular occlusion vascular surgery is following the patient ID consulted because of ascending lymphangitis on the right side concerning for cellulitis. On today's evaluation that is 01/12/2025, Patient is afebrile patient is currently on room air and denies having any shortness of breath, the patient denies any chest pain however still complaining of cough and bring up some sputum, the patient denies any nausea vomiting did not have any abdominal pain and no diarrhea continue complaining of pain especially in the right foot area. No CBC was done today creatinine 0.6 Objective - Vital Signs Vital signs: Vital Signs Temp 97.7 F 01/12/25 13:36 Pulse 67 01/12/25 13:36 Resp 18 01/12/25 13:36 BP 123/79 01/12/25 13:36 Pulse Ox 95 01/12/25 13:36 FiO2 Intake & Output 01/11/25 01/12/25 01/12/25 18:59 06:59 18:59 Other: Voiding Method Toilet Toilet # Voids 3 - Exam GENERAL DESCRIPTION: Middle-age female lying in bed in no distress RESPIRATORY SYSTEM: Unlabored breathing , decreased breath sounds at bases HEART: S1 S2 regular rate and rhythm , ABDOMEN: Soft , no tenderness EXTREMITIES: Bilateral big toe with discoloration especially the right side with some erythema on the dorsum aspect of the right foot but no worsening - Labs CBC & Chem 7: 01/08/25 03:49 01/12/25 05:29 Assessment and Plan (1) Cellulitis of right foot Current Visit: Yes Status: Acute Code(s): L03.115 - CELLULITIS OF RIGHT LOWER LIMB SNOMED Code(s): 93970291063851270 (2) Thrush Current Visit: Yes Status: Acute Code(s): B37.0 - CANDIDAL STOMATITIS SNOMED Code(s): 79381174 (3) Tracheobronchitis Current Visit: No Status: Acute Code(s): J40 - BRONCHITIS, NOT SPECIFIED ACUTE OR CHRONIC SNOMED Code(s): 63656508 Plan: 1patient presented to hospital with bilateral big toe discoloration and pain in this patient who did have CT did not show any peripheral arterial disease with a question of possibly macrovascular versus Burger disease and is being followed by vascular surgery and now with concern for possible developing lymphangitis/cellulitis especially to the right foot area likely from gram- positive skin rodolfo. 2patient with a penicillin allergy that will be the number of antibiotics safe to use. 3patient did have evidence of thrush. For the patient is being treated with nystatin swish and swallow 4patient is complaining of cough and greenish sputum production sputum cultures obtained today results will be followed 5patient is currently being treated with e cefepime and vancomycin while waiting for the workup to be completed Dictation was produced using [employer] dictation software. please excuse any grammatical, word or spelling errors. Time with Patient: Less than 30
[2025-01-13] MEDS: guaiFENesin-DM 600/30MG 1 EACH TAB.ER.12H PO SCH (00:02)
--- NOTE | 2025-01-13 08:18 | PN ---
PROGRESS NOTE A 49-year-old white female with vascular syndrome, Buerger's disease and discoloration in her toes, in my opinion, is a little bit better. She said she had some blood come out of her great toe with a big callus of black hematoma versus gangrenous. Started her on calcium channel blockers, and ARBs, vasodilators to help the blood flow to the foot. We are going to do compression stockings intermittently on her legs. Continue with antibiotics until Dr. Tuttle says she is good to go home. Continue current treatment. Limited ambulation. . No more smoking and vaping, etc. No alcohol. Prognosis is guarded. Please see further orders. Pneumonia has improved. Breathing has improved with cough and congestion. MMODL / IJN: [id number] /
[2025-01-13 08:28] LABS: Basophils # (A) 0.01 X 10*3/uL (0.00-0.10); Basophils % (A) 0.1 %; Eosinophils # (A) 0.01 X 10*3/uL (0.04-0.35); Eosinophils % (A) 0.1 %; HCT 35.6 % (37.2-46.3); HGB 11.4 g/dL (12.0-15.0); Lymphocytes # (A) 0.78 X 10*3/uL (0.90-5.00); Lymphocytes % (A) 5.3 %; MCH 32.9 pg (27.0-32.0); MCV 102.9 FL (80.0-97.0); Mean Platelet Volume 10.4 FL (9.5-12.2); Monocytes # (A) 0.55 X 10*3/uL (0.20-1.00); Monocytes % (A) 3.7 %; NRBC Per 100 WBC 0 X 10*3/uL (0.00-0.01); Neutrophils # (A) 13.38 X 10*3/uL (1.80-7.70); Neutrophils % (A) 90.5 %; Platelet Count 243 X 10*3/uL (140-440); RBC 3.46 X 10*6/uL (4.10-5.20); RDW 17.2 % (11.5-14.5); WBC 14.78 X 10*3/uL (4.50-10.00)
--- NOTE | 2025-01-13 08:44 | PN ---
PROGRESS NOTE The patient came in with Buerger's disease, gangrene to the feet versus cellulitis. Risk factor modification was discussed with the patient. She is not very happy about nothing being done, but I told her there is nothing we can do. No procedure is suggested. No smoking. No vaping. Continue with vasodilators and see how she does. Follow up with MRI is to look for osteomyelitis and continue to treat risk factor modification. Alcohol withdrawal also. Alcohol cessation will have to be done. Blood pressure control, etc. Vasodilators. PHYSICAL EXAMINATION: LUNGS: Clear. CARDIOVASCULAR: S1, S2. HEMATOLOGY: Negative Homans. PSYCHIATRIC: Fair mood and affect. Blood pressure is high at 150 to 167 over 80 to 90. Possibly add a calcium channel lise, which also help with the circulation. Prognosis is guarded. Ambulate as tolerated. MMODL / IJN: [id number] /
[2025-01-13 09:13] LABS: BUN/Creat Ratio 32.12 Ratio (12.00-20.00); Blood Urea Nitrogen 25.7 mg/dL (9.0-27.0); Calcium 9.3 mg/dL (8.7-10.3); Carbon Dioxide 28.1 mmol/L (21.6-31.8); Chloride 100 mmol/L (96-109); Glucose 111 mg/dL (70-110); Sodium 139 mmol/L (135-145)
[2025-01-13 09:59] LABS: African American GFR (CKD) >90 (>60 ml/min/1.73 sqM); Non-African American GFR(CKD) >90 (>60 ml/min/1.73 sqM)
--- NOTE | 2025-01-13 11:05 | P.PN ---
Subjective Progress Note Date: 01/13/25 Principal diagnosis: Microvascular disease Patient is seen and examined as a follow-up. States still has pain in her feet right greater than left. She had an MRI of bilateral feet that showed swelling however no evidence of osteomyelitis or fluid collection to suggest abscess. Still has erythema to dorsal aspect of right foot and great toe. Patient states that she is having drainage from her great toe by her toenail. She has been afebrile. She remains on IV antibiotics with infectious disease following. No worsening in discoloration in toes actually there has been improvement. Objective - Vital Signs Vital signs: Vital Signs Temp 98.5 F 01/13/25 07:34 Pulse 69 01/13/25 09:11 Resp 18 01/13/25 07:34 BP 162/95 01/13/25 07:34 Pulse Ox 94 L 01/13/25 07:34 FiO2 Intake & Output 01/12/25 01/13/25 01/13/25 18:59 06:59 18:59 Other: Voiding Method Toilet Toilet # Voids 15 3 # Bowel Movements 1 - Exam General appearance: The patient is alert, oriented, appears in no acute distress. Obese. HET: Head is normocephalic and atraumatic. Neck: Supple. Abdomen: Soft, nnondistended. Extremities: Palpable bilateral radial pulses. Bilateral hands and fingertips warm to the touch, no discoloration noted with good capillary refill. Bilateral lower extremities with swelling. Palpable PT pulses, palpable DP pulses however more faint likely secondary to swelling. Dorsal aspect of right foot with line of redness improved. There is erythema along the distal dorsal aspect of right foot and great toe. Scant amount of serosanguineous drainage from right great toe appears to be coming from toenail. Right foot distal tip of great toe with necrotic tissue, second and third toes mildly purple blanching improved, good capillary refill, fifth toe with with purple discoloration, dark areas on plantar aspect of right foot. Left foot second and third toe with improved coloration, purple and mottled with brisk capillary refill. Sensorimotor intact Neurological: No focal deficits. Alert and oriented. - Labs CBC & Chem 7: 01/13/25 03:12 01/13/25 09:07 Labs: Abnormal Lab Results - Last 24 Hours (Table) 01/13/25 01/13/25 Range/Units 03:12 03:12 WBC 14.78 H (4.50-10.00) X 10*3/uL RBC 3.46 L (4.10-5.20) X 10*6/uL Hgb 11.4 L (12.0-15.0) g/dL Hct 35.6 L (37.2-46.3) % MCV 102.9 H (80.0-97.0) FL MCH 32.9 H (27.0-32.0) pg RDW 17.2 H (11.5-14.5) % Immature Gran # 0.05 H (0.00-0.04) X 10*3/uL Neutrophils # 13.38 H (1.80-7.70) X 10*3/uL Lymphocytes # 0.78 L (0.90-5.00) X 10*3/uL Eosinophils # 0.01 L (0.04-0.35) X 10*3/uL BUN/Creatinine Ratio 32.12 H (12.00-20.00) Ratio Glucose 111 H (70-110) mg/dL C-Reactive Protein 2.00 H (0.00-0.80) mg/dL Assessment and Plan Assessment: 1. Ischemic changes to bilateral toes likely microvascular possible Buerger's disease secondary to smoking 2. Numbness and tingling to fingertips and feet 3. Cellulitis of right foot 4. Nicotine dependence 5. Former alcohol abuse 6. Reported history of atrial fibrillation 7. History of pulmonary embolism Plan: 1. ABIs with toe brachial indices reviewed, consistent with microvascular di sease likely Buerger's disease secondary to smoking 2. Recommend complete smoking cessation 3. Infectious disease consulted, appreciate their recommendations on antibiotics 4. There is no indication for any vascular surgical intervention at this time. Allow for demarcation. Patient to follow-up with vascular surgery. 5. Cultures ordered of fluid from right great toe 6. Rest of medical management per primary medical team Thank you for this consultation. The impression and plan of care has been dictated as directed. Dr. Alanis I performed a history and examination of this patient, discussed the same with the dictator. I agree with the dictator's note ,documented as a scribe. Any additional findings or plans will be noted.
[2025-01-13] MEDS: VANCOMYCIN TROUGH DUE 1 EACH MISC MISCELLANE ONE (11:07)
--- NOTE | 2025-01-14 00:11 | PN ---
PROGRESS NOTE SUBJECTIVE: A 49-year-old white female, Buerger's disease. Vascular has seen the patient. She is having some drainage with the toenail. Remains on IV antibiotics for Infectious Disease. No worsening discoloration. I think that has improved. Blood pressure, medicines, vasodilators have been ordered. OBJECTIVE: VITAL SIGNS: Blood pressure is 160 over 50s, pulse 69, respiratory rate 16 to 18, temp 98.5. CARDIOVASCULAR: S1, S2. ABDOMEN: Soft, distended, obesity. Right foot just at the tip of the great toe with necrotic tissue. Second and third toes, mildly purple, blanching, improved. Capillary refill, MERNA inhibitors, calcium channel blockers were ordered. Wait for Infectious Disease to clear for discharge. Prognosis guarded. Check white count. MMODL / IJN: [id number] /
[2025-01-14 08:40] LABS: HCT 38.2 % (37.2-46.3); MCH 33.1 pg (27.0-32.0); MCHC 31.4 g/dL (32.0-37.0); MCV 105.5 FL (80.0-97.0); Mean Platelet Volume 10.4 FL (9.5-12.2); NRBC Per 100 WBC 0 X 10*3/uL (0.00-0.01); Platelet Count 267 X 10*3/uL (140-440); RBC 3.62 X 10*6/uL (4.10-5.20); RDW 17.1 % (11.5-14.5); WBC 14.66 X 10*3/uL (4.50-10.00)
[2025-01-14 09:14] LABS: ALT 63 U/L (8-44); AST 26 U/L (13-35); Albumin 3.8 g/dL (3.8-4.9); Albumin/Globulin Ratio 1.46 Ratio (1.60-3.17); Alkaline Phosphatase 115 U/L (41-126); BUN/Creat Ratio 36.57 Ratio (12.00-20.00); Blood Urea Nitrogen 25.6 mg/dL (9.0-27.0); Calcium 9.3 mg/dL (8.7-10.3); Carbon Dioxide 28.8 mmol/L (21.6-31.8); Chloride 102 mmol/L (96-109); Globulin 2.6 g/dL (1.6-3.3); Glucose 189 mg/dL (70-110); Potassium 4.9 mmol/L (3.5-5.5); Sodium 139 mmol/L (135-145); Total Bilirubin <0.2 mg/dL (0.3-1.2); Total Protein 6.4 g/dL (6.2-8.2)
[2025-01-14 09:20] LABS: Basophils # (A) 0.02 X 10*3/uL (0.00-0.10); Basophils % (A) 0.1 %; Eosinophils # (A) 0 X 10*3/uL (0.04-0.35); Eosinophils % (A) 0 %; Lymphocytes # (A) 0.84 X 10*3/uL (0.90-5.00); Lymphocytes % (A) 5.7 %; Monocytes # (A) 0.53 X 10*3/uL (0.20-1.00); Monocytes % (A) 3.6 %; Neutrophils # (A) 13.21 X 10*3/uL (1.80-7.70); Neutrophils % (A) 90.2 %
--- NOTE | 2025-01-14 11:14 | P.PN ---
Subjective Progress Note Date: 01/14/25 Principal diagnosis: Microvascular disease Patient is seen and examined today as a follow-up. She is now stating that she feels like she is getting jolting pains upper legs. She continues to have lower extremity swelling. No worsening of her toes, no increase in erythema. Patient is already on gabapentin. She has been afebrile. Remains on IV antibiotics and followed by infectious disease. Objective - Vital Signs Vital signs: Vital Signs Temp 97.7 F 01/14/25 06:46 Pulse 61 01/14/25 06:46 Resp 18 01/14/25 06:46 BP 184/104 01/14/25 06:46 Pulse Ox 97 01/14/25 06:46 FiO2 Intake & Output 01/13/25 01/14/25 01/14/25 18:59 06:59 18:59 Intake Total 720 Balance 720 Intake: Oral 720 Other: # Voids 3 3 # Bowel Movements 1 - Exam General appearance: The patient is alert, oriented, appears in no acute distress. Obese. HET: Head is normocephalic and atraumatic. Neck: Supple. Abdomen: Soft, nnondistended. Extremities: Palpable bilateral radial pulses. Bilateral hands and fingertips warm to the touch, no discoloration noted with good capillary refill. Bilateral lower extremities with swelling. Palpable PT pulses, palpable DP pulses however more faint likely secondary to swelling. Dorsal aspect of right foot with line of redness improved. There is erythema along the distal dorsal aspect of right foot and great toe. Scant amount of serosanguineous drainage from right great toe appears to be coming from toenail. Right foot distal tip of great toe with necrotic tissue, second and third toes mildly purple blanching improved, good capillary refill, fifth toe with with purple discoloration, dark areas on plantar aspect of right foot. Left foot second and third toe with improved colo ration, purple and mottled with brisk capillary refill. Sensorimotor intact Neurological: No focal deficits. Alert and oriented. - Labs CBC & Chem 7: 01/14/25 04:07 01/14/25 04:07 Labs: Abnormal Lab Results - Last 24 Hours (Table) 01/13/25 01/13/25 Range/Units 03:12 03:12 WBC 14.78 H (4.50-10.00) X 10*3/uL RBC 3.46 L (4.10-5.20) X 10*6/uL Hgb 11.4 L (12.0-15.0) g/dL Hct 35.6 L (37.2-46.3) % MCV 102.9 H (80.0-97.0) FL MCH 32.9 H (27.0-32.0) pg RDW 17.2 H (11.5-14.5) % Immature Gran # 0.05 H (0.00-0.04) X 10*3/uL Neutrophils # 13.38 H (1.80-7.70) X 10*3/uL Lymphocytes # 0.78 L (0.90-5.00) X 10*3/uL Eosinophils # 0.01 L (0.04-0.35) X 10*3/uL BUN/Creatinine Ratio 32.12 H (12.00-20.00) Ratio Glucose 111 H (70-110) mg/dL C-Reactive Protein 2.00 H (0.00-0.80) mg/dL Microbiology - Last 24 Hours (Table) 01/13/25 11:00 Gram Stain - Preliminary Toe - Right First Wound Culture - Preliminary 01/12/25 06:00 Gram Stain - Preliminary Sputum Assessment and Plan Assessment: 1. Ischemic changes to bilateral toes likely microvascular possible Buerger's disease secondary to smoking 2. Numbness and tingling to fingertips and feet 3. Cellulitis of right foot 4. Nicotine dependence 5. Former alcohol abuse 6. Reported history of atrial fibrillation 7. History of pulmonary embolism Plan: CTA abdomen aorta pelvis with runoff, previous CTA chest from previous recent admission, echocardiogram and ABIs independently reviewed by Dr. Dan. No evidence of abdominal aortic aneurysm, echocardiogram overall normal, consider possible embolic however no evidence. Again there is no recommendation for any vascular surgical intervention. Continue symptomatic treatment. Continue gabapentin. Discussed again with patient importance of smoking cessation. Alcohol abstinence. Recommend outpatient follow-up with vascular surgery, allow for demarcation. Infectious disease following. Rest of medical management per primary medical team. Thank you for this consultation. Patient to follow up with vascular surgery on discharge. The impression and plan of care has been dictated as directed. Dr. Dan I performed a history and examination of this patient, discussed the same with the dictator. I agree with the dictator's note ,documented as a scribe. Any additional findings or plans will be noted.
--- NOTE | 2025-01-14 13:18 | P.PN ---
Subjective Progress Note Date: 01/13/25 Principal diagnosis: Reason for follow-up is right foot cellulitis Patient is a 49-year-old female with a past medical history significant for atrial fibrillation hypertension PE hypothyroidism recent admission to the hospital treated for pneumonia now presenting to the hospital concerning of bilateral big toe discoloration more on the right side with associated pain CT angiogram did not show any evidence of vascular occlusion vascular surgery is following the patient ID consulted because of ascending lymphangitis on the right side concerning for cellulitis. On today's evaluation that is 01/13/2025, patient has been afebrile, patient is breathing comfortably and is currently on room air, patient denies having any chest pain though circumventing of cough and bring up sputum, patient denies nausea vomiting or diarrhea and no abdominal pain, acute complaint of pain to bilateral feet area specially the right foot. Patient white count is 14.78 creatinine 0.8 sputum culture currently pending Objective - Vital Signs Vital signs: Vital Signs Temp 98.5 F 01/13/25 07:34 Pulse 74 01/13/25 12:02 Resp 18 01/13/25 07:34 BP 162/95 01/13/25 07:34 Pulse Ox 94 L 01/13/25 07:34 FiO2 Intake & Output 01/12/25 01/13/25 01/13/25 18:59 06:59 18:59 Other: Voiding Method Toilet Toilet # Voids 15 3 # Bowel Movements 1 - Exam GENERAL DESCRIPTION: Middle-age female lying in bed in no distress RESPIRATORY SYSTEM: Unlabored breathing , decreased breath sounds at bases HEART: S1 S2 regular rate and rhythm , ABDOMEN: Soft , no tenderness EXTREMITIES: Bilateral big toe with discoloration especially the right side with some erythema on the dorsum aspect of the right foot but no worsening - Labs CBC & Chem 7: 01/14/25 04:07 01/14/25 04:07 Labs: Abnormal Lab Results - Last 24 Hours (Table) 01/13/25 01/13/25 Range/Units 03:12 03:12 WBC 14.78 H (4.50-10.00) X 10*3/uL RBC 3.46 L (4.10-5.20) X 10*6/uL Hgb 11.4 L (12.0-15.0) g/dL Hct 35.6 L (37.2-46.3) % MCV 102.9 H (80.0-97.0) FL MCH 32.9 H (27.0-32.0) pg RDW 17.2 H (11.5-14.5) % Immature Gran # 0.05 H (0.00-0.04) X 10*3/uL Neutrophils # 13.38 H (1.80-7.70) X 10*3/uL Lymphocytes # 0.78 L (0.90-5.00) X 10*3/uL Eosinophils # 0.01 L (0.04-0.35) X 10*3/uL BUN/Creatinine Ratio 32.12 H (12.00-20.00) Ratio Glucose 111 H (70-110) mg/dL C-Reactive Protein 2.00 H (0.00-0.80) mg/dL Assessment and Plan (1) Cellulitis of right foot Current Visit: Yes Status: Acute Code(s): L03.115 - CELLULITIS OF RIGHT LOWER LIMB SNOMED Code(s): 55118414344366218 (2) Thrush Current Visit: Yes Status: Acute Code(s): B37.0 - CANDIDAL STOMATITIS SNOMED Code(s): 11955815 (3) Tracheobronchitis Current Visit: No Status: Acute Code(s): J40 - BRONCHITIS, NOT SPECIFIED ACUTE OR CHRONIC SNOMED Code(s): 48590364 Plan: 1patient presented to hospital with bilateral big toe discoloration and pain in this patient who did have CT did not show any peripheral arterial disease with a question of possibly macrovascular versus Burger disease and is being followed by vascular surgery and now with concern for possible developing lymphangitis/cellulitis especially to the right foot area likely from gram-p ositive skin rodolfo. 2patient with a penicillin allergy that will limit the number of antibiotics sa fe to use. 3patient did have evidence of thrush. Patient to continue with nystatin swish and swallow 4patient is complaining of cough and greenish sputum production sputum cultures obtained which are currently pending local culture also obtained which are currently pending 5patient to continue cefepime and vancomycin while waiting for the workup to be completed Dictation was produced using [employer] dictation software. please excuse any grammatical, word or spelling errors. Time with Patient: Less than 30
--- NOTE | 2025-01-14 13:19 | P.PN ---
Subjective Progress Note Date: 01/14/25 Principal diagnosis: Reason for follow-up is right foot cellulitis Patient is a 49-year-old female with a past medical history significant for atrial fibrillation hypertension PE hypothyroidism recent admission to the hospital treated for pneumonia now presenting to the hospital concerning of bilateral big toe discoloration more on the right side with associated pain CT angiogram did not show any evidence of vascular occlusion vascular surgery is following the patient ID consulted because of ascending lymphangitis on the right side concerning for cellulitis. On today's evaluation that is 01/14/2025, Patient is afebrile this morning patient denies having any chest pain shortness of breath or any worsening cough, the patient is currently on room air, patient denies any abdominal pain no diarrhea no nausea no vomiting pain to the right foot slightly decreased in intensity. Patient white count is 14.66, creatinine 0.7 cultures currently pending Objective - Vital Signs Vital signs: Vital Signs Temp 97.7 F 01/14/25 06:46 Pulse 80 01/14/25 09:39 Resp 18 01/14/25 06:46 BP 184/104 01/14/25 06:46 Pulse Ox 97 01/14/25 06:46 FiO2 Intake & Output 01/13/25 01/14/25 01/14/25 18:59 06:59 18:59 Intake Total 720 Balance 720 Intake: Oral 720 Other: # Voids 3 3 # Bowel Movements 1 - Exam GENERAL DESCRIPTION: Middle-age female lying in bed in no distress RESPIRATORY SYSTEM: Unlabored breathing , decreased breath sounds at bases HEART: S1 S2 regular rate and rhythm , ABDOMEN: Soft , no tenderness EXTREMITIES: Bilateral big toe with discoloration especially the right side with some erythema on the dorsum aspect of the right foot but no worsening - Labs CBC & Chem 7: 01/14/25 04:07 01/14/25 04:07 Labs: Abnormal Lab Results - Last 24 Hours (Table) 01/14/25 01/14/25 Range/Units 04:07 04:07 WBC 14.66 H (4.50-10.00) X 10*3/uL RBC 3.62 L (4.10-5.20) X 10*6/uL MCV 105.5 H (80.0-97.0) FL MCH 33.1 H (27.0-32.0) pg MCHC 31.4 L (32.0-37.0) g/dL RDW 17.1 H (11.5-14.5) % Immature Gran # 0.06 H (0.00-0.04) X 10*3/uL Neutrophils # 13.21 H (1.80-7.70) X 10*3/uL Lymphocytes # 0.84 L (0.90-5.00) X 10*3/uL Eosinophils # 0 L (0.04-0.35) X 10*3/uL BUN/Creatinine Ratio 36.57 H (12.00-20.00) Ratio Glucose 189 H (70-110) mg/dL Total Bilirubin <0.2 L (0.3-1.2) mg/dL ALT 63 H (8-44) U/L Albumin/Globulin Ratio 1.46 L (1.60-3.17) Ratio Microbiology - Last 24 Hours (Table) 01/12/25 06:00 Gram Stain - Preliminary Sputum Sputum Culture - Preliminary 01/13/25 11:00 Gram Stain - Preliminary Toe - Right First Wound Culture - Preliminary Assessment and Plan (1) Cellulitis of right foot Current Visit: Yes Status: Acute Code(s): L03.115 - CELLULITIS OF RIGHT LOWER LIMB SNOMED Code(s): 96005192663397131 (2) Thrush Current Visit: Yes Status: Acute Code(s): B37.0 - CANDIDAL STOMATITIS SNOMED Code(s): 37418906 (3) Tracheobronchitis Current Visit: No Status: Acute Code(s): J40 - BRONCHITIS, NOT SPECIFIED ACUTE OR CHRONIC SNOMED Code(s): 27570671 Plan: 1patient presented to hospital with bilateral big toe discoloration and pain in this patient who did have CT did not show any peripheral arterial disease with a question of possibly macrovascular versus Burger disease and is being followed by vascular surgery and now with concern for possible developing lymphangitis/c ellulitis especially to the right foot area likely from gram-positive skin rodolfo. 2patient with a penicillin allergy that will limit the number of antibiotics safe to use. 3patient did have evidence of thrush. Patient to continue with nystatin swish and swallow 4patient is complaining of cough and greenish sputum production sputum cultures obtained which are currently pending local culture also obtained which are currently pending 5patient mentions some improvement in the pain, to continue cefepime and vancomycin while waiting for the culture to finalize Dictation was produced using [employer] dictation software. please excuse any grammatical, word or spelling errors. Time with Patient: Less than 30
[2025-01-14 16:20] VITALS: BMI 31.3
--- NOTE | 2025-01-15 11:18 | CT ---
EXAMINATION TYPE: CT chest wo con CT DLP: 554.7 mGycm, Automated exposure control for dose reduction was used. DATE OF EXAM: 01/15/2025 11:00 AM COMPARISON: CTA abdominal aorta with runoff 01/07/2025, CTA chest 12/21/2024 CLINICAL INDICATION:Female, 49 years old with history of dyspnea; PHH, Dyspnea TECHNIQUE: Multiple axial images were obtained through the chest without IV contrast. Lack of IV or o ral contrast limits evaluation of solid and hollow organ viscera. . Coronal and sagittal reformats re viewed. FINDINGS: LUNGS/ PLEURA: No pleural effusion, pneumothorax, focal consolidation. Minimal linear scarring and/or atelectasis within the right upper lobe and right middle lobe and lingula. No suspicious pulmonary nodule or mass. AIRWAY: Patent and unremarkable.. HEART: Size within normal limits.No pericardial effusion Mild coronary artery calcifications present. MEDIASTINUM: No gross evidence of adenopathy. VASCULATURE: No aortic aneurysm. MUSCULOSKELETAL: No acute osseous abnormalities. Redemonstration of healed left-sided posterior eight h, ninth, and 10th rib fractures. Similar superior endplate compression deformities versus Schmorl's nodes involving the T3, T5 and T6 vertebral bodies. Mild multilevel degenerative disc disease. SOFT TISSUES/LYMPH NODES: Unremarkable. LOWER NECK: No significant findings. UPPER ABDOMEN: No significant findings. IMPRESSION: No acute thoracic process within limitations of a noncontrast exam. [facility], , 01/15/2025 11:15 AM
[2025-01-15] MEDS: VANCOMYCIN TROUGH DUE 1 EACH MISC MISCELLANE ONE (13:13)
--- NOTE | 2025-01-15 16:22 | P.CNPUL ---
History of Present Illness Reason for consult: dyspnea Chief complaint: Toe discoloration History of present illness: 49-year-old female with extensive history of smoking and nicotine use about 1 pack/day for 20 to 25 years quit few weeks ago, she was hospitalized for pneumonia few weeks ago and was treated and subsequently was discharged, she started having numbness and tingling in the toes around December subsequently they turn purple and black, currently her right big toe and third toe is cold and cyanosed also left second and third toe is cold and cyanosed with evidence of cyanosis at the sole of foot bilaterally. Vascular surgery has evaluated the patient, patient had a CT angio with no evidence of obstruction or atherosclerosis seen. Earlier today she had intermittent cough a CT scan of the chest was performed, some scarring was noted along with atelectasis and right u pper lobe and right middle lobe and lingula no mass identified, currently patient is on pain medicine along with bronchodilator, broad-spectrum antibiotics with cefepime has been on Solu-Medrol as well Significant prior medical issues include history of DVT PE about 3 years ago for which she was treated, history of smoking and COPD, chronic atrial fibrillation not on any anticoagulation, hypertension hypertensive cardiovascular disease, history of chronic back pain and pancreatitis Review of Systems All systems: negative Past Medical History Past Medical History: Atrial Fibrillation, Hypertension, Pulmonary Embolus (PE), Thyroid Disorder Additional Past Medical History / Comment(s): Pt states she has an arrythmia (afib), pancreatitis and chronic back and neck pain. Herniated Disk History of Any Multi-Drug Resistant Organisms: CRE, Other MDRO Date of last positivie culture/infection: 07/16/21 MDRO Source:: URINE Past Surgical History: Appendectomy, Orthopedic Surgery Additional Past Surgical History / Comment(s): titanium wrist right, abdominal exploratory open appy, left elbow pin from falling out of tree Past Anesthesia/Blood Transfusion Reactions: No Reported Reaction Past Psychological History: Anxiety, Depression, PTSD Smoking Status: Current every day smoker Past Alcohol Use History: Heavy Past Drug Use History: None Reported - Past Family History Father History Unknown: Yes Family Medical History: Osteoarthritis (OA) Medications and Allergies Home Medications Medication Instructions Recorded Confirmed Type Nicotine 21Mg/24Hr Patch [Habitrol] 1 patch TRANSDERM DAILY #42 patch 01/18/24 01/08/25 Rx Ferrous Sulfate [Iron (65 MG 325 mg PO DAILY 12/22/24 01/08/25 History Elemental)] Bumetanide [Bumex] 1 mg PO DAILY #30 tablet 12/29/24 01/08/25 Rx Gabapentin [Neurontin] 300 mg PO TID 3 Days #90 cap 12/29/24 01/08/25 Rx LORazepam [Ativan] 0.5 mg PO BID PRN #20 tab 12/29/24 01/08/25 Rx Levothyroxine Sodium [Euthyrox] 75 mcg PO DAILY #30 tablet 12/29/24 01/08/25 Rx Metoprolol Tartrate [Lopressor] 50 mg PO BID #60 tab 12/29/24 01/08/25 Rx Pantoprazole [Protonix] 40 mg PO BID #60 tab 12/29/24 01/08/25 Rx Prazosin HCl [Minipress] 2 mg PO HS #30 capsule 12/29/24 01/08/25 Rx Sertraline [Zoloft] 100 mg PO BID #60 tab 12/29/24 01/08/25 Rx traZODone HCL [Desyrel] 50 mg PO TID PRN #90 tab 12/29/24 01/08/25 Rx Budesonide/Formoterol Fumarate 2 puff INHALATION RT-BID 01/08/25 01/08/25 History [Symbicort 160-4.5 Mcg Inhaler] HYDROcodone/APAP 7.5-325MG [[place] 1 tab PO Q12H 01/08/25 01/08/25 History 7.5-325] Potassium Citrate [Urocit-K ER] 15 meq PO PC-BID 01/08/25 01/08/25 History Umeclidinium [place] [Incruse 1 puff INHALATION RT-DAILY 01/08/25 01/08/25 History Ellipta] Allergies Allergy/AdvReac Type Severity Reaction Status Date / Time Penicillins Allergy Unknown Unknown Verified 01/08/25 09:42 Childhood Physical Exam Vitals: Vital Signs Temp Pulse Pulse Resp BP Pulse Ox 01/15/25 13:59 98.9 F 67 18 133/86 92 L 01/15/25 12:48 84 01/15/25 12:37 84 01/15/25 09:09 93 L 01/15/25 08:24 68 18 01/15/25 07:24 98.0 F 68 18 191/104 96 01/15/25 00:04 97.8 F 60 20 132/84 92 L 01/14/25 19:30 98.8 F 70 18 155/82 92 L 01/14/25 16:48 70 01/14/25 16:36 67 Intake and Output 01/15/25 01/15/25 01/15/25 06:59 14:59 22:59 Intake Total 720 Balance 720 Intake: Oral 720 Other: Voiding Method Toilet # Voids 3 - Constitutional General appearance: average body habitus, cooperative, disheveled - EENT Eyes: EOMI, PERRLA ENT: normal oropharynx Ears: bilateral: normal - Neck Neck: normal ROM Carotids: bilateral: upstroke normal Thyroid: negative: normal size - Respiratory Respiratory: bilateral: CTA - Cardiovascular Rhythm: regular Heart sounds: normal: S1, S2 - Integumentary Integumentary: normal turgor - Neurologic Neurologic: CNII-XII intact - Musculoskeletal Musculoskeletal: gait normal, generalized weakness, strength equal bilaterally - Psychiatric Psychiatric: A&O x's 3, appropriate affect Right big toe and third toe cyanosed cold to touch with cyanosis at the well- circumscribed at the sole of the foot, cyanotic changes also noted in the left second and third toe with similar finding on sole of foot like right Results - Laboratory Findings CBC and BMP: 01/14/25 04:07 01/14/25 04:07 PT/INR, D-dimer PT 9.8 sec (10.0-12.5) L 01/07/25 18:36 INR 0.9 (<1.2) 01/07/25 18:36 Abnormal lab findings: Abnormal Labs 01/07/25 01/07/25 01/07/25 18:36 18:36 18:36 WBC 14.0 H RBC Hgb Hct MCV 101.1 H MCH MCHC RDW 16.5 H Immature Gran # Neutrophils # 12.9 H Lymphocytes # 0.6 L Eosinophils # PT 9.8 L Chloride Carbon Dioxide BUN 18 H BUN/Creatinine Ratio Glucose 150 H Plasma Lactic Acid [place] Magnesium 1.5 L Total Bilirubin AST 38 H ALT 67 H Creatine Kinase C-Reactive Protein Albumin/Globulin Ratio 01/07/25 01/07/25 01/08/25 18:36 23:38 03:49 WBC 12.0 H RBC 3.77 L Hgb Hct MCV 103.0 H MCH MCHC RDW 16.7 H Immature Gran # Neutrophils # 10.7 H Lymphocytes # 0.9 L Eosinophils # PT Chloride Carbon Dioxide BUN BUN/Creatinine Ratio Glucose Plasma Lactic Acid [place] 2.5 H* Magnesium Total Bilirubin AST ALT Creatine Kinase 142 H C-Reactive Protein 5.1 H Albumin/Globulin Ratio 01/08/25 01/13/25 01/13/25 03:49 03:12 03:12 WBC 14.78 H RBC 3.46 L Hgb 11.4 L Hct 35.6 L MCV 102.9 H MCH 32.9 H MCHC RDW 17.2 H Immature Gran # 0.05 H Neutrophils # 13.38 H Lymphocytes # 0.78 L Eosinophils # 0.01 L PT Chloride 96 L Carbon Dioxide 33 H BUN 20 H BUN/Creatinine Ratio 32.12 H Glucose 169 H 111 H Plasma Lactic Acid [place] Magnesium Total Bilirubin AST ALT 68 H Creatine Kinase C-Reactive Protein 2.00 H Albumin/Globulin Ratio 01/14/25 01/14/25 04:07 04:07 WBC 14.66 H RBC 3.62 L Hgb Hct MCV 105.5 H MCH 33.1 H MCHC 31.4 L RDW 17.1 H Immature Gran # 0.06 H Neutrophils # 13.21 H Lymphocytes # 0.84 L Eosinophils # 0 L PT Chloride Carbon Dioxide BUN BUN/Creatinine Ratio 36.57 H Glucose 189 H Plasma Lactic Acid [place] Magnesium Total Bilirubin <0.2 L AST ALT 63 H Creatine Kinase C-Reactive Protein Albumin/Globulin Ratio 1.46 L - Diagnostic Findings Chest x-ray: report reviewed, image reviewed CT scan - chest: report reviewed, image reviewed Assessment and Plan Assessment: Subsegmental atelectasis on the right upper lobe as well as lingula lobe likely resolving pneumonia, agree with broad-spectrum antibiotics COPD with acute exacerbation, IV steroids bronchodilator supportive care 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
--- NOTE | 2025-01-15 16:41 | US ---
EXAMINATION TYPE: US venous doppler duplex LE BI DATE OF EXAM: 01/15/2025 4:00 PM COMPARISON: 03/16/22 CLINICAL INDICATION: Female, 49 years old with history of BLE edema; BLE edema, Pain. Hx of PE TECHNIQUE: The lower extremity deep venous system is examined utilizing real time linear array sonog felicia with graded compression, color doppler sonography, and spectral doppler. SIDE PERFORMED: Bilateral FINDINGS: VESSELS IMAGED: Common Femoral Vein Deep Femoral Vein Greater Saphenous Vein * Femoral Vein Popliteal Vein Small Saphenous Vein * Proximal Calf Veins (* superficial vessels) Right Leg: No evidence for DVT, Color Doppler imaging shows patency of the vessels. Spectral wavefor ms are within normal limits. Left Leg: No evidence for DVT, Color Doppler imaging shows patency of the vessels. Spectral waveform s are within normal limits. IMPRESSION: No ultrasound evidence for deep venous thrombosis. [facility], , 01/15/2025 4:39 PM
[2025-01-15] MEDS: ENOXAPARIN 40 MG/0.4 ML SYRINGE SQ SCH (18:34)
--- NOTE | 2025-01-15 19:32 | PN ---
PROGRESS NOTE The patient is admitted with influenza A and recent pneumonia. The chest x-ray shows scarring, atelectasis of the right upper lobe, middle lobe and lingula. No pulmonary nodule or mass. She has CT of left-sided 8th, 9th, and 10th rib fractures and compression deformities T3, T5, T4. The patient continues to improve. She has COPD, for which she is hypoxemic most likely, and we are treating her for that. She is concerned about her feet. Dr. Tuttle has seen her and says there is not much he can do. Possibly, if she does not like the current treatment she will have to be transferred down to [facility]. She does not want to stay here without getting better. She has COPD; tracheobronchitis; thrush, on nystatin; cellulitis of the right foot. Continue to use the antibiotics 2 days. Due to the darkening and early gangrenous distal phalanxes, secondary to digital artery stenosis, we will get a consult with Hematology to see if there is anything that we can do. Otherwise, we will have to transfer down to [facility]. Prognosis is guarded. MMODL / IJN: [id number] /
--- NOTE | 2025-01-15 20:02 | PN ---
PROGRESS NOTE A 49-year-old white female with Buerger's disease, severe discoloration of her toes. She is very afraid of losing her toes. She does not want to be discharged to home. She wants to be transferred to another hospital possibly. I told her I would try. PHYSICAL EXAMINATION: VITAL SIGNS: Oxygen levels are 93 on 2 L, temperature 98, pulse 68, respiratory rate is 18. LUNGS: Scattered rhonchi and wheeze. CARDIOVASCULAR: S1, S2. HEMATOLOGY: Negative for Homans. EXTREMITIES: Shows redness in the lower extremities with purple discoloration in the lower extremities. White count is high at 14.56, neutrophils high. Dr. Tuttle is monitoring antibiotics. CRP is elevated, on vancomycin and cefepime. Prognosis is guarded. We will discuss with Infectious Disease. Asked about transferring her. I am unclear as we are not able to do anything more for her here. Prognosis is guarded. MMODL / IJN: [id number] /
--- NOTE | 2025-01-15 20:11 | P.CONS ---
History of Present Illness - Reason for Consult Consult date: 01/15/25 concern for microvascular clotting Requesting physician: Josef Carlson - Chief Complaint toe discoloration - History of Present Illness Patient is a 49-year-old female who presented to the emergency department directed by her PCP Dr. Carlson for discoloration of her toes. Consult placed for concern for microvasular blood clots. She has a significant past medical history of recent hospital admission for pneumonia, smoker, etoh abuse, atrial fibrillation, hypertension, and pulmonary embolism. Patient reports during admission earlier this month for pneumonia she began having bilateral fingertips and toe numbness and tingling. Upon discharge she noted black discoloration to her toes at which time she presented for further evaluation. Patient has had extensive workup since admit on 01/07/2024 with vascular surgery following. Arterial ultrasound of lower extremities showing no flow identified in the right digital artery. Echocardiogram overall normal with ejection fraction 55 to 60%. CTA abdomen with runoff showing no evidence of vascular occlusion or significant atherosclerotic disease. At least 2 vessels are seen crossing the ankle bilaterally. During last admit patient had CTA chest on 12/21/2024 which showed no central or segmental acute pulmonary embolism. MRI bilateral feet showing diffuse soft tissue edema throughout the leg without evidence of osteomyelitis. Vascular surgery has no plans for surgical intervention, plan for outpt f/u, stating possible Buerger's disease? Infectious disease also following and currently treating patient with IV antibiotics for possible cellulitis. She also has continued on steroids. Upon review of labs since admit, CRP elevated at 5.1. Coags WNL. WBC 14.6, hemoglobin 12.0, platelets 267,000. Patient does report she had a pulmonary embolism in 2023 which was thought to be provoked by the COVID vaccine per patient and was on Eliquis for 6 months. She also has history of A-fib but reports she is not currently on anticoagulation. EKG on admit showing NSR. As stated above patient was admitted earlier this month for pneumonia, patient also reports she had COVID in early November of this year. She has approximate [id number] history of smoking, quitting 2 weeks ago. Also reports history of alcohol abusem drinking less than 1/2 pint of alcohol daily, quitting 1 month ago. Review of Systems 10 point ROS is negative except as stated in the HPI Past Medical History Past Medical History: Atrial Fibrillation, Hypertension, Pulmonary Embolus (PE), Thyroid Disorder Additional Past Medical History / Comment(s): Pt states she has an arrythmia (afib), pancreatitis and chronic back and neck pain. Herniated Disk History of Any Multi-Drug Resistant Organisms: CRE, Other MDRO Year Discovered:: 07/16/21 MDRO Source:: URINE Past Surgical History: Appendectomy, Orthopedic Surgery Additional Past Surgical History / Comment(s): titanium wrist right, abdominal exploratory open appy, left elbow pin from falling out of tree Past Anesthesia/Blood Transfusion Reactions: No Reported Reaction Past Psychological History: Anxiety, Depression, PTSD Smoking Status: Current every day smoker Past Alcohol Use History: Heavy Past Drug Use History: None Reported - Past Family History Father History Unknown: Yes Family Medical History: Osteoarthritis (OA) Medications and Allergies Home Medications Medication Instructions Recorded Confirmed Type Nicotine 21Mg/24Hr Patch [Habitrol] 1 patch TRANSDERM DAILY #42 patch 01/18/24 01/08/25 Rx Ferrous Sulfate [Iron (65 MG 325 mg PO DAILY 12/22/24 01/08/25 History Elemental)] Bumetanide [Bumex] 1 mg PO DAILY #30 tablet 12/29/24 01/08/25 Rx Gabapentin [Neurontin] 300 mg PO TID 3 Days #90 cap 12/29/24 01/08/25 Rx LORazepam [Ativan] 0.5 mg PO BID PRN #20 tab 12/29/24 01/08/25 Rx Levothyroxine Sodium [Euthyrox] 75 mcg PO DAILY #30 tablet 12/29/24 01/08/25 Rx Metoprolol Tartrate [Lopressor] 50 mg PO BID #60 tab 12/29/24 01/08/25 Rx Pantoprazole [Protonix] 40 mg PO BID #60 tab 12/29/24 01/08/25 Rx Prazosin HCl [Minipress] 2 mg PO HS #30 capsule 12/29/24 01/08/25 Rx Sertraline [Zoloft] 100 mg PO BID #60 tab 12/29/24 01/08/25 Rx traZODone HCL [Desyrel] 50 mg PO TID PRN #90 tab 12/29/24 01/08/25 Rx Budesonide/Formoterol Fumarate 2 puff INHALATION RT-BID 01/08/25 01/08/25 History [Symbicort 160-4.5 Mcg Inhaler] HYDROcodone/APAP 7.5-325MG [[place] 1 tab PO Q12H 01/08/25 01/08/25 History 7.5-325] Potassium Citrate [Urocit-K ER] 15 meq PO PC-BID 01/08/25 01/08/25 History Umeclidinium [place] [Incruse 1 puff INHALATION RT-DAILY 01/08/25 01/08/25 History Ellipta] Allergies Allergy/AdvReac Type Severity Reaction Status Date / Time Penicillins Allergy Unknown Unknown Verified 01/08/25 09:42 Childhood Physical Exam Vitals: Vital Signs Temp Pulse Pulse Resp BP Pulse Ox 01/15/25 09:09 93 L 01/15/25 08:24 68 18 01/15/25 07:24 98.0 F 68 18 191/104 96 01/15/25 00:04 97.8 F 60 20 132/84 92 L 01/14/25 19:30 98.8 F 70 18 155/82 92 L 01/14/25 16:48 70 01/14/25 16:36 67 01/14/25 13:06 98.2 F 68 18 123/72 93 L Intake and Output 01/14/25 01/15/25 01/15/25 22:59 06:59 14:59 Intake Total 720 Balance 720 Intake: Oral 720 Other: Voiding Method Toilet Toilet # Voids 3 3 Weight 90.718 kg - Constitutional General appearance: no acute distress, obese - EENT Eyes: anicteric sclerae, EOMI ENT: hearing grossly normal - Respiratory breathing is even and unlabored - Gastrointestinal General gastrointestinal: soft, no tenderness - Integumentary right great toe necrotic, distal right 2nd/3rd toe purplish discoloration, left 2nd distal toe necrotic - Psychiatric Psychiatric: A&O x's 3 Results CBC & Chem 7: 01/14/25 04:07 01/14/25 04:07 Labs: Microbiology - Last 24 Hours (Table) 01/13/25 11:00 Gram Stain - Final Toe - Right First Wound Culture - Final 01/12/25 06:00 Gram Stain - Preliminary Sputum Sputum Culture - Preliminary Comments: echo, mri feet, cta chest and abd, and arterial US reviewed Assessment and Plan (1) Cellulitis of right foot Current Visit: Yes Status: Acute Priority: High Code(s): L03.115 - CELLULITIS OF RIGHT LOWER LIMB SNOMED Code(s): 45972884085906230 (2) Bilateral leg numbness Current Visit: Yes Status: Acute Code(s): R20.0 - ANESTHESIA OF SKIN SNOMED Code(s): 500745685 (3) Discoloration of nailbeds Current Visit: Yes Status: Acute Priority: High Code(s): L60.8 - OTHER NAIL DISORDERS SNOMED Code(s): 19047069 Plan: Toe necrosis, arterial insufficiency: Presented to the emergency department for discoloration of her toes. She has a significant past medical history of recent hospital admission for pneumonia, smoker, etoh abuse, atrial fibrillation, hypertension, and pulmonary embolism. Patient reports during admission earlier this month for pneumonia she began having bilateral fingertips and toe numbness and tingling. Upon discharge she noted black discoloration to her toes at which time she presented for further evaluation. Patient does report she had a pulmonary embolism in 2023 which was thought to be provoked by the COVID vaccine per patient and was on Eliquis for 6 months. As stated above patient was admitted earlier this month for pneumonia, patient also reports she had COVID in early November of this year -Patient has had extensive workup since admit on 01/07/2024 with vascular surgery following. No evidence of vascular occlusion on imaging obtained. No plan for vascular intervention at this time, plan to f/u outpt. Stating symptoms could be r/t possible Buerger's disease? Infectious disease also following and currently treating patient with IV antibiotics for possible cellulitis and tracheobronchitis. She also has continued on IV steroids. -Upon review of labs since admit, CRP elevated at 5.1. Coags WNL. WBC 14.6, hemoglobin 12.0, platelets 267,000. MAKENZIE/RF negative -Will obtain ESR, and APLS workup. BLE dopplers will also be obtained to r/o VTEs. CTA chest on 12/21/24 was negative -Clinic f/u upon discharge to complete hypercoaguable workup and review APLS labs. APLS can increase risk for venous/arterial clots, will provide further recommendations pending workup -Patient will need close f/u with vascular surgery Time with Patient: Greater than 30
[2025-01-15 20:52] LABS: Cardiolipin Ab IgG Interp Negative (Negative); Cardiolipin Ab IgM Interp Negative (Negative); Cardiolipin IgA Antibody <2.0 U/mL; Cardiolipin IgM Antibody <1.5 U/mL
[2025-01-16 06:39] LABS: African American GFR (CKD) >90 (>60 ml/min/1.73 sqM); Non-African American GFR(CKD) >90 (>60 ml/min/1.73 sqM)
[2025-01-16 11:43] LABS: APTT 30 Sec(s) (<43); Dilute Russell Viper Venom 35 Sec(s) (<44)
--- NOTE | 2025-01-16 14:34 | P.PN ---
Subjective Progress Note Date: 01/15/25 Principal diagnosis: Reason for follow-up is right foot cellulitis Patient is a 49-year-old female with a past medical history significant for atrial fibrillation hypertension PE hypothyroidism recent admission to the hospital treated for pneumonia now presenting to the hospital concerning of bilateral big toe discoloration more on the right side with associated pain CT angiogram did not show any evidence of vascular occlusion vascular surgery is following the patient ID consulted because of ascending lymphangitis on the right side concerning for cellulitis. On today's evaluation that is 01/15/2025 patient remains to be afebrile she is breathing slightly comfortably currently on 2 L nasal cannula oxygen denies any chest pain or worsening cough, no abdominal pain no pain to the right foot persist but no worsening. No CBC or BMP was done today Objective - Vital Signs Vital signs: Vital Signs Temp 98.0 F 01/15/25 07:24 Pulse 68 01/15/25 08:24 Resp 18 01/15/25 08:24 BP 191/104 01/15/25 07:24 Pulse Ox 93 L 01/15/25 09:09 FiO2 Intake & Output 01/14/25 01/15/25 01/15/25 18:59 06:59 18:59 Intake Total 720 Balance 720 Weight 90.718 kg Intake: Oral 720 Other: Voiding Method Toilet Toilet # Voids 3 3 - Exam GENERAL DESCRIPTION: Middle-age female lying in bed in no distress RESPIRATORY SYSTEM: Unlabored breathing , decreased breath sounds at bases HEART: S1 S2 regular rate and rhythm , ABDOMEN: Soft , no tenderness EXTREMITIES: Bilateral big toe with discoloration especially the right side with some erythema on the dorsum aspect of the right foot but no worsening - Labs CBC & Chem 7: 01/14/25 04:07 01/16/25 05:42 Labs: Microbiology - Last 24 Hours (Table) 01/12/25 06:00 Gram Stain - Final Sputum Sputum Culture - Final 01/13/25 11:00 Gram Stain - Final Toe - Right First Wound Culture - Final Assessment and Plan (1) Cellulitis of right foot Current Visit: Yes Status: Acute Priority: High Code(s): L03.115 - CELLULITIS OF RIGHT LOWER LIMB SNOMED Code(s): 63506752654222016 (2) Thrush Current Visit: Yes Status: Acute Code(s): B37.0 - CANDIDAL STOMATITIS SNOMED Code(s): 88589351 (3) Tracheobronchitis Current Visit: No Status: Acute Code(s): J40 - BRONCHITIS, NOT SPECIFIED ACUTE OR CHRONIC SNOMED Code(s): 66921949 Plan: 1patient presented to hospital with bilateral big toe discoloration and pain in this patient who did have CT did not show any peripheral arterial disease with a question of possibly macrovascular versus Burger disease and is being followed by vascular surgery and now with concern for possible developing lymphangitis /cellulitis especially to the right foot area likely from gram-positive skin rodolfo. 2patient with a penicillin allergy that will limit the number of antibiotics safe to use. 3patient did have evidence of thrush did have improvement to continue with nystatin swish and swallow 4patient is complaining of cough and greenish sputum production sputum cultures obtained which are currently pending local culture also obtained which are so far negative 5patient mentions some improvement in the pain, patient is currently treated cefepime and vancomycin and monitor clinical course closely Dictation was produced using [employer] dictation software. please excuse any grammatical, word or spelling errors. Time with Patient: Less than 30
--- NOTE | 2025-01-16 14:35 | P.PN ---
Subjective Progress Note Date: 01/16/25 Principal diagnosis: Reason for follow-up is right foot cellulitis Patient is a 49-year-old female with a past medical history significant for atrial fibrillation hypertension PE hypothyroidism recent admission to the hospital treated for pneumonia now presenting to the hospital concerning of bilateral big toe discoloration more on the right side with associated pain CT angiogram did not show any evidence of vascular occlusion vascular surgery is following the patient ID consulted because of ascending lymphangitis on the right side concerning for cellulitis. On today's evaluation that is 01/16/2025,the patient remains to be afebrile, patient is on room air not requiring supplemental oxygen and denies any shortness of breath no chest pain and cough is decreased intensity .Patient denies having any nausea or vomiting, no abdominal pain and no diarrhea swelling or pain to the right foot though controlled with pain medication. Patient complaint 0.76 no CBC was done today culture have been negative so far Objective - Vital Signs Vital signs: Vital Signs Temp 98.2 F 01/16/25 13:54 Pulse 68 01/16/25 13:54 Resp 17 01/16/25 13:54 BP 116/76 01/16/25 13:54 Pulse Ox 94 L 01/16/25 13:54 FiO2 Intake & Output 01/15/25 01/16/25 01/16/25 18:59 06:59 18:59 Intake Total 760 Balance 760 Intake: Oral 760 Other: Voiding Method Toilet Toilet Toilet # Voids 3 3 - Exam GENERAL DESCRIPTION: Middle-age female lying in bed in no distress RESPIRATORY SYSTEM: Unlabored breathing , decreased breath sounds at bases HEART: S1 S2 regular rate and rhythm , ABDOMEN: Soft , no tenderness EXTREMITIES: Right foot big and second toe is currently dressed no drainage erythema of the dorsum of the right foot is decreased - Labs CBC & Chem 7: 01/14/25 04:07 01/16/25 05:42 Labs: Abnormal Lab Results - Last 24 Hours (Table) 01/15/25 Range/Units 12:52 ESR 44 H (0-20) mm/Hr Microbiology - Last 24 Hours (Table) 01/13/25 11:00 Anaerobic Culture - Preliminary Toe - Right First 01/12/25 06:00 Gram Stain - Final Sputum Sputum Culture - Final Assessment and Plan (1) Cellulitis of right foot Current Visit: Yes Status: Acute Priority: High Code(s): L03.115 - CELLULITIS OF RIGHT LOWER LIMB SNOMED Code(s): 45808758984747205 (2) Thrush Current Visit: Yes Status: Acute Code(s): B37.0 - CANDIDAL STOMATITIS SNOM ED Code(s): 50467802 (3) Tracheobronchitis Current Visit: No Status: Acute Code(s): J40 - BRONCHITIS, NOT SPECIFIED ACUTE OR CHRONIC SNOMED Code(s): 76820637 Plan: 1patient presented to hospital with bilateral big toe discoloration and pain in this patient who did have CT did not show any peripheral arterial disease with a question of possibly macrovascular versus Burger disease and is being followed by vascular surgery and now with concern for possible developing lymphangitis/cellulitis especially to the right foot area likely from gram- positive skin rodolfo. 2patient with a penicillin allergy that will limit the number of antibiotics safe to use. 3patient did have evidence of thrush did have improvement to continue with nystatin swish and swallow 4patient is complaining of cough and greenish sputum production sputum cultures obtained which are currently pending local culture also obtained which are so far negative 5patient is afebrile right foot dorsum redness has decreased still have discoloration to the right great toe and left second toe hematology has been consulted and workup is in progress continue with empiric vancomycin and cefepime question answered Dictation was produced using [employer] dictation software. please excuse any grammatical, word or spelling errors. Time with Patient: Less than 30
[2025-01-16] MEDS: traMADol 50 MG TAB PO PRN (22:43)
--- NOTE | 2025-01-17 15:20 | P.PN ---
Subjective Progress Note Date: 01/17/25 Principal diagnosis: Reason for follow-up is right foot cellulitis Patient is a 49-year-old female with a past medical history significant for atrial fibrillation hypertension PE hypothyroidism recent admission to the hospital treated for pneumonia now presenting to the hospital concerning of bilateral big toe discoloration more on the right side with associated pain CT angiogram did not show any evidence of vascular occlusion vascular surgery is following the patient ID consulted because of ascending lymphangitis on the right side concerning for cellulitis. On today's evaluation that is 01/17/2025, the patient continues to be afebrile, the patient is on room air and breathing comfortably, the Pt denies having any chest pain cough is decreased in intensity, the patient denies having any abdominal pain no vomiting or any diarrhea still complaining of discoloration pain to the foot no decrease in intensity. Still complaining of oral sores and dysphagia No new lab has been repeated today Objective - Vital Signs Vital signs: Vital Signs Temp 98.5 F 01/17/25 07:38 Pulse 72 01/17/25 11:36 Resp 19 01/17/25 07:38 BP 136/86 01/17/25 07:38 Pulse Ox 94 L 01/17/25 07:56 FiO2 21 01/17/25 07:56 Intake & Output 01/16/25 01/17/25 01/17/25 18:59 06:59 18:59 Other: Voiding Method Toilet Toilet Toilet # Voids 3 3 - Exam GENERAL DESCRIPTION: Middle-age female lying in bed in no distress RESPIRATORY SYSTEM: Unlabored breathing , decreased breath sounds at bases HEART: S1 S2 regular rate and rhythm , ABDOMEN: Soft , no tenderness EXTREMITIES: Right foot big and second toe is currently dressed no drainage francisco javier thema of the dorsum of the right foot is decreased - Labs CBC & Chem 7: 01/14/25 04:07 01/16/25 05:42 Labs: Microbiology - Last 24 Hours (Table) 01/13/25 11:00 Anaerobic Culture - Final Toe - Right First Assessment and Plan (1) Cellulitis of right foot Current Visit: Yes Status: Acute Priority: High Code(s): L03.115 - CELLULITIS OF RIGHT LOWER LIMB SNOMED Code(s): 27992286904333974 (2) Thrush Current Visit: Yes Status: Acute Code(s): B37.0 - CANDIDAL STOMATITIS SNOMED Code(s): 39984933 (3) Tracheobronchitis Current Visit: No Status: Acute Code(s): J40 - BRONCHITIS, NOT SPECIFIED ACUTE OR CHRONIC SNOMED Code(s): 10199284 Plan: 1patient presented to hospital with bilateral big toe discoloration and pain in this patient who did have CT did not show any peripheral arterial disease with a question of possibly macrovascular versus Burger disease and is being followed by vascular surgery and now with concern for possible developing lymphangitis/cellulitis especially to the right foot area likely from gram- positive skin rodolfo. 2patient with a penicillin allergy that will limit the number of antibiotics safe to use. 3patient did have evidence of thrush and is not complaining of persistent syndrome as well as some dysphagia concern for possible oropharyngeal jules diasis will add Diflucan continue Desitin swish and swallow 4patient is complaining of cough and greenish sputum production sputum cultures obtained which are currently pending local culture also obtained which are so far negative 5patient is afebrile right foot dorsum redness has decreased still have discoloration to the right great toe and left second toe hematology and vascular surgery following the patient with a culture negative for MRSA vancomycin will be discontinued continue cefepime Dictation was produced using [employer] dictation software. please excuse any grammatical, word or spelling errors. Time with Patient: Less than 30
[2025-01-17] MEDS: FLUCONAZOLE 100 MG TAB PO SCH (16:35)
--- NOTE | 2025-01-17 17:32 | P.PN ---
Subjective Progress Note Date: 01/17/25 No acute events overnight. Pt reports they are looking to transfer pt to [facility] for second opinion. Continues on IV abx and steroids Objective - Vital Signs Vital signs: Vital Signs Temp 98.3 F 01/17/25 13:24 Pulse 72 01/17/25 13:24 Resp 19 01/17/25 13:24 BP 114/76 01/17/25 13:24 Pulse Ox 94 L 01/17/25 13:24 FiO2 21 01/17/25 07:56 Intake & Output 01/16/25 01/17/25 01/17/25 18:59 06:59 18:59 Other: Voiding Method Toilet Toilet Toilet # Voids 3 3 - Constitutional General appearance: Present: no acute distress - EENT Eyes: Present: anicteric sclerae, EOMI ENT: Present: hearing grossly normal - Respiratory Details: breathing is even and unlabored - Psychiatric Psychiatric: Present: A&O x's 3 - Labs CBC & Chem 7: 01/14/25 04:07 01/16/25 05:42 Labs: Microbiology - Last 24 Hours (Table) 01/13/25 11:00 Anaerobic Culture - Final Toe - Right First Assessment and Plan (1) Cellulitis of right foot Current Visit: Yes Status: Acute Priority: High Code(s): L03.115 - CELLULITIS OF RIGHT LOWER LIMB SNOMED Code(s): 02450040556335870 (2) Bilateral leg numbness Current Visit: Yes Status: Acute Code(s): R20.0 - ANESTHESIA OF SKIN SNOMED Code(s): 419072971 (3) Discoloration of nailbeds Current Visit: Yes Status: Acute Priority: High Code(s): L60.8 - OTHER NAIL DISORDERS SNOMED Code(s): 36957145 Plan: Toe necrosis, arterial insufficiency: Presented to the emergency department for discoloration of her toes. She has a significant past medical history of recent hospital admission for pneumonia, smoker, etoh abuse, atrial fibrillation, hypertension, and pulmonary embolism. Patient reports during admission earlier this month for pneumonia she began nevarez ving bilateral fingertips and toe numbness and tingling. Upon discharge she noted black discoloration to her toes at which time she presented for further evaluation. Patient does report she had a pulmonary embolism in 2023 which was thought to be provoked by the COVID vaccine per patient and was on Eliquis for 6 months. As stated above patient was admitted earlier this month for pneumonia, patient also reports she had COVID in early November of this year -Patient has had extensive workup since admit on 01/07/2024 with vascular surgery following. No evidence of vascular occlusion on imaging obtained. No plan for vascular intervention at this time, plan to f/u outpt. Stating symptoms could be r/t possible Buerger's disease? Infectious disease also following and currently treating patient with IV antibiotics for possible cellulitis and tracheobronchitis. She also has continued on IV steroids. -Upon review of labs since admit, CRP elevated at 5.1. Coags WNL. WBC 14.6, hemoglobin 12.0, platelets 267,000. MAKENZIE/RF negative -Will obtain ESR, and APLS workup. BLE dopplers will also be obtained to r/o VTEs. CTA chest on 12/21/24 was negative -BLE dopplers negative for DVTs. ESR 44. Thus far APLS workup negative, Beta-2 glycoprotein still pending -Clinic f/u upon discharge to complete hypercoaguable workup. APLS can increase risk for venous/arterial clots, will provide further recommendations pending workup -Patient will need close f/u with vascular surgery. Possible transfer to [facility] for second opinion? attests: I have seen and examined pt, performed H&P, developed impression and plan of care. Discussed with dictator. Agree with documentation, dictated as a scribe.
--- NOTE | 2025-01-17 19:00 | P.PN ---
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 Toes are covered with dressing. Patient is afebrile, oxygen saturation 94%. CT chest finding and duplex ultrasound of the legs reviewed 49-year-old female with extensive history of smoking and nicotine use about 1 pack/day for 20 to 25 years quit few weeks ago, she was hospitalized for pneumonia few weeks ago and was treated and subsequently was discharged, she started having numbness and tingling in the toes around December subsequently they turn purple and black, currently her right big toe and third toe is cold and cyanosed also left second and third toe is cold and cyanosed with evidence of cyanosis at the sole of foot bilaterally. Vascular surgery has evaluated the patient, patient had a CT angio with no evidence of obstruction or atherosclerosis seen. Earlier today she had intermittent cough a CT scan of the chest was performed, some scarring was noted along with atelectasis and right upper lobe and right middle lobe and lingula no mass identified, currently patient is on pain medicine along with bronchodilator, broad-spectrum antibiotics with cefepime has been on Solu-Medrol as well Significant prior medical issues include history of DVT PE about 3 years ago for which she was treated, history of smoking and COPD, chronic atrial fibrillation not on any anticoagulation, hypertension hypertensive cardiovascular disease, history of chronic back pain and pancreatitis Objective - Vital Signs Vital signs: Vital Signs Temp 98.3 F 01/17/25 13:24 Pulse 72 01/17/25 13:24 Resp 19 01/17/25 13:24 BP 114/76 01/17/25 13:24 Pulse Ox 94 L 01/17/25 13:24 FiO2 21 01/17/25 07:56 Intake & Output 01/16/25 01/17/25 01/17/25 18:59 06:59 18:59 Other: Voiding Method Toilet Toilet Toilet # Voids 3 3 4 # Bowel Movements 1 - Exam - Constitutional General appearance: average body habitus, cooperative, disheveled - EENT Eyes: EOMI, PERRLA ENT: normal oropharynx Ears: bilateral: normal - Neck Neck: normal ROM Carotids: bilateral: upstroke normal Thyroid: negative: normal size - Respiratory Respiratory: bilateral: CTA - Cardiovascular Rhythm: regular Heart sounds: normal: S1, S2 - Integumentary Integumentary: normal turgor - Neurologic Neurologic: CNII-XII intact - Musculoskeletal Musculoskeletal: gait normal, generalized weakness, strength equal bilaterally - Psychiatric Psychiatric: A&O x's 3, appropriate affect Right big toe and third toe cyanosed cold to touch with cyanosis at the well- circumscribed at the sole of the foot, cyanotic changes also noted in the left second and third toe with similar finding on sole of foot like right - Labs CBC & Chem 7: 01/14/25 04:07 01/16/25 05:42 Labs: Microbiology - Last 24 Hours (Table) 01/13/25 11:00 Anaerobic Culture - Final Toe - Right First Assessment and Plan Assessment: Subsegmental atelectasis on the right upper lobe as well as lingula lobe likely resolving pneumonia, agree with broad-spectrum antibiotics COPD with acute exacerbation, IV steroids bronchodilator supportive care 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
--- NOTE | 2025-01-18 11:11 | P.PN ---
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, vascular surgery has been following Would recommend to continue patient on DVT prophylaxis as well assess bilateral lower extremity swelling Fluid overload third spacing, continue gentle diuresis, Cellulitis of the toes, broad-spectrum antibiotics cefepime and vancomycin Hypertension hypertensive cardiovascular disease continue diltiazem and losartan History of smoking and nicotine use, smoking cessation counseling advised and nicotine patch January 18, 2025, patient seen eval examined during rounds labs reviewed medications reviewed care plan discussed, dressing from both feet and toes has been removed, edema slightly better, no exudate or discharge seen, toes remains cold. Patient remains on pain management with Tylenol, antidepressant therapy with trazodone patient is being continued on home medicine including Synthroid and metoprolol, remains on broad-spectrum antibiotic with cefepime tolerating well, patient is being gently treated diuresed with Bumex with 1 mg daily has been on bronchodilators as well Solu-Medrol is 40 Q8 will recommend to lower it down slowly bring it down to every 12, check labs tomorrow January 17, 2025, patient seen evaluate examined, slightly better in terms of shortness of breath, lower extremity edema is present, patient continued to be on DVT prophylaxis with Lovenox. Toes are covered with dressing. Patient is afebrile, oxygen saturation 94%. CT chest finding and duplex ultrasound of the legs reviewed 49-year-old female with extensive history of smoking and nicotine use about 1 pack/day for 20 to 25 years quit few weeks ago, she was hospitalized for pneumonia few weeks ago and was treated and subsequently was discharged, she started having numbness and tingling in the toes around 5 december subsequently they turn purple and black, currently her right big toe and third toe is cold and cyanosed also left second and third toe is cold and cyanosed with evidence of cyanosis at the sole of foot bilaterally. Vascular surgery has evaluated the patient, patient had a CT angio with no evidence of obstruction or atherosclerosis seen. Earlier today she had intermittent cough a CT scan of the chest was performed, some scarring was noted along with atelectasis and right upper lobe and right middle lobe and lingula no mass identified, currently patient is on pain medicine along with bronchodilator, broad-spectrum antibiotics with cefepime has been on Solu-Medrol as well Significant prior medical issues include history of DVT PE about 3 years ago for which she was treated, history of smoking and COPD, chronic atrial fibrillation not on any anticoagulation, hypertension hypertensive cardiovascular disease, history of chronic back pain and pancreatitis Objective - Vital Signs Vital signs: Vital Signs Temp 98.0 F 01/18/25 07:18 Pulse 63 01/18/25 08:00 Resp 15 01/18/25 08:00 BP 151/98 01/18/25 07:18 Pulse Ox 97 01/18/25 07:18 FiO2 21 01/17/25 07:56 Intake & Output 01/17/25 01/18/25 01/18/25 18:59 06:59 18:59 Intake Total 2307 Balance 2307 Intake: Oral 2307 Other: Voiding Method Toilet Toilet Toilet # Voids 4 6 6 # Bowel Movements 1 1 - Exam - Constitutional General appearance: average body habitus, cooperative, disheveled - EENT Eyes: EOMI, PERRLA ENT: normal oropharynx Ears: bilateral: normal - Neck Neck: normal ROM Carotids: bilateral: upstroke normal Thyroid: negative: normal size - Respiratory Respiratory: bilateral: CTA - Cardiovascular Rhythm: regular Heart sounds: normal: S1, S2 - Integumentary Integumentary: normal turgor - Neurologic Neurologic: CNII-XII intact - Musculoskeletal Musculoskeletal: gait normal, generalized weakness, strength equal bilaterally - Psychiatric Psychiatric: A&O x's 3, appropriate affect Right big toe and third toe cyanosed cold to touch with cyanosis at the well- circumscribed at the sole of the foot, cyanotic changes also noted in the left second and third toe with similar finding on sole of foot like right - Labs CBC & Chem 7: 01/14/25 04:07 01/16/25 05:42 Labs: Microbiology - Last 24 Hours (Table) 01/13/25 11:00 Anaerobic Culture - Final Toe - Right First Assessment and Plan Assessment: Subsegmental atelectasis on the right upper lobe as well as lingula lobe likely resolving pneumonia, agree with broad-spectrum antibiotics COPD with acute exacerbation, IV steroids bronchodilator supportive care, slow taper 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
--- NOTE | 2025-01-18 14:05 | P.PN ---
Subjective Progress Note Date: 01/18/25 Principal diagnosis: Reason for follow-up is right foot cellulitis Patient is a 49-year-old female with a past medical history significant for atrial fibrillation hypertension PE hypothyroidism recent admission to the hospital treated for pneumonia now presenting to the hospital concerning of bilateral big toe discoloration more on the right side with associated pain CT angiogram did not show any evidence of vascular occlusion vascular surgery is following the patient ID consulted because of ascending lymphangitis on the right side concerning for cellulitis. On today's evaluation that is 01/18/2025, patient did not have any fever and denies any chills, patient is breathing comfortably on room air, patient with no chest pain or cough patient did not have any abdominal pain nausea vomiting or any loose stools pain to the right foot slightly decreased in intensity. No new lab has been obtained today culture remains to be negative Objective - Vital Signs Vital signs: Vital Signs Temp 98.0 F 01/18/25 07:18 Pulse 63 01/18/25 08:00 Resp 15 01/18/25 08:00 BP 151/98 01/18/25 07:18 Pulse Ox 97 01/18/25 07:18 FiO2 21 01/17/25 07:56 Intake & Output 01/17/25 01/18/25 01/18/25 18:59 06:59 18:59 Intake Total 2307 Balance 2307 Intake: Oral 2307 Other: Voiding Method Toilet Toilet Toilet # Voids 4 6 6 # Bowel Movements 1 1 - Exam GENERAL DESCRIPTION: Middle-age female lying in bed in no distress RESPIRATORY SYSTEM: Unlabored breathing , decreased breath sounds at bases HEART: S1 S2 regular rate and rhythm , ABDOMEN: Soft , no tenderness EXTREMITIES: Right foot big and second toe is currently dressed no drainage erythema of the dorsum of the right foot is decreased - Labs CBC & Chem 7: 01/14/25 04:07 01/16/25 05:42 Labs: Microbiology - Last 24 Hours (Table) 01/13/25 11:00 Anaerobic Culture - Final Toe - Right First Assessment and Plan (1) Cellulitis of right foot Current Visit: Yes Status: Acute Priority: High Code(s): L03.115 - CELLULITIS OF RIGHT LOWER LIMB SNOMED Code(s): 28102056170515513 (2) Thrush Current Visit: Yes Status: Acute Code(s): B37.0 - CANDIDAL STOMATITIS SNOMED Code(s): 69404973 (3) Tracheobronchitis Current Visit: No Status: Acute Code(s): J40 - BRONCHITIS, NOT SPECIFIED ACUTE OR CHRONIC SNOMED Code(s): 75727623 Plan: 1patient presented to hospital with bilateral big toe discoloration and pain in this patient who did have CT did not show any peripheral arterial disease with a question of possibly macrovascular versus Burger disease and is being followed by vascular surgery and now with concern for possible developing ly mphangitis/cellulitis especially to the right foot area likely from gram- positive skin rodolfo. 2patient with a penicillin allergy that will limit the number of antibiotics safe to use. 3patient did have evidence of thrush and is not complaining of persistent syndrome as well as some dysphagia concern for possible oropharyngeal candidiasis will add Diflucan continue Desitin swish and swallow 4patient is complaining of cough and greenish sputum production sputum cultures obtained which are currently pending local culture also obtained which are so far negative 5patient is afebrile right foot dorsum redness has decreased still have discoloration to the right great toe and left second toe hematology and vascular surgery following the 6-patient will be treated with cefepime for the cellulitis we will check her CBC and BMP with a.m. lab Dictation was produced using [employer] dictation software. please excuse any grammatical, word or spelling errors. Time with Patient: Less than 30
[2025-01-18] MEDS: methylPREDNISolone SOD SUCCI 40 MG/ML 1 ML VIAL IV SCH (21:23)
[2025-01-19 09:33] LABS: Basophils # (A) 0.05 X 10*3/uL (0.00-0.10); Basophils % (A) 0.4 %; Eosinophils # (A) 0.01 X 10*3/uL (0.04-0.35); Eosinophils % (A) 0.1 %; HCT 37.4 % (37.2-46.3); HGB 11.7 g/dL (12.0-15.0); Lymphocytes % (A) 8.1 %; MCH 32.4 pg (27.0-32.0); MCHC 31.3 g/dL (32.0-37.0); MCV 103.6 FL (80.0-97.0); Mean Platelet Volume 10.1 FL (9.5-12.2); Monocytes # (A) 0.82 X 10*3/uL (0.20-1.00); Monocytes % (A) 6.1 %; NRBC Per 100 WBC 0 X 10*3/uL (0.00-0.01); Neutrophils # (A) 11.36 X 10*3/uL (1.80-7.70); Neutrophils % (A) 84.1 %; Platelet Count 277 X 10*3/uL (140-440); RBC 3.61 X 10*6/uL (4.10-5.20); RDW 16.8 % (11.5-14.5)
[2025-01-19 10:15] LABS: BUN/Creat Ratio 34.67 Ratio (12.00-20.00); Blood Urea Nitrogen 31.2 mg/dL (9.0-27.0); Carbon Dioxide 26.6 mmol/L (21.6-31.8); Chloride 100 mmol/L (96-109); Glucose 287 mg/dL (70-110); Potassium 5.2 mmol/L (3.5-5.5); Sodium 137 mmol/L (135-145)
[2025-01-19 10:16] LABS: ALT 71 U/L (8-44); AST 26 U/L (13-35); Albumin 3.8 g/dL (3.8-4.9); Albumin/Globulin Ratio 1.73 Ratio (1.60-3.17); Alkaline Phosphatase 105 U/L (41-126); Calcium 9.5 mg/dL (8.7-10.3); Globulin 2.2 g/dL (1.6-3.3); Total Bilirubin <0.2 mg/dL (0.3-1.2)
--- NOTE | 2025-01-19 11:49 | P.PN ---
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, vascular surgery has been following Would recommend to continue patient on DVT prophylaxis as well assess bilateral lower extremity swelling Fluid overload third spacing, continue gentle diuresis, Cellulitis of the toes, broad-spectrum antibiotics cefepime and vancomycin Hypertension hypertensive cardiovascular disease continue diltiazem and losartan History of smoking and nicotine use, smoking cessation counseling advised and nicotine patch January 19, 2025, mild shortness of breath is present, patient had a breathing treatment earlier this morning able to cough out the secretions, feeling better, continue on bronchodilators along with IV steroids tolerating well, patient is being anticoagulated with Lovenox, patient is being continued on fluconazole for oral thrush and cefepime for cellulitis of the toes, patient is off of vancom ycin patient has been counseled about smoking cessation, patient is being evaluated for possible endoscopy tomorrow January 18, 2025, patient seen eval examined during rounds labs reviewed m edications reviewed care plan discussed, dressing from both feet and toes has been removed, edema slightly better, no exudate or discharge seen, toes remains cold. Patient remains on pain management with Tylenol, antidepressant therapy with trazodone patient is being continued on home medicine including Synthroid and metoprolol, remains on broad-spectrum antibiotic with cefepime tolerating well, patient is being gently treated diuresed with Bumex with 1 mg daily has been on bronchodilators as well Solu-Medrol is 40 Q8 will recommend to lower it down slowly bring it down to every 12, check labs tomorrow January 17, 2025, patient seen evaluate examined, slightly better in terms of shortness of breath, lower extremity edema is present, patient continued to be on DVT prophylaxis with Lovenox. Toes are covered with dressing. Patient is afebrile, oxygen saturation 94%. CT chest finding and duplex ultrasound of the legs reviewed 49-year-old female with extensive history of smoking and nicotine use about 1 pack/day for 20 to 25 years quit few weeks ago, she was hospitalized for pneumonia few weeks ago and was treated and subsequently was discharged, she started having numbness and tingling in the toes around December subsequently they turn purple and black, currently her right big toe and third toe is cold and cyanosed also left second and third toe is cold and cyanosed with evidence of cyanosis at the sole of foot bilaterally. Vascular surgery has evaluated the patient, patient had a CT angio with no evidence of obstruction or atherosclerosis seen. Earlier today she had intermittent cough a CT scan of the chest was performed, some scarring was noted along with atelectasis and right upper lobe and right middle lobe and lingula no mass identified, currently patient is on pain medicine along with bronchodilator, broad-spectrum antibiotics with cefepime has been on Solu-Medrol as well Significant prior medical issues include history of DVT PE about 3 years ago for which she was treated, history of smoking and COPD, chronic atrial fibrillation not on any anticoagulation, hypertension hypertensive cardiovascular disease, history of chronic back pain and pancreatitis Objective - Vital Signs Vital signs: Vital Signs Temp 98.5 F 01/19/25 07:21 Pulse 64 01/19/25 09:28 Resp 16 01/19/25 07:53 BP 129/83 01/19/25 07:21 Pulse Ox 95 01/19/25 07:21 FiO2 21 01/17/25 07:56 Intake & Output 01/18/25 01/19/25 01/19/25 17:59 06:59 18:59 Intake Total Balance Intake: Oral Other: Voiding Method Toilet # Voids # Bowel Movements - Exam - Constitutional General appearance: average body habitus, cooperative, disheveled - EENT Eyes: EOMI, PERRLA ENT: normal oropharynx Ears: bilateral: normal - Neck Neck: normal ROM Carotids: bilateral: upstroke normal Thyroid: negative: normal size - Respiratory Respiratory: bilateral: CTA - Cardiovascular Rhythm: regular Heart sounds: normal: S1, S2 - Integumentary Integumentary: normal turgor - Neurologic Neurologic: CNII-XII intact - Musculoskeletal Musculoskeletal: gait normal, generalized weakness, strength equal bilaterally - Psychiatric Psychiatric: A&O x's 3, appropriate affect Right big toe and third toe cyanosed cold to touch with cyanosis at the well-circumscribed at the sole of the foot, cyanotic changes also noted in the left second and third toe with similar finding on sole of foot like right - Labs CBC & Chem 7: 01/19/25 05:48 01/19/25 05:48 Labs: Abnormal Lab Results - Last 24 Hours (Table) 01/19/25 01/19/25 Range/Units 05:48 05:48 WBC 13.50 H (4.50-10.00) X 10*3/uL RBC 3.61 L (4.10-5.20) X 10*6/uL Hgb 11.7 L (12.0-15.0) g/dL MCV 103.6 H (80.0-97.0) FL MCH 32.4 H (27.0-32.0) pg MCHC 31.3 L (32.0-37.0) g/dL RDW 16.8 H (11.5-14.5) % Immature Gran # 0.16 H (0.00-0.04) X 10*3/uL Neutrophils # 11.36 H (1.80-7.70) X 10*3/uL Eosinophils # 0.01 L (0.04-0.35) X 10*3/uL BUN 31.2 H (9.0-27.0) mg/dL BUN/Creatinine Ratio 34.67 H (12.00-20.00) Ratio Glucose 287 H (70-110) mg/dL Total Bilirubin <0.2 L (0.3-1.2) mg/dL ALT 71 H (8-44) U/L Total Protein 6.0 L (6.2-8.2) g/dL Assessment and Plan Assessment: COPD with acute exacerbation, IV steroids bronchodilator supportive care, slow taper 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, vascular surgery has been following Would recommend to continue patient on DVT prophylaxis as well assess bilateral lower extremity swellig Subsegmental atelectasis on the right upper lobe as well as lingula lobe likely resolving pneumonia, agree with broad-spectrum antibiotics Fluid overload third spacing, continue gentle diuresis, Cellulitis of the toes, broad-spectrum antibiotics cefepime and vancomycin Hypertension hypertensive cardiovascular disease continue diltiazem and losartan History of smoking and nicotine use, smoking cessation counseling advised and nicotine patch Plan: As above Time with Patient: Greater than 30
--- NOTE | 2025-01-19 15:14 | P.PN ---
Subjective Progress Note Date: 01/19/25 Principal diagnosis: Reason for follow-up is right foot cellulitis Patient is a 49-year-old female with a past medical history significant for atrial fibrillation hypertension PE hypothyroidism recent admission to the hospital treated for pneumonia now presenting to the hospital concerning of bilateral big toe discoloration more on the right side with associated pain CT angiogram did not show any evidence of vascular occlusion vascular surgery is following the patient ID consulted because of ascending lymphangitis on the right side concerning for cellulitis. On today's evaluation that is 01/19/2025, Patient is afebrile patient is currently on 2 L current oxygen and denies having any shortness of breath, the patient denies any chest pain still complains of complains of some sputum, the patient denies any nausea vomiting did not have any abdominal pain and no diarrhea, pain to the right foot slightly decreased. Patient white count is 13.50, creatinine 0.9 Objective - Vital Signs Vital signs: Vital Signs Temp 98.5 F 01/19/25 07:21 Pulse 64 01/19/25 09:28 Resp 16 01/19/25 07:53 BP 129/83 01/19/25 07:21 Pulse Ox 95 01/19/25 07:21 FiO2 21 01/17/25 07:56 Intake & Output 01/18/25 01/19/25 01/19/25 17:59 06:59 18:59 Intake Total Balance Intake: Oral Other: Voiding Method Toilet # Voids # Bowel Movements - Exam GENERAL DESCRIPTION: Middle-age female lying in bed in no distress RESPIRATORY SYSTEM: Unlabored breathing , decreased breath sounds at bases HEART: S1 S2 regular rate and rhythm , ABDOMEN: Soft , no tenderness EXTREMITIES: Right foot big is currently dressed second toe with minimal discoloration redness on the dorsum has resolved - Labs CBC & Chem 7: 01/19/25 05:48 01/19/25 05:48 Labs: Abnormal Lab Results - Last 24 Hours (Table) 01/19/25 01/19/25 Range/Units 05:48 05:48 WBC 13.50 H (4.50-10.00) X 10*3/uL RBC 3.61 L (4.10-5.20) X 10*6/uL Hgb 11.7 L (12.0-15.0) g/dL MCV 103.6 H (80.0-97.0) FL MCH 32.4 H (27.0-32.0) pg MCHC 31.3 L (32.0-37.0) g/dL RDW 16.8 H (11.5-14.5) % Immature Gran # 0.16 H (0.00-0.04) X 10*3/uL Neutrophils # 11.36 H (1.80-7.70) X 10*3/uL Eosinophils # 0.01 L (0.04-0.35) X 10*3/uL BUN 31.2 H (9.0-27.0) mg/dL BUN/Creatinine Ratio 34.67 H (12.00-20.00) Ratio Glucose 287 H (70-110) mg/dL Total Bilirubin <0.2 L (0.3-1.2) mg/dL ALT 71 H (8-44) U/L Total Protein 6.0 L (6.2-8.2) g/dL Assessment and Plan (1) Cellulitis of right foot Current Visit: Yes Status: Acute Priority: High Code(s): L03.115 - CELLULITIS OF RIGHT LOWER LIMB SNOMED Code(s): 61147999024074749 (2) Thrush Current Visit: Yes Status: Acute Code(s): B37.0 - CANDIDAL STOMATITIS SNOMED Code(s): 20854853 (3) Tracheobronchitis Current Visit: No Status: Acute Code(s): J40 - BRONCHITIS, NOT SPECIFIED ACUTE OR CHRONIC SNOMED Code(s): 24710434 Plan: 1patient presented to hospital with bilateral big toe discoloration and pain in this patient who did have CT did not show any peripheral arterial disease with a question of possibly macrovascular versus Burger disease and is being followed by vascular surgery and now with concern for possible developing lymphangitis/cellulitis especially to the right foot area likely from gram- positive skin rodolfo. 2patient with a penicillin allergy that will limit the number of antibiotics safe to use. 3patient did have evidence of thrush and is not complaining of persistent syndrome as well as some dysphagia concern for possible oropharyngeal candidiasis continue with Diflucan and nystatin swish and swallow 4patient is complaining of cough and greenish sputum production sputum cultures obtained which are currently pending local culture also obtained which are so far negative 5patient is afebrile right foot dorsum redness has decreased still have discoloration to the right great toe and left second toe hematology and vascular surgery following the 6-patient white count slightly down to 13,000, continue with cefepime and monitor clinical course closely Dictation was produced using [employer] dictation software. please excuse any grammatical, word or spelling errors. Time with Patient: Less than 30
--- NOTE | 2025-01-20 10:56 | P.PN ---
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, vascular surgery has been following Would recommend to continue patient on DVT prophylaxis as well assess bilateral lower extremity swelling Fluid overload third spacing, continue gentle diuresis, Cellulitis of the toes, broad-spectrum antibiotics cefepime and vancomycin Hypertension hypertensive cardiovascular disease continue diltiazem and losartan History of smoking and nicotine use, smoking cessation counseling advised and nicotine patch January 20/2025, patient seen eval examined, respiratory status slightly improved with breathing treatments, still have some scratchy sensation in throat patient has been on oral Diflucan, no significant change in the toes has been noted however more right Heema and edema in the feet noted suggestive of secondary infection, patient remains on broad-spectrum antibiotics ID service and vascular surgery following patient is being considered for transfer to tertiary care center January 19, 2025, mild shortness of breath is present, patient had a breathing treatment earlier this morning able to cough out the secretions, feeling better, continue on bronchodilators along with IV steroids tolerating well, patient is being anticoagulated with Lovenox, patient is being continued on fluconazole for oral thrush and cefepime for cellulitis of the toes, patient is off of vancomycin patient has been counseled about smoking cessation, patient is being evaluated for possible endoscopy tomorrow January 18, 2025, patient seen eval examined during rounds labs reviewed medications reviewed care plan discussed, dressing from both feet and toes has been removed, edema slightly better, no exudate or discharge seen, toes remains cold. Patient remains on pain management with Tylenol, antidepressant therapy with trazodone patient is being continued on home medicine including Synthroid and metoprolol, remains on broad-spectrum antibiotic with cefepime tolerating well, patient is being gently treated diuresed with Bumex with 1 mg daily has been on bronchodilators as well Solu-Medrol is 40 Q8 will recommend to lower it down slowly bring it down to every 12, check labs tomorrow January 17, 2025, patient seen evaluate examined, slightly better in terms of shortness of breath, lower extremity edema is present, patient continued to be on DVT prophylaxis with Lovenox. Toes are covered with dressing. Patient is afebrile, oxygen saturation 94%. CT chest finding and duplex ultrasound of the legs reviewed 49-year-old female with extensive history of smoking and nicotine use about 1 pack/day for 20 to 25 years quit few weeks ago, she was hospitalized for pneumonia few weeks ago and was treated and subsequently was discharged, she started having numbness and tingling in the toes around December subsequently they turn purple and black, currently her right big toe and third toe is cold and cyanosed also left second and third toe is cold and cyanosed with evidence of cyanosis at the sole of foot bilaterally. Vascular surgery has evaluated the patient, patient had a CT angio with no evidence of obstruction or atherosclerosis seen. Earlier today she had intermittent cough a CT scan of the chest was performed, some scarring was noted along with atelectasis and right upper lobe and right middle lobe and lingula no mass identified, currently patient is on pain medicine along with bronchodilator, broad-spectrum antibiotics with cefepime has been on Solu-Medrol as well Significant prior medical issues include history of DVT PE about 3 years ago for which she was treated, history of smoking and COPD, chronic atrial fibrillation not on any anticoagulation, hypertension hypertensive cardiovascular disease, history of chronic back pain and pancreatitis Objective - Vital Signs Vital signs: Vital Signs Temp 98.3 F 01/20/25 06:51 Pulse 60 01/20/25 06:51 Resp 18 01/20/25 06:51 BP 142/81 01/20/25 06:51 Pulse Ox 96 01/20/25 06:51 FiO2 21 01/17/25 07:56 Intake & Output 01/19/25 01/20/25 01/20/25 18:59 06:59 18:59 Intake Total 3350 Balance 3350 Intake: Oral 3350 Other: Voiding Method Toilet # Voids 3 6 - Exam - Constitutional General appearance: average body habitus, cooperative, disheveled - EENT Eyes: EOMI, PERRLA ENT: normal oropharynx Ears: bilateral: normal - Neck Neck: normal ROM Carotids: bilateral: upstroke normal Thyroid: negative: normal size - Respiratory Respiratory: bilateral: CTA - Cardiovascular Rhythm: regular Heart sounds: normal: S1, S2 - Integumentary Integumentary: normal turgor - Neurologic Neurologic: CNII-XII intact - Musculoskeletal Musculoskeletal: gait normal, generalized weakness, strength equal bilaterally - Psychiatric Psychiatric: A&O x's 3, appropriate affect Right big toe and third toe cyanosed cold to touch with cyanosis at the well- circumscribed at the sole of the foot, cyanotic changes also noted in the left second and third toe with similar finding on sole of foot like right - Labs CBC & Chem 7: 01/19/25 05:48 01/19/25 05:48 Assessment and Plan Assessment: COPD with acute exacerbation, IV steroids bronchodilator supportive care, slow taper 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, vascular surgery has been following Would recommend to continue patient on DVT prophylaxis as well assess bilateral lower extremity swellig Subsegmental atelectasis on the right upper lobe as well as lingula lobe likely resolving pneumonia, agree with broad-spectrum antibiotics Fluid overload third spacing, continue gentle diuresis, Cellulitis of the toes, broad-spectrum antibiotics cefepime and vancomycin Hypertension hypertensive cardiovascular disease continue diltiazem and losartan History of smoking and nicotine use, smoking cessation counseling advised and nicotine patch Plan: As above Time with Patient: Greater than 30
--- NOTE | 2025-01-20 15:24 | P.PN ---
Subjective Progress Note Date: 01/20/25 Principal diagnosis: Reason for follow-up is right foot cellulitis Patient is a 49-year-old female with a past medical history significant for atrial fibrillation hypertension PE hypothyroidism recent admission to the hospital treated for pneumonia now presenting to the hospital concerning of bilateral big toe discoloration more on the right side with associated pain CT angiogram did not show any evidence of vascular occlusion vascular surgery is following the patient ID consulted because of ascending lymphangitis on the right side concerning for cellulitis. On today's evaluation that is 01/20/2025, patient has been afebrile, patient is breathing comfortably and is currently on room air, patient denies having any chest pain still complaining of cough and bring up some sputum no nausea or vomiting no abdominal pain or diarrhea still have discoloration of the right big toe. Patient white count is 13.50 as of yesterday creatinine 0.9 no CBC was done today culture has been negative Objective - Vital Signs Vital signs: Vital Signs Temp 98.3 F 01/20/25 13:46 Pulse 60 01/20/25 13:46 Resp 18 01/20/25 13:46 BP 114/76 01/20/25 13:46 Pulse Ox 98 01/20/25 13:46 FiO2 21 01/17/25 07:56 Intake & Output 01/19/25 01/20/25 01/20/25 18:59 06:59 18:59 Intake Total 3350 Balance 3350 Intake: Oral 3350 Other: Voiding Method Toilet Toilet # Voids 3 6 - Exam GENERAL DESCRIPTION: Middle-age female lying in bed in no distress RESPIRATORY SYSTEM: Unlabored breathing , decreased breath sounds at bases HEART: S1 S2 regular rate and rhythm , ABDOMEN: Soft , no tenderness EXTREMITIES: Right foot big is currently dressed second toe with minimal discoloration redness on the dorsum has resolved - Labs CBC & Chem 7: 01/19/25 05:48 01/19/25 05:48 Assessment and Plan (1) Cellulitis of right foot Current Visit: Yes Status: Acute Priority: High Code(s): L03.115 - CELLULITIS OF RIGHT LOWER LIMB SNOMED Code(s): 04521163929203762 (2) Thrush Current Visit: Yes Status: Acute Code(s): B37.0 - CANDIDAL STOMATITIS SNOMED Code(s): 52131351 (3) Tracheobronchitis Current Visit: No Status: Acute Code(s): J40 - BRONCHITIS, NOT SPECIFIED ACUTE OR CHRONIC SNOMED Code(s): 95009584 Plan: 1patient presented to hospital with bilateral big toe discoloration and pain in this patient who did have CT did not show any peripheral arterial disease with a question of possibly macrovascular versus Burger disease and is being followed by vascular surgery and now with concern for possible developing lymphangitis/cellulitis especially to the right foot area likely from gram- positive skin rodolfo. 2patient with a penicillin allergy that will limit the number of antibiotics safe to use. 3patient did have evidence of thrush and is not complaining of persistent syndrome as well as some dysphagia concern for possible oropharyngeal candidiasis continue with Diflucan and nystatin swish and swallow 4patient is complaining of cough and greenish sputum production sputum cultures obtained which are currently pending local culture also obtained which are so far negative 5patient is afebrile right foot dorsum redness has decreased still have discoloration to the right great toe and left second toe hematology and vascular surgery following the 6-patient white count slightly down to 13,000 as of yesterday no CBC was done today patient is covered empirically with cefepime will benefit from possible tertiary care referral for her ischemic toes Dictation was produced using [employer] dictation software. please excuse any grammatical, word or spelling errors. Time with Patient: Less than 30
[2025-01-20] MEDS: LORazepam 1 MG/0.5 ML VIAL IV PRN (22:30)
--- NOTE | 2025-01-20 23:29 | PN ---
PROGRESS NOTE SUBJECTIVE: A 49-year-old with vasculitis type symptoms. She lost her toenail today. She has been seen by Pulmonary and waiting for Cardiology consult to see her for history of atrial fibrillation, hypertension, pneumonia, big toe discoloration on the right side. CT angiogram did not show any vascular occlusion. She had longstanding lymphadenitis, right side concerning for cellulitis. White count was elevated. Antibiotics were started. OBJECTIVE: VITAL SIGNS: Temperature 98.3, pulse 60, respiratory rate 16 to 18, blood pressure 114/76, O2 is 98%. CARDIOVASCULAR: S1, S2. LUNGS: Scattered rhonchi and wheeze x4. HEMATOLOGY: Negative Homans. EXTREMITIES: Show right foot is currently dressed. Second toe with minimal discoloration. Anterior to the great toe was raw. Skin was removed. LABORATORY DATA: White count is 13.5, hemoglobin 11.7, and platelets 277. Sodium 137, potassium 5.2. ASSESSMENT: Cellulitis of the right foot, thrush, tracheobronchitis, status post influenza pneumonia, microvascular versus Buerger's disease versus surgical concerns for lymphadenitis, cellulitis, thrush. Hematology, Vascular Surgery. We will wait for Cardiology to see her and then possibly transfer her. Of note, they also did not help her. Possible tertiary care center for ischemic toes. Prognosis guarded. MMODL / IJN: [id number] /
--- NOTE | 2025-01-21 09:46 | P.PN ---
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, vascular surgery has been following Would recommend to continue patient on DVT prophylaxis as well assess bilateral lower extremity swelling Fluid overload third spacing, continue gentle diuresis, Cellulitis of the toes, broad-spectrum antibiotics cefepime and vancomycin Hypertension hypertensive cardiovascular disease continue diltiazem and losartan History of smoking and nicotine use, smoking cessation counseling advised and nicotine patch January 21, 2025, patient seen eval examined during rounds labs reviewed medications reviewed care plan discussed, some congestion in the throat is present along with shortness of breath however severity has improved, patient remains on bronchodilators steroids tolerating very well, overall changes in the toes not much change, remains on broad-spectrum antibiotic patient remains afebrile with stable hemodynamics oxygen saturation 95% patient is being evaluated for possible transfer to [facility] by primary service awaiting further evaluation for cardiovascular services January 20/2025, patient seen eval examined, respiratory status slightly improved with breathing treatments, still have some scratchy sensation in throat patient has been on oral Diflucan, no significant change in the toes has been noted however more right Heema and edema in the feet noted suggestive of secondary infection, patient remains on broad-spectrum antibiotics ID service and vascular surgery following patient is being considered for transfer [facility] January 19, 2025, mild shortness of breath is present, patient had a breathing treatment earlier this morning able to cough out the secretions, feeling better, continue on bronchodilators along with IV steroids tolerating well, patient is being anticoagulated with Lovenox, patient is being continued on fluconazole for oral thrush and cefepime for cellulitis of the toes, patient is off of vancomycin patient has been counseled about smoking cessation, patient is being evaluated for possible endoscopy tomorrow January 18, 2025, patient seen eval examined during rounds labs reviewed medications reviewed care plan discussed, dressing from both feet and toes has been removed, edema slightly better, no exudate or discharge seen, toes remains cold. Patient remains on pain management with Tylenol, antidepressant therapy with trazodone patient is being continued on home medicine including Synthroid and metoprolol, remains on broad-spectrum antibiotic with cefepime tolerating well, patient is being gently treated diuresed with Bumex with 1 mg daily has been on bronchodilators as well Solu-Medrol is 40 Q8 will recommend to lower it down slowly bring it down to every 12, check labs tomorrow January 17, 2025, patient seen evaluate examined, slightly better in terms of shortness of breath, lower extremity edema is present, patient continued to be on DVT prophylaxis with Lovenox. Toes are covered with dressing. Patient is afebrile, oxygen saturation 94%. CT chest finding and duplex ultrasound of the legs reviewed 49-year-old female with extensive history of smoking and nicotine use about 1 pack/day for 20 to 25 years quit few weeks ago, she was hospitalized for pneumonia few weeks ago and was treated and subsequently was discharged, she started having numbness and tingling in the toes around December subsequently they turn purple and black, currently her right big toe and third toe is cold and cyanosed also left second and third toe is cold and cyanosed with evidence of cyanosis at the sole of foot bilaterally. Vascular surgery has evaluated the patient, patient had a CT angio with no evidence of obstruction or atherosclerosis seen. Earlier today she had intermittent cough a CT scan of the chest was performed, some scarring was noted along with atelectasis and right upper lobe and right middle lobe and lingula no mass identified, currently patient is on pain medicine along with bronchodilator, broad-spectrum antibiotics with cefepime has been on Solu-Medrol as well Significant prior medical issues include history of DVT PE about 3 years ago for which she was treated, history of smoking and COPD, chronic atrial fibrillation not on any anticoagulation, hypertension hypertensive cardiovascular disease, history of chronic back pain and pancreatitis Objective - Vital Signs Vital signs: Vital Signs Temp 98.3 F 01/21/25 07:23 Pulse 60 01/21/25 07:23 Resp 18 01/21/25 07:23 BP 144/88 01/21/25 07:23 Pulse Ox 95 01/21/25 07:23 FiO2 21 01/17/25 07:56 Intake & Output 01/20/25 01/21/25 01/21/25 18:59 06:59 18:59 Other: Voiding Method Toilet Toilet # Voids 4 8 # Bowel Movements 1 - Exam - Constitutional General appearance: average body habitus, cooperative, disheveled - EENT Eyes: EOMI, PERRLA ENT: normal oropharynx Ears: bilateral: normal - Neck Neck: normal ROM Carotids: bilateral: upstroke normal Thyroid: negative: normal size - Respiratory Respiratory: bilateral: CTA - Cardiovascular Rhythm: regular Heart sounds: normal: S1, S2 - Integumentary Integumentary: normal turgor - Neurologic Neurologic: CNII-XII intact - Musculoskeletal Musculoskeletal: gait normal, generalized weakness, strength equal bilaterally - Psychiatric Psychiatric: A&O x's 3, appropriate affect Right big toe and third toe cyanosed cold to touch with cyanosis at the well- circumscribed at the sole of the foot, cyanotic changes also noted in the left second and third toe with similar finding on sole of foot like right - Labs CBC & Chem 7: 01/19/25 05:48 01/19/25 05:48 Assessment and Plan Assessment: Oral thrush on Diflucan COPD with acute exacerbation, IV steroids bronchodilator supportive care, slow taper Peripheral vasculopathy likely related to vasculopathy/Burger's disease/related to smoking, vascular surgery has been following Would recommend to continue patient on DVT prophylaxis as well assess bilateral lower extremity swellig Subsegmental atelectasis on the right upper lobe as well as lingula lobe likely resolving pneumonia, agree with broad-spectrum antibiotics Fluid overload third spacing, continue gentle diuresis, Cellulitis of the toes, broad-spectrum antibiotics cefepime and vancomycin Hypertension hypertensive cardiovascular disease continue diltiazem and losartan History of smoking and nicotine use, smoking cessation counseling advised and n icotine patch Plan: As above Time with Patient: Greater than 30
--- NOTE | 2025-01-21 13:58 | P.PN ---
Subjective Progress Note Date: 01/21/25 Principal diagnosis: Reason for follow-up is right foot cellulitis Patient is a 49-year-old female with a past medical history significant for atrial fibrillation hypertension PE hypothyroidism recent admission to the hospital treated for pneumonia now presenting to the hospital concerning of bilateral big toe discoloration more on the right side with associated pain CT angiogram did not show any evidence of vascular occlusion vascular surgery is following the patient ID consulted because of ascending lymphangitis on the right side concerning for cellulitis. On today's evaluation that is 01/21/2025, Patient is afebrile this morning patient denies having any chest pain shortness of breath or any worsening cough, the patient is currently on room air, patient denies any abdominal pain no diarrhea no nausea no vomiting, patient complaining of degloving of the skin from the third left third toe last night. No new lab has been repeated today Objective - Vital Signs Vital signs: Vital Signs Temp 98.3 F 01/21/25 07:23 Pulse 60 01/21/25 09:35 Resp 18 01/21/25 09:35 BP 144/88 01/21/25 07:23 Pulse Ox 95 01/21/25 07:23 FiO2 21 01/17/25 07:56 Intake & Output 01/20/25 01/21/25 01/21/25 18:59 06:59 18:59 Other: Voiding Method Toilet Toilet Toilet # Voids 4 8 # Bowel Movements 1 - Exam GENERAL DESCRIPTION: Middle-age female lying in bed in no distress RESPIRATORY SYSTEM: Unlabored breathing , decreased breath sounds at bases HEART: S1 S2 regular rate and rhythm , ABDOMEN: Soft , no tenderness EXTREMITIES: Left third toe distal and skin and the nail has came off the wound base is beefy red with no slough tissue - Labs CBC & Chem 7: 01/19/25 05:48 01/19/25 05:48 Assessment and Plan (1) Cellulitis of right foot Current Visit: Yes Status: Acute Priority: High Code(s): L03.115 - CELLULITIS OF RIGHT LOWER LIMB SNOMED Code(s): 97640650189309834 (2) Thrush Current Visit: Yes Status: Acute Code(s): B37.0 - CANDIDAL STOMATITIS SNOMED Code(s): 17019885 (3) Tracheobronchitis Current Visit: No Status: Acute Code(s): J40 - BRONCHITIS, NOT SPECIFIED ACUTE OR CHRONIC SNOMED Code(s): 90498572 Plan: 1patient presented to hospital with bilateral big toe discoloration and pain in this patient who did have CT did not show any peripheral arterial disease with a question of possibly macrovascular versus Burger disease and is being followed by vascular surgery and now with concern for possible developing lymphangitis /cellulitis especially to the right foot area likely from gram-positive skin rodolfo. 2patient with a penicillin allergy that will limit the number of antibiotics safe to use. 3patient did have evidence of thrush and is not complaining of persistent syndrome as well as some dysphagia concern for possible oropharyngeal candidiasis continue with Diflucan and nystatin swish and swallow 4patient is complaining of cough and greenish sputum production sputum cultures obtained which are currently pending local culture also obtained which are so far negative 5patient is afebrile right foot dorsum redness has decreased still have discoloration to the right great toe and left second toe hematology and vascular surgery following the 6-patient is covered empirically with cefepime however will need to be transferred sooner than later to [facility] as mentioned previously by the admitting team about a week ago Dictation was produced using [employer] dictation software. please excuse any grammatical, word or spelling errors. Time with Patient: Less than 30
--- NOTE | 2025-01-21 13:59 | P.CRDCN ---
History of Present Illness History of present illness: HISTORY OF PRESENTING ILLNESS This is a pleasant 49-year-old with past medical history significant for hypertension, hyperlipidemia, obesity, prior PE approximately 3 years ago, ischemic toes, recent fall with shoulder injury and congestive heart failure. There is some mention of atrial fibrillation however patient states only that she was told she had it however does have a history of SVT. She had a PE previously and was on short-term anticoagulation and this was felt possibly related to after her COVID infection and COVID vaccination. She has had 2 prolonged hospitalizations in the last 3 to 4 weeks. Initially she presented with chest pain, shortness of breath and underwent cardiac workup with echo showing preserved EF. She states however that when she presented she was having some numbness and tingling in her digits both upper and lower extremity. She underwent extensive workup and then was discharged home. She followed up with PCP and within 24 hours had worsening lower extremity pain and discoloration in her toes as well as a trip and fall and injured her shoulder. She therefore came back to the hospital. She has had severe discoloration of her toes and therefore underwent workup with a CTA which was read out as no significant obstructive vascular disease as well as ANGELA with elevated ANGELA readings 1.6, 1.7. There was concern of hypercoagulable state as well as vasculitis and Buerger's disease from her tobacco abuse. She has been on high dose steroids without any significant major improvement in digits still black and discolored and painful and numb. She still has been having intermittent chest pain and mild dyspnea. She has not been very active however. Original troponin normal. No evidence of any atrial fibrillation on her prior EKGs. There was a prior episode of SVT where she received adenosine. REVIEW OF SYSTEMS At the time of my exam: CONSTITUTIONAL: Denies fever or chills. CARDIOVASCULAR: +chest pain, no shortness of breath, orthopnea, PND or palpitations. RESPIRATORY: Denies cough. GASTROINTESTINAL: Denies abdominal pain, diarrhea, constipation, nausea or vomiting. MUSCULOSKELETAL: Denies myalgias. NEUROLOGIC: +LE numbness and tingling ENDOCRINE: Denies fatigue, weight change, polydipsia or polyurina. GENITOURINARY: Denies burning, hematuria or urgency with micturation. HEMATOLOGIC: Denies history of anemia or bleeding. PHYSICAL EXAMINATION Vital signs reviewed. CONSTITUTIONAL: No apparent distress. HEENT: Head is normocephalic. Pupils are equal, round. Sclerae anicteric. Mucous membranes of the mouth are moist. No JVD. No carotid bruit. CHEST EXAMINATION: Lungs are clear to auscultation. No chest wall tenderness is noted on palpation or with deep breathing. HEART EXAMINATION: Regular rate and rhythm. S1, S2 heard. No murmurs, gallops or rub. ABDOMEN: Soft, nontender. Positive bowel sounds. EXTREMITIES: +bilateral LE discoloration, gangrene, bilateral femoral pulses not palpable, 1+ bilateral radial pulses NEUROLOGIC EXAMINATION: Patient is awake, alert and oriented x3. ASSESSMENT Atypical chest pain, troponin is normal History of congestive heart failure Tobacco abuse recently states she is going to quit Acute bilateral toe ischemia. Concern of Buerger's disease versus microvascular disease, vasculitis Dyspnea History of SVT Reported atrial fibrillation, none currently documented History of PE PLAN Patient with prior PE and concern of hypercoagulable state. Concern of possible embolic etiology and may consider REEMA to rule out any cardiac source of emboli. Patient however with poor femoral pulses and despite CAT scan being normal may be missing a more soft plaque. We discussed more definitive evaluation with angiogram versus medical therapy with outpatient follow-up with vascular surgery versus transfer to tertiary center. Patient would like more of an evaluation and therefore discussed risks and benefits of catheterization. Patient would like to proceed with catheterization likely abdominal angiogram with runoff and possible coronary angiogram if will 2 with contrast dye secondary to chest pain and concern of vasculitis. Likely proceed with angiogram 01/22. Past Medical History Past Medical History: Atrial Fibrillation, Hypertension, Pulmonary Embolus (PE), Thyroid Disorder Additional Past Medical History / Comment(s): Pt states she has an arrythmia (afib), pancreatitis and chronic back and neck pain. Herniated Disk History of Any Multi-Drug Resistant Organisms: CRE, Other MDRO Date of last positivie culture/infection: 07/16/21 MDRO Source:: URINE Past Surgical History: Appendectomy, Orthopedic Surgery Additional Past Surgical History / Comment(s): titanium wrist right, abdominal exploratory open appy, left elbow pin from falling out of tree Past Anesthesia/Blood Transfusion Reactions: No Reported Reaction Past Psychological History: Anxiety, Depression, PTSD Smoking Status: Current every day smoker Past Alcohol Use History: Heavy Past Drug Use History: None Reported - Past Family History Father History Unknown: Yes Family Medical History: Osteoarthritis (OA) Medications and Allergies Home Medications Medication Instructions Recorded Confirmed Type Nicotine 21Mg/24Hr Patch [Habitrol] 1 patch TRANSDERM DAILY #42 patch 01/18/24 01/08/25 Rx Ferrous Sulfate [Iron (65 MG 325 mg PO DAILY 12/22/24 01/08/25 History Elemental)] Bumetanide [Bumex] 1 mg PO DAILY #30 tablet 12/29/24 01/08/25 Rx Gabapentin [Neurontin] 300 mg PO TID 3 Days #90 cap 12/29/24 01/08/25 Rx LORazepam [Ativan] 0.5 mg PO BID PRN #20 tab 12/29/24 01/08/25 Rx Levothyroxine Sodium [Euthyrox] 75 mcg PO DAILY #30 tablet 12/29/24 01/08/25 Rx Metoprolol Tartrate [Lopressor] 50 mg PO BID #60 tab 12/29/24 01/08/25 Rx Pantoprazole [Protonix] 40 mg PO BID #60 tab 12/29/24 01/08/25 Rx Prazosin HCl [Minipress] 2 mg PO HS #30 capsule 12/29/24 01/08/25 Rx Sertraline [Zoloft] 100 mg PO BID #60 tab 12/29/24 01/08/25 Rx traZODone HCL [Desyrel] 50 mg PO TID PRN #90 tab 12/29/24 01/08/25 Rx Budesonide/Formoterol Fumarate 2 puff INHALATION RT-BID 01/08/25 01/08/25 History [Symbicort 160-4.5 Mcg Inhaler] HYDROcodone/APAP 7.5-325MG [[place] 1 tab PO Q12H 01/08/25 01/08/25 History 7.5-325] Potassium Citrate [Urocit-K ER] 15 meq PO PC-BID 01/08/25 01/08/25 History Umeclidinium [place] [Incruse 1 puff INHALATION RT-DAILY 01/08/25 01/08/25 History Ellipta] Allergies Allergy/AdvReac Type Severity Reaction Status Date / Time Penicillins Allergy Unknown Unknown Verified 01/08/25 09:42 Childhood Physical Exam Vitals: Vital Signs Temp Pulse Resp BP Pulse Ox 01/21/25 09:35 60 18 03/11/25 07:23 98.3 F 60 18 144/88 95 01/21/25 01:26 98.3 F 62 18 132/76 94 L 01/20/25 19:32 98.1 F 70 19 135/79 96 01/20/25 13:46 98.3 F 60 18 114/76 98 Intake and Output 01/20/25 01/21/25 01/21/25 22:59 06:59 14:59 Other: Voiding Method Toilet Toilet # Voids 4 8 # Bowel Movements 1 Results 01/19/25 05:48 01/19/25 05:48 Cardiac Enzymes 01/07/25 01/07/25 01/07/25 Range/Units 18:36 18:36 18:36 WBC 14.0 H (3.8-10.6) k/uL RBC 3.81 (3.80-5.40) m/uL Hgb 12.3 D (11.4-16.0) gm/dL Hct 38.5 (34.0-46.0) % MCV 101.1 H (80.0-100.0) fL MCH 32.2 (25.0-35.0) pg MCHC 31.8 (31.0-37.0) g/dL RDW 16.5 H (11.5-15.5) % Plt Count 211 (150-450) k/uL Estimated Plt Count (Adequate) MPV 7.6 Immature Gran % (Auto) % Absolute Nucleated RBC % Neutrophils % 92 % Lymphocytes % 4 % Monocytes % 2 % Eosinophils % 1 % Basophils % 0 % Immature Gran # (0.00-0.04) X 10*3/uL Neutrophils # 12.9 H (1.3-7.7) k/uL Lymphocytes # 0.6 L (1.0-4.8) k/uL Monocytes # 0.3 (0-1.0) k/uL Eosinophils # 0.2 (0-0.7) k/uL Basophils # 0.0 (0-0.2) k/uL NRBC/100 WBC Diff (0.00-0.01) X 10*3/uL Manual Slide Review Hypochromasia Anisocytosis Slight Macrocytosis Slight ESR (0-20) mm/Hr PT 9.8 L (10.0-12.5) sec INR 0.9 (<1.2) APTT 22.1 (22.0-30.0) sec Lupus Anticoag aPTT (<43) Sec(s) Lupus Anticoag PTT Mix Sec(s) Dil Jose Viper Venom (<44) Sec(s) LA dRVVT Confirm dRVVT 50:50 Sec(s) Lupus Hexagonal Phase Lupus Anticoag Interp Sodium 137 (137-145) mmol/L Potassium 4.4 (3.5-5.1) mmol/L Chloride 99 (98-107) mmol/L Carbon Dioxide 29 (22-30) mmol/L Anion Gap 9 mmol/L BUN 18 H (7-17) mg/dL Creatinine 0.82 (0.52-1.04) mg/dL Est GFR (CKD-EPI) (>=60) Est GFR (CKD-EPI)AfAm >90 (>60 ml/min/1.73 sqM) Est GFR (CKD-EPI)NonAf 86 (>60 ml/min/1.73 sqM) BUN/Creatinine Ratio (12.00-20.00) Ratio Glucose 150 H (74-99) mg/dL Lactic Ac Sepsis Rflx Plasma Lactic Acid [place] (0.7-2.0) mmol/L Calcium 9.4 (8.4-10.2) mg/dL Magnesium 1.5 L (1.6-2.3) mg/dL Total Bilirubin 0.3 (0.2-1.3) mg/dL ALT 67 H (4-34) U/L Alkaline Phosphatase 105 (38-126) U/L Creatine Kinase (30-135) U/L C-Reactive Protein (<1.0) mg/dL Total Protein 6.3 (6.3-8.2) g/dL Albumin 3.7 (3.5-5.0) g/dL Globulin (1.6-3.3) g/dL Albumin/Globulin Ratio (1.60-3.17) Ratio Vancomycin Trough ug/mL Rheumatoid Factor (0-15) IU/mL MAKENZIE Screen (Negative) Anti-Cardiolipin IgG Ab U/mL Cardiolipin IgG Interp (Negative) Anti-Cardiolipin IgA Ab U/mL Cardiolipin IgA Interp (Negative) Anti-Cardiolipin IgM Ab U/mL Cardiolipin IgM Interp (Negative) 01/07/25 01/07/25 01/07/25 Range/Units 18:36 19:19 21:30 WBC (3.8-10.6) k/uL RBC (3.80-5.40) m/uL Hgb (11.4-16.0) gm/dL Hct (34.0-46.0) % MCV (80.0-100.0) fL MCH (25.0-35.0) pg MCHC (31.0-37.0) g/dL RDW (11.5-15.5) % Plt Count (150-450) k/uL Estimated Plt Count (Adequate) MPV Immature Gran % (Auto) % Absolute Nucleated RBC % Neutrophils % % Lymphocytes % % Monocytes % % Eosinophils % % Basophils % % Immature Gran # (0.00-0.04) X 10*3/uL Neutrophils # (1.3-7.7) k/uL Lymphocytes # (1.0-4.8) k/uL Monocytes # (0-1.0) k/uL Eosinophils # (0-0.7) k/uL Basophils # (0-0.2) k/uL NRBC/100 WBC Diff (0.00-0.01) X 10*3/uL Manual Slide Review Hypochromasia Anisocytosis Macrocytosis ESR (0-20) mm/Hr PT (10.0-12.5) sec INR (<1.2) APTT (22.0-30.0) sec Lupus Anticoag aPTT (<43) Sec(s) Lupus Anticoag PTT Mix Sec(s) Dil Jose Viper Venom (<44) Sec(s) LA dRVVT Confirm dRVVT 50:50 Sec(s) Lupus Hexagonal Phase Lupus Anticoag Interp Sodium (137-145) mmol/L Potassium (3.5-5.1) mmol/L Chloride (98-107) mmol/L Carbon Dioxide (22-30) mmol/L Anion Gap mmol/L BUN (7-17) mg/dL Creatinine (0.52-1.04) mg/dL Est GFR (CKD-EPI) (>=60) Est GFR (CKD-EPI)AfAm (>60 ml/min/1.73 sqM) Est GFR (CKD-EPI)NonAf (>60 ml/min/1.73 sqM) BUN/Creatinine Ratio (12.00-20.00) Ratio Glucose (74-99) mg/dL Lactic Ac Sepsis Rflx Y Plasma Lactic Acid [place] 2.5 H* 1.5 (0.7-2.0) mmol/L Calcium (8.4-10.2) mg/dL Magnesium (1.6-2.3) mg/dL Total Bilirubin (0.2-1.3) mg/dL ALT (4-34) U/L Alkaline Phosphatase (38-126) U/L Creatine Kinase (30-135) U/L C-Reactive Protein (<1.0) mg/dL Total Protein (6.3-8.2) g/dL Albumin (3.5-5.0) g/dL Globulin (1.6-3.3) g/dL Albumin/Globulin Ratio (1.60-3.17) Ratio Vancomycin Trough ug/mL Rheumatoid Factor (0-15) IU/mL MAKENZIE Screen (Negative) Anti-Cardiolipin IgG Ab U/mL Cardiolipin IgG Interp (Negative) Anti-Cardiolipin IgA Ab U/mL Cardiolipin IgA Interp (Negative) Anti-Cardiolipin IgM Ab U/mL Cardiolipin IgM Interp (Negative) 01/07/25 01/07/25 01/08/25 Range/Units 23:38 23:38 03:49 WBC 12.0 H (3.8-10.6) k/uL RBC 3.77 L (3.80-5.40) m/uL Hgb 12.2 (11.4-16.0) gm/dL Hct 38.9 (34.0-46.0) % MCV 103.0 H (80.0-100.0) fL MCH 32.4 (25.0-35.0) pg MCHC 31.5 (31.0-37.0) g/dL RDW 16.7 H (11.5-15.5) % Plt Count 191 (150-450) k/uL Estimated Plt Count (Adequate) MPV 7.6 Immature Gran % (Auto) % Absolute Nucleated RBC % Neutrophils % 89 % Lymphocytes % 8 % Monocytes % 3 % Eosinophils % 1 % Basophils % 0 % Immature Gran # (0.00-0.04) X 10*3/uL Neutrophils # 10.7 H (1.3-7.7) k/uL Lymphocytes # 0.9 L (1.0-4.8) k/uL Monocytes # 0.3 (0-1.0) k/uL Eosinophils # 0.1 (0-0.7) k/uL Basophils # 0.0 (0-0.2) k/uL NRBC/100 WBC Diff (0.00-0.01) X 10*3/uL Manual Slide Review Hypochromasia Slight Anisocytosis Slight Macrocytosis Moderate ESR (0-20) mm/Hr PT (10.0-12.5) sec INR (<1.2) APTT (22.0-30.0) sec Lupus Anticoag aPTT (<43) Sec(s) Lupus Anticoag PTT Mix Sec(s) Dil Jose Viper Venom (<44) Sec(s) LA dRVVT Confirm dRVVT 50:50 Sec(s) Lupus Hexagonal Phase Lupus Anticoag Interp Sodium (137-145) mmol/L Potassium (3.5-5.1) mmol/L Chloride (98-107) mmol/L Carbon Dioxide (22-30) mmol/L Anion Gap mmol/L BUN (7-17) mg/dL Creatinine (0.52-1.04) mg/dL Est GFR (CKD-EPI) (>=60) Est GFR (CKD-EPI)AfAm (>60 ml/min/1.73 sqM) Est GFR (CKD-EPI)NonAf (>60 ml/min/1.73 sqM) BUN/Creatinine Ratio (12.00-20.00) Ratio Glucose (74-99) mg/dL Lactic Ac Sepsis Rflx Plasma Lactic Acid [place] (0.7-2.0) mmol/L Calcium (8.4-10.2) mg/dL Magnesium (1.6-2.3) mg/dL Total Bilirubin (0.2-1.3) mg/dL ALT (4-34) U/L Alkaline Phosphatase (38-126) U/L Creatine Kinase 142 H (30-135) U/L C-Reactive Protein 5.1 H (<1.0) mg/dL Total Protein (6.3-8.2) g/dL Albumin (3.5-5.0) g/dL Globulin (1.6-3.3) g/dL Albumin/Globulin Ratio (1.60-3.17) Ratio Vancomycin Trough ug/mL Rheumatoid Factor <15 (0-15) IU/mL MAKENZIE Screen Negative (Negative) Anti-Cardiolipin IgG Ab U/mL Cardiolipin IgG Interp (Negative) Anti-Cardiolipin IgA Ab U/mL Cardiolipin IgA Interp (Negative) Anti-Cardiolipin IgM Ab U/mL Cardiolipin IgM Interp (Negative) 01/08/25 01/10/25 01/11/25 Range/Units 03:49 05:45 09:05 WBC (3.8-10.6) k/uL RBC (3.80-5.40) m/uL Hgb (11.4-16.0) gm/dL Hct (34.0-46.0) % MCV (80.0-100.0) fL MCH (25.0-35.0) pg MCHC (31.0-37.0) g/dL RDW (11.5-15.5) % Plt Count (150-450) k/uL Estimated Plt Count (Adequate) MPV Immature Gran % (Auto) % Absolute Nucleated RBC % Neutrophils % % Lymphocytes % % Monocytes % % Eosinophils % % Basophils % % Immature Gran # (0.00-0.04) X 10*3/uL Neutrophils # (1.3-7.7) k/uL Lymphocytes # (1.0-4.8) k/uL Monocytes # (0-1.0) k/uL Eosinophils # (0-0.7) k/uL Basophils # (0-0.2) k/uL NRBC/100 WBC Diff (0.00-0.01) X 10*3/uL Manual Slide Review Hypochromasia Anisocytosis Macrocytosis ESR (0-20) mm/Hr PT (10.0-12.5) sec INR (<1.2) APTT (22.0-30.0) sec Lupus Anticoag aPTT (<43) Sec(s) Lupus Anticoag PTT Mix Sec(s) Dil Jose Viper Venom (<44) Sec(s) LA dRVVT Confirm dRVVT 50:50 Sec(s) Lupus Hexagonal Phase Lupus Anticoag Interp Sodium 137 (137-145) mmol/L Potassium 4.3 (3.5-5.1) mmol/L Chloride 96 L (98-107) mmol/L Carbon Dioxide 33 H (22-30) mmol/L Anion Gap 8 mmol/L BUN 20 H (7-17) mg/dL Creatinine 0.73 0.66 (0.52-1.04) mg/dL Est GFR (CKD-EPI) (>=60) Est GFR (CKD-EPI)AfAm >90 >90 (>60 ml/min/1.73 sqM) Est GFR (CKD-EPI)NonAf >90 >90 (>60 ml/min/1.73 sqM) BUN/Creatinine Ratio (12.00-20.00) Ratio Glucose 169 H (74-99) mg/dL Lactic Ac Sepsis Rflx Plasma Lactic Acid [place] (0.7-2.0) mmol/L Calcium 9.7 (8.4-10.2) mg/dL Magnesium (1.6-2.3) mg/dL Total Bilirubin 0.4 (0.2-1.3) mg/dL ALT 68 H (4-34) U/L Alkaline Phosphatase 116 (38-126) U/L Creatine Kinase (30-135) U/L C-Reactive Protein (<1.0) mg/dL Total Protein 6.5 (6.3-8.2) g/dL Albumin 3.8 (3.5-5.0) g/dL Globulin (1.6-3.3) g/dL Albumin/Globulin Ratio (1.60-3.17) Ratio Vancomycin Trough 12.1 ug/mL Rheumatoid Factor (0-15) IU/mL MAKENZIE Screen (Negative) Anti-Cardiolipin IgG Ab U/mL Cardiolipin IgG Interp (Negative) Anti-Cardiolipin IgA Ab U/mL Cardiolipin IgA Interp (Negative) Anti-Cardiolipin IgM Ab U/mL Cardiolipin IgM Interp (Negative) 01/12/25 01/13/25 01/13/25 Range/Units 05:29 03:12 03:12 WBC 14.78 H (3.8-10.6) k/uL RBC 3.46 L (3.80-5.40) m/uL Hgb 11.4 L (11.4-16.0) gm/dL Hct 35.6 L (34.0-46.0) % MCV 102.9 H (80.0-100.0) fL MCH 32.9 H (25.0-35.0) pg MCHC 32.0 (31.0-37.0) g/dL RDW 17.2 H (11.5-15.5) % Plt Count 243 (150-450) k/uL Estimated Plt Count (Adequate) MPV 10.4 Immature Gran % (Auto) 0.30 % Absolute Nucleated RBC 0 % Neutrophils % 90.5 % Lymphocytes % 5.3 % Monocytes % 3.7 % Eosinophils % 0.1 % Basophils % 0.1 % Immature Gran # 0.05 H (0.00-0.04) X 10*3/uL Neutrophils # 13.38 H (1.3-7.7) k/uL Lymphocytes # 0.78 L (1.0-4.8) k/uL Monocytes # 0.55 (0-1.0) k/uL Eosinophils # 0.01 L (0-0.7) k/uL Basophils # 0.01 (0-0.2) k/uL NRBC/100 WBC Diff 0 (0.00-0.01) X 10*3/uL Manual Slide Review Hypochromasia Anisocytosis Macrocytosis ESR (0-20) mm/Hr PT (10.0-12.5) sec INR (<1.2) APTT (22.0-30.0) sec Lupus Anticoag aPTT (<43) Sec(s) Lupus Anticoag PTT Mix Sec(s) Dil Jose Viper Venom (<44) Sec(s) LA dRVVT Confirm dRVVT 50:50 Sec(s) Lupus Hexagonal Phase Lupus Anticoag Interp Sodium 139 (137-145) mmol/L Potassium 5.0 (3.5-5.1) mmol/L Chloride 100 (98-107) mmol/L Carbon Dioxide 28.1 (22-30) mmol/L Anion Gap 10.90 mmol/L BUN 25.7 (7-17) mg/dL Creatinine 0.69 0.8 (0.52-1.04) mg/dL Est GFR (CKD-EPI) 91 (>=60) Est GFR (CKD-EPI)AfAm >90 (>60 ml/min/1.73 sqM) Est GFR (CKD-EPI)NonAf >90 (>60 ml/min/1.73 sqM) BUN/Creatinine Ratio 32.12 H (12.00-20.00) Ratio Glucose 111 H (74-99) mg/dL Lactic Ac Sepsis Rflx Plasma Lactic Acid [place] (0.7-2.0) mmol/L Calcium 9.3 (8.4-10.2) mg/dL Magnesium (1.6-2.3) mg/dL Total Bilirubin (0.2-1.3) mg/dL ALT (4-34) U/L Alkaline Phosphatase (38-126) U/L Creatine Kinase (30-135) U/L C-Reactive Protein 2.00 H (<1.0) mg/dL Total Protein (6.3-8.2) g/dL Albumin (3.5-5.0) g/dL Globulin (1.6-3.3) g/dL Albumin/Globulin Ratio (1.60-3.17) Ratio Vancomycin Trough ug/mL Rheumatoid Factor (0-15) IU/mL MAKENZIE Screen (Negative) Anti-Cardiolipin IgG Ab U/mL Cardiolipin IgG Interp (Negative) Anti-Cardiolipin IgA Ab U/mL Cardiolipin IgA Interp (Negative) Anti-Cardiolipin IgM Ab U/mL Cardiolipin IgM Interp (Negative) 01/13/25 01/13/25 01/14/25 Range/Units 09:07 09:11 04:07 WBC 14.66 H (3.8-10.6) k/uL RBC 3.62 L (3.80-5.40) m/uL Hgb 12.0 (11.4-16.0) gm/dL Hct 38.2 (34.0-46.0) % MCV 105.5 H (80.0-100.0) fL MCH 33.1 H (25.0-35.0) pg MCHC 31.4 L (31.0-37.0) g/dL RDW 17.1 H (11.5-15.5) % Plt Count 267 (150-450) k/uL Estimated Plt Count Adequate (Adequate) MPV 10.4 Immature Gran % (Auto) 0.40 % Absolute Nucleated RBC 0 % Neutrophils % 90.2 % Lymphocytes % 5.7 % Monocytes % 3.6 % Eosinophils % 0 % Basophils % 0.1 % Immature Gran # 0.06 H (0.00-0.04) X 10*3/uL Neutrophils # 13.21 H (1.3-7.7) k/uL Lymphocytes # 0.84 L (1.0-4.8) k/uL Monocytes # 0.53 (0-1.0) k/uL Eosinophils # 0 L (0-0.7) k/uL Basophils # 0.02 (0-0.2) k/uL NRBC/100 WBC Diff 0 (0.00-0.01) X 10*3/uL Manual Slide Review Morph Only Hypochromasia Anisocytosis Macrocytosis ESR (0-20) mm/Hr PT (10.0-12.5) sec INR (<1.2) APTT (22.0-30.0) sec Lupus Anticoag aPTT (<43) Sec(s) Lupus Anticoag PTT Mix Sec(s) Dil Jose Viper Venom (<44) Sec(s) LA dRVVT Confirm dRVVT 50:50 Sec(s) Lupus Hexagonal Phase Lupus Anticoag Interp Sodium (137-145) mmol/L Potassium (3.5-5.1) mmol/L Chloride (98-107) mmol/L Carbon Dioxide (22-30) mmol/L Anion Gap mmol/L BUN (7-17) mg/dL Creatinine 0.77 (0.52-1.04) mg/dL Est GFR (CKD-EPI) (>=60) Est GFR (CKD-EPI)AfAm >90 (>60 ml/min/1.73 sqM) Est GFR (CKD-EPI)NonAf >90 (>60 ml/min/1.73 sqM) BUN/Creatinine Ratio (12.00-20.00) Ratio Glucose (74-99) mg/dL Lactic Ac Sepsis Rflx Plasma Lactic Acid [place] (0.7-2.0) mmol/L Calcium (8.4-10.2) mg/dL Magnesium (1.6-2.3) mg/dL Total Bilirubin (0.2-1.3) mg/dL ALT (4-34) U/L Alkaline Phosphatase (38-126) U/L Creatine Kinase (30-135) U/L C-Reactive Protein (<1.0) mg/dL Total Protein (6.3-8.2) g/dL Albumin (3.5-5.0) g/dL Globulin (1.6-3.3) g/dL Albumin/Globulin Ratio (1.60-3.17) Ratio Vancomycin Trough 13.7 ug/mL Rheumatoid Factor (0-15) IU/mL MAKENZIE Screen (Negative) Anti-Cardiolipin IgG Ab U/mL Cardiolipin IgG Interp (Negative) Anti-Cardiolipin IgA Ab U/mL Cardiolipin IgA Interp (Negative) Anti-Cardiolipin IgM Ab U/mL Cardiolipin IgM Interp (Negative) 01/14/25 01/15/25 01/15/25 Range/Units 04:07 09:09 12:52 WBC (3.8-10.6) k/uL RBC (3.80-5.40) m/uL Hgb (11.4-16.0) gm/dL Hct (34.0-46.0) % MCV (80.0-100.0) fL MCH (25.0-35.0) pg MCHC (31.0-37.0) g/dL RDW (11.5-15.5) % Plt Count (150-450) k/uL Estimated Plt Count (Adequate) MPV Immature Gran % (Auto) % Absolute Nucleated RBC % Neutrophils % % Lymphocytes % % Monocytes % % Eosinophils % % Basophils % % Immature Gran # (0.00-0.04) X 10*3/uL Neutrophils # (1.3-7.7) k/uL Lymphocytes # (1.0-4.8) k/uL Monocytes # (0-1.0) k/uL Eosinophils # (0-0.7) k/uL Basophils # (0-0.2) k/uL NRBC/100 WBC Diff (0.00-0.01) X 10*3/uL Manual Slide Review Hypochromasia Anisocytosis Macrocytosis ESR 44 H (0-20) mm/Hr PT (10.0-12.5) sec INR (<1.2) APTT (22.0-30.0) sec Lupus Anticoag aPTT (<43) Sec(s) Lupus Anticoag PTT Mix Sec(s) Dil Jose Viper Venom (<44) Sec(s) LA dRVVT Confirm dRVVT 50:50 Sec(s) Lupus Hexagonal Phase Lupus Anticoag Interp Sodium 139 (137-145) mmol/L Potassium 4.9 (3.5-5.1) mmol/L Chloride 102 (98-107) mmol/L Carbon Dioxide 28.8 (22-30) mmol/L Anion Gap 8.20 mmol/L BUN 25.6 (7-17) mg/dL Creatinine 0.7 (0.52-1.04) mg/dL Est GFR (CKD-EPI) 107 (>=60) Est GFR (CKD-EPI)AfAm (>60 ml/min/1.73 sqM) Est GFR (CKD-EPI)NonAf (>60 ml/min/1.73 sqM) BUN/Creatinine Ratio 36.57 H (12.00-20.00) Ratio Glucose 189 H (74-99) mg/dL Lactic Ac Sepsis Rflx Plasma Lactic Acid [place] (0.7-2.0) mmol/L Calcium 9.3 (8.4-10.2) mg/dL Magnesium (1.6-2.3) mg/dL Total Bilirubin <0.2 L (0.2-1.3) mg/dL ALT 63 H (4-34) U/L Alkaline Phosphatase 115 (38-126) U/L Creatine Kinase (30-135) U/L C-Reactive Protein (<1.0) mg/dL Total Protein 6.4 (6.3-8.2) g/dL Albumin 3.8 (3.5-5.0) g/dL Globulin 2.6 (1.6-3.3) g/dL Albumin/Globulin Ratio 1.46 L (1.60-3.17) Ratio Vancomycin Trough 14.8 ug/mL Rheumatoid Factor (0-15) IU/mL MAKENZIE Screen (Negative) Anti-Cardiolipin IgG Ab U/mL Cardiolipin IgG Interp (Negative) Anti-Cardiolipin IgA Ab U/mL Cardiolipin IgA Interp (Negative) Anti-Cardiolipin IgM Ab U/mL Cardiolipin IgM Interp (Negative) 01/15/25 01/15/25 01/16/25 Range/Units 12:52 12:52 05:42 WBC (3.8-10.6) k/uL RBC (3.80-5.40) m/uL Hgb (11.4-16.0) gm/dL Hct (34.0-46.0) % MCV (80.0-100.0) fL MCH (25.0-35.0) pg MCHC (31.0-37.0) g/dL RDW (11.5-15.5) % Plt Count (150-450) k/uL Estimated Plt Count (Adequate) MPV Immature Gran % (Auto) % Absolute Nucleated RBC % Neutrophils % % Lymphocytes % % Monocytes % % Eosinophils % % Basophils % % Immature Gran # (0.00-0.04) X 10*3/uL Neutrophils # (1.3-7.7) k/uL Lymphocytes # (1.0-4.8) k/uL Monocytes # (0-1.0) k/uL Eosinophils # (0-0.7) k/uL Basophils # (0-0.2) k/uL NRBC/100 WBC Diff (0.00-0.01) X 10*3/uL Manual Slide Review Hypochromasia Anisocytosis Macrocytosis ESR (0-20) mm/Hr PT (10.0-12.5) sec INR (<1.2) APTT (22.0-30.0) sec Lupus Anticoag aPTT 30 (<43) Sec(s) Lupus Anticoag PTT Mix NA Sec(s) Dil Jose Viper Venom 35 (<44) Sec(s) LA dRVVT Confirm NA dRVVT 50:50 NA Sec(s) Lupus Hexagonal Phase NA Lupus Anticoag Interp SEE BELOW Sodium (137-145) mmol/L Potassium (3.5-5.1) mmol/L Chloride (98-107) mmol/L Carbon Dioxide (22-30) mmol/L Anion Gap mmol/L BUN (7-17) mg/dL Creatinine 0.76 (0.52-1.04) mg/dL Est GFR (CKD-EPI) (>=60) Est GFR (CKD-EPI)AfAm >90 (>60 ml/min/1.73 sqM) Est GFR (CKD-EPI)NonAf >90 (>60 ml/min/1.73 sqM) BUN/Creatinine Ratio (12.00-20.00) Ratio Glucose (74-99) mg/dL Lactic Ac Sepsis Rflx Plasma Lactic Acid [place] (0.7-2.0) mmol/L Calcium (8.4-10.2) mg/dL Magnesium (1.6-2.3) mg/dL Total Bilirubin (0.2-1.3) mg/dL ALT (4-34) U/L Alkaline Phosphatase (38-126) U/L Creatine Kinase (30-135) U/L C-Reactive Protein (<1.0) mg/dL Total Protein (6.3-8.2) g/dL Albumin (3.5-5.0) g/dL Globulin (1.6-3.3) g/dL Albumin/Globulin Ratio (1.60-3.17) Ratio Vancomycin Trough ug/mL Rheumatoid Factor (0-15) IU/mL MAKENZIE Screen (Negative) Anti-Cardiolipin IgG Ab <1.6 U/mL Cardiolipin IgG Interp Negative (Negative) Anti-Cardiolipin IgA Ab <2.0 U/mL Cardiolipin IgA Interp Negative (Negative) Anti-Cardiolipin IgM Ab <1.5 U/mL Cardiolipin IgM Interp Negative (Negative) 01/19/25 01/19/25 Range/Units 05:48 05:48 WBC 13.50 H (3.8-10.6) k/uL RBC 3.61 L (3.80-5.40) m/uL Hgb 11.7 L (11.4-16.0) gm/dL Hct 37.4 (34.0-46.0) % MCV 103.6 H (80.0-100.0) fL MCH 32.4 H (25.0-35.0) pg MCHC 31.3 L (31.0-37.0) g/dL RDW 16.8 H (11.5-15.5) % Plt Count 277 (150-450) k/uL Estimated Plt Count (Adequate) MPV 10.1 Immature Gran % (Auto) 1.20 % Absolute Nucleated RBC 0 % Neutrophils % 84.1 % Lymphocytes % 8.1 % Monocytes % 6.1 % Eosinophils % 0.1 % Basophils % 0.4 % Immature Gran # 0.16 H (0.00-0.04) X 10*3/uL Neutrophils # 11.36 H (1.3-7.7) k/uL Lymphocytes # 1.10 (1.0-4.8) k/uL Monocytes # 0.82 (0-1.0) k/uL Eosinophils # 0.01 L (0-0.7) k/uL Basophils # 0.05 (0-0.2) k/uL NRBC/100 WBC Diff 0 (0.00-0.01) X 10*3/uL Manual Slide Review Hypochromasia Anisocytosis Macrocytosis ESR (0-20) mm/Hr PT (10.0-12.5) sec INR (<1.2) APTT (22.0-30.0) sec Lupus Anticoag aPTT (<43) Sec(s) Lupus Anticoag PTT Mix Sec(s) Dil Jose Viper Venom (<44) Sec(s) LA dRVVT Confirm dRVVT 50:50 Sec(s) Lupus Hexagonal Phase Lupus Anticoag Interp Sodium 137 (137-145) mmol/L Potassium 5.2 (3.5-5.1) mmol/L Chloride 100 (98-107) mmol/L Carbon Dioxide 26.6 (22-30) mmol/L Anion Gap 10.40 mmol/L BUN 31.2 H (7-17) mg/dL Creatinine 0.9 (0.52-1.04) mg/dL Est GFR (CKD-EPI) 79 (>=60) Est GFR (CKD-EPI)AfAm (>60 ml/min/1.73 sqM) Est GFR (CKD-EPI)NonAf (>60 ml/min/1.73 sqM) BUN/Creatinine Ratio 34.67 H (12.00-20.00) Ratio Glucose 287 H (74-99) mg/dL Lactic Ac Sepsis Rflx Plasma Lactic Acid [place] (0.7-2.0) mmol/L Calcium 9.5 (8.4-10.2) mg/dL Magnesium (1.6-2.3) mg/dL Total Bilirubin <0.2 L (0.2-1.3) mg/dL ALT 71 H (4-34) U/L Alkaline Phosphatase 105 (38-126) U/L Creatine Kinase (30-135) U/L C-Reactive Protein (<1.0) mg/dL Total Protein 6.0 L (6.3-8.2) g/dL Albumin 3.8 (3.5-5.0) g/dL Globulin 2.2 (1.6-3.3) g/dL Albumin/Globulin Ratio 1.73 (1.60-3.17) Ratio Vancomycin Trough ug/mL Rheumatoid Factor (0-15) IU/mL MAKENZIE Screen (Negative) Anti-Cardiolipin IgG Ab U/mL Cardiolipin IgG Interp (Negative) Anti-Cardiolipin IgA Ab U/mL Cardiolipin IgA Interp (Negative) Anti-Cardiolipin IgM Ab U/mL Cardiolipin IgM Interp (Negative) Current Medications Generic Name Dose Route Start Last Admin Trade Name Freq PRN Reason Stop Dose Admin Acetaminophen 650 mg 01/07/25 22:18 Acetaminophen Tab 325 Mg Tab PO Q6HR PRN Mild Pain or Fever > 100.5 Hydrocodone Bitart/Acetaminophen 1 each 01/07/25 22:18 01/20/25 06:54 Hydrocodone/Apap 5-325mg 1 Each Tab PO 1 each Q4HR PRN Administration Moderate Pain (Scale 4 to 6) Albuterol/Ipratropium 3 ml 01/08/25 08:00 01/21/25 12:39 Ipratropium-Albuterol 3 Ml Neb INHALATION Not Given RT-QID [facility] Bumetanide 1 mg 01/08/25 09:00 01/21/25 09:45 Bumetanide 1 Mg Tab PO 1 mg DAILY MISAEL Administration Diltiazem HCl 60 mg 01/12/25 14:00 01/21/25 09:36 Diltiazem Oral 60 Mg Tab PO 60 mg BID MISAEL Administration Enoxaparin Sodium 40 mg 01/15/25 16:30 01/21/25 09:39 Enoxaparin 40 Mg/0.4 Ml Syringe SQ 40 mg DAILY MISAEL Administration Ferrous Sulfate 325 mg 01/08/25 09:00 01/21/25 09:36 Ferrous Sulfate 325 Mg Tab PO 325 mg DAILY MISAEL Administration Fluconazole 200 mg 01/17/25 15:30 01/21/25 09:36 Fluconazole 100 Mg Tab PO 200 mg DAILY MISAEL Administration Protocol Gabapentin 300 mg 01/08/25 09:00 01/21/25 09:41 Gabapentin 300 Mg Cap PO 300 mg TID MISAEL Administration Guaifenesin/Dextromethorphan 1 each 01/12/25 23:30 01/21/25 09:36 Guaifenesin-Dm 600/30mg 1 Each Tab.Er.12h PO 1 each Q12HR MISAEL Administration Hydromorphone HCl 1 mg 01/07/25 22:18 01/21/25 09:36 Hydromorphone 1 Mg/Ml 1 Ml Syringe IVP 1 mg Q3HR PRN Administration Severe Pain (Scale 7 to 10) Hydromorphone HCl 0.5 mg 01/07/25 22:18 Hydromorphone 0.5 Mg/0.5 Ml Syringe IVP Q3HR PRN Moderate Pain (Scale 4 to 6) Sodium Chloride 1,000 mls @ 20 mls/hr 01/07/25 22:30 01/20/25 21:42 Saline 0.9% IV Not Given .Q24H MISAEL Cefepime HCl 2 gm/ Sodium 100 mls @ 25 mls/hr 01/10/25 16:00 01/21/25 09:35 Chloride IVPB 25 mls/hr Q8HR MISAEL Administration Protocol Levothyroxine Sodium 75 mcg 01/08/25 06:30 01/21/25 06:32 Levothyroxine 75 Mcg Tab PO 75 mcg DAILY@0630 MISAEL Administration Lorazepam 0.5 mg 01/08/25 00:38 01/20/25 21:51 Lorazepam 0.5 Mg Tab PO 0.5 mg BID PRN Administration Anxiety Lorazepam 1 mg 01/20/25 22:04 01/21/25 12:55 Lorazepam 1 Mg/0.5 Ml Vial IV 1 mg Q4HR PRN Administration Anxiety Losartan Potassium 25 mg 01/11/25 10:15 01/21/25 09:36 Losartan 25 Mg Tab PO 25 mg DAILY MISAEL Administration Magnesium Oxide 400 mg 01/08/25 00:45 01/21/25 09:36 Magnesium Oxide 400 Mg Tab PO 400 mg BID MISAEL Administration Methylprednisolone Sodium Succinate 40 mg 01/18/25 21:00 01/21/25 09:35 Methylprednisolone Sod Succi 40 Mg/Ml 1 Ml Vial IV 40 mg Q12HR MISAEL Administration Metoprolol Tartrate 50 mg 01/08/25 09:00 01/21/25 09:36 Metoprolol Tartrate 50 Mg Tab PO 50 mg BID MISAEL Administration Naloxone HCl 0.2 mg 01/07/25 22:18 Naloxone 0.4 Mg/Ml 1 Ml Vial IV Q2M PRN Opioid Reversal Nicotine 1 patch 01/08/25 09:00 01/21/25 09:35 Nicotine 21mg/24hr Patch TRANSDERM 1 patch DAILY MISAEL Administration Nystatin 500,000 unit 01/10/25 13:30 01/21/25 12:55 Nystatin 100,000 Unit/Ml Susp 500,000 Unit/5 Ml Cup PO 500,000 unit QID MISAEL Administration Protocol Pantoprazole Sodium 40 mg 01/08/25 09:00 01/21/25 09:36 Pantoprazole 40 Mg Tablet PO 40 mg BID MISAEL Administration Potassium Chloride 10 meq 01/08/25 09:00 01/21/25 09:36 Potassium Chloride Er 10 Meq Tab.Er.Prt PO 10 meq DAILY MISAEL Administration Sertraline HCl 100 mg 01/08/25 09:00 01/21/25 09:36 Sertraline 100 Mg Tab PO 100 mg BID MISAEL Administration Tramadol HCl 50 mg 01/07/25 22:18 01/19/25 06:30 Tramadol 50 Mg Tab PO 50 mg Q6H PRN Administration Moderate Pain (Scale 4 to 6) Trazodone HCl 50 mg 01/08/25 00:38 01/20/25 14:05 Trazodone Hcl 50 Mg Tab PO 50 mg TID PRN Administration Anxiety Intake and Output 01/20/25 01/21/25 01/21/25 22:59 06:59 14:59 Other: Voiding Method Toilet Toilet # Voids 4 8 # Bowel Movements 1 01/19/25 05:48 01/19/25 05:48
[2025-01-21] MEDS: ASPIRIN 81 MG PO SCH (17:18)
--- NOTE | 2025-01-22 09:19 | P.PN ---
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, vascular surgery has been following Would recommend to continue patient on DVT prophylaxis as well assess bilateral lower extremity swelling Fluid overload third spacing, continue gentle diuresis, Cellulitis of the toes, broad-spectrum antibiotics cefepime and vancomycin Hypertension hypertensive cardiovascular disease continue diltiazem and losartan History of smoking and nicotine use, smoking cessation counseling advised and nicotine patch January 22, 2025, patient seen eval examined during rounds labs reviewed medications with care plan discussed, patient remains on broad-spectrum antibiotics for cellulitis of the toes, has been on anticoagulation as well she is remaining afebrile, heart rate is 54 blood pressure hemodynamic status stable, able to taper down the oxygen to room air now saturation 98%, cardiovascular service have evaluated the patient patient is being considered for cardiac catheter angiogram as well as aortogram with runoff January 21, 2025, patient seen eval examined during rounds labs reviewed medications reviewed care plan discussed, some congestion in the throat is present along with shortness of breath however severity has improved, patient remains on bronchodilators steroids tolerating very well, overall changes in the toes not much change, remains on broad-spectrum antibiotic patient remains afebrile with stable hemodynamics oxygen saturation 95% patient is being evaluated for possible transfer to tertiary [facility] by primary service awaiting further evaluation for cardiovascular services January 20/2025, patient seen eval examined, respiratory status slightly improved with breathing treatments, still have some scratchy sensation in throat patient has been on oral Diflucan, no significant change in the toes has been noted however more right Heema and edema in the feet noted suggestive of secondary infection, patient remains on broad-spectrum antibiotics ID service and vascular surgery following patient is being considered for transfer to tertiary care center January 19, 2025, mild shortness of breath is present, patient had a breathing treatment earlier this morning able to cough out the secretions, feeling better, continue on bronchodilators along with IV steroids tolerating well, patient is being anticoagulated with Lovenox, patient is being continued on fluconazole for oral thrush and cefepime for cellulitis of the toes, patient is off of vancomycin patient has been counseled about smoking cessation, patient is being evaluated for possible endoscopy tomorrow January 18, 2025, patient seen eval examined during rounds labs reviewed medications reviewed care plan discussed, dressing from both feet and toes has been removed, edema slightly better, no exudate or discharge seen, toes remains cold. Patient remains on pain management with Tylenol, antidepressant therapy with trazodone patient is being continued on home medicine including Synthroid and metoprolol, remains on broad-spectrum antibiotic with cefepime tolerating well, patient is being gently treated diuresed with Bumex with 1 mg daily has been on bronchodilators as well Solu-Medrol is 40 Q8 will recommend to lower it down slowly bring it down to every 12, check labs tomorrow January 17, 2025, patient seen evaluate examined, slightly better in terms of shortness of breath, lower extremity edema is present, patient continued to be on DVT prophylaxis with Lovenox. Toes are covered with dressing. Patient is afebrile, oxygen saturation 94%. CT chest finding and duplex ultrasound of the legs reviewed 49-year-old female with extensive history of smoking and nicotine use about 1 pack/day for 20 to 25 years quit few weeks ago, she was hospitalized for pneumonia few weeks ago and was treated and subsequently was discharged, she started having numbness and tingling in the toes around December subsequently they turn purple and black, currently her right big toe and third toe is cold and cyanosed also left second and third toe is cold and cyanosed with evidence of cyanosis at the sole of foot bilaterally. Vascular surgery has evaluated the patient, patient had a CT angio with no evidence of obstruction or atherosclerosis seen. Earlier today she had intermittent cough a CT scan of the chest was performed, some scarring was noted along with atelectasis and right upper lobe and right middle lobe and lingula no mass identified, currently patient is on pain medicine along with bronchodilator, broad-spectrum antibiotics with cefepime has been on Solu-Medrol as well Significant prior medical issues include history of DVT PE about 3 years ago for which she was treated, history of smoking and COPD, chronic atrial fibrillation not on any anticoagulation, hypertension hypertensive cardiovascular disease, history of chronic back pain and pancreatitis Objective - Vital Signs Vital signs: Vital Signs Temp 98.1 F 01/22/25 07:55 Pulse 54 L 01/22/25 07:55 Resp 17 01/22/25 07:55 BP 120/84 01/22/25 07:55 Pulse Ox 98 01/22/25 07:55 FiO2 21 01/17/25 07:56 Intake & Output 01/21/25 01/22/25 01/22/25 18:59 06:59 18:59 Output Total 3 Balance -3 Output: Stool 3 Other: Voiding Method Toilet Toilet # Voids 4 - Exam - Constitutional General appearance: average body habitus, cooperative, disheveled - EENT Eyes: EOMI, PERRLA ENT: normal oropharynx Ears: bilateral: normal - Neck Neck: normal ROM Carotids: bilateral: upstroke normal Thyroid: negative: normal size - Respiratory Respiratory: bilateral: CTA - Cardiovascular Rhythm: regular Heart sounds: normal: S1, S2 - Integumentary Integumentary: normal turgor - Neurologic Neurologic: CNII-XII intact - Musculoskeletal Musculoskeletal: gait normal, generalized weakness, strength equal bilaterally - Psychiatric Psychiatric: A&O x's 3, appropriate affect Right big toe and third toe cyanosed cold to touch with cyanosis at the well- circumscribed at the sole of the foot, cyanotic changes also noted in the left second and third toe with similar finding on sole of foot like right - Labs CBC & Chem 7: 01/19/25 05:48 01/19/25 05:48 Assessment and Plan Assessment: COPD with acute exacerbation, IV steroids bronchodilator supportive care, slow taper Peripheral vasculopathy likely related to vasculopathy/Burger's disease/related to smoking, vascular surgery has been following patient is being considered for cardiac cath angiogram along with aortogram with runoff Would recommend to continue patient on DVT prophylaxis as well assess bilateral lower extremity swellig Subsegmental atelectasis on the right upper lobe as well as lingula lobe likely resolving pneumonia, agree with broad-spectrum antibiotics Fluid overload third spacing, continue gentle diuresis, Cellulitis of the toes, broad-spectrum antibiotics cefepime and vancomycin Hypertension hypertensive cardiovascular disease continue diltiazem and losartan History of smoking and nicotine use, smoking cessation counseling advised and nicotine patch Oral thrush on Diflucan, symptoms are improvin Plan: As above Time with Patient: Greater than 30
[2025-01-22] MEDS: HYDROmorphone 0.5 MG/0.5 ML SYRINGE IVP PRN (09:22)
--- NOTE | 2025-01-22 10:25 | P.GSCN ---
History of Present Illness Consult date: 01/22/25 Reason for Consult: Ischemic right great toe Requesting physician: Efra Tuttle History of present illness: This a pleasant 49-year-old female who we were recently consulted for vasculitis of the lower extremities and toes. Patient has been admitted for the past 2 weeks and is being treated for vasculitis, COPD exacerbation, possible pneumonia, reported throat infection per patient, thrush and cellulitis. Vascular surgery was reconsulted by infectious disease for right ischemic toe. She remains on IV antibiotics. She has multiple consultants on including pulmonology, infectious disease, cardiology and hematology. We had seen patient previously for ischemic toes bilateral feet, arterial ultrasound as well as CTA of lower extremities showed patent arterial flow bilaterally, with arterial duplex showing microvascular disease at the toes. Patient is a smoker and toe ischemia thought to be secondary to Buerger's disease. Hematology was working patient up for possible clotting disorders. They recommend outpatient follow-up and have signed off. Cardiology had seen patient yesterday and are considering possible coronary angiogram and possible lower extremity angiogram with runoff. While on consultation earlier in this admission we discussed with patient there was no vascular intervention to improve blood flow to her toe that it was all secondary to microvascular disease. Discussed allowing toes to demarcate and follow-up as an outpatient to reevaluate for possible need for amputation at that time however patient is still hospitalized. Patient states there has been some discussion that her primary care physician was recommending transfer to a tertiary center for second opinion. Previous wound culture with no growth as well as sputum cultures with no growth. Currently on aspirin 81 mg daily and Lovenox 40 mg daily. Patient currently states breathing is improved, still has numbness and tingling in her fingertips and bilateral hands, numbness and tingling in her feet as well as pain to both feet which she states feels like it is in her tendon. Continues to have lower extremity swelling left greater than right. Patient states improves with elevation. Review of Systems A 14 point review systems was completed all pertinent positives and negatives as stated in the HPI. Past Medical History Past Medical History: Atrial Fibrillation, Hypertension, Pulmonary Embolus (PE), Thyroid Disorder Additional Past Medical History / Comment(s): Pt states she has an arrythmia (afib), pancreatitis and chronic back and neck pain. Herniated Disk History of Any Multi-Drug Resistant Organisms: CRE, Other MDRO Year Discovered:: 07/16/21 MDRO Source:: URINE Past Surgical History: Appendectomy, Orthopedic Surgery Additional Past Surgical History / Comment(s): titanium wrist right, abdominal exploratory open appy, left elbow pin from falling out of tree Past Anesthesia/Blood Transfusion Reactions: No Reported Reaction Past Psychological History: Anxiety, Depression, PTSD Smoking Status: Current every day smoker Past Alcohol Use History: Heavy Past Drug Use History: None Reported - Past Family History Father History Unknown: Yes Family Medical History: Osteoarthritis (OA) Medications and Allergies Home Medications Medication Instructions Recorded Confirmed Type Nicotine 21Mg/24Hr Patch [Habitrol] 1 patch TRANSDERM DAILY #42 patch 01/18/24 01/08/25 Rx Ferrous Sulfate [Iron (65 MG 325 mg PO DAILY 12/22/24 01/08/25 History Elemental)] Bumetanide [Bumex] 1 mg PO DAILY #30 tablet 12/29/24 01/08/25 Rx Gabapentin [Neurontin] 300 mg PO TID 3 Days #90 cap 12/29/24 01/08/25 Rx LORazepam [Ativan] 0.5 mg PO BID PRN #20 tab 12/29/24 01/08/25 Rx Levothyroxine Sodium [Euthyrox] 75 mcg PO DAILY #30 tablet 12/29/24 01/08/25 Rx Metoprolol Tartrate [Lopressor] 50 mg PO BID #60 tab 12/29/24 01/08/25 Rx Pantoprazole [Protonix] 40 mg PO BID #60 tab 12/29/24 01/08/25 Rx Prazosin HCl [Minipress] 2 mg PO HS #30 capsule 12/29/24 01/08/25 Rx Sertraline [Zoloft] 100 mg PO BID #60 tab 12/29/24 01/08/25 Rx traZODone HCL [Desyrel] 50 mg PO TID PRN #90 tab 12/29/24 01/08/25 Rx Budesonide/Formoterol Fumarate 2 puff INHALATION RT-BID 01/08/25 01/08/25 History [Symbicort 160-4.5 Mcg Inhaler] HYDROcodone/APAP 7.5-325MG [[place] 1 tab PO Q12H 01/08/25 01/08/25 History 7.5-325] Potassium Citrate [Urocit-K ER] 15 meq PO PC-BID 01/08/25 01/08/25 History Umeclidinium [place] [Incruse 1 puff INHALATION RT-DAILY 01/08/25 01/08/25 History Ellipta] Allergies Allergy/AdvReac Type Severity Reaction Status Date / Time Penicillins Allergy Unknown Unknown Verified 01/08/25 09:42 Childhood Surgical - Exam Vital Signs Temp Pulse Resp BP Pulse Ox 98.5 F 82 18 145/93 96 01/07/25 16:37 01/07/25 16:37 01/07/25 16:37 01/07/25 16:37 01/07/25 16:37 General appearance: The patient is alert, oriented, appears in no acute distress. HET: Head is normocephalic and atraumatic. Pupils are equal and reactive. Neck: Supple. Heart: Regular. Lungs: Equal expansion, clear to auscultation bilaterally, normal respiratory effort. Abdomen: Soft, nondistended. Extremities: Bilateral lower extremity swelling, left greater than right. Feet are warm to the touch with brisk capillary refill. Right foot with right great toe cool to the touch ischemia tip to mid toe with skin sloughing with moe bcutaneous tissue pink/red, third toe cool, tip dry gangrene with good capillary refills to toes. Left foot second toe distal tip with dry gangrene, cool, good capillary refill. Third toe with skin sloughing to tip of toe with underlying tissue pink pink. No erythema to dorsal aspects of feet or toes, cellulitis appears to be resolved. Neurological: No focal deficits. Alert and oriented x 3. Results - Labs 01/19/25 05:48 01/19/25 05:48 Assessment and Plan Assessment: 1. Ischemic changes to bilateral toes likely microvascular possible Buerger's disease secondary to smoking 2. Dry gangrene right foot great toe, distal tip third toe 3. Numbness and tingling to fingertips, unclear etiology however not vascular 4. Cellulitis of right foot, resolved 5. Nicotine dependence 6. COPD exacerbation 7. Recent pneumonia 8. History of SVT and reported history of atrial fibrillation per patient 9. History of pulmonary embolism 10. Former alcohol abuse Plan: 1. Recommend knee-high CHELSI hose to bilateral lower extremities for swelling 2. Elevate lower extremities 3. Continue with recommendations from cardiology per notes considering possible coronary angiogram and aortogram of lower extremities 4. Patient with dry gangrene great toe, third toe on right foot and second toe on left foot. From a vascular standpoint no need for antibiotics for dry gangrene, no signs of infection. Continue to allow to demarcate, no plans for amputation at this time. This was all discussed with the patient who verbalized understanding. Thank you for this consultation. We will continue to follow. The impression and plan of care has been dictated as directed. Dr. Ronan Corey performed a history and examination of this patient, discussed the same with the dictator. I agree with the dictator's note ,documented as a scribe. Any additional findings or plans will be noted.
--- NOTE | 2025-01-22 10:41 | P.CRDCN ---
History of Present Illness History of present illness: HISTORY OF PRESENT ILLNESS: This is a pleasant 49-year-old with past medical history significant for hypertension, hyperlipidemia, obesity, prior PE approximately 3 years ago, ischemic toes, recent fall with shoulder injury and congestive heart failure. There is some mention of atrial fibrillation however patient states only that she was told she had it however does have a history of SVT. She had a PE previously and was on short-term anticoagulation and this was felt possibly related to after her COVID infection and COVID vaccination. She has had 2 prolonged hospitalizations in the last 3 to 4 weeks. Initially she presented with chest pain, shortness of breath and underwent cardiac workup with echo showing preserved EF. She states however that when she presented she was having some numbness and tingling in her digits both upper and lower extremity. She underwent extensive workup and then was discharged home. She followed up with PCP and within 24 hours had worsening lower extremity pain and discoloration in her toes as well as a trip and fall and injured her shoulder. She therefore came back to the hospital. She has had severe discoloration of her toes and therefore underwent workup with a CTA which was read out as no significant obstructive vascular disease as well as ANGELA with elevated ANGELA readings 1.6, 1.7. There was concern of hypercoagulable state as well as vasculitis and Buerger's disease from her tobacco abuse. She has been on high dose steroids without any significant major improvement in digits still black and discolored and painful and numb. She still has been having intermittent chest pain and mild dyspnea. She has not been very active however. Original troponin normal. No evidence of any atrial fibrillation on her prior EKGs. There was a prior episode of SVT where she received adenosine. 01/23/2025 Patient examined this morning at the bedside. Patient currently denies any chest pain or pressure. She denies any shortness of breath. She is up ambulating independently in her room. Vital signs are stable. PHYSICAL EXAM: VITAL SIGNS: Reviewed. GENERAL: Well-developed in no acute distress. NECK: Supple. No JVD or thyromegaly LUNGS: Respirations even and unlabored. Lungs essentially clear to auscultation bilaterally. HEART: Regular rate and rhythm. S1 and S2 heard. EXTREMITIES: Normal range of motion. No clubbing or cyanosis. Patient with dry gangrene to bilateral lower extremities. Right great toe necrotic. Left foot second toe necrotic. ASSESSMENT: Atypical chest pain, troponin negative Chronic congestive heart failure with preserved EF, 55 to 60% Tobacco abuse recently states she is going to quit Recent diagnosis of pneumonia Acute bilateral toe ischemia. Concern of Buerger's disease versus microvascular disease, vasculitis Dyspnea History of SVT Reported atrial fibrillation, none currently documented History of PE PLAN: Continue current cardiac medications including aspirin, Bumex, Cardizem, l osartan, and metoprolol N.p.o. at midnight Patient to undergo bilateral lower extremity angiogram tomorrow with Dr. Irizarry Further recommendations pending patient course Nurse practitioner note has been reviewed by physician. Signing provider agrees with the documented findings, assessment, and plan of care documented by [employer] as a scribe. Past Medical History Past Medical History: Atrial Fibrillation, Hypertension, Pulmonary Embolus (PE), Thyroid Disorder Additional Past Medical History / Comment(s): Pt states she has an arrythmia (afib), pancreatitis and chronic back and neck pain. Herniated Disk History of Any Multi-Drug Resistant Organisms: CRE, Other MDRO Date of last positivie culture/infection: 07/16/21 MDRO Source:: URINE Past Surgical History: Appendectomy, Orthopedic Surgery Additional Past Surgical History / Comment(s): titanium wrist right, abdominal exploratory open appy, left elbow pin from falling out of tree Past Anesthesia/Blood Transfusion Reactions: No Reported Reaction Past Psychological History: Anxiety, Depression, PTSD Smoking Status: Current every day smoker Past Alcohol Use History: Heavy Past Drug Use History: None Reported - Past Family History Father History Unknown: Yes Family Medical History: Osteoarthritis (OA) Medications and Allergies Home Medications Medication Instructions Recorded Confirmed Type Nicotine 21Mg/24Hr Patch [Habitrol] 1 patch TRANSDERM DAILY #42 patch 01/18/24 01/08/25 Rx Ferrous Sulfate [Iron (65 MG 325 mg PO DAILY 12/22/24 01/08/25 History Elemental)] Bumetanide [Bumex] 1 mg PO DAILY #30 tablet 12/29/24 01/08/25 Rx Gabapentin [Neurontin] 300 mg PO TID 3 Days #90 cap 12/29/24 01/08/25 Rx LORazepam [Ativan] 0.5 mg PO BID PRN #20 tab 12/29/24 01/08/25 Rx Levothyroxine Sodium [Euthyrox] 75 mcg PO DAILY #30 tablet 12/29/24 01/08/25 Rx Metoprolol Tartrate [Lopressor] 50 mg PO BID #60 tab 12/29/24 01/08/25 Rx Pantoprazole [Protonix] 40 mg PO BID #60 tab 12/29/24 01/08/25 Rx Prazosin HCl [Minipress] 2 mg PO HS #30 capsule 12/29/24 01/08/25 Rx Sertraline [Zoloft] 100 mg PO BID #60 tab 12/29/24 01/08/25 Rx traZODone HCL [Desyrel] 50 mg PO TID PRN #90 tab 12/29/24 01/08/25 Rx Budesonide/Formoterol Fumarate 2 puff INHALATION RT-BID 01/08/25 01/08/25 His tory [Symbicort 160-4.5 Mcg Inhaler] HYDROcodone/APAP 7.5-325MG [Wilkinson 1 tab PO Q12H 01/08/25 01/08/25 History 7.5-325] Potassium Citrate [Urocit-K ER] 15 meq PO PC-BID 01/08/25 01/08/25 History Umeclidinium [place] [Incruse 1 puff INHALATION RT-DAILY 01/08/25 01/08/25 History Ellipta] Allergies Allergy/AdvReac Type Severity Reaction Status Date / Time Penicillins Allergy Unknown Unknown Verified 01/08/25 09:42 Childhood Physical Exam Vitals: Vital Signs Temp Pulse Resp BP Pulse Ox 01/22/25 07:55 98.1 F 54 L 17 120/84 98 01/22/25 01:20 98.6 F 64 17 128/84 95 01/21/25 19:16 97.5 F L 72 17 134/84 98 01/21/25 13:47 98.2 F 67 17 106/77 97 Intake and Output 01/21/25 01/22/25 01/22/25 22:59 06:59 14:59 Output Total 3 Balance -3 Output: Stool 3 Other: Voiding Method Toilet # Voids 4 Results 01/19/25 05:48 01/19/25 05:48 Current Medications Generic Name Dose Route Start Last Admin Trade Name Freq PRN Reason Stop Dose Admin Acetaminophen 650 mg 01/07/25 22:18 Acetaminophen Tab 325 Mg Tab PO Q6HR PRN Mild Pain or Fever > 100.5 Hydrocodone Bitart/Acetaminophen 1 each 01/07/25 22:18 01/20/25 06:54 Hydrocodone/Apap 5-325mg 1 Each Tab PO 1 each Q4HR PRN Administration Moderate Pain (Scale 4 to 6) Albuterol/Ipratropium 3 ml 01/08/25 08:00 01/22/25 10:22 Ipratropium-Albuterol 3 Ml Neb INHALATION Not Given RT-QID [facility] Aspirin 81 mg 01/21/25 14:00 01/22/25 09:20 Aspirin 81 Mg PO 81 mg DAILY MISAEL Administration Bumetanide 1 mg 01/08/25 09:00 01/22/25 09:20 Bumetanide 1 Mg Tab PO 1 mg DAILY MISAEL Administration Diltiazem HCl 60 mg 01/12/25 14:00 01/22/25 09:20 Diltiazem Oral 60 Mg Tab PO 60 mg BID MISAEL Administration Enoxaparin Sodium 40 mg 01/15/25 16:30 01/22/25 09:20 Enoxaparin 40 Mg/0.4 Ml Syringe SQ 40 mg DAILY MISAEL Administration Ferrous Sulfate 325 mg 01/08/25 09:00 01/22/25 09:20 Ferrous Sulfate 325 Mg Tab PO 325 mg DAILY MISAEL Administration Fluconazole 200 mg 01/17/25 15:30 01/22/25 09:20 Fluconazole 100 Mg Tab PO 200 mg DAILY MISAEL Administration Protocol Gabapentin 300 mg 01/08/25 09:00 01/22/25 09:20 Gabapentin 300 Mg Cap PO 300 mg TID MISAEL Administration Guaifenesin/Dextromethorphan 1 each 01/12/25 23:30 01/22/25 09:20 Guaifenesin-Dm 600/30mg 1 Each Tab.Er.12h PO 1 each Q12HR MISAEL Administration Hydromorphone HCl 1 mg 01/07/25 22:18 01/22/25 04:46 Hydromorphone 1 Mg/Ml 1 Ml Syringe IVP 1 mg Q3HR PRN Administration Severe Pain (Scale 7 to 10) Hydromorphone HCl 0.5 mg 01/07/25 22:18 01/22/25 09:22 Hydromorphone 0.5 Mg/0.5 Ml Syringe IVP 0.5 mg Q3HR PRN Administration Moderate Pain (Scale 4 to 6) Sodium Chloride 1,000 mls @ 20 mls/hr 01/07/25 22:30 01/21/25 23:52 Saline 0.9% IV Not Given .Q24H MISAEL Cefepime HCl 2 gm/ Sodium 100 mls @ 25 mls/hr 01/10/25 16:00 01/22/25 09:21 Chloride IVPB 25 mls/hr Q8HR MISAEL Administration Protocol Levothyroxine Sodium 75 mcg 01/08/25 06:30 01/22/25 06:21 Levothyroxine 75 Mcg Tab PO 75 mcg DAILY@0630 MISAEL Administration Lorazepam 0.5 mg 01/08/25 00:38 01/22/25 06:24 Lorazepam 0.5 Mg Tab PO 0.5 mg BID PRN Administration Anxiety Lorazepam 1 mg 01/20/25 22:04 01/21/25 12:55 Lorazepam 1 Mg/0.5 Ml Vial IV 1 mg Q4HR PRN Administration Anxiety Losartan Potassium 25 mg 01/11/25 10:15 01/22/25 09:20 Losartan 25 Mg Tab PO 25 mg DAILY MISAEL Administration Magnesium Oxide 400 mg 01/08/25 00:45 01/22/25 09:20 Magnesium Oxide 400 Mg Tab PO 400 mg BID MISAEL Administration Methylprednisolone Sodium Succinate 40 mg 01/18/25 21:00 01/22/25 09:21 Methylprednisolone Sod Succi 40 Mg/Ml 1 Ml Vial IV 40 mg Q12HR MISAEL Administration Metoprolol Tartrate 50 mg 01/08/25 09:00 01/22/25 09:20 Metoprolol Tartrate 50 Mg Tab PO 50 mg BID MISAEL Administration Naloxone HCl 0.2 mg 01/07/25 22:18 Naloxone 0.4 Mg/Ml 1 Ml Vial IV Q2M PRN Opioid Reversal Nicotine 1 patch 01/08/25 09:00 01/22/25 09:21 Nicotine 21mg/24hr Patch TRANSDERM 1 patch DAILY MISAEL Administration Nystatin 500,000 unit 01/10/25 13:30 01/22/25 09:20 Nystatin 100,000 Unit/Ml Susp 500,000 Unit/5 Ml Cup PO 500,000 unit QID MISAEL Administration Protocol Pantoprazole Sodium 40 mg 01/08/25 09:00 01/22/25 09:20 Pantoprazole 40 Mg Tablet PO 40 mg BID MISAEL Administration Potassium Chloride 10 meq 01/08/25 09:00 01/22/25 09:20 Potassium Chloride Er 10 Meq Tab.Er.Prt PO 10 meq DAILY MISAEL Administration Sertraline HCl 100 mg 01/08/25 09:00 01/22/25 09:20 Sertraline 100 Mg Tab PO 100 mg BID MISAEL Administration Tramadol HCl 50 mg 01/07/25 22:18 01/19/25 06:30 Tramadol 50 Mg Tab PO 50 mg Q6H PRN Administration Moderate Pain (Scale 4 to 6) Trazodone HCl 50 mg 01/08/25 00:38 01/22/25 09:20 Trazodone Hcl 50 Mg Tab PO 50 mg TID PRN Administration Anxiety Intake and Output 01/21/25 01/22/25 01/22/25 22:59 06:59 14:59 Output Total 3 Balance -3 Output: Stool 3 Other: Voiding Method Toilet # Voids 4 01/19/25 05:48 01/19/25 05:48
--- NOTE | 2025-01-22 12:21 | PN ---
PROGRESS NOTE A 49-year-old white female, admitted with vasculitis type syndrome, Buerger syndrome. She had her toenail taken off by a bandage that was wrapped on too tightly. She has 2 open wounds superficially on 2 toes of the foot. She has been seen by Dr. Tuttle, analyst microbiology lab, can have a heart cath tomorrow, and her white count remains high at 13.5, hemoglobin 11.7. Vascular has signed off, but we are going to get them re-signed on. Cardiolipins are all negative. Total bilirubin 0.2. She got Pulmonary, Cardiology, vascular, infectious Disease, possibly entertain transferring to another hospital, depending on what cardiology finds on her heart cath. PHYSICAL EXAMINATION: LUNGS: Clear. CARDIOVASCULAR: S1 and S2. ENDOCRINE: BMI is over 40. INTEGUMENT: As mentioned above, the left foot, 4th digit, the toenails removed. The right great toe has black eschar on the bottom of the toe. An open red, raw, wound on the anterior part of the toe where the tissue came off. She is on broad-spectrum antibiotics and pulmonary treatments. No signs of alcohol withdrawal at this point. Prognosis is guarded. Wait for new vascular opinions. Antibiotics per Dr. Tuttle. Wait for Dr. Rodriguez's heart catheterization and possibly go from there on transfer to [facility]. They will take care. MMODL / IJN: [id number] /
--- NOTE | 2025-01-22 17:25 | P.PN ---
Subjective Progress Note Date: 01/22/25 Principal diagnosis: Reason for follow-up is right foot cellulitis Patient is a 49-year-old female with a past medical history significant for atrial fibrillation hypertension PE hypothyroidism recent admission to the hospital treated for pneumonia now presenting to the hospital concerning of bilateral big toe discoloration more on the right side with associated pain CT angiogram did not show any evidence of vascular occlusion vascular surgery is following the patient ID consulted because of ascending lymphangitis on the right side concerning for cellulitis. On today's evaluation that is 01/22/2025,the patient denies any fever or any chills, patient is breathing comfortably on room air, the patient denies chest pain currently have occasional cough no nausea vomiting no abdominal pain no worsening pain to the bilateral feet 2. No new labs has been obtained today Objective - Vital Signs Vital signs: Vital Signs Temp 97.6 F 01/22/25 15:22 Pulse 65 01/22/25 15:22 Resp 17 01/22/25 15:22 BP 114/77 01/22/25 15:22 Pulse Ox 96 01/22/25 15:22 FiO2 21 01/17/25 07:56 Intake & Output 01/21/25 01/22/25 01/22/25 18:59 06:59 18:59 Output Total 3 Balance -3 Output: Stool 3 Other: Voiding Method Toilet Toilet Toilet # Voids 4 3 - Exam GENERAL DESCRIPTION: Middle-age female lying in bed in no distress RESPIRATORY SYSTEM: Unlabored breathing , decreased breath sounds at bases HEART: S1 S2 regular rate and rhythm , ABDOMEN: Soft , no tenderness EXTREMITIES: Toes are currently dressed redness has resolved minimal swelling - Labs CBC & Chem 7: 01/19/25 05:48 01/19/25 05:48 Assessment and Plan (1) Cellulitis of right foot Current Visit: Yes Status: Acute Priority: High Code(s): L03.115 - CELLULITIS OF RIGHT LOWER LIMB SNOMED Code(s): 51536884539172770 (2) Thrush Current Visit: Yes Status: Acute Code(s): B37.0 - CANDIDAL STOMATITIS SNOMED Code(s): 18048040 (3) Tracheobronchitis Current Visit: No Status: Acute Code(s): J40 - BRONCHITIS, NOT SPECIFIED ACUTE OR CHRONIC SNOMED Code(s): 96436715 Plan: 1patient presented to hospital with bilateral big toe discoloration and pain in this patient who did have CT did not show any peripheral arterial disease with a question of possibly macrovascular versus Burger disease and is being followed by vascular surgery and now with concern for possible developing lymphangitis/cellulitis especially to the right foot area likely from gram- positive skin rodolfo. 2patient with a penicillin allergy that will limit the number of antibiotics safe to use. 3patient did have evidence of thrush and is not complaining of persistent syndrome as well as some dysphagia concern for possible oropharyngeal candidiasis continue with Diflucan and nystatin swish and swallow 4patient is complaining of cough and greenish sputum production sputum cultures obtained which are currently pending local culture also obtained which are so far negative 5patient is afebrile right foot dorsum redness has decreased still have discoloration to the right great toe and left second toe hematology and vascular surgery following the 6-patient apparently scheduled for angiogram by cardiology care discussed with the vascular surgeon on the floor mention may need possible amputation of the right big toe down the road for now continue with the cefepime empirically Dictation was produced using [employer] dictation software. please excuse any grammatical, word or spelling errors. Time with Patient: Less than 30
--- NOTE | 2025-01-22 23:05 | PN ---
PROGRESS NOTE SUBJECTIVE: A 49-year-old white female, vasculitis type syndromes over the toes. The patient has had more skin coming off the bilateral 2 toes on the left, 2 toes on the right. The wounds themselves look red under the black eschar that is coming off, 1 toenail fell off. Get a second opinion with the vascular doctor today. Going to get a dye test tomorrow to look for obstruction in her arteries, going down her legs tomorrow with Dr. Irizarry. Her pneumonia has improved. PHYSICAL EXAMINATION: CARDIOVASCULAR: S1, S2. LUNGS: Clear. GI: Soft. EXTREMITIES: As mentioned above. ASSESSMENT: 1. Peripheral arterial disease. 2. Vasculitis type syndrome, unclear etiology. 3. History of alcoholism. 4. History of pneumonia. 5. Chronic obstructive pulmonary disease. 6. Alcohol dependence. Prognosis guarded. Cellulitis of the legs. IV antibiotics. Second opinion on the vascular. Wound care per Dr. Tuttle. Trying to transfer to [facility] . Further work on transferring will be done depending on patient's improvement. We will get her arteriogram tomorrow with Dr. Irizarry. MMODL / IJN: [id number] /
[2025-01-23] MEDS ORDERED: ALPRAZolam 0.25 MG TAB PO PRN (05:36)
[2025-01-23] MEDS ORDERED: ALPRAZolam 0.5 MG TAB PO PRN (05:36)
[2025-01-23] MEDS: IV FLUID CONTINUATION 1,000 ML IV ONE (07:42)
[2025-01-23] MEDS: HEPARIN SODIUM,PORCINE 10,000 UNIT in SODIUM CHLORIDE 0.9% 1,000 ML IRRIGATION PRN (07:43)
[2025-01-23] MEDS: HEPARIN SODIUM,PORCINE (1 ML) 2,500 UNIT in SODIUM CHLORIDE 0.9% 250 ML IRRIGATION PRN (07:43)
[2025-01-23] MEDS: fentaNYL (PF) 50 MCG/ML 2 ML AMP IVP ONE (08:07)
[2025-01-23] MEDS: LIDOCAINE 1% INJ 10MG/ML (20 ML MDV) SQ ONE (08:07)
[2025-01-23] MEDS: MIDAZOLAM 2 MG/2 ML VIAL IVP ONE (08:07)
[2025-01-23] MEDS: HYDROmorphone 1 MG/ML 1 ML SYRINGE IVP ONE (08:12)
[2025-01-23] MEDS ORDERED: NALOXONE 0.4 MG/ML 1 ML VIAL IVP PRN (08:23)
--- NOTE | 2025-01-23 08:29 | P.PCN ---
Date of Procedure: 01/23/25 Operative Findings: AN ABDOMINAL AORTOGRAM AND BILATERAL LOWER EXTREMITIES RUNOFF PERFORMING PHYSICIAN: Edmund Irizarry MD PROCEDURE PERFORMED: 1. An abdominal aortogram 2. Bilateral lower extremities runoff 3. Ultrasound-guided access of the right radial artery INDICATION: Critical limb ischemia of both legs COMPLICATION: None LEVEL OF SEDATION: Moderate was sedation length of 13 minutes APPROACH: Right common femoral artery PROCEDURE DESCRIPTION: After obtaining informed consent and explaining the procedure benefits, risks, and complications, the patient was brought to the cardiac laboratory technical specialist. The right radial artery was cannulated using micropuncture technique under ultrasound guidance a micropuncture wire passed easily then I placed a 5 Sudanese 11 cm sheath at the right radial artery and give the patient 2 mg of verapamil intra- arterial and 5000's of heparin intravenous. We did an abdominal aortogram and bilateral lower extremities runoff using 5-Sudanese pigtail catheter using a power injection. The catheter was initially placed at the level of the renal arteries, and it was pulled into above the bifurcation of the aorta into right and left common iliac arteries. The procedure was completed and there was no complications. SELECTIVE PERIPHERAL ANGIOGRAM: The abdominal aorta: Is angiographically normal The common iliac arteries: Are angiographically normal The external iliac arteries: Are angiographically normal The internal iliac arteries: Are patent The common femoral arteries: Are angiographically normal Superficial femoral arteries: Are angiographically normal Popliteal arteries: Are angiographically normal Below the knees: The artery below the knee were poorly visualized/opacified but there is at least posterior tibial and peroneal arteries open bilaterally. CONCLUSION: Normal infrarenal aorta and bilateral iliac arteries Normal femoral and popliteal arteries bilaterally At least two vessels runoff below the knee bilaterally with patent posterior tibial and peroneal and poorly opacified anterior tibial artery POSTPROCEDURE MANAGEMENT: The finding is likely consistent with an inflammatory process and possibly Buerger's disease. I will treat the patient medically. Consider evaluating the patient at the wound clinic. Consider smoking cessation.
[2025-01-23] MEDS: HEPARIN SODIUM 1,000 UN/ML (10ML VL) IVP ONE (08:30)
[2025-01-23 08:46] LABS: ALT 56 U/L (8-44); AST 19 U/L (13-35); Albumin 3.9 g/dL (3.8-4.9); Albumin/Globulin Ratio 1.77 Ratio (1.60-3.17); Alkaline Phosphatase 93 U/L (41-126); BUN/Creat Ratio 42.78 Ratio (12.00-20.00); Blood Urea Nitrogen 38.5 mg/dL (9.0-27.0); Calcium 9.7 mg/dL (8.7-10.3); Carbon Dioxide 26.7 mmol/L (21.6-31.8); Chloride 97 mmol/L (96-109); Globulin 2.2 g/dL (1.6-3.3); Glucose 145 mg/dL (70-110); Potassium 4.4 mmol/L (3.5-5.5); Sodium 136 mmol/L (135-145); Total Bilirubin <0.2 mg/dL (0.3-1.2); Total Protein 6.1 g/dL (6.2-8.2)
--- NOTE | 2025-01-23 08:58 | IR ---
EXAMINATION TYPE: IR angio abdominal w runoff DATE OF EXAM: 01/23/2025 8:40 AM COMPARISON: Pre Operative Images if available both CT/MRI or plain film CLINICAL INDICATION: Female, 49 years old with history of Bilateral Foot Pain, 1.8 min FL, 88.4 GY cm 2; TECHNIQUE: IR angio abdominal w runoff, multiple fluoroscopic images provided for procedure. DAP: 88.4 GY cm2 FINDINGS: IMPRESSION: 1. Report was generated for administrative purposes only. 2. Please see the operative/procedural note for further details. [facility], , 01/23/2025 8:56 AM
[2025-01-23 09:15] LABS: HCT 40.3 % (37.2-46.3); HGB 12.8 g/dL (12.0-15.0); MCHC 31.8 g/dL (32.0-37.0); MCV 100.8 FL (80.0-97.0); Mean Platelet Volume 10.6 FL (9.5-12.2); NRBC Per 100 WBC 0 X 10*3/uL (0.00-0.01); Platelet Count 206 X 10*3/uL (140-440); RDW 16.8 % (11.5-14.5); WBC 15.28 X 10*3/uL (4.50-10.00)
[2025-01-23 09:16] LABS: Basophils # (A) 0.05 X 10*3/uL (0.00-0.10); Basophils % (A) 0.3 %; Eosinophils # (A) 0.02 X 10*3/uL (0.04-0.35); Eosinophils % (A) 0.1 %; Lymphocytes # (A) 2.48 X 10*3/uL (0.90-5.00); Lymphocytes % (A) 16.2 %; Monocytes # (A) 1.11 X 10*3/uL (0.20-1.00); Monocytes % (A) 7.3 %; Neutrophils # (A) 11.47 X 10*3/uL (1.80-7.70); Neutrophils % (A) 75.1 %
[2025-01-23] MEDS: SODIUM CHLORIDE 0.9% 1,000 ML in EMPTY BAG 1 BAG IV ONE (09:42)
[2025-01-23] MEDS: SODIUM CHLORIDE 0.9% 1,000 ML in EMPTY BAG 1 BAG IV SCH (10:22)
--- NOTE | 2025-01-23 10:57 | P.PN ---
Subjective Progress Note Date: 01/23/25 Principal diagnosis: Microvascular disease Patient is seen and examined today as a follow-up. This morning she underwent abdominal aortogram with runoff with Dr. Irizarry. Findings reported as normal infrarenal aorta and bilateral iliac arteries, normal femoral and popliteal arteries bilaterally and at least two-vessel runoff below the knee bilaterally with patent posterior tibial and peroneal and poorly opacified anterior tibial artery. Reported that findings consistent with inflammatory process and possible Buerger's disease. Recommends medical treatment. Patient states she still has some numbness and tingling in her fingers and pain in her feet and toes. Left foot second toe with sloughing of outer skin and toenail through the night. She remains afebrile. Denies any fevers or chills. Objective - Vital Signs Vital signs: Vital Signs Temp 97.8 F 01/23/25 01:35 Pulse 67 01/23/25 08:53 Resp 16 01/23/25 08:53 BP 123/74 01/23/25 08:53 Pulse Ox 96 01/23/25 08:53 FiO2 21 01/17/25 07:56 Intake & Output 01/22/25 01/23/25 01/23/25 18:59 06:59 18:59 Intake Total 575 Balance 575 Intake: IV 575 Other: Voiding Method Toilet Toilet # Voids 4 1 - Exam General appearance: The patient is alert, oriented, appears in no acute distress. Obese. HET: Head is normocephalic and atraumatic. Neck: Supple. Abdomen: Soft, nnondistended. Extremities: Palpable bilateral radial pulses. Bilateral hands and fingertips warm to the touch, no discoloration noted with good capillary refill. Bilateral lower extremities with swelling, left greater than right. Right foot great toe with necrotic, nonviable tissue distal tip to mid great toe along plantar as well as dorsal aspect of toe. Area where skin sloughed off and great toe is pink. Ischemic changes to plantar aspect of ball of foot under great toe was some improvement in color today. Third toe right foot distal tip with dry gangrene. Left foot second and third toes with distal tip nonviable tissue, outer skin sloughed off with pink viable tissue beneath. Brisk capillary refill bilateral feet. Toes cool to touch otherwise feet and legs warm. Sensorimotor intact. Neurological: Patient is alert and oriented x 3. No focal deficits noted. - Labs CBC & Chem 7: 01/23/25 05:26 01/23/25 05:26 Labs: Abnormal Lab Results - Last 24 Hours (Table) 01/23/25 01/23/25 Range/Units 05:26 05:26 WBC 15.28 H (4.50-10.00) X 10*3/uL RBC 4.00 L (4.10-5.20) X 10*6/uL MCV 100.8 H (80.0-97.0) FL MCHC 31.8 L (32.0-37.0) g/dL RDW 16.8 H (11.5-14.5) % Immature Gran # 0.15 H (0.00-0.04) X 10*3/uL Neutrophils # 11.47 H (1.80-7.70) X 10*3/uL Monocytes # 1.11 H (0.20-1.00) X 10*3/uL Eosinophils # 0.02 L (0.04-0.35) X 10*3/uL Anion Gap 12.30 H (4.00-12.00) mmol/L BUN 38.5 H (9.0-27.0) mg/dL BUN/Creatinine Ratio 42.78 H (12.00-20.00) Ratio Glucose 145 H (70-110) mg/dL Total Bilirubin <0.2 L (0.3-1.2) mg/dL ALT 56 H (8-44) U/L Total Protein 6.1 L (6.2-8.2) g/dL Assessment and Plan Assessment: 1. Ischemic changes to bilateral toes likely microvascular possible Buerger's disease secondary to smoking 2. Dry gangrene right foot great toe, distal tip third toe, left foot distal tip second and third toes 3. Numbness and tingling to fingertips, unclear etiology however not vascular 4. Cellulitis of right foot, resolved 5. Nicotine dependence 6. COPD exacerbation 7. Recent pneumonia 8. History of SVT and reported history of atrial fibrillation per patient 9. History of pulmonary embolism 10. Former alcohol abuse Plan: 1. Recommend knee-high CHELSI hose to bilateral lower extremities for swelling 2. Elevate lower extremities 3. Patient underwent aortogram with bilateral lower extremity runoff with cardiology with reported good arterial flow as expected, findings likely consistent with inflammatory process and possible Buerger's disease 4. Dry gangrene without any signs of infection, continue to allow to demarcate. From a vascular standpoint no need for antibiotics. May apply Adaptic Vaseline gauze to left second and third toes and wrap with gauze. 5. Patient is cleared from vascular surgery for discharge. Recommend outpatient follow-up in 1 to 2 weeks with vascular surgery to reevaluate for need for possible amputation. Plan discussed with patient regarding allowing toes to demarcate and see if there will be any improvement in tissue before planning any amputations as to avoid unnecessary amputations. Patient verbalizes understanding. Patient and primary physician seeking second vascular opinion, this can be done as an outpatient with no indication for transfer to tertiary center. Thank you for this consultation. We will be on standby. The impression and plan of care has been dictated as directed. Dr. Ronan Corey performed a history and examination of this patient, discussed the same with the dictator. I agree with the dictator's note ,documented as a scribe. Any additional findings or plans will be noted.
--- NOTE | 2025-01-23 13:11 | P.PN ---
Subjective Progress Note Date: 01/23/25 Principal diagnosis: Reason for follow-up is right foot cellulitis Patient is a 49-year-old female with a past medical history significant for atrial fibrillation hypertension PE hypothyroidism recent admission to the hospital treated for pneumonia now presenting to the hospital concerning of bilateral big toe discoloration more on the right side with associated pain CT angiogram did not show any evidence of vascular occlusion vascular surgery is following the patient ID consulted because of ascending lymphangitis on the right side concerning for cellulitis. On today's evaluation that is 01/23/2025,the patient remains to be afebrile, patient is on room air not requiring supplemental oxygen and denies any shortness of breath no chest pain or any worsening cough.Patient denies having any nausea or vomiting, no abdominal pain and no diarrhea, still complain of discoloration of the toes but no worsening pain or any drainage. Patient white count is up to 15.28 creatinine 0.9 Objective - Vital Signs Vital signs: Vital Signs Temp 97.8 F 01/23/25 01:35 Pulse 67 01/23/25 08:53 Resp 16 01/23/25 08:53 BP 123/74 01/23/25 08:53 Pulse Ox 96 01/23/25 08:53 FiO2 21 01/17/25 07:56 Intake & Output 01/22/25 01/23/25 01/23/25 18:59 06:59 18:59 Intake Total 575 Balance 575 Intake: IV 575 Other: Voiding Method Toilet Toilet # Voids 4 1 - Exam GENERAL DESCRIPTION: Middle-age female lying in bed in no distress RESPIRATORY SYSTEM: Unlabored breathing , decreased breath sounds at bases HEART: S1 S2 regular rate and rhythm , ABDOMEN: Soft , no tenderness EXTREMITIES: Discoloration of the left big toe as well as the left second and third toe no purulent drainage - Labs CBC & Chem 7: 01/23/25 05:26 01/23/25 05:26 Labs: Abnormal Lab Results - Last 24 Hours (Table) 01/23/25 01/23/25 Range/Units 05:26 05:26 WBC 15.28 H (4.50-10.00) X 10*3/uL RBC 4.00 L (4.10-5.20) X 10*6/uL MCV 100.8 H (80.0-97.0) FL MCHC 31.8 L (32.0-37.0) g/dL RDW 16.8 H (11.5-14.5) % Immature Gran # 0.15 H (0.00-0.04) X 10*3/uL Neutrophils # 11.47 H (1.80-7.70) X 10*3/uL Monocytes # 1.11 H (0.20-1.00) X 10*3/uL Eosinophils # 0.02 L (0.04-0.35) X 10*3/uL Anion Gap 12.30 H (4.00-12.00) mmol/L BUN 38.5 H (9.0-27.0) mg/dL BUN/Creatinine Ratio 42.78 H (12.00-20.00) Ratio Glucose 145 H (70-110) mg/dL Total Bilirubin <0.2 L (0.3-1.2) mg/dL ALT 56 H (8-44) U/L Total Protein 6.1 L (6.2-8.2) g/dL Assessment and Plan (1) Cellulitis of right foot Current Visit: Yes Status: Acute Priority: High Code(s): L03.115 - CELLULITIS OF RIGHT LOWER LIMB SNOMED Code(s): 82009692455020611 (2) Thrush Current Visit: Yes Status: Acute Code(s): B37.0 - CANDIDAL STOMATITIS SNOMED Code(s): 18728146 (3) Tracheobronchitis Current Visit: No Status: Acute Code(s): J40 - BRONCHITIS, NOT SPECIFIED ACUTE OR CHRONIC SNOMED Code(s): 97461842 Plan: 1patient presented to hospital with bilateral big toe discoloration and pain in this patient who did have CT did not show any peripheral arterial disease with a question of possibly macrovascular versus Burger disease and is being followed by vascular surgery and now with concern for possible developing lymphangitis/cellulitis especially to the right foot area likely from gram- positive skin rodolfo. 2patient with a penicillin allergy that will limit the number of antibiotics safe to use. 3patient did have evidence of thrush and is complaining of persistent syndrome as well as some dysphagia concern for possible oropharyngeal candidiasis continue with Diflucan and nystatin swish and swallow 4patient is complaining of cough and greenish sputum production sputum cultures obtained which are currently pending local culture also obtained which are so far negative 5patient is afebrile did have some worsening of the white count is up to 15,000 more likely related to steroids as evidence of any worsening infection continue with the cefepime, multiple question concern answered Dictation was produced using [employer] dictation software. please excuse any grammatical, word or spelling errors. Time with Patient: Less than 30
--- NOTE | 2025-01-23 22:45 | PN ---
PROGRESS NOTE A 49-year-old white female. Dr. Irizarry did a procedure today on her for abdominal aortogram, lower extremities runoff, ultrasound-guided access of right radial artery, conclusions normal infrarenal artery and bilateral iliac arteries. Normal femoral and popliteal arteries. Two vessel runoff below the knee bilaterally, patent arteries. She was found to have Buerger's disease. Treat the patient medically, smoking cessation. Continue current treatment. Prognosis is guarded. Dr. Tuttle is treating for infections on the toes. We are going to ask her if she wants to be transferred down to , so far we have been negative and turned down by 2 hospitals. PHYSICAL EXAMINATION: VITAL SIGNS: Blood pressure 123/74, pulse ox 96%, temperature 97.8, pulse 67, respiratory rate is 16 to 18. ASSESSMENT: She has: 1. Tracheobronchitis. 2. Recent pneumonia. 3. Cellulitis of the right foot. 4. Peripheral arterial disease. She is on antibiotics for pneumonia and cellulitis of the feet and order oropharyngeal candidiasis with Diflucan. Prognosis is guarded. MMODL / IJN: [id number] /
[2025-01-24] MEDS ORDERED: ASPIRIN 325 MG TAB PO PRN (07:00)
[2025-01-24 08:17] LABS: Albumin 4.2 g/dL (3.8-4.9); BUN/Creat Ratio 44.62 Ratio (12.00-20.00); Blood Urea Nitrogen 35.7 mg/dL (9.0-27.0); Calcium 9.5 mg/dL (8.7-10.3); Carbon Dioxide 26.5 mmol/L (21.6-31.8); Chloride 96 mmol/L (96-109); Glucose 285 mg/dL (70-110); Sodium 134 mmol/L (135-145); Total Protein 6.5 g/dL (6.2-8.2)
[2025-01-24 08:18] LABS: ALT 86 U/L (8-44); AST 44 U/L (13-35); Albumin/Globulin Ratio 1.83 Ratio (1.60-3.17); Alkaline Phosphatase 95 U/L (41-126); Globulin 2.3 g/dL (1.6-3.3); Total Bilirubin 0.3 mg/dL (0.3-1.2)
[2025-01-24 08:37] LABS: Basophils # (A) 0.02 X 10*3/uL (0.00-0.10); Basophils % (A) 0.1 %; Eosinophils # (A) 0 X 10*3/uL (0.04-0.35); Eosinophils % (A) 0 %; HGB 13.5 g/dL (12.0-15.0); Lymphocytes % (A) 6.2 %; MCH 32.7 pg (27.0-32.0); MCHC 32.1 g/dL (32.0-37.0); MCV 101.7 FL (80.0-97.0); Mean Platelet Volume 10.9 FL (9.5-12.2); Monocytes # (A) 0.32 X 10*3/uL (0.20-1.00); Monocytes % (A) 2.2 %; NRBC Per 100 WBC 0 X 10*3/uL (0.00-0.01); Neutrophils # (A) 13.05 X 10*3/uL (1.80-7.70); Neutrophils % (A) 90.6 %; Platelet Count 215 X 10*3/uL (140-440); RBC 4.13 X 10*6/uL (4.10-5.20); RDW 16.6 % (11.5-14.5); WBC 14.42 X 10*3/uL (4.50-10.00)
--- NOTE | 2025-01-24 09:25 | P.PN ---
Subjective Progress Note Date: 01/24/25 Principal diagnosis: Subsegmental atelectasis on the right upper lobe as well as lingula lobe likely resolving pneumonia, agree with broad-spectrum antibiotics COPD with acute exacerbation, IV steroids bronchodilator supportive care, slow taper 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, vascular surgery has been following Would recommend to continue patient on DVT prophylaxis as well assess bilateral lower extremity swelling Fluid overload third spacing, continue gentle diuresis, Cellulitis of the toes, broad-spectrum antibiotics cefepime and vancomycin Hypertension hypertensive cardiovascular disease continue diltiazem and losartan History of smoking and nicotine use, smoking cessation counseling advised and nicotine patch January 24, 2025, patient seen eval examined during rounds labs reviewed medications reviewed patient is status post aortogram and runoff, normal bilateral iliac and infrarenal aorta are seen normal femoral and popliteal arteries bilaterally recommended medical management. Pulmonary standpoint doing well, hemodynamic status stable saturation 96%. Labs from today reviewed white cell count 14,000 chemistry overall stable, patient is back on room air would recommend to load down to steroids once a day which can be discontinued next 24 to 48 hours January 22, 2025, patient seen eval examined during rounds labs reviewed medications with care plan discussed, patient remains on broad-spectrum antibiotics for cellulitis of the toes, has been on anticoagulation as well she is remaining afebrile, heart rate is 54 blood pressure hemodynamic status stable, able to taper down the oxygen to room air now saturation 98%, cardiovascular service have evaluated the patient patient is being considered for cardiac catheter angiogram as well as aortogram with runoff January 21, 2025, patient seen eval examined during rounds labs reviewed medications reviewed care plan discussed, some congestion in the throat is present along with shortness of breath however severity has improved, patient remains on bronchodilators steroids tolerating very well, overall changes in the toes not much change, remains on broad-spectrum antibiotic patient remains afebrile with stable hemodynamics oxygen saturation 95% patient is being evaluated for possible transfer to tertiary care center by primary service awaiting further evaluation for cardiovascular services January 20/2025, patient seen eval examined, respiratory status slightly improved with breathing treatments, still have some scratchy sensation in throat patient has been on oral Diflucan, no significant change in the toes has been noted however more right Heema and edema in the feet noted suggestive of secondary infection, patient remains on broad-spectrum antibiotics ID service and vascular surgery following patient is being considered for transfer to tertiary care center January 19, 2025, mild shortness of breath is present, patient had a breathing treatment earlier this morning able to cough out the secretions, feeling better, continue on bronchodilators along with IV steroids tolerating well, patient is being anticoagulated with Lovenox, patient is being continued on fluconazole for oral thrush and cefepime for cellulitis of the toes, patient is off of vancomycin patient has been counseled about smoking cessation, patient is being evaluated for possible endoscopy tomorrow January 18, 2025, patient seen eval examined during rounds labs reviewed medications reviewed care plan discussed, dressing from both feet and toes has been removed, edema slightly better, no exudate or discharge seen, toes remains cold. Patient remains on pain management with Tylenol, antidepressant therapy with trazodone patient is being continued on home medicine including Synthroid and metoprolol, remains on broad-spectrum antibiotic with cefepime tolerating well, patient is being gently treated diuresed with Bumex with 1 mg daily has been on bronchodilators as well Solu-Medrol is 40 Q8 will recommend to lower it down slowly bring it down to every 12, check labs tomorrow January 17, 2025, patient seen evaluate examined, slightly better in terms of shortness of breath, lower extremity edema is present, patient continued to be on DVT prophylaxis with Lovenox. Toes are covered with dressing. Patient is afebrile, oxygen saturation 94%. CT chest finding and duplex ultrasound of the legs reviewed 49-year-old female with extensive history of smoking and nicotine use about 1 pack/day for 20 to 25 years quit few weeks ago, she was hospitalized for pneumonia few weeks ago and was treated and subsequently was discharged, she started having numbness and tingling in the toes around 5 december subsequently they turn purple and black, currently her right big toe and third toe is cold and cyanosed also left second and third toe is cold and cyanosed with evidence of cyanosis at the sole of foot bilaterally. Vascular surgery has evaluated the patient, patient had a CT angio with no evidence of obstruction or atherosclerosis seen. Earlier today she had intermittent cough a CT scan of the chest was performed, some scarring was noted along with atelectasis and right upper lobe and right middle lobe and lingula no mass identified, currently patient is on pain medicine along with bronchodilator, broad-spectrum antibiotics with cefepime has been on Solu-Medrol as well Significant prior medical issues include history of DVT PE about 3 years ago for which she was treated, history of smoking and COPD, chronic atrial fibrillation not on any anticoagulation, hypertension hypertensive cardiovascular disease, history of chronic back pain and pancreatitis Objective - Vital Signs Vital signs: Vital Signs Temp 97.7 F 01/24/25 07:35 Pulse 63 01/24/25 07:35 Resp 17 01/24/25 07:35 BP 122/84 01/24/25 07:35 Pulse Ox 96 01/24/25 07:35 FiO2 21 01/17/25 07:56 Intake & Output 01/23/25 01/24/25 01/24/25 18:59 06:59 18:59 Intake Total 1017 118 Balance 1017 118 Intake: IV 575 Oral 442 118 Other: Voiding Method Toilet # Voids 1 2 - Exam - Constitutional General appearance: average body habitus, cooperative, disheveled - EENT Eyes: EOMI, PERRLA ENT: normal oropharynx Ears: bilateral: normal - Neck Neck: normal ROM Carotids: bilateral: upstroke normal Thyroid: negative: normal size - Respiratory Respiratory: bilateral: CTA - Cardiovascular Rhythm: regular Heart sounds: normal: S1, S2 - Integumentary Integumentary: normal turgor - Neurologic Neurologic: CNII-XII intact - Musculoskeletal Musculoskeletal: gait normal, generalized weakness, strength equal bilaterally - Psychiatric Psychiatric: A&O x's 3, appropriate affect Right big toe and third toe cyanosed cold to touch with cyanosis at the well- circumscribed at the sole of the foot, cyanotic changes also noted in the left second and third toe with similar finding on sole of foot like right - Labs CBC & Chem 7: 01/24/25 03:34 01/24/25 03:34 Labs: Abnormal Lab Results - Last 24 Hours (Table) 01/24/25 01/24/25 Range/Units 03:34 03:34 WBC 14.42 H (4.50-10.00) X 10*3/uL MCV 101.7 H (80.0-97.0) FL MCH 32.7 H (27.0-32.0) pg RDW 16.6 H (11.5-14.5) % Immature Gran # 0.13 H (0.00-0.04) X 10*3/uL Neutrophils # 13.05 H (1.80-7.70) X 10*3/uL Eosinophils # 0 L (0.04-0.35) X 10*3/uL Sodium 134 L (135-145) mmol/L BUN 35.7 H (9.0-27.0) mg/dL BUN/Creatinine Ratio 44.62 H (12.00-20.00) Ratio Glucose 285 H (70-110) mg/dL AST 44 H (13-35) U/L ALT 86 H (8-44) U/L Assessment and Plan Assessment: COPD with acute exacerbation, IV steroids bronchodilator supportive care, slow taper changes steroids to once a day which can be discontinued in next 24 to 48 hours Peripheral vasculopathy likely related to vasculopathy/Burger's disease/related to smoking, vascular surgery has been following patient is s/p aortic angiogram along with aortogram with runoff, findings reviewed Would recommend to continue patient on DVT prophylaxis as well assess bilateral lower extremity swellig Subsegmental atelectasis on the right upper lobe as well as lingula lobe likely resolving pneumonia, agree with broad-spectrum antibiotics, now being observe off of antibiotics Fluid overload third spacing, continue gentle diuresis, Cellulitis of the toes, being observed off of antibiotics Hypertension hypertensive cardiovascular disease continue diltiazem and losartan History of smoking and nicotine use, smoking cessation counseling advised and nicotine patch Oral thrush on Diflucan, symptoms are improvin Would recommend follow-up in outpatient follow-up as needed Plan: As above Time with Patient: Greater than 30
--- NOTE | 2025-01-24 09:31 | P.PN ---
Subjective HISTORY OF PRESENT ILLNESS: This is a pleasant 49-year-old with past medical history significant for hypertension, hyperlipidemia, obesity, prior PE approximately 3 years ago, ischemic toes, recent fall with shoulder injury and congestive heart failure. There is some mention of atrial fibrillation however patient states only that she was told she had it however does have a history of SVT. She had a PE previously and was on short-term anticoagulation and this was felt possibly related to after her COVID infection and COVID vaccination. She has had 2 prolonged hospitalizations in the last 3 to 4 weeks. Initially she presented with chest pain, shortness of breath and underwent cardiac workup with echo showing preserved EF. She states however that when she presented she was having some numbness and tingling in her digits both upper and lower extremity. She underwent extensive workup and then was discharged home. She followed up with PCP and within 24 hours had worsening lower extremity pain and discoloration in her toes as well as a trip and fall and injured her shoulder. She therefore came back to the hospital. She has had severe discoloration of her toes and therefore underwent workup with a CTA which was read out as no significant obstructive vascular disease as well as ANGELA with elevated ANGELA readings 1.6, 1.7. There was concern of hypercoagulable state as well as vasculitis and Buerger's disease from her tobacco abuse. She has been on high dose steroids without any significant major improvement in digits still black and discolored and painful and numb. She still has been having intermittent chest pain and mild dyspnea. She has not been very active however. Original troponin normal. No evidence of any atrial fibrillation on her prior EKGs. There was a prior episode of SVT where she received adenosine. 01/22/2025 Patient examined this morning at the bedside. Patient currently denies any chest pain or pressure. She denies any shortness of breath. She is up ambulating independently in her room. Vital signs are stable. 01/24/2025 Patient is status post lower extremity angiogram with Dr. Irizarry revealing normal infrarenal aorta and bilateral iliac arteries, normal femoral and popliteal arteries bilaterally, at least two-vessel runoff below the knee bilaterally with patent posterior tibial and peroneal and poorly opacified anterior tibial artery. Medical management was recommended. Patient examined this morning the bedside. She denies chest pain or pressure. She denies shortness of breath. Vital signs are stable. PHYSICAL EXAM: VITAL SIGNS: Reviewed. GENERAL: Well-developed in no acute distress. NECK: Supple. No JVD or thyromegaly LUNGS: Respirations even and unlabored. Lungs essentially clear to auscultation bilaterally. HEART: Regular rate and rhythm. S1 and S2 heard. EXTREMITIES: Normal range of motion. No clubbing or cyanosis. Patient with dry gangrene to bilateral lower extremities. Right great toe necrotic. Left foot second toe necrotic. ASSESSMENT: Atypical chest pain, troponin negative Chronic congestive heart failure with preserved EF, 55 to 60% Tobacco abuse recently states she is going to quit Recent diagnosis of pneumonia Acute bilateral toe ischemia consistent with Buerger's disease Dyspnea History of SVT Reported atrial fibrillation, none currently documented History of PE PLAN: Continue current cardiac medications including aspirin, Bumex, Cardizem, losartan, and metoprolol Recommend patient be evaluated at the [facility] Recommend abstinence from smoking. Patient be referred to [place] quit line upon discharge No further inpatient recommendations from a cardiac standpoint We will sign off. Please reconsult if needed. Nurse practitioner note has been reviewed by physician. Signing provider agrees with the documented findings, assessment, and plan of care documented by GROUND SUPPORT AGENT as a scribe. Objective - Vital Signs Vital signs: Vital Signs Temp 97.7 F 01/24/25 07:35 Pulse 63 01/24/25 07:35 Resp 17 01/24/25 07:35 BP 122/84 01/24/25 07:35 Pulse Ox 96 01/24/25 07:35 FiO2 21 01/17/25 07:56 Intake & Output 01/23/25 01/24/25 01/24/25 18:59 06:59 18:59 Intake Total 1017 118 Balance 1017 118 Intake: IV 575 Oral 442 118 Other: Voiding Method Toilet # Voids 1 2 - Labs CBC & Chem 7: 01/24/25 03:34 01/24/25 03:34 Labs: Abnormal Lab Results - Last 24 Hours (Table) 01/24/25 01/24/25 Range/Units 03:34 03:34 WBC 14.42 H (4.50-10.00) X 10*3/uL MCV 101.7 H (80.0-97.0) FL MCH 32.7 H (27.0-32.0) pg RDW 16.6 H (11.5-14.5) % Immature Gran # 0.13 H (0.00-0.04) X 10*3/uL Neutrophils # 13.05 H (1.80-7.70) X 10*3/uL Eosinophils # 0 L (0.04-0.35) X 10*3/uL Sodium 134 L (135-145) mmol/L BUN 35.7 H (9.0-27.0) mg/dL BUN/Creatinine Ratio 44.62 H (12.00-20.00) Ratio Glucose 285 H (70-110) mg/dL AST 44 H (13-35) U/L ALT 86 H (8-44) U/L
--- NOTE | 2025-01-24 14:03 | P.GSCN ---
History of Present Illness Consult date: 01/24/25 History of present illness: CHIEF COMPLAINT: Toe discoloration HISTORY OF PRESENT ILLNESS: This is a 49-year-old female who presented to the hospital with complaints of toe discoloration. She was found to have ischemic changes of the bilateral toes due to her smoking history and evidence of dry gangrene. She is followed by vascular surgery.She also was treated for a COPD exacerbation. Patient has developed thrush during this admission is receiving nystatin swish and swallow. Patient reports she has been having difficulty with swallowing for the last 2 weeks. She reports that she tried to drink broth and it felt like it was getting stuck. Patient reports breakfast this morning she cut into small bites and was able to eat that. Denies any history of EGD. Surgical service has been consulted for an EGD. PAST MEDICAL HISTORY: Atrial Fibrillation, Hypertension, Pulmonary Embolus (PE), Thyroid Disorder, pancreatitis PAST SURGICAL HISTORY: Appendectomy MEDICATIONS: See below ALLERGIES: See below SOCIAL HISTORY: No illicit drug use. REVIEW OF SYSTEMS: CONSTITUTIONAL: Denies fever or chills. HEENT: Denies blurred vision, vision changes, or eye pain. Denies hemoptysis CARDIOVASCULAR: Denies chest pain or pressure. RESPIRATORY: No shortness of breath. GASTROINTESTINAL: See HPI for pertinent findings HEMATOLOGIC: Denies bleeding disorders. GENITOURINARY: Denies any blood in urine or increased urinary frequency. SKIN: Denies pruitis. Denies rash. PHYSICAL EXAM: VITAL SIGNS: Reviewed GENERAL: Well-developed in no acute distress. HEENT: Mild thrush noted on tongue ABDOMEN: Soft. Obese. Nondistended. Reducible incisional hernia. No discoloration. Mild tenderness palpation. NEUROLOGIC: Alert and oriented. Cranial nerves II through XII grossly intact. LABORATORY DATA: WBC 15.28-14.42 Hgb 13.5 platelets 215 Sodium 134 potassium is 5.0 creatinine 0.8 IMAGING: ASSESSMENT: 1. Dysphagia 2. Oral thrush PLAN: -Patient scheduled for EGD on Monday with Dr. Arias -Consult speech therapy for swallow eval and diet recommendations -Upper GI ordered for further evaluation of dysphagia -Continue treatment for oral thrush Physician Tire Mold Tester note has been reviewed by physician. Signing provider agrees with the documented findings, assessment, and plan of care. Past Medical History Past Medical History: Atrial Fibrillation, Hypertension, Pulmonary Embolus (PE), Thyroid Disorder Additional Past Medical History / Comment(s): Pt states she has an arrythmia (afib), pancreatitis and chronic back and neck pain. Herniated Disk History of Any Multi-Drug Resistant Organisms: CRE, Other MDRO Year Discovered:: 07/16/21 MDRO Source:: URINE Past Surgical History: Appendectomy, Orthopedic Surgery Additional Past Surgical History / Comment(s): titanium wrist right, abdominal exploratory open appy, left elbow pin from falling out of tree Past Anesthesia/Blood Transfusion Reactions: No Reported Reaction Past Psychological History: Anxiety, Depression, PTSD Smoking Status: Current every day smoker Past Alcohol Use History: Heavy Past Drug Use History: None Reported - Past Family History Father History Unknown: Yes Family Medical History: Osteoarthritis (OA) Medications and Allergies Home Medications Medication Instructions Recorded Confirmed Type Nicotine 21Mg/24Hr Patch [Habitrol] 1 patch TRANSDERM DAILY #42 patch 01/18/24 01/08/25 Rx Ferrous Sulfate [Iron (65 MG 325 mg PO DAILY 12/22/24 01/08/25 History Elemental)] Bumetanide [Bumex] 1 mg PO DAILY #30 tablet 12/29/24 01/08/25 Rx Gabapentin [Neurontin] 300 mg PO TID 3 Days #90 cap 12/29/24 01/08/25 Rx LORazepam [Ativan] 0.5 mg PO BID PRN #20 tab 12/29/24 01/08/25 Rx Levothyroxine Sodium [Euthyrox] 75 mcg PO DAILY #30 tablet 12/29/24 01/08/25 Rx Metoprolol Tartrate [Lopressor] 50 mg PO BID #60 tab 12/29/24 01/08/25 Rx Pantoprazole [Protonix] 40 mg PO BID #60 tab 12/29/24 01/08/25 Rx Prazosin HCl [Minipress] 2 mg PO HS #30 capsule 12/29/24 01/08/25 Rx Sertraline [Zoloft] 100 mg PO BID #60 tab 12/29/24 01/08/25 Rx traZODone HCL [Desyrel] 50 mg PO TID PRN #90 tab 12/29/24 01/08/25 Rx Budesonide/Formoterol Fumarate 2 puff INHALATION RT-BID 01/08/25 01/08/25 History [Symbicort 160-4.5 Mcg Inhaler] HYDROcodone/APAP 7.5-325MG [[place] 1 tab PO Q12H 01/08/25 01/08/25 History 7.5-325] Potassium Citrate [Urocit-K ER] 15 meq PO PC-BID 01/08/25 01/08/25 History Umeclidinium [place] [[place]cr[place] 1 puff INHALATION RT-DAILY 01/08/25 01/08/25 History Ellipta] Allergies Allergy/AdvReac Type Severity Reaction Status Date / Time Penicillins Allergy Unknown Unknown Verified 01/08/25 09:42 Childhood Surgical - Exam Vital Signs Temp Pulse Resp BP Pulse Ox 98.5 F 82 18 145/93 96 01/07/25 16:37 01/07/25 16:37 01/07/25 16:37 01/07/25 16:37 01/07/25 16:37 Results - Labs 01/24/25 03:34 01/24/25 03:34 Abnormal Lab Results - Last 24 Hours (Table) 01/24/25 01/24/25 Range/Units 03:34 03:34 WBC 14.42 H (4.50-10.00) X 10*3/uL MCV 101.7 H (80.0-97.0) FL MCH 32.7 H (27.0-32.0) pg RDW 16.6 H (11.5-14.5) % Immature Gran # 0.13 H (0.00-0.04) X 10*3/uL Neutrophils # 13.05 H (1.80-7.70) X 10*3/uL Eosinophils # 0 L (0.04-0.35) X 10*3/uL Sodium 134 L (135-145) mmol/L BUN 35.7 H (9.0-27.0) mg/dL BUN/Creatinine Ratio 44.62 H (12.00-20.00) Ratio Glucose 285 H (70-110) mg/dL AST 44 H (13-35) U/L ALT 86 H (8-44) U/L Diabetes panel 01/24/25 Range/Units 03:34 Sodium 134 L (135-145) mmol/L Potassium 5.0 (3.5-5.5) mmol/L Chloride 96 (96-109) mmol/L Carbon Dioxide 26.5 (21.6-31.8) mmol/L BUN 35.7 H (9.0-27.0) mg/dL Creatinine 0.8 (0.6-1.5) mg/dL Glucose 285 H (70-110) mg/dL Calcium 9.5 (8.7-10.3) mg/dL AST 44 H (13-35) U/L ALT 86 H (8-44) U/L Alkaline Phosphatase 95 (41-126) U/L Total Protein 6.5 (6.2-8.2) g/dL Albumin 4.2 (3.8-4.9) g/dL Calcium panel 01/24/25 Range/Units 03:34 Calcium 9.5 (8.7-10.3) mg/dL Albumin 4.2 (3.8-4.9) g/dL Pituitary panel 01/24/25 Range/Units 03:34 Sodium 134 L (135-145) mmol/L Potassium 5.0 (3.5-5.5) mmol/L Chloride 96 (96-109) mmol/L Carbon Dioxide 26.5 (21.6-31.8) mmol/L BUN 35.7 H (9.0-27.0) mg/dL Creatinine 0.8 (0.6-1.5) mg/dL Glucose 285 H (70-110) mg/dL Calcium 9.5 (8.7-10.3) mg/dL Adrenal panel 01/24/25 Range/Units 03:34 Sodium 134 L (135-145) mmol/L Potassium 5.0 (3.5-5.5) mmol/L Chloride 96 (96-109) mmol/L Carbon Dioxide 26.5 (21.6-31.8) mmol/L BUN 35.7 H (9.0-27.0) mg/dL Creatinine 0.8 (0.6-1.5) mg/dL Glucose 285 H (70-110) mg/dL Calcium 9.5 (8.7-10.3) mg/dL Total Bilirubin 0.3 (0.3-1.2) mg/dL AST 44 H (13-35) U/L ALT 86 H (8-44) U/L Alkaline Phosphatase 95 (41-126) U/L Total Protein 6.5 (6.2-8.2) g/dL Albumin 4.2 (3.8-4.9) g/dL
--- NOTE | 2025-01-24 14:58 | P.PN ---
Subjective Progress Note Date: 01/24/25 Principal diagnosis: Reason for follow-up is right foot cellulitis Patient is a 49-year-old female with a past medical history significant for atrial fibrillation hypertension PE hypothyroidism recent admission to the hospital treated for pneumonia now presenting to the hospital concerning of bilateral big toe discoloration more on the right side with associated pain CT angiogram did not show any evidence of vascular occlusion vascular surgery is following the patient ID consulted because of ascending lymphangitis on the right side concerning for cellulitis. On today's evaluation that is 01/24/2025, the patient continues to be afebrile, the patient is on room air and breathing slightly comfortably, the Pt denies having any chest pain or any worsening cough, the patient denies having any abdominal pain no vomiting or any diarrhea still complaining of difficulty swallowing and discoloration of the toes. Patient white count is 14.42, creatinine 0.8 Objective - Vital Signs Vital signs: Vital Signs Temp 97.7 F 01/24/25 07:35 Pulse 63 01/24/25 07:35 Resp 17 01/24/25 08:00 BP 122/84 01/24/25 07:35 Pulse Ox 96 01/24/25 07:35 FiO2 21 01/17/25 07:56 Intake & Output 01/23/25 01/24/25 01/24/25 18:59 06:59 18:59 Intake Total 1017 118 Balance 1017 118 Intake: IV 575 Oral 442 118 Other: Voiding Method Toilet Toilet # Voids 1 2 - Exam GENERAL DESCRIPTION: Middle-age female lying in bed in no distress RESPIRATORY SYSTEM: Unlabored breathing , decreased breath sounds at bases HEART: S1 S2 regular rate and rhythm , ABDOMEN: Soft , no tenderness EXTREMITIES: Discoloration of the left big toe as well as the left second and third toe no purulent drainage - Labs CBC & Chem 7: 01/24/25 03:34 01/24/25 03:34 Labs: Abnormal Lab Results - Last 24 Hours (Table) 01/24/25 01/24/25 Range/Units 03:34 03:34 WBC 14.42 H (4.50-10.00) X 10*3/uL MCV 101.7 H (80.0-97.0) FL MCH 32.7 H (27.0-32.0) pg RDW 16.6 H (11.5-14.5) % Immature Gran # 0.13 H (0.00-0.04) X 10*3/uL Neutrophils # 13.05 H (1.80-7.70) X 10*3/uL Eosinophils # 0 L (0.04-0.35) X 10*3/uL Sodium 134 L (135-145) mmol/L BUN 35.7 H (9.0-27.0) mg/dL BUN/Creatinine Ratio 44.62 H (12.00-20.00) Ratio Glucose 285 H (70-110) mg/dL AST 44 H (13-35) U/L ALT 86 H (8-44) U/L Assessment and Plan (1) Cellulitis of right foot Current Visit: Yes Status: Acute Priority: High Code(s): L03.115 - CELLULITIS OF RIGHT LOWER LIMB SNOMED Code(s): 42483711290719796 (2) Thrush Current Visit: Yes Status: Acute Code(s): B37.0 - CANDIDAL STOMATITIS SNOMED Code(s): 11421920 (3) Tracheobronchitis Current Visit: No Status: Acute Code(s): J40 - BRONCHITIS, NOT SPECIFIED ACUTE OR CHRONIC SNOMED Code(s): 49718398 Plan: 1patient presented to hospital with bilateral big toe discoloration and pain in this patient who did have CT did not show any peripheral arterial disease with a question of possibly macrovascular versus Burger disease and is being followed by vascular surgery and now with concern for possible developing lymphangitis/cellulitis especially to the right foot area likely from gram- positive skin rodolfo. 2patient with a penicillin allergy that will limit the number of antibiotics safe to use. 3patient did have evidence of thrush and is complaining of persistent syndrome as well as some dysphagia concern for possible oropharyngeal candidiasis continue with Diflucan and nystatin swish and swallow surgery has been consulted for possible EGD because of persistent symptoms 4patient is afebrile, white count is trending down which is more likely due to steroids has received adequate IV cefepime switch her over to Ceftin and monitor clinical course closely Dictation was produced using [email or web address] dictation software. please excuse any grammatical, word or spelling errors. Time with Patient: Less than 30
[2025-01-24] MEDS: CEFDINIR 300 MG CAP PO SCH (20:04)
--- NOTE | 2025-01-25 08:29 | P.PN ---
Subjective Progress Note Date: 01/25/25 This a 49-year-old female who is scheduled for EGD on Monday. Patient has had some issues with dysphagia and reflux. On exam vital signs appear stable. Abdomen soft. Dysphagia reflux. Patient was scheduled for EGD on Monday. Objective - Vital Signs Vital signs: Vital Signs Temp 97.7 F 01/25/25 02:00 Pulse 65 01/25/25 02:00 Resp 17 01/25/25 02:00 BP 145/92 01/25/25 02:00 Pulse Ox 98 01/25/25 08:08 FiO2 21 01/17/25 07:56 Intake & Output 01/24/25 01/25/25 01/25/25 18:59 06:59 18:59 Other: Voiding Method Toilet Toilet # Voids 1 3 - Labs CBC & Chem 7: 01/24/25 03:34 01/24/25 03:34 Labs: Abnormal Lab Results - Last 24 Hours (Table) 01/24/25 Range/Units 03:34 WBC 14.42 H (4.50-10.00) X 10*3/uL MCV 101.7 H (80.0-97.0) FL MCH 32.7 H (27.0-32.0) pg RDW 16.6 H (11.5-14.5) % Immature Gran # 0.13 H (0.00-0.04) X 10*3/uL Neutrophils # 13.05 H (1.80-7.70) X 10*3/uL Eosinophils # 0 L (0.04-0.35) X 10*3/uL
[2025-01-25] MEDS: methylPREDNISolone SOD SUCCI 40 MG/ML 1 ML VIAL IV SCH (08:40)
[2025-01-25 09:47] LABS: BUN/Creat Ratio 43.88 Ratio (12.00-20.00); Blood Urea Nitrogen 35.1 mg/dL (9.0-27.0); Calcium 9.8 mg/dL (8.7-10.3); Carbon Dioxide 28.6 mmol/L (21.6-31.8); Chloride 99 mmol/L (96-109); Glucose 137 mg/dL (70-110); Potassium 4.8 mmol/L (3.5-5.5); Sodium 140 mmol/L (135-145)
--- NOTE | 2025-01-25 14:08 | PN ---
PROGRESS NOTE HISTORY OF PRESENT ILLNESS: A 49-year-old white female, vasculitis type syndrome. The patient continues to have gangrene to the toe, this was vasculitis gangrene , 2 on the left, 1st, 2nd, 3rd toe, 2 on the right great toe with 3rd toe gangrenous and necrotic tissue fallen off open to the air. Dr. Tuttle has seen her for infection. The wounds appear clear and red. It is possible she will need amputation down the road to the 4 toes. Tried to transfer to [facility] for a second opinion, but doctor lucina already has seen her here at the hospital prior to transferring her to [place]. They refused transfer as they said we could do amputation here. There is no further treatment for Buerger's disease except what we are doing, and there is nothing more he could do than a transfer, that we can do here. The patient has had [facility] transfer tried and they refused to take to transfer. Also discussed the case with the patient. She had another opinion also from vascular doctor, from Dr. Dan and she will continue current treatment. Also we started her on compression hose. PHYSICAL EXAMINATION: PSYCH: Fair mood and affect. PULMONARY: Fairly clear. GI: Soft. She has hypertension early in the morning. I gave her oxygen and breathing treatments. ASSESSMENT: Recent pneumonia, chronic obstructive pulmonary disease, alcohol dependence, obesity, vasculitis, Buerger's syndrome. No evidence of any blockage in the arteries that can be fixed on arteriogram by Dr. Irizarry of the legs and CT of the abdomen was negative. Echocardiogram, and Cardiology could not find anything that they could fix either as a part of embolic phenomenon. Prognosis is severely guarded. She probably will need some amputation down the road. This is discussed with her. I told her other options to be discharged home and drive down to [facility] and go to the emergency room today. Discharge for 4th opinion if she wants one. sought out many different advices from many people. Hematology also saw her. Pulmonary has seen her for her breathing. Prognosis guarded. MMODL / IJN: [id number] /
--- NOTE | 2025-01-25 16:10 | P.PN ---
Subjective Progress Note Date: 01/25/25 Principal diagnosis: Reason for follow-up is right foot cellulitis Patient is a 49-year-old female with a past medical history significant for atrial fibrillation hypertension PE hypothyroidism recent admission to the hospital treated for pneumonia now presenting to the hospital concerning of bilateral big toe discoloration more on the right side with associated pain CT angiogram did not show any evidence of vascular occlusion vascular surgery is following the patient ID consulted because of ascending lymphangitis on the right side concerning for cellulitis. On today's evaluation that is 01/25/2025, patient did not have any fever and denies any chills, patient is breathing comfortably on room air, patient with no chest pain or any worsening cough patient did not have any abdominal pain nausea vomiting or any loose stools, denies any worsening pain to the groin area. Patient did have a creatinine 0.8 no CBC was done today Objective - Vital Signs Vital signs: Vital Signs Temp 98.3 F 01/25/25 14:00 Pulse 102 H 01/25/25 14:00 Resp 19 01/25/25 14:00 BP 120/81 01/25/25 14:00 Pulse Ox 96 01/25/25 14:00 FiO2 21 01/17/25 07:56 Intake & Output 01/24/25 01/25/25 01/25/25 18:59 06:59 18:59 Intake Total 236 Balance 236 Intake: Oral 236 Other: Voiding Method Toilet Toilet Toilet # Voids 1 3 - Exam GENERAL DESCRIPTION: Middle-age female lying in bed in no distress RESPIRATORY SYSTEM: Unlabored breathing , decreased breath sounds at bases HEART: S1 S2 regular rate and rhythm , ABDOMEN: Soft , no tenderness EXTREMITIES: Discoloration of the left big toe as well as the left second and t hird toe no purulent drainage - Labs CBC & Chem 7: 01/24/25 03:34 01/25/25 06:18 Labs: Abnormal Lab Results - Last 24 Hours (Table) 01/25/25 Range/Units 06:18 Anion Gap 12.40 H (4.00-12.00) mmol/L BUN 35.1 H (9.0-27.0) mg/dL BUN/Creatinine Ratio 43.88 H (12.00-20.00) Ratio Glucose 137 H (70-110) mg/dL Assessment and Plan (1) Cellulitis of right foot Current Visit: Yes Status: Acute Priority: High Code(s): L03.115 - CELLULITIS OF RIGHT LOWER LIMB SNOMED Code(s): 89528341326813949 (2) Thrush Current Visit: Yes Status: Acute Code(s): B37.0 - CANDIDAL STOMATITIS SNOMED Code(s): 63190502 (3) Tracheobronchitis Current Visit: No Status: Acute Code(s): J40 - BRONCHITIS, NOT SPECIFIED ACUTE OR CHRONIC SNOMED Code(s): 85483919 Plan: 1patient presented to hospital with bilateral big toe discoloration and pain in this patient who did have CT did not show any peripheral arterial disease with a question of possibly macrovascular versus Burger disease and is being followed by vascular surgery and now with concern for possible developing lymphangitis/cellulitis especially to the right foot area likely from gram- positive skin rodolfo. 2patient with a penicillin allergy that will limit the number of antibiotics safe to use. 3patient did have evidence of thrush and is complaining of persistent syndrome as well as some dysphagia concern for possible oropharyngeal candidiasis continue with Diflucan and nystatin swish and swallow surgery has been consulted for possible EGD because of persistent symptoms which has been scheduled for Monday 4patient is afebrile, white count is trending down which is more likely due to steroids has received adequate IV cefepime currently on oral Omnicef to continue question concern answered Dictation was produced using [employer] dictation software. please excuse any grammatical, word or spelling errors. Time with Patient: Less than 30
--- NOTE | 2025-01-26 11:06 | P.PN ---
Subjective Progress Note Date: 01/26/25 Patient remained stable. She is scheduled for EGD in the a.m. Objective - Vital Signs Vital signs: Vital Signs Temp 98.3 F 01/26/25 07:55 Pulse 75 01/26/25 07:55 Resp 16 01/26/25 07:55 BP 134/97 01/26/25 07:55 Pulse Ox 95 01/26/25 07:55 FiO2 21 01/17/25 07:56 Intake & Output 01/25/25 01/26/25 01/26/25 18:59 06:59 18:59 Intake Total 236 591 Balance 236 591 Intake: Oral 236 591 Other: Voiding Method Toilet # Voids 2 - Labs CBC & Chem 7: 01/24/25 03:34 01/25/25 06:18
--- NOTE | 2025-01-26 15:56 | PN ---
PROGRESS NOTE A 49-year-old white female with peripheral arterial disease and ischemia to the 4 toes on seen by multiple physicians and specialists, tried to transfer three times, but denials from 3 different hospitals, there is nothing that can be done. She needs amputation of her toes. She will have to do it up here. Blood pressure 134/97, O2 of 95 on room air, temperature 98.3, pulse 75, respiratory rate 16. White count is still elevated at 14.42, sodium 140, potassium 4.8. Sugars 100s to 200s. Rheumatoid workup is negative. Compression stockings were given by Vascular to wear. Infectious Disease saw the patient for cellulitis of the foot, thrush, and tracheobronchitis. The patient wants an EGD done prior to going home. She is on Omnicef. White count, leukocytosis secondary to steroids Infectious Disease, IV cefepime switched to oral Omnicef for an EGD. We will do EGD tomorrow. OBJECTIVE: VITAL SIGNS: Blood pressure 134/97 as mentioned, temperature 98.3. LUNGS: Mostly clear. ENDOCRINE: Obese. VASCULAR: Unchanged. GI: Soft. Blood pressure is under better control, 120s to 130s over 80s to 90s. Continue current treatment. Possible discharge home soon. MMODL / IJN: [id number] /
--- NOTE | 2025-01-26 16:37 | P.PN ---
Subjective Progress Note Date: 01/26/25 Principal diagnosis: Reason for follow-up is right foot cellulitis Patient is a 49-year-old female with a past medical history significant for atrial fibrillation hypertension PE hypothyroidism recent admission to the hospital treated for pneumonia now presenting to the hospital concerning of bilateral big toe discoloration more on the right side with associated pain CT angiogram did not show any evidence of vascular occlusion vascular surgery is following the patient ID consulted because of ascending lymphangitis on the right side concerning for cellulitis. On today's evaluation that is 01/26/2025, Patient is afebrile patient is currently on room air and denies having any shortness of breath, the patient denies any chest pain or any worsening cough, the patient denies any nausea vomiting did not have any abdominal pain and no diarrhea, denies any worsening pain to the dorsal foot. No new lab has been obtained today Objective - Vital Signs Vital signs: Vital Signs Temp 98.3 F 01/26/25 14:00 Pulse 67 01/26/25 14:00 Resp 17 01/26/25 14:00 BP 112/80 01/26/25 14:00 Pulse Ox 95 01/26/25 14:00 FiO2 21 01/17/25 07:56 Intake & Output 01/25/25 01/26/25 01/26/25 18:59 06:59 18:59 Intake Total 236 591 236 Balance 236 591 236 Intake: Oral 236 591 236 Other: Voiding Method Toilet Toilet # Voids 2 - Exam GENERAL DESCRIPTION: Middle-age female lying in bed in no distress RESPIRATORY SYSTEM: Unlabored breathing , decreased breath sounds at bases HEART: S1 S2 regular rate and rhythm , ABDOMEN: Soft , no tenderness EXTREMITIES: Discoloration of the left big toe as well as the left second and third toe no purulent drainage - Labs CBC & Chem 7: 01/24/25 03:34 01/25/25 06:18 Assessment and Plan (1) Cellulitis of right foot Current Visit: Yes Status: Acute Priority: High Code(s): L03.115 - CELLULITIS OF RIGHT LOWER LIMB SNOMED Code(s): 74488177993810115 (2) Thrush Current Visit: Yes Status: Acute Code(s): B37.0 - CANDIDAL STOMATITIS SNOMED Code(s): 94956314 (3) Tracheobronchitis Current Visit: No Status: Acute Code(s): J40 - BRONCHITIS, NOT SPECIFIED ACUTE OR CHRONIC SNOMED Code(s): 78768223 Plan: 1patient presented to hospital with bilateral big toe discoloration and pain in this patient who did have CT did not show any peripheral arterial disease with a question of possibly macrovascular versus Burger disease and is being followed by vascular surgery and now with concern for possible developing lymphangitis/cellulitis especially to the right foot area likely from gram- positive skin rodolfo. 2patient with a penicillin allergy that will limit the number of antibiotics safe to use. 3patient did have evidence of thrush and is complaining of persistent syndrome as well as some dysphagia concern for possible oropharyngeal candidiasis continue with Diflucan and nystatin swish and swallow surgery has been consulted for possible EGD because of persistent symptoms which has been scheduled for tomorrow 4patient is afebrile, patient is currently being treated with oral Omnicef and no worsening of any cellulitis or discoloration question concern answered. Dictation was produced using [employer] software. please excuse any grammatical, word or spelling errors. Time with Patient: Less than 30
[2025-01-27 05:36] LABS: Anisocytosis Slight; Basophils % (A) 0 %; Eosinophils % (A) 0 %; HCT 42.6 % (34.0-46.0); HGB 13.3 gm/dL (11.4-16.0); Lymphocytes # (A) 2.1 k/uL (1.0-4.8); Lymphocytes % (A) 14 %; MCH 32.1 pg (25.0-35.0); MCHC 31.4 g/dL (31.0-37.0); MCV 102.3 fL (80.0-100.0); Macrocytosis Moderate; Mean Platelet Volume 8.1; Monocytes # (A) 0.5 k/uL (0-1.0); Monocytes % (A) 4 %; Neutrophils # (A) 11.8 k/uL (1.3-7.7); Neutrophils % (A) 81 %; Platelet Count 171 k/uL (150-450); RBC 4.16 m/uL (3.80-5.40); RDW 16.6 % (11.5-15.5); WBC 14.6 k/uL (3.8-10.6)
[2025-01-27 06:02] LABS: ALT 82 U/L (4-34); African American GFR (CKD) >90 (>60 ml/min/1.73 sqM); Albumin/Globulin Ratio 1.4; Anion Gap 8 mmol/L; Blood Urea Nitrogen 44 mg/dL (7-17); Calcium 9.9 mg/dL (8.4-10.2); Carbon Dioxide 32 mmol/L (22-30); Chloride 94 mmol/L (98-107); Glucose 116 mg/dL (74-99); Non-African American GFR(CKD) >90 (>60 ml/min/1.73 sqM); Sodium 134 mmol/L (137-145); Total Bilirubin 0.8 mg/dL (0.2-1.3)
[2025-01-27 06:17] LABS: AST 45 U/L (14-36); Albumin 4.2 g/dL (3.5-5.0); Alkaline Phosphatase 61 U/L (38-126); Total Protein 7.2 g/dL (6.3-8.2)
--- NOTE | 2025-01-27 10:20 | P.PN ---
Subjective Progress Note Date: 01/27/25 SURGICAL PROGRESS NOTE CHIEF COMPLAINT: Ischemic changes of the toes HISTORY OF PRESENT ILLNESS: Surgical service following in regards to dysphagia. Patient reports her food was sticking in her throat over the weekend. She is scheduled for EGD today. Vital stable. PHYSICAL EXAM: VITAL SIGNS: Reviewed. GENERAL: Well-developed in no acute distress. ABDOMEN: Soft. Nondistended. Nontender. NEUROLOGIC: Alert and oriented. Cranial nerves II through XII grossly intact. ASSESSMENT: 1. Dysphagia PLAN: -Patient scheduled for EGD today with Dr. Arias Physician [employer] Manager note has been reviewed by physician. Signing provider agrees with the documented findings, assessment, and plan of care. Objective - Vital Signs Vital signs: Vital Signs Temp 97.4 F L 01/27/25 07:26 Pulse 65 01/27/25 07:26 Resp 15 01/27/25 07:26 BP 140/96 01/27/25 07:26 Pulse Ox 96 01/27/25 07:26 FiO2 21 01/17/25 07:56 Intake & Output 01/26/25 01/27/25 01/27/25 18:59 06:59 18:59 Intake Total 236 827 Balance 236 827 Intake: Oral 236 827 Other: Voiding Method Toilet Toilet # Voids 3 - Labs CBC & Chem 7: 01/27/25 04:45 01/27/25 04:45 Labs: Abnormal Lab Results - Last 24 Hours (Table) 01/27/25 01/27/25 Range/Units 04:45 04:45 WBC 14.6 H (3.8-10.6) k/uL MCV 102.3 H (80.0-100.0) fL RDW 16.6 H (11.5-15.5) % Neutrophils # 11.8 H (1.3-7.7) k/uL Sodium 134 L (137-145) mmol/L Chloride 94 L (98-107) mmol/L Carbon Dioxide 32 H (22-30) mmol/L BUN 44 H (7-17) mg/dL Glucose 116 H (74-99) mg/dL AST 45 H (14-36) U/L ALT 82 H (4-34) U/L
[2025-01-27] MEDS ORDERED: LIDOCAINE 1% INJ 10MG/ML (20 ML MDV) ONE (11:39)
[2025-01-27] MEDS ORDERED: PROPOFOL 10 MG/ML 20 ML VIAL IV ONE (11:39)
[2025-01-27] MEDS: SODIUM CHLORIDE 0.9% 500 ML 500 ML IV ONE (11:43)
--- NOTE | 2025-01-27 12:01 | P.OP ---
Date of Procedure: 01/27/25 Preoperative Diagnosis: Dysphagia Postoperative Diagnosis: Gastritis Procedure(s) Performed: EGD Anesthesia: MAC Surgeon: Mich Arias Pathology: other (Antrum) Condition: stable Disposition: PACU Description of Procedure: Patient was placed on the endoscopy table in the lateral position. She received IV sedation. The Gastroflux oropharynx passed in the esophagus and stomach. Scope was in place through the pylorus. The first and second portion of the duodenum appeared normal. The scope was brought back to the antrum this appeared minimal F inflamed a biopsy performed. The scope was then retroflexed and the M remainder of the stomach appeared normal. The GE junction was at 40 cm. The distal esophagus appeared normal. Proximal esophagus appeared normal. Scope withdrawn for the patient.
--- NOTE | 2025-01-27 16:56 | P.PN ---
Subjective Progress Note Date: 01/27/25 Principal diagnosis: APL ab work up In f/u today pt is awaiting EGD for dysphagia. No bleeding to report, she is on baby asa and DVT prophylaxis Objective - Vital Signs Vital signs: Vital Signs Temp 97.6 F 01/27/25 14:00 Pulse 58 L 01/27/25 14:00 Resp 14 01/27/25 14:00 BP 146/90 01/27/25 14:00 Pulse Ox 98 01/27/25 14:00 FiO2 21 01/17/25 07:56 Intake & Output 01/26/25 01/27/25 01/27/25 18:59 06:59 18:59 Intake Total 236 827 200 Balance 236 827 200 Intake: IV 200 Oral 236 827 Other: Voiding Method Toilet Toilet # Voids 3 - Constitutional General appearance: Present: cooperative, no acute distress, obese - EENT Eyes: Present: anicteric sclerae, EOMI ENT: Present: hearing grossly normal - Respiratory Details: resp unlabored at rest - Cardiovascular Details: no blood flow to rt great toe-it is black - Peripheral edema leg Peripheral Edema: bilateral: 1+ - Integumentary Integumentary Comment(s): multiple bruises on upper extremities - Neurologic Neurologic: Present: CNII-XII intact - Musculoskeletal Musculoskeletal: Present: strength equal bilaterally - Psychiatric Psychiatric: Present: A&O x's 3, appropriate affect, intact judgment & insight - Labs CBC & Chem 7: 01/27/25 04:45 01/27/25 04:45 Labs: Abnormal Lab Results - Last 24 Hours (Table) 01/27/25 01/27/25 Range/Units 04:45 04:45 WBC 14.6 H (3.8-10.6) k/uL MCV 102.3 H (80.0-100.0) fL RDW 16.6 H (11.5-15.5) % Neutrophils # 11.8 H (1.3-7.7) k/uL Sodium 134 L (137-145) mmol/L Chloride 94 L (98-107) mmol/L Carbon Dioxide 32 H (22-30) mmol/L BUN 44 H (7-17) mg/dL Glucose 116 H (74-99) mg/dL AST 45 H (14-36) U/L ALT 82 H (4-34) U/L Assessment and Plan (1) Buergers disease Current Visit: Yes Status: Acute Priority: High Code(s): I73.1 - THROMBOANGIITIS OBLITERANS [BUERGER'S DISEASE] SNOMED Code(s): 11869229 Plan: Possible Buerger's disease -APLs ab are negative -Complete hypercoaguable work up out pt -Continue aspirin as prescribed -Highly recommend smoking cessation Doctor attests: I performed a history and physical examination of this patient, developed impression and plan of care. Discussed with dictator. I agree with dictators note, documented as a scribe.
--- NOTE | 2025-01-27 17:49 | P.PN ---
Subjective Progress Note Date: 01/27/25 Principal diagnosis: Reason for follow-up is right foot cellulitis Patient is a 49-year-old female with a past medical history significant for atrial fibrillation hypertension PE hypothyroidism recent admission to the hospital treated for pneumonia now presenting to the hospital concerning of bilateral big toe discoloration more on the right side with associated pain CT angiogram did not show any evidence of vascular occlusion vascular surgery is following the patient ID consulted because of ascending lymphangitis on the right side concerning for cellulitis. On today's evaluation that is 01/27/2025, patient has been afebrile, patient is breathing comfortably and is currently on room air, patient denies having any significant cough no chest pain, patient denies nausea vomiting or diarrhea and no abdominal pain, denies any worsening pain to the toe. Patient white count is 14.6, creatinine 0.66 Objective - Vital Signs Vital signs: Vital Signs Temp 97.4 F L 01/27/25 07:26 Pulse 65 01/27/25 07:26 Resp 15 01/27/25 07:26 BP 140/96 01/27/25 07:26 Pulse Ox 96 01/27/25 07:26 FiO2 21 01/17/25 07:56 Intake & Output 01/26/25 01/27/25 01/27/25 18:59 06:59 18:59 Intake Total 236 827 200 Balance 236 827 200 Intake: IV 200 Oral 236 827 Other: Voiding Method Toilet Toilet # Voids 3 - Exam GENERAL DESCRIPTION: Middle-age female lying in bed in no distress RESPIRATORY SYSTEM: Unlabored breathing , decreased breath sounds at bases HEART: S1 S2 regular rate and rhythm , ABDOMEN: Soft , no tenderness EXTREMITIES: Discoloration of the left big toe as well as the left second and third toe no purulent drainage - Labs CBC & Chem 7: 01/27/25 04:45 01/27/25 04:45 Labs: Abnormal Lab Results - Last 24 Hours (Table) 01/27/25 01/27/25 Range/Units 04:45 04:45 WBC 14.6 H (3.8-10.6) k/uL MCV 102.3 H (80.0-100.0) fL RDW 16.6 H (11.5-15.5) % Neutrophils # 11.8 H (1.3-7.7) k/uL Sodium 134 L (137-145) mmol/L Chloride 94 L (98-107) mmol/L Carbon Dioxide 32 H (22-30) mmol/L BUN 44 H (7-17) mg/dL Glucose 116 H (74-99) mg/dL AST 45 H (14-36) U/L ALT 82 H (4-34) U/L Assessment and Plan (1) Cellulitis of right foot Current Visit: Yes Status: Acute Priority: High Code(s): L03.115 - CELLULITIS OF RIGHT LOWER LIMB SNOMED Code(s): 94885530574476775 (2) Thrush Current Visit: Yes Status: Acute Code(s): B37.0 - CANDIDAL STOMATITIS SNOMED Code(s): 43551896 (3) Tracheobronchitis Current Visit: No Status: Acute Code(s): J40 - BRONCHITIS, NOT SPECIFIED ACUTE OR CHRONIC SNOMED Code(s): 85380732 Plan: 1patient presented to hospital with bilateral big toe discoloration and pain in this patient who did have CT did not show any peripheral arterial disease with a question of possibly macrovascular versus Burger disease and is being followed by vascular surgery and now with concern for possible developing lymphan gitis/cellulitis especially to the right foot area likely from gram-positive skin rodolfo. 2patient with a penicillin allergy that will limit the number of antibiotics safe to use. 3patient did have evidence of thrush and is complaining of persistent syndrome as well as some dysphagia concern for possible oropharyngeal candidiasis continue with Diflucan and nystatin swish and swallow patient is status post EGD with evidence of gastritis 4patient is afebrile, patient is currently being treated with oral Omnicef, multiple question concern answered. Dictation was produced using [employer] software. please excuse any grammatical, word or spelling errors. Time with Patient: Less than 30
[2025-01-27] MEDS: BUMETANIDE 0.25 MG/ML 4 ML VIAL IVP STA (18:08)
[2025-01-27] MEDS: BUMETANIDE 1 MG TAB PO SCH (18:08)
--- NOTE | 2025-01-27 23:23 | PN ---
PROGRESS NOTE Continues with vasculitis. She has 2 toes on the right foot and 2 on the left foot, distal black tips of the toes. One of them on the right foot, the great toe is completely black. The wounds are healed where the distal tip and the nail came off. There is no further bleeding and redness. Dr. Tuttle said she can go home on oral antibiotics. She is reluctant to go home. Her legs had worsening swelling and I am going to give her oral Bumex to 2 mg daily, given her a dose now. She is to wear oxygen at night. Her breathing treatments. Her blood pressure is a little bit elevated tonight. OBJECTIVE: CARDIOVASCULAR: S1, S2. LUNGS: Fairly clear. PSYCHIATRIC: She appears to have poor mood and affect. NEUROLOGIC: Cranial nerves intact. EXTREMITIES: She has 2 to 3+ edema in the lower legs. ABDOMEN: Distended due to obesity. VASCULAR: She has vasculitis versus gangrene of the distal extremities. Progression of disease per multiple specialists. Continue with hypertension control. Her pneumonia has improved. Cellulitis of the feet has improved. White count is elevated a little bit at 14,000 due to steroids per Infectious Disease. Get discharge planning involved. Try to get her home soon. If further necrosis occurs, she will have to come in and get amputation. I tried to transfer her to [facility], [facility], and [facility] with little success. Vascular Surgery had consultants here and the people on the phone said there is nothing they can do for her. They reviewed all the testing in the past, said it has been done. Prognosis guarded. Continue on current treatments. Avoid alcohol. Increase diuresis. Compression stockings to the lower legs that have been used every 15 minutes. Due to tightness in her legs, she is using it on and off 15 minutes at a time. Prognosis is guarded. Follow up with Vascular for amputation down the road. She may be discharged and go [facility], which I told her to do if she has any more concerns. I also talked to multiple vascular surgeons. Prognosis is guarded. MMODL / IJN: [id number] /
[2025-01-28 09:36] LABS: Basophils # (A) 0.02 X 10*3/uL (0.00-0.10); Basophils % (A) 0.1 %; Eosinophils # (A) 0.02 X 10*3/uL (0.04-0.35); Eosinophils % (A) 0.1 %; HCT 43.5 % (37.2-46.3); HGB 14.1 g/dL (12.0-15.0); Lymphocytes # (A) 2.59 X 10*3/uL (0.90-5.00); Lymphocytes % (A) 18.6 %; MCH 32.3 pg (27.0-32.0); MCHC 32.4 g/dL (32.0-37.0); MCV 99.5 FL (80.0-97.0); Mean Platelet Volume 11.5 FL (9.5-12.2); Monocytes # (A) 0.76 X 10*3/uL (0.20-1.00); Monocytes % (A) 5.5 %; NRBC Per 100 WBC 0 X 10*3/uL (0.00-0.01); Neutrophils # (A) 10.43 X 10*3/uL (1.80-7.70); Neutrophils % (A) 75.1 %; Platelet Count 166 X 10*3/uL (140-440); RBC 4.37 X 10*6/uL (4.10-5.20); RDW 16.6 % (11.5-14.5)
--- NOTE | 2025-01-28 11:13 | P.PN ---
Subjective Progress Note Date: 01/28/25 SURGICAL PROGRESS NOTE CHIEF COMPLAINT: Ischemic changes of the toes HISTORY OF PRESENT ILLNESS: Patient is status post EGD reporting gastritis. Patient eating breakfast. She does report some sticking over the food. She does reports she vomited yesterday evening. PHYSICAL EXAM: VITAL SIGNS: Reviewed. GENERAL: Well-developed in no acute distress. ABDOMEN: Soft. Nondistended. NEUROLOGIC: Alert and oriented. Cranial nerves II through XII grossly intact. ASSESSMENT: 1. Dysphagia status post EGD revealing gastritis 2. Chronic incarcerated incisional hernia PLAN: -Continue Protonix -Recommend outpatient repair of incisional hernia -Continue regular diet Physician Rice Drier note has been reviewed by physician. Signing provider agrees with the documented findings, assessment, and plan of care. Objective - Vital Signs Vital signs: Vital Signs Temp 97.7 F 01/28/25 07:35 Pulse 69 01/28/25 07:35 Resp 16 01/28/25 09:49 BP 115/78 01/28/25 07:35 Pulse Ox 97 01/28/25 07:35 FiO2 21 01/17/25 07:56 Intake & Output 01/27/25 01/28/25 01/28/25 18:59 06:59 18:59 Intake Total 200 Balance 200 Intake: IV 200 Other: Voiding Method Toilet Toilet # Voids 2 3 - Labs CBC & Chem 7: 01/28/25 03:58 01/27/25 04:45 Labs: Abnormal Lab Results - Last 24 Hours (Table) 01/28/25 Range/Units 03:58 WBC 13.90 H (4.50-10.00) X 10*3/uL MCV 99.5 H (80.0-97.0) FL MCH 32.3 H (27.0-32.0) pg RDW 16.6 H (11.5-14.5) % Immature Gran # 0.08 H (0.00-0.04) X 10*3/uL Neutrophils # 10.43 H (1.80-7.70) X 10*3/uL Eosinophils # 0.02 L (0.04-0.35) X 10*3/uL
--- NOTE | 2025-01-28 14:49 | P.PN ---
Subjective Progress Note Date: 01/28/25 Principal diagnosis: APL ab work up In f/u today pt is laying in bed, drowsy, falling asleep during our conversation. Objective - Vital Signs Vital signs: Vital Signs Temp 97.7 F 01/28/25 07:35 Pulse 69 01/28/25 07:35 Resp 16 01/28/25 09:49 BP 115/78 01/28/25 07:35 Pulse Ox 97 01/28/25 07:35 FiO2 21 01/17/25 07:56 Intake & Output 01/27/25 01/28/25 01/28/25 18:59 06:59 18:59 Intake Total 200 Balance 200 Intake: IV 200 Other: Voiding Method Toilet Toilet # Voids 2 3 - Constitutional General appearance: Present: no acute distress, obese - EENT Eyes: Present: anicteric sclerae - Respiratory Details: resp unlabored at rest - Cardiovascular Details: skin warm to touch - Psychiatric Psychiatric Comment(s): drowsy, falls asleep quickly once aroused - Labs CBC & Chem 7: 01/28/25 03:58 01/27/25 04:45 Labs: Abnormal Lab Results - Last 24 Hours (Table) 01/28/25 Range/Units 03:58 WBC 13.90 H (4.50-10.00) X 10*3/uL MCV 99.5 H (80.0-97.0) FL MCH 32.3 H (27.0-32.0) pg RDW 16.6 H (11.5-14.5) % Immature Gran # 0.08 H (0.00-0.04) X 10*3/uL Neutrophils # 10.43 H (1.80-7.70) X 10*3/uL Eosinophils # 0.02 L (0.04-0.35) X 10*3/uL Assessment and Plan (1) Buergers disease Current Visit: Yes Status: Acute Priority: High Code(s): I73.1 - THROMBOANGIITIS OBLITERANS [BUERGER'S DISEASE] SNOMED Code(s): 71234218 Plan: Possible Buerger's disease -APLs ab are negative -Complete hypercoaguable work up out pt-Rx given to RN for labs to be drawn after discharge, f/u appt in 6-8 weeks for results -Continue aspirin as prescribed -Highly recommend smoking cessation
[2025-01-28] MEDS: BUMETANIDE 0.25 MG/ML 4 ML VIAL IVP STA (18:42)
[2025-01-28] MEDS: ZOLPIDEM 5 MG TAB PO PRN (21:54)
[2025-01-28] MEDS: HYDROcodone/APAP 7.5-325MG 1 EACH TAB PO PRN (21:54)
--- NOTE | 2025-01-29 00:28 | PN ---
PROGRESS NOTE Buerger's disease, gangrene of the toes. She still has a large amount of slough and swelling. We are going to give her extra dose of IV Bumex today. Compression hose. She has been tired, but she says she has not slept here on days, so we are going to give her some for sleeping tonight. We are going to stop a lot of her IV pain medicine, switched to oral so she can get ambulating, get less lethargic, Ambien for insomnia, we will give her. OBJECTIVE: CARDIOVASCULAR: S1 and S2. LUNGS: Transmitted upper airway sounds. SKIN: She has looks like dry gangrene, ischemia to the toes 2 on the right, 2 on the left, unchanged. HEMATOLOGY: Negative Homans. PSYCHIATRIC: Fair mood and affect. VITAL SIGNS: Temperature 97.9, pulse 50s to 60s, blood pressure 116 to 120s over 70s to 80s, O2 95 on 2 L. Due to abdominal swelling third-spacing edema, we are going to get an ultrasound the abdomen. We are going to order the ultrasound. Prognosis is guarded. Please see further orders. MMODL / IJN: [id number] /
[2025-01-29 05:45] LABS: ALT 79 U/L (4-34); AST 54 U/L (14-36); African American GFR (CKD) >90 (>60 ml/min/1.73 sqM); Albumin 3.7 g/dL (3.5-5.0); Albumin/Globulin Ratio 1.5; Alkaline Phosphatase 71 U/L (38-126); Anion Gap 7 mmol/L; Blood Urea Nitrogen 46 mg/dL (7-17); Carbon Dioxide 35 mmol/L (22-30); Chloride 92 mmol/L (98-107); Globulin 2.5 g/dL; Glucose 125 mg/dL (74-99); Non-African American GFR(CKD) >90 (>60 ml/min/1.73 sqM); Potassium 3.7 mmol/L (3.5-5.1); Sodium 134 mmol/L (137-145); Total Bilirubin 0.5 mg/dL (0.2-1.3); Total Protein 6.2 g/dL (6.3-8.2)
[2025-01-29 06:01] LABS: Anisocytosis Slight; Basophils % (A) 0 %; Eosinophils # (A) 0.1 k/uL (0-0.7); Eosinophils % (A) 1 %; HCT 42.7 % (34.0-46.0); HGB 13.8 gm/dL (11.4-16.0); Lymphocytes # (A) 1.8 k/uL (1.0-4.8); Lymphocytes % (A) 16 %; MCH 31.5 pg (25.0-35.0); MCHC 32.3 g/dL (31.0-37.0); Macrocytosis Slight; Mean Platelet Volume 7.9; Monocytes # (A) 0.5 k/uL (0-1.0); Monocytes % (A) 5 %; Neutrophils # (A) 8.3 k/uL (1.3-7.7); Neutrophils % (A) 77 %; Platelet Count 126 k/uL (150-450); RBC 4.38 m/uL (3.80-5.40); RDW 16.1 % (11.5-15.5); WBC 10.9 k/uL (3.8-10.6)
[2025-01-29 06:08] LABS: MCV 97.3 fL (80.0-100.0)
--- NOTE | 2025-01-29 08:00 | US ---
EXAMINATION TYPE: US abdomen complete DATE OF EXAM: 01/29/2025 COMPARISON: CTa 2023, US 2023 CLINICAL INDICATION: Female, 49 years old with history of cirrhosis; Cirrhosis, hx appendectomy. TECHNIQUE: Grayscale and color Doppler imaging of the abdomen was performed. FINDINGS: EXAM MEASUREMENTS: Liver Length: 20.0 cm Gallbladder Wall: 0.22 cm CBD: 0.53 cm, color Doppler imaging was utilized to isolate the common bile duct for measurement. Spleen: 12.2 cm Right Kidney: 11.6 x 5.0 x 5.2 cm Left Kidney: 11.6 x 6.1 x 6.7 cm GREASE MAKER NOTES: Exam is very limited due to gas and pt body habitus. Pancreas: Not well seen. Liver: *Enlarged, very coarse in echotexture with increased attenuation. Limited evaluation due to g as and body habitus. Gallbladder: Appears wnl Evidence for sonographic Demarco's sign: No CBD: wnl Spleen: wnl Right Kidney: wnl, No hydronephrosis, calculi or masses seen Left Kidney: wnl, No hydronephrosis, calculi or masses seen Upper IVC: wnl Abd Aorta: Only proximal segment was seen. Most of aorta was obscured. IMPRESSION: 1. No evidence for acute process. 2. Hepatomegaly with hepatic steatosis. [facility], , 01/29/2025 7:58 AM
--- NOTE | 2025-01-29 11:03 | P.PN ---
Subjective Progress Note Date: 01/29/25 SURGICAL PROGRESS NOTE CHIEF COMPLAINT: Ischemic changes of the toes HISTORY OF PRESENT ILLNESS: Patient is status post EGD reporting gastritis. Patient denies any vomiting. She does report able to tolerate diet. She does report some sticking in the back of her throat occasionally. She is complaining of constipation. Reports last bowel movement 2 days ago. Afebrile. WBC 10.9 PHYSICAL EXAM: VITAL SIGNS: Reviewed. GENERAL: Well-developed in no acute distress. ABDOMEN: Soft. Nondistended. Incisional hernia soft NEUROLOGIC: Alert and oriented. Cranial nerves II through XII grossly intact. ASSESSMENT: 1. Dysphagia status post EGD revealing gastritis 2. Chronic incarcerated incisional hernia PLAN: -Continue Protonix -Recommend outpatient repair of incisional hernia -Continue regular diet -Patient can be discharged from surgical standpoint when medically cleared Physician Snow Remover note has been reviewed by physician. Signing provider agrees with the documented findings, assessment, and plan of care. Objective - Vital Signs Vital signs: Vital Signs Temp 97.6 F 01/29/25 07:10 Pulse 63 01/29/25 07:10 Resp 17 01/29/25 07:10 BP 107/74 01/29/25 07:10 Pulse Ox 100 01/29/25 07:10 FiO2 21 01/17/25 07:56 Intake & Output 01/28/25 01/29/25 01/29/25 18:59 06:59 18:59 Weight 90.718 kg Other: Voiding Method Toilet Toilet Toilet # Voids 4 2 - Labs CBC & Chem 7: 01/29/25 05:12 01/29/25 05:12 Labs: Abnormal Lab Results - Last 24 Hours (Table) 01/29/25 01/29/25 Range/Units 05:12 05:12 WBC 10.9 H (3.8-10.6) k/uL RDW 16.1 H (11.5-15.5) % Plt Count 126 L (150-450) k/uL Neutrophils # 8.3 H (1.3-7.7) k/uL Sodium 134 L (137-145) mmol/L Chloride 92 L (98-107) mmol/L Carbon Dioxide 35 H (22-30) mmol/L BUN 46 H (7-17) mg/dL Glucose 125 H (74-99) mg/dL AST 54 H (14-36) U/L ALT 79 H (4-34) U/L Total Protein 6.2 L (6.3-8.2) g/dL
[2025-01-29] MEDS: DOCUSATE 100 MG CAP PO SCH (12:27)
--- NOTE | 2025-01-29 13:05 | P.PN ---
Subjective Progress Note Date: 01/28/25 Principal diagnosis: Reason for follow-up is right foot cellulitis Patient is a 49-year-old female with a past medical history significant for atrial fibrillation hypertension PE hypothyroidism recent admission to the hospital treated for pneumonia now presenting to the hospital concerning of bilateral big toe discoloration more on the right side with associated pain CT angiogram did not show any evidence of vascular occlusion vascular surgery is following the patient ID consulted because of ascending lymphangitis on the right side concerning for cellulitis. On today's evaluation that is 01/28/2025, Patient is afebrile this morning patient denies having any chest pain shortness of breath or worsening cough, the patient is currently on room air, patient denies any abdominal pain no diarrhea no nausea no vomiting. Patient white count 13.90 Objective - Vital Signs Vital signs: Vital Signs Temp 97.6 F 01/28/25 14:00 Pulse 58 L 01/28/25 14:00 Resp 14 01/28/25 14:00 BP 112/79 01/28/25 14:00 Pulse Ox 98 01/28/25 14:00 FiO2 21 01/17/25 07:56 Intake & Output 01/27/25 01/28/25 01/28/25 18:59 06:59 18:59 Intake Total 200 Balance 200 Intake: IV 200 Other: Voiding Method Toilet Toilet # Voids 2 3 - Exam GENERAL DESCRIPTION: Middle-age female lying in bed in no distress RESPIRATORY SYSTEM: Unlabored breathing , decreased breath sounds at bases HEART: S1 S2 regular rate and rhythm , ABDOMEN: Soft , no tenderness EXTREMITIES: Discoloration of the left big toe as well as the left second and third toe no purulent drainage - Labs CBC & Chem 7: 01/28/25 03:58 01/27/25 04:45 Labs: Abnormal Lab Results - Last 24 Hours (Table) 01/28/25 Range/Units 03:58 WBC 13.90 H (4.50-10.00) X 10*3/uL MCV 99.5 H (80.0-97.0) FL MCH 32.3 H (27.0-32.0) pg RDW 16.6 H (11.5-14.5) % Immature Gran # 0.08 H (0.00-0.04) X 10*3/uL Neutrophils # 10.43 H (1.80-7.70) X 10*3/uL Eosinophils # 0.02 L (0.04-0.35) X 10*3/uL Assessment and Plan (1) Cellulitis of right foot Current Visit: Yes Status: Acute Priority: High Code(s): L03.115 - CELLULITIS OF RIGHT LOWER LIMB SNOMED Code(s): 21065062995902025 (2) Thrush Current Visit: Yes Status: Acute Code(s): B37.0 - CANDIDAL STOMATITIS SNOMED Code(s): 45959906 (3) Tracheobronchitis Current Visit: No Status: Acute Code(s): J40 - BRONCHITIS, NOT SPECIFIED ACUTE OR CHRONIC SNOMED Code(s): 67128474 Plan: 1patient presented to hospital with bilateral big toe discoloration and pain in this patient who did have CT did not show any peripheral arterial disease with a question of possibly macrovascular versus Burger disease and is being followed by vascular surgery and now with concern for possible developing lymphangitis/cellulitis especially to the right foot area likely from gram- positive skin rodolfo. 2patient with a penicillin allergy that will limit the number of antibiotics safe to use. 3patient did have evidence of thrush and is complaining of persistent syndrome as well as some dysphagia concern for possible oropharyngeal candidiasis continue with Diflucan and nystatin swish and swallow patient is status post EGD with evidence of gastritis 4patient is afebrile, patient is currently being treated with oral Omnicef, care was discussed in detail with admitting physician who has mention patient has been refused transfer to 3 different facility and may possibly need amputation of the toe per vascular surgery here Dictation was produced using [employer] software. please excuse any grammatical, word or spelling errors.
[2025-01-29] MEDS: ARIPiprazole 5 MG TAB PO SCH (15:51)
--- NOTE | 2025-01-29 16:49 | P.PN ---
Subjective Progress Note Date: 01/29/25 Principal diagnosis: Reason for follow-up is right foot cellulitis Patient is a 49-year-old female with a past medical history significant for atrial fibrillation hypertension PE hypothyroidism recent admission to the hospital treated for pneumonia now presenting to the hospital concerning of bilateral big toe discoloration more on the right side with associated pain CT angiogram did not show any evidence of vascular occlusion vascular surgery is following the patient ID consulted because of ascending lymphangitis on the right side concerning for cellulitis. On today's evaluation that is 01/29/2025,the patient denies any fever or any chills, patient is breathing comfortably on room air, the patient denies chest pain shortness of breath did have occasional cough, patient denies abdominal pain, no nausea vomiting or diarrhea, swelling or pain to the right big toe with discoloration. Patient white count is 10.9, creatinine 0.75. Objective - Vital Signs Vital signs: Vital Signs Temp 97.6 F 01/29/25 07:10 Pulse 63 01/29/25 07:10 Resp 17 01/29/25 07:10 BP 107/74 01/29/25 07:10 Pulse Ox 100 01/29/25 07:10 FiO2 21 01/17/25 07:56 Intake & Output 01/28/25 01/29/25 01/29/25 18:59 06:59 18:59 Intake Total 118 Balance 118 Weight 90.718 kg Intake: Oral 118 Other: Voiding Method Toilet Toilet Toilet # Voids 4 2 - Exam GENERAL DESCRIPTION: Middle-age female lying in bed in no distress RESPIRATORY SYSTEM: Unlabored breathing , decreased breath sounds at bases HEART: S1 S2 regular rate and rhythm , ABDOMEN: Soft , no tenderness EXTREMITIES: Discoloration of the left big toe as well as the left second and third toe no purulent drainage - Labs CBC & Chem 7: 01/29/25 05:12 01/29/25 05:12 Labs: Abnormal Lab Results - Last 24 Hours (Table) 01/29/25 01/29/25 Range/Units 05:12 05:12 WBC 10.9 H (3.8-10.6) k/uL RDW 16.1 H (11.5-15.5) % Plt Count 126 L (150-450) k/uL Neutrophils # 8.3 H (1.3-7.7) k/uL Sodium 134 L (137-145) mmol/L Chloride 92 L (98-107) mmol/L Carbon Dioxide 35 H (22-30) mmol/L BUN 46 H (7-17) mg/dL Glucose 125 H (74-99) mg/dL AST 54 H (14-36) U/L ALT 79 H (4-34) U/L Total Protein 6.2 L (6.3-8.2) g/dL Assessment and Plan (1) Cellulitis of right foot Current Visit: Yes Status: Acute Priority: High Code(s): L03.115 - CELLULITIS OF RIGHT LOWER LIMB SNOMED Code(s): 46249490918764479 (2) Thrush Current Visit: Yes Status: Acute Code(s): B37.0 - CANDIDAL STOMATITIS SNOMED Code(s): 77506646 (3) Tracheobronchitis Current Visit: No Status: Acute Code(s): J40 - BRONCHITIS, NOT SPECIFIED ACUTE OR CHRONIC SNOMED Code(s): 04030142 Plan: 1patient presented to hospital with bilateral big toe discoloration and pain in this patient who did have CT did not show any peripheral arterial disease with a question of possibly macrovascular versus Burger disease and is being followed by vascular surgery and now with concern for possible developing lymphangitis/cellulitis especially to the right foot area likely from gram- positive skin rodolfo. 2patient with a penicillin allergy that will limit the number of antibiotics safe to use. 3patient did have evidence of thrush and is complaining of persistent syndrome as well as some dysphagia concern for possible oropharyngeal candidiasis continue with Diflucan and nystatin swish and swallow patient is status post EGD with evidence of gastritis 4patient is afebrile the patient white count down to 10.9 on Omnicef may consi jessica short course on discharge Dictation was produced using [employer] software. please excuse any grammatical, word or spelling errors.
[2025-01-29] MEDS: oxyCODONE-APAP 7.5-325MG 1 EACH TAB PO PRN (20:30)
--- NOTE | 2025-01-29 22:14 | PN ---
PROGRESS NOTE Ultrasound of her abdomen showed no acute process and fatty liver. She says her anxiety is out of control. 0.5 Ativan is not working. 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 We are going to switch her over to Percocet instead. The pain was 10/10, anxiety is 10/10. She is unable to care for herself at this point until they find out what they are going to do with the toes and she is so anxious about it. We are going to get her into a long term for rehab and follow up with Vascular Surgery. Reassess depression medicine. Continue on her medications for COPD. No ascites. Hypothyroid, continue on her medicine; hypertension, continue on her medicine. Is more stable now. Nicotine patch. Treat her some for depression. Prognosis is guarded. She takes trazodone 50 mg at night for anxiety and she is on Zoloft 100 b.i.d. possibly get Psychiatry to see her. Lungs are clear. CARDIOVASCULAR: S1, S2. HEMATOLOGIC, she has less edema, maybe 1 to 2+, black ischemic toes, great toe on the right, 2nd toe on the right 2nd and 3rd toe on the left are unchanged with necrotic and gangrenous material, dark black toes. No further changes. Flat affect. Suspect she is depressed. We are going to get Psych to see her. Prognosis is guarded. MMODL / IJN: [id number] /
[2025-01-30] MEDS: LORazepam 1 MG/0.5 ML VIAL IV PRN (00:46)
[2025-01-30] MEDS: LORazepam 1 MG TAB PO PRN (09:34)
--- NOTE | 2025-01-30 11:17 | P.PN ---
Subjective Progress Note Date: 01/30/25 SURGICAL PROGRESS NOTE CHIEF COMPLAINT: Ischemic changes of the toes HISTORY OF PRESENT ILLNESS: Patient is status post EGD reporting gastritis. Patient denies any vomiting. She reports that she is able to eat the food when it is cut very small and go slow. She still has some intermittent sticking of the food when she swallows. Denies any nausea or vomiting. Last bowel movement 3 days ago. She started stool softener last night. PHYSICAL EXAM: VITAL SIGNS: Reviewed. GENERAL: Well-developed in no acute distress. ABDOMEN: Soft. Nondistended. Incisional hernia soft NEUROLOGIC: Alert and oriented. Cranial nerves II through XII grossly intact. ASSESSMENT: 1. Dysphagia status post EGD revealing gastritis 2. Chronic incarcerated incisional hernia PLAN: -Continue Protonix -Recommend outpatient repair of incisional hernia -Continue regular diet -Continue stool softener -Patient can be discharged from surgical standpoint when medically cleared Physician Php Programmer note has been reviewed by physician. Signing provider agrees with the documented findings, assessment, and plan of care. Objective - Vital Signs Vital signs: Vital Signs Temp 98.2 F 01/30/25 07:15 Pulse 76 01/30/25 07:15 Resp 18 01/30/25 07:15 BP 113/70 01/30/25 07:15 Pulse Ox 90 L 01/30/25 07:15 FiO2 21 01/17/25 07:56 Intake & Output 01/29/25 01/30/25 01/30/25 18:59 06:59 18:59 Intake Total 562 540 118 Balance 562 540 118 Intake: Oral 562 540 118 Other: Voiding Method Toilet Toilet # Voids 2 2 # Bowel Movements 0 - Labs CBC & Chem 7: 01/29/25 05:12 01/29/25 05:12
--- NOTE | 2025-01-30 16:09 | P.PN ---
Subjective Progress Note Date: 01/30/25 Principal diagnosis: Reason for follow-up is right foot cellulitis Patient is a 49-year-old female with a past medical history significant for atrial fibrillation hypertension PE hypothyroidism recent admission to the hospital treated for pneumonia now presenting to the hospital concerning of bilateral big toe discoloration more on the right side with associated pain CT angiogram did not show any evidence of vascular occlusion vascular surgery is following the patient ID consulted because of ascending lymphangitis on the right side concerning for cellulitis. On today's evaluation that is 01/30/2025,the patient remains to be afebrile, patient is on room air not requiring supplemental oxygen and denies any shortness of breath no chest pain or cough.Patient denies having any nausea or vomiting, no abdominal pain and no diarrhea circumventing of pain to the lower extremity and wants more pain medication. No new lab has been repeated today Objective - Vital Signs Vital signs: Vital Signs Temp 98.2 F 01/30/25 07:15 Pulse 76 01/30/25 07:15 Resp 18 01/30/25 07:15 BP 113/70 01/30/25 07:15 Pulse Ox 90 L 01/30/25 07:15 FiO2 21 01/17/25 07:56 Intake & Output 01/29/25 01/30/25 01/30/25 18:59 06:59 18:59 Intake Total 562 540 118 Balance 562 540 118 Intake: Oral 562 540 118 Other: Voiding Method Toilet Toilet # Voids 2 2 # Bowel Movements 0 - Exam GENERAL DESCRIPTION: Middle-age female lying in bed in no distress RESPIRATORY SYSTEM: Unlabored breathing , decreased breath sounds at bases HEART: S1 S2 regular rate and rhythm , ABDOMEN: Soft , no tenderness EXTREMITIES: Discoloration of the left big toe as well as the left second and third toe no purulent drainage - Labs CBC & Chem 7: 01/29/25 05:12 01/29/25 05:12 Assessment and Plan (1) Cellulitis of right foot Current Visit: Yes Status: Acute Priority: High Code(s): L03.115 - CELLULITIS OF RIGHT LOWER LIMB SNOMED Code(s): 84667760791348710 (2) Thrush Current Visit: Yes Status: Acute Code(s): B37.0 - CANDIDAL STOMATITIS SNOMED Code(s): 31572283 (3) Tracheobronchitis Current Visit: No Status: Acute Code(s): J40 - BRONCHITIS, NOT SPECIFIED ACUTE OR CHRONIC SNOMED Code(s): 00002405 Plan: 1patient presented to hospital with bilateral big toe discoloration and pain in this patient who did have CT did not show any peripheral arterial disease with a question of possibly macrovascular versus Burger disease and is being followed by vascular surgery and now with concern for possible developing lymphangitis/cellulitis especially to the right foot area likely from gram- positive skin rodolfo. 2patient with a penicillin allergy that will limit the number of antibiotics safe to use. 3patient did have evidence of thrush and is complaining of persistent syndrome as well as some dysphagia concern for possible oropharyngeal candidiasis nadine nue with Diflucan and nystatin swish and swallow patient is status post EGD with evidence of gastritis 4patient is afebrile the patient white count down to 10.9 as of yesterday no CBC has been done today, patient is currently on Omnicef may consider short course on discharge Dictation was produced using [employer] dictation software. please excuse any grammatical, word or spelling errors. Time with Patient: Less than 30
--- NOTE | 2025-01-31 01:46 | PN ---
PROGRESS NOTE SUBJECTIVE: A 49-year-old white female, remains on hypertension medications, antibiotics for her foot. Diuretics, she says she can't ambulate due to significant pain in her feet. Possibly get a pain clinic evaluation for pain in her feet. Percocet 7.5 is not taking care of her pain. She states anxiety is bad. She is on Ativan 1 mg every 6 p.r.n. Trying to get her into a [facility], does not think she can care for herself. Wonders if she qualifies. Otherwise, discharge plan, we will have to talk to her about going home. OBJECTIVE: VITAL SIGNS: Temp 98.2, pulse 58, blood pressure 96/56, saturating 90% on room air. ASSESSMENT AND PLAN: Acute hypoxemic respiratory failure secondary to pneumonia, chronic obstructive pulmonary disease, diastolic heart failure, history of alcohol abuse, hypertension acceleration, Buerger's disease. Prognosis guarded. Dr. Tuttle is here again for cellulitis of the feet, which appears to be worsening. Continue her blood pressure medications, possibly cut down on some of them if her blood pressure is riding low. PT, OT to ambulate. Vascular outpatient appointment when discharged. Please see further orders. MMODL / IJN: [id number] /
[2025-01-31] MEDS: METOPROLOL TARTRATE 25 MG TAB PO SCH (09:47)
[2025-01-31] MEDS: DILTIAZEM ORAL 30 MG TAB PO SCH (10:11)
--- NOTE | 2025-01-31 13:28 | P.PN ---
Subjective Progress Note Date: 01/31/25 SURGICAL PROGRESS NOTE CHIEF COMPLAINT: Ischemic changes of the toes HISTORY OF PRESENT ILLNESS: Patient is status post EGD reporting gastritis. Patient denies any vomiting. She has been tolerating diet. She is also on medication for thrush. Afebrile PHYSICAL EXAM: VITAL SIGNS: Reviewed. GENERAL: Well-developed in no acute distress. ABDOMEN: Soft. Nondistended. Incisional hernia soft NEUROLOGIC: Alert and oriented. Cranial nerves II through XII grossly intact. ASSESSMENT: 1. Dysphagia status post EGD revealing gastritis 2. Chronic incarcerated incisional hernia PLAN: -Continue Protonix -Recommend outpatient repair of incisional hernia -Continue regular diet -Continue stool softener -Patient can be discharged from surgical standpoint when medically cleared Physician Supervisor Policy Change Clerks note has been reviewed by physician. Signing provider agrees with the documented findings, assessment, and plan of care. Objective - Vital Signs Vital signs: Vital Signs Temp 98.3 F 01/31/25 08:00 Pulse 69 01/31/25 08:00 Resp 16 01/31/25 09:39 BP 108/74 01/31/25 08:00 Pulse Ox 97 01/31/25 08:00 FiO2 21 01/17/25 07:56 Intake & Output 01/30/25 01/31/25 01/31/25 18:59 06:59 18:59 Intake Total 358 1080 118 Balance 358 1080 118 Intake: Oral 358 1080 118 Other: Voiding Method Toilet Toilet # Voids 3 2 - Labs CBC & Chem 7: 01/29/25 05:12 01/29/25 05:12
--- NOTE | 2025-01-31 15:13 | CT ---
EXAMINATION TYPE: CT chest wo con DATE OF EXAM: 01/30/2025 11:46 PM COMPARISON: 01/15/2025 CLINICAL INDICATION: Female, 49 years old with history of hypoxia; PHH, hypoxia, pt unable to raise l t arm due to fx. TECHNIQUE: Multiple axial images were obtained through the chest. Sagittal and coronal reformats were created for review. MIP was performed on a separate workstation. Contrast used: mL of (None if empty) Oral contrast used: (None if empty) CT DLP: 805.4 mGycm, Automated exposure control for dose reduction was used. FINDINGS: LUNGS/ PLEURA: No focal consolidation, pneumothorax or pleural effusion. AIRWAY: Patent and unremarkable. HEART: Size within normal limits. Mild coronary artery calcifications present. MEDIASTINUM: No gross evidence of adenopathy. VASCULATURE: No aortic aneurysm. MUSCULOSKELETAL: Moderate disc degeneration changes are present throughout the thoracolumbar spine se condary to osteophyte formation and facet joint arthropathy.; subacute/chronic left-sided rib 8-9-10 fractures with incomplete healing of the ribs 8 and 9 fractures. SOFT TISSUES/LYMPH NODES: Unremarkable. LOWER NECK: No significant findings. UPPER ABDOMEN: No significant findings. IMPRESSION: No evidence for acute intrathoracic process. Subacute to chronic appearing left rib fractures which are not completely fused. Follow up recommendations for incidental pulmonary nodules, if there are any, are per [employer] or [employer]. https://radiopaedia.org/articles/sgybierxyx-wpjohks-duffbjlpy-[email or web address]?lang=us [facility], , 01/31/2025 3:10 PM
--- NOTE | 2025-01-31 16:15 | P.PN ---
Subjective Progress Note Date: 01/31/25 Principal diagnosis: Reason for follow-up is right foot cellulitis Patient is a 49-year-old female with a past medical history significant for atrial fibrillation hypertension PE hypothyroidism recent admission to the hospital treated for pneumonia now presenting to the hospital concerning of bilateral big toe discoloration more on the right side with associated pain CT angiogram did not show any evidence of vascular occlusion vascular surgery is following the patient ID consulted because of ascending lymphangitis on the right side concerning for cellulitis. On today's evaluation that is 01/31/2025, the patient continues to be afebrile, the patient is on room air and breathing comfortably, the Pt denies having any chest pain or cough, the patient denies having any abdominal pain no vomiting or any diarrhea, has been complaining of more pain to bilateral extremity tomorrow thing started last night. No new lab has been repeated today Objective - Vital Signs Vital signs: Vital Signs Temp 98.3 F 01/31/25 08:00 Pulse 69 01/31/25 08:00 Resp 16 01/31/25 09:39 BP 108/74 01/31/25 08:00 Pulse Ox 97 01/31/25 08:00 FiO2 21 01/17/25 07:56 Intake & Output 01/30/25 01/31/25 01/31/25 18:59 06:59 18:59 Intake Total 358 1080 118 Balance 358 1080 118 Intake: Oral 358 1080 118 Other: Voiding Method Toilet Toilet # Voids 3 2 - Exam GENERAL DESCRIPTION: Middle-age female lying in bed in no distress RESPIRATORY SYSTEM: Unlabored breathing , decreased breath sounds at bases HEART: S1 S2 regular rate and rhythm , ABDOMEN: Soft , no tenderness EXTREMITIES: Discoloration of the left big toe as well as the left second and third toe no purulent drainage - Labs CBC & Chem 7: 01/29/25 05:12 01/29/25 05:12 Assessment and Plan (1) Cellulitis of right foot Current Visit: Yes Status: Acute Priority: High Code(s): L03.115 - CE LLULITIS OF RIGHT LOWER LIMB SNOMED Code(s): 67582595746731321 (2) Thrush Current Visit: Yes Status: Acute Code(s): B37.0 - CANDIDAL STOMATITIS SNOMED Code(s): 66091240 (3) Tracheobronchitis Current Visit: No Status: Acute Code(s): J40 - BRONCHITIS, NOT SPECIFIED ACUTE OR CHRONIC SNOMED Code(s): 84400219 Plan: 1patient presented to hospital with bilateral big toe discoloration and pain in this patient who did have CT did not show any peripheral arterial disease with a question of possibly macrovascular versus Burger disease and is being followed by vascular surgery and now with concern for possible developing lymphangitis/cellulitis especially to the right foot area likely from gram- positive skin rodolfo. 2patient with a penicillin allergy that will limit the number of antibiotics safe to use. 3patient did have evidence of thrush and is complaining of persistent syndrome as well as some dysphagia concern for possible oropharyngeal candidiasis continue with Diflucan and nystatin swish and swallow patient is status post EGD with evidence of gastritis 4patient is afebrile however noted to have worsening erythema on the dorsum aspect of bilateral feet especially the right side we will add daptomycin empirically for the cellulitis discontinue Omnicef Dictation was produced using [employer] dictation software. please excuse any grammatical, word or spelling errors. Time with Patient: Less than 30
--- NOTE | 2025-02-01 03:18 | PN ---
PROGRESS NOTE A 49-year-old white female, vasculitis, Buerger's disease, hypoxemic respiratory failure secondary to COPD, influenza A, alcohol dependence and abuse over the years. Her leg swelling has decreased with increased [place]. Remains on oxygen and breathing treatments. GI distended. Ultrasound is negative for any fluid. Hematologic 1 to 2+ edema. Integument shows reddening over the anterior bilateral feet and the midfoot. Prognosis guarded. ASSESSMENT: Cellulitis, Buerger's disease, vasculitis, and broad-spectrum antibiotics. Prognosis guarded. Continue current treatments. Dr. Tuttle is involved. Put her back on IV daptomycin due to worsening cellulitis of bilateral feet into the mid foot on the anterior side of both feet, Buerger's disease, vasculitis with gangrene appears to be unchanged. Prognosis guarded. Pain control is out of control she says, we will get Pain Clinic consult as Percocet 7.5 every 4 hours are not working. Prognosis guarded. MMODL / IJN: [id number] /
[2025-02-01 09:53] LABS: Basophils # (A) 0.03 X 10*3/uL (0.00-0.10); Basophils % (A) 0.4 %; Eosinophils # (A) 0.07 X 10*3/uL (0.04-0.35); Eosinophils % (A) 0.9 %; HCT 38.1 % (37.2-46.3); HGB 11.9 g/dL (12.0-15.0); Lymphocytes # (A) 1.31 X 10*3/uL (0.90-5.00); Lymphocytes % (A) 17.7 %; MCH 31.8 pg (27.0-32.0); MCHC 31.2 g/dL (32.0-37.0); MCV 101.9 FL (80.0-97.0); Mean Platelet Volume 10.8 FL (9.5-12.2); Monocytes # (A) 0.44 X 10*3/uL (0.20-1.00); Monocytes % (A) 5.9 %; NRBC Per 100 WBC 0 X 10*3/uL (0.00-0.01); Neutrophils # (A) 5.53 X 10*3/uL (1.80-7.70); Neutrophils % (A) 74.7 %; Platelet Count 122 X 10*3/uL (140-440); RBC 3.74 X 10*6/uL (4.10-5.20); RDW 16.7 % (11.5-14.5); WBC 7.41 X 10*3/uL (4.50-10.00)
[2025-02-01 10:33] LABS: ALT 61 U/L (8-44); AST 36 U/L (13-35); Albumin 3.7 g/dL (3.8-4.9); Albumin/Globulin Ratio 1.68 Ratio (1.60-3.17); Alkaline Phosphatase 90 U/L (41-126); BUN/Creat Ratio 22.43 Ratio (12.00-20.00); Blood Urea Nitrogen 15.7 mg/dL (9.0-27.0); Carbon Dioxide 28.7 mmol/L (21.6-31.8); Chloride 100 mmol/L (96-109); Globulin 2.2 g/dL (1.6-3.3); Glucose 124 mg/dL (70-110); Potassium 4.1 mmol/L (3.5-5.5); Sodium 140 mmol/L (135-145); Total Bilirubin 0.3 mg/dL (0.3-1.2); Total Protein 5.9 g/dL (6.2-8.2)
--- NOTE | 2025-02-01 15:43 | P.PN ---
Subjective Progress Note Date: 02/01/25 Principal diagnosis: Reason for follow-up is right foot cellulitis Patient is a 49-year-old female with a past medical history significant for atrial fibrillation hypertension PE hypothyroidism recent admission to the hospital treated for pneumonia now presenting to the hospital concerning of bilateral big toe discoloration more on the right side with associated pain CT angiogram did not show any evidence of vascular occlusion vascular surgery is following the patient ID consulted because of ascending lymphangitis on the right side concerning for cellulitis. On today's evaluation that is 02/01/2025, patient did not have any fever and denies any chills, patient is breathing comfortably on room air, patient with no chest pain or cough patient did not have any abdominal pain complaining of pain to bilateral feet area. Patient white count normal at 7.41 creatinine 0.7 Objective - Vital Signs Vital signs: Vital Signs Temp 98.5 F 02/01/25 14:00 Pulse 81 02/01/25 14:00 Resp 17 02/01/25 14:00 BP 116/72 02/01/25 14:00 Pulse Ox 93 L 02/01/25 14:00 FiO2 21 01/17/25 07:56 Intake & Output 01/31/25 02/01/25 02/01/25 18:59 06:59 18:59 Intake Total 236 Balance 236 Intake: Oral 236 Other: Voiding Method Toilet Toilet Toilet Bedside Commode # Voids 2 2 - Exam GENERAL DESCRIPTION: Middle-age female lying in bed in no distress RESPIRATORY SYSTEM: Unlabored breathing , decreased breath sounds at bases HEART: S1 S2 regular rate and rhythm , ABDOMEN: Soft , no tenderness EXTREMITIES: Discoloration of the left big toe as well as the left second and third toe no purulent drainage - Labs CBC & Chem 7: 02/01/25 04:48 02/01/25 04:48 Labs: Abnormal Lab Results - Last 24 Hours (Table) 02/01/25 02/01/25 Range/Units 04:48 04:48 RBC 3.74 L (4.10-5.20) X 10*6/uL Hgb 11.9 L (12.0-15.0) g/dL MCV 101.9 H (80.0-97.0) FL MCHC 31.2 L (32.0-37.0) g/dL RDW 16.7 H (11.5-14.5) % Plt Count 122 L (140-440) X 10*3/uL BUN/Creatinine Ratio 22.43 H (12.00-20.00) Ratio Glucose 124 H (70-110) mg/dL AST 36 H (13-35) U/L ALT 61 H (8-44) U/L C-Reactive Protein 7.00 H (0.00-0.80) mg/dL Total Protein 5.9 L (6.2-8.2) g/dL Albumin 3.7 L (3.8-4.9) g/dL Assessment and Plan (1) Cellulitis of right foot Current Visit: Yes Status: Acute Priority: High Code(s): L03.115 - CELLULITIS OF RIGHT LOWER LIMB SNOMED Code(s): 41920590875583741 (2) Thrush Current Visit: Yes Status: Acute Code(s): B37.0 - CANDIDAL STOMATITIS SNOMED Code(s): 89735617 (3) Tracheobronchitis Current Visit: No Status: Acute Code(s): J40 - BRONCHITIS, NOT SPECIFIED ACUTE OR CHRONIC SNOMED Code(s): 25069871 Plan: 1patient presented to hospital with bilateral big toe discoloration and pain in this patient who did have CT did not show any peripheral arterial disease with a question of possibly macrovascular versus Burger disease and is being followed by vascular surgery and now with concern for possible developing lymphangitis/cellulitis especially to the right foot area likely from gram- positive skin rodolfo. 2patient with a penicillin allergy that will limit the number of antibiotics safe to use. 3patient did have evidence of thrush and is complaining of persistent syndrome as well as some dysphagia concern for possible oropharyngeal candidiasis continue with Diflucan and nystatin swish and swallow patient is status post EGD with evidence of gastritis 4patient was noted to have worsening erythema on the dorsum aspect of bilateral feet especially the right side, for the patient was started on daptomycin yesterday erythema has slightly receded the patient white count normalized, will continue with the daptomycin and monitor clinical course closely Dictation was produced using [employer] dictation software. please excuse any grammatical, word or spelling errors. Time with Patient: Less than 30
--- NOTE | 2025-02-01 18:15 | PN ---
PROGRESS NOTE SUBJECTIVE: A 49-year-old white female with vasculitis of the toes with severe erythema and redness starting to come up the feet, on IV daptomycin per Dr. Tuttle. Waiting for his recommendations for IV antibiotics at home. So, she reported to rehab center, want to get a 3rd opinion. Buerger's disease and vasculitis of the toes with . Otherwise, her leg edema is 2+ today. OBJECTIVE: CARDIOVASCULAR: S1, S2. LUNGS: Transmitted upper airway sounds. GI: Soft. HEMATOLOGY: Negative Homans. ASSESSMENT: Buerger's disease, cellulitis of feet, COPD, diastolic CHF, alcohol abuse dependence. PROGNOSIS: Guarded. stable. Please see further orders. MMODL / IJN: [id number] /
[2025-02-02 09:22] LABS: HCT 33.7 % (37.2-46.3); MCH 32.5 pg (27.0-32.0); MCHC 32.6 g/dL (32.0-37.0); MCV 99.7 FL (80.0-97.0); Mean Platelet Volume 10.7 FL (9.5-12.2); NRBC Per 100 WBC 0 X 10*3/uL (0.00-0.01); Platelet Count 128 X 10*3/uL (140-440); RBC 3.38 X 10*6/uL (4.10-5.20); RDW 16.8 % (11.5-14.5); WBC 5.21 X 10*3/uL (4.50-10.00)
[2025-02-02 09:33] LABS: ALT 52 U/L (8-44); AST 29 U/L (13-35); Albumin 3.6 g/dL (3.8-4.9); Albumin/Globulin Ratio 1.89 Ratio (1.60-3.17); Alkaline Phosphatase 84 U/L (41-126); BUN/Creat Ratio 21.71 Ratio (12.00-20.00); Blood Urea Nitrogen 15.2 mg/dL (9.0-27.0); Calcium 8.8 mg/dL (8.7-10.3); Carbon Dioxide 28.6 mmol/L (21.6-31.8); Chloride 100 mmol/L (96-109); Globulin 1.9 g/dL (1.6-3.3); Glucose 143 mg/dL (70-110); Potassium 3.8 mmol/L (3.5-5.5); Sodium 140 mmol/L (135-145); Total Bilirubin 0.3 mg/dL (0.3-1.2); Total Protein 5.5 g/dL (6.2-8.2)
[2025-02-02 10:57] LABS: Basophils # (A) 0.01 X 10*3/uL (0.00-0.10); Basophils % (A) 0.2 %; Eosinophils # (A) 0.06 X 10*3/uL (0.04-0.35); Eosinophils % (A) 1.2 %; Monocytes # (A) 0.38 X 10*3/uL (0.20-1.00); Monocytes % (A) 7.3 %; Neutrophils # (A) 3.45 X 10*3/uL (1.80-7.70); Neutrophils % (A) 66.1 %; Stomatocytes 2+ (None Seen)
--- NOTE | 2025-02-02 16:41 | P.PN ---
Subjective Progress Note Date: 02/02/25 Principal diagnosis: Reason for follow-up is right foot cellulitis Patient is a 49-year-old female with a past medical history significant for atrial fibrillation hypertension PE hypothyroidism recent admission to the hospital treated for pneumonia now presenting to the hospital concerning of bilateral big toe discoloration more on the right side with associated pain CT angiogram did not show any evidence of vascular occlusion vascular surgery is following the patient ID consulted because of ascending lymphangitis on the right side concerning for cellulitis. On today's evaluation that is 02/02/2025, Patient is afebrile patient is currently on room air and denies having any shortness of breath, the patient denies any chest pain or any worsening cough, the patient denies any nausea vomiting did not have any abdominal pain and no diarrhea, still complaining of pain to the lower extremity toes with discoloration however redness has decreased. Patient white count is 5.21, creatinine 0.7 Objective - Vital Signs Vital signs: Vital Signs Temp 98.2 F 02/02/25 06:46 Pulse 76 02/02/25 06:46 Resp 17 02/02/25 06:46 BP 112/70 02/02/25 06:46 Pulse Ox 96 02/02/25 06:46 FiO2 21 01/17/25 07:56 Intake & Output 02/01/25 02/02/25 02/02/25 18:59 06:59 18:59 Other: Voiding Method Toilet Toilet Toilet Bedside Commode Bedside Commode Bedside Commode # Voids 4 2 # Bowel Movements 1 - Exam GENERAL DESCRIPTION: Middle-age female lying in bed in no distress RESPIRATORY SYSTEM: Unlabored breathing , decreased breath sounds at bases HEART: S1 S2 regular rate and rhythm , ABDOMEN: Soft , no tenderness EXTREMITIES: Discoloration of the left big toe as well as the left second and third toe no purulent drainage - Labs CBC & Chem 7: 02/02/25 05:02 02/02/25 05:02 Labs: Abnormal Lab Results - Last 24 Hours (Table) 02/02/25 02/02/25 Range/Units 05:02 05:02 RBC 3.38 L (4.10-5.20) X 10*6/uL Hgb 11.0 L (12.0-15.0) g/dL Hct 33.7 L (37.2-46.3) % MCV 99.7 H (80.0-97.0) FL MCH 32.5 H (27.0-32.0) pg RDW 16.8 H (11.5-14.5) % Plt Count 128 L (140-440) X 10*3/uL Stomatocytes 2+ A (None Seen) BUN/Creatinine Ratio 21.71 H (12.00-20.00) Ratio Glucose 143 H (70-110) mg/dL ALT 52 H (8-44) U/L Total Protein 5.5 L (6.2-8.2) g/dL Albumin 3.6 L (3.8-4.9) g/dL Assessment and Plan (1) Cellulitis of right foot Current Visit: Yes Status: Acute Priority: High Code(s): L03.115 - CELLULITIS OF RIGHT LOWER LIMB SNOMED Code(s): 49571002452016976 (2) Thrush Current Visit: Yes Status: Acute Code(s): B37.0 - CANDIDAL STOMATITIS SNOMED Code(s): 88784375 (3) Tracheobronchitis Current Visit: No Status: Acute Code(s): J40 - BRONCHITIS, NOT SPECIFIED ACUTE OR CHRONIC SNOMED Code(s): 84677499 Plan: 1patient presented to hospital with bilateral big toe discoloration and pain in this patient who did have CT did not show any peripheral arterial disease with a question of possibly macrovascular versus Burger disease and is being followed by vascular surgery and now with concern for possible developing lymphangitis/cellulitis especially to the right foot area likely from gram- positive skin rodolfo. 2patient with a penicillin allergy that will limit the number of antibiotics safe to use. 3patient did have evidence of thrush and is complaining of persistent syndrome as well as some dysphagia concern for possible oropharyngeal candidiasis continue with Diflucan and nystatin swish and swallow patient is status post EGD with evidence of gastritis 4patient did have improvement of erythema to the dorsal aspect of bilateral feet with the daptomycin to continue while inpatient and the patient white count has normalized did have multiple questions were answered Dictation was produced using [employer] dictation software. please excuse any grammatical, word or spelling errors. Time with Patient: Less than 30
[2025-02-02] MEDS: BUMETANIDE 0.25 MG/ML 4 ML VIAL IVP STA (18:54)
[2025-02-02] MEDS: BUMETANIDE 1 MG TAB PO SCH (19:44)
--- NOTE | 2025-02-02 23:30 | PN ---
PROGRESS NOTE SUBJECTIVE: 49-year-old white female, admitted to the hospital for cellulitis in her lower legs and has been responding to IV antibiotics per Dr. Tuttle's recommendations. Her gangrene is stable in her toe. She wants another opinion with Dr. Lopez in the morning on the gangrene. She has a lot of edema in her legs 2 to 3+. We are going to give her an extra dose of Bumex and increase her Bumex to 2 mg p.o. b.i.d. Continue on her breathing treatments, oxygen at night. CAT scan of the chest is reviewed. ASSESSMENT: Has, 1. Chronic obstructive pulmonary disease. 2. Status post influenza. 3. COVID. 4. Acute on chronic diastolic heart failure. 5. 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 6. Alcohol dependence. 7. Nicotine dependence. Hemoglobin is stable at 11. White count is better at 5.2. Sodium and potassium are normal. GFR is 107. Prognosis, guarded. we are going to increase Bumex give her extra IV dose tonight. Dr. Lopez's vascular consult in the morning. Possibly use IV antibiotics with a PICC line to the intermediate. She will need intermediate placement. PROGNOSIS: Guarded. MMODL / IJN: [id number] /
[2025-02-03 08:42] LABS: Basophils # (A) 0.01 X 10*3/uL (0.00-0.10); Basophils % (A) 0.2 %; Eosinophils # (A) 0.09 X 10*3/uL (0.04-0.35); Eosinophils % (A) 1.5 %; HGB 11.6 g/dL (12.0-15.0); Lymphocytes # (A) 1.47 X 10*3/uL (0.90-5.00); Lymphocytes % (A) 23.8 %; MCH 32.3 pg (27.0-32.0); MCHC 32.2 g/dL (32.0-37.0); MCV 100.3 FL (80.0-97.0); Mean Platelet Volume 10.8 FL (9.5-12.2); Monocytes # (A) 0.44 X 10*3/uL (0.20-1.00); Monocytes % (A) 7.1 %; NRBC Per 100 WBC 0 X 10*3/uL (0.00-0.01); Neutrophils # (A) 4.13 X 10*3/uL (1.80-7.70); Neutrophils % (A) 66.9 %; Platelet Count 143 X 10*3/uL (140-440); RBC 3.59 X 10*6/uL (4.10-5.20); RDW 16.5 % (11.5-14.5); WBC 6.17 X 10*3/uL (4.50-10.00)
[2025-02-03 08:48] LABS: ALT 52 U/L (8-44); AST 33 U/L (13-35); Albumin 3.7 g/dL (3.8-4.9); Albumin/Globulin Ratio 1.68 Ratio (1.60-3.17); Alkaline Phosphatase 99 U/L (41-126); BUN/Creat Ratio 16.43 Ratio (12.00-20.00); Blood Urea Nitrogen 11.5 mg/dL (9.0-27.0); Calcium 9.3 mg/dL (8.7-10.3); Chloride 100 mmol/L (96-109); Globulin 2.2 g/dL (1.6-3.3); Glucose 148 mg/dL (70-110); Potassium 3.9 mmol/L (3.5-5.5); Sodium 141 mmol/L (135-145); Total Bilirubin 0.3 mg/dL (0.3-1.2); Total Protein 5.9 g/dL (6.2-8.2)
--- NOTE | 2025-02-03 13:18 | P.PN ---
Subjective Progress Note Date: 02/03/25 SURGICAL PROGRESS NOTE CHIEF COMPLAINT: Ischemic changes of the toes HISTORY OF PRESENT ILLNESS: Patient is status post EGD reporting gastritis. Patient denies any vomiting. She has been tolerating diet. She does report discomfort at her incisional hernia. She does report bowel movements. She complains mostly of her toes and is being evaluated by Dr. Lopez, vascular surgery for second opinion PHYSICAL EXAM: VITAL SIGNS: Reviewed. GENERAL: Well-developed in no acute distress. ABDOMEN: Soft. Nondistended. Incisional hernia soft NEUROLOGIC: Alert and oriented. Cranial nerves II through XII grossly intact. ASSESSMENT: 1. Dysphagia status post EGD revealing gastritis 2. Chronic incarcerated incisional hernia PLAN: -Recommend outpatient repair of incisional hernia -Continue regular diet -Continue stool softener -Patient can be discharged from surgical standpoint when medically cleared Physician Clinical Geneticist note has been reviewed by physician. Signing provider agrees with the documented findings, assessment, and plan of care. Objective - Vital Signs Vital signs: Vital Signs Temp 98.1 F 02/03/25 07:34 Pulse 99 02/03/25 11:08 Resp 16 02/03/25 07:34 BP 110/73 02/03/25 09:45 Pulse Ox 95 02/03/25 07:34 FiO2 21 01/17/25 07:56 Intake & Output 02/02/25 02/03/25 02/03/25 18:59 06:59 18:59 Other: Voiding Method Toilet Toilet Bedside Commode Bedside Commode # Voids 3 2 - Labs CBC & Chem 7: 02/03/25 05:51 02/03/25 05:51 Labs: Abnormal Lab Results - Last 24 Hours (Table) 02/02/25 02/03/25 02/03/25 Range/Units 05:02 05:51 05:51 RBC 3.59 L (4.10-5.20) X 10*6/uL Hgb 11.6 L (12.0-15.0) g/dL Hct 36.0 L (37.2-46.3) % MCV 100.3 H (80.0-97.0) FL MCH 32.3 H (27.0-32.0) pg RDW 16.5 H (11.5-14.5) % Glucose 148 H (70-110) mg/dL ALT 52 H (8-44) U/L Total Protein 5.9 L (6.2-8.2) g/dL Albumin 3.7 L (3.8-4.9) g/dL TSH 11.600 H (0.350-5.500) UIU/ML
--- NOTE | 2025-02-03 14:26 | CT ---
EXAMINATION TYPE: CT shoulder LT wo con CT DLP: 1724.0 mGycm, Automated exposure control for dose reduction was used. DATE OF EXAM: 02/03/2025 2:10 PM COMPARISON: CT chest 01/30/2025, left shoulder radiograph 12/30/2024 CLINICAL INDICATION:Female, 49 years old with history of left upper arm pain; PHH, Left shoulder pain . TECHNIQUE: Axial images were obtained of the left shoulder without the use of IV contrast. Additiona l coronal and sagittal reformatted images and soft tissue and bone window were obtained for review. FINDINGS: Acute comminuted minimally displaced fracture involving the anterior aspect of the humeral head. No dislocation. AC joint is intact. Redemonstration of subacute to chronic appearing left-sided rib fractures which are not completely fused from earlier CT chest involving the left lateral eighth through 10th ribs. Minimal lingular linear atelectasis. No visualized pneumothorax. No significant s oft tissue swelling or joint effusion is identified. No focal muscular atrophy or edema is identified . No radiopaque foreign body identified. Trace amount of gas identified within the posterior left upp er arm subcutaneous tissues. Calcified granuloma within the spleen which appears somewhat bulky. IMPRESSION: 1. Acute comminuted minimally displaced fracture involving the anterior aspect of the humeral head. No dislocation. 2. Few foci of gas identified within the posterior left upper extremity soft tissues. Possibly relat ed to IV access versus other etiologies. Correlate clinically. 3. Redemonstration of subacute to chronic left-sided rib fractures which are not completely fused. [facility], , 02/03/2025 2:23 PM
--- NOTE | 2025-02-03 15:44 | P.PAINPG ---
Objective - Vital Signs Vital signs: Vital Signs Temp 98.4 F 02/03/25 14:00 Pulse 76 02/03/25 14:00 Resp 16 02/03/25 14:00 BP 102/67 02/03/25 14:00 Pulse Ox 98 02/03/25 14:00 FiO2 21 01/17/25 07:56 Intake & Output 02/02/25 02/03/25 02/03/25 18:59 06:59 18:59 Other: Voiding Method Toilet Toilet Bedside Commode Bedside Commode # Voids 3 2 - Labs CBC & Chem 7: 02/03/25 05:51 02/03/25 05:51 Labs: Abnormal Lab Results - Last 24 Hours (Table) 02/02/25 02/03/25 02/03/25 Range/Units 05:02 05:51 05:51 RBC 3.59 L (4.10-5.20) X 10*6/uL Hgb 11.6 L (12.0-15.0) g/dL Hct 36.0 L (37.2-46.3) % MCV 100.3 H (80.0-97.0) FL MCH 32.3 H (27.0-32.0) pg RDW 16.5 H (11.5-14.5) % Glucose 148 H (70-110) mg/dL ALT 52 H (8-44) U/L Total Protein 5.9 L (6.2-8.2) g/dL Albumin 3.7 L (3.8-4.9) g/dL TSH 11.600 H (0.350-5.500) UIU/ML PQRS Measure Charge Sheet Comment: HISTORY OF PRESENT ILLNESS: A 49 yr old inpatient female as a referral from Dr Carlson presents today w severe acute BL foot pain secondary to vasculitis and early gangrene for evaluation. Pt states pain level is provoked at 7 /10 in intensity, constant, localized in the BL feet, throbbing in character without shooting pain. Also admits to neck injury, shoulder pain and back pain, specifying that Percocet onl y lasts 3 hours. When discussing the habit forming properties of pain medications, pt stated she's been on Raymond from Dr Carlson for years without a problem, despite that MAPS only shows pt receiving Raymond one time in the last two years as recent as 01/06/25. Pain is provoked by any movement. Pain is alleviated by medications (Percocet 7.5/325mg q6h prn, Tyl, ASA, Neurontin 300mg TID), repositioning and rest . PMH: OA, aFib, HTN, PE, Hypothyroidism, Pancreatitis, MDD/ Anxiety/ PTSD PSH: Appendectomy, R Wrist Surgery, L Elbow Pin SH: Daily tobacco use, Heavy Hx of ETOH use, No illicit drug use FH: Non contributory All: See list Meds: See list REVIEW OF ORGAN SYSTEMS: CONSTITUTIONAL: No fevers or chills. No recent weight loss. NEUROLOGICAL: + numbness and tingling along the distal extremities. No seizure disorders or headaches. MUSCULOSKELETAL: + pain PSYCHIATRIC: Denies current depression or suicidal thoughts. Physical Examinations : Constitutional : Cooperative , not in acute distress . Neurologic : Cranial nerve II to XII intact. No focal neurological deficits. Psychiatric : alert & oriented x 3. Matching mood & appropriate affect. Judgment & insight intact. Musculoskeletal : Cervical Spine Motor strength in the deltoid and biceps: Normal right side. Normal Left side Motor strength biceps and the wrist extensors: Normal right side . Normal left side Motor strength in the triceps muscle: Normal right side. Normal left side Deep tendon reflexes: Normal at the biceps. Normal at Brachioradialis. Normal at triceps Vertebral body tenderness to deep palpation over Cervical facet loading test: positive bilaterally Spurling test: positive bilaterally Neck distraction test: positive bilaterally Sasha sign: positive bilaterally Lumbar spine Motor strength lower extremities ,thigh and legs 5/5 Right side , 5/5 Left side Deep tendon reflexes : Normal Knee Jerk. Normal Ankle Jerk Vertebral body tenderness over Michel Test positive Lumbar facet Loading Test: positive Right / positive Left Range of motion of the lumbar spine Flexion 30 degrees, extension 10 degrees Straight Leg Raise test: Left/ Right positive at degrees Nikolai test: positive right / positive left. Severe tenderness over the Sacroiliac joint on the Right / Left sides Gaenslen test: positive bilaterally Seated flexion test: positive bilaterally. 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 Continue Percocet 7.5/325mg q6h prn pain. Per MAPS, she has not received Percocet in the last 2 years and only received Raymond 7.5/325mg #60 one time in Dec 2024. Will add Diclofenac tabs for systemic inflammation contributing to pain. Use, side effects, adverse reactio ns, safe storage discussed. All questions answered. I have spent greater than 30 minutes on patient care today. Dr Valencia was available by phone for the evaluation of this patient. The time was used to review the medical records including relevant urine studies and Prescription history (MAPs), review of the available imaging, evaluation and examination of the patient, coordination of care with the medical staff and if applicable referring physicians, as well as creation of the medical record - Pain Location Generalized Non-Pharmacological Interventions: Darkened Room, Reduce Environmental Stimuli Pharmacological Interventions: PRN Medication Left Shoulder Non-Pharmacological Interventions: Elevation, Position/Reposition, Reduce Environmental Stimuli, Relaxation Technique Pharmacological Interventions: Discuss Pain Med Options Pain Comment: see MAR PQRS Narrative: Smoking Status Current every day smoker Blood Pressure [Left Arm 108/68 Standing] Blood Pressure [Left Arm 110/73 Sitting] Blood Pressure [Left Arm 113/73 Supine] Blood Pressure [Left Arm] 102/67 Blood Pressure [Right Arm] 107/74 Blood Pressure 130/72 Pain Intensity [Left Shoulder] 8 Pain Intensity [Bilateral Toe] 8 Pain Intensity [Generalized] 8 Pain Intensity 8 Pain Scale Used [Left Shoulder Numeric (1 - 10) ] Pain Scale Used Numeric (1 - 10) Scale Used Numeric (1 - 10) Home Medications: Ambulatory Orders Nicotine 21Mg/24Hr Patch [Habitrol] 1 patch TRANSDERM DAILY #42 patch 01/18/24 Ferrous Sulfate [Iron (65 MG Elemental)] 325 mg PO DAILY 12/22/24 Bumetanide [Bumex] 1 mg PO DAILY #30 tablet 12/29/24 Gabapentin [Neurontin] 300 mg PO TID 3 Days #90 cap 12/29/24 LORazepam [Ativan] 0.5 mg PO BID PRN #20 tab 12/29/24 Levothyroxine Sodium [Euthyrox] 75 mcg PO DAILY #30 tablet 12/29/24 Metoprolol Tartrate [Lopressor] 50 mg PO BID #60 tab 12/29/24 Pantoprazole [Protonix] 40 mg PO BID #60 tab 12/29/24 Prazosin HCl [Minipress] 2 mg PO HS #30 capsule 12/29/24 Sertraline [Zoloft] 100 mg PO BID #60 tab 12/29/24 traZODone HCL [Desyrel] 50 mg PO TID PRN #90 tab 12/29/24 Budesonide/Formoterol Fumarate [Symbicort 160-4.5 Mcg Inhaler] 2 puff INHALATION RT-BID 01/08/25 HYDROcodone/APAP 7.5-325MG [[place] 7.5-325] 1 tab PO Q12H 01/08/25 Potassium Citrate [Urocit-K ER] 15 meq PO PC-BID 01/08/25 Umeclidinium [place] [Incruse Ellipta] 1 puff INHALATION RT-DAILY 01/08/25 Controlled Substance Measures - Controlled Substance Measures Is patient prescribed a controlled substance at discharge?: No
[2025-02-03] MEDS: ETODOLAC 400 MG TAB PO SCH (16:24)
--- NOTE | 2025-02-03 16:44 | P.PN ---
Subjective Progress Note Date: 02/03/25 Principal diagnosis: Reason for follow-up is right foot cellulitis Patient is a 49-year-old female with a past medical history significant for atrial fibrillation hypertension PE hypothyroidism recent admission to the hospital treated for pneumonia now presenting to the hospital concerning of bilateral big toe discoloration more on the right side with associated pain CT angiogram did not show any evidence of vascular occlusion vascular surgery is following the patient ID consulted because of ascending lymphangitis on the right side concerning for cellulitis. On today's evaluation that is 02/03/2025, patient has been afebrile, patient is breathing comfortably and is currently on 2 L nasal cannula oxygen patient denies having any significant cough no chest pain, patient denies nausea vomiting or diarrhea and no abdominal pain continued complaint of pain and d iscoloration of the toes with some bleeding on the left side. Patient white count 6.17, creatinine 0.7 Objective - Vital Signs Vital signs: Vital Signs Temp 98.1 F 02/03/25 07:34 Pulse 99 02/03/25 11:08 Resp 16 02/03/25 07:34 BP 110/73 02/03/25 09:45 Pulse Ox 95 02/03/25 07:34 FiO2 21 01/17/25 07:56 Intake & Output 02/02/25 02/03/25 02/03/25 18:59 06:59 18:59 Other: Voiding Method Toilet Toilet Bedside Commode Bedside Commode # Voids 3 2 - Exam GENERAL DESCRIPTION: Middle-age female lying in bed in no distress RESPIRATORY SYSTEM: Unlabored breathing , decreased breath sounds at bases HEART: S1 S2 regular rate and rhythm , ABDOMEN: Soft , no tenderness EXTREMITIES: Discoloration of the left big toe as well as the left second and th ird toe no purulent drainage - Labs CBC & Chem 7: 02/03/25 05:51 02/03/25 05:51 Labs: Abnormal Lab Results - Last 24 Hours (Table) 02/02/25 02/03/25 02/03/25 Range/Units 05:02 05:51 05:51 RBC 3.59 L (4.10-5.20) X 10*6/uL Hgb 11.6 L (12.0-15.0) g/dL Hct 36.0 L (37.2-46.3) % MCV 100.3 H (80.0-97.0) FL MCH 32.3 H (27.0-32.0) pg RDW 16.5 H (11.5-14.5) % Glucose 148 H (70-110) mg/dL ALT 52 H (8-44) U/L Total Protein 5.9 L (6.2-8.2) g/dL Albumin 3.7 L (3.8-4.9) g/dL TSH 11.600 H (0.350-5.500) UIU/ML Assessment and Plan (1) Cellulitis of right foot Current Visit: Yes Status: Acute Priority: High Code(s): L03.115 - CELLULITIS OF RIGHT LOWER LIMB SNOMED Code(s): 63018509533706779 (2) Thrush Current Visit: Yes Status: Acute Code(s): B37.0 - CANDIDAL STOMATITIS SNOMED Code(s): 35243264 (3) Tracheobronchitis Current Visit: No Status: Acute Code(s): J40 - BRONCHITIS, NOT SPECIFIED ACUTE OR CHRONIC SNOMED Code(s): 57157357 Plan: 1patient presented to hospital with bilateral big toe discoloration and pain in this patient who did have CT did not show any peripheral arterial disease with a question of possibly macrovascular versus Burger disease and is being followed by vascular surgery and now with concern for possible developing lymphangitis/cellulitis especially to the right foot area likely from gram- positive skin rodolfo. 2patient with a penicillin allergy that will limit the number of antibiotics safe to use. 3patient did have evidence of thrush and is complaining of persistent syndrome as well as some dysphagia concern for possible oropharyngeal candidiasis continue with Diflucan and nystatin swish and swallow patient is status post EGD with evidence of gastritis 4patient did have improvement of erythema to the dorsal aspect of bilateral feet and the patient white count is normalized 5we will treat with the daptomycin while inpatient and monitor clinical course closely Dictation was produced using [employer] dictation software. please excuse any grammatical, word or spelling errors. Time with Patient: Less than 30
--- NOTE | 2025-02-03 16:54 | P.GSCN ---
History of Present Illness History of present illness: 49-year-old white female consulted for patient has a right foot big toe dry gangrene and also patient has some gangrene changes on the left foot distal toes patient has history of A-fib, hypertension, history of PE in the past Patient had a aortogram with runoff done in the past which showed main arteries are are patent patient also has a history of smoking On examination patient was seen in the room neck is supple no bruit appreciated Chest few crackles at the lung bases. Second sound present Abdomen is protuberant no mass palpable femorals are 1+ PT DP by the Doppler right foot big toe has a dry gangrene Discussed with the patient and internal medicine patient will need right big toe amputation cleared by internal medicine Plan is right foot big toe amputation risk and complication discussed Past Medical History Past Medical History: Atrial Fibrillation, Hypertension, Pulmonary Embolus (PE), Thyroid Disorder Additional Past Medical History / Comment(s): Pt states she has an arrythmia (afib), pancreatitis and chronic back and neck pain. Herniated Disk History of Any Multi-Drug Resistant Organisms: CRE, Other MDRO Year Discovered:: 07/16/21 MDRO Source:: URINE Past Surgical History: Appendectomy, Orthopedic Surgery Additional Past Surgical History / Comment(s): titanium wrist right, abdominal exploratory open appy, left elbow pin from falling out of tree Past Anesthesia/Blood Transfusion Reactions: No Reported Reaction Past Psychological History: Anxiety, Depression, PTSD Smoking Status: Current every day smoker Past Alcohol Use History: Heavy Past Drug Use History: None Reported - Past Family History Father History Unknown: Yes Family Medical History: Osteoarthritis (OA) Medications and Allergies Home Medications Medication Instructions Recorded Confirmed Type Nicotine 21Mg/24Hr Patch [Habitrol] 1 patch TRANSDERM DAILY #42 patch 01/18/24 01/08/25 Rx Ferrous Sulfate [Iron (65 MG 325 mg PO DAILY 12/22/24 01/08/25 History Elemental)] Bumetanide [Bumex] 1 mg PO DAILY #30 tablet 12/29/24 01/08/25 Rx Gabapentin [Neurontin] 300 mg PO TID 3 Days #90 cap 12/29/24 01/08/25 Rx LORazepam [Ativan] 0.5 mg PO BID PRN #20 tab 12/29/24 01/08/25 Rx Levothyroxine Sodium [Euthyrox] 75 mcg PO DAILY #30 tablet 12/29/24 01/08/25 Rx Metoprolol Tartrate [Lopressor] 50 mg PO BID #60 tab 12/29/24 01/08/25 Rx Pantoprazole [Protonix] 40 mg PO BID #60 tab 12/29/24 01/08/25 Rx Prazosin HCl [Minipress] 2 mg PO HS #30 capsule 12/29/24 01/08/25 Rx Sertraline [Zoloft] 100 mg PO BID #60 tab 12/29/24 01/08/25 Rx traZODone HCL [Desyrel] 50 mg PO TID PRN #90 tab 12/29/24 01/08/25 Rx Budesonide/Formoterol Fumarate 2 puff INHALATION RT-BID 01/08/25 01/08/25 History [Symbicort 160-4.5 Mcg Inhaler] HYDROcodone/APAP 7.5-325MG [[place] 1 tab PO Q12H 01/08/25 01/08/25 History 7.5-325] Potassium Citrate [Urocit-K ER] 15 meq PO PC-BID 01/08/25 01/08/25 History Umeclidinium [place] [Incruse 1 puff INHALATION RT-DAILY 01/08/25 01/08/25 History Ellipta] Allergies Allergy/AdvReac Type Severity Reaction Status Date / Time Penicillins Allergy Unknown Unknown Verified 01/08/25 09:42 Childhood Surgical - Exam Vital Signs Temp Pulse Resp BP Pulse Ox 98.5 F 82 18 145/93 96 01/07/25 16:37 01/07/25 16:37 01/07/25 16:37 01/07/25 16:37 01/07/25 16:37 Results - Labs 02/03/25 05:51 02/03/25 05:51 Abnormal Lab Results - Last 24 Hours (Table) 02/02/25 02/03/25 02/03/25 Range/Units 05:02 05:51 05:51 RBC 3.59 L (4.10-5.20) X 10*6/uL Hgb 11.6 L (12.0-15.0) g/dL Hct 36.0 L (37.2-46.3) % MCV 100.3 H (80.0-97.0) FL MCH 32.3 H (27.0-32.0) pg RDW 16.5 H (11.5-14.5) % Glucose 148 H (70-110) mg/dL ALT 52 H (8-44) U/L Total Protein 5.9 L (6.2-8.2) g/dL Albumin 3.7 L (3.8-4.9) g/dL TSH 11.600 H (0.350-5.500) UIU/ML Diabetes panel 02/03/25 Range/Units 05:51 Sodium 141 (135-145) mmol/L Potassium 3.9 (3.5-5.5) mmol/L Chloride 100 (96-109) mmol/L Carbon Dioxide 29.0 (21.6-31.8) mmol/L BUN 11.5 (9.0-27.0) mg/dL Creatinine 0.7 (0.6-1.5) mg/dL Glucose 148 H (70-110) mg/dL Calcium 9.3 (8.7-10.3) mg/dL AST 33 (13-35) U/L ALT 52 H (8-44) U/L Alkaline Phosphatase 99 (41-126) U/L Total Protein 5.9 L (6.2-8.2) g/dL Albumin 3.7 L (3.8-4.9) g/dL Thyroid panel 02/02/25 Range/Units 05:02 TSH 11.600 H (0.350-5.500) UIU/ML Calcium panel 02/03/25 Range/Units 05:51 Calcium 9.3 (8.7-10.3) mg/dL Albumin 3.7 L (3.8-4.9) g/dL Pituitary panel 02/02/25 02/03/25 Range/Units 05:02 05:51 Sodium 141 (135-145) mmol/L Potassium 3.9 (3.5-5.5) mmol/L Chloride 100 (96-109) mmol/L Carbon Dioxide 29.0 (21.6-31.8) mmol/L BUN 11.5 (9.0-27.0) mg/dL Creatinine 0.7 (0.6-1.5) mg/dL Glucose 148 H (70-110) mg/dL Calcium 9.3 (8.7-10.3) mg/dL TSH 11.600 H (0.350-5.500) UIU/ML Adrenal panel 02/03/25 Range/Units 05:51 Sodium 141 (135-145) mmol/L Potassium 3.9 (3.5-5.5) mmol/L Chloride 100 (96-109) mmol/L Carbon Dioxide 29.0 (21.6-31.8) mmol/L BUN 11.5 (9.0-27.0) mg/dL Creatinine 0.7 (0.6-1.5) mg/dL Glucose 148 H (70-110) mg/dL Calcium 9.3 (8.7-10.3) mg/dL Total Bilirubin 0.3 (0.3-1.2) mg/dL AST 33 (13-35) U/L ALT 52 H (8-44) U/L Alkaline Phosphatase 99 (41-126) U/L Total Protein 5.9 L (6.2-8.2) g/dL Albumin 3.7 L (3.8-4.9) g/dL
--- NOTE | 2025-02-04 10:52 | P.PN ---
Subjective Progress Note Date: 02/04/25 SURGICAL PROGRESS NOTE CHIEF COMPLAINT: Ischemic changes of the toes HISTORY OF PRESENT ILLNESS: Patient is status post EGD reporting gastritis. Patient denies any vomiting. She has been tolerating diet. She does report bowel movements. Complaints of toe pain. She was seen by Dr. Lopez for second opinion on her toes and per nursing staff possible right great toe amputation tomorrow or . PHYSICAL EXAM: VITAL SIGNS: Reviewed. GENERAL: Well-developed in no acute distress. ABDOMEN: Soft. Nondistended. Incisional hernia soft NEUROLOGIC: Alert and oriented. Cranial nerves II through XII grossly intact. ASSESSMENT: 1. Dysphagia status post EGD revealing gastritis 2. Chronic incarcerated incisional hernia PLAN: -Recommend outpatient repair of incisional hernia -Continue regular diet -Continue stool softener -Patient can be discharged from surgical standpoint when medically cleared -Surgical service will sign off. Please call with any questions or concerns Physician [employer] note has been reviewed by physician. Signing provider agrees with the documented findings, assessment, and plan of care. Objective - Vital Signs Vital signs: Vital Signs Temp 97.8 F 02/04/25 07:50 Pulse 82 02/04/25 07:50 Resp 16 02/04/25 07:50 BP 102/69 02/04/25 07:50 Pulse Ox 93 L 02/04/25 07:50 FiO2 21 01/17/25 07:56 Intake & Output 02/03/25 02/04/25 02/04/25 18:59 06:59 18:59 Intake Total 221 Balance 221 Intake: Oral 221 Other: Voiding Method Toilet Bedside Commode # Voids 2 - Labs CBC & Chem 7: 02/03/25 05:51 02/03/25 05:51
--- NOTE | 2025-02-04 15:48 | P.PN ---
Subjective Progress Note Date: 02/04/25 Principal diagnosis: Reason for follow-up is right foot cellulitis Patient is a 49-year-old female with a past medical history significant for atrial fibrillation hypertension PE hypothyroidism recent admission to the hospital treated for pneumonia now presenting to the hospital concerning of bilateral big toe discoloration more on the right side with associated pain CT angiogram did not show any evidence of vascular occlusion vascular surgery is following the patient ID consulted because of ascending lymphangitis on the right side concerning for cellulitis. On today's evaluation that is 02/04/2025, Patient is afebrile this morning patient denies having any chest pain shortness of breath or cough, the patient is currently on room air, patient denies any abdominal pain no diarrhea no nausea no vomiting or any worsening pain to the toe area. Patient white count is 6.17 as of yesterday no CBC was done today Objective - Vital Signs Vital signs: Vital Signs Temp 97.8 F 02/04/25 07:50 Pulse 82 02/04/25 07:50 Resp 16 02/04/25 07:50 BP 102/69 02/04/25 07:50 Pulse Ox 93 L 02/04/25 07:50 FiO2 21 01/17/25 07:56 Intake & Output 02/03/25 02/04/25 02/04/25 18:59 06:59 18:59 Intake Total 221 480 Balance 221 480 Intake: Oral 221 480 Other: Voiding Method Toilet Toilet Bedside Commode Bedside Commode # Voids 2 - Exam GENERAL DESCRIPTION: Middle-age female lying in bed in no distress RESPIRATORY SYSTEM: Unlabored breathing , decreased breath sounds at bases HEART: S1 S2 regular rate and rhythm , ABDOMEN: Soft , no tenderness EXTREMITIES: Discoloration of the left big toe as well as the left second and third toe no purulent drainage - Labs CBC & Chem 7: 02/03/25 05:51 02/03/25 05:51 Assessment and Plan (1) Cellulitis of right foot Current Visit: Yes Status: Acute Priority: High Code(s): L03.115 - CELLULI TIS OF RIGHT LOWER LIMB SNOMED Code(s): 49181501576495126 (2) Thrush Current Visit: Yes Status: Acute Code(s): B37.0 - CANDIDAL STOMATITIS SNOMED Code(s): 48428545 (3) Tracheobronchitis Current Visit: No Status: Acute Code(s): J40 - BRONCHITIS, NOT SPECIFIED ACUTE OR CHRONIC SNOMED Code(s): 31681744 Plan: 1patient presented to hospital with bilateral big toe discoloration and pain in this patient who did have CT did not show any peripheral arterial disease with a question of possibly macrovascular versus Burger disease and is being followed by vascular surgery and now with concern for possible developing lymphangitis/cellulitis especially to the right foot area likely from gram-pos itive skin rodolfo. 2patient with a penicillin allergy that will limit the number of antibiotics safe to use. 3patient did have evidence of thrush and is complaining of persistent syndrome as well as some dysphagia concern for possible oropharyngeal candidiasis continue with Diflucan and nystatin swish and swallow patient is status post EGD with evidence of gastritis 4patient did have improvement of erythema to the dorsal aspect of bilateral feet and the patient white count is normalized, vascular surgery has been consulted for amputation of the necrotic toe for now continue with the daptomy kota while inpatient Dictation was produced using [employer] dictation software. please excuse any gramm atical, word or spelling errors. Time with Patient: Less than 30
--- NOTE | 2025-02-05 08:15 | PN ---
PROGRESS NOTE SUBJECTIVE: Had a consult with Dr. Lopez today. Says she needs her great toe removed due to ischemic gangrene with gangrene at this point, have a big toe amputation of the one foot. He is going to talk to Dr. Lynne whether he does it or she does it. OBJECTIVE: VITAL SIGNS: Blood pressures improved 110 to 102 over 60s to 70s, pulse 80 to 70, temp 98.1. CARDIOVASCULAR: S1, S2. LUNGS: Transmitted upper sounds. GI: Soft. LABORATORY DATA: White count 6.17, hemoglobin is 11.6, sodium is 141, potassium 3.9. I increased her Bumex due to peripheral edema yesterday. The swelling appears to be improved. Thyroid is elevated and most likely we will have to increase her thyroid dose. Continue current treatment. Prognosis guarded. Possible amputation depending on while she is here prior to going to rehab center. Pain clinic doctor consult is pending. CAT scan of the left shoulder is pending as she had a recent humeral fracture. She wants that rechecked for healing after 2 to 3 weeks without wearing a sling. MMODL / IJN: [id number] /
--- NOTE | 2025-02-05 10:12 | PN ---
PROGRESS NOTE DATE OF SERVICE: 02/04/2025 SUBJECTIVE: A 49-year-old white female with gangrene of the feet due to Buerger's disease. She is scheduled for amputation of the toe maybe tomorrow depending on apparently Dr. Lopez wants to do another arteriogram for Buerger's disease. Vasculitis with possible amputation. CHF is stable. Recent pneumonia and COPD are stable. Still has large amount of fluid build up, slightly improved with increased Bumex. OBJECTIVE: PSYCH: Fair mood and affect. CARDIOVASCULAR: S1, S2. LUNGS: Transmitted upper sounds. NEUROLOGIC: Alert and oriented x3. ASSESSMENT: Pain medicine from Percocet to [place] per patient's request. Wait for Dr. Lopez to do amputation tomorrow. MMODL / IJN: [id number] /
--- NOTE | 2025-02-05 11:21 | PN ---
PROGRESS NOTE A 49-year-old white female with Buerger's syndrome, gangrene to the toes. Dr. Tuttle is ordering angiography with possible amputation later today. Labs are pending for today. Last hemoglobin is 11.6. CBC: White blood cell count 6.17. BUN and creatinine are 11.5 and 0.7. OBJECTIVE: CARDIOVASCULAR: S1 and S2. LUNGS: Transmitted upper airway sounds. HEMATOLOGY: Negative for [place]. PSYCHIATRIC: Fair mood and affect. PLAN: Continue current treatments for Buerger's disease COPD, pneumonia, alcohol dependence, diastolic heart failure. Prognosis is guarded. Pain control for the gangrenous toes in PAD was switched from Percocet 10 q.6 to [place] 10 q.6h p.o. Possible discharge after amputation and clearance by Dr. Lopez. Please see further orders. MMODL / IJN: [id number] /
[2025-02-05] MEDS: HYDROcodone/APAP 10-325MG 1 EACH TAB PO PRN (12:40)
--- NOTE | 2025-02-05 17:52 | P.PN ---
Subjective Progress Note Date: 02/05/25 Principal diagnosis: Reason for follow-up is right foot cellulitis Patient is a 49-year-old female with a past medical history significant for atrial fibrillation hypertension PE hypothyroidism recent admission to the hospital treated for pneumonia now presenting to the hospital concerning of bilateral big toe discoloration more on the right side with associated pain CT angiogram did not show any evidence of vascular occlusion vascular surgery is following the patient ID consulted because of ascending lymphangitis on the right side concerning for cellulitis. On today's evaluation that is 02/05/2025,the patient denies any fever or any chills, patient is breathing comfortably on room air, the patient denies chest pain shortness of breath and no significant cough, patient denies abdominal pain, no nausea vomiting or diarrhea pain to bilateral feet/toes area is currently controlled redness has decreased. No new lab has been obtained today. Objective - Vital Signs Vital signs: Vital Signs Temp 98.9 F 02/05/25 08:25 Pulse 76 02/05/25 13:02 Resp 18 02/05/25 08:25 BP 118/76 02/05/25 08:25 Pulse Ox 92 L 02/05/25 08:25 FiO2 21 01/17/25 07:56 Intake & Output 02/04/25 02/05/25 02/05/25 18:59 06:59 18:59 Intake Total 960 Balance 960 Intake: Oral 960 Other: Voiding Method Toilet Toilet Toilet Bedside Commode # Voids 4 - Exam GENERAL DESCRIPTION: Middle-age female lying in bed in no distress RESPIRATORY SYSTEM: Unlabored breathing , decreased breath sounds at bases HEART: S1 S2 regular rate and rhythm , ABDOMEN: Soft , no tenderness EXTREMITIES: Discoloration of the left big toe as well as the left second and third toe no purulent drainage - Labs CBC & Chem 7: 02/03/25 05:51 02/03/25 05:51 Assessment and Plan (1) Cellulitis of right foot Current Visit: Yes Status: Acute Priority: High Code(s): L03.115 - CELLULITIS OF RIGHT LOWER LIMB SNOMED Code(s): 23238482682214612 (2) Thrush Current Visit: Yes Status: Acute Code(s): B37.0 - CANDIDAL STOMATITIS SNOMED Code(s): 38589961 (3) Tracheobronchitis Current Visit: No Status: Acute Code(s): J40 - BRONCHITIS, NOT SPECIFIED ACUTE OR CHRONIC SNOMED Code(s): 87699126 Plan: 1patient presented to hospital with bilateral big toe discoloration and pain in this patient who did have CT did not show any peripheral arterial disease with a question of possibly macrovascular versus Burger disease and is being followed by vascular surgery and now with concern for possible developing lymphangitis/cellulitis especially to the right foot area likely from gram- positive skin rodolfo. 2patient with a penicillin allergy that will limit the number of antibiotics safe to use. 3patient did have evidence of thrush and is complaining of persistent syndrome as well as some dysphagia concern for possible oropharyngeal candidiasis continue with Diflucan and nystatin swish and swallow patient is status post EGD with evidence of gastritis 4patient did have improvement of erythema to the dorsal aspect of bilateral feet and the patient white count is normalized, vascular surgery has been consulted for amputation of the necrotic toe scheduled for this afternoon culture should be obtained if that is suspicious for infection 5we will continue with the daptomycin while inpatient Dictation was produced using [employer] dictation software. please excuse any grammatical, word or spelling errors. Time with Patient: Less than 30
[2025-02-05] MEDS: MIDAZOLAM 2 MG/2 ML VIAL IVP ONE (18:32)
[2025-02-05] MEDS: LIDOCAINE 1% INJ 10MG/ML (20 ML MDV) SQ ONE (18:33)
[2025-02-05] MEDS: SODIUM CHLORIDE 0.9% 250 ML IV ONE (18:37)
[2025-02-05] MEDS: IOPAMIDOL-370 100ML BTL INJ ONE (18:42)
[2025-02-05] MEDS ORDERED: NALOXONE 0.4 MG/ML 1 ML VIAL IVP PRN (18:45)
--- NOTE | 2025-02-05 18:48 | P.PCN ---
Date of Procedure: 02/05/25 Operative Findings: Right lower extremity arterial angiogram Performing physician Edmund Irizarry MD Procedure performed 1. Right lower extremity angiogram 2. Ultrasound-guided access of the right common femoral artery Indication CLI of the right lower extremity Approach Right common femoral artery Complication None Level of sedation Moderate with sedation length of 9 minutes Procedure scription Obtaining informed consent the patient was brought to the cardiac [place] with right common femoral artery was cannulated using micropuncture technique under ultrasound guidance a micropuncture wire passed easily then I placed a 4 Swedish 11 cm sheath at the right common femoral artery. Subsequently I did manual injection of contrast through the sheath to assess the arteries below the knee on the right side. The procedure was completed with no complication and the sheath was removed with manual pressure on the right groin Selective peripheral angiogram The angiogram showed patent right popliteal and patent anterior tibial and posterior tibial and peroneal arteries all the way to the right foot. Conclusion Patent vessels below the knee on the right side Postprocedure management The patient to be seen by Dr. Lopez.
--- NOTE | 2025-02-05 19:15 | IR ---
EXAMINATION TYPE: IR angio lower extremity RT DATE OF EXAM: 02/05/2025 CLINICAL INDICATION: Female, 49 years old with history of PVD, TECHNIQUE: Fluoroscopy. COMPARISON: None. FINDINGS: Fluoroscopic guidance was provided during right lower extremity angiogram procedure perfor med by Dr. Irizarry. A total of 72 seconds of fluoroscopic time was utilized during the procedure and 88 spot images was acquired. TOTAL DAP = 0.439 Gycm2. IMPRESSION: As Above. [facility], , 02/05/2025 7:13 PM
[2025-02-05] MEDS: GABAPENTIN 300 MG CAP PO SCH (20:06)
[2025-02-05] MEDS: SODIUM CHLORIDE 0.9% 1,000 ML in EMPTY BAG 1 BAG IV SCH (20:13)
[2025-02-06 08:38] LABS: ALT 41 U/L (8-44); AST 29 U/L (13-35); Albumin 3.2 g/dL (3.8-4.9); Albumin/Globulin Ratio 1.78 Ratio (1.60-3.17); Alkaline Phosphatase 88 U/L (41-126); BUN/Creat Ratio 13.71 Ratio (12.00-20.00); Blood Urea Nitrogen 9.6 mg/dL (9.0-27.0); Calcium 8.8 mg/dL (8.7-10.3); Carbon Dioxide 29.3 mmol/L (21.6-31.8); Chloride 103 mmol/L (96-109); Globulin 1.8 g/dL (1.6-3.3); Glucose 133 mg/dL (70-110); Potassium 3.4 mmol/L (3.5-5.5); Sodium 142 mmol/L (135-145); Total Bilirubin 0.3 mg/dL (0.3-1.2)
[2025-02-06 08:39] LABS: Basophils # (A) 0.01 X 10*3/uL (0.00-0.10); Basophils % (A) 0.2 %; Eosinophils # (A) 0.11 X 10*3/uL (0.04-0.35); Eosinophils % (A) 2.7 %; HCT 31.1 % (37.2-46.3); HGB 9.8 g/dL (12.0-15.0); Lymphocytes # (A) 1.11 X 10*3/uL (0.90-5.00); Lymphocytes % (A) 27.2 %; MCH 31.4 pg (27.0-32.0); MCHC 31.5 g/dL (32.0-37.0); MCV 99.7 FL (80.0-97.0); Mean Platelet Volume 10.3 FL (9.5-12.2); Monocytes # (A) 0.41 X 10*3/uL (0.20-1.00); NRBC Per 100 WBC 0 X 10*3/uL (0.00-0.01); Neutrophils # (A) 2.43 X 10*3/uL (1.80-7.70); Neutrophils % (A) 59.7 %; Platelet Count 163 X 10*3/uL (140-440); RBC 3.12 X 10*6/uL (4.10-5.20); RDW 16.7 % (11.5-14.5); WBC 4.08 X 10*3/uL (4.50-10.00)
--- NOTE | 2025-02-06 14:43 | P.PN ---
Subjective Progress Note Date: 02/06/25 Principal diagnosis: Reason for follow-up is right foot cellulitis Patient is a 49-year-old female with a past medical history significant for atrial fibrillation hypertension PE hypothyroidism recent admission to the hospital treated for pneumonia now presenting to the hospital concerning of bilateral big toe discoloration more on the right side with associated pain CT angiogram did not show any evidence of vascular occlusion vascular surgery is following the patient ID consulted because of ascending lymphangitis on the right side concerning for cellulitis. On today's evaluation that is 02/06/2025,the patient remains to be afebrile, patient is on room air not requiring supplemental oxygen and denies any shortness of breath no chest pain or cough.Patient denies having any nausea or vomiting, no abdominal pain and no diarrhea pain to the toe is currently con trolled. Patient white count is 4.08, creatinine 0.7 Objective - Vital Signs Vital signs: Vital Signs Temp 97.6 F 02/06/25 14:00 Pulse 67 02/06/25 14:00 Resp 17 02/06/25 14:00 BP 97/65 02/06/25 14:00 Pulse Ox 100 02/06/25 14:00 FiO2 21 01/17/25 07:56 Intake & Output 02/05/25 02/06/25 02/06/25 18:59 06:59 18:59 Intake Total 50 118 Balance 50 118 Intake: IV 50 Oral 118 Other: Voiding Method Toilet Toilet Toilet # Voids 2 2 # Bowel Movements 0 - Exam GENERAL DESCRIPTION: Middle-age female lying in bed in no distress RESPIRATORY SYSTEM: Unlabored breathing , decreased breath sounds at bases HEART: S1 S2 regular rate and rhythm , ABDOMEN: Soft , no tenderness EXTREMITIES: Discoloration of the left big toe as well as the left second and third toe no purulent drainage - Labs CBC & Chem 7: 02/06/25 05:36 02/06/25 05:36 Labs: Abnormal Lab Results - Last 24 Hours (Table) 02/06/25 02/06/25 Range/Units 05:36 05:36 WBC 4.08 L (4.50-10.00) X 10*3/uL RBC 3.12 L (4.10-5.20) X 10*6/uL Hgb 9.8 L (12.0-15.0) g/dL Hct 31.1 L (37.2-46.3) % MCV 99.7 H (80.0-97.0) FL MCHC 31.5 L (32.0-37.0) g/dL RDW 16.7 H (11.5-14.5) % Potassium 3.4 L (3.5-5.5) mmol/L Glucose 133 H (70-110) mg/dL Total Protein 5.0 L (6.2-8.2) g/dL Albumin 3.2 L (3.8-4.9) g/dL Assessment and Plan (1) Cellulitis of right foot Current Visit: Yes Status: Acute Priority: High Code(s): L03.115 - CELLULITIS OF RIGHT LOWER LIMB SNOMED Code(s): 57084556434627762 (2) Thrush Current Visit: Yes Status: Acute Code(s): B37.0 - CANDIDAL STOMATITIS SNOMED Code(s): 25329146 (3) Tracheobronchitis Current Visit: No Status: Acute Code(s): J40 - BRONCHITIS, NOT SPECIFIED ACUTE OR CHRONIC SNOMED Code(s): 55776766 Plan: 1patient presented to hospital with bilateral big toe discoloration and pain in this patient who did have CT did not show any peripheral arterial disease with a question of possibly macrovascular versus Burger disease and is being followed by vascular surgery and now with concern for possible developing lymphangitis/cellulitis especially to the right foot area likely from gram- positive skin rodolfo. 2patient with a penicillin allergy that will limit the number of antibiotics safe to use. 3patient did have evidence of thrush and is complaining of persistent syndrome as well as some dysphagia concern for possible oropharyngeal candidiasis contin ue with Diflucan and nystatin swish and swallow patient is status post EGD with evidence of gastritis 4patient did have improvement of erythema to the dorsal aspect of bilateral feet and the patient white count is normalized, 5plan is for amputation of the necrotic big toe tomorrow Case was discussed with the vascular surgeon if any purulent drainage to culture it for now continue with the daptomycin while inpatient Dictation was produced using [employer] dictation software. please excuse any gra mmatical, word or spelling errors. Time with Patient: Less than 30
[2025-02-07] MEDS: LACTATED RINGERS 1,000 ML IV SCH (12:41)
[2025-02-07] MEDS: ONDANSETRON 4 MG/2 ML VIAL IVP STA (13:41)
[2025-02-07] MEDS: IV FLUID CONTINUATION 1,000 ML IV ONE (13:43)
[2025-02-07] MEDS ORDERED: KETAMINE HCL IN 0.9 % NACL 50 MG/5 ML SYRINGE ONE (13:53)
[2025-02-07] MEDS ORDERED: PROPOFOL 10 MG/ML 20 ML VIAL IV ONE (13:53)
[2025-02-07] MEDS ORDERED: HYDROmorphone (PF) 1 MG/ML ONE (13:53)
[2025-02-07] MEDS ORDERED: fentaNYL (PF) 50 MCG/ML 2 ML AMP ONE (13:53)
[2025-02-07] MEDS ORDERED: MIDAZOLAM 2 MG/2 ML VIAL ONE (13:53)
[2025-02-07] MEDS ORDERED: LIDOCAINE 1% INJ 10MG/ML (20 ML MDV) ONE (13:53)
[2025-02-07] MEDS: SODIUM CHLORIDE 0.9% 50 ML with ceFAZolin 2,000 MG IV ONE (13:58)
[2025-02-07] MEDS: LIDOCAINE 1% INJ 10MG/ML (20 ML MDV) SQ ONE (14:52)
--- NOTE | 2025-02-07 23:45 | P.PN ---
Subjective Progress Note Date: 02/07/25 Principal diagnosis: Reason for follow-up is right foot cellulitis Patient is a 49-year-old female with a past medical history significant for atrial fibrillation hypertension PE hypothyroidism recent admission to the hospital treated for pneumonia now presenting to the hospital concerning of bilateral big toe discoloration more on the right side with associated pain CT angiogram did not show any evidence of vascular occlusion vascular surgery is following the patient ID consulted because of ascending lymphangitis on the right side concerning for cellulitis.Patient is status post amputation of the right big toe by vascular surgery on 01/30/2025 On today's evaluation that is 02/07/2025, the patient continues to be afebrile, the patient is on room air and breathing comfortably, the Pt denies having any chest pain or cough, the patient denies having any abdominal pain no vomiting or any diarrhea, pain to the right foot is currently controlled. No new labs ordered on today Objective - Vital Signs Vital signs: Vital Signs Temp 99.1 F 02/07/25 07:47 Pulse 80 02/07/25 07:47 Resp 17 02/07/25 07:47 BP 126/80 02/07/25 07:47 Pulse Ox 97 02/07/25 07:47 FiO2 21 01/17/25 07:56 Intake & Output 02/06/25 02/07/25 02/07/25 18:59 06:59 18:59 Intake Total 118 Balance 118 Intake: Oral 118 Other: Voiding Method Toilet Toilet Toilet # Voids 2 5 - Exam GENERAL DESCRIPTION: Middle-age female lying in bed in no distress RESPIRATORY SYSTEM: Unlabored breathing , decreased breath sounds at bases HEART: S1 S2 regular rate and rhythm , ABDOMEN: Soft , no tenderness EXTREMITIES: Right foot is currently dressed - Labs CBC & Chem 7: 02/06/25 05:36 02/06/25 05:36 Assessment and Plan (1) Cellulitis of right foot Current Visit: Yes Status: Acute Priority: High Code(s): L03.115 - CELLULITIS OF RIGHT LOWER LIMB SNOMED Code(s): 89043889088652833 (2) Thrush Current Visit: Yes Status: Acute Code(s): B37.0 - CANDIDAL STOMATITIS SNOMED Code(s): 87573256 (3) Tracheobronchitis Current Visit: No Status: Acute Code(s): J40 - BRONCHITIS, NOT SPECIFIED ACUTE OR CHRONIC SNOMED Code(s): 96378473 (4) Ischemic necrosis of toe Current Visit: Yes Status: Acute Code(s): I96 - GANGRENE, NOT ELSEWHERE CLASSIFIED SNOMED Code(s): 512245841 Plan: 1patient presented to hospital with bilateral big toe discoloration and pain in this patient who did have CT did not show any peripheral arterial disease with a question of possibly macrovascular versus Burger disease and is being followed by vascular surgery and now with concern for possible developing lymphangitis/cellulitis especially to the right foot area likely from gram- positive skin rodolfo. 2patient with a penicillin allergy that will limit the number of antibiotics safe to use. 3patient did have evidence of thrush and is complaining of persistent syndrome as well as some dysphagia concern for possible oropharyngeal candidiasis continue with Diflucan and nystatin swish and swallow patient is status post EGD with evidence of gastritis 4patient did have improvement of erythema to the dorsal aspect of bilateral feet and the patient white count is normalized, 5patient is status post amputation of the necrotic right big toe and cultures have been obtained we will continue with daptomycin while inpatient and monitor clinical course closely Dictation was produced using [employer] dictation software. please excuse any grammatical, word or spelling errors. Time with Patient: Less than 30
[2025-02-08] MEDS: HYDROmorphone 1 MG/ML 1 ML SYRINGE IVP PRN (04:25)
[2025-02-08] MEDS ORDERED: HYDROmorphone 0.5 MG/0.5 ML SYRINGE IVP PRN (07:00)
--- NOTE | 2025-02-08 10:12 | P.GSCN ---
History of Present Illness History of present illness: 49-year-old white female history of Buerger's disease right and left foot toes are involved right foot big toe gangrene changes patient had a right foot is big toe amputation done yesterday today we have changed the dressing no drainage noted patient is an IV antibiotic under care of infectious disease patient will be on IV antibiotic nonweightbearing incision site looks okay Past Medical History Past Medical History: Atrial Fibrillation, Hypertension, Pulmonary Embolus (PE), Thyroid Disorder Additional Past Medical History / Comment(s): Pt states she has an arrythmia (afib), pancreatitis and chronic back and neck pain. Herniated Disk History of Any Multi-Drug Resistant Organisms: CRE, Other MDRO Year Discovered:: 07/16/21 MDRO Source:: URINE Past Surgical History: Appendectomy, Orthopedic Surgery Additional Past Surgical History / Comment(s): titanium wrist right, abdominal exploratory open appy, left elbow pin from falling out of tree Past Anesthesia/Blood Transfusion Reactions: No Reported Reaction Past Psychological History: Anxiety, Depression, PTSD Smoking Status: Current every day smoker Past Alcohol Use History: Heavy Past Drug Use History: None Reported - Past Family History Father History Unknown: Yes Family Medical History: Osteoarthritis (OA) Medications and Allergies Home Medications Medication Instructions Recorded Confirmed Type Nicotine 21Mg/24Hr Patch [Habitrol] 1 patch TRANSDERM DAILY #42 patch 01/18/24 01/08/25 Rx Ferrous Sulfate [Iron (65 MG 325 mg PO DAILY 12/22/24 01/08/25 History Elemental)] Bumetanide [Bumex] 1 mg PO DAILY #30 tablet 12/29/24 01/08/25 Rx Gabapentin [Neurontin] 300 mg PO TID 3 Days #90 cap 12/29/24 01/08/25 Rx LORazepam [Ativan] 0.5 mg PO BID PRN #20 tab 12/29/24 01/08/25 Rx Levothyroxine Sodium [Euthyrox] 75 mcg PO DAILY #30 tablet 12/29/24 01/08/25 Rx Metoprolol Tartrate [Lopressor] 50 mg PO BID #60 tab 12/29/24 01/08/25 Rx Pantoprazole [Protonix] 40 mg PO BID #60 tab 12/29/24 01/08/25 Rx Prazosin HCl [Minipress] 2 mg PO HS #30 capsule 12/29/24 01/08/25 Rx Sertraline [Zoloft] 100 mg PO BID #60 tab 12/29/24 01/08/25 Rx traZODone HCL [Desyrel] 50 mg PO TID PRN #90 tab 12/29/24 01/08/25 Rx Budesonide/Formoterol Fumarate 2 puff INHALATION RT-BID 01/08/25 01/08/25 History [Symbicort 160-4.5 Mcg Inhaler] HYDROcodone/APAP 7.5-325MG [[place] 1 tab PO Q12H 01/08/25 01/08/25 History 7.5-325] Potassium Citrate [Urocit-K ER] 15 meq PO PC-BID 01/08/25 01/08/25 History Umeclidinium [place] [Incruse 1 puff INHALATION RT-DAILY 01/08/25 01/08/25 History Ellipta] Allergies Allergy/AdvReac Type Severity Reaction Status Date / Time Penicillins Allergy Unknown Unknown Verified 01/08/25 09:42 Childhood Surgical - Exam Vital Signs Temp Pulse Resp BP Pulse Ox 98.5 F 82 18 145/93 96 01/07/25 16:37 01/07/25 16:37 01/07/25 16:37 01/07/25 16:37 01/07/25 16:37 Results - Labs 02/06/25 05:36 02/06/25 05:36
--- NOTE | 2025-02-08 15:49 | P.PN ---
Subjective Progress Note Date: 02/08/25 Principal diagnosis: Reason for follow-up is right foot cellulitis Patient is a 49-year-old female with a past medical history significant for atrial fibrillation hypertension PE hypothyroidism recent admission to the hospital treated for pneumonia now presenting to the hospital concerning of bilateral big toe discoloration more on the right side with associated pain CT angiogram did not show any evidence of vascular occlusion vascular surgery is following the patient ID consulted because of ascending lymphangitis on the right side concerning for cellulitis.Patient is status post amputation of the right big toe by vascular surgery on 01/30/2025 On today's evaluation that is 02/08/2025, patient did not have any fever and denies any chills, patient is breathing comfortably on room air, patient with no chest pain or cough patient did not have any abdominal pain nausea vomiting or any loose stools, pain to the right big toe potation site is currently controlle d. No new lab has been obtained today right big toe cultures currently pending Objective - Vital Signs Vital signs: Vital Signs Temp 98.2 F 02/08/25 14:25 Pulse 71 02/08/25 14:25 Resp 16 02/08/25 14:25 BP 99/65 02/08/25 14:25 Pulse Ox 90 L 02/08/25 14:25 FiO2 21 01/17/25 07:56 Intake & Output 02/07/25 02/08/25 02/08/25 18:59 06:59 18:59 Intake Total 650 1080 222 Output Total 10 Balance 640 1080 222 Intake: IV 650 Oral 1080 222 Output: Estimated Blood Loss 10 Other: Voiding Method Toilet External Catheter External Catheter # Voids 2 2 2 # Bowel Movements 0 - Exam GENERAL DESCRIPTION: Middle-age female lying in bed in no distress RESPIRATORY SYSTEM: Unlabored breathing , decreased breath sounds at bases HEART: S1 S2 regular rate and rhythm , ABDOMEN: Soft , no tenderness EXTREMITIES: Right foot is currently dressed - Labs CBC & Chem 7: 02/06/25 05:36 02/06/25 05:36 Labs: Microbiology - Last 24 Hours (Table) 02/07/25 14:21 Gram Stain - Preliminary Toe - Right First Assessment and Plan (1) Cellulitis of right foot Current Visit: Yes Status: Acute Priority: High Code(s): L03.115 - CELLULITIS OF RIGHT LOWER LIMB SNOMED Code(s): 94701386834873361 (2) Thrush Current Visit: Yes Status: Acute Code(s): B37.0 - CANDIDAL STOMATITIS SNOMED Code(s): 10227695 (3) Tracheobronchitis Current Visit: No Status: Acute Code(s): J40 - BRONCHITIS, NOT SPECIFIED ACUTE OR CHRONIC SNOMED Code(s): 56150170 (4) Ischemic necrosis of toe Current Visit: Yes Status: Acute Code(s): I96 - GANGRENE, NOT ELSEWHERE CLASSIFIED SNOMED Code(s): 484813992 Plan: 1patient presented to hospital with bilateral big toe discoloration and pain in this patient who did have CT did not show any peripheral arterial disease with a question of possibly macrovascular versus Burger disease and is being followed by vascular surgery and now with concern for possible developing lymphan gitis/cellulitis especially to the right foot area likely from gram-positive skin rodolfo. 2patient with a penicillin allergy that will limit the number of antibiotics safe to use. 3patient did have evidence of thrush and is complaining of persistent syndrome as well as some dysphagia concern for possible oropharyngeal candidiasis continue with Diflucan and nystatin swish and swallow patient is status post EGD with evidence of gastritis 4patient did have improvement of erythema to the dorsal aspect of bilateral feet and the patient white count is normalized, 5patient is status post amputation of the necrotic right big toe and cultures have been obtained which are currently pending 6we will continue with daptomycin while waiting for the OR culture to finalize Dictation was produced using [email or web address] dictation software. please excuse any grammatical, word or spelling errors. Time with Patient: Less than 30
[2025-02-09 09:48] LABS: HCT 33.4 % (37.2-46.3); HGB 10.4 g/dL (12.0-15.0); MCH 31.5 pg (27.0-32.0); MCHC 31.1 g/dL (32.0-37.0); MCV 101.2 FL (80.0-97.0); Mean Platelet Volume 10.3 FL (9.5-12.2); NRBC Per 100 WBC 0 X 10*3/uL (0.00-0.01); Platelet Count 215 X 10*3/uL (140-440); RDW 16.6 % (11.5-14.5); WBC 4.39 X 10*3/uL (4.50-10.00)
[2025-02-09 10:00] LABS: Blood Urea Nitrogen 8.4 mg/dL (9.0-27.0); Chloride 104 mmol/L (96-109); Glucose 112 mg/dL (70-110); Sodium 141 mmol/L (135-145)
[2025-02-09 10:01] LABS: ALT 37 U/L (8-44); AST 34 U/L (13-35); Albumin 3.5 g/dL (3.8-4.9); Albumin/Globulin Ratio 1.84 Ratio (1.60-3.17); Alkaline Phosphatase 96 U/L (41-126); Calcium 8.9 mg/dL (8.7-10.3); Carbon Dioxide 27.3 mmol/L (21.6-31.8); Globulin 1.9 g/dL (1.6-3.3); Total Bilirubin 0.3 mg/dL (0.3-1.2); Total Protein 5.4 g/dL (6.2-8.2)
[2025-02-09 10:55] LABS: Basophils # (A) 0.02 X 10*3/uL (0.00-0.10); Basophils % (A) 0.5 %; Eosinophils # (A) 0.15 X 10*3/uL (0.04-0.35); Eosinophils % (A) 3.4 %; Lymphocytes % (A) 34.2 %; Monocytes # (A) 0.38 X 10*3/uL (0.20-1.00); Monocytes % (A) 8.7 %; Neutrophils # (A) 2.33 X 10*3/uL (1.80-7.70)
--- NOTE | 2025-02-09 12:36 | P.PN ---
Subjective Progress Note Date: 02/09/25 Principal diagnosis: Reason for follow-up is right foot cellulitis Patient is a 49-year-old female with a past medical history significant for atrial fibrillation hypertension PE hypothyroidism recent admission to the hospital treated for pneumonia now presenting to the hospital concerning of bilateral big toe discoloration more on the right side with associated pain CT angiogram did not show any evidence of vascular occlusion vascular surgery is following the patient ID consulted because of ascending lymphangitis on the right side concerning for cellulitis.Patient is status post amputation of the right big toe by vascular surgery on 01/30/2025 On today's evaluation that is 02/09/2025, Patient is afebrile patient is currently on 2 L current oxygen and denies having any shortness of breath, the patient denies any chest pain or cough, the patient denies any nausea vomiting did not have any abdominal pain and no diarrhea, pain to the right foot is currently controlled. Patient did have white count of 4.39 creatinine 0.7 cultures currently pending Objective - Vital Signs Vital signs: Vital Signs Temp 98.2 F 02/09/25 07:10 Pulse 72 02/09/25 07:10 Resp 18 02/09/25 07:10 BP 104/71 02/09/25 07:10 Pulse Ox 96 02/09/25 07:10 FiO2 21 01/17/25 07:56 Intake & Output 02/08/25 02/09/25 02/09/25 18:59 06:59 18:59 Intake Total 444 540 Balance 444 540 Intake: Oral 444 540 Other: Voiding Method External Catheter Bedside Commode Bedside Commode # Voids 2 2 # Bowel Movements 0 - Exam GENERAL DESCRIPTION: Middle-age female lying in bed in no distress RESPIRATORY SYSTEM: Unlabored breathing , decreased breath sounds at bases HEART: S1 S2 regular rate and rhythm , ABDOMEN: Soft , no tenderness EXTREMITIES: Right foot is currently dressed - Labs CBC & Chem 7: 02/09/25 05:49 02/09/25 05:49 Labs: Abnormal Lab Results - Last 24 Hours (Table) 02/09/25 02/09/25 Range/Units 05:49 05:49 WBC 4.39 L (4.50-10.00) X 10*3/uL RBC 3.30 L (4.10-5.20) X 10*6/uL Hgb 10.4 L (12.0-15.0) g/dL Hct 33.4 L (37.2-46.3) % MCV 101.2 H (80.0-97.0) FL MCHC 31.1 L (32.0-37.0) g/dL RDW 16.6 H (11.5-14.5) % BUN 8.4 L (9.0-27.0) mg/dL Glucose 112 H (70-110) mg/dL Total Protein 5.4 L (6.2-8.2) g/dL Albumin 3.5 L (3.8-4.9) g/dL Microbiology - Last 24 Hours (Table) 02/07/25 14:21 Gram Stain - Preliminary Toe - Right First Tissue Culture - Preliminary Assessment and Plan (1) Cellulitis of right foot Current Visit: Yes Status: Acute Priority: High Code(s): L03.115 - CELLULITIS OF RIGHT LOWER LIMB SNOMED Code(s): 19119247808936912 (2) Thrush Current Visit: Yes Status: Acute Code(s): B37.0 - CANDIDAL STOMATITIS SNOMED Code(s): 33864277 (3) Tracheobronchitis Current Visit: No Status: Acute Code(s): J40 - BRONCHITIS, NOT SPECIFIED ACUTE OR CHRONIC SNOMED Code(s): 02172413 (4) Ischemic necrosis of toe Current Visit: Yes Status: Acute Code(s): I96 - GANGRENE, NOT ELSEWHERE CLASSIFIED SNOMED Code(s): 406086415 Plan: 1patient presented to hospital with bilateral big toe discoloration and pain in this patient who did have CT did not show any peripheral arterial disease with a question of possibly macrovascular versus Burger disease and is being followed b y vascular surgery and now with concern for possible developing lymphangitis/cellulitis especially to the right foot area likely from gram- positive skin rodolfo. 2patient with a penicillin allergy that will limit the number of antibiotics safe to use. 3patient did have evidence of thrush and is complaining of persistent syndrome as well as some dysphagia concern for possible oropharyngeal candidiasis treated with a course of Diflucan and nystatin swish and swallow 4patient did have improvement of erythema to the dorsal aspect of bilateral feet and the patient white count is normalized, 5patient is status post amputation of the necrotic right big toe and cultures have been obtained which are currently pending 6patient remains to be afebrile white count has been normal, currently on da ptomycin while waiting for the OR culture to finalize to determine discharge antibiotics Dictation was produced using [employer] dictation software. please excuse any grammatical, word or spelling errors. Time with Patient: Less than 30
--- NOTE | 2025-02-10 14:20 | OP ---
OPERATIVE REPORT DATE OF SERVICE : 02/07/2025 PREOPERATIVE DIAGNOSIS: Gangrene of the left foot big toe. POSTOPERATIVE DIAGNOSIS: Gangrene of the left foot big toe. PROCEDURE PERFORMED: Amputation of the left foot big toe at metatarsophalangeal joint. INDICATIONS: This patient has a gangrene of the left foot. DESCRIPTION OF PROCEDURE: The patient was brought to the operating room. foot was prepped and draped in the usual sterile manner. 1% lidocaine plain infiltrated and then IV sedation, incision was made on the dorsal aspect of the foot. Circular incision deepened through the skin fat and fascia and tendons were divided. Then, this incision was carried down to the plantar aspect of the foot, deepened through skin, fat, fascia, and the tendons were divided till we reached the metatarsophalangeal joint, which was suture ligated. Ligaments divided at the metatarsophalangeal joint, and big toe was removed which was sent for deep culture. Hemostasis is well controlled. Wound was copiously irrigated with hydrogen peroxide and saline. Incision was closed in 2 layers using 0 Vicryl, and skin was closed with 3-0 nylon with mattress interrupted suture. Dressing applied. The patient tolerated the procedure well. MMODL / IJN: [id number] / JOYCELYN
--- NOTE | 2025-02-10 14:21 | PN ---
PROGRESS NOTE Status post right foot toe amputation today. I gave her something stronger for foot pain. PHYSICAL EXAMINATION: CARDIOVASCULAR: S1 and S2. LUNGS: Transmitted upper airway sounds. GI: Soft. HEMATOLOGY: Negative for Homans. Vancomycin. Continue current treatments for Buerger's disease, vasculitis, wound healing of the toe. PT and OT. Possibly go home soon. COPD, alcohol dependence. Prognosis is guarded. Continue to watch electrolytes. Please see further orders. MMODL / IJN: [id number] /
--- NOTE | 2025-02-10 14:21 | PN ---
PROGRESS NOTE SUBJECTIVE: A 49-year-old white female, status post amputation of the great toe. OBJECTIVE: CARDIOVASCULAR: S1, S2. VITAL SIGNS: Respiratory rate 16 to 18, temp 98 to 97, pulse 70s, blood pressure is low 100s over 70s. LUNGS: Transmitted upper sounds. GI: Soft. EXTREMITIES: Right toe wound is evaluated with Dr. Lopez. HEMATOLOGY: Negative Homans. ASSESSMENT: Status post amputation of the big toe, tracheobronchitis thrush, cellulitis of the foot, skin necrosis of toe, Buerger's disease, alcohol dependence. Continue postop care. IV antibiotics per Parag. Possible home care will be done with wound dressings of the foot if she goes home Monday, 2 days from now. PT/OT is ordered. Prognosis guarded. MMODL / IJN: [id number] /
--- NOTE | 2025-02-10 14:22 | PN ---
PROGRESS NOTE A 49-year-old white female, Buerger's disease, status post amputation of the great toe of the right foot, [address] Tuttle wants the wound dressings kept on over the weekend, and the patient is requesting to go to a prison. PHYSICAL EXAMINATION: VITAL SIGNS: Stable, afebrile. CARDIOVASCULAR: S1, S2. LUNGS: Clear. GI: Soft. NEUROLOGIC: The patient is very somnolent. ASSESSMENT: 1. Hypertension. 2. Alcohol dependence. 3. Buerger's disease. 4. Vasculitis. 5. Nicotine addiction. 6. Chronic obstructive pulmonary disease. Continue current treatments. Wound care of the great toe. Dr. Lopez will address it tomorrow and possibly go to a rehab center. MMTONIL / IJN: [id number] /
--- NOTE | 2025-02-10 17:49 | P.PN ---
Progress Note - Text 49-year-old white female patient has history of Buerger's disease patient has history of smoking in the past. Right foot big toe developed gangrene changes patient had a right big toe amputation i primary closure patient IV antibiotic and under disease dressing change today advised nonweightbearing continue with IV antibiotic incision site is healing
--- NOTE | 2025-02-11 03:22 | PN ---
PROGRESS NOTE SUBJECTIVE: The patient is status post amputation of great toe on the right foot. Wound care is intact. Breathing is better. Wait for Dr. Lopez to clear her for discharge, then she will go to the [facility]. [facility] workup is in place. OBJECTIVE: VITAL SIGNS: Stable, afebrile. CARDIOVASCULAR: S1, S2. LUNGS: Clear. GI: Soft. EXTREMITIES: Wound dressing on the right great toe . Prognosis guarded. Buerger's disease. Status post amputation of great toe. Cellulitis of the feet, gangrene of the toes. Alcohol dependence, COPD. Prognosis guarded. Sleep apnea. Continue current treatment. MMODL / IJN: [id number] /
[2025-02-11 08:25] LABS: Basophils # (A) 0.02 X 10*3/uL (0.00-0.10); Basophils % (A) 0.5 %; Eosinophils # (A) 0.12 X 10*3/uL (0.04-0.35); Eosinophils % (A) 3.2 %; HCT 31.3 % (37.2-46.3); HGB 9.9 g/dL (12.0-15.0); Lymphocytes # (A) 1.29 X 10*3/uL (0.90-5.00); Lymphocytes % (A) 34.3 %; MCH 31.5 pg (27.0-32.0); MCHC 31.6 g/dL (32.0-37.0); MCV 99.7 FL (80.0-97.0); Mean Platelet Volume 10.2 FL (9.5-12.2); Monocytes # (A) 0.43 X 10*3/uL (0.20-1.00); Monocytes % (A) 11.4 %; NRBC Per 100 WBC 0 X 10*3/uL (0.00-0.01); Neutrophils # (A) 1.89 X 10*3/uL (1.80-7.70); Neutrophils % (A) 50.3 %; Platelet Count 235 X 10*3/uL (140-440); RBC 3.14 X 10*6/uL (4.10-5.20); RDW 16.3 % (11.5-14.5); WBC 3.76 X 10*3/uL (4.50-10.00)
[2025-02-11 08:30] LABS: ALT 33 U/L (8-44); AST 27 U/L (13-35); Albumin 3.2 g/dL (3.8-4.9); Albumin/Globulin Ratio 1.68 Ratio (1.60-3.17); Alkaline Phosphatase 94 U/L (41-126); BUN/Creat Ratio 12.12 Ratio (12.00-20.00); Blood Urea Nitrogen 9.7 mg/dL (9.0-27.0); Carbon Dioxide 28.6 mmol/L (21.6-31.8); Chloride 103 mmol/L (96-109); Globulin 1.9 g/dL (1.6-3.3); Glucose 138 mg/dL (70-110); Potassium 3.7 mmol/L (3.5-5.5); Sodium 141 mmol/L (135-145); Total Bilirubin 0.2 mg/dL (0.3-1.2); Total Protein 5.1 g/dL (6.2-8.2)
--- NOTE | 2025-02-11 14:49 | P.PN ---
Subjective Progress Note Date: 02/10/25 Principal diagnosis: Reason for follow-up is right foot cellulitis Patient is a 49-year-old female with a past medical history significant for atrial fibrillation hypertension PE hypothyroidism recent admission to the hospital treated for pneumonia now presenting to the hospital concerning of bilateral big toe discoloration more on the right side with associated pain CT angiogram did not show any evidence of vascular occlusion vascular surgery is following the patient ID consulted because of ascending lymphangitis on the right side concerning for cellulitis.Patient is status post amputation of the right big toe by vascular surgery on 01/30/2025 On today's evaluation that is 02/10/2025, patient has been afebrile, patient is breathing comfortably and is currently on room air, patient denies having any significant cough no chest pain, patient denies nausea vomiting or diarrhea and no abdominal pain, pain to the right big temptation site is currently controlle d. Patient did not have lab draw today blood cultures currently pending Objective - Vital Signs Vital signs: Vital Signs Temp 98 F 02/10/25 14:00 Pulse 75 02/10/25 14:00 Resp 16 02/10/25 14:00 BP 107/64 02/10/25 14:00 Pulse Ox 95 02/10/25 14:00 FiO2 21 01/17/25 07:56 Intake & Output 02/09/25 02/10/25 02/10/25 18:59 06:59 18:59 Intake Total 236 222 Output Total 1 Balance 236 222 -1 Intake: Oral 236 222 Output: Urine 1 Other: Voiding Method Bedside Commode Bedside Commode Bedside Commode # Voids 3 2 1 # Bowel Movements 0 - Exam GENERAL DESCRIPTION: Middle-age female lying in bed in no distress RESPIRATORY SYSTEM: Unlabored breathing , decreased breath sounds at bases HEART: S1 S2 regular rate and rhythm , ABDOMEN: Soft , no tenderness EXTREMITIES: Right foot is currently dressed - Labs CBC & Chem 7: 02/11/25 04:27 02/11/25 04:27 Assessment and Plan (1) Cellulitis of right foot Current Visit: Yes Status: Acute Priority: High Code(s): L03.115 - CELLULITIS OF RIGHT LOWER LIMB SNOMED Code(s): 24176175916028312 (2) Thrush Current Visit: Yes Status: Acute Code(s): B37.0 - CANDIDAL STOMATITIS SNOMED Code(s): 72537378 (3) Tracheobronchitis Current Visit: No Status: Acute Code(s): J40 - BRONCHITIS, NOT SPECIFIED ACUTE OR CHRONIC SNOMED Code(s): 18804056 (4) Ischemic necrosis of toe Current Visit: Yes Status: Acute Code(s): I96 - GANGRENE, NOT ELSEWHERE CLASSIFIED SNOMED Code(s): 290844968 Plan: 1patient presented to hospital with bilateral big toe discoloration and pain in this patient who did have CT did not show any peripheral arterial disease with a question of possibly macrovascular versus Burger disease and is being followed by vascular surgery and now with concern for possible developing lymphangitis/cellulitis especially to the right foot area likely from gram-positive skin rodolfo. 2patient with a penicillin allergy that will limit the number of antibiotics safe to use. 3patient did have evidence of thrush and is complaining of persistent syndrome as well as some dysphagia concern for possible oropharyngeal candidiasis treated with a course of Diflucan and nystatin swish and swallow 4patient is status post amputation of the necrotic right big toe and cultures have been obtained which are currently pending 5patient remains to be afebrile white count has been normal,, OR cultures are currently pending to continue patient on daptomycin. Dictation was produced using [employer] software. please excuse any grammatical, word or spelling errors. Time with Patient: Less than 30
--- NOTE | 2025-02-11 14:50 | P.PN ---
Subjective Progress Note Date: 02/11/25 Principal diagnosis: Reason for follow-up is right foot cellulitis Patient is a 49-year-old female with a past medical history significant for atrial fibrillation hypertension PE hypothyroidism recent admission to the hospital treated for pneumonia now presenting to the hospital concerning of bilateral big toe discoloration more on the right side with associated pain CT angiogram did not show any evidence of vascular occlusion vascular surgery is following the patient ID consulted because of ascending lymphangitis on the right side concerning for cellulitis.Patient is status post amputation of the right big toe by vascular surgery on 01/30/2025 On today's evaluation that is 02/11/2025, Patient is afebrile this morning patient denies having any chest pain shortness of breath or cough, the patient is currently on room air, patient denies any abdominal pain no diarrhea no nausea no vomiting, pain to the right foot is currently controlled with pain medication. Patient white count is 3.76 creatinine 0.8 local cultures so far negative Objective - Vital Signs Vital signs: Vital Signs Temp 98.2 F 02/11/25 08:00 Pulse 74 02/11/25 08:00 Resp 18 02/11/25 08:00 BP 128/80 02/11/25 08:00 Pulse Ox 95 02/11/25 08:00 FiO2 21 01/17/25 07:56 Intake & Output 02/10/25 02/11/25 02/11/25 18:59 06:59 18:59 Intake Total 540 Output Total 1 Balance -1 540 Intake: Oral 540 Output: Urine 1 Other: Voiding Method Bedside Commode Bedside Commode Bedside Commode # Voids 1 2 2 # Bowel Movements 2 - Exam GENERAL DESCRIPTION: Middle-age female lying in bed in no distress RESPIRATORY SYSTEM: Unlabored breathing , decreased breath sounds at bases HEART: S1 S2 regular rate and rhythm , ABDOMEN: Soft , no tenderness EXTREMITIES: Right foot is currently dressed - Labs CBC & Chem 7: 02/11/25 04:27 02/11/25 04:27 Labs: Abnormal Lab Results - Last 24 Hours (Table) 02/11/25 02/11/25 Range/Units 04:27 04:27 WBC 3.76 L (4.50-10.00) X 10*3/uL RBC 3.14 L (4.10-5.20) X 10*6/uL Hgb 9.9 L (12.0-15.0) g/dL Hct 31.3 L (37.2-46.3) % MCV 99.7 H (80.0-97.0) FL MCHC 31.6 L (32.0-37.0) g/dL RDW 16.3 H (11.5-14.5) % Glucose 138 H (70-110) mg/dL Total Bilirubin 0.2 L (0.3-1.2) mg/dL Total Protein 5.1 L (6.2-8.2) g/dL Albumin 3.2 L (3.8-4.9) g/dL Microbiology - Last 24 Hours (Table) 02/07/25 14:21 Gram Stain - Preliminary Toe - Right First Tissue Culture - Preliminary Assessment and Plan (1) Cellulitis of right foot Current Visit: Yes Status: Acute Priority: High Code(s): L03.115 - CELLULITIS OF RIGHT LOWER LIMB SNOMED Code(s): 76270347552983771 (2) Thrush Current Visit: Yes Status: Acute Code(s): B37.0 - CANDIDAL STOMATITIS SNOMED Code(s): 38955657 (3) Tracheobronchitis Current Visit: No Status: Acute Code(s): J40 - BRONCHITIS, NOT SPECIFIED ACUTE OR CHRONIC SNOMED Code(s): 38800062 (4) Ischemic necrosis of toe Current Visit: Yes Status: Acute Code(s): I96 - GANGRENE, NOT ELSEWHERE CLASSIFIED SNOMED Code(s): 546359180 Plan: 1patient presented to hospital with bilateral big toe discoloration and pain in this patient who did have CT did not show any peripheral arterial disease with a question of possibly macrovascular versus Burger disease and is being followed by vascular surgery and now with concern for possible developing lym phangitis/cellulitis especially to the right foot area likely from gram-positive skin rodolfo. 2patient with a penicillin allergy that will limit the number of antibiotics safe to use. 3patient did have evidence of thrush and is complaining of persistent syndrome as well as some dysphagia concern for possible oropharyngeal candidiasis treated with a course of Diflucan and nystatin swish and swallow 4patient is status post amputation of the necrotic right big toe and cultures have been obtained which are currently pending 5patient remains to be afebrile white count has been normal,, OR cultures are currently pending and if there remains to be negative patient will not need any IV antibiotics on discharge, to continue patient on daptomycin while inpatient. Dictation was produced using [employer] dictation software. please excuse any grammatical, word or spelling errors. Time with Patient: Less than 30
--- NOTE | 2025-02-11 14:54 | P.PN ---
Progress Note - Text 80-year-old white female history of smoking history of Buerger's disease patient developed bilateral lower extremity toes dry gangrene changes patient had a right foot big toe potation done in the in the past we have been treating with IV antibiotic and local wound care we did the primary closure incision site is healing negative for discharge or or fever patient is IV antibiotic under care of infectious disease which will be continued advised offloading shoe patient
--- NOTE | 2025-02-11 15:32 | P.PN ---
Progress Note - Text 49-year-old white femal pedis is 1+ sutures site is healing no discharge or redness noted we change the dressing today we changed the dressing today if patient goes home following my office e history of smoking in the past patient came with bilateral lower extremity told discoloration patient had a right big toe dry gangrene we did the picture amputation with primary closure no fever or chills present patient is an IV antibiotic under care of infectious disease
--- NOTE | 2025-02-11 23:34 | PN ---
PROGRESS NOTE Buerger's disease, status post toe amputation of the right foot. Care per Dr. Lopez. Going to go to rehab till the wound heals. PT/OT. She is breathing better. No chest pain. OBJECTIVE: CARDIOVASCULAR: S1 and S2. LUNGS: Transmitted upper airway sounds. GI: Soft. EXTREMITIES: 2+ edema. Toe is wrapped. Status post amputation of great toe for Buerger's disease, and ischemia to the toe. Other wounds are healing. Continue with PT/OT, go to rehab center. Pain control. MMODL / IJN: [id number] /
[2025-02-12 08:23] LABS: Basophils # (A) 0.03 X 10*3/uL (0.00-0.10); Basophils % (A) 0.6 %; Eosinophils # (A) 0.11 X 10*3/uL (0.04-0.35); Eosinophils % (A) 2.1 %; HCT 33.6 % (37.2-46.3); HGB 10.7 g/dL (12.0-15.0); Lymphocytes # (A) 1.67 X 10*3/uL (0.90-5.00); Lymphocytes % (A) 31.8 %; MCH 31.3 pg (27.0-32.0); MCHC 31.8 g/dL (32.0-37.0); MCV 98.2 FL (80.0-97.0); Mean Platelet Volume 9.7 FL (9.5-12.2); Monocytes # (A) 0.53 X 10*3/uL (0.20-1.00); Monocytes % (A) 10.1 %; NRBC Per 100 WBC 0 X 10*3/uL (0.00-0.01); Neutrophils # (A) 2.88 X 10*3/uL (1.80-7.70); Neutrophils % (A) 54.8 %; Platelet Count 260 X 10*3/uL (140-440); RBC 3.42 X 10*6/uL (4.10-5.20); RDW 16.2 % (11.5-14.5); WBC 5.25 X 10*3/uL (4.50-10.00)
[2025-02-12 09:03] LABS: ALT 34 U/L (8-44); AST 32 U/L (13-35); Albumin 3.4 g/dL (3.8-4.9); Albumin/Globulin Ratio 1.62 Ratio (1.60-3.17); Alkaline Phosphatase 104 U/L (41-126); BUN/Creat Ratio 11.29 Ratio (12.00-20.00); Blood Urea Nitrogen 7.9 mg/dL (9.0-27.0); Calcium 9.2 mg/dL (8.7-10.3); Carbon Dioxide 29.7 mmol/L (21.6-31.8); Chloride 98 mmol/L (96-109); Globulin 2.1 g/dL (1.6-3.3); Glucose 114 mg/dL (70-110); Potassium 3.5 mmol/L (3.5-5.5); Sodium 139 mmol/L (135-145); Total Bilirubin 0.4 mg/dL (0.3-1.2); Total Protein 5.5 g/dL (6.2-8.2)
--- NOTE | 2025-02-12 15:24 | P.PN ---
Subjective Progress Note Date: 02/12/25 Principal diagnosis: Reason for follow-up is right foot cellulitis Patient is a 49-year-old female with a past medical history significant for atrial fibrillation hypertension PE hypothyroidism recent admission to the hospital treated for pneumonia now presenting to the hospital concerning of bilateral big toe discoloration more on the right side with associated pain CT angiogram did not show any evidence of vascular occlusion vascular surgery is following the patient ID consulted because of ascending lymphangitis on the right side concerning for cellulitis.Patient is status post amputation of the right big toe by vascular surgery on 01/30/2025 On today's evaluation that is 02/12/2025,the patient denies any fever or any chills, patient is breathing comfortably on room air, the patient denies chest pain shortness of breath and no significant cough, patient denies abdominal pain, no nausea vomiting or diarrhea. Pain to the right foot is currently controlled. Patient white count normal at 5.25, creatinine 0.7 culture has been negative for any resistant pathogen Objective - Vital Signs Vital signs: Vital Signs Temp 98.9 F 02/12/25 08:00 Pulse 74 02/12/25 08:00 Resp 18 02/12/25 09:24 BP 111/70 02/12/25 08:00 Pulse Ox 97 02/12/25 08:00 FiO2 21 01/17/25 07:56 Intake & Output 02/11/25 02/12/25 02/12/25 18:59 06:59 18:59 Intake Total 540 Output Total 1 Balance 539 Weight 90.718 kg Intake: Oral 540 Output: Urine 1 Other: Voiding Method Bedside Commode Bedside Commode Bedside Commode # Voids 2 1 - Exam GENERAL DESCRIPTION: Middle-age female lying in bed in no distress RESPIRATORY SYSTEM: Unlabored breathing , decreased breath sounds at bases HEART: S1 S2 regular rate and rhythm , ABDOMEN: Soft , no tenderness EXTREMITIES: Right foot is currently dressed - Labs CBC & Chem 7: 02/12/25 05:51 02/12/25 05:51 Labs: Abnormal Lab Results - Last 24 Hours (Table) 02/12/25 02/12/25 Range/Units 05:51 05:51 RBC 3.42 L (4.10-5.20) X 10*6/uL Hgb 10.7 L (12.0-15.0) g/dL Hct 33.6 L (37.2-46.3) % MCV 98.2 H (80.0-97.0) FL MCHC 31.8 L (32.0-37.0) g/dL RDW 16.2 H (11.5-14.5) % BUN 7.9 L (9.0-27.0) mg/dL BUN/Creatinine Ratio 11.29 L (12.00-20.00) Ratio Glucose 114 H (70-110) mg/dL Total Protein 5.5 L (6.2-8.2) g/dL Albumin 3.4 L (3.8-4.9) g/dL Microbiology - Last 24 Hours (Table) 02/07/25 14:21 Gram Stain - Final Toe - Right First Tissue Culture - Final Assessment and Plan (1) Cellulitis of right foot Current Visit: Yes Status: Acute Priority: High Code(s): L03.115 - CELLULITIS OF RIGHT LOWER LIMB SNOMED Code(s): 96170436219480687 (2) Thrush Current Visit: Yes Status: Acute Code(s): B37.0 - CANDIDAL STOMATITIS SNOMED Code(s): 88516611 (3) Tracheobronchitis Current Visit: No Status: Acute Code(s): J40 - BRONCHITIS, NOT SPECIFIED ACUTE OR CHRONIC SNOMED Code(s): 94059013 (4) Ischemic necrosis of toe Current Visit: Yes Status: Acute Code(s): I96 - GANGRENE, NOT ELSEWHERE CLASSIFIED SNOMED Code(s): 257141527 Plan: 1patient presented to hospital with bilateral big toe discoloration and pain in this patient who did have CT did not show any peripheral arterial disease with a question of possibly macrovascular versus Burger disease and is being followed by vascular surgery and now with concern for possible developing lymphangitis/cellulitis especially to the right foot area likely from gram- positive skin rodolfo. 2patient with a penicillin allergy that will limit the number of antibiotics safe to use. 3patient did have evidence of thrush and is complaining of persistent syndrome as well as some dysphagia concern for possible oropharyngeal candidiasis treated with a course of Diflucan and nystatin swish and swallow 4patient is status post amputation of the necrotic right big toe and cultures have been obtained which are currently pending 5patient remains to be afebrile white count has been normal,, OR cultures has been negative we will go ahead and discontinue daptomycin, short course of oral doxycycline and monitor clinical course closely Dictation was produced using [employer] dictation software. please excuse any grammatical, word or spelling errors. Time with Patient: Less than 30
[2025-02-12] MEDS: HYDROcodone/APAP 10-325MG 1 EACH TAB PO SCH (16:07)
[2025-02-12] MEDS: LORazepam 1 MG TAB PO SCH (20:49)
[2025-02-12] MEDS: DOXYCYCLINE 100 MG TABLET PO SCH (20:50)
--- NOTE | 2025-02-13 03:58 | PN ---
PROGRESS NOTE SUBJECTIVE: A 49-year-old white female, vasculitis type syndrome, status post toe amputations. Waiting for Physical Therapy to set up in the rehab center per Infectious Disease as well as Dr. Lopez, who did amputation of the great toe of the right foot 2 days ago. OBJECTIVE: CARDIOVASCULAR: S1, S2. LUNGS: Clear. GI: Soft. HEMATOLOGY: Negative Homans. EXTREMITIES: Edema is 2+. PLAN: We are going to hold her at nighttime. Bumex given once a day. Monitor potassiums. Ready for discharge. She is waiting for discharge planning to find her a bed at the [facility] living. Prognosis guarded. MMODL / IJN: [id number] /
[2025-02-13] MEDS: BUMETANIDE 1 MG TAB PO SCH (07:59)
--- NOTE | 2025-02-13 13:33 | P.PN ---
Subjective Progress Note Date: 02/13/25 Principal diagnosis: Reason for follow-up is right foot cellulitis Patient is a 49-year-old female with a past medical history significant for atrial fibrillation hypertension PE hypothyroidism recent admission to the hospital treated for pneumonia now presenting to the hospital concerning of bilateral big toe discoloration more on the right side with associated pain CT angiogram did not show any evidence of vascular occlusion vascular surgery is following the patient ID consulted because of ascending lymphangitis on the right side concerning for cellulitis.Patient is status post amputation of the right big toe by vascular surgery on 01/30/2025 On today's evaluation that is 02/13/2025,the patient remains to be afebrile, patient is on room air not requiring supplemental oxygen and denies any shortness of breath no chest pain or cough.Patient denies having any nausea or vomiting, no abdominal pain and no diarrhea, pain to the right foot is currently controlled mention feeling better waiting for placement. Patient white count is 5.25 as of yesterday no CBC was done today culture has been negative reviewed again today Objective - Vital Signs Vital signs: Vital Signs Temp 98 F 02/13/25 08:00 Pulse 68 02/13/25 08:00 Resp 17 02/13/25 08:00 BP 110/70 02/13/25 08:00 Pulse Ox 96 02/13/25 08:00 FiO2 21 01/17/25 07:56 Intake & Output 02/12/25 02/13/25 02/13/25 18:59 06:59 18:59 Intake Total 221 Output Total 3 Balance 221 -3 Intake: Oral 221 Output: Stool 3 Other: Voiding Method Bedside Commode Bedside Commode # Voids 1 3 # Bowel Movements 1 - Exam GENERAL DESCRIPTION: Middle-age female lying in bed in no distress RESPIRATORY SYSTEM: Unlabored breathing , decreased breath sounds at bases HEART: S1 S2 regular rate and rhythm , ABDOMEN: Soft , no tenderness EXTREMITIES: Right foot is currently dressed - Labs CBC & Chem 7: 02/12/25 05:51 02/12/25 05:51 Assessment and Plan (1) Cellulitis of right foot Current Visit: Yes Status: Acute Priority: High Code(s): L03.115 - CELLULITIS OF RIGHT LOWER LIMB SNOMED Code(s): 25797608174344161 (2) Thrush Current Visit: Yes Status: Acute Code(s): B37.0 - CANDIDAL STOMATITIS SNOMED Code(s): 21740373 (3) Tracheobronchitis Current Visit: No Status: Acute Code(s): J40 - BRONCHITIS, NOT SPECIFIED ACUTE OR CHRONIC SNOMED Code(s): 08355488 (4) Ischemic necrosis of toe Current Visit: Yes Status: Acute Code(s): I96 - GANGRENE, NOT ELSEWHERE CLASSIFIED SNOMED Code(s): 141167886 Plan: 1patient presented to hospital with bilateral big toe discoloration and pain in this patient who did have CT did not show any peripheral arterial disease with a question of possibly macrovascular versus Burger disease and is being followed by vascular surgery and now with concern for possible developing lymphangitis/cellulitis especially to the right foot area likely from gram- positive skin rodolfo. 2patient with a penicillin allergy that will limit the number of antibiotics safe to use. 3patient did have evidence of thrush and is complaining of persistent syndrome as well as some dysphagia concern for possible oropharyngeal candidiasis treated with a course of Diflucan and nystatin swish and swallow 4patient is status post amputation of the necrotic right big toe and cultures have been obtained which are currently pending 5patient remains to be afebrile white count has been normal,, OR cultures has been negative 6has received adequate IV have daptomycin and currently on short course of oral doxycycline and monitor clinical course closely Dictation was produced using [employer] software. please excuse any grammatical, word or spelling errors. Time with Patient: Less than 30
--- NOTE | 2025-02-14 00:58 | PN ---
PROGRESS NOTE She is scheduled to go to the shelter tomorrow. Everything has been organized. We will give her a script for Jorge. She is going to [facility] tomorrow. Discussed with her the PT/OT, needs to improve and get ambulating. PROGNOSIS: Guarded. CONDITION: Stable. TERESA / RITAN: [id number] /
--- NOTE | 2025-02-14 01:01 | PN ---
PROGRESS NOTE SUBJECTIVE: A 49-year-old white female, who has left foot second and third digit, more ischemic and gangrenous. I have asked Dr. Lopez to come and see her again. She has 2+ edema in her legs. She is tired, weak and fatigued. PHYSICAL EXAMINATION: CARDIOVASCULAR: S1 and S2. LUNGS: Clear. ENDOCRINE: The abdomen is swollen. VITAL SIGNS: Temperature 98.6, pulse 75, respiratory rate 16 to 18, blood pressure 132/86. VASCULAR: Second and third toes in the left foot, distal tips are gangrenous bilaterally. Left foot, second and third toes, possible amputation will be needed. Continue current treatment at this time. Get Dr. Lopez to re-evaluate. Please see further orders. MMODL / IJN: [id number] /
[2025-02-14 08:04] VITALS: BP 124/77; PULSE 70; RESP 16; TEMP 98.2
--- NOTE | 2025-02-14 12:51 | P.PN ---
Progress Note - Text 49-year-old female patient history of smoking patient had a bilateral angiogram lower extremity she has history of Buerger's disease involving the small vessel of the toes hide at the right big toe amputation pressure site is completely healed patient has a dry gangrene of the left foot second third toe no drainage no fever noted Patient is going to [facility]p [facility] today we have changed the dressing if patient goes home today will follow-up with me in my office next week Monday or
--- NOTE | 2025-02-14 13:37 | DS ---
DISCHARGE SUMMARY DISCHARGE DIAGNOSES: Buerger's disease, gangrene to bilateral feet, status post great toe amputation of the right foot, bilateral leg numbness, degenerative disk disease of lumbar and cervical spine, alcohol dependence, asthma, chronic obstructive pulmonary disease, obesity, acute on chronic diastolic heart failure, hypothyroidism, hypertension. MEDICATIONS: 1. Abilify 2.5 mg daily. 2. Diltiazem 30 b.i.d. 3. Losartan 25 mg daily. 4. Doxycycline 100 b.i.d. 5. DuoNeb t.i.d. 6. Mag oxide 400 mg b.i.d. 7. Protonix 40 mg b.i.d. 8. Ambien 5 mg p.r.n. for insomnia. 9. Aspirin 81 mg daily. 10.Ativan 1 mg b.i.d. 11.Bumex 2 mg once a day in the morning q.a.m. 12.Corder 10/325 t.i.d. 13.Tylenol 650 p.r.n. 14.Neurontin 300 t.i.d. 15.Lopressor 25 b.i.d. 16.Lodine 400 daily. 17.K-Dur 10 mEq daily. 18.Colace 100 b.i.d. Condition stable. Prognosis guarded. Other medications include, 1. Synthroid 75 mcg daily. 2. Nicotine patch 21 mg daily. 3. Ferrous sulfate 325 daily. 4. Zoloft 100 b.i.d. PROGNOSIS: Fair to poor. Alcohol withdrawal. Alcohol was treated with medications. She is stable. Continue breathing treatments. She wears oxygen at night, 2 L on nasal cannula. Follow up with Dr. Lopez and as well as my office. Dr. Lopez will follow the gangrene in the toes. Follow up in my office when she gets out of rehab. Corder was given for pain. Prognosis guarded. Ambulate as tolerated. Diet as tolerated. Quit smoking at all cost. MMODL / IJN: [id number] /
--- NOTE | 2025-02-14 21:27 | P.PN ---
Subjective Progress Note Date: 02/14/25 Principal diagnosis: Reason for follow-up is right foot cellulitis Patient is a 49-year-old female with a past medical history significant for atrial fibrillation hypertension PE hypothyroidism recent admission to the hospital treated for pneumonia now presenting to the hospital concerning of bilateral big toe discoloration more on the right side with associated pain CT angiogram did not show any evidence of vascular occlusion vascular surgery is following the patient ID consulted because of ascending lymphangitis on the right side concerning for cellulitis.Patient is status post amputation of the right big toe by vascular surgery on 01/30/2025 On today's evaluation that is 02/14/2025, the patient continues to be afebrile, the patient is on room air and breathing comfortably, the Pt denies having any chest pain or cough, the patient denies having any abdominal pain no vomiting or any diarrhea, no worsening pain to the right foot. No new lab has been obtained today Objective - Vital Signs Vital signs: Vital Signs Temp 98.2 F 02/14/25 08:00 Pulse 70 02/14/25 08:00 Resp 16 02/14/25 08:00 BP 124/77 02/14/25 08:00 Pulse Ox 95 02/14/25 08:00 FiO2 21 01/17/25 07:56 Intake & Output 02/13/25 02/14/25 02/14/25 18:59 06:59 18:59 Intake Total 118 Balance 118 Intake: Oral 118 Other: Voiding Method Bedside Commode Bedside Commode # Voids 3 3 3 # Bowel Movements 0 2 - Exam GENERAL DESCRIPTION: Middle-age female lying in bed in no distress RESPIRATORY SYSTEM: Unlabored breathing , decreased breath sounds at bases HEART: S1 S2 regular rate and rhythm , ABDOMEN: Soft , no tenderness EXTREMITIES: Right foot is currently dressed no drainage - Labs CBC & Chem 7: 02/12/25 05:51 02/12/25 05:51 Assessment and Plan (1) Cellulitis of right foot Status: Acute Priority: High Code(s): L03.115 - CELLULITIS OF RIGHT LOWER LIMB SNOMED Code(s): 90898812450639525 (2) Thrush Status: Acute Code(s): B37.0 - CANDIDAL STOMATITIS SNOMED Code(s): 61821650 (3) Tracheobronchitis Status: Acute Code(s): J40 - BRONCHITIS, NOT SPECIFIED ACUTE OR CHRONIC SNOMED Code(s): 87402330 (4) Ischemic necrosis of toe Status: Acute Code(s): I96 - GANGRENE, NOT ELSEWHERE CLASSIFIED SNOMED Code(s): 257276263 Plan: 1patient presented to hospital with bilateral big toe discoloration and pain in this patient who did have CT did not show any peripheral arterial disease with a question of possibly macrovascular versus Burger disease and is being followed by vascular surgery and now with concern for possible developing lymphangitis/cellulitis especially to the right foot area likely from gram- positive skin rodolfo. 2patient with a penicillin allergy that will limit the number of antibiotics safe to use. 3patient did have evidence of thrush and is complaining of persistent syndrome as well as some dysphagia concern for possible oropharyngeal candidiasis treated with a course of Diflucan and nystatin swish and swallow 4patient is status post amputation of the necrotic right big toe and cultures have been obtained which are currently pending 5patient remains to be afebrile white count has been normal,, OR cultures has been negative 6has received adequate IV daptomycin for cellulitis/wound infection and currently on short course of oral doxycycline upon discharge and she will closely follow-up with vascular surgeon as documented in his note Dictation was produced using [employer] dictation software. please excuse any grammatical, word or spelling errors. Time with Patient: Less than 30
== END 2025-02-14 19:33 | DRG 314 ==
LOC: EC 16:32 → 4SSUR 22:21 → 6NMEDSUR 01-23 08:43
PROVIDERS: ADMIT Family Medicine; ATTEND Family Medicine
PROC: B41D1ZZ Fluoroscopy of Aorta and Bilateral Lower Extremity Arteries using Low Osmolar Contrast (ICD-10-PCS; 2025-01-23 07:30)
PROC: 0DB78ZX Excision of Stomach, Pylorus, Via Natural or Artificial Opening Endoscopic, Diagnostic (ICD-10-PCS; 2025-01-27)
PROC: B41F1ZZ Fluoroscopy of Right Lower Extremity Arteries using Low Osmolar Contrast (ICD-10-PCS; 2025-02-05)
PROC: 0Y6Q0Z0 Detachment at Left 1st Toe, Complete, Open Approach (ICD-10-PCS; principal; 2025-02-07 14:00)
DX: I73.1 Thromboangiitis obliterans [Buerger's disease] (principal); E03.9 Hypothyroidism, unspecified; E78.5 Hyperlipidemia, unspecified; E66.9 Obesity, unspecified; Z68.31 Body mass index [BMI] 31.0-31.9, adult; F10.239 Alcohol dependence with withdrawal, unspecified; F41.9 Anxiety disorder, unspecified; F43.10 Post-traumatic stress disorder, unspecified; F32.9 Major depressive disorder, single episode, unspecified; I11.0 Hypertensive heart disease with heart failure; J44.1 Chronic obstructive pulmonary disease with (acute) exacerbation; I50.33 Acute on chronic diastolic (congestive) heart failure; I48.20 Chronic atrial fibrillation, unspecified; L03.115 Cellulitis of right lower limb; K29.70 Gastritis, unspecified, without bleeding; J96.01 Acute respiratory failure with hypoxia; M51.369 Other intervertebral disc degeneration, lumbar region without mention of lumbar back pain or lower extremity pain; M50.30 Other cervical disc degeneration, unspecified cervical region; G47.00 Insomnia, unspecified; R13.10 Dysphagia, unspecified; F10.20 Alcohol dependence, uncomplicated; K21.9 Gastro-esophageal reflux disease without esophagitis; I88.9 Nonspecific lymphadenitis, unspecified; F17.210 Nicotine dependence, cigarettes, uncomplicated; J20.9 Acute bronchitis, unspecified; W01.0XXA Fall on same level from slipping, tripping and stumbling without subsequent striking against object, initial encounter; T38.0X5A Adverse effect of glucocorticoids and synthetic analogues, initial encounter; B37.0 Candidal stomatitis; J44.0 Chronic obstructive pulmonary disease with (acute) lower respiratory infection; D72.829 Elevated white blood cell count, unspecified; K59.00 Constipation, unspecified; K43.0 Incisional hernia with obstruction, without gangrene; Z79.899 Other long term (current) drug therapy; Z86.711 Personal history of pulmonary embolism; Z86.16 Personal history of COVID-19; Z71.6 Tobacco abuse counseling; Z79.51 Long term (current) use of inhaled steroids; Z79.82 Long term (current) use of aspirin; Z79.890 Hormone replacement therapy; Z86.718 Personal history of other venous thrombosis and embolism
CPT/HCPCS: 36200; 36245; 36415; 43239; 71046; 71250; 75625; 75635; 75710; 75716; 76700; 76937; 80048; 80053; 80202; 81025; 82550; 82565; 83605; 83735; 84439; 84443; 84484; 85025; 85610; 85613; 85652; 85730; 86038; 86140; 86146; 86147; 86431; 87070; 87075; 87205; 88305; 93005; 93306; 93922; 93970; 94640; 94667; 94668; 94760; 96365; 96366; 96375; 96376; 99285

== ENCOUNTER → 2025-03-14 | Outpatient (CLI) | payer OTHER ==
[2025-03-14 15:07] LABS: HCT 35.9 % (37.2-46.3); HGB 11.5 g/dL (12.0-15.0); MCH 30.4 pg (27.0-32.0); Mean Platelet Volume 10.2 FL (9.5-12.2); NRBC Per 100 WBC 0 X 10*3/uL (0.00-0.01); Platelet Count 226 X 10*3/uL (140-440); RBC 3.78 X 10*6/uL (4.10-5.20); RDW 15.4 % (11.5-14.5); WBC 7.03 X 10*3/uL (4.50-10.00)
== END | disposition home or self-care (01) ==
LOC: LABPAT 10:22
PROVIDERS: ATTEND Surgery
DX: Z01.818 Encounter for other preprocedural examination (principal); K43.2 Incisional hernia without obstruction or gangrene
CPT/HCPCS: 85027; 86850; 86900; 86901; 93005

== ENCOUNTER 2025-03-25 05:37 | Day surgery (SDC) | payer OTHER ==
[~2025-03-25 05:37] MED LIST: ACETAMINOPHEN TAB 500 MG TAB PO PRN
[2025-03-25] MEDS ORDERED: LIDOCAINE 1% (10MG/ML) FOR IV START INTRADERMA PRN (05:45)
[2025-03-25] MEDS: IV FLUID CONTINUATION 1,000 ML IV ONE (06:53)
[2025-03-25] MEDS: LACTATED RINGERS 1,000 ML IV SCH (07:12)
[2025-03-25] MEDS: DEXAMETHASONE SOD PHOSPHATE 4 MG/ML 1 ML VIAL IV ONE (07:14)
[2025-03-25] MEDS: ONDANSETRON 4 MG/2 ML VIAL IVP ONE (07:14)
[2025-03-25] MEDS: MIDAZOLAM 2 MG/2 ML VIAL IV ONE (07:16)
[2025-03-25] MEDS: fentaNYL (PF) 50 MCG/ML 2 ML AMP IVP PRN (07:16)
[2025-03-25] MEDS: HEPARIN SODIUM,PORCINE 5,000 UNIT/ML 1 ML VIAL SQ PRN (07:33)
[2025-03-25] MEDS: ceFAZolin 2 GM in DEXTROSE 5% IN WATER 50 ML IVPB PRN (07:35)
[2025-03-25] MEDS: LIDOCAINE 1%-EPI 1:100,000 20 ML VIAL SQ ONE (07:55)
[2025-03-25] MEDS: HYDROmorphone 0.5 MG/0.5 ML SYRINGE IVP PRN (08:43)
[2025-03-25] MEDS ORDERED: ACETAMINOPHEN TAB 325 MG TAB PO PRN ×2 (08:48→16:59)
[2025-03-25] MEDS ORDERED: NALOXONE 0.4 MG/ML 1 ML VIAL IV PRN (08:48)
[2025-03-25] MEDS ORDERED: ONDANSETRON 4 MG/2 ML VIAL IVP PRN (08:48)
--- NOTE | 2025-03-25 08:48 | P.OP ---
Date of Procedure: 03/25/25 Preoperative Diagnosis: Incarcerated incisional hernia Postoperative Diagnosis: Incarcerated incisional hernia Procedure(s) Performed: Diagnostic laparoscopy Open repair of incarcerated incisional hernia Anesthesia: ANNA Surgeon: Mich Arias Estimated Blood Loss (ml): 20 Pathology: none sent Condition: stable Disposition: PACU Description of Procedure: The patient was placed on the operative table in the supine position. She received general anesthesia. Her abdomen was prepped and draped you sterile fashion. The patient had an obvious incisional hernia located the superior portion of her midline scar. A 5 mm optical trocar was placed in the left upper quadrant. Under direct vision. There were extensive adhesions noted in the abdomen. Due to the adhesions decided to proceed with open repair of the hernia. The trocars withdrawn. The skin was incised over the hernia. And then the subcutaneous tissues were divided from the hernia sac is electrocautery. The hernia sac was opened. The hernia sac contained transverse colon. The hernia neck was opened with electrocautery. And the colon and omentum were reduced back into the Salmon cavity. There appeared to be viable. The fascial defect was then closed with [id number] 0 Ethibond suture and then it was buttressed with #1 STRATAFIX suture. The fascial defect was approximate 10 cm in diameter. There was no bleeding seen. The skin was then closed with caro. Patient tolerated well. She was sent to recovery room in stable condition.
[2025-03-25] MEDS: droPERidol 2.5 MG/ML VIAL IVP ONE (10:47)
--- NOTE | 2025-03-25 10:59 | P.ANPRN ---
Procedure Note - Anesthesia - Nerve Block Performed Bilateral Erector Spinae Single Time Out Performed: Yes (0716) Date of Procedure: 03/25/25 Procedure Start Time: :17 Procedure Stop Time: :23 Location of Patient: PreOp Indication: Acute Post-Operative Pain, Requested by Surgeon Specifically requested for management of pain by : Mich Arias Sedation Type: Sedate with meaningful contact maintained Preparation: Sterile Prep Position: Sitting Catheter: None Needle Types: Pajunk Needle Gauge: 21 Ultrasound used to visualize needle placement: Yes Ultrasound used to observe medication spread: Yes Injectate: 0.5% Ropivacaine (see comment for volume) (20CC +DECADRON 4MG EACH SIDE) Blood Aspirated: No Pain Paresthesia on Injection Noted: No Resistance on Injection: Normal Image Stored and Saved: Yes Events: Uneventful and Well Tolerated
[2025-03-25] MEDS: D5-0.45% NACL WITH KCL 20MEQ/L 1,000 ML IV SCH (11:05)
[2025-03-25] MEDS: KETOROLAC 15 MG/ML 1 ML VIAL IVP SCH (12:05)
[2025-03-25] MEDS: HYDROmorphone 1 MG/ML 1 ML SYRINGE IVP PRN (14:02)
[2025-03-25] MEDS: LORazepam 1 MG TAB PO SCH (17:15)
[2025-03-25] MEDS: HYDROcodone/APAP 10-325MG 1 EACH TAB PO SCH (17:16)
[2025-03-25] MEDS: GABAPENTIN 300 MG CAP PO SCH (17:16)
[2025-03-25] MEDS ORDERED: DOCUSATE 100 MG CAP PO SCH (21:00)
[2025-03-25] MEDS: HYDROcodone/APAP 5-325MG 1 EACH TAB PO PRN (21:40)
[2025-03-25] MEDS: METOPROLOL TARTRATE 25 MG TAB PO SCH (21:42)
[2025-03-25] MEDS: MAGNESIUM OXIDE 400 MG TAB PO SCH (21:42)
[2025-03-25] MEDS: DOCUSATE 100 MG CAP PO SCH (21:42)
[2025-03-25] MEDS: SERTRALINE 100 MG TAB PO SCH (21:43)
[2025-03-25] MEDS: traZODone HCL 50 MG TAB PO SCH (21:43)
[2025-03-25] MEDS: DILTIAZEM ORAL 30 MG TAB PO SCH (22:40)
[2025-03-25] MEDS: DOXYCYCLINE 100 MG TABLET PO SCH (22:40)
[2025-03-26] MEDS: LEVOTHYROXINE 75 MCG TAB PO SCH (06:01)
--- NOTE | 2025-03-26 07:09 | CONS ---
CONSULTATION HISTORY OF PRESENT ILLNESS: 49-year-old white female, status post incarcerated hernia, repair of the ventral area of the abdomen. Medical management. She has Buerger's disease. She has 1 toe amputated on the right foot great toe. She has black excoriation on 2 distal 2nd and 3rd toe on the right foot. Vital signs reviewed. Home medications reviewed and reordered. REVIEW OF SYSTEMS: Negative except for HPI. PHYSICAL EXAMINATION: VITAL SIGNS: Blood pressure 109/79, O2 at 92 on room air, and pulse 68. CARDIOVASCULAR: S1, S2. LUNGS: Transmitted breath sounds. GI: Soft, nontender. HEMATOLOGY: Negative Homans. PSYCH: Fair mood and affect. ENDOCRINE: BMI is over 40. ASSESSMENT/PLAN: 1. Status post ventral hernia repair. 2. Buerger's disease. 3. Chronic obstructive pulmonary disease. 4. Asthma. 5. Nocturnal hypoxemia. Prognosis extremely guarded. Please see further orders. Resume home medications, breathing treatments, oxygen, and pain control. MMODL / IJN: [id number] /
[2025-03-26] MEDS: IPRATROPIUM 0.5 MG/2.5 ML NEBU INHALATION PRN (07:55)
[2025-03-26] MEDS: LOSARTAN 25 MG TAB PO SCH (08:21)
[2025-03-26] MEDS: BUMETANIDE 1 MG TAB PO SCH (08:21)
[2025-03-26] MEDS: PANTOPRAZOLE 40 MG TABLET PO SCH (08:21)
[2025-03-26] MEDS: POTASSIUM CHLORIDE ER 10 MEQ TAB.ER.PRT PO SCH (08:22)
[2025-03-26] MEDS: ASPIRIN 81 MG PO SCH (08:22)
[2025-03-26] MEDS: LORATADINE-PSEUDOEPH 5-120 MG 1 EACH TAB.ER.12H PO SCH (08:22)
[2025-03-26] MEDS: FERROUS SULFATE 325 MG TAB PO SCH (08:22)
[2025-03-26] MEDS: KETOROLAC 15 MG/ML 1 ML VIAL IVP SCH (08:23)
[2025-03-26] MEDS: ETODOLAC 400 MG TAB PO SCH (08:24)
[2025-03-26] MEDS: FLUTICASONE NASAL 50MCG/SPRAY 16GM BTL EA NOSTRIL SCH (08:24)
[2025-03-26] MEDS: ENOXAPARIN 40 MG/0.4 ML SYRINGE SQ SCH (08:25)
[2025-03-26] MEDS: NICOTINE 21MG/24HR PATCH TRANSDERM SCH (08:32)
--- NOTE | 2025-03-26 12:40 | P.PN ---
Subjective Progress Note Date: 03/26/25 SURGICAL PROGRESS NOTE CHIEF COMPLAINT: Incarcerated incisional hernia HISTORY OF PRESENT ILLNESS: Postop day #1 status post laparoscopy and open incarcerated incisional. Patient sitting at bedside chair. She reports her pain is controlled. Denies any flatus. She is tolerating diet PHYSICAL EXAM: VITAL SIGNS: Reviewed. GENERAL: Well-developed in no acute distress. ABDOMEN: Soft. Nondistended. Tender at incision site incisional dressing clean dry and intact. There is a very small area of saturation at NEUROLOGIC: Alert and oriented. Cranial nerves II through XII grossly intact. ASSESSMENT: 1. Incarcerated incisional hernia PLAN: - Continue regular diet - Continue pain management - Encourage patient to increase activity level - Continue Lovenox for DVT prophylaxis Physician Milling Operator note has been reviewed by physician. Signing provider agrees with the documented findings, assessment, and plan of care. Objective - Vital Signs Vital signs: Vital Signs Temp 97.8 F 03/26/25 07:15 Pulse 96 03/26/25 10:08 Resp 18 03/26/25 07:15 BP 102/65 03/26/25 10:08 Pulse Ox 98 03/26/25 10:08 FiO2 Intake & Output 03/25/25 03/26/25 03/26/25 18:59 06:59 18:59 Intake Total 1530 Output Total 10 Balance 1520 Weight 113.398 kg Intake: IV 450 Oral 1080 Output: Estimated Blood Loss 10 Other: # Voids 1 2 - Labs CBC & Chem 7: 03/25/25 07:13
[2025-03-26 20:08] VITALS: RESP 16
--- NOTE | 2025-03-27 05:25 | PN ---
PROGRESS NOTE SUBJECTIVE: 49-year-old white female, status post abdominal surgery with Dr. Arias. We started on all her home medications for Buerger's disease, asthma, COPD, hypoxemic respiratory failure chronic, and obesity. Prognosis guarded. OBJECTIVE: CARDIOVASCULAR: S1, S2. LUNGS: Clear. GI: Soft. PLAN: Continue current treatment. Possible discharge home when cleared by Surgery. Continue on her home medications. MMODL / IJN: [id number] /
[2025-03-27 10:24] LABS: HCT 29.4 % (37.2-46.3); HGB 9.6 g/dL (12.0-15.0); MCH 30.7 pg (27.0-32.0); MCHC 32.7 g/dL (32.0-37.0); MCV 93.9 fL (80.0-97.0); Mean Platelet Volume 9.9 fL (9.5-12.2); Platelet Count 189 10*3/uL (140-440); RBC 3.13 10*6/uL (4.10-5.20); RDW 14.9 % (11.5-14.5)
[2025-03-27 10:41] LABS: ALT 13 U/L (4-34); AST 18 U/L (14-36); African American GFR (CKD) >90 (>60 ml/min/1.73 sqM); Albumin 3.2 g/dL (3.5-5.0); Albumin/Globulin Ratio 1.4; Alkaline Phosphatase 82 U/L (38-126); Anion Gap 5 mmol/L; Blood Urea Nitrogen 26 mg/dL (7-17); Calcium 9.3 mg/dL (8.4-10.2); Carbon Dioxide 24 mmol/L (22-30); Chloride 105 mmol/L (98-107); Globulin 2.3 g/dL; Glucose 121 mg/dL (74-99); Non-African American GFR(CKD) >90 (>60 ml/min/1.73 sqM); Potassium 4.2 mmol/L (3.5-5.1); Sodium 134 mmol/L (137-145); Total Bilirubin 0.4 mg/dL (0.2-1.3); Total Protein 5.5 g/dL (6.3-8.2)
[2025-03-27] MEDS: ETODOLAC 400 MG TAB PO SCH (11:11)
[2025-03-27 12:11] VITALS: BP 138/84; PULSE 76; TEMP 98.3
--- NOTE | 2025-03-27 13:34 | P.DS ---
Providers Expected date of discharge: 03/27/25 Attending physician: Mich Arias Consults: 03/25/25 08:48 Consult Physician Routine Consulting Provider: Josef Carlson Consult Reason/Comments: Medical management Do you want consulting provider notified?: Yes Primary care physician: Josef Carlson Hospital Course: Discharge diagnosis 1. Incarcerated incisional hernia Hospital course This is a 49-year-old female with a known history of incarcerated incisional hernia. She is status post diagnostic laparoscopy and open repair of incarcerated incisional hernia. Patient tolerated surgery well. Her pain is controlled. She is tolerating diet. She is having flatus. She denies any difficulty urinating. She has been up and ambulating. She is stable for discharge. Please refer to chart for any further details. 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 Signing provider agrees with the documented findings, assessment, and plan of care. Patient Condition at Discharge: Stable Plan - Discharge Summary Discharge Rx Participant: Yes New Discharge Prescriptions: Continue Levothyroxine Sodium [Euthyrox] 75 mcg PO DAILY #30 tablet Diltiazem Oral [Cardizem*] 30 mg PO BID tab Losartan [Cozaar] 25 mg PO DAILY tab Doxycycline 100 mg PO BID tab Ipratropium Nebulized [Atrovent Nebulized 0.2 MG/ML] 1 dose INHALATION Q8H PRN PRN Reason: Shortness Of Breath Magnesium Oxide [Mag-Ox] 400 mg PO Q12H Omeprazole [PriLOSEC] 20 mg PO BID Nicotine 21Mg/24Hr Patch [Habitrol] 1 patch TRANSDERM DAILY #42 patch Ferrous Sulfate [Iron (65 MG Elemental)] 325 mg PO DAILY Sertraline [Zoloft] 100 mg PO BID #60 tab Aspirin 81 mg PO DAILY tab Bumetanide [BUMEX] 2 mg PO DAILY tab Docusate [Colace] 100 mg PO BID cap Potassium Chloride ER [K-Dur 10] 10 meq PO DAILY tab Etodolac [Lodine] 400 mg PO DAILY tab Metoprolol Tartrate [Lopressor] 25 mg PO BID tab guaiFENesin-DM 600/30MG [Mucinex Dm] 1 each PO Q12HR tab Gabapentin [Neurontin] 300 mg PO Q8H cap Acetaminophen Tab [Tylenol] 650 mg PO Q6HR PRN tab PRN Reason: Mild Pain Or Fever > 100.5 traZODone HCL [Desyrel] 50 mg PO HS Fluticasone Propionate [Fluticasone Propionate [place] 50 mcg Nasal [place]] 1 sprays EA NOSTRIL DAILY Loratadine-Pseudoeph 5-120 mg [Claritin-D 12 Hour] 1 tab PO DAILY Changed LORazepam [Ativan] 1 mg PO Q12H #6 tab HYDROcodone/APAP 10-325MG [[place] 10-325] 1 each PO TID PRN #9 tab PRN Reason: Pain Discharge Medication List Nicotine 21Mg/24Hr Patch [Habitrol] 1 patch TRANSDERM DAILY #42 patch 01/18/24 [Rx] Ferrous Sulfate [Iron (65 MG Elemental)] 325 mg PO DAILY 12/22/24 [History] Levothyroxine Sodium [Euthyrox] 75 mcg PO DAILY #30 tablet 12/29/24 [Rx] Sertraline [Zoloft] 100 mg PO BID #60 tab 12/29/24 [Rx] Acetaminophen Tab [Tylenol] 650 mg PO Q6HR PRN tab 02/12/25 [Rx] Aspirin 81 mg PO DAILY tab 02/12/25 [Rx] Bumetanide [BUMEX] 2 mg PO DAILY tab 02/12/25 [Rx] Diltiazem Oral [Cardizem*] 30 mg PO BID tab 02/12/25 [Rx] Docusate [Colace] 100 mg PO BID cap 02/12/25 [Rx] Doxycycline 100 mg PO BID tab 02/12/25 [Rx] Etodolac [Lodine] 400 mg PO DAILY tab 02/12/25 [Rx] Gabapentin [Neurontin] 300 mg PO Q8H cap 02/12/25 [Rx] Losartan [Cozaar] 25 mg PO DAILY tab 02/12/25 [Rx] Metoprolol Tartrate [Lopressor] 25 mg PO BID tab 02/12/25 [Rx] Potassium Chloride ER [K-Dur 10] 10 meq PO DAILY tab 02/12/25 [Rx] guaiFENesin-DM 600/30MG [Mucinex Dm] 1 each PO Q12HR tab 02/12/25 [Rx] Fluticasone Propionate [Fluticasone Propionate [place] 50 mcg Nasal [place]] 1 sprays EA NOSTRIL DAILY 03/21/25 [History] Ipratropium Nebulized [Atrovent Nebulized 0.2 MG/ML] 1 dose INHALATION Q8H PRN 03/21/25 [History] Loratadine-Pseudoeph 5-120 mg [Claritin-D 12 Hour] 1 tab PO DAILY 03/21/25 [History] Magnesium Oxide [Mag-Ox] 400 mg PO Q12H 03/21/25 [History] Omeprazole [PriLOSEC] 20 mg PO BID 03/21/25 [History] traZODone HCL [Desyrel] 50 mg PO HS 03/21/25 [History] HYDROcodone/APAP 10-325MG [[place] 10-325] 1 each PO TID PRN #9 tab 03/27/25 [Rx] LORazepam [Ativan] 1 mg PO Q12H #6 tab 03/27/25 [Rx] Follow up Appointment(s)/Referral(s): Mich Arias MD [STAFF PHYSICIAN] - 1 Week Activity/Diet/Wound Care/Special Instructions: No driving while taking [place] No lifting over 10 pounds Shower daily. No soaking or tub baths for 2 weeks Remove Optifoam silver midline incisional dressing on 03/30/2025. Patient then can have soap and water run over the midline incision in the shower. Discharge Disposition: HOME SELF-CARE
== END 2025-03-27 16:18 | disposition home or self-care (01) ==
LOC: OR 05:37 → 5NMEDONC 08:23 → OR 03-27 16:18
PROVIDERS: ATTEND Surgery
DX: K43.0 Incisional hernia with obstruction, without gangrene (principal); E11.9 Type 2 diabetes mellitus without complications; E66.9 Obesity, unspecified; G89.18 Other acute postprocedural pain; I73.1 Thromboangiitis obliterans [Buerger's disease]; J44.89 Other specified chronic obstructive pulmonary disease; Z79.82 Long term (current) use of aspirin; Z79.899 Other long term (current) drug therapy
CPT/HCPCS: 94640; 64468; 84132; 49594; S4990; J2250; J1644; J1100; J0690; J2405; J1650; J3010; J1171 ×3; J1885 ×2; 80053; 85027